=== PATIENT | male | born 1940 | race Caucasian/White ===

== ENCOUNTER → 2017-05-02 | Outpatient (CLI) | payer MEDICARE, BC ==
--- NOTE | 2017-05-02 08:47 | US ---
EXAMINATION TYPE: US duplex aorta DATE OF EXAM: 05/02/2017 COMPARISON: NONE CLINICAL HISTORY: Z13.6 CARDIOVASCULAR DISORDER. Back pain EXAM MEASUREMENTS: Abdominal Aorta: Proximal: 2.6 x 2.2cm Mid: 2.4 x 2.8cm Distal: 4.3 x 4.8cm Bifurcation: 1.8cm 2.7cm Aneurysm seen at dist level infrarenal, extending down through bilateral bifurcation IMPRESSION: Infrarenal abdominal aortic aneurysm
== END | disposition home or self-care (01) ==
LOC: RADUSWWP 07:12
PROVIDERS: ATTEND Family Medicine
DX: Z13.6 Encounter for screening for cardiovascular disorders (principal); I71.4 Abdominal aortic aneurysm, without rupture
CPT/HCPCS: 93979

== ENCOUNTER 2017-05-09 09:59 | Inpatient (IN) | payer MEDICARE, BC ==
[2017-05-09] MEDS ORDERED: SODIUM CHLORIDE 0.9% 1,000 ML IV STA (10:12)
--- NOTE | 2017-05-09 10:13 | ED ---
Chest Pain HPI - General Stated Complaint: Pneumonia Time Seen by Provider: 05/09/17 09:59 Source: patient, family, EMS, RN notes reviewed Mode of arrival: EMS - History of Present Illness Initial Comments: This is a 77-year-old male who presents with complains of a cough for the past 3 days he's had clear phlegm he also has some chest pain it started after coughing it gets worse with cough and movement. He is a decreased oral intake he was noted by paramedics have a blood pressure of 89/59 after 500 mL of IV fluid it went to 101/61. He has some dizziness. He also had a fever. He had no other complaints at this time. MD Complaint: chest pain, other - Related Data Home Medications Medication Instructions Recorded Confirmed Atorvastatin [Lipitor] 20 mg PO HS 05/09/17 05/09/17 Fluticasone/Salmeterol [Advair 1 inhalation PO RT-BID 05/09/17 05/09/17 250-50 Diskus] Isosorbide Mononitrate ER [Imdur] 30 mg PO DAILY 05/09/17 05/09/17 Levothyroxine Sodium [Synthroid] 112 mcg PO DAILY 05/09/17 05/09/17 Prasugrel [Effient] 10 mg PO DAILY 05/09/17 05/09/17 Sertraline [Zoloft] 50 mg PO DAILY 05/09/17 05/09/17 traMADol HCL [Ultram] 50 mg PO TID PRN 05/09/17 05/09/17 Allergies Allergy/AdvReac Type Severity Reaction Status Date / Time iodine Allergy Rash/Hives Verified 05/09/17 10:46 Review of Systems ROS Statement: Those systems with pertinent positive or pertinent negative responses have been documented in the HPI. ROS Other: All systems not noted in ROS Statement are negative. EKG Findings - EKG Results: EKG: interpreted by RAY, sinus rhythm (Sinus rhythm rate of 83. Interval 146 QRS duration 82 QT since QTC of 370/434 nonspecific T-wave configuration.) Course Vital Signs 05/09/17 05/09/17 05/09/17 10:00 11:11 12:11 Temperature 100.7 F H Pulse Rate 87 81 80 Respiratory 20 20 20 Rate Blood Pressure 101/55 102/58 97/54 O2 Sat by Pulse 95 95 95 Oximetry 05/09/17 14:00 Temperature Pulse Rate 80 Respiratory 20 Rate Blood Pressure 97/54 O2 Sat by Pulse 95 Oximetry Chest Pain MDM - MDM I did review the imaging and report is evidence a right lower lobe infiltrate. I did discuss findings with the patient family she'll be admitted for IV antibiotics and inpatient treatment. Lactic acid was negative. Disposition Clinical Impression: Right lower lobe pneumonia, Febrile illness, acute, Bronchospasm, acute Disposition: ADMITTED IP TO THIS HOSP Condition: Stable Referrals: Jess Singleton DO [Primary Care Provider] - 1-2 days Decision Time: 15:00
[2017-05-09 10:23] LABS: Anisocytosis Slight; Basophils % (A) 0 %; CH 28.8; CHCM 33.5; Eosinophils % (A) 0 %; HCT 36.7 % (39.0-53.0); HGB 11.9 gm/dL (13.0-17.5); Luc # (Auto) 0.07; Luc % (Auto) 1; Lymphocytes # (A) 0.5 k/uL (1.0-4.8); Lymphocytes % (A) 6 %; MCHC 32.4 g/dL (31.0-37.0); MCV 86.4 fL (80.0-100.0); Mean Platelet Volume 7.1; Monocytes # (A) 0.3 k/uL (0-1.0); Monocytes % (A) 4 %; Neutrophils # (A) 8.7 k/uL (1.3-7.7); Neutrophils % (A) 90 %; RBC 4.24 m/uL (4.30-5.90); RDW 17.1 % (11.5-15.5); WBC 9.7 k/uL (3.8-10.6); WBC (Perox) 10.17
[2017-05-09 10:40] LABS: ALT 25 U/L (21-72); AST 14 U/L (17-59); Alkaline Phosphatase 166 U/L (38-126); Anion Gap 6 mmol/L; Blood Urea Nitrogen 18 mg/dL (9-20); Calcium 8.4 mg/dL (8.4-10.2); Carbon Dioxide 24 mmol/L (22-30); Chloride 106 mmol/L (98-107); Glucose 99 mg/dL (74-99); Magnesium 1.5 mg/dL (1.6-2.3); Non-African American GFR(MDRD) >60 (>60 ml/min/1.73 sqM); Partial Thromboplastin Time 25.4 sec (22.0-30.0); Potassium 4.5 mmol/L (3.5-5.1); Prothrombin Time 10.4 sec (9.0-12.0); Sodium 136 mmol/L (137-145); Total Bilirubin 0.5 mg/dL (0.2-1.3); Total Protein 5.9 g/dL (6.3-8.2)
--- NOTE | 2017-05-09 10:43 | XR ---
EXAMINATION TYPE: XR chest 2V DATE OF EXAM: 05/09/2017 HISTORY: difficulty breathing. REFERENCE: NONE. FINDINGS: There has been a midline sternotomy. There is an S-shaped scoliosis convex to the right in the thoracic region and to the left in the lumbar region. The lungs are overinflated. There is scarring or atelectasis at both lung bases. There is confluent a irspace disease in the right lower lobe. Heart size is within normal limits. Pleural spaces are clear . IMPRESSION: 1. COPD. 2. RIGHT LOWER LOBE AIRSPACE DISEASE. 3. PROBABLE ATELECTASIS, LEFT LUNG BASE.
[2017-05-09 10:46] LABS: Creatine Kinase 53 U/L (55-170)
[2017-05-09 10:57] LABS: Creatine Kinase MB 0.5 ng/mL (0.0-2.4); Troponin I <0.012 ng/mL (0.000-0.034)
[2017-05-09] MEDS ORDERED: PIPERACILLIN-TAZOBACTAM 3.375 GM in DEXTROSE/WATER 1 50ML.BAG IVPB STA (16:03)
[2017-05-09] MEDS ORDERED: PNEUMONIA PROTOCOL UTILIZED 1 EACH MISC PO PRN (16:38)
[2017-05-09] MEDS ORDERED: LEVOFLOXACIN 750MG-D5W PMX 750 MG in DEXTROSE/WATER 1 150ML.BAG IVPB STA (16:38)
[2017-05-09] MEDS: SODIUM CHLORIDE 0.9% 1,000 ML IV SCH (18:47)
[2017-05-09] MEDS ORDERED: IPRATROPIUM-ALBUTEROL 3 ML NEB INHALATION SCH (20:00)
[2017-05-09] MEDS: SYMBICORT 80-4.5 MCG INHALER INHALATION SCH (20:38)
[2017-05-09] MEDS ORDERED: IPRATROPIUM-ALBUTEROL 3 ML NEB INHALATION PRN (20:46)
[2017-05-09] MEDS: ATORVASTATIN 20 MG TAB PO SCH (20:52)
[2017-05-09] MEDS: traMADol 50 MG TAB PO PRN (20:52)
[2017-05-10] MEDS: PIPERACILLIN-TAZOBACTAM 3.375 GM in DEXTROSE/WATER 1 50ML.BAG IVPB SCH ×2 (00:13→07:55)
[2017-05-10] MEDS: LEVOTHYROXINE 112 MCG TAB PO SCH (06:11)
[2017-05-10] MEDS: IPRATROPIUM-ALBUTEROL 3 ML NEB INHALATION SCH ×4 (07:06→19:17)
[2017-05-10] MEDS: SYMBICORT 80-4.5 MCG INHALER INHALATION SCH ×2 (07:06→19:16)
[2017-05-10] MEDS: PRASUGREL 10 MG TAB PO SCH (07:56)
[2017-05-10] MEDS: SERTRALINE 50 MG TAB PO SCH (07:56)
[2017-05-10] MEDS: ISOSORBIDE MONONITRATE ER 30 MG TAB.ER.24H PO SCH (07:56)
--- NOTE | 2017-05-10 15:02 | P.HPIM ---
History of Present Illness 77-year-old gentleman came in with compensative cough generalized weakness and back pain patient does have chronic back pain which is worse. Patient is found to have fever patient is found to have infiltrate in the right lower lung holguin. Patient was started on antibiotic therapy appropriately for pneumonia but patient was started on levofloxacin and Zosyn treating for healthcare associated pneumonia although patient doesn't qualify for healthcare associated pneumonia. Patient has significant improvement of shortness of breath since yesterday. Patient had pleuritic chest pain which completely resolved at this point of time. Patient was hypotensive blood pressure improved with IV fluid resuscitation patient can use to be in 100 mL of normal saline at this point of time. Patient was switched to ceftriaxone and erythromycin combination. Sputum cultures and blood cultures were ordered. Review of Systems REVIEW OF SYSTEMS: CONSTITUTIONAL: No fever, no malaise, no fatigue. HEENT: No recent visual problems or hearing problems. Denied any sore throat. CARDIOVASCULAR: No chest pain, orthopnea, PND, no palpitations, no syncope. PULMONARY: no hemoptysis. GASTROINTESTINAL: No diarrhea, no nausea, no vomiting, no abdominal pain. Normoactive bowel sounds. NEUROLOGICAL: No headaches, no weakness, no numbness. HEMATOLOGICAL: Denies any bleeding or petechiae. GENITOURINARY: Denies any burning micturition, frequency, or urgency. MUSCULOSKELETAL/RHEUMATOLOGICAL: Denies any joint pain, swelling, or any muscle pain. ENDOCRINE: Denies any polyuria or polydipsia. The rest of the 14-point review of systems is negative. Past Medical History Past Medical History: Coronary Artery Disease (CAD), Cancer, Chest Pain / Angina , COPD, GERD/Reflux, Hyperlipidemia, Myocardial Infarction (IN), Osteoarthritis (OA), Pneumonia, Prostate Disorder, Sleep Apnea/CPAP/BIPAP, Thyroid Disorder Additional Past Medical History / Comment(s): BACK PAIN,herniated disc, pinched nerves,emphysema, hemorrhoids,skin cancer, walt cataracts-had sx, thin skin prone to bruises/skin tears. Last Myocardial Infarction Date:: unk History of Any Multi-Drug Resistant Organisms: None Reported Past Surgical History: Coronary Bypass/CABG Additional Past Surgical History / Comment(s): cataracts, 3 vessel cabg, past peg tube since removed." lizbet in penis", hemorrhoids, ?egd. pmh : lap heller myotomy Past Anesthesia/Blood Transfusion Reactions: No Reported Reaction Smoking Status: Current every day smoker - Past Family History Mother Family Medical History: Cancer Additional Family Medical History / Comment(s): breast cancer Sister(s) Family Medical History: Cancer Additional Family Medical History / Comment(s): colon cancer Father History Unknown: Yes Additional Family Medical History / Comment(s): pt's father when pt was 3 years old. Medications and Allergies Home Medications Medication Instructions Recorded Confirmed Type Atorvastatin [Lipitor] 20 mg PO HS 05/09/17 05/09/17 History Fluticasone/Salmeterol [Advair 1 inhalation PO RT-BID 05/09/17 05/09/17 History 250-50 Diskus] Isosorbide Mononitrate ER [Imdur] 30 mg PO DAILY 05/09/17 05/09/17 History Levothyroxine Sodium [Synthroid] 112 mcg PO DAILY 05/09/17 05/09/17 History Prasugrel [Effient] 10 mg PO DAILY 05/09/17 05/09/17 History Sertraline [Zoloft] 50 mg PO DAILY 05/09/17 05/09/17 History traMADol HCL [Ultram] 50 mg PO TID PRN 05/09/17 05/09/17 History Allergies Allergy/AdvReac Type Severity Reaction Status Date / Time iodine Allergy Rash/Hives Verified 05/09/17 10:46 Physical Exam Vitals: Vital Signs Temp Pulse Pulse Resp BP BP Pulse Ox 05/10/17 11:27 68 05/10/17 11:08 70 05/10/17 07:19 78 05/10/17 07:09 76 14 05/10/17 07:00 96.4 F L 67 16 98/52 96 05/09/17 23:00 99.2 F 74 14 89/52 100 05/09/17 22:42 16 05/09/17 18:34 95.0 F L 83 16 103/62 99 05/09/17 18:07 98.5 F 76 20 97/54 97 05/09/17 16:38 99.1 F 05/09/17 16:00 74 18 94/57 95 05/09/17 15:00 78 18 93/42 95 Intake and Output 05/09/17 05/10/17 05/10/17 22:59 06:59 14:59 Output Total 725 Balance -725 Output: Urine 725 Other: # Voids 1 # Bowel Movements 1 Results CBC & Chem 7: 05/09/17 10:10 05/09/17 10:10 Labs: Microbiology - Last 24 Hours (Table) 05/09/17 10:10 Blood Culture - Preliminary Blood No Growth after 24 hours Thrombosis Risk Factor Assmnt - Choose All That Apply Any of the Below Risk Factors Present?: Yes Each Factor Represents 1 point: Abnormal pulmonary function (COPD), Serious lung disease incl. pneumonia (< 1month), Swollen legs (current) Other Risk Factors: Yes Each Risk Factor Represents 2 Points: Malignancy Each Risk Factor Represents 3 Points: Age 75 years or older Other congenital or acquired thrombophilia - If yes, enter type in comment: No Thrombosis Risk Factor Assessment Total Risk Factor Score: 8 Thrombosis Risk Factor Assessment Level: High Risk Assessment and Plan Plan: 1 sepsis secondary to right lower lobe pneumonia come in today quite most probably pneumococcal pneumonia for which patient is on Rocephin and azithromycin awaiting cultures as mentioned above. #2 COPD: Doesn't have any significant exacerbation. Patient is willing to quit smoking. #3 gastric severely reflux disease #4 hyperlipidemia #5 coronary artery disease #6 sleep apnea uses CPAP machine at home. #7 hypothyroidism Patient will be treated for sepsis with cephalexin and azithromycin with close clinical monitoring awaiting blood cultures and the sputum cultures and for rest of the above-mentioned chronic mental problems patient will continued on home medications.
--- NOTE | 2017-05-10 15:05 | XR ---
EXAMINATION TYPE: XR chest 2V DATE OF EXAM: 05/10/2017 COMPARISON: 05/09/2017 HISTORY: Cough and concern for pneumonia TECHNIQUE: Frontal and lateral views of the chest are obtained. FINDINGS: Improving right lower lobe airspace disease is again appreciated. Left basal atelectasis i s seen. Remainder the lungs are clear. Cardia mediastinal silhouette is within normal limits with pos tsurgical changes and surgical lopez noted at the gastroesophageal junction. Osseous structures quin ear intact. IMPRESSION: Improving right lower lobe pneumonia. Persistent left basilar atelectasis.
[2017-05-10] MEDS ORDERED: LEVOFLOXACIN 750 MG TAB PO SCH (17:00)
[2017-05-10] MEDS: SODIUM CHLORIDE 0.9% 1,000 ML IV SCH (18:13)
[2017-05-10] MEDS: traMADol 50 MG TAB PO PRN (18:15)
[2017-05-10] MEDS: ATORVASTATIN 20 MG TAB PO SCH (20:34)
[2017-05-11] MEDS: LEVOTHYROXINE 112 MCG TAB PO SCH (06:19)
[2017-05-11] MEDS: PRASUGREL 10 MG TAB PO SCH (08:01)
[2017-05-11] MEDS: ISOSORBIDE MONONITRATE ER 30 MG TAB.ER.24H PO SCH (08:01)
[2017-05-11] MEDS: SERTRALINE 50 MG TAB PO SCH (08:01)
[2017-05-11 08:04] VITALS: BP 111/60; TEMP 97.5
[2017-05-11] MEDS: traMADol 50 MG TAB PO PRN (08:04)
[2017-05-11] MEDS: SYMBICORT 80-4.5 MCG INHALER INHALATION SCH (08:15)
[2017-05-11] MEDS: IPRATROPIUM-ALBUTEROL 3 ML NEB INHALATION SCH ×2 (08:15→11:34)
[2017-05-11 08:24] LABS: Anisocytosis Slight; CH 28.4; CHCM 33.6; HCT 32.5 % (39.0-53.0); HDW 2.65; HGB 10.6 gm/dL (13.0-17.5); MCH 27.5 pg (25.0-35.0); MCHC 32.5 g/dL (31.0-37.0); MCV 84.6 fL (80.0-100.0); Mean Platelet Volume 8.1; RBC 3.84 m/uL (4.30-5.90); RDW 16.9 % (11.5-15.5); WBC 5.8 k/uL (3.8-10.6)
[2017-05-11 08:39] LABS: Anion Gap 3 mmol/L; Blood Urea Nitrogen 12 mg/dL (9-20); Calcium 8.4 mg/dL (8.4-10.2); Carbon Dioxide 27 mmol/L (22-30); Chloride 109 mmol/L (98-107); Glucose 92 mg/dL (74-99); Non-African American GFR(MDRD) >60 (>60 ml/min/1.73 sqM); Potassium 4.5 mmol/L (3.5-5.1); Sodium 139 mmol/L (137-145)
[2017-05-11] MEDS ORDERED: AZITHROMYCIN 500 MG TAB PO SCH (09:00)
[2017-05-11 11:36] VITALS: PULSE 74; RESP 14
--- NOTE | 2017-05-11 12:47 | P.DS ---
Providers Date of admission: 05/09/17 16:38 Attending physician: Rosanna Guaman Primary care physician: Jess Singleton Hospital Course: Patient was admitted for sepsis secondary to right lower lobe pneumonia symptoms of which improved and patient will ablate the patient in the hallway and if his vitals are stable and if his saturations are okay patient will be discharged with extensive counseling for his smoking. PHYSICAL EXAMINATION: GENERAL: The patient is alert and oriented x3, not in any acute distress. Well developed, well nourished. HEENT: Pupils are round and equally reacting to light. EOMI. No scleral icterus. No conjunctival pallor. Normocephalic, atraumatic. No pharyngeal erythema. No thyromegaly. CARDIOVASCULAR: S1 and S2 present. No murmurs, rubs, or gallops. PULMONARY: Chest is clear to auscultation, no wheezing or crackles. ABDOMEN: Soft, nontender, nondistended, normoactive bowel sounds. No palpable organomegaly. MUSCULOSKELETAL: No joint swelling or deformity. EXTREMITIES: No cyanosis, clubbing, or pedal edema. NEUROLOGICAL: Gross neurological examination did not reveal any focal deficits. SKIN: No rashes. 1 sepsis secondary to right lower lobe pneumonia come in today quite most probably pneumococcal pneumonia for which patient is on Rocephin and azithromycin awaiting cultures as mentioned above. #2 COPD: Doesn't have any significant exacerbation. Patient is willing to quit smoking. #3 gastric severely reflux disease #4 hyperlipidemia #5 coronary artery disease #6 sleep apnea uses CPAP machine at home. #7 hypothyroidism Patient Condition at Discharge: Stable Plan - Discharge Summary New Discharge Prescriptions: New Azithromycin [Zithromax] 500 mg PO DAILY #5 tab Cefuroxime Axetil [Ceftin] 500 mg PO BID #14 tab Continue traMADol HCL [Ultram] 50 mg PO TID PRN PRN Reason: Pain Prasugrel [Effient] 10 mg PO DAILY Sertraline [Zoloft] 50 mg PO DAILY Levothyroxine Sodium [Synthroid] 112 mcg PO DAILY Isosorbide Mononitrate ER [Imdur] 30 mg PO DAILY Fluticasone/Salmeterol [Advair 250-50 Diskus] 1 inhalation PO RT-BID Atorvastatin [Lipitor] 20 mg PO HS Discharge Medication List Atorvastatin [Lipitor] 20 mg PO HS 05/09/17 [History] Fluticasone/Salmeterol [Advair 250-50 Diskus] 1 inhalation PO RT-BID 05/09/17 [ History] Isosorbide Mononitrate ER [Imdur] 30 mg PO DAILY 05/09/17 [History] Levothyroxine Sodium [Synthroid] 112 mcg PO DAILY 05/09/17 [History] Prasugrel [Effient] 10 mg PO DAILY 05/09/17 [History] Sertraline [Zoloft] 50 mg PO DAILY 05/09/17 [History] traMADol HCL [Ultram] 50 mg PO TID PRN 05/09/17 [History] Azithromycin [Zithromax] 500 mg PO DAILY #5 tab 05/11/17 [Rx] Cefuroxime Axetil [Ceftin] 500 mg PO BID #14 tab 05/11/17 [Rx] Follow up Appointment(s)/Referral(s): Jess Singleton DO [Primary Care Provider] - 05/16/17 10:20 am [facility], [NON-STAFF] - Patient Instructions/Handouts: Pneumonia (DC) Discharge Disposition: HOME SELF-CARE
== END 2017-05-11 15:33 | disposition home health service (06) | DRG 871 ==
LOC: EC 09:59 → 4MS4W 16:38
PROVIDERS: ADMIT Internal Medicine; ATTEND Internal Medicine
DX: A41.9 Sepsis, unspecified organism (principal); J13 Pneumonia due to Streptococcus pneumoniae; J44.0 Chronic obstructive pulmonary disease with (acute) lower respiratory infection; E03.9 Hypothyroidism, unspecified; E78.5 Hyperlipidemia, unspecified; F17.200 Nicotine dependence, unspecified, uncomplicated; G47.30 Sleep apnea, unspecified; G89.29 Other chronic pain; I25.10 Atherosclerotic heart disease of native coronary artery without angina pectoris; K21.9 Gastro-esophageal reflux disease without esophagitis; Y95 Nosocomial condition; Z79.899 Other long term (current) drug therapy; I25.2 Old myocardial infarction; Z80.0 Family history of malignant neoplasm of digestive organs; Z80.3 Family history of malignant neoplasm of breast; Z85.828 Personal history of other malignant neoplasm of skin; Z95.1 Presence of aortocoronary bypass graft
CPT/HCPCS: 36415; 71020; 80048; 80053; 82550; 82553; 83605; 83735; 83880; 84484; 85025; 85027; 85610; 85730; 87040; 87070; 87205; 93005; 94640; 94760; 96360; 96361; 99285

== ENCOUNTER → 2018-03-22 | Outpatient (CLI) | payer SELFPAY ==
[2018-03-22 10:35] LABS: Blood Urea Nitrogen 21 mg/dL (9-20)
--- NOTE | 2018-03-22 13:40 | CT ---
EXAMINATION TYPE: CT angio abdomen pelvis DATE OF EXAM: 03/22/2018 11:21 AM COMPARISON: Ultrasound dated 04/30/2017 HISTORY: Known aneurysm. Follow-up exam. CT DLP: 330.5 mGycm Automated exposure control for dose reduction was used. TECHNIQUE: Performed with IV Contrast, patient injected with 100 mL of Isovue 370. Standard CTA abdomen and pelv is was performed per departmental protocol. 3-D reformats of the vasculature were performed at a [employer] workstation. FINDINGS: LUNGS: Peripheral basilar predominant reticular opacities are seen that may represent early fibrosis or senescent change. VASCULATURE: There is tortuosity of the visualized descending thoracic aorta. Moderate upper abdomina l calcific and noncalcific atheromatous changes are seen with severe lower abdominal and left iliac c alcific and noncalcific atheromatous changes. There is tortuosity of the descending thoracic aorta in addition to a long segment infrarenal aortic aneurysm beginning approximately 4.3 cm distal to the l eft renal artery and extending to the aortoiliac bifurcation over a craniocaudal length of 6.3 cm. Th is measures up to 5.5 x 4.9 cm on series 4 image 36. There is extent into the left common iliac arter y with the left common iliac artery measuring up to 3.7 cm and ectasia of the left external iliac art olga. Aneurysmal dilatation is seen of the entirety of the left common iliac artery. There is greater than 50% luminal stenosis from circumferential atheromatous plaquing within the left common iliac art olga. The celiac, superior mesenteric, and renal arteries are patent. There appears to be occlusion of the inferior mesenteric artery, however inferior mesenteric artery branches appear somewhat opacified lik yonas related to collateral flow. BOWEL: Postsurgical changes are seen at the gastroesophageal junction. No dilated large or small tamiko l is noted. Scattered colonic diverticula are present. Few small bowel air-fluid levels are seen with out dilatation suggesting increased transit time. Appendix is air-filled and within normal limits. LIVER/GALLBLADDER: The liver is grossly unremarkable. No cholelithiasis. SPLEEN: Unremarkable without splenomegaly. ADRENAL GLANDS: No nodularity or thickening. PANCREAS: No ductal dilatation. Moderate pancreatic probable atrophy is seen. KIDNEYS: There is a 3 cm left upper pole cyst, 4 cm left midpole cyst, and a 1.1 cm left lower pole c ysts. Nonobstructing left 4 mm lower pole calculus is seen as well as a small amount of perinephric f luid. On the right there is a small exophytic right lower pole 1.0 cm cyst. REPRODUCTIVE ORGANS: Prostate gland is enlarged measuring 5.3 cm in transverse dimension with numerou s central zone calcifications and penile prosthesis is incidentally noted. LYMPH NODES: No greater than 1 cm short axis lymph node is seen within the abdomen or pelvis. OSSEOUS STRUCTURES: Moderate multilevel degenerative changes of the spine are noted. Geographic lesio n within the left femoral head is seen without subchondral collapse this appears atypical for avascul ar necrosis and could be further evaluated with MR as this could represent a geode or other lesion. IMPRESSION: 1. INCREASING SIZE OF THE INFRARENAL ABDOMINAL AORTIC ANEURYSM CURRENTLY MEASURING UP TO 5.5 X 4.9 CM (PREVIOUSLY MEASURING 4.3 X 4.8 CM ON THE PRIOR ULTRASOUND OF 05/02/2017). THERE IS EXTENT INTO THE L EFT COMMON ILIAC ARTERY MEASURING UP TO 3.7 CM. EXTENSIVE CALCIFIC AND NONCALCIFIC ATHEROMATOUS PLAQU ING IS SEEN OF THE ABDOMINAL AORTA AND ITS BRANCHES CREATING GREATER THAN 50% LUMINAL DIAMETER OF THE ENTIRETY OF THE LEFT COMMON ILIAC ARTERY. 2. 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 3. GEOGRAPHIC LESION WITHIN THE LEFT FEMORAL HEAD WITHOUT FEMORAL HEAD COLLAPSE. THIS IS ATYPICAL FOR AVASCULAR NECROSIS AND COULD REPRESENT A GEODE OR OTHER LESION. FURTHER CHARACTERIZATION WITH MR COU LD BE PERFORMED.
== END | disposition home or self-care (01) ==
LOC: RADCTMAIN 09:52
PROVIDERS: ATTEND Thoracic Surgery (Cardiothoracic Vascular Surgery)
DX: I71.4 Abdominal aortic aneurysm, without rupture (principal); I70.0 Atherosclerosis of aorta; K55.069 Acute infarction of intestine, part and extent unspecified; M89.8X5 Other specified disorders of bone, thigh
CPT/HCPCS: 82565; 84520; 74174; Q9967

== ENCOUNTER → 2018-05-10 | Outpatient (CLI) | payer MEDICARE ==
--- NOTE | 2018-05-11 07:54 | CT ---
EXAMINATION TYPE: CT chest wo con DATE OF EXAM: 05/10/2018 COMPARISON: HISTORY: Cough and shortness of breath. CT DLP: 306.[address] of the chest was performed with lung and mediastinal window settings submitted. The la ck of contrast limits evaluation of the vascular, mediastinal and parenchymal structures including th e upper abdomen. LUNGS: There are scattered subpleural fibrosis compatible with mild etiopathic pulmonary fibrosis. Th ere is mild upper lobe emphysematous change greatest in the right lung apex. No evidence for nodule o r infiltrate. No pleural effusion detected. MEDIASTINUM/BRIANA: Thoracic aorta is of normal caliber with limited evaluation given lack of contrast . The heart is not enlarged. No evidence for mediastinal mass. No lymph nodes greater than 1cm. UPPER ABDOMEN: Renal cystic changes noted. Small sliding-type hiatal hernia. OTHER: No significant other abnormality. IMPRESSION: 1. Mild changes of hepatic pulmonary fibrosis. 2. Upper lobe emphysematous change.
== END | disposition home or self-care (01) ==
LOC: RADCTMAIN 17:48
PROVIDERS: ATTEND Internal Medicine
DX: J84.10 Pulmonary fibrosis, unspecified (principal); J44.9 Chronic obstructive pulmonary disease, unspecified
CPT/HCPCS: 71250

== ENCOUNTER 2019-02-20 13:49 | Emergency (ER) | payer MEDICARE ==
[2019-02-20 13:58] VITALS: TEMP 97.7
[2019-02-20] MEDS ORDERED: SODIUM CHLORIDE 0.9% 1,000 ML IV STA (14:28)
[2019-02-20 14:53] LABS: Basophils % (A) 0 %; Eosinophils # (A) 0.1 k/uL (0-0.7); Eosinophils % (A) 1 %; HCT 41.5 % (39.0-53.0); HGB 13.2 gm/dL (13.0-17.5); Lymphocytes # (A) 2.2 k/uL (1.0-4.8); Lymphocytes % (A) 25 %; MCH 26.9 pg (25.0-35.0); MCHC 31.9 g/dL (31.0-37.0); MCV 84.4 fL (80.0-100.0); Mean Platelet Volume 7.2; Monocytes # (A) 0.5 k/uL (0-1.0); Monocytes % (A) 6 %; Neutrophils # (A) 5.9 k/uL (1.3-7.7); Neutrophils % (A) 67 %; Platelet Count 190 k/uL (150-450); RBC 4.92 m/uL (4.30-5.90); RDW 15.7 % (11.5-15.5); WBC 8.8 k/uL (3.8-10.6)
--- NOTE | 2019-02-20 14:54 | ED ---
General Adult HPI - General Chief complaint: Urogenital Stated complaint: Trouble Urinating Time Seen by Provider: 02/20/19 14:16 Source: patient, RN notes reviewed, old records reviewed Mode of arrival: wheelchair Limitations: no limitations - History of Present Illness Initial comments: 78-year-old male patient with past medical history including COPD, h yperlipidemia, prior SC, coronary artery disease presents ED with chief complaint of approximately 3 months of dysuria, urinary frequency, urgency. Patient reports that after urination he has mild burning in his urethra. Patient also reports that he has to urinate many times today and he is not able to continue the bathroom in time he has a small amount of urinary leakage. Patient states that he does have a history of BPH. Patient reports that he has been seen by his primary care provider for this and has been wearing a condom catheter at home. Patient reports that he condom catheter is inconvenient and he wishes to have a urinary catheter placed. Patient states that he presented to his primary care provider for this complaint and was retracted to the emergency department as he states that they did not place urinary catheters at the office. Patient denies any other complaints at this time. Denies any chest pain shortness breath abdominal pain nausea vomiting diarrhea. Systemic: Pt denies fatigue, fever/chills, rash. Pt denies weakness, night sweats, weight loss. Neuro: Pt denies headache, visual disturbances, syncope or pre-syncope. HEENT: Pt denies ocular discharge or irritation, otalgia, rhinorrhea, pharyngitis or notable lymphadenopathy. Cardiopulmonary: Pt denies chest pain, SOB, heart palpitations, dyspnea on exertion. Abdominal/GI: Pt denies abdominal pain, n/v/d. : Pt denies dysuria, burning w/ urination, frequency/urgency. Denies new onset urinary or bowel incontinence. MSK: Pt denies myalgia, loss of strength or function in extremities. Neuro: Pt denies new onset weakness, paresthesias. - Related Data Home Medications Medication Instructions Recorded Confirmed Atorvastatin [Lipitor] 20 mg PO HS 05/09/17 02/20/19 Isosorbide Mononitrate ER [Imdur] 30 mg PO DAILY 05/09/17 02/20/19 Levothyroxine Sodium [Synthroid] 112 mcg PO DAILY 05/09/17 02/20/19 Prasugrel [Effient] 10 mg PO DAILY 05/09/17 02/20/19 Sertraline [Zoloft] 50 mg PO DAILY 05/09/17 02/20/19 Aspirin 325 mg PO DAILY 02/20/19 02/20/19 Fluticasone/Salmeterol [Advair 1 puff INHALATION RT-BID 02/20/19 02/20/19 500-50 Diskus] Tiotropium [place] [Spiriva] 1 cap INHALATION RT-DAILY 02/20/19 02/20/19 Tolterodine ER [Detrol LA] 2 mg PO DAILY 02/20/19 02/20/19 Previous Rx's Medication Instructions Recorded Cephalexin [Keflex] 500 mg PO Q12HR 10 Days cap 02/20/19 Allergies Allergy/AdvReac Type Severity Reaction Status Date / Time iodine Allergy Rash/Hives Verified 02/20/19 14:30 Review of Systems ROS Statement: Those systems with pertinent positive or pertinent negative responses have been documented in the HPI. ROS Other: All systems not noted in ROS Statement are negative. Past Medical History Past Medical History: Coronary Artery Disease (CAD), Cancer, Chest Pain / Angina, COPD, GERD/Reflux, Hyperlipidemia, Myocardial Infarction ([place]), Osteoarthritis (OA), Pneumonia, Prostate Disorder, Sleep Apnea/CPAP/BIPAP, Thyroid Disorder Additional Past Medical History / Comment(s): BACK PAIN,herniated disc, pinched nerves,emphysema, hemorrhoids,skin cancer, walt cataracts-had sx, thin skin prone to bruises/skin tears. Last Myocardial Infarction Date:: unk History of Any Multi-Drug Resistant Organisms: None Reported Past Surgical History: Coronary Bypass/CABG Additional Past Surgical History / Comment(s): cataracts, 3 vessel cabg, past peg tube since removed." lizbet in penis", hemorrhoids, ?egd. pmh : lap heller myotomy Past Anesthesia/Blood Transfusion Reactions: No Reported Reaction Past Psychological History: No Psychological Hx Reported Smoking Status: Current every day smoker Past Alcohol Use History: Rare Past Drug Use History: None Reported - Past Family History Mother Family Medical History: Cancer Additional Family Medical History / Comment(s): breast cancer Sister(s) Family Medical History: Cancer Additional Family Medical History / Comment(s): colon cancer Father History Unknown: Yes Additional Family Medical History / Comment(s): pt's father when pt was 3 years old. General Exam - General Exam Comments Initial Comments: Constitutional: NAD, AOX3, Pt has pleasant affect. HEENT: NC/AT, trachea midline, neck supple, no lymphadenopathy. Posterior pharynx non erythematous, without exudates. External ears appear normal, without discharge. Mucous membranes moist. Eyes PERRLA, EOM intact. There is no scleral icterus. No pallor noted. Cardiopulmonary: RRR, no murmurs, rubs or gallops, no JVD noted. Lungs CTAB in anterior and posterior holguin. No peripheral edema. Abdominal exam: Abdomen soft and non-distended. Abdomen non-tender to palpation in all 4 quadrants. Bowel sounds active in LLQ. No hepatosplenomegaly. No ecchymosis Neuro: CN II-XII grossly intact. No nuchal rigidity. No raccon eyes, no ordonez sign, no hemotympanum. No cervical spinal tenderness. MSK: No posterior calf tenderness bilaterally, homans sign negative bilaterally. Posterior tibialis and radial pulse +2 bilaterally. Sensation intact in upper and lower extremities. Full active ROM in upper and lower extremities, 5/5 stregnth. Limitations: no limitations Course Vital Signs 02/20/19 02/20/19 02/20/19 13:52 15:30 16:22 Temperature 97.7 F Pulse Rate 99 76 77 Respiratory 18 18 18 Rate Blood Pressure 90/64 100/69 108/76 O2 Sat by Pulse 92 L 98 96 Oximetry 02/20/19 17:02 Temperature Pulse Rate 71 Respiratory 17 Rate Blood Pressure 123/80 O2 Sat by Pulse 94 L Oximetry Medical Decision Making - Medical Decision Making 78-year-old male patient with past medical history including COPD, hyperlipidemia, prior SC, coronary artery disease presents ED with chief complaint of approximately 3 months of dysuria, urinary frequency, urgency. Patient reports that after urination he has mild burning in his urethra. Patient also reports that he has to urinate many times today and he is not able to continue the bathroom in time he has a small amount of urinary leakage. Patient states that he does have a history of BPH. Patient reports that he has been seen by his primary care provider for this and has been wearing a condom catheter at home. Patient reports that he condom catheter is inconvenient and he wishes to have a urinary catheter placed. Patient states that he presented to his primary care provider for this complaint and was retracted to the emergency department as he states that they did not place urinary catheters at the office. Patient denies any other complaints at this time. Denies any chest pain shortness breath abdominal pain nausea vomiting diarrhea. Patient also has dental, afebrile. Physical exam did not display acute pathology. O2 investigations revealed nonspecific CBC, CMP. Lactic acid 1.0. UA displayed mild urinary tract infection. Culture pending. Bladder scan displayed approximately 70 residual post void. Patient will be discharged, will follow up with urology in one to 2 days. Patient discharged on Keflex. Administered 1 g Rocephin here. Patient will return to ER if condition worsens. Case discussed with Dr. Shea. - Lab Data Result diagrams: 02/20/19 14:40 02/20/19 14:40 Lab Results 02/20/19 02/20/19 02/20/19 Range/Units 14:40 14:40 14:40 WBC 8.8 (3.8-10.6) k/uL RBC 4.92 (4.30-5.90) m/uL Hgb 13.2 (13.0-17.5) gm/dL Hct 41.5 (39.0-53.0) % MCV 84.4 (80.0-100.0) fL MCH 26.9 (25.0-35.0) pg MCHC 31.9 (31.0-37.0) g/dL RDW 15.7 H (11.5-15.5) % Plt Count 190 (150-450) k/uL Neutrophils % 67 % Lymphocytes % 25 % Monocytes % 6 % Eosinophils % 1 % Basophils % 0 % Neutrophils # 5.9 (1.3-7.7) k/uL Lymphocytes # 2.2 (1.0-4.8) k/uL Monocytes # 0.5 (0-1.0) k/uL Eosinophils # 0.1 (0-0.7) k/uL Basophils # 0.0 (0-0.2) k/uL Sodium 140 (137-145) mmol/L Potassium 4.6 (3.5-5.1) mmol/L Chloride 108 H (98-107) mmol/L Carbon Dioxide 29 (22-30) mmol/L Anion Gap 3 mmol/L BUN 19 (9-20) mg/dL Creatinine 0.87 (0.66-1.25) mg/dL Est GFR (CKD-EPI)AfAm >90 (>60 ml/min/1.73 sqM) Est GFR (CKD-EPI)NonAf 82 (>60 ml/min/1.73 sqM) Glucose 108 H (74-99) mg/dL Plasma Lactic Acid Kiran 1.0 (0.7-2.0) mmol/L Calcium 9.2 (8.4-10.2) mg/dL Total Bilirubin 0.4 (0.2-1.3) mg/dL AST 14 L (17-59) U/L ALT 10 L (21-72) U/L Alkaline Phosphatase 113 (38-126) U/L Total Protein 6.3 (6.3-8.2) g/dL Albumin 3.5 (3.5-5.0) g/dL Urine Color Urine Appearance (Clear) Urine pH (5.0-8.0) Ur Specific [place] (1.001-1.035) Urine Protein (Negative) Urine Glucose (UA) (Negative) Urine Ketones (Negative) Urine Blood (Negative) Urine Nitrite (Negative) Urine Bilirubin (Negative) Urine Urobilinogen (<2.0) mg/dL Ur Leukocyte Esterase (Negative) Urine RBC (0-5) /hpf Urine WBC (0-5) /hpf Ur Squamous Epith Cells (0-4) /hpf Urine Bacteria (None) /hpf Hyaline Casts (0-2) /lpf Urine Mucus (None) /hpf 02/20/19 Range/Units 15:00 WBC (3.8-10.6) k/uL RBC (4.30-5.90) m/uL Hgb (13.0-17.5) gm/dL Hct (39.0-53.0) % MCV (80.0-100.0) fL MCH (25.0-35.0) pg MCHC (31.0-37.0) g/dL RDW (11.5-15.5) % Plt Count (150-450) k/uL Neutrophils % % Lymphocytes % % Monocytes % % Eosinophils % % Basophils % % Neutrophils # (1.3-7.7) k/uL Lymphocytes # (1.0-4.8) k/uL Monocytes # (0-1.0) k/uL Eosinophils # (0-0.7) k/uL Basophils # (0-0.2) k/uL Sodium (137-145) mmol/L Potassium (3.5-5.1) mmol/L Chloride (98-107) mmol/L Carbon Dioxide (22-30) mmol/L Anion Gap mmol/L BUN (9-20) mg/dL Creatinine (0.66-1.25) mg/dL Est GFR (CKD-EPI)AfAm (>60 ml/min/1.73 sqM) Est GFR (CKD-EPI)NonAf (>60 ml/min/1.73 sqM) Glucose (74-99) mg/dL Plasma Lactic Acid Kiran (0.7-2.0) mmol/L Calcium (8.4-10.2) mg/dL Total Bilirubin (0.2-1.3) mg/dL AST (17-59) U/L ALT (21-72) U/L Alkaline Phosphatase (38-126) U/L Total Protein (6.3-8.2) g/dL Albumin (3.5-5.0) g/dL Urine Color Yellow Urine Appearance Clear (Clear) Urine pH 6.0 (5.0-8.0) Ur Specific [place] 1.021 (1.001-1.035) Urine Protein 1+ H (Negative) Urine Glucose (UA) Negative (Negative) Urine Ketones Negative (Negative) Urine Blood Small H (Negative) Urine Nitrite Negative (Negative) Urine Bilirubin Negative (Negative) Urine Urobilinogen 2.0 (<2.0) mg/dL Ur Leukocyte Esterase Negative (Negative) Urine RBC 17 H (0-5) /hpf Urine WBC 7 H (0-5) /hpf Ur Squamous Epith Cells 1 (0-4) /hpf Urine Bacteria Rare H (None) /hpf Hyaline Casts 4 H (0-2) /lpf Urine Mucus Few H (None) /hpf Disposition Clinical Impression: UTI (urinary tract infection) Disposition: HOME SELF-CARE Condition: Stable Instructions (If sedation given, give patient instructions): Urinary Tract Infection in Men (ED) Additional Instructions: Patient to adhere to previously discussed treatment plan and will take medica tion(s) as directed. Patient to follow up with PCP in 1-2 days. Patient to return to ED if symptoms do not improve. Medications directed. Follow up with primary care provider angiologist 1-2 days. Return to ER if condition worsens in any way. Prescriptions: Cephalexin [Keflex] 500 mg PO Q12HR 10 Days cap Is patient prescribed a controlled substance at d/c from ED?: No Referrals: Jess Singleton DO [Primary Care Provider] - 1-2 days Danilo Villanueva MD [STAFF PHYSICIAN] - 1-2 days
[2019-02-20 15:05] LABS: ALT 10 U/L (21-72); AST 14 U/L (17-59); African American GFR (CKD) >90 (>60 ml/min/1.73 sqM); Albumin 3.5 g/dL (3.5-5.0); Alkaline Phosphatase 113 U/L (38-126); Anion Gap 3 mmol/L; Blood Urea Nitrogen 19 mg/dL (9-20); Calcium 9.2 mg/dL (8.4-10.2); Carbon Dioxide 29 mmol/L (22-30); Chloride 108 mmol/L (98-107); Glucose 108 mg/dL (74-99); Potassium 4.6 mmol/L (3.5-5.1); Sodium 140 mmol/L (137-145); Total Bilirubin 0.4 mg/dL (0.2-1.3); Total Protein 6.3 g/dL (6.3-8.2)
[2019-02-20 15:24] LABS: Appearance,Urine Clear (Clear); Bacteria,Urine Rare /hpf; Bilirubin,Urine Negative (Negative); Blood,Urine Small (Negative); Color,Urine Yellow; Glucose,Urine (UA) Negative (Negative); Hyaline Casts,Urine 4 /lpf (0-2); Ketones,Urine Negative (Negative); Leukocyte Esterase,Urine Negative (Negative); Mucus,Urine Few /hpf; Nitrite,Urine Negative (Negative); Protein,Urine 1+ (Negative); RBC,Urine 17 /hpf (0-5); Specific Gravity,Urine 1.021 (1.001-1.035); Squamous Epithelial Cell,Urine 1 /hpf (0-4); WBC,Urine 7 /hpf (0-5)
[2019-02-20] MEDS ORDERED: cefTRIAXone IN SWFI 1,000 MG/10 ML SYRINGE IVP STA (15:37)
[2019-02-20 17:03] VITALS: BP 123/80; PULSE 71; RESP 17
== END 2019-02-20 17:05 | disposition home or self-care (01) ==
LOC: EC 13:49
DX: N39.0 Urinary tract infection, site not specified (principal); I25.10 Atherosclerotic heart disease of native coronary artery without angina pectoris; J44.9 Chronic obstructive pulmonary disease, unspecified; E78.5 Hyperlipidemia, unspecified; I25.2 Old myocardial infarction; E07.9 Disorder of thyroid, unspecified; F17.200 Nicotine dependence, unspecified, uncomplicated; G47.30 Sleep apnea, unspecified; Z99.89 Dependence on other enabling machines and devices; Z87.438 Personal history of other diseases of male genital organs; Z85.828 Personal history of other malignant neoplasm of skin; Z95.1 Presence of aortocoronary bypass graft; Z79.890 Hormone replacement therapy; Z79.82 Long term (current) use of aspirin; Z79.51 Long term (current) use of inhaled steroids; Z79.899 Other long term (current) drug therapy; Z91.048 Other nonmedicinal substance allergy status
CPT/HCPCS: 99284; 96374; 96361; 36415; 80053; 83605; 85025; 81001; 87086; J0696

== ENCOUNTER 2019-03-29 11:06 | Inpatient (IN) | payer MEDICARE ==
[2019-03-29 11:46] LABS: Basophils # (A) 0.1 k/uL (0-0.2); Basophils % (A) 0 %; Eosinophils # (A) 0.1 k/uL (0-0.7); Eosinophils % (A) 1 %; HCT 36.7 % (39.0-53.0); Lymphocytes # (A) 1.8 k/uL (1.0-4.8); Lymphocytes % (A) 17 %; MCHC 32.8 g/dL (31.0-37.0); MCV 82.3 fL (80.0-100.0); Mean Platelet Volume 7.2; Monocytes # (A) 0.4 k/uL (0-1.0); Monocytes % (A) 4 %; Neutrophils # (A) 8.4 k/uL (1.3-7.7); Neutrophils % (A) 77 %; Platelet Count 155 k/uL (150-450); RBC 4.46 m/uL (4.30-5.90); RDW 15.3 % (11.5-15.5); WBC 10.9 k/uL (3.8-10.6)
--- NOTE | 2019-03-29 11:50 | XR ---
EXAMINATION TYPE: XR chest 2V DATE OF EXAM: 03/29/2019 COMPARISON: May 10, 2017 HISTORY: Shortness of breath TECHNIQUE: Frontal and lateral views of the chest are obtained. FINDINGS: Scattered senescent parenchymal changes noted. Hyperinflation compatible with COPD. No evidence for infiltrate. No evidence for atelectasis. Heart size is stable. Hiatal hernia. Mediastinal structures are stable and grossly unremarkable. No evidence for hilar prominence. Degenerative changes dorsal spine. IMPRESSION: 1. No evidence for acute pulmonary disease.
[2019-03-29] MEDS ORDERED: IPRATROPIUM-ALBUTEROL 3 ML NEB INHALATION STA ×2 (11:56→14:16)
[2019-03-29] MEDS ORDERED: methylPREDNISolone SOD SUCCI 125 MG/2 ML VIAL IV STA (11:56)
[2019-03-29 12:02] LABS: Partial Thromboplastin Time 24.8 sec (22.0-30.0); Prothrombin Time 10.6 sec (9.0-12.0)
[2019-03-29 12:06] LABS: ALT 8 U/L (21-72); AST 13 U/L (17-59); African American GFR (CKD) >90 (>60 ml/min/1.73 sqM); Albumin 3.3 g/dL (3.5-5.0); Alkaline Phosphatase 112 U/L (38-126); Anion Gap 6 mmol/L; Blood Urea Nitrogen 16 mg/dL (9-20); Calcium 8.9 mg/dL (8.4-10.2); Carbon Dioxide 26 mmol/L (22-30); Chloride 108 mmol/L (98-107); Glucose 107 mg/dL (74-99); Magnesium 1.8 mg/dL (1.6-2.3); Potassium 3.8 mmol/L (3.5-5.1); Sodium 140 mmol/L (137-145); Total Bilirubin 0.5 mg/dL (0.2-1.3)
--- NOTE | 2019-03-29 13:53 | ED ---
SOB HPI - General Source: patient, EMS Mode of arrival: EMS Limitations: physical limitation <Yanet Sauceda - Last Filed: 03/29/19 17:35> <William Wayne - Last Filed: 03/29/19 18:38> - General Chief Complaint: Shortness of Breath Stated Complaint: SOB Time Seen by Provider: 03/29/19 11:22 - History of Present Illness Initial Comments: 78-year-old male with history of COPD on oxygen 3 L at home, Previous CABG. Presented for chief complaint of shortness of breath. Patient states he did travel to [place] at the end of January. States that she's been home he's been weaker and more short of breath. He states recently in the past week he ran out of his portable oxygen and has not been using it worsening shortness of breath patient denies any hemoptysis lower lip swelling recent surgeries history of cancer he denies any chest pain or pressure. He has a fever states he has a chronic cough. Patient is currently not every day smoker. Patient states he quit yesterday. Remaining ROS (-) Upon arrival patient appears well, no signs of acute distress. Hypoxic on room air. (Yanet Sauceda) - Related Data Home Medications Medication Instructions Recorded Confirmed Atorvastatin [Lipitor] 20 mg PO HS 05/09/17 02/20/19 Isosorbide Mononitrate ER [Imdur] 30 mg PO DAILY 05/09/17 02/20/19 Levothyroxine Sodium [Synthroid] 112 mcg PO DAILY 05/09/17 02/20/19 Prasugrel [Effient] 10 mg PO DAILY 05/09/17 02/20/19 Sertraline [Zoloft] 50 mg PO DAILY 05/09/17 02/20/19 Aspirin 325 mg PO DAILY 02/20/19 02/20/19 Fluticasone/Salmeterol [Advair 1 puff INHALATION RT-BID 02/20/19 02/20/19 500-50 Diskus] Tiotropium [place] [Spiriva] 1 cap INHALATION RT-DAILY 02/20/19 02/20/19 Tolterodine ER [Detrol LA] 2 mg PO DAILY 02/20/19 02/20/19 Previous Rx's Medication Instructions Recorded Cephalexin [Keflex] 500 mg PO Q12HR 10 Days cap 02/20/19 Allergies Allergy/AdvReac Type Severity Reaction Status Date / Time iodine Allergy Rash/Hives Verified 03/29/19 11:22 Review of Systems ROS Other: All systems not noted in ROS Statement are negative. <Yanet Sauceda - Last Filed: 03/29/19 17:35> ROS Other: All systems not noted in ROS Statement are negative. <William Wayne - Last Filed: 03/29/19 18:38> ROS Statement: Those systems with pertinent positive or pertinent negative responses have been documented in the HPI. Past Medical History Past Medical History: Coronary Artery Disease (CAD), Cancer, Chest Pain / Angina, COPD, GERD/Reflux, Hyperlipidemia, Myocardial Infarction ([place]), Osteoarthritis (OA), Pneumonia, Prostate Disorder, Sleep Apnea/CPAP/BIPAP, Thyroid Disorder Additional Past Medical History / Comment(s): BACK PAIN,herniated disc, pinched nerves,emphysema, hemorrhoids,skin cancer, walt cataracts-had sx, thin skin prone to bruises/skin tears. Last Myocardial Infarction Date:: unk History of Any Multi-Drug Resistant Organisms: None Reported Past Surgical History: Coronary Bypass/CABG Additional Past Surgical History / Comment(s): cataracts, 3 vessel cabg, past peg tube since removed." lizbet in penis", hemorrhoids, ?egd. pmh : lap heller myotomy Past Anesthesia/Blood Transfusion Reactions: No Reported Reaction Past Psychological History: No Psychological Hx Reported Smoking Status: Current every day smoker Past Alcohol Use History: Rare Past Drug Use History: None Reported - Past Family History Mother Family Medical History: Cancer Additional Family Medical History / Comment(s): breast cancer Sister(s) Family Medical History: Cancer Additional Family Medical History / Comment(s): colon cancer Father History Unknown: Yes Additional Family Medical History / Comment(s): pt's father when pt was 3 years old. <Yanet Sauceda - Last Filed: 03/29/19 17:35> General Exam Limitations: physical limitation <Yanet Sauceda - Last Filed: 03/29/19 17:35> - General Exam Comments Initial Comments: General: The patient is awake and alert, in no distress, and does not appear acutely ill. Eye: Pupils are equal, round and reactive to light, extra-ocular movements are intact. No nystagmus. There is normal conjunctiva bilaterally. No signs of icterus. Ears, nose, mouth and throat: There are moist mucous membranes and no oral lesions. Neck: The neck is supple, there is no tenderness or JVD. Cardiovascular: There is a regular rate and rhythm. No murmur, rub or gallop is appreciated. Respiratory: Extremities on examination.Respirations are non-labored, breath sounds are equal. No stridor, rales, or rhonchi. Gastrointestinal: [Soft, non-distended, non-tender abdomen without masses or organomegaly noted. There is no rebound or guarding present. No CVA tenderness. Bowel sounds are unremarkable.] Musculoskeletal: Normal ROM, no tenderness. Strength 5/5. Sensation intact. Pulses equal bilaterally 2+. Neurological: A&O x 3. CN II-XII intact, There are no obvious motor or sensory deficits. Coordination appears grossly intact. Speech is normal. Skin: Skin is warm and dry and no rashes or lesions are noted. No LE edema. Psychiatric: Cooperative, appropriate mood & affect, normal judgment. (Yanet Sauceda) Course <William Wayne - Last Filed: 03/29/19 18:38> Vital Signs 03/29/19 03/29/19 03/29/19 11:17 12:00 12:07 Temperature 98.9 F Pulse Rate 75 75 68 Respiratory 22 24 Rate Blood Pressure 111/64 110/77 O2 Sat by Pulse 96 93 L Oximetry 03/29/19 03/29/19 03/29/19 12:12 13:00 14:00 Temperature Pulse Rate 67 71 75 Respiratory 24 22 Rate Blood Pressure 110/65 131/85 O2 Sat by Pulse 94 L 96 Oximetry 03/29/19 03/29/19 03/29/19 14:33 14:38 15:00 Temperature Pulse Rate 75 76 70 Respiratory 24 Rate Blood Pressure 118/74 O2 Sat by Pulse 99 Oximetry 03/29/19 16:06 Temperature Pulse Rate 97 Respiratory 18 Rate Blood Pressure 127/76 O2 Sat by Pulse 97 Oximetry - Reevaluation(s) Reevaluation #1: 03/29/19 18:36 PA supervision: I proceeded [id number] evaluation the patient and did discuss the findings with him. Patient still demonstrates evidence of difficulty breathing with COPD markedly diminished breath sounds in the right side. He states he is supposed be on home oxygen but does not use it and does not have air conditioning at home right now. The ambient temperature outside at the time of this note and evaluation was about 90 with markedly elevated humidity. After discussion the patient he will be admitted for treatment of COPD exacerbation. I did discuss the case with Dr. Oliveira. 03/29/19 18:37 CT negative for PE. (William Wayne) Medical Decision Making - Lab Data Result diagrams: 03/29/19 11:25 03/29/19 11:25 <Yanet Sauceda - Last Filed: 03/29/19 17:35> - Lab Data Result diagrams: 03/29/19 11:25 03/29/19 11:25 <William Wayne - Last Filed: 03/29/19 18:38> - Medical Decision Making -year-old male presenting today for chief complaint of shortness of breath. Ongoing for a month worsening for the past week since he ran out of his portable oxygen On examination no lower extremity swelling. Patient did return 2 months prior from a long vacation with an extended air plane ride. Patient is on a blood thinner. Patient denies any chest pain. D-dimer elevated CTA negative. Chest x-ray no acute process. BMP within acceptable limits. Troponin negative. EKG no findings consistent with acute coronary syndrome. Given patient not having access to portable oxygen, hypoxia. Advanced age after evaluation by Dr. Wayne he recommended admission. Patient is agreeable admission at this time. Dr. Wayne placed admitting orders and spoke with attending. (Yanet Sauceda) - Lab Data Lab Results 03/29/19 03/29/19 03/29/19 Range/Units 11:25 11:25 11:25 WBC 10.9 H (3.8-10.6) k/uL RBC 4.46 (4.30-5.90) m/uL Hgb 12.0 L (13.0-17.5) gm/dL Hct 36.7 L (39.0-53.0) % MCV 82.3 (80.0-100.0) fL MCH 27.0 (25.0-35.0) pg MCHC 32.8 (31.0-37.0) g/dL RDW 15.3 (11.5-15.5) % Plt Count 155 (150-450) k/uL Neutrophils % 77 % Lymphocytes % 17 % Monocytes % 4 % Eosinophils % 1 % Basophils % 0 % Neutrophils # 8.4 H (1.3-7.7) k/uL Lymphocytes # 1.8 (1.0-4.8) k/uL Monocytes # 0.4 (0-1.0) k/uL Eosinophils # 0.1 (0-0.7) k/uL Basophils # 0.1 (0-0.2) k/uL PT (9.0-12.0) sec INR (<1.2) APTT (22.0-30.0) sec D-Dimer (<0.60) mg/L FEU Sodium 140 (137-145) mmol/L Potassium 3.8 (3.5-5.1) mmol/L Chloride 108 H (98-107) mmol/L Carbon Dioxide 26 (22-30) mmol/L Anion Gap 6 mmol/L BUN 16 (9-20) mg/dL Creatinine 0.86 (0.66-1.25) mg/dL Est GFR (CKD-EPI)AfAm >90 (>60 ml/min/1.73 sqM) Est GFR (CKD-EPI)NonAf 82 (>60 ml/min/1.73 sqM) Glucose 107 H (74-99) mg/dL Calcium 8.9 (8.4-10.2) mg/dL Magnesium 1.8 (1.6-2.3) mg/dL Total Bilirubin 0.5 (0.2-1.3) mg/dL AST 13 L (17-59) U/L ALT 8 L (21-72) U/L Alkaline Phosphatase 112 (38-126) U/L Troponin I (0.000-0.034) ng/mL NT-Pro-B Natriuret Pep 476 pg/mL Total Protein 6.0 L (6.3-8.2) g/dL Albumin 3.3 L (3.5-5.0) g/dL 03/29/19 03/29/19 03/29/19 Range/Units 11:25 11:25 11:25 WBC (3.8-10.6) k/uL RBC (4.30-5.90) m/uL Hgb (13.0-17.5) gm/dL Hct (39.0-53.0) % MCV (80.0-100.0) fL MCH (25.0-35.0) pg MCHC (31.0-37.0) g/dL RDW (11.5-15.5) % Plt Count (150-450) k/uL Neutrophils % % Lymphocytes % % Monocytes % % Eosinophils % % Basophils % % Neutrophils # (1.3-7.7) k/uL Lymphocytes # (1.0-4.8) k/uL Monocytes # (0-1.0) k/uL Eosinophils # (0-0.7) k/uL Basophils # (0-0.2) k/uL PT 10.6 (9.0-12.0) sec INR 1.0 (<1.2) APTT 24.8 (22.0-30.0) sec D-Dimer 8.21 H (<0.60) mg/L FEU Sodium (137-145) mmol/L Potassium (3.5-5.1) mmol/L Chloride (98-107) mmol/L Carbon Dioxide (22-30) mmol/L Anion Gap mmol/L BUN (9-20) mg/dL Creatinine (0.66-1.25) mg/dL Est GFR (CKD-EPI)AfAm (>60 ml/min/1.73 sqM) Est GFR (CKD-EPI)NonAf (>60 ml/min/1.73 sqM) Glucose (74-99) mg/dL Calcium (8.4-10.2) mg/dL Magnesium (1.6-2.3) mg/dL Total Bilirubin (0.2-1.3) mg/dL AST (17-59) U/L ALT (21-72) U/L Alkaline Phosphatase (38-126) U/L Troponin I <0.012 (0.000-0.034) ng/mL NT-Pro-B Natriuret Pep pg/mL Total Protein (6.3-8.2) g/dL Albumin (3.5-5.0) g/dL - EKG Data EKG Comments: Ventricular rate 77 bpm, NJ interval 164 ms, QRS duration 82 ms, QT/QTC 396/448. Rhythm is sinus with a marked sinus arrhythmia. Low voltage QRS noted. History of COPD. T wave abnormality noted V2 through V5 and inversion. No ST elevation or depression. (Yanet Sauceda) Disposition <Yanet Sauceda - Last Filed: 03/29/19 17:35> <William Wayne - Last Filed: 03/29/19 18:38> Clinical Impression: Acute exacerbation of chronic obstructive airways disease, Adult respiratory distress syndrome Disposition: ADMITTED IP TO THIS HOSP Condition: Fair Referrals: Jess Singleton DO [Primary Care Provider] - 1-2 days
[2019-03-29] MEDS ORDERED: diphenhydrAMINE 50 MG/ML 1 ML VIAL IVP STA (15:47)
[2019-03-29] MEDS ORDERED: FAMOTIDINE 20 MG/2 ML VIAL IV STA (15:47)
--- NOTE | 2019-03-29 16:58 | CT ---
EXAMINATION TYPE: CT angio chest DATE OF EXAM: 03/29/2019 4:38 PM COMPARISON: 05/10/2018 HISTORY: elevated d-dimer CT DLP: 483.7 mGycm Automated exposure control for dose reduction was used. CONTRAST: CTA scan of the thorax is performed with IV Contrast, patient injected with 100 mL of Isovue 370, pul monary embolism protocol. . There are 3-D post processed images. FINDINGS: There is pulmonary emphysema. There is coarse interstitial infiltrate and some pleural reticular dens ity in both lungs. There is no pleural effusion. There is minimal pleural thickening at the right pos terior lung base. There is no pericardial effusion. Thoracic aorta is atheromatous. There is mild 4 c m aneurysm ascending aorta. There is no evidence of dissection. There is normal contrast opacification of the pulmonary arteries. I see no filling defects. There is no mediastinal adenopathy. There are no hilar masses. There is spondylotic changes in the thoracic spine. There is no significant loss of height. There is 5% wedging of T4 vertebra. There is also 5% wedging of T8 vertebra. There is a minimal subluxation at T9-T10 of 4 mm. IMPRESSION: NO EVIDENCE OF PULMONARY EMBOLISM. ATHEROSCLEROTIC VASCULAR DISEASE. 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 HEART AND LUNGS APPEAR NOT SIGNIFICANTLY DIFFERENT KEZIA N OLD CT SCAN OF 05/10/2018. STABLE THORACIC SPINE COMPARED TO OLD EXAM.
[2019-03-29] MEDS ORDERED: SODIUM CHLORIDE 0.9% 1,000 ML IV SCH (18:45)
[2019-03-29] MEDS ORDERED: IPRATROPIUM-ALBUTEROL 3 ML NEB INHALATION SCH ×2 (20:00→20:15)
[2019-03-29] MEDS ORDERED: ATORVASTATIN 20 MG TAB PO SCH (21:00)
[2019-03-29] MEDS: SYMBICORT 160-4.5 MCG INHALER INHALATION SCH (21:06)
[2019-03-29] MEDS ORDERED: IPRATROPIUM-ALBUTEROL 3 ML NEB INHALATION PRN (21:28)
[2019-03-29] MEDS: CEPHALEXIN 500 MG CAP PO SCH (21:49)
[2019-03-29] MEDS: methylPREDNISolone SOD SUCCI 125 MG/2 ML VIAL IV SCH (23:33)
[2019-03-30] MEDS: methylPREDNISolone SOD SUCCI 125 MG/2 ML VIAL IV SCH ×2 (05:11→08:23)
[2019-03-30] MEDS ORDERED: LEVOTHYROXINE 112 MCG TAB PO SCH (06:30)
[2019-03-30 06:42] VITALS: BP 114/73
[2019-03-30 07:25] LABS: Glucose,Whole Blood 154 mg/dL (75-99)
[2019-03-30] MEDS: IPRATROPIUM-ALBUTEROL 3 ML NEB INHALATION SCH ×3 (07:46→15:40)
[2019-03-30] MEDS: SYMBICORT 160-4.5 MCG INHALER INHALATION SCH (07:46)
[2019-03-30] MEDS ORDERED: IPRATROPIUM 0.5 MG/2.5 ML NEBU INHALATION SCH (08:00)
[2019-03-30] MEDS: CEPHALEXIN 500 MG CAP PO SCH (08:22)
[2019-03-30] MEDS: INSULIN ASPART (NovoLOG) 100 UNIT/ML VIAL SQ SCH ×2 (08:33→12:25)
[2019-03-30] MEDS ORDERED: SERTRALINE 50 MG TAB PO SCH (09:00)
[2019-03-30] MEDS ORDERED: PRASUGREL 10 MG TAB PO SCH (09:00)
[2019-03-30] MEDS ORDERED: ASPIRIN 325 MG TAB PO SCH (09:00)
[2019-03-30] MEDS ORDERED: OXYBUTYNIN XL 5 MG TAB.ER.24 PO SCH (09:00)
[2019-03-30] MEDS ORDERED: ISOSORBIDE MONONITRATE ER 30 MG TAB.ER.24H PO SCH (09:00)
[2019-03-30 11:55] LABS: Glucose,Whole Blood 223 mg/dL (75-99)
[2019-03-30 14:30] VITALS: RESP 18; TEMP 97.3
--- NOTE | 2019-03-30 15:18 | P.HPIM ---
History of Present Illness H&P Date: 03/30/19 Chief Complaint: Shortness of breath Mr. Pedersen is a 78-year-old gentleman with a past medical history of coronary disease, COPD, hypertension, hyperlipidemia, prostate disorder, thyroid disorder, coming into the hospital with a chief complaint of difficulty in breathing. Patient states that he has been having more difficulty in breathing for the past couple of days. But on the day of admission when he was lighting a cigarette he became more short of breath and decided to come to the hospital. At baseline patient is on 3 L of home oxygen for his end-stage COPD. Patient denies having any chest pain. As the patient had a recent travel to [place] at the end of January, and had elevated d-dimer in the ED he got a CT for PE in the ER that was negative. Patient is currently admitted for COPD exacerbation he has been started on IV Solu-Medrol and breathing treatments along with antibiotic therapy. Today the patient is lying comfortably in the bed he states that he has been feeling good. He is mentions that his back to his baseline. As per the nursing staff report no events reported overnight. On review of systems patient denies having any chest pain, palpitations, orthopnea or PND. No complaints of abdominal pain nausea vomiting or diarrhea. No dysuria or hematuria. No dizziness or loss of consciousness. No weakness of his extremities .No slurring of speech. No neck rigidity. No lower extremity swelling. Review of Systems REVIEW OF SYSTEMS: PSYCH: Normal psychiatric exam NEURO:No c/o weakness of the extremties, No facial droop, No speech abnormalities. VASCULAR: Peripheral nervous system within the normal limits no edema HEMATOLOGIC: No history of easy bleeding and bruising . No recent infections . RESPIRATORY: As per HPI IMMUNE: No infections INTEGUMENT: no rashes OPHTHALMOLOGIC: No blurry vision and no eye discharge : No dysuria or hematuria CARDIAC: No chest pain , shortness of breath , paroxysmal nocturnal dyspnea MUSCULOSKELETAL : No Aches or pains in the joints or muscles. GI: No abdominal pain, Nausea or vomiting. No constipation or diarrhea. Past Medical History Past Medical History: Coronary Artery Disease (CAD), Cancer, Chest Pain / Angina, COPD, GERD/Reflux, Hyperlipidemia, Myocardial Infarction (ND), Osteoarthritis (OA), Pneumonia, Prostate Disorder, Sleep Apnea/CPAP/BIPAP, Thyroid Disorder Additional Past Medical History / Comment(s): BACK PAIN,herniated disc, pinched nerves,emphysema, hemorrhoids,skin cancer, walt cataracts-had sx, thin skin prone to bruises/skin tears. Last Myocardial Infarction Date:: unk History of Any Multi-Drug Resistant Organisms: None Reported Past Surgical History: Coronary Bypass/CABG Additional Past Surgical History / Comment(s): cataracts, 3 vessel cabg, past peg tube since removed." lizbet in penis", hemorrhoids, ?egd. pmh : lap heller myotomy Past Anesthesia/Blood Transfusion Reactions: No Reported Reaction Past Psychological History: No Psychological Hx Reported Additional Psychological History / Comment(s): pt lives with his [address] in apt built onto his sons home. has 3 steps to enter it. pt uses [employer] when up. no outside services. no past TRi[employer] service. retires from the [employer] at [employer]. Smoking Status: Current every day smoker Past Alcohol Use History: Rare Additional Past Alcohol Use History / Comment(s): started smoking at age 12- has quit here and there. stated if busy outside or on project will smoke 1 ppd, if just sitting at home smokes 2 ppd. in past drank heavy-quit 36 years ago. Past Drug Use History: None Reported - Past Family History Mother Family Medical History: Cancer Additional Family Medical History / Comment(s): breast cancer Sister(s) Family Medical History: Cancer Additional Family Medical History / Comment(s): colon cancer Father History Unknown: Yes Additional Family Medical History / Comment(s): pt's father when pt was 3 years old. Medications and Allergies Home Medications Medication Instructions Recorded Confirmed Type Atorvastatin [Lipitor] 20 mg PO HS 05/09/17 03/29/19 History Isosorbide Mononitrate ER [Imdur] 30 mg PO DAILY 05/09/17 03/29/19 History Levothyroxine Sodium [Synthroid] 112 mcg PO DAILY 05/09/17 03/29/19 History Prasugrel [Effient] 10 mg PO DAILY 05/09/17 03/29/19 History Sertraline [Zoloft] 50 mg PO DAILY 05/09/17 03/29/19 History Aspirin 325 mg PO DAILY 02/20/19 03/29/19 History Tolterodine ER [Detrol LA] 2 mg PO DAILY 02/20/19 03/29/19 History Ipratropium-Albuterol Nebulize 3 ml INHALATION RT-TID 03/29/19 03/29/19 History [Duoneb 0.5 mg-3 mg/3 ml Soln] Montelukast [Singulair] 10 mg PO DAILY 03/29/19 03/29/19 History Budesonide-Formot 160-4.5 Mcg 2 puff INHALATION BID 30 Days #1 03/30/19 Rx [Symbicort 160-4.5 Mcg Inhaler] inhaler Allergies Allergy/AdvReac Type Severity Reaction Status Date / Time iodine Allergy Rash/Hives Verified 03/29/19 19:05 Physical Exam Vitals: Vital Signs Temp Pulse Pulse Resp BP BP Pulse Ox 03/30/19 14:29 97.3 F L 76 18 95 03/30/19 11:12 74 03/30/19 11:02 72 03/30/19 05:00 97.9 F 95 20 114/73 100 03/29/19 21:50 97.9 F 82 16 104/74 90 L 03/29/19 20:00 98.4 F 78 24 128/75 96 03/29/19 19:00 77 22 119/77 96 03/29/19 18:00 79 22 117/74 96 03/29/19 17:00 71 24 116/70 95 03/29/19 16:06 97 18 127/76 97 03/29/19 15:00 70 24 118/74 99 03/29/19 14:38 76 Intake and Output 03/29/19 03/30/19 03/30/19 22:59 06:59 14:59 Intake Total 250 Output Total 250 300 Balance -250 -50 Intake: Oral 250 Output: Urine 250 300 Other: Voiding Method Incontinent # Voids 1 GEN. APPEARANCE: alert, in no apparent distress HEAD EXAM: atraumatic, normocephalic, normal inspection EYE EXAM: normal appearance, PERRL, EOMI. Absent: scleral icterus, conjunctival injection, periorbital swelling ENT EXAM: normal exam, mucous membranes moist NECK EXAM: normal inspection. Absent: tenderness, meningismus, full ROM, lymphadenopathy RESPIRATORY EXAM: Decreased bilateral breath sounds. No wheezing or crackles. CARDIOVASCULAR EXAM: S1-S2 heard. GI/ABDOMINAL EXAM: soft, normal bowel sounds. Absent: distended, tenderness, guarding, rebound, rigid EXTREMITIES EXAM: normal inspection, full ROM, normal capillary refill. Absent: tenderness, pedal edema, joint swelling, calf tenderness NEUROLOGICAL EXAM: alert, oriented X3, no focal neurological deficits PSYCHIATRIC EXAM: normal affect, normal mood SKIN EXAM: Skin is very thin and frail Results CBC & Chem 7: 03/29/19 11:25 03/29/19 11:25 Labs: Abnormal Lab Results - Last 24 Hours (Table) 03/29/19 03/30/19 03/30/19 Range/Units 11:25 07:17 11:30 D-Dimer 8.21 H (<0.60) mg/L FEU POC Glucose (mg/dL) 154 H 223 H (75-99) mg/dL Comments: CTA of the chest negative for PE Thrombosis Risk Factor Assmnt - Choose All That Apply Any of the Below Risk Factors Present?: Yes Each Factor Represents 1 point: Abnormal pulmonary function (COPD) Other Risk Factors: Yes Each Risk Factor Represents 2 Points: Age 61-74 years Thrombosis Risk Factor Assessment Total Risk Factor Score: 3 Thrombosis Risk Factor Assessment Level: Moderate Risk Assessment and Plan Assessment: ASSESSMENT Acute hypoxic respiratory failure due to COPD exacerbation Acute COPD exacerbation Coronary artery disease Current smoker GERD Hyperlipidemia History of ND Multiple joint osteoarthritis Obstructive sleep apnea Thyroid disorder History of skin cancer History of skin tears PLAN: Patient has received breathing treatments and few doses of Solu-Medrol. He he states his breathing is back to his baseline. His home medications have been resumed and his doing quite well. He requests that he would want to go home. The patient is being discharged home in a stable condition to have a follow-up with his primary care physician in 2-3 days. Time with Patient: Greater than 30
--- NOTE | 2019-03-30 15:24 | P.DS ---
Providers Date of admission: 03/29/19 18:38 Expected date of discharge: 03/30/19 Attending physician: Annette Oliveira Primary care physician: Jess Singleton [facility] Course: Mr. Pedersen is a 78-year-old gentleman with a past medical history of coronary disease, COPD, hypertension, hyperlipidemia, prostate disorder, thyroid disorder, coming into the hospital with a chief complaint of difficulty in breathing. Patient states that he has been having more difficulty in breathing for the past couple of days. But on the day of admission when he was lighting a cigarette he became more short of breath and decided to come to the hospital. A t baseline patient is on 3 L of home oxygen for his end-stage COPD. Patient denies having any chest pain. As the patient had a recent travel to [place] at the end of January, and had elevated d-dimer in the ED he got a CT for PE in the ER that was negative. Patient is currently admitted for COPD exacerbation he has been started on IV Solu-Medrol and breathing treatments along with antibiotic therapy. Today the patient is lying comfortably in the bed he states that he has been feeling good. He is mentions that his back to his baseline. As per the nursing staff report no events reported overnight. Allergies Allergy/AdvReac Type Severity Reaction Status Date / Time iodine Allergy Rash/Hives Verified 03/29/19 19:05 Physical Exam Vitals: Vital Signs Temp Pulse Pulse Resp BP BP Pulse Ox 03/30/19 14:29 97.3 F L 76 18 95 03/30/19 11:12 74 03/30/19 11:02 72 03/30/19 05:00 97.9 F 95 20 114/73 100 03/29/19 21:50 97.9 F 82 16 104/74 90 L 03/29/19 20:00 98.4 F 78 24 128/75 96 03/29/19 19:00 77 22 119/77 96 03/29/19 18:00 79 22 117/74 96 03/29/19 17:00 71 24 116/70 95 03/29/19 16:06 97 18 127/76 97 03/29/19 15:00 70 24 118/74 99 03/29/19 14:38 76 Intake and Output 03/29/19 03/30/19 03/30/19 22:59 06:59 14:59 Intake Total 250 Output Total 250 300 Balance -250 -50 Intake: Oral 250 Output: Urine 250 300 Other: Voiding Method Incontinent # Voids 1 GEN. APPEARANCE: alert, in no apparent distress HEAD EXAM: atraumatic, normocephalic, normal inspection EYE EXAM: normal appearance, PERRL, EOMI. Absent: scleral icterus, conjunctival injection, periorbital swelling ENT EXAM: normal exam, mucous membranes moist NECK EXAM: normal inspection. Absent: tenderness, meningismus, full ROM, lymphadenopathy RESPIRATORY EXAM: Decreased bilateral breath sounds. No wheezing or crackles. CARDIOVASCULAR EXAM: S1-S2 heard. GI/ABDOMINAL EXAM: soft, normal bowel sounds. Absent: distended, tenderness, guarding, rebound, rigid EXTREMITIES EXAM: normal inspection, full ROM, normal capillary refill. Absent: tenderness, pedal edema, joint swelling, calf tenderness NEUROLOGICAL EXAM: alert, oriented X3, no focal neurological deficits PSYCHIATRIC EXAM: normal affect, normal mood SKIN EXAM: Skin is very thin and frail Results CBC & Chem 7: 03/29/19 11:25 03/29/19 11:25 Labs: Abnormal Lab Results - Last 24 Hours (Table) 03/29/19 03/30/19 03/30/19 Range/Units 11:25 07:17 11:30 D-Dimer 8.21 H (<0.60) mg/L FEU POC Glucose (mg/dL) 154 H 223 H (75-99) mg/dL Comments: CTA of the chest negative for PE Thrombosis Risk Factor Assmnt - Choose All That Apply Any of the Below Risk Factors Present?: Yes Each Factor Represents 1 point: Abnormal pulmonary function (COPD) Other Risk Factors: Yes Each Risk Factor Represents 2 Points: Age 61-74 years Thrombosis Risk Factor Assessment Total Risk Factor Score: 3 Thrombosis Risk Factor Assessment Level: Moderate Risk DISCHARGE DIAGNOSIS Acute hypoxic respiratory failure due to COPD exacerbation Acute COPD exacerbation Coronary artery disease Current smoker GERD Hyperlipidemia History of [place] Multiple joint osteoarthritis Obstructive sleep apnea Thyroid disorder History of skin cancer History of skin tears PLAN: Patient is back to his baseline breathing status. Patient is on albuterol and Singulair but does not take a maintenance inhaler so he has been started on Symbicort which is a new medication. The rest of his medications are the same. He is advised to follow-up with his primary care physician in 3-4 days. Patient Condition at Discharge: Fair Plan - Discharge Summary New Discharge Prescriptions: New Budesonide-Formot 160-4.5 Mcg [Symbicort 160-4.5 Mcg Inhaler] 2 puff INHALATION BID 30 Days #1 inhaler Continue Prasugrel [Effient] 10 mg PO DAILY Sertraline [Zoloft] 50 mg PO DAILY Levothyroxine Sodium [Synthroid] 112 mcg PO DAILY Isosorbide Mononitrate ER [Imdur] 30 mg PO DAILY Atorvastatin [Lipitor] 20 mg PO HS Tolterodine ER [Detrol LA] 2 mg PO DAILY Aspirin 325 mg PO DAILY Montelukast [Singulair] 10 mg PO DAILY Ipratropium-Albuterol Nebulize [Duoneb 0.5 mg-3 mg/3 ml Soln] 3 ml INHALATION RT-TID Discharge Medication List Atorvastatin [Lipitor] 20 mg PO HS 05/09/17 [History] Isosorbide Mononitrate ER [Imdur] 30 mg PO DAILY 05/09/17 [History] Levothyroxine Sodium [Synthroid] 112 mcg PO DAILY 05/09/17 [History] Prasugrel [Effient] 10 mg PO DAILY 05/09/17 [History] Sertraline [Zoloft] 50 mg PO DAILY 05/09/17 [History] Aspirin 325 mg PO DAILY 02/20/19 [History] Tolterodine ER [Detrol LA] 2 mg PO DAILY 02/20/19 [History] Ipratropium-Albuterol Nebulize [Duoneb 0.5 mg-3 mg/3 ml Soln] 3 ml INHALATION RT-TID 03/29/19 [History] Montelukast [Singulair] 10 mg PO DAILY 03/29/19 [History] Budesonide-Formot 160-4.5 Mcg [Symbicort 160-4.5 Mcg Inhaler] 2 puff INHALATION BID 30 Days #1 inhaler 03/30/19 [Rx] Follow up Appointment(s)/Referral(s): Jess Singleton DO [Primary Care Provider] - 1-2 days
[2019-03-30 15:51] VITALS: PULSE 78
[2019-03-30] MEDS ORDERED: BISACODYL 5 MG TABLET.DR PO SCH (21:00)
== END 2019-03-30 19:00 | disposition home or self-care (01) | DRG 190 ==
LOC: EC 11:06 → 4MS4W 18:38
PROVIDERS: ADMIT Internal Medicine; ATTEND Internal Medicine
DX: J43.9 Emphysema, unspecified (principal); J96.01 Acute respiratory failure with hypoxia; E07.9 Disorder of thyroid, unspecified; E78.5 Hyperlipidemia, unspecified; F17.210 Nicotine dependence, cigarettes, uncomplicated; G47.33 Obstructive sleep apnea (adult) (pediatric); I10 Essential (primary) hypertension; I25.10 Atherosclerotic heart disease of native coronary artery without angina pectoris; I25.2 Old myocardial infarction; K21.9 Gastro-esophageal reflux disease without esophagitis; M19.90 Unspecified osteoarthritis, unspecified site; N42.9 Disorder of prostate, unspecified; R32 Unspecified urinary incontinence; Z79.02 Long term (current) use of antithrombotics/antiplatelets; Z79.51 Long term (current) use of inhaled steroids; Z79.82 Long term (current) use of aspirin; Z79.890 Hormone replacement therapy; Z79.899 Other long term (current) drug therapy; Z99.81 Dependence on supplemental oxygen; Z95.1 Presence of aortocoronary bypass graft; Z91.041 Radiographic dye allergy status; Z85.828 Personal history of other malignant neoplasm of skin; Z87.01 Personal history of pneumonia (recurrent); Z98.42 Cataract extraction status, left eye; Z98.41 Cataract extraction status, right eye; Z96.1 Presence of intraocular lens; Z80.0 Family history of malignant neoplasm of digestive organs; Z80.3 Family history of malignant neoplasm of breast
CPT/HCPCS: 36415; 71046; 71275; 80053; 83735; 83880; 84484; 85025; 85379; 85610; 85730; 93005; 94640; 96374; 96375; 99285

== ENCOUNTER 2019-04-08 15:19 | Inpatient (IN) | payer MEDICARE ==
[2019-04-08] MEDS ORDERED: NOREPINEPHRINE 4 MG in SODIUM CHLORIDE 0.9% 250 ML IV ONE (15:30)
--- NOTE | 2019-04-08 15:40 | ED ---
General Adult HPI - General Chief complaint: Recheck/Abnormal Lab/Rx Stated complaint: cardiac Time Seen by Provider: 04/08/19 15:32 Source: patient, EMS Mode of arrival: EMS Limitations: physical limitation - History of Present Illness Initial comments: 78-year-old male presenting from an outpatient surgery center with the chief complaint of hypotension and possible cardiac arrest. Per report the patient was there receiving a cystoscopy for bladder cancer. He was given propofol and became hypotensive. Per the report he was possibly pulseless in the OR. No CPR was done, but 2 rounds of epinephrine were given with improvement of the hypotension and mental status. The patient was then started on a dopamine infusion. On presentation the patient currently only has complaints of mild suprapubic tenderness. Patient has a history of a CABG, hyperthyroidism, hypercholesterolemia, CAD, and COPD. - Related Data Home Medications Medication Instructions Recorded Confirmed Atorvastatin [Lipitor] 20 mg PO HS 05/09/17 04/08/19 Isosorbide Mononitrate ER [Imdur] 30 mg PO DAILY 05/09/17 04/08/19 Levothyroxine Sodium [Synthroid] 112 mcg PO DAILY 05/09/17 04/08/19 Prasugrel [Effient] 10 mg PO DAILY 05/09/17 04/08/19 Sertraline [Zoloft] 50 mg PO DAILY 05/09/17 04/08/19 Aspirin 325 mg PO DAILY 02/20/19 04/08/19 Tolterodine ER [Detrol LA] 2 mg PO DAILY 02/20/19 04/08/19 Ipratropium-Albuterol Nebulize 3 ml INHALATION RT-TID 03/29/19 04/08/19 [Duoneb 0.5 mg-3 mg/3 ml Soln] Montelukast [Singulair] 10 mg PO DAILY 03/29/19 04/08/19 Budesonide-Formot 160-4.5 Mcg 2 puff INHALATION RT-BID 04/08/19 04/08/19 [Symbicort 160-4.5 Mcg Inhaler] Cranberry Fruit Concentrate [Azo 250 mg PO DAILY 04/08/19 04/08/19 Cranberry] Allergies Allergy/AdvReac Type Severity Reaction Status Date / Time iodine Allergy Rash/Hives Verified 04/08/19 17:08 Review of Systems ROS Statement: Those systems with pertinent positive or pertinent negative responses have been documented in the HPI. Review of Systems Constitutional: Denies fever, chills Eyes: Denies change in vision, Denies pain Ears, nose, mouth, throat: Denies headaches, Denies sore throat Cardiovascular: Denies chest pain. Denies palpitations Respiratory: Denies shortness of breath, Denies cough Gastrointestinal: Positive abdominal pain. Denies nausea, vomiting, diarrhea. Genitourinary: Denies hematuria, Denies infections Musculoskeletal: Denies pain, Denies swelling Integumentary: Denies rash Neurological: Denies headache, focal weakness, focal numbness Psychiatric: Denies anxiety, Denies depression Hematologic/Lymphatic: Denies easy bleeding or bruising ROS Other: All systems not noted in ROS Statement are negative. Past Medical History Past Medical History: Coronary Artery Disease (CAD), Cancer, Chest Pain / Angina, COPD, GERD/Reflux, Hyperlipidemia, Myocardial Infarction (LA), Osteoarthritis (OA), Pneumonia, Prostate Disorder, Sleep Apnea/CPAP/BIPAP, Th yroid Disorder Additional Past Medical History / Comment(s): BACK PAIN,herniated disc, pinched nerves,emphysema, hemorrhoids,skin cancer, walt cataracts-had sx, thin skin prone to bruises/skin tears. Last Myocardial Infarction Date:: unk History of Any Multi-Drug Resistant Organisms: None Reported Past Surgical History: Coronary Bypass/CABG Additional Past Surgical History / Comment(s): cataracts, 3 vessel cabg, past peg tube since removed." lizbet in penis", hemorrhoids, ?egd. pmh : lap heller myotomy Past Anesthesia/Blood Transfusion Reactions: No Reported Reaction Past Psychological History: No Psychological Hx Reported Smoking Status: Current every day smoker Past Alcohol Use History: Rare Past Drug Use History: None Reported - Past Family History Mother Family Medical History: Cancer Additional Family Medical History / Comment(s): breast cancer Sister(s) Family Medical History: Cancer Additional Family Medical History / Comment(s): colon cancer Father History Unknown: Yes Additional Family Medical History / Comment(s): pt's father when pt was 3 years old. General Exam - General Exam Comments Initial Comments: General: Awake, alert, No acute Distress HENT: Normocephalic. Atraumatic. Left IJ single-lumen central line Eyes: PERRL. EOMI. No scleral icterus. No injected conjunctiva Neck: Full ROM Chest/Lungs: Clear to auscultation bilaterally. No wheezing, rhonchi, or rales Cardiac: Regular rate, rhythm. No murmurs or rubs Abdomen/GI: Soft, nontender, nondistended. No rebound, guarding, or rigidity. Musculoskeletal: Full ROM Skin: Warm, dry, intact Neurologic: A/Ox3, no weakness, no sensory deficit, no abnormal gait, no coordination deficit Limitations: physical limitation Course Vital Signs 04/08/19 04/08/19 04/08/19 15:20 16:03 16:45 Temperature 97.5 F L Pulse Rate 98 102 H Respiratory 18 18 Rate Blood Pressure 86/42 105/75 104/74 O2 Sat by Pulse 96 99 Oximetry 04/08/19 04/08/19 17:29 18:54 Temperature Pulse Rate 93 98 Respiratory 18 18 Rate Blood Pressure 107/81 107/77 O2 Sat by Pulse 96 93 L Oximetry EKG Findings - EKG Comments: EKG Findings:: EKG shows normal sinus rhythm with a PVC and a rate of [address] segment elevation, depression. No prolonged QT/QTc or TX interval. No dysrythmia noted. Medical Decision Making - Medical Decision Making 78-year-old male presenting with an episode of severe hypotension and outpatient surgery center. Initial presentation to the ER the patient is awake, alert, he's in no acute distress. He is borderline hypotensive on a dopamine infusion at 9 mcg/kg/m. He is not complaining of any chest pain or shortness of breath. On the paperwork from the facility there is noted to be concern for ST segment elevation, however on review of their paperwork it appears that this is a PVC. AG here shows no evidence of a STEMI. The patient has a single lumen central line as well as to large-bore peripheral IVs. We'll hold on replacing the central line for a triple-lumen as the patient is only requiring pressors and IV fluids at this point. Started the patient on Levophed infusion and DC'd the dopamine. He was found to have an elevated troponin and lactic acid, however at this time this is likely seconary to his profound hypotension then it was due to ACS. A CT was done to evaluate the patient's known aortic aneurysm, and showed to change in size. Patient was unable to receive contrast due to allergy. I spoke with Dr. Sandoval who recommended continuing IV fluids regardless of the interstitial prominence seen on CT. Patient is currently on his home O2 and is no respiratory distress. Patient's CT showed new hydronephrosis consistent with obstruction that is new since March 2018. Patient has a joy in that is draining clear urine. - Lab Data Result diagrams: 04/08/19 15:37 04/08/19 15:37 Lab Results 04/08/19 04/08/19 04/08/19 Range/Units 15:37 15:37 15:37 WBC (3.8-10.6) k/uL RBC (4.30-5.90) m/uL Hgb (13.0-17.5) gm/dL Hct (39.0-53.0) % MCV (80.0-100.0) fL MCH (25.0-35.0) pg MCHC (31.0-37.0) g/dL RDW (11.5-15.5) % Plt Count (150-450) k/uL Neutrophils % % Lymphocytes % % Monocytes % % Eosinophils % % Basophils % % Neutrophils # (1.3-7.7) k/uL Lymphocytes # (1.0-4.8) k/uL Monocytes # (0-1.0) k/uL Eosinophils # (0-0.7) k/uL Basophils # (0-0.2) k/uL Anisocytosis VBG pH (7.31-7.41) VBG pCO2 (37-51) mmHg VBG HCO3 (24-28) mmol/L Sodium 139 (137-145) mmol/L Potassium 3.7 (3.5-5.1) mmol/L Chloride 110 H (98-107) mmol/L Carbon Dioxide 23 (22-30) mmol/L Anion Gap 6 mmol/L BUN 15 (9-20) mg/dL Creatinine 0.85 (0.66-1.25) mg/dL Est GFR (CKD-EPI)AfAm >90 (>60 ml/min/1.73 sqM) Est GFR (CKD-EPI)NonAf 82 (>60 ml/min/1.73 sqM) Glucose 117 H (74-99) mg/dL Lactic Ac Sepsis Rflx Plasma Lactic Acid Kiran 2.1 H* (0.7-2.0) mmol/L Calcium 8.5 (8.4-10.2) mg/dL Total Bilirubin 0.8 (0.2-1.3) mg/dL Conjugated Bilirubin 0.0 (0.0-0.3) mg/dL Unconjugated Bilirubin 0.8 (0.0-1.1) mg/dL Delta Bilirubin 0.0 (0.0-0.2) mg/dL AST 17 (17-59) U/L ALT 17 L (21-72) U/L Alkaline Phosphatase 97 (38-126) U/L Troponin I (0.000-0.034) ng/mL NT-Pro-B Natriuret Pep 547 pg/mL Total Protein 5.6 L (6.3-8.2) g/dL Albumin 3.0 L (3.5-5.0) g/dL Lipase 17 L (23-300) U/L TSH 3.960 (0.465-4.680) mIU/L Urine Color Urine Appearance (Clear) Urine pH (5.0-8.0) Ur Specific [place] (1.001-1.035) Urine Protein (Negative) Urine Glucose (UA) (Negative) Urine Ketones (Negative) Urine Blood (Negative) Urine Nitrite (Negative) Urine Bilirubin (Negative) Urine Urobilinogen (<2.0) mg/dL Ur Leukocyte Esterase (Negative) Urine RBC (0-5) /hpf Urine WBC (0-5) /hpf Ur Squamous Epith Cells (0-4) /hpf Hyaline Casts (0-2) /lpf Urine Mucus (None) /hpf Urine Sperm (None) /hpf 04/08/19 04/08/19 04/08/19 Range/Units 15:37 15:37 15:37 WBC 10.9 H (3.8-10.6) k/uL RBC 4.08 L (4.30-5.90) m/uL Hgb 11.2 L (13.0-17.5) gm/dL Hct 34.8 L (39.0-53.0) % MCV 85.3 (80.0-100.0) fL MCH 27.6 (25.0-35.0) pg MCHC 32.3 (31.0-37.0) g/dL RDW 16.1 H (11.5-15.5) % Plt Count 142 L (150-450) k/uL Neutrophils % 85 % Lymphocytes % 9 % Monocytes % 5 % Eosinophils % 1 % Basophils % 0 % Neutrophils # 9.2 H (1.3-7.7) k/uL Lymphocytes # 1.0 (1.0-4.8) k/uL Monocytes # 0.5 (0-1.0) k/uL Eosinophils # 0.1 (0-0.7) k/uL Basophils # 0.0 (0-0.2) k/uL Anisocytosis Slight VBG pH (7.31-7.41) VBG pCO2 (37-51) mmHg VBG HCO3 (24-28) mmol/L Sodium (137-145) mmol/L Potassium (3.5-5.1) mmol/L Chloride (98-107) mmol/L Carbon Dioxide (22-30) mmol/L Anion Gap mmol/L BUN (9-20) mg/dL Creatinine (0.66-1.25) mg/dL Est GFR (CKD-EPI)AfAm (>60 ml/min/1.73 sqM) Est GFR (CKD-EPI)NonAf (>60 ml/min/1.73 sqM) Glucose (74-99) mg/dL Lactic Ac Sepsis Rflx Plasma Lactic Acid Kiran (0.7-2.0) mmol/L Calcium (8.4-10.2) mg/dL Total Bilirubin (0.2-1.3) mg/dL Conjugated Bilirubin (0.0-0.3) mg/dL Unconjugated Bilirubin (0.0-1.1) mg/dL Delta Bilirubin (0.0-0.2) mg/dL AST (17-59) U/L ALT (21-72) U/L Alkaline Phosphatase (38-126) U/L Troponin I 0.389 H* (0.000-0.034) ng/mL NT-Pro-B Natriuret Pep pg/mL Total Protein (6.3-8.2) g/dL Albumin (3.5-5.0) g/dL Lipase (23-300) U/L TSH (0.465-4.680) mIU/L Urine Color Dark Yellow Urine Appearance Clear (Clear) Urine pH 7.0 (5.0-8.0) Ur Specific [place] 1.010 (1.001-1.035) Urine Protein 2+ H (Negative) Urine Glucose (UA) Negative (Negative) Urine Ketones Negative (Negative) Urine Blood Moderate H (Negative) Urine Nitrite Negative (Negative) Urine Bilirubin Negative (Negative) Urine Urobilinogen <2.0 (<2.0) mg/dL Ur Leukocyte Esterase Negative (Negative) Urine RBC >182 H (0-5) /hpf Urine WBC 1 (0-5) /hpf Ur Squamous Epith Cells <1 (0-4) /hpf Hyaline Casts 3 H (0-2) /lpf Urine Mucus Rare H (None) /hpf Urine Sperm Occasional H (None) /hpf 04/08/19 04/08/19 Range/Units 16:05 17:50 WBC (3.8-10.6) k/uL RBC (4.30-5.90) m/uL Hgb (13.0-17.5) gm/dL Hct (39.0-53.0) % MCV (80.0-100.0) fL MCH (25.0-35.0) pg MCHC (31.0-37.0) g/dL RDW (11.5-15.5) % Plt Count (150-450) k/uL Neutrophils % % Lymphocytes % % Monocytes % % Eosinophils % % Basophils % % Neutrophils # (1.3-7.7) k/uL Lymphocytes # (1.0-4.8) k/uL Monocytes # (0-1.0) k/uL Eosinophils # (0-0.7) k/uL Basophils # (0-0.2) k/uL Anisocytosis VBG pH 7.40 (7.31-7.41) VBG pCO2 39 (37-51) mmHg VBG HCO3 23 L (24-28) mmol/L Sodium (137-145) mmol/L Potassium (3.5-5.1) mmol/L Chloride (98-107) mmol/L Carbon Dioxide (22-30) mmol/L Anion Gap mmol/L BUN (9-20) mg/dL Creatinine (0.66-1.25) mg/dL Est GFR (CKD-EPI)AfAm (>60 ml/min/1.73 sqM) Est GFR (CKD-EPI)NonAf (>60 ml/min/1.73 sqM) Glucose (74-99) mg/dL Lactic Ac Sepsis Rflx Y Plasma Lactic Acid Kiran (0.7-2.0) mmol/L Calcium (8.4-10.2) mg/dL Total Bilirubin (0.2-1.3) mg/dL Conjugated Bilirubin (0.0-0.3) mg/dL Unconjugated Bilirubin (0.0-1.1) mg/dL Delta Bilirubin (0.0-0.2) mg/dL AST (17-59) U/L ALT (21-72) U/L Alkaline Phosphatase (38-126) U/L Troponin I (0.000-0.034) ng/mL NT-Pro-B Natriuret Pep pg/mL Total Protein (6.3-8.2) g/dL Albumin (3.5-5.0) g/dL Lipase (23-300) U/L TSH (0.465-4.680) mIU/L Urine Color Urine Appearance (Clear) Urine pH (5.0-8.0) Ur Specific [place] (1.001-1.035) Urine Protein (Negative) Urine Glucose (UA) (Negative) Urine Ketones (Negative) Urine Blood (Negative) Urine Nitrite (Negative) Urine Bilirubin (Negative) Urine Urobilinogen (<2.0) mg/dL Ur Leukocyte Esterase (Negative) Urine RBC (0-5) /hpf Urine WBC (0-5) /hpf Ur Squamous Epith Cells (0-4) /hpf Hyaline Casts (0-2) /lpf Urine Mucus (None) /hpf Urine Sperm (None) /hpf Critical Care Time Critical Care Time: Yes Total Critical Care Time: 33 Critical Care Time: Critical Care Time Critical care time was exclusive of separately billable procedures and treating other patients and teaching time. Critical care was necessary to treat or prevent imminent or life-threatening deterioration. Given the critical condition in which the patient arrived, the patient was immediately assessed by myself and the nurse, and cardiac monitoring initiated due to the potential for rapid decompensation of the patient's clinical condition. During the course of the patients stay, I spent a considerable amount of time at the bedside performing serial re-evaluations of the patient's hemodynamic and clinical status because of the recognized potential threat to life or limb in this condition. I then had a chance to review not only all of the available current laboratory and radiographic studies obtained today, but I also reviewed old records available to me at the time. Additionally, any ancillary information available including drill press tender records were reviewed. Sequential vital signs were obtained. Disposition Clinical Impression: NSTEMI (non-ST elevated myocardial infarction), Lactic acidosis, Hypotension Disposition: ADMITTED IP TO THIS HOSP Is patient prescribed a controlled substance at d/c from ED?: No Referrals: Jess Singleton DO [Primary Care Provider] - 1-2 days Decision to Admit Reason: Admit from EC Decision Date: 04/08/19 Decision Time: 17:58
[2019-04-08 15:56] LABS: ALT 17 U/L (21-72); AST 17 U/L (17-59); African American GFR (CKD) >90 (>60 ml/min/1.73 sqM); Alkaline Phosphatase 97 U/L (38-126); Anion Gap 6 mmol/L; Bilirubin,Unconjugated 0.8 mg/dL (0.0-1.1); Blood Urea Nitrogen 15 mg/dL (9-20); Calcium 8.5 mg/dL (8.4-10.2); Carbon Dioxide 23 mmol/L (22-30); Chloride 110 mmol/L (98-107); Glucose 117 mg/dL (74-99); Potassium 3.7 mmol/L (3.5-5.1); Sodium 139 mmol/L (137-145); Total Bilirubin 0.8 mg/dL (0.2-1.3); Total Protein 5.6 g/dL (6.3-8.2)
[2019-04-08 15:58] LABS: Appearance,Urine Clear (Clear); Bilirubin,Urine Negative (Negative); Blood,Urine Moderate (Negative); Color,Urine Dark Yellow; Glucose,Urine (UA) Negative (Negative); Hyaline Casts,Urine 3 /lpf (0-2); Ketones,Urine Negative (Negative); Leukocyte Esterase,Urine Negative (Negative); Mucus,Urine Rare /hpf; Nitrite,Urine Negative (Negative); Protein,Urine 2+ (Negative); RBC,Urine >182 /hpf (0-5); Sperm,Urine Occasional /hpf; Squamous Epithelial Cell,Urine <1 /hpf (0-4); Urobilinogen,Urine <2.0 mg/dL (<2.0)
--- NOTE | 2019-04-08 16:02 | XR ---
EXAMINATION TYPE: XR chest 1V portable DATE OF EXAM: 04/08/2019 Comparison: 03/29/2019 Clinical History: 78-year-old male Pain Findings: Median sternotomy wires are present with post-CABG clips. Heart normal size. Diffuse interstitial pro minence. Mild hyperinflation. No krissy consolidation or pleural effusion. Left CVC tip at the lower S VC. Impression: Diffuse interstitial changes have increased. Correlate for possible etiologies such as bronchitis, as thma, atypical pneumonias, or interstitial pneumonitis.
[2019-04-08] MEDS ORDERED: SODIUM CHLORIDE 0.9% 1,000 ML IV SCH ×2 (16:45→17:45)
--- NOTE | 2019-04-08 17:24 | CT ---
EXAMINATION TYPE: CT ChestAbdPelvis wo con DATE OF EXAM: 04/08/2019 COMPARISON: CT chest 05/10/2018 HISTORY: Lost pulses during outpatient procedure. CT DLP: 520.6 mGycm. Automated Exposure Control for Dose Reduction was Utilized. TECHNIQUE: CT scan of the thorax, abdomen and pelvis is performed without IV contrast. FINDINGS: There is patchy pulmonary emphysema. There is coarse reticular peripheral pulmonary infiltrates consi stent with advanced pulmonary fibrosis. There is some patchy infiltrate and atelectasis at the employment officer ior lung bases. Liver shows no focal defect. Bile ducts are not dilated. Gallbladder has normal size. Spleen appears normal. There are multiple surgical clips at the gastric fundus. Stomach is not dilated. There is 5.5 cm aneurysm of the lower abdominal aorta. There is no retroperitoneal adenopathy. There are multiple bilateral renal cortical cysts that measure up to 4.2 cm. There is bilateral hydro nephrosis and hydroureter. There are bilateral renal calcifications up to 6 mm in the left kidney. Th ere is Mag[place] catheter in the urinary bladder. There are multiple prostatic calcifications. Urinary bl adder appears to have significant wall thickening. There is perirectal increased density consistent w ith edema. There is small amount of fluid in the paracolic gutters. There are multiple diverticula in the proximal sigmoid colon. I see no sign of diverticulitis. There is no evidence of free air. There is no evidence of bowel obstruction. 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 There is multilevel spondylotic change in the thoracic and lumbar spine. There is mild compression de formities of L4 L3 and T8 vertebra. Appendix appears normal. Multiple mild compression fractures unch anged. IMPRESSION: Extensive pulmonary interstitial fibrosis. Pulmonary emphysema. There is new bilateral basilar pulmon tank infiltrates and pleural fluid and atelectasis compared to 03/29/2019 exam. This could relate to in creasing congestive heart failure compared to 03/29/2019 exam. Atherosclerotic vascular disease. 5.5 cm aneurysm of the abdominal aorta unchanged. Iliac artery aneurysms unchanged. There is new hydronephrosis and hydroureter and urinary bladder wall thickening compared to 03/22/2018 consistent with obstruction. Urinary bladder appearance is more likely inflammatory. Enlarged prosta te. There is new perirectal edema and minimal intraperitoneal fluid compared to old exam. Mild coloni c diverticulosis.
[2019-04-08 17:52] LABS: Anisocytosis Slight; Basophils % (A) 0 %; Eosinophils # (A) 0.1 k/uL (0-0.7); Eosinophils % (A) 1 %; HCT 34.8 % (39.0-53.0); HGB 11.2 gm/dL (13.0-17.5); Lymphocytes % (A) 9 %; MCH 27.6 pg (25.0-35.0); MCHC 32.3 g/dL (31.0-37.0); MCV 85.3 fL (80.0-100.0); Mean Platelet Volume 7.3; Monocytes # (A) 0.5 k/uL (0-1.0); Monocytes % (A) 5 %; Neutrophils # (A) 9.2 k/uL (1.3-7.7); Neutrophils % (A) 85 %; Platelet Count 142 k/uL (150-450); RBC 4.08 m/uL (4.30-5.90); RDW 16.1 % (11.5-15.5); WBC 10.9 k/uL (3.8-10.6)
[2019-04-08] MEDS ORDERED: ACETAMINOPHEN TAB 325 MG TAB PO PRN (17:55)
[2019-04-08] MEDS ORDERED: NALOXONE 0.4 MG/ML 1 ML VIAL IV PRN (17:55)
[2019-04-08] MEDS: SODIUM CHLORIDE 0.9% 1,000 ML IV SCH ×2 (17:55→23:15)
[2019-04-08 17:59] LABS: VBG PH 7.4 (7.31-7.41)
[2019-04-08 20:51] LABS: Glucose,Whole Blood 116 mg/dL (75-99)
[2019-04-08] MEDS: IPRATROPIUM-ALBUTEROL 3 ML NEB INHALATION SCH (21:07)
[2019-04-08] MEDS: SYMBICORT 160-4.5 MCG INHALER INHALATION SCH (21:08)
[2019-04-08] MEDS: ASPIRIN 325 MG TAB PO SCH (23:16)
[2019-04-08] MEDS: ATORVASTATIN 20 MG TAB PO SCH (23:16)
[2019-04-09 05:09] LABS: Basophils # (A) 0.1 k/uL (0-0.2); Basophils % (A) 1 %; Eosinophils # (A) 0.1 k/uL (0-0.7); Eosinophils % (A) 1 %; HCT 33.3 % (39.0-53.0); HGB 10.2 gm/dL (13.0-17.5); Lymphocytes % (A) 19 %; MCH 25.9 pg (25.0-35.0); MCHC 30.8 g/dL (31.0-37.0); Mean Platelet Volume 7.1; Monocytes # (A) 0.7 k/uL (0-1.0); Monocytes % (A) 7 %; Neutrophils # (A) 7.3 k/uL (1.3-7.7); Neutrophils % (A) 71 %; Platelet Count 145 k/uL (150-450); RBC 3.96 m/uL (4.30-5.90); RDW 15.4 % (11.5-15.5); WBC 10.3 k/uL (3.8-10.6)
[2019-04-09 05:18] LABS: African American GFR (CKD) >90 (>60 ml/min/1.73 sqM); Anion Gap 5 mmol/L; Blood Urea Nitrogen 15 mg/dL (9-20); Calcium 7.9 mg/dL (8.4-10.2); Carbon Dioxide 23 mmol/L (22-30); Chloride 110 mmol/L (98-107); Glucose 99 mg/dL (74-99); Sodium 138 mmol/L (137-145)
[2019-04-09] MEDS: LEVOTHYROXINE 112 MCG TAB PO SCH (06:21)
[2019-04-09] MEDS: IPRATROPIUM-ALBUTEROL 3 ML NEB INHALATION SCH ×3 (07:43→21:11)
[2019-04-09] MEDS: SYMBICORT 160-4.5 MCG INHALER INHALATION SCH ×2 (07:43→21:11)
--- NOTE | 2019-04-09 08:07 | XR ---
EXAMINATION TYPE: XR chest 1V DATE OF EXAM: 04/09/2019 COMPARISON: Prior chest x-ray 04/08/2019 HISTORY: Shortness of breath TECHNIQUE: Single frontal view of the chest is obtained. FINDINGS: Left jugular central venous catheter is stable, patient is post median sternotomy. There a re overlying cardiac leads. No evident pneumothorax. Interstitium is increased. Bibasilar increased d ensity is noted. Heart size is stable. IMPRESSION: Correlate for pulmonary venous hypertension and interstitial edema. Follow-up is recomme nded.
[2019-04-09] MEDS: SODIUM CHLORIDE 0.9% 1,000 ML IV SCH (08:40)
[2019-04-09] MEDS: ASPIRIN 325 MG TAB PO SCH (09:52)
[2019-04-09] MEDS: MONTELUKAST 10 MG TAB PO SCH (09:52)
[2019-04-09] MEDS: OXYBUTYNIN XL 5 MG TAB.ER.24 PO SCH (09:52)
[2019-04-09] MEDS: SERTRALINE 50 MG TAB PO SCH (09:53)
[2019-04-09] MEDS: PRASUGREL 10 MG TAB PO SCH (10:21)
[2019-04-09] MEDS: NOREPINEPHRINE 4 MG in SODIUM CHLORIDE 0.9% 250 ML IV SCH (11:08)
--- NOTE | 2019-04-09 11:24 | P.GSCN ---
History of Present Illness Consult date: 04/09/19 History of present illness: 78 male known to me for bladder cancer WAs to have a turbt yesteray but upon anesthetic induction he developed significant hypotension that the case was never done. The patient was initially seen for incontinence and hematuria when the ca of the bladder was identified. the patient vaibhav need a turbt at some time for both therapeutic and prognostic reasons. Past Medical History Past Medical History: Coronary Artery Disease (CAD), Cancer, Chest Pain / Angina, COPD, GERD/Reflux, Hyperlipidemia, Myocardial Infarction ([place]), Osteoarthritis (OA), Pneumonia, Prostate Disorder, Sleep Apnea/CPAP/BIPAP, T hyroid Disorder Additional Past Medical History / Comment(s): BACK PAIN,herniated disc, pinched nerves,emphysema, hemorrhoids,skin cancer, walt cataracts-had sx, thin skin prone to bruises/skin tears. Last Myocardial Infarction Date:: unk History of Any Multi-Drug Resistant Organisms: None Reported Past Surgical History: Coronary Bypass/CABG Additional Past Surgical History / Comment(s): cataracts, 3 vessel cabg, past peg tube since removed." lizbet in penis", hemorrhoids, ?egd. pmh : lap heller myotomy Past Anesthesia/Blood Transfusion Reactions: No Reported Reaction Past Psychological History: No Psychological Hx Reported Additional Psychological History / Comment(s): pt lives with his [address]nd in apt built onto his sons home. has 3 steps to enter it. pt uses acane when up. no outside services. no past MD On-Line service. retires from the [employer] at [employer]. Smoking Status: Current every day smoker Past Alcohol Use History: Rare Additional Past Alcohol Use History / Comment(s): started smoking at age 12- has quit here and there. stated if busy outside or on project will smoke 1 ppd, if just sitting at home smokes 2 ppd. in past drank heavy-quit 36 years ago. Past Drug Use History: None Reported - Past Family History Mother Family Medical History: Cancer Additional Family Medical History / Comment(s): breast cancer Sister(s) Family Medical History: Cancer Additional Family Medical History / Comment(s): colon cancer Father History Unknown: Yes Additional Family Medical History / Comment(s): pt's father when pt was 3 years old. Medications and Allergies Home Medications Medication Instructions Recorded Confirmed Type Atorvastatin [Lipitor] 20 mg PO HS 05/09/17 04/08/19 History Isosorbide Mononitrate ER [Imdur] 30 mg PO DAILY 05/09/17 04/08/19 History Levothyroxine Sodium [Synthroid] 112 mcg PO DAILY 05/09/17 04/08/19 History Prasugrel [Effient] 10 mg PO DAILY 05/09/17 04/08/19 History Sertraline [Zoloft] 50 mg PO DAILY 05/09/17 04/08/19 History Aspirin 325 mg PO DAILY 02/20/19 04/08/19 History Tolterodine ER [Detrol LA] 2 mg PO DAILY 02/20/19 04/08/19 History Ipratropium-Albuterol Nebulize 3 ml INHALATION RT-TID 03/29/19 04/08/19 History [Duoneb 0.5 mg-3 mg/3 ml Soln] Montelukast [Singulair] 10 mg PO DAILY 03/29/19 04/08/19 History Budesonide-Formot 160-4.5 Mcg 2 puff INHALATION RT-BID 04/08/19 04/08/19 History [Symbicort 160-4.5 Mcg Inhaler] Cranberry Fruit Concentrate [Azo 250 mg PO DAILY 04/08/19 04/08/19 History Cranberry] Allergies Allergy/AdvReac Type Severity Reaction Status Date / Time iodine Allergy Rash/Hives Verified 04/08/19 17:08 Surgical - Exam Vital Signs Temp Pulse Resp BP Pulse Ox 97.5 F L 98 18 86/42 96 04/08/19 15:20 04/08/19 15:20 04/08/19 15:20 04/08/19 15:20 04/08/19 15:20 - General well developed - ENT no hearing loss - Neck no masses, trachea midline - Respiratory normal expansion, normal respiratory effort - Abdomen Abdomen: soft, non tender - Genitourinary semirigid penile implant with joy - Neurologic normal coordination, normal sensation - Musculoskeletal normal posture - Psychiatric oriented to time, oriented to person, oriented to place, speech is normal, memory intact Results - Labs 04/09/19 04:55 04/09/19 04:55 Abnormal Lab Results - Last 24 Hours (Table) 04/08/19 04/08/19 04/08/19 Range/Units 15:37 15:37 15:37 WBC (3.8-10.6) k/uL RBC (4.30-5.90) m/uL Hgb (13.0-17.5) gm/dL Hct (39.0-53.0) % MCHC (31.0-37.0) g/dL RDW (11.5-15.5) % Plt Count (150-450) k/uL Neutrophils # (1.3-7.7) k/uL VBG HCO3 (24-28) mmol/L Chloride 110 H (98-107) mmol/L Glucose 117 H (74-99) mg/dL POC Glucose (mg/dL) (75-99) mg/dL Plasma Lactic Acid Kiran 2.1 H* (0.7-2.0) mmol/L Calcium (8.4-10.2) mg/dL ALT 17 L (21-72) U/L Troponin I 0.389 H* (0.000-0.034) ng/mL Total Protein 5.6 L (6.3-8.2) g/dL Albumin 3.0 L (3.5-5.0) g/dL Lipase 17 L (23-300) U/L Urine Protein (Negative) Urine Blood (Negative) Urine RBC (0-5) /hpf Hyaline Casts (0-2) /lpf Urine Mucus (None) /hpf Urine Sperm (None) /hpf 04/08/19 04/08/19 04/08/19 Range/Units 15:37 15:37 17:50 WBC 10.9 H (3.8-10.6) k/uL RBC 4.08 L (4.30-5.90) m/uL Hgb 11.2 L (13.0-17.5) gm/dL Hct 34.8 L (39.0-53.0) % MCHC (31.0-37.0) g/dL RDW 16.1 H (11.5-15.5) % Plt Count 142 L (150-450) k/uL Neutrophils # 9.2 H (1.3-7.7) k/uL VBG HCO3 23 L (24-28) mmol/L Chloride (98-107) mmol/L Glucose (74-99) mg/dL POC Glucose (mg/dL) (75-99) mg/dL Plasma Lactic Acid Kiran (0.7-2.0) mmol/L Calcium (8.4-10.2) mg/dL ALT (21-72) U/L Troponin I (0.000-0.034) ng/mL Total Protein (6.3-8.2) g/dL Albumin (3.5-5.0) g/dL Lipase (23-300) U/L Urine Protein 2+ H (Negative) Urine Blood Moderate H (Negative) Urine RBC >182 H (0-5) /hpf Hyaline Casts 3 H (0-2) /lpf Urine Mucus Rare H (None) /hpf Urine Sperm Occasional H (None) /hpf 04/08/19 04/08/19 04/09/19 Range/Units 20:47 22:03 04:55 WBC (3.8-10.6) k/uL RBC 3.96 L (4.30-5.90) m/uL Hgb 10.2 L (13.0-17.5) gm/dL Hct 33.3 L (39.0-53.0) % MCHC 30.8 L (31.0-37.0) g/dL RDW (11.5-15.5) % Plt Count 145 L (150-450) k/uL Neutrophils # (1.3-7.7) k/uL VBG HCO3 (24-28) mmol/L Chloride (98-107) mmol/L Glucose (74-99) mg/dL POC Glucose (mg/dL) 116 H (75-99) mg/dL Plasma Lactic Acid Kiran (0.7-2.0) mmol/L Calcium (8.4-10.2) mg/dL ALT (21-72) U/L Troponin I 1.820 H* (0.000-0.034) ng/mL Total Protein (6.3-8.2) g/dL Albumin (3.5-5.0) g/dL Lipase (23-300) U/L Urine Protein (Negative) Urine Blood (Negative) Urine RBC (0-5) /hpf Hyaline Casts (0-2) /lpf Urine Mucus (None) /hpf Urine Sperm (None) /hpf 04/09/19 04/09/19 Range/Units 04:55 04:55 WBC (3.8-10.6) k/uL RBC (4.30-5.90) m/uL Hgb (13.0-17.5) gm/dL Hct (39.0-53.0) % MCHC (31.0-37.0) g/dL RDW (11.5-15.5) % Plt Count (150-450) k/uL Neutrophils # (1.3-7.7) k/uL VBG HCO3 (24-28) mmol/L Chloride 110 H (98-107) mmol/L Glucose (74-99) mg/dL POC Glucose (mg/dL) (75-99) mg/dL Plasma Lactic Acid Kiran (0.7-2.0) mmol/L Calcium 7.9 L (8.4-10.2) mg/dL ALT (21-72) U/L Troponin I 1.040 H* (0.000-0.034) ng/mL Total Protein (6.3-8.2) g/dL Albumin (3.5-5.0) g/dL Lipase (23-300) U/L Urine Protein (Negative) Urine Blood (Negative) Urine RBC (0-5) /hpf Hyaline Casts (0-2) /lpf Urine Mucus (None) /hpf Urine Sperm (None) /hpf Diabetes panel 04/08/19 04/09/19 Range/Units 15:37 04:55 Sodium 139 138 (137-145) mmol/L Potassium 3.7 4.0 (3.5-5.1) mmol/L Chloride 110 H 110 H (98-107) mmol/L Carbon Dioxide 23 23 (22-30) mmol/L BUN 15 15 (9-20) mg/dL Creatinine 0.85 0.71 (0.66-1.25) mg/dL Glucose 117 H 99 (74-99) mg/dL Calcium 8.5 7.9 L (8.4-10.2) mg/dL AST 17 (17-59) U/L ALT 17 L (21-72) U/L Alkaline Phosphatase 97 (38-126) U/L Total Protein 5.6 L (6.3-8.2) g/dL Albumin 3.0 L (3.5-5.0) g/dL Thyroid panel 04/08/19 Range/Units 15:37 TSH 3.960 (0.465-4.680) mIU/L Calcium panel 04/08/19 04/09/19 Range/Units 15:37 04:55 Calcium 8.5 7.9 L (8.4-10.2) mg/dL Albumin 3.0 L (3.5-5.0) g/dL Pituitary panel 04/08/19 04/09/19 Range/Units 15:37 04:55 Sodium 139 138 (137-145) mmol/L Potassium 3.7 4.0 (3.5-5.1) mmol/L Chloride 110 H 110 H (98-107) mmol/L Carbon Dioxide 23 23 (22-30) mmol/L BUN 15 15 (9-20) mg/dL Creatinine 0.85 0.71 (0.66-1.25) mg/dL Glucose 117 H 99 (74-99) mg/dL Calcium 8.5 7.9 L (8.4-10.2) mg/dL TSH 3.960 (0.465-4.680) mIU/L Adrenal panel 04/08/19 04/09/19 Range/Units 15:37 04:55 Sodium 139 138 (137-145) mmol/L Potassium 3.7 4.0 (3.5-5.1) mmol/L Chloride 110 H 110 H (98-107) mmol/L Carbon Dioxide 23 23 (22-30) mmol/L BUN 15 15 (9-20) mg/dL Creatinine 0.85 0.71 (0.66-1.25) mg/dL Glucose 117 H 99 (74-99) mg/dL Calcium 8.5 7.9 L (8.4-10.2) mg/dL Total Bilirubin 0.8 (0.2-1.3) mg/dL AST 17 (17-59) U/L ALT 17 L (21-72) U/L Alkaline Phosphatase 97 (38-126) U/L Total Protein 5.6 L (6.3-8.2) g/dL Albumin 3.0 L (3.5-5.0) g/dL Assessment and Plan Assessment: Impression: Bladder ca. Anesthetic induced hypotension, ? cardiac. Plan From a urological standpoint he will need a turbt in the future.This isnt an emergency
--- NOTE | 2019-04-09 13:43 | P.CNPUL ---
History of Present Illness Consult date: 04/09/19 Reason for consult: other (Hypotension) Chief complaint: Incontinence and hematuria History of present illness: This is an 78-year-old white male with history of multiple medical problems including coronary artery disease, previous CABG, bladder cancer, patient was recently complaining of hematuria and incontinence. Patient was scheduled to have TUR BT by Dr. Calvert, however upon anesthetic induction, patient developed profound hypotension, received epinephrine by anesthesia, the surgery was never done, it was canceled, and the patient was transferred to the ER at [facility]. Patient was initially placed on dopamine, however he was switched to a low dose of norepinephrine, transferred to the intensive care unit, received fluids at a chest x-ray showed some mild interstitial edema. Hence fluids were discontinued this morning, and recommended tapering and discontinuing norepinephrine earlier this morning upon my evaluation. During my evaluation, the patient was asymptomatic. He had no chest pain no cough no wheezing no shortness of breath no nausea no vomiting no abdominal pain he does have chronic history of hematuria and incontinence. And that is related to his underlying bladder cancer which was diagnosed by urology. Labs this morning showed relatively normal CBC except for hemoglobin of 10.2. Normal electrolytes, normal renal profile, however his troponin was noted to be elevated at 1.820 on admission and it is 1.040 this morning, hence I recommended cardiac evaluation. Patient normally sees a bolt threader out of [place]. Review of Systems Constitutional: Denies fever, chills denies weight loss. Eyes: Denies change in vision, denies diplopia and blurred vision. Ears, nose, mouth, throat: Denies headaches, Denies sore throat Cardiovascular: Denies chest pain. Denies palpitations Respiratory: Denies shortness of breath, Denies cough Gastrointestinal: Positive abdominal pain. Denies nausea, vomiting, diarrhea. Genitourinary: History of hematuria and incontinence. Refer to HPI. Musculoskeletal: Denies pain, Denies swelling Integumentary: Denies rash Neurological: Denies headache, focal weakness, focal numbness Psychiatric: Denies anxiety, Denies depression Hematologic/Lymphatic: Denies easy bleeding or bruising Past Medical History Past Medical History: Coronary Artery Disease (CAD), Cancer, Chest Pain / Angina, COPD, GERD/Reflux, Hyperlipidemia, Myocardial Infarction ([place]), Osteoarthritis (OA), Pneumonia, Prostate Disorder, Sleep Apnea/CPAP/BIPAP, Thyroid Disorder Additional Past Medical History / Comment(s): BACK PAIN,herniated disc, pinched nerves,emphysema, hemorrhoids,skin cancer, walt cataracts-had sx, thin skin prone to bruises/skin tears. Last Myocardial Infarction Date:: unk History of Any Multi-Drug Resistant Organisms: None Reported Past Surgical History: Coronary Bypass/CABG Additional Past Surgical History / Comment(s): cataracts, 3 vessel cabg, past peg tube since removed." lizbet in penis", hemorrhoids, ?egd. pmh : lap heller myotomy Past Anesthesia/Blood Transfusion Reactions: No Reported Reaction Past Psychological History: No Psychological Hx Reported Additional Psychological History / Comment(s): pt lives with his [address]nd in apt built onto his sons home. has 3 [address] to enter it. pt uses [employer] when up. no outside services. no past [employer] service. retires from the [employer] at [employer]. Smoking Status: Current every day smoker Past Alcohol Use History: Rare Additional Past Alcohol Use History / Comment(s): started smoking at age 12- has quit here and there. stated if busy outside or on project will smoke 1 ppd, if just sitting at home smokes 2 ppd. in past drank heavy-quit 36 years ago. Past Drug Use History: None Reported - Past Family History Mother Family Medical History: Cancer Additional Family Medical History / Comment(s): breast cancer Sister(s) Family Medical History: Cancer Additional Family Medical History / Comment(s): colon cancer Father History Unknown: Yes Additional Family Medical History / Comment(s): pt's father when pt was 3 years old. Medications and Allergies Home Medications Medication Instructions Recorded Confirmed Type Atorvastatin [Lipitor] 20 mg PO HS 05/09/17 04/08/19 History Isosorbide Mononitrate ER [Imdur] 30 mg PO DAILY 05/09/17 04/08/19 History Levothyroxine Sodium [Synthroid] 112 mcg PO DAILY 05/09/17 04/08/19 History Prasugrel [Effient] 10 mg PO DAILY 05/09/17 04/08/19 History Sertraline [Zoloft] 50 mg PO DAILY 05/09/17 04/08/19 History Aspirin 325 mg PO DAILY 02/20/19 04/08/19 History Tolterodine ER [Detrol LA] 2 mg PO DAILY 02/20/19 04/08/19 History Ipratropium-Albuterol Nebulize 3 ml INHALATION RT-TID 03/29/19 04/08/19 History [Duoneb 0.5 mg-3 mg/3 ml Soln] Montelukast [Singulair] 10 mg PO DAILY 03/29/19 04/08/19 History Budesonide-Formot 160-4.5 Mcg 2 puff INHALATION RT-BID 04/08/19 04/08/19 History [Symbicort 160-4.5 Mcg Inhaler] Cranberry Fruit Concentrate [Azo 250 mg PO DAILY 04/08/19 04/08/19 History Cranberry] Allergies Allergy/AdvReac Type Severity Reaction Status Date / Time iodine Allergy Rash/Hives Verified 04/08/19 17:08 Physical Exam Vitals: Vital Signs Temp Pulse Resp BP Pulse Ox 04/09/19 13:25 82 04/09/19 13:16 84 04/09/19 13:00 84 8 L 95/62 91 L 04/09/19 12:45 20 90/63 95 04/09/19 12:30 80 21 97/64 91 L 04/09/19 12:15 79 23 98/61 91 L 04/09/19 12:00 85 30 H 102/71 91 L 04/09/19 11:45 80 21 106/67 90 L 04/09/19 11:30 80 21 100/66 91 L 04/09/19 11:15 80 19 93/61 94 L 04/09/19 11:00 88 16 98/73 92 L 04/09/19 10:45 77 19 103/65 92 L 04/09/19 10:30 87 21 93/63 93 L 04/09/19 10:15 81 20 90 L 04/09/19 10:00 79 18 97/64 90 L 04/09/19 09:45 84 18 95/63 92 L 04/09/19 09:30 87 17 91/62 90 L 04/09/19 09:15 83 30 H 98/63 91 L 04/09/19 09:00 90 16 99/64 90 L 04/09/19 08:45 107 H 21 72/49 94 L 04/09/19 08:30 87 28 H 88/60 90 L 04/09/19 08:15 86 15 112/72 90 L 04/09/19 08:00 90 14 87/61 91 L 04/09/19 07:58 90 04/09/19 07:45 93 19 91/62 91 L 04/09/19 07:43 84 96 04/09/19 07:30 83 13 96/67 90 L 04/09/19 07:15 91 24 94/65 90 L 04/09/19 07:00 82 18 94/65 94 L 04/09/19 06:30 82 24 103/53 92 L 04/09/19 06:00 91 20 94/60 95 04/09/19 05:30 82 20 94/65 95 04/09/19 05:00 86 18 93/65 94 L 04/09/19 04:30 86 16 91/63 95 04/09/19 04:00 97.9 F 88 25 H 93/66 95 04/09/19 03:30 97 12 93/65 94 L 04/09/19 03:00 82 14 94/61 94 L 04/09/19 02:30 76 12 95/66 95 04/09/19 02:00 90 12 97/66 92 L 04/09/19 01:45 87 12 95/67 94 L 04/09/19 01:30 90 19 99/63 93 L 04/09/19 01:15 86 14 95/65 93 L 04/09/19 01:00 87 15 96/66 92 L 04/09/19 00:45 87 18 96/63 92 L 04/09/19 00:30 89 18 92/64 92 L 04/09/19 00:15 90 18 92/62 95 04/09/19 00:00 97.7 F 88 14 96/65 94 L 04/08/19 23:45 88 14 97/65 93 L 04/08/19 23:38 83 16 97/60 93 L 04/08/19 23:30 87 14 93/65 93 L 04/08/19 23:15 89 18 95/68 94 L 04/08/19 23:00 89 18 95/64 94 L 04/08/19 22:45 90 12 94/63 94 L 04/08/19 22:30 90 12 93/64 93 L 04/08/19 22:15 88 18 88/64 92 L 04/08/19 22:00 86 14 92/67 93 L 04/08/19 21:45 88 23 91/60 96 04/08/19 21:37 18 04/08/19 21:30 84 12 102/76 94 L 04/08/19 21:15 116 H 22 103/73 96 04/08/19 21:14 112 H 04/08/19 21:09 111 H 04/08/19 21:00 97.6 F 102 H 12 103/77 94 L 04/08/19 20:46 92 30 H 93 L 04/08/19 20:20 91 21 93/69 95 04/08/19 20:10 98 35 H 99/71 95 04/08/19 20:00 92 24 104/74 94 L 04/08/19 19:50 91 13 104/74 95 04/08/19 19:40 29 H 103/76 96 04/08/19 19:30 90 22 109/71 95 04/08/19 19:20 95 26 H 109/71 96 04/08/19 19:10 28 H 104/70 95 04/08/19 19:00 93 28 H 107/77 95 04/08/19 18:54 98 18 107/77 93 L 04/08/19 18:50 104 H 15 107/77 96 04/08/19 18:40 22 99/74 96 04/08/19 18:30 92 19 104/73 94 L 04/08/19 18:20 95 21 104/73 94 L 04/08/19 18:10 122 H 6 L 110/78 94 L 04/08/19 18:00 114 H 3 L 106/77 96 04/08/19 17:50 102 H 13 96/70 80 L 04/08/19 17:40 101 H 22 103/74 96 04/08/19 17:30 96 28 H 107/81 95 04/08/19 17:29 93 18 107/81 96 04/08/19 17:20 105 H 5 L 107/81 97 04/08/19 17:10 99 14 95 04/08/19 17:00 104/74 04/08/19 16:50 100 28 H 104/74 93 L 04/08/19 16:45 104/74 04/08/19 16:40 26 H 105/65 94 L 04/08/19 16:30 22 98/64 94 L 04/08/19 16:20 95 21 98/64 92 L 04/08/19 16:10 97 21 105/75 95 04/08/19 16:03 102 H 18 105/75 99 04/08/19 16:00 93 18 94/68 99 04/08/19 15:50 95 14 75/57 97 04/08/19 15:40 94 26 H 85/62 97 04/08/19 15:30 99 24 86/62 95 04/08/19 15:24 98 16 04/08/19 15:20 97.5 F L 98 18 86/42 96 Intake and Output 04/08/19 04/09/19 04/09/19 22:59 06:59 14:59 Intake Total 200 800 562.688 Output Total 745 505 475 Balance -545 295 87.688 Intake: IV 200 800 340 Sodium Chloride 0.9% 1, 200 800 340 000 ml @ 20 mls/hr IV . Q24H [facility] Rx#:[id number] Intake, IV Titration 222.688 Amount Norepinephrine 4 mg In 6.772 Sodium Chloride 0.9% 250 ml @ 0.02 MCG/KG/MIN 5. 723 mls/hr IV .Q24H [facility] Rx#:[id number] Norepinephrine 4 mg In 215.916 Sodium Chloride 0.9% 250 ml @ 0.05 MCG/KG/MIN 13. 826 mls/hr IV .[id number] [facility] Rx#:[id number] Output: Urine 745 505 475 Other: Voiding Method Indwelling Catheter Indwelling Catheter Indwelling Catheter Weight 72.575 kg 75.1 kg General: Revealed 78-year-old white male, extremely pleasant, in no distress. HENT: Normocephalic. Atraumatic. Left IJ single-lumen central line Eyes: PERRL. EOMI. No scleral icterus. No injected conjunctiva Neck: Full ROM Chest/Lungs: Clear to auscultation bilaterally. No wheezing, rhonchi, or rales Cardiac: Regular rate, rhythm. No murmurs or rubs Abdomen/GI: Soft, nontender, nondistended. No rebound, guarding, or rigidity. Musculoskeletal: Full ROM Skin: Warm, dry, intact Neurologic: A/Ox3, no weakness, no sensory deficit, no abnormal gait, no coordination deficit Results - Laboratory Findings CBC and BMP: 04/09/19 04:55 04/09/19 04:55 Abnormal lab findings: Abnormal Labs 04/08/19 04/08/19 04/08/19 15:37 15:37 15:37 WBC RBC Hgb Hct MCHC RDW Plt Count Neutrophils # VBG HCO3 Chloride 110 H Glucose 117 H POC Glucose (mg/dL) Plasma Lactic Acid Kiran 2.1 H* Calcium ALT 17 L Troponin I 0.389 H* Total Protein 5.6 L Albumin 3.0 L Lipase 17 L Urine Protein Urine Blood Urine RBC Hyaline Casts Urine Mucus Urine Sperm 04/08/19 04/08/19 04/08/19 15:37 15:37 17:50 WBC 10.9 H RBC 4.08 L Hgb 11.2 L Hct 34.8 L MCHC RDW 16.1 H Plt Count 142 L Neutrophils # 9.2 H VBG HCO3 23 L Chloride Glucose POC Glucose (mg/dL) Plasma Lactic Acid Kiran Calcium ALT Troponin I Total Protein Albumin Lipase Urine Protein 2+ H Urine Blood Moderate H Urine RBC >182 H Hyaline Casts 3 H Urine Mucus Rare H Urine Sperm Occasional H 04/08/19 04/08/19 04/09/19 20:47 22:03 04:55 WBC RBC 3.96 L Hgb 10.2 L Hct 33.3 L MCHC 30.8 L RDW Plt Count 145 L Neutrophils # VBG HCO3 Chloride Glucose POC Glucose (mg/dL) 116 H Plasma Lactic Acid Kiran Calcium ALT Troponin I 1.820 H* Total Protein Albumin Lipase Urine Protein Urine Blood Urine RBC Hyaline Casts Urine Mucus Urine Sperm 04/09/19 04/09/19 04:55 04:55 WBC RBC Hgb Hct MCHC RDW Plt Count Neutrophils # VBG HCO3 Chloride 110 H Glucose POC Glucose (mg/dL) Plasma Lactic Acid Kiran Calcium 7.9 L ALT Troponin I 1.040 H* Total Protein Albumin Lipase Urine Protein Urine Blood Urine RBC Hyaline Casts Urine Mucus Urine Sperm - Diagnostic Findings Chest x-ray: image reviewed (Mild interstitial edema is suspected.) Additional studies: CT of the chest abdomen and pelvis showed interstitial fibrosis, pulmonary emphysema, small pleural effusions, atelectasis, and 5.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 Assessment and Plan Assessment: Impression: 1 anesthetic induced hypotension, doubt non-ST elevation myocardial infarction, however cardiac consultation was initiated. 2 bladder cancer with hematuria and incontinence. Patient will eventually require TURBT in the future. 3 history of multiple comorbidities including coronary artery disease, previous CABG, obstructive sleep apnea syndrome, chronic obstructive pulmonary disease, GERD without esophagitis, hyperlipidemia, Recommendation: Taper and discontinue norepinephrine, it will be titrated to a mean arterial pressure of 65, resume cardiac diet, cardiology to see on consultation, if the patient tolerates being off norepinephrine for the next 24 hours, then consider discharging the patient home. We'll continue to follow Time with Patient: Greater than 30
--- NOTE | 2019-04-09 14:22 | P.CRDCN ---
History of Present Illness Consult date: 04/09/19 History of present illness: This is a 78-year-old gentleman with history of coronary artery disease with previous bypass surgery who was going to have TURP by Dr. Villanueva yesterday. During induction of anesthesia, patient became hypotensive. He needed a epinephrine infusion and subsequently was sent to emergency room. In the emergency room, initially patient was started on dopamine and subsequently changed to Levophed. He was also given IV fluids. However, patient developed a evidence of pulmonary congestion and the fluids were cut back. Patient denied any chest pains. He does complain of mild shortness of breath. His urine output is reasonable. His EKGs did not reveal any acute changes. However, his troponin values showed findings consistent with type II non-STEMI. Patient was very active physically until about a year ago. Over the last one year. Patient has been having difficulty breathing and fatigue with mild exertional activities. Patient has been restricting his activities. He claims he might have had a stress test about a year ago by his own brusher. We'll don't have the details at this time. At the time of my examination patient is not in any acute distress. He is Levophed and his blood pressures in the range of 90- 95 systolic. His maintaining sinus rhythm. Patient is could have an echocardiogram and BNP levels. Further recommendations depend upon the critical course and findings on the about tests. Review of Systems As per the chart Past Medical History Past Medical History: Coronary Artery Disease (CAD), Cancer, Chest Pain / Angina, COPD, GERD/Reflux, Hyperlipidemia, Myocardial Infarction (OK), Osteoarthritis (OA), Pneumonia, Prostate Disorder, Sleep Apnea/CPAP/BIPAP, Thyroid Disorder Additional Past Medical History / Comment(s): BACK PAIN,herniated disc, pinched nerves,emphysema, hemorrhoids,skin cancer, walt cataracts-had sx, thin skin prone to bruises/skin tears. Last Myocardial Infarction Date:: unk History of Any Multi-Drug Resistant Organisms: None Reported Past Surgical History: Coronary Bypass/CABG Additional Past Surgical History / Comment(s): cataracts, 3 vessel cabg, past peg tube since removed." lizbet in penis", hemorrhoids, ?egd. pmh : lap heller myotomy Past Anesthesia/Blood Transfusion Reactions: No Reported Reaction Past Psychological History: No Psychological Hx Reported Additional Psychological History / Comment(s): pt lives with his [address]nd in apt built onto his sons home. has 3 steps to enter it. pt uses [employer] when up. no outside services. no past [employer] (T/A) service. retires from the [employer] at [employer]. Smoking Status: Current every day smoker Past Alcohol Use History: Rare Additional Past Alcohol Use History / Comment(s): started smoking at age 12- has quit here and there. stated if busy outside or on project will smoke 1 ppd, if just sitting at home smokes 2 ppd. in past drank heavy-quit 36 years ago. Past Drug Use History: None Reported - Past Family History Mother Family Medical History: Cancer Additional Family Medical History / Comment(s): breast cancer Sister(s) Family Medical History: Cancer Additional Family Medical History / Comment(s): colon cancer Father History Unknown: Yes Additional Family Medical History / Comment(s): pt's father when pt was 3 years old. Medications and Allergies Home Medications Medication Instructions Recorded Confirmed Type Atorvastatin [Lipitor] 20 mg PO HS 05/09/17 04/08/19 History Isosorbide Mononitrate ER [Imdur] 30 mg PO DAILY 05/09/17 04/08/19 History Levothyroxine Sodium [Synthroid] 112 mcg PO DAILY 05/09/17 04/08/19 History Prasugrel [Effient] 10 mg PO DAILY 05/09/17 04/08/19 History Sertraline [Zoloft] 50 mg PO DAILY 05/09/17 04/08/19 History Aspirin 325 mg PO DAILY 02/20/19 04/08/19 History Tolterodine ER [Detrol LA] 2 mg PO DAILY 02/20/19 04/08/19 History Ipratropium-Albuterol Nebulize 3 ml INHALATION RT-TID 03/29/19 04/08/19 History [Duoneb 0.5 mg-3 mg/3 ml Soln] Montelukast [Singulair] 10 mg PO DAILY 03/29/19 04/08/19 History Budesonide-Formot 160-4.5 Mcg 2 puff INHALATION RT-BID 04/08/19 04/08/19 History [Symbicort 160-4.5 Mcg Inhaler] Cranberry Fruit Concentrate [Azo 250 mg PO DAILY 04/08/19 04/08/19 History Cranberry] Allergies Allergy/AdvReac Type Severity Reaction Status Date / Time iodine Allergy Rash/Hives Verified 04/08/19 17:08 Physical Exam Vitals: Vital Signs Temp Pulse Resp BP Pulse Ox 04/09/19 13:25 82 04/09/19 13:16 84 04/09/19 13:00 84 8 L 95/62 91 L 04/09/19 12:45 20 90/63 95 04/09/19 12:30 80 21 97/64 91 L 04/09/19 12:15 79 23 98/61 91 L 04/09/19 12:00 85 30 H 102/71 91 L 04/09/19 11:45 80 21 106/67 90 L 04/09/19 11:30 80 21 100/66 91 L 04/09/19 11:15 80 19 93/61 94 L 04/09/19 11:00 88 16 98/73 92 L 04/09/19 10:45 77 19 103/65 92 L 04/09/19 10:30 87 21 93/63 93 L 04/09/19 10:15 81 20 90 L 04/09/19 10:00 79 18 97/64 90 L 04/09/19 09:45 84 18 95/63 92 L 04/09/19 09:30 87 17 91/62 90 L 04/09/19 09:15 83 30 H 98/63 91 L 04/09/19 09:00 90 16 99/64 90 L 04/09/19 08:45 107 H 21 72/49 94 L 04/09/19 08:30 87 28 H 88/60 90 L 04/09/19 08:15 86 15 112/72 90 L 04/09/19 08:00 90 14 87/61 91 L 04/09/19 07:58 90 04/09/19 07:45 93 19 91/62 91 L 04/09/19 07:43 84 96 04/09/19 07:30 83 13 96/67 90 L 04/09/19 07:15 91 24 94/65 90 L 04/09/19 07:00 82 18 94/65 94 L 04/09/19 06:30 82 24 103/53 92 L 04/09/19 06:00 91 20 94/60 95 04/09/19 05:30 82 20 94/65 95 04/09/19 05:00 86 18 93/65 94 L 04/09/19 04:30 86 16 91/63 95 04/09/19 04:00 97.9 F 88 25 H 93/66 95 04/09/19 03:30 97 12 93/65 94 L 04/09/19 03:00 82 14 94/61 94 L 04/09/19 02:30 76 12 95/66 95 04/09/19 02:00 90 12 97/66 92 L 04/09/19 01:45 87 12 95/67 94 L 04/09/19 01:30 90 19 99/63 93 L 04/09/19 01:15 86 14 95/65 93 L 04/09/19 01:00 87 15 96/66 92 L 04/09/19 00:45 87 18 96/63 92 L 04/09/19 00:30 89 18 92/64 92 L 04/09/19 00:15 90 18 92/62 95 04/09/19 00:00 97.7 F 88 14 96/65 94 L 04/08/19 23:45 88 14 97/65 93 L 04/08/19 23:38 83 16 97/60 93 L 04/08/19 23:30 87 14 93/65 93 L 04/08/19 23:15 89 18 95/68 94 L 04/08/19 23:00 89 18 95/64 94 L 04/08/19 22:45 90 12 94/63 94 L 04/08/19 22:30 90 12 93/64 93 L 04/08/19 22:15 88 18 88/64 92 L 04/08/19 22:00 86 14 92/67 93 L 04/08/19 21:45 88 23 91/60 96 04/08/19 21:37 18 04/08/19 21:30 84 12 102/76 94 L 04/08/19 21:15 116 H 22 103/73 96 04/08/19 21:14 112 H 04/08/19 21:09 111 H 04/08/19 21:00 97.6 F 102 H 12 103/77 94 L 04/08/19 20:46 92 30 H 93 L 04/08/19 20:20 91 21 93/69 95 04/08/19 20:10 98 35 H 99/71 95 04/08/19 20:00 92 24 104/74 94 L 04/08/19 19:50 91 13 104/74 95 04/08/19 19:40 29 H 103/76 96 04/08/19 19:30 90 22 109/71 95 04/08/19 19:20 95 26 H 109/71 96 04/08/19 19:10 28 H 104/70 95 04/08/19 19:00 93 28 H 107/77 95 04/08/19 18:54 98 18 107/77 93 L 04/08/19 18:50 104 H 15 107/77 96 04/08/19 18:40 22 99/74 96 04/08/19 18:30 92 19 104/73 94 L 04/08/19 18:20 95 21 104/73 94 L 04/08/19 18:10 122 H 6 L 110/78 94 L 04/08/19 18:00 114 H 3 L 106/77 96 04/08/19 17:50 102 H 13 96/70 80 L 04/08/19 17:40 101 H 22 103/74 96 04/08/19 17:30 96 28 H 107/81 95 04/08/19 17:29 93 18 107/81 96 04/08/19 17:20 105 H 5 L 107/81 97 04/08/19 17:10 99 14 95 04/08/19 17:00 104/74 04/08/19 16:50 100 28 H 104/74 93 L 04/08/19 16:45 104/74 04/08/19 16:40 26 H 105/65 94 L 04/08/19 16:30 22 98/64 94 L 04/08/19 16:20 95 21 98/64 92 L 04/08/19 16:10 97 21 105/75 95 04/08/19 16:03 102 H 18 105/75 99 04/08/19 16:00 93 18 94/68 99 04/08/19 15:50 95 14 75/57 97 04/08/19 15:40 94 26 H 85/62 97 04/08/19 15:30 99 24 86/62 95 04/08/19 15:24 98 16 04/08/19 15:20 97.5 F L 98 18 86/42 96 Intake and Output 04/08/19 04/09/19 04/09/19 22:59 06:59 14:59 Intake Total 200 800 562.688 Output Total 745 505 475 Balance -545 295 87.688 Intake: IV 200 800 340 Sodium Chloride 0.9% 1, 200 800 340 000 ml @ 20 mls/hr IV . Q24H LOUIE Rx#:[id number] Intake, IV Titration 222.688 Amount Norepinephrine 4 mg In 6.772 Sodium Chloride 0.9% 250 ml @ 0.02 MCG/KG/MIN 5. 723 mls/hr IV .Q24H LOUIE Rx#:[id number] Norepinephrine 4 mg In 215.916 Sodium Chloride 0.9% 250 ml @ 0.05 MCG/KG/MIN 13. 826 mls/hr IV .[id number] ONE Rx#:[id number] Output: Urine 745 505 475 Other: Voiding Method Indwelling Catheter Indwelling Catheter Indwelling Catheter Weight 72.575 kg 75.1 kg GENERAL EXAM: Patient is alert and oriented and doesn't appear to be in any acute distress HEENT: Normocephalic. Normal reaction of pupils, equal size, normal range of extraocular motion. No erythema or exudates in the throat. NECK: No masses, no nuchal rigidity. CHEST: No chest wall deformity. LUNGS: Equal air entry with no crackles or wheeze. HEART: S1 and S2 normal. Distant heart sounds ABDOMEN: No hepatosplenomegaly, normal bowel sounds, no guarding or rigidity. SKIN: No rashes CENTRAL NERVOUS SYSTEM: No focal deficits. EXTREMITIES: No cyanosis, clubbing or edema. Results 04/09/19 04:55 04/09/19 04:55 Cardiac Enzymes 04/08/19 04/08/19 04/08/19 Range/Units 15:37 15:37 22:03 AST 17 (17-59) U/L Troponin I 0.389 H* 1.820 H* (0.000-0.034) ng/mL 04/09/19 Range/Units 04:55 AST (17-59) U/L Troponin I 1.040 H* (0.000-0.034) ng/mL CBC 04/08/19 04/09/19 Range/Units 15:37 04:55 WBC 10.9 H 10.3 (3.8-10.6) k/uL RBC 4.08 L 3.96 L (4.30-5.90) m/uL Hgb 11.2 L 10.2 L (13.0-17.5) gm/dL Hct 34.8 L 33.3 L (39.0-53.0) % Plt Count 142 L 145 L (150-450) k/uL Comprehensive Metabolic Panel 04/08/19 04/09/19 Range/Units 15:37 04:55 Sodium 139 138 (137-145) mmol/L Potassium 3.7 4.0 (3.5-5.1) mmol/L Chloride 110 H 110 H (98-107) mmol/L Carbon Dioxide 23 23 (22-30) mmol/L BUN 15 15 (9-20) mg/dL Creatinine 0.85 0.71 (0.66-1.25) mg/dL Glucose 117 H 99 (74-99) mg/dL Calcium 8.5 7.9 L (8.4-10.2) mg/dL Unconjugated Bilirubin 0.8 (0.0-1.1) mg/dL AST 17 (17-59) U/L ALT 17 L (21-72) U/L Alkaline Phosphatase 97 (38-126) U/L Total Protein 5.6 L (6.3-8.2) g/dL Albumin 3.0 L (3.5-5.0) g/dL Current Medications Generic Name Dose Route Start Last Admin Trade Name Freq PRN Reason Stop Dose Admin Acetaminophen 650 mg 04/08/19 17:55 Tylenol Tab PO Q4HR PRN Fever and/or Mild Pain Albuterol/Ipratropium 3 ml 04/08/19 20:00 04/09/19 13:16 Duoneb 0.5 Mg-3 Mg/3 Ml Soln INHALATION 3 ml RT-TID LOUIE Administration Aspirin 325 mg 04/08/19 18:00 04/09/19 09:52 Aspirin PO 325 mg DAILY LOUIE Administration Atorvastatin Calcium 20 mg 04/08/19 21:00 04/08/19 23:16 Lipitor PO 20 mg HS LOUIE Administration Budesonide/Formoterol Fumarate 2 puff 04/08/19 20:00 04/09/19 07:43 Symbicort 160-4.5 Mcg Inhaler INHALATION 2 puff RT-BID LOUIE Administration Sodium Chloride 1,000 mls @ 20 mls/hr 04/08/19 18:00 04/09/19 08:40 Saline 0.9% IV 100 mls/hr .Q24H LOUIE Administration Norepinephrine Bitartrate 4 mg 254 mls @ 5.723 mls/hr 04/09/19 11:15 04/09/19 12:48 / Sodium Chloride IV 0 mcg/kg/min .Q24H LOUIE 0 mls/hr Titration Protocol 0.02 MCG/KG/MIN Levothyroxine Sodium 112 mcg 04/09/19 06:30 04/09/19 06:21 Synthroid PO 112 mcg DAILY@0630 LOUIE Administration Montelukast Sodium 10 mg 04/09/19 09:00 04/09/19 09:52 Singulair PO 10 mg DAILY LOUIE Administration Naloxone HCl 0.2 mg 04/08/19 17:55 Narcan IV Q2M PRN Opioid Reversal Oxybutynin Chloride 5 mg 04/09/19 09:00 04/09/19 09:52 Ditropan Xl PO 5 mg DAILY LOUIE Administration Prasugrel 10 mg 04/09/19 09:00 04/09/19 10:21 Effient PO 10 mg DAILY LOUIE Administration Sertraline HCl 50 mg 04/09/19 09:00 04/09/19 09:53 Zoloft PO 50 mg DAILY LOUIE Administration Intake and Output 04/08/19 04/09/19 04/09/19 22:59 06:59 14:59 Intake Total 200 800 562.688 Output Total 745 505 475 Balance -545 295 87.688 Intake: IV 200 800 340 Sodium Chloride 0.9% 1, 200 800 340 000 ml @ 20 mls/hr IV . Q24H LOUIE Rx#:[id number] Intake, IV Titration 222.688 Amount Norepinephrine 4 mg In 6.772 Sodium Chloride 0.9% 250 ml @ 0.02 MCG/KG/MIN 5. 723 mls/hr IV .Q24H LOUIE Rx#:[id number] Norepinephrine 4 mg In 215.916 Sodium Chloride 0.9% 250 ml @ 0.05 MCG/KG/MIN 13. 826 mls/hr IV .[id number] ONE Rx#:[id number] Output: Urine 745 505 475 Other: Voiding Method Indwelling Catheter Indwelling Catheter Indwelling Catheter Weight 72.575 kg 75.1 kg 04/09/19 04:55 04/09/19 04:55 EKG Interpretations (text) Sinus rhythm Assessment and Plan (1) History of coronary artery bypass graft Current Visit: Yes Status: Acute Code(s): Z95.1 - PRESENCE OF AORTOCORONARY BYPASS GRAFT SNOMED Code(s): 647964214 (2) Hypotension Current Visit: Yes Status: Acute Code(s): I95.9 - HYPOTENSION, UNSPECIFIED SNOMED Code(s): 52943825 (3) NSTEMI (non-ST elevated myocardial infarction) Current Visit: Yes Status: Acute Code(s): I21.4 - NON-ST ELEVATION (NSTEMI) MYOCARDIAL INFARCTION SNOMED Code(s): 23593893 (4) COPD (chronic obstructive pulmonary disease) Current Visit: Yes Status: Acute Code(s): J44.9 - CHRONIC OBSTRUCTIVE PULMONARY DISEASE, UNSPECIFIED SNOMED Code(s): 24521102 Plan: I'll continue current medical therapy as long as patient is maintaining adequate blood pressure. I will hold any diuretics at this time. We'll get an echocardiogram and BNP levels. Further comminution depend upon the clinical course. We'll resume his medications, once blood pressure is more stable
--- NOTE | 2019-04-09 14:40 | P.HPIM ---
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 Patient had a troponin elevation without any significant chest pain, echocardiogram is being often patient does have elevated troponin up to 1. patient is fever chills no nausea no vomiting. Review of Systems REVIEW OF SYSTEMS: CONSTITUTIONAL: No fever, no malaise, no fatigue. HEENT: No recent visual problems or hearing problems. Denied any sore throat. CARDIOVASCULAR: No chest pain, orthopnea, PND, no palpitations, no syncope. PULMONARY: No shortness of breath, no cough, no hemoptysis. GASTROINTESTINAL: No diarrhea, no nausea, no vomiting, no abdominal pain. NEUROLOGICAL: No headaches, no weakness, no numbness. HEMATOLOGICAL: Denies any bleeding or petechiae. GENITOURINARY: Denies any burning micturition, frequency, or urgency. MUSCULOSKELETAL/RHEUMATOLOGICAL: Denies any joint pain, swelling, or any muscle pain. ENDOCRINE: Denies any polyuria or polydipsia. The rest of the 14-point review of systems is negative. Past Medical History Past Medical History: Coronary Artery Disease (CAD), Cancer, Chest Pain / Angina, COPD, GERD/Reflux, Hyperlipidemia, Myocardial Infarction ([place]), Osteoarthritis (OA), Pneumonia, Prostate Disorder, Sleep Apnea/CPAP/BIPAP, Thyroid Disorder Additional Past Medical History / Comment(s): BACK PAIN,herniated disc, pinched nerves,emphysema, hemorrhoids,skin cancer, walt cataracts-had sx, thin skin prone to bruises/skin tears. Last Myocardial Infarction Date:: unk History of Any Multi-Drug Resistant Organisms: None Reported Past Surgical History: Coronary Bypass/CABG Additional Past Surgical History / Comment(s): cataracts, 3 vessel cabg, past peg tube since removed." lizbet in penis", hemorrhoids, ?egd. pmh : lap heller myotomy Past Anesthesia/Blood Transfusion Reactions: No Reported Reaction Past Psychological History: No Psychological Hx Reported Additional Psychological History / Comment(s): pt lives with his [address]nd in apt built onto his sons home. has 3 steps to enter it. pt uses acane when up. no o utside services. no past [employer] service. retires from the [employer] at [employer]. Smoking Status: Current every day smoker Past Alcohol Use History: Rare Additional Past Alcohol Use History / Comment(s): started smoking at age 12- has quit here and there. stated if busy outside or on project will smoke 1 ppd, if just sitting at home smokes 2 ppd. in past drank heavy-quit 36 years ago. Past Drug Use History: None Reported - Past Family History Mother Family Medical History: Cancer Additional Family Medical History / Comment(s): breast cancer Sister(s) Family Medical History: Cancer Additional Family Medical History / Comment(s): colon cancer Father History Unknown: Yes Additional Family Medical History / Comment(s): pt's father when pt was 3 years old. Medications and Allergies Home Medications Medication Instructions Recorded Confirmed Type Atorvastatin [Lipitor] 20 mg PO HS 05/09/17 04/08/19 History Isosorbide Mononitrate ER [Imdur] 30 mg PO DAILY 05/09/17 04/08/19 History Levothyroxine Sodium [Synthroid] 112 mcg PO DAILY 05/09/17 04/08/19 History Prasugrel [Effient] 10 mg PO DAILY 05/09/17 04/08/19 History Sertraline [Zoloft] 50 mg PO DAILY 05/09/17 04/08/19 History Aspirin 325 mg PO DAILY 02/20/19 04/08/19 History Tolterodine ER [Detrol LA] 2 mg PO DAILY 02/20/19 04/08/19 History Ipratropium-Albuterol Nebulize 3 ml INHALATION RT-TID 03/29/19 04/08/19 History [Duoneb 0.5 mg-3 mg/3 ml Soln] Montelukast [Singulair] 10 mg PO DAILY 03/29/19 04/08/19 History Budesonide-Formot 160-4.5 Mcg 2 puff INHALATION RT-BID 04/08/19 04/08/19 History [Symbicort 160-4.5 Mcg Inhaler] Cranberry Fruit Concentrate [Azo 250 mg PO DAILY 04/08/19 04/08/19 History Cranberry] Allergies Allergy/AdvReac Type Severity Reaction Status Date / Time iodine Allergy Rash/Hives Verified 04/08/19 17:08 Physical Exam Vitals: Vital Signs Temp Pulse Resp BP Pulse Ox 04/09/19 13:25 82 04/09/19 13:16 84 04/09/19 13:00 84 8 L 95/62 91 L 04/09/19 12:45 20 90/63 95 04/09/19 12:30 80 21 97/64 91 L 04/09/19 12:15 79 23 98/61 91 L 04/09/19 12:00 85 30 H 102/71 91 L 04/09/19 11:45 80 21 106/67 90 L 04/09/19 11:30 80 21 100/66 91 L 04/09/19 11:15 80 19 93/61 94 L 04/09/19 11:00 88 16 98/73 92 L 04/09/19 10:45 77 19 103/65 92 L 04/09/19 10:30 87 21 93/63 93 L 04/09/19 10:15 81 20 90 L 04/09/19 10:00 79 18 97/64 90 L 04/09/19 09:45 84 18 95/63 92 L 04/09/19 09:30 87 17 91/62 90 L 04/09/19 09:15 83 30 H 98/63 91 L 04/09/19 09:00 90 16 99/64 90 L 04/09/19 08:45 107 H 21 72/49 94 L 04/09/19 08:30 87 28 H 88/60 90 L 04/09/19 08:15 86 15 112/72 90 L 04/09/19 08:00 90 14 87/61 91 L 04/09/19 07:58 90 04/09/19 07:45 93 19 91/62 91 L 04/09/19 07:43 84 96 04/09/19 07:30 83 13 96/67 90 L 04/09/19 07:15 91 24 94/65 90 L 04/09/19 07:00 82 18 94/65 94 L 04/09/19 06:30 82 24 103/53 92 L 04/09/19 06:00 91 20 94/60 95 04/09/19 05:30 82 20 94/65 95 04/09/19 05:00 86 18 93/65 94 L 04/09/19 04:30 86 16 91/63 95 04/09/19 04:00 97.9 F 88 25 H 93/66 95 04/09/19 03:30 97 12 93/65 94 L 04/09/19 03:00 82 14 94/61 94 L 04/09/19 02:30 76 12 95/66 95 04/09/19 02:00 90 12 97/66 92 L 04/09/19 01:45 87 12 95/67 94 L 04/09/19 01:30 90 19 99/63 93 L 04/09/19 01:15 86 14 95/65 93 L 04/09/19 01:00 87 15 96/66 92 L 04/09/19 00:45 87 18 96/63 92 L 04/09/19 00:30 89 18 92/64 92 L 04/09/19 00:15 90 18 92/62 95 04/09/19 00:00 97.7 F 88 14 96/65 94 L 04/08/19 23:45 88 14 97/65 93 L 04/08/19 23:38 83 16 97/60 93 L 04/08/19 23:30 87 14 93/65 93 L 04/08/19 23:15 89 18 95/68 94 L 04/08/19 23:00 89 18 95/64 94 L 04/08/19 22:45 90 12 94/63 94 L 04/08/19 22:30 90 12 93/64 93 L 04/08/19 22:15 88 18 88/64 92 L 04/08/19 22:00 86 14 92/67 93 L 04/08/19 21:45 88 23 91/60 96 04/08/19 21:37 18 04/08/19 21:30 84 12 102/76 94 L 04/08/19 21:15 116 H 22 103/73 96 04/08/19 21:14 112 H 04/08/19 21:09 111 H 04/08/19 21:00 97.6 F 102 H 12 103/77 94 L 04/08/19 20:46 92 30 H 93 L 04/08/19 20:20 91 21 93/69 95 04/08/19 20:10 98 35 H 99/71 95 04/08/19 20:00 92 24 104/74 94 L 04/08/19 19:50 91 13 104/74 95 04/08/19 19:40 29 H 103/76 96 04/08/19 19:30 90 22 109/71 95 04/08/19 19:20 95 26 H 109/71 96 04/08/19 19:10 28 H 104/70 95 04/08/19 19:00 93 28 H 107/77 95 04/08/19 18:54 98 18 107/77 93 L 04/08/19 18:50 104 H 15 107/77 96 04/08/19 18:40 22 99/74 96 04/08/19 18:30 92 19 104/73 94 L 04/08/19 18:20 95 21 104/73 94 L 04/08/19 18:10 122 H 6 L 110/78 94 L 04/08/19 18:00 114 H 3 L 106/77 96 04/08/19 17:50 102 H 13 96/70 80 L 04/08/19 17:40 101 H 22 103/74 96 04/08/19 17:30 96 28 H 107/81 95 04/08/19 17:29 93 18 107/81 96 04/08/19 17:20 105 H 5 L 107/81 97 04/08/19 17:10 99 14 95 04/08/19 17:00 104/74 04/08/19 16:50 100 28 H 104/74 93 L 04/08/19 16:45 104/74 04/08/19 16:40 26 H 105/65 94 L 04/08/19 16:30 22 98/64 94 L 04/08/19 16:20 95 21 98/64 92 L 04/08/19 16:10 97 21 105/75 95 04/08/19 16:03 102 H 18 105/75 99 04/08/19 16:00 93 18 94/68 99 04/08/19 15:50 95 14 75/57 97 04/08/19 15:40 94 26 H 85/62 97 04/08/19 15:30 99 24 86/62 95 04/08/19 15:24 98 16 04/08/19 15:20 97.5 F L 98 18 86/42 96 Intake and Output 04/08/19 04/09/19 04/09/19 22:59 06:59 14:59 Intake Total 200 800 562.688 Output Total 745 505 475 Balance -545 295 87.688 Intake: IV 200 800 340 Sodium Chloride 0.9% 1, 200 800 340 000 ml @ 20 mls/hr IV . Q24H [facility] Rx#:[id number] Intake, IV Titration 222.688 Amount Norepinephrine 4 mg In 6.772 Sodium Chloride 0.9% 250 ml @ 0.02 MCG/KG/MIN 5. 723 mls/hr IV .Q24H [facility] Rx#:[id number] Norepinephrine 4 mg In 215.916 Sodium Chloride 0.9% 250 ml @ 0.05 MCG/KG/MIN 13. 826 mls/hr IV .[id number] [facility] Rx#:[id number] Output: Urine 745 505 475 Other: Voiding Method Indwelling Catheter Indwelling Catheter Indwelling Catheter Weight 72.575 kg 75.1 kg PHYSICAL EXAMINATION: GENERAL: The patient is alert and oriented x3, not in any acute distress. Well developed, well nourished. HEENT: Pupils are round and equally reacting to light. EOMI. No scleral icterus. No conjunctival pallor. Normocephalic, atraumatic. No pharyngeal erythema. No thyromegaly. CARDIOVASCULAR: S1 and S2 present. No murmurs, rubs, or gallops. PULMONARY: Chest is clear to auscultation, no wheezing or crackles. ABDOMEN: Soft, nontender, nondistended, normoactive bowel sounds. No palpable organomegaly. MUSCULOSKELETAL: No joint swelling or deformity. EXTREMITIES: No cyanosis, clubbing, or pedal edema. NEUROLOGICAL: Gross neurological examination did not reveal any focal deficits. SKIN: No rashes. Results CBC & Chem 7: 04/09/19 04:55 04/09/19 04:55 Labs: Abnormal Lab Results - Last 24 Hours (Table) 04/08/19 04/08/19 04/08/19 Range/Units 15:37 15:37 15:37 WBC (3.8-10.6) k/uL RBC (4.30-5.90) m/uL Hgb (13.0-17.5) gm/dL Hct (39.0-53.0) % MCHC (31.0-37.0) g/dL RDW (11.5-15.5) % Plt Count (150-450) k/uL Neutrophils # (1.3-7.7) k/uL VBG HCO3 (24-28) mmol/L Chloride 110 H (98-107) mmol/L Glucose 117 H (74-99) mg/dL POC Glucose (mg/dL) (75-99) mg/dL Plasma Lactic Acid Kiran 2.1 H* (0.7-2.0) mmol/L Calcium (8.4-10.2) mg/dL ALT 17 L (21-72) U/L Troponin I 0.389 H* (0.000-0.034) ng/mL Total Protein 5.6 L (6.3-8.2) g/dL Albumin 3.0 L (3.5-5.0) g/dL Lipase 17 L (23-300) U/L Urine Protein (Negative) Urine Blood (Negative) Urine RBC (0-5) /hpf Hyaline Casts (0-2) /lpf Urine Mucus (None) /hpf Urine Sperm (None) /hpf 04/08/19 04/08/19 04/08/19 Range/Units 15:37 15:37 17:50 WBC 10.9 H (3.8-10.6) k/uL RBC 4.08 L (4.30-5.90) m/uL Hgb 11.2 L (13.0-17.5) gm/dL Hct 34.8 L (39.0-53.0) % MCHC (31.0-37.0) g/dL RDW 16.1 H (11.5-15.5) % Plt Count 142 L (150-450) k/uL Neutrophils # 9.2 H (1.3-7.7) k/uL VBG HCO3 23 L (24-28) mmol/L Chloride (98-107) mmol/L Glucose (74-99) mg/dL POC Glucose (mg/dL) (75-99) mg/dL Plasma Lactic Acid Kiran (0.7-2.0) mmol/L Calcium (8.4-10.2) mg/dL ALT (21-72) U/L Troponin I (0.000-0.034) ng/mL Total Protein (6.3-8.2) g/dL Albumin (3.5-5.0) g/dL Lipase (23-300) U/L Urine Protein 2+ H (Negative) Urine Blood Moderate H (Negative) Urine RBC >182 H (0-5) /hpf Hyaline Casts 3 H (0-2) /lpf Urine Mucus Rare H (None) /hpf Urine Sperm Occasional H (None) /hpf 04/08/19 04/08/19 04/09/19 Range/Units 20:47 22:03 04:55 WBC (3.8-10.6) k/uL RBC 3.96 L (4.30-5.90) m/uL Hgb 10.2 L (13.0-17.5) gm/dL Hct 33.3 L (39.0-53.0) % MCHC 30.8 L (31.0-37.0) g/dL RDW (11.5-15.5) % Plt Count 145 L (150-450) k/uL Neutrophils # (1.3-7.7) k/uL VBG HCO3 (24-28) mmol/L Chloride (98-107) mmol/L Glucose (74-99) mg/dL POC Glucose (mg/dL) 116 H (75-99) mg/dL Plasma Lactic Acid Kiran (0.7-2.0) mmol/L Calcium (8.4-10.2) mg/dL ALT (21-72) U/L Troponin I 1.820 H* (0.000-0.034) ng/mL Total Protein (6.3-8.2) g/dL Albumin (3.5-5.0) g/dL Lipase (23-300) U/L Urine Protein (Negative) Urine Blood (Negative) Urine RBC (0-5) /hpf Hyaline Casts (0-2) /lpf Urine Mucus (None) /hpf Urine Sperm (None) /hpf 04/09/19 04/09/19 Range/Units 04:55 04:55 WBC (3.8-10.6) k/uL RBC (4.30-5.90) m/uL Hgb (13.0-17.5) gm/dL Hct (39.0-53.0) % MCHC (31.0-37.0) g/dL RDW (11.5-15.5) % Plt Count (150-450) k/uL Neutrophils # (1.3-7.7) k/uL VBG HCO3 (24-28) mmol/L Chloride 110 H (98-107) mmol/L Glucose (74-99) mg/dL POC Glucose (mg/dL) (75-99) mg/dL Plasma Lactic Acid Kiran (0.7-2.0) mmol/L Calcium 7.9 L (8.4-10.2) mg/dL ALT (21-72) U/L Troponin I 1.040 H* (0.000-0.034) ng/mL Total Protein (6.3-8.2) g/dL Albumin (3.5-5.0) g/dL Lipase (23-300) U/L Urine Protein (Negative) Urine Blood (Negative) Urine RBC (0-5) /hpf Hyaline Casts (0-2) /lpf Urine Mucus (None) /hpf Urine Sperm (None) /hpf Thrombosis Risk Factor Assmnt - Choose All That Apply Any of the Below Risk Factors Present?: Yes Each Factor Represents 1 point: Abnormal pulmonary function (COPD), Medical pt on bed rest Other Risk Factors: Yes Each Risk Factor Represents 2 Points: Central venous access, Patient confined to bed Each Risk Factor Represents 3 Points: Age 75 years or older Other congenital or acquired thrombophilia - If yes, enter type in comment: No Thrombosis Risk Factor Assessment Total Risk Factor Score: 9 Thrombosis Risk Factor Assessment Level: High Risk Assessment and Plan Plan: -Hypertension secondary to anesthetic agent, patient will be continued on Levophed will be enough as tolerated -Elevated troponin and possibility of non-ST elevation microinfarction echocardiogram will be obtained, because of hematuria patient is not on any IV heparin at this time. Cardiology was consulted -Bladder cancer will require cystoscopy eventually -Coronary artery disease -Sleep apnea -Hyperlipidemia -Gastroesophageal reflux disease -Benign prostatic atrophy -Hypothyroidism for above-mentioned chronic medical problems patient will be resumed and c ontinued on appropriate home medications
--- NOTE | 2019-04-09 18:24 | ECHOF ---
Referral Reason:elevated trop MEASUREMENTS -------- HEIGHT: 170.2 cm WEIGHT: 74.8 kg BP: 120/60 RVIDd: 2.8 cm (< 3.3) IVSd: 1.0 cm (0.6 - 1.1) LVIDd: 5.6 cm (3.9 - 5.3) LVPWd: 1.1 cm (0.6 - 1.1) IVSs: 1.2 cm LVIDs: 4.2 cm LVPWs: 1.8 cm LA Diam: 3.9 cm (2.7 - 3.8) LAESV Index (A-L): 33.30 ml/m Ao Diam: 3.4 cm (2.0 - 3.7) AV Cusp: 2.2 cm (1.5 - 2.6) MV EXCURSION: 8.330 mm (> 18.000) MV EF SLOPE: 27 mm/s (70 - 150) EPSS: 1.2 cm MV E Alfred: 1.05 m/s MV DecT: 217 ms MV A Alfred: 1.05 m/s MV E/A Ratio: 1.01 AR PHT: 699 ms RAP: 5.00 mmHg RVSP: 32.37 mmHg FINDINGS -------- Sinus rhythm. This was a technically adequate study. The left ventricular size is normal. There is borderline concentric left ventricular hypertrophy. Overall left ventricular systolic function is moderate-severely impaired with, an EF between 30 - 35 %. Apical anterior LV wall motion is hypokinetic. Apical lateral LV wall motion is hypokinetic. Apical inferior LV wall motion is hypokinetic. Apical septum LV wall motion is hypokinetic. Anterseptal Hypokinesis The right ventricle is normal in size. LA is midly dilated 29-33ml/m2. The right atrium is normal in size. Interatrial and interventricular septum intact. There is mild aortic valve sclerosis. Trace to mild aortic regurgitation. The mitral valve leaflets are mildly thickened. Mild mitral regurgitation is present. Mild tricuspid regurgitation present. Right ventricular systolic pressure is normal at < 35 mmHg. The pulmonic valve was not well visualized. The aortic root size is normal. Normal inferior vena cava with normal inspiratory collapse consistent with estimated right atrial pre ssure of 5 mmHg. There is no pericardial effusion. CONCLUSIONS -------- 1. Sinus rhythm. 2. This was a technically adequate study. 3. The left ventricular size is normal. 4. There is borderline concentric left ventricular hypertrophy. 5. Overall left ventricular systolic function is moderate-severely impaired with, an EF between 30 - 35 %. 6. Apical anterior LV wall motion is hypokinetic. 7. Apical lateral LV wall motion is hypokinetic. 8. Apical inferior LV wall motion is hypokinetic. 9. Apical septum LV wall motion is hypokinetic. 10. Anterseptal Hypokinesis 11. The right ventricle is normal in size. 12. LA is midly dilated 29-33ml/m2. 13. The right atrium is normal in size. 14. Interatrial and interventricular septum intact. 15. There is mild aortic valve sclerosis. 16. Trace to mild aortic regurgitation. 17. The mitral valve leaflets are mildly thickened. 18. Mild mitral regurgitation is present. 19. Mild tricuspid regurgitation present. 20. Right ventricular systolic pressure is normal at < 35 mmHg. 21. The pulmonic valve was not well visualized. 22. The aortic root size is normal. 23. Normal inferior vena cava with normal inspiratory collapse consistent with estimated right atrial pressure of 5 mmHg. 24. There is no pericardial effusion. CAMP RECREATION SPECIALIST: Gale Strickland RDCS
[2019-04-09] MEDS: ATORVASTATIN 20 MG TAB PO SCH (19:54)
[2019-04-09] MEDS: DOCUSATE 100 MG CAP PO PRN (19:54)
[2019-04-09] MEDS: PHENAZOPYRIDINE 200 MG TAB PO SCH (19:54)
[2019-04-10] MEDS: PHENAZOPYRIDINE 200 MG TAB PO SCH ×4 (02:17→22:02)
[2019-04-10] MEDS: SODIUM CHLORIDE 0.9% 1,000 ML IV SCH (02:18)
[2019-04-10] MEDS: DOCUSATE 100 MG CAP PO PRN (07:50)
[2019-04-10] MEDS: LEVOTHYROXINE 112 MCG TAB PO SCH (07:50)
[2019-04-10] MEDS: SYMBICORT 160-4.5 MCG INHALER INHALATION SCH ×2 (07:59→19:31)
[2019-04-10] MEDS: IPRATROPIUM-ALBUTEROL 3 ML NEB INHALATION SCH ×3 (07:59→19:31)
--- NOTE | 2019-04-10 09:30 | P.PN ---
Subjective Progress Note Date: 04/10/19 The patient is still in the ICU after his hypotension from his anesthesia recently. This was discussed with the patient. He understands that he still has to have his bladder tumor resected. He has a indwelling catheter and it is uncomfortable. The nursing staff is requested that it be removed. I have no reason for it to stay in. The exact cause of the hypotension is not clear yet. Objective - Vital Signs Vital signs: Vital Signs Temp 98.3 F 04/10/19 04:00 Pulse 87 04/10/19 07:30 Resp 20 04/10/19 07:30 BP 116/68 04/10/19 07:30 Pulse Ox 90 L 04/10/19 07:30 Intake & Output 04/09/19 04/10/19 04/10/19 18:59 06:59 18:59 Intake Total 982.688 240 390.161 Output Total 880 1285 290 Balance 102.688 -1045 100.161 Weight 74.3 kg Intake: IV 460 240 40 Sodium Chloride 0.9% 1, 460 240 40 000 ml @ 20 mls/hr IV . Q24H [facility] Rx#:[id number] Intake, IV Titration 222.688 0 110.161 Amount Norepinephrine 4 mg In 6.772 0 110.161 Sodium Chloride 0.9% 250 ml @ 0.02 MCG/KG/MIN 5. 723 mls/hr IV .Q24H [facility] Rx#:[id number] Norepinephrine 4 mg In 215.916 Sodium Chloride 0.9% 250 ml @ 0.05 MCG/KG/MIN 13. 826 mls/hr IV .[id number] [facility] Rx#:[id number] Oral 300 240 Output: Urine 880 1285 290 Other: Voiding Method Indwelling Catheter Indwelling Catheter - Labs CBC & Chem 7: 04/09/19 04:55 04/09/19 04:55 Labs: Microbiology - Last 24 Hours (Table) 04/08/19 17:50 Blood Culture - Preliminary Blood No Growth after 24 hours
--- NOTE | 2019-04-10 09:33 | PN ---
PROGRESS NOTE Carolee is an 78-year-old gentleman with history of coronary artery disease, status post CABG who was admitted to the intensive care unit following an episode of hypotension after he received propofol for a cystoscopy. He remains on Levophed at this time and still has episodes of hypotension. He is otherwise free of symptoms. He denies chest pain, difficulty in breathing, palpitations. He is currently on aspirin, Lipitor, and Effient. His history is somewhat unclear whether he had an angioplasty within the recent past or not. He does not see a quality assurance lab technician locally. PHYSICAL EXAMINATION: On exam, he appears comfortable at rest. Heart rate is 87 beats per minute. Blood pressure is 102/74, respiratory rate is 18. Chest exam reveals diminished air entry at the bases. Heart exam reveals first and second heart sounds. Has an ejection systolic murmur in the aortic area. Abdomen is soft. Examination of extremities did not reveal any edema. LABS: Labs show a hemoglobin of 10.2, potassium is 4. Creatinine is 0.7. Troponin is elevated at 1.8 and 1. BNP is 6590. ASSESSMENT: 1. Non ST-segment elevation myocardial infarction secondary to supply demand mismatch associated with hypotension. 2. Coronary artery disease, status post CABG. 3. Ischemic cardiomyopathy with fluid overload. 4. Hypotension. PLAN: I will continue the patient on Levophed. Once the blood pressure improves, we will resume his medications. Patient does not seem to be in overt heart failure. Clinically he is doing well, does not really have any symptoms. MMODL / IJN: [id number] /
[2019-04-10] MEDS: ASPIRIN 325 MG TAB PO SCH (10:47)
[2019-04-10] MEDS: MONTELUKAST 10 MG TAB PO SCH (10:47)
[2019-04-10] MEDS: SERTRALINE 50 MG TAB PO SCH (10:47)
[2019-04-10] MEDS: OXYBUTYNIN XL 5 MG TAB.ER.24 PO SCH (10:48)
[2019-04-10] MEDS: PRASUGREL 10 MG TAB PO SCH (10:48)
--- NOTE | 2019-04-10 13:06 | P.PN ---
Subjective Progress Note Date: 04/10/19 Principal diagnosis: Anesthesia induced hypotension This is an 78-year-old white male with history of multiple medical problems including coronary artery disease, previous CABG, bladder cancer, patient was recently complaining of hematuria and incontinence. Patient was scheduled to have TUR BT by Dr. Calvert, however upon anesthetic induction, patient developed profound hypotension, received epinephrine by anesthesia, the surgery was never done, it was canceled, and the patient was transferred to the ER at [facility]. Patient was initially placed on dopamine, however he was switched to a low dose of norepinephrine, transferred to the intensive care unit, received fluids at a chest x-ray showed some mild interstitial edema. Hence fluids were discontinued this morning, and recommended tapering and discontinuing norepinephrine earlier this morning upon my evaluation. During my evaluation, the patient was asymptomatic. He had no chest pain no cough no wheezing no shortness of breath no nausea no vomiting no abdominal pain he does have chronic history of hematuria and incontinence. And that is related to his underlying bladder cancer which was diagnosed by urology. Labs this morning showed relatively normal CBC except for hemoglobin of 10.2. Normal electrolytes, normal renal profile, however his troponin was noted to be elevated at 1.820 on admission and it is 1.040 this morning, hence I recommended cardiac evaluation. 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 Reevaluated today on 04/10/2019, patient remains in the ICU, remains on norepinephrine small dose at 0.03 units per kilo per minutes. His mean arterial pressure is in the high 60s and low 70s, hence I have a strong feeling that we can taper down the norepinephrine, and possibly stop it by the end of the day. Patient is off diuretics, he is known to have history of severe LV dysfunction. And ischemic cardiomyopathy. Denies any shortness of breath, no cough, no wheezing, denies any fever or chills or hemoptysis. CBC is relatively normal electrolytes are normal renal profile is normal. His BNP level was elevated on admission, however I'm reluctant to give the patient diuretics because of his marginal blood pressure. Objective - Vital Signs Vital signs: Vital Signs Temp 98.5 F 04/10/19 08:00 Pulse 85 04/10/19 12:55 Resp 22 04/10/19 12:30 BP 89/68 04/10/19 12:30 Pulse Ox 90 L 04/10/19 12:30 Intake & Output 04/09/19 04/10/19 04/10/19 18:59 06:59 18:59 Intake Total 982.688 240 505.069 Output Total 880 1285 890 Balance 102.688 -1045 -384.931 Weight 74.3 kg Intake: IV 460 240 120 Sodium Chloride 0.9% 1, 460 240 120 000 ml @ 20 mls/hr IV . Q24H [facility] Rx#:[id number] Intake, IV Titration 222.688 0 145.069 Amount Norepinephrine 4 mg In 6.772 0 145.069 Sodium Chloride 0.9% 250 ml @ 0.02 MCG/KG/MIN 5. 723 mls/hr IV .Q24H [facility] Rx#:[id number] Norepinephrine 4 mg In 215.916 Sodium Chloride 0.9% 250 ml @ 0.05 MCG/KG/MIN 13. 826 mls/hr IV .[id number] [facility] Rx#:[id number] Oral 300 240 Output: Urine 880 1285 890 Other: Voiding Method Indwelling Catheter Indwelling Catheter # Bowel Movements 1 - Exam General: Revealed 78-year-old white male, extremely pleasant, in no distress. HENT: Normocephalic. Atraumatic. Left IJ single-lumen central line Eyes: PERRL. EOMI. No scleral icterus. No injected conjunctiva Neck: Full ROM Chest/Lungs: Clear to auscultation bilaterally. No wheezing, rhonchi, or rales Cardiac: Regular rate, rhythm. No murmurs or rubs Abdomen/GI: Soft, nontender, nondistended. No rebound, guarding, or rigidity. Musculoskeletal: Full ROM Skin: Warm, dry, intact Neurologic: A/Ox3, no weakness, no sensory deficit, no abnormal gait, no coordination deficit - Labs CBC & Chem 7: 04/09/19 04:55 04/09/19 04:55 Labs: Microbiology - Last 24 Hours (Table) 04/08/19 17:50 Blood Culture - Preliminary Blood No Growth after 24 hours Assessment and Plan Assessment: Impression: 1 anesthetic induced hypotension, doubt non-ST elevation myocardial infarction, being addressed by cardiology. 2 bladder cancer with hematuria and incontinence. Patient will eventually require TURBT in the future. 3 history of multiple comorbidities including coronary artery disease, previous CABG, obstructive sleep apnea syndrome, chronic obstructive pulmonary disease, GERD without esophagitis, hyperlipidemia, severe ischemic cardiomyopathy and LV dysfunction. Recommendation: Taper and discontinue norepinephrine, maintain a mean arterial pressure in the low 60s, continue to hold on diuretics for now, however the patient develops any worsening shortness of breath, may have to be given a dose of Lasix. Continue to monitor in the ICU, not quite ready for any discharge planning. Time with Patient: Less than 30
--- NOTE | 2019-04-10 13:31 | P.PN ---
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 Patient had a troponin elevation without any significant chest p ain, echocardiogram is being often patient does have elevated troponin up to 1. patient is fever chills no nausea no vomiting. 04/10/2019 Patient is on very minimal dose of norepinephrine although we are not able to get rid of. Patient will be given a dose of midodrine and probably get rid of for norepinephrine. Once his blood pressure stabilizes patient will require Lasix. Once his respiratory status improves patient may require cardiac catheterization patient had an echo cardiac exam which showed decreased ejection fraction which is new with the EF of 30-35% along with significant wall motion abnormalities. Patient may have stress-induced of cardio myopathy as well or supply demand mismatch. We'll discuss with cardiology nurse practitioner regarding this. Patient may need cystoscopy down the line was these issues are addressed. Constitutional: Denied any fatigue denied any fever. Cardio vascular: denied any chest pain, palpitations Gastrointestinal denied any nausea vomiting Pulmonary: Denied any shortness of breath cough Neurologic denied any new focal deficits All inpatient medications were reviewed and appropriate changes in these medications as dictated in the interval history and assessment and plan. Objective - Vital Signs Vital signs: Vital Signs Temp 98.5 F 04/10/19 08:00 Pulse 86 04/10/19 13:03 Resp 22 04/10/19 12:30 BP 89/68 04/10/19 12:30 Pulse Ox 90 L 04/10/19 12:30 Intake & Output 04/09/19 04/10/19 04/10/19 18:59 06:59 18:59 Intake Total 982.688 240 505.069 Output Total 880 1285 890 Balance 102.688 -1045 -384.931 Weight 74.3 kg Intake: IV 460 240 120 Sodium Chloride 0.9% 1, 460 240 120 000 ml @ 20 mls/hr IV . Q24H [facility] Rx#:[id number] Intake, IV Titration 222.688 0 145.069 Amount Norepinephrine 4 mg In 6.772 0 145.069 Sodium Chloride 0.9% 250 ml @ 0.02 MCG/KG/MIN 5. 723 mls/hr IV .Q24H [facility] Rx#:[id number] Norepinephrine 4 mg In 215.916 Sodium Chloride 0.9% 250 ml @ 0.05 MCG/KG/MIN 13. 826 mls/hr IV .[id number] ONE Rx#:[id number] Oral 300 240 Output: Urine 880 1285 890 Other: Voiding Method Indwelling Catheter Indwelling Catheter # Bowel Movements 1 - Exam PHYSICAL EXAMINATION: GENERAL: The patient is alert and oriented x3, not in any acute distress. Well developed, well nourished. HEENT: Pupils are round and equally reacting to light. EOMI. No scleral icterus. No conjunctival pallor. Normocephalic, atraumatic. No pharyngeal erythema. No thyromegaly. CARDIOVASCULAR: S1 and S2 present. No murmurs, rubs, or gallops. PULMONARY: Chest is clear to auscultation, no wheezing or crackles. ABDOMEN: Soft, nontender, nondistended, normoactive bowel sounds. No palpable organomegaly. MUSCULOSKELETAL: No joint swelling or deformity. EXTREMITIES: No cyanosis, clubbing, or pedal edema. NEUROLOGICAL: Gross neurological examination did not reveal any focal deficits. SKIN: No rashes. - Labs CBC & Chem 7: 04/09/19 04:55 04/09/19 04:55 Labs: Microbiology - Last 24 Hours (Table) 04/08/19 17:50 Blood Culture - Preliminary Blood No Growth after 24 hours Assessment and Plan Plan: -Hypotension secondary to anesthetic agent, patient will be continued on Levophed, wean off as tolerated as mentioned above. -Elevated troponin and possibility of non-ST elevation myocardial echocardiogram cardiac exam results as mentioned above, patient may have stress-induced cardio myopathy -Congestive heart failure chronic systolic dysfunction or acute systolic dysfunction with acute exacerbation. Because of low blood pressure patient is not being started on Lasix once his blood pressure stabilizes patient will require Lasix -Bladder cancer will require cystoscopy eventually -Coronary artery disease -Sleep apnea -Hyperlipidemia -Gastroesophageal reflux disease -Benign prostatic atrophy -Hypothyroidism for above-mentioned chronic medical problems patient will be resumed and continued on appropriate home medications
[2019-04-10] MEDS: MIDODRINE 5 MG TAB PO SCH (17:22)
[2019-04-10] MEDS: ATORVASTATIN 20 MG TAB PO SCH (22:02)
[2019-04-11] MEDS: NOREPINEPHRINE 4 MG in SODIUM CHLORIDE 0.9% 250 ML IV SCH (01:27)
[2019-04-11] MEDS: SODIUM CHLORIDE 0.9% 1,000 ML IV SCH (01:38)
[2019-04-11 05:36] LABS: Basophils % (A) 0 %; Eosinophils # (A) 0.1 k/uL (0-0.7); Eosinophils % (A) 1 %; HCT 32.1 % (39.0-53.0); HGB 10.2 gm/dL (13.0-17.5); Lymphocytes # (A) 1.3 k/uL (1.0-4.8); Lymphocytes % (A) 11 %; MCH 26.5 pg (25.0-35.0); MCHC 31.8 g/dL (31.0-37.0); MCV 83.3 fL (80.0-100.0); Mean Platelet Volume 7.2; Monocytes # (A) 0.8 k/uL (0-1.0); Monocytes % (A) 6 %; Neutrophils # (A) 9.6 k/uL (1.3-7.7); Neutrophils % (A) 81 %; Platelet Count 150 k/uL (150-450); RBC 3.85 m/uL (4.30-5.90); RDW 15.7 % (11.5-15.5); WBC 11.9 k/uL (3.8-10.6)
[2019-04-11 05:41] LABS: ALT 18 U/L (21-72); AST 14 U/L (17-59); African American GFR (CKD) >90 (>60 ml/min/1.73 sqM); Albumin 2.5 g/dL (3.5-5.0); Alkaline Phosphatase 84 U/L (38-126); Anion Gap 6 mmol/L; Blood Urea Nitrogen 11 mg/dL (9-20); Carbon Dioxide 23 mmol/L (22-30); Chloride 106 mmol/L (98-107); Glucose 92 mg/dL (74-99); Potassium 3.6 mmol/L (3.5-5.1); Sodium 135 mmol/L (137-145); Total Bilirubin 1.3 mg/dL (0.2-1.3)
[2019-04-11] MEDS: MIDODRINE 5 MG TAB PO SCH ×3 (06:57→17:15)
[2019-04-11] MEDS: LEVOTHYROXINE 112 MCG TAB PO SCH (06:57)
[2019-04-11] MEDS: SYMBICORT 160-4.5 MCG INHALER INHALATION SCH ×2 (08:34→19:41)
[2019-04-11] MEDS: IPRATROPIUM-ALBUTEROL 3 ML NEB INHALATION SCH ×3 (08:34→19:41)
[2019-04-11] MEDS: MONTELUKAST 10 MG TAB PO SCH (10:10)
[2019-04-11] MEDS: ASPIRIN 325 MG TAB PO SCH (10:10)
[2019-04-11] MEDS: SERTRALINE 50 MG TAB PO SCH (10:16)
[2019-04-11] MEDS: OXYBUTYNIN XL 5 MG TAB.ER.24 PO SCH (10:16)
[2019-04-11] MEDS: PHENAZOPYRIDINE 200 MG TAB PO SCH ×3 (10:17→20:49)
[2019-04-11] MEDS: PRASUGREL 10 MG TAB PO SCH (10:26)
--- NOTE | 2019-04-11 12:56 | PN ---
PROGRESS NOTE An 78-year-old gentleman who was admitted to hospital with hypotension following cystoscopy. His blood pressures are better controlled now. He is on aspirin, Lipitor, and Effient. PHYSICAL EXAMINATION: On exam, heart rate is 80 beats per minute, blood pressure is 107/64, respiratory rate is 18. Chest exam reveals good air entry bilaterally. Heart exam reveals first and second heart sounds. No gallop. Examination of extremities did not reveal any edema. LABS: Labs show a hemoglobin of 10.2, potassium is 3.6. ASSESSMENT: 1. Hypotension in the perioperative setting. 2. Ylu-GT-tdcbeav elevation myocardial infarction secondary to supply demand mismatch. 3. Coronary artery disease, status post coronary artery bypass grafting. 4. Ischemic cardiomyopathy. PLAN: I do not have any old records on him. I will obtain them and see if his LV dysfunction is new or old. On discharge, he will follow up with Dr. Kilpatrick and we may consider either a stress test or a cardiac cath. Currently continue the supportive care. MMODL / IJN: [id number] /
--- NOTE | 2019-04-11 13:00 | P.PN ---
Subjective Progress Note Date: 04/11/19 Principal diagnosis: Anesthesia induced hypotension This is an 78-year-old white male with history of multiple medical problems including coronary artery disease, previous CABG, bladder cancer, patient was recently complaining of hematuria and incontinence. Patient was scheduled to have TUR BT by Dr. Calvert, however upon anesthetic induction, patient developed profound hypotension, received epinephrine by anesthesia, the surgery was never done, it was canceled, and the patient was transferred to the ER at [facility]. Patient was initially placed on dopamine, however he was switched to a low dose of norepinephrine, transferred to the intensive care unit, received fluids at a chest x-ray showed some mild interstitial edema. Hence fluids were discontinued this morning, and recommended tapering and discontinuing norepinephrine earlier this morning upon my evaluation. During my evaluation, the patient was asymptomatic. He had no chest pain no cough no wheezing no shortness of breath no nausea no vomiting no abdominal pain he does have chronic history of hematuria and incontinence. And that is related to his underlying bladder cancer which was diagnosed by urology. Labs this morning showed relatively normal CBC except for hemoglobin of 10.2. Normal electrolytes, normal renal profile, however his troponin was noted to be elevated at 1.820 on admission and it is 1.040 this morning, hence I recommended cardiac evaluation. Patient normally sees a physician practice manager out of [place]. Reevaluated today on 04/10/2019, patient remains in the ICU, remains on norepinephrine small dose at 0.03 units per kilo per minutes. His mean arterial pressure is in the high 60s and low 70s, hence I have a strong feeling that we can taper down the norepinephrine, and possibly stop it by the end of the day. Patient is off diuretics, he is known to have history of severe LV dysfunction. And ischemic cardiomyopathy. Denies any shortness of breath, no cough, no wheezing, denies any fever or chills or hemoptysis. CBC is relatively normal electrolytes are normal renal profile is normal. His BNP level was elevated on admission, however I'm reluctant to give the patient diuretics because of his marginal blood pressure. Reevaluated today on 04/11/2019, patient remains in the ICU, he is off norepinephrine since 4:30 PM yesterday. A doing well, relatively asymptomatic, maintained on 2 L nasal cannula, O2 saturation is in the 93% range, patient is on home O2 at home. Patient is doing great, asymptomatic, no cough no wheezing no shortness of breath, and his blood pressure seems to be under control. Patient is basically ready to be discharged home, and he will need a close follow-up with urology. Objective - Vital Signs Vital signs: Vital Signs Temp 97.5 F L 04/11/19 08:00 Pulse 81 04/11/19 10:00 Resp 19 04/11/19 10:00 BP 107/64 04/11/19 10:00 Pulse Ox 87 L 04/11/19 10:00 Intake & Output 04/10/19 04/11/19 04/11/19 18:59 06:59 18:59 Intake Total 649.392 240 380 Output Total 1415 1015 275 Balance -765.608 -775 105 Weight 74.3 kg 71.5 kg Intake: IV 240 240 80 Sodium Chloride 0.9% 1, 240 240 80 000 ml @ 20 mls/hr IV . Q24H [facility] Rx#:[id number] Intake, IV Titration 169.392 Amount Norepinephrine 4 mg In 169.392 Sodium Chloride 0.9% 250 ml @ 0.02 MCG/KG/MIN 5. 723 mls/hr IV .Q24H [facility] Rx#:[id number] Oral 240 300 Output: Urine 1415 1015 275 Other: Voiding Method Indwelling Catheter Indwelling Catheter Indwelling Catheter # Bowel Movements 1 1 - Exam General: Revealed 78-year-old white male, asymptomatic, in no distress. HENT: Normocephalic. Atraumatic. Left IJ single-lumen central line Eyes: PERRL. EOMI. No scleral icterus. No injected conjunctiva Neck: Full ROM Chest/Lungs: Clear to auscultation bilaterally. No wheezing, rhonchi, or rales Cardiac: Regular rate, rhythm. No murmurs or rubs Abdomen/GI: Soft, nontender, nondistended. No rebound, guarding, or rigidity. Musculoskeletal: Full ROM Skin: Warm, dry, intact Neurologic: A/Ox3, no weakness, no sensory deficit, no abnormal gait, no coordination deficit - Labs CBC & Chem 7: 04/11/19 05:00 04/11/19 05:00 Labs: Abnormal Lab Results - Last 24 Hours (Table) 04/11/19 04/11/19 Range/Units 05:00 05:00 WBC 11.9 H (3.8-10.6) k/uL RBC 3.85 L (4.30-5.90) m/uL Hgb 10.2 L (13.0-17.5) gm/dL Hct 32.1 L (39.0-53.0) % RDW 15.7 H (11.5-15.5) % Neutrophils # 9.6 H (1.3-7.7) k/uL Sodium 135 L (137-145) mmol/L Calcium 8.0 L (8.4-10.2) mg/dL AST 14 L (17-59) U/L ALT 18 L (21-72) U/L Total Protein 5.0 L (6.3-8.2) g/dL Albumin 2.5 L (3.5-5.0) g/dL Microbiology - Last 24 Hours (Table) 04/08/19 17:50 Blood Culture - Preliminary Blood No Growth after 48 hours Assessment and Plan Assessment: Impression: 1 anesthetic induced hypotension, doubt non-ST elevation myocardial infarction, being addressed by cardiology. 2 bladder cancer with hematuria and incontinence. Patient will eventually require TURBT in the future. 3 history of multiple comorbidities including coronary artery disease, previous CABG, obstructive sleep apnea syndrome, chronic obstructive pulmonary disease, GERD without esophagitis, hyperlipidemia, severe ischemic cardiomyopathy and LV dysfunction. Recommendation: Patient is now off norepinephrine, maintained on option at 2 L, but he is usually on oxygen at home. I believe the patient could be considered for discharge home, needs to BE cleared by cardiology, and should have follow-up on outpatient basis with urology. Time with Patient: Less than 30
--- NOTE | 2019-04-11 13:08 | P.PN ---
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 Patient had a troponin elevation without any significant chest p ain, echocardiogram is being often patient does have elevated troponin up to 1. patient is fever chills no nausea no vomiting. 04/10/2019 Patient is on very minimal dose of norepinephrine although we are not able to get rid of. Patient will be given a dose of midodrine and probably get rid of for norepinephrine. Once his blood pressure stabilizes patient will require Lasix. Once his respiratory status improves patient may require cardiac catheterization patient had an echo cardiac exam which showed decreased ejection fraction which is new with the EF of 30-35% along with significant wall motion abnormalities. Patient may have stress-induced of cardio myopathy as well or supply demand mismatch. We'll discuss with cardiology nurse practitioner regarding this. Patient may need cystoscopy down the line was these issues are addressed. 04/11/2019 Patient is not requiring any pressor support although his blood pressure still in 90 systolic. I'm hoping his blood pressure get better tomorrow patient will be started on low-dose of Lasix and his blood pressure is bit better than 90 systolic. Patient will eventually need inpatient or outpatient cardiac catheterization same thing was discussed with cardiology. Patient will need cardiac catheterization before he can go for cystoscopy again same thing was discussed the patient will discuss with neurology as well. Constitutional: Denied any fatigue denied any fever. Cardio vascular: denied any chest pain, palpitations Gastrointestinal denied any nausea vomiting Pulmonary: Denied any shortness of breath cough Neurologic denied any new focal deficits All inpatient medications were reviewed and appropriate changes in these medications as dictated in the interval history and assessment and plan. Objective - Vital Signs Vital signs: Vital Signs Temp 97.5 F L 04/11/19 08:00 Pulse 81 04/11/19 10:00 Resp 19 04/11/19 10:00 BP 107/64 04/11/19 10:00 Pulse Ox 87 L 04/11/19 10:00 Intake & Output 04/10/19 04/11/19 04/11/19 18:59 06:59 18:59 Intake Total 649.392 240 380 Output Total 1415 1015 275 Balance -765.608 -775 105 Weight 74.3 kg 71.5 kg Intake: IV 240 240 80 Sodium Chloride 0.9% 1, 240 240 80 000 ml @ 20 mls/hr IV . Q24H [facility] Rx#:[id number] Intake, IV Titration 169.392 Amount Norepinephrine 4 mg In 169.392 Sodium Chloride 0.9% 250 ml @ 0.02 MCG/KG/MIN 5. 723 mls/hr IV .Q24H [facility] Rx#:[id number] Oral 240 300 Output: Urine 1415 1015 275 Other: Voiding Method Indwelling Catheter Indwelling Catheter Indwelling Catheter # Bowel Movements 1 1 - Exam PHYSICAL EXAMINATION: GENERAL: The patient is alert and oriented x3, not in any acute distress. Well developed, well nourished. HEENT: Pupils are round and equally reacting to light. EOMI. No scleral icterus. No conjunctival pallor. Normocephalic, atraumatic. No pharyngeal erythema. No thyromegaly. CARDIOVASCULAR: S1 and S2 present. No murmurs, rubs, or gallops. PULMONARY: Chest is clear to auscultation, no wheezing or crackles. ABDOMEN: Soft, nontender, nondistended, normoactive bowel sounds. No palpable organomegaly. MUSCULOSKELETAL: No joint swelling or deformity. EXTREMITIES: No cyanosis, clubbing, or pedal edema. NEUROLOGICAL: Gross neurological examination did not reveal any focal deficits. SKIN: No rashes. - Labs CBC & Chem 7: 04/11/19 05:00 04/11/19 05:00 Labs: Abnormal Lab Results - Last 24 Hours (Table) 04/11/19 04/11/19 Range/Units 05:00 05:00 WBC 11.9 H (3.8-10.6) k/uL RBC 3.85 L (4.30-5.90) m/uL Hgb 10.2 L (13.0-17.5) gm/dL Hct 32.1 L (39.0-53.0) % RDW 15.7 H (11.5-15.5) % Neutrophils # 9.6 H (1.3-7.7) k/uL Sodium 135 L (137-145) mmol/L Calcium 8.0 L (8.4-10.2) mg/dL AST 14 L (17-59) U/L ALT 18 L (21-72) U/L Total Protein 5.0 L (6.3-8.2) g/dL Albumin 2.5 L (3.5-5.0) g/dL Microbiology - Last 24 Hours (Table) 04/08/19 17:50 Blood Culture - Preliminary Blood No Growth after 48 hours Assessment and Plan Plan: -Hypotension secondary to anesthetic agent, patient is off Levophed blood pressures fairly stable to transfer out of ICU -Elevated troponin and possibility of non-ST elevation myocardial echocardiogram cardiac exam results as mentioned above, patient may have stress-induced cardio myopathy -Congestive heart failure chronic systolic dysfunction or acute systolic dysfunction with acute exacerbation. Because of low blood pressure patient is not being started on Lasix once his blood pressure stabilizes patient will require Lasix -Bladder cancer will require cystoscopy eventually -Coronary artery disease -Sleep apnea -Hyperlipidemia -Gastroesophageal reflux disease -Benign prostatic atrophy -Hypothyroidism for above-mentioned chronic medical problems patient will be resumed and continued on appropriate home medications
--- NOTE | 2019-04-11 13:48 | CDI ---
Documentation Clarification Form Date: 04/11/2019 1:37:36 PM From: Brook FerrerJEANINE, CCDS Admit Date: 04/08/2019 5:55:00 PM Patient Name: Carolee Pedersen Visit Number: [id number] Discharge Date: ATTENTION: The Clinical Documentation Specialists (CDI) and [employer] Coding Staff appreciate your assistance in clarifying documentation. Please respond to the clarification below the line at the bottom and electronically sign. The CDI & [employer] Coding staff will review the response and follow-up if needed. Please note: Queries are made part of the Legal Health Record. If you have any questions, please contact the author of this message via ITS. Dr. Rosanna Guaman or Dr. John Gill: Per the History & Physical: "78-year-old was recently diagnosed with bladder cancer after hematuria patient was undergoing cystoscopy (outpatient surgery center) received the propofol for sedation became hypotensive was transferred to the hospital was admitted to ICU patient was on Dobutamine drip presently on Levothroid drip patient is also receiving IV fluids because of some questionable pulmonary edema." Per the ED note: "...hypotension and possible cardiac arrest. ... Per the report he was possibly pulseless in the OR. No CPR was done, but 2 rounds of epinephrine were given with improvement of the hypotension and mental status. The patient was then started on a dopamine infusion." Patient history/risk factors: CAD & previous CABG, Bladder CA, COPD, GERD, Hyperlipidemia, CA, OA, Pneumonia, Sleep apnea, Smoker. Clinical Indicators: Presentation as above. Vitals: T 97.5*, P 98, R 18 - 26^, BP 86/42*, PO 96 RA Treatment: Initial tx as above. IV Norepinephrine Bitartrate, IV fluid 75, IV fl 20, INH Albuterol, admit to ICU. In your professional opinion, can you please specify the type of shock if known? Shock due to anesthesia Cardiogenic Shock o Cause Hypovolemic Shock o Cause Other, please specify Unable to determine (Last Revision: June 2017) Cardiogenic Shock o Cause arrhythmia, ischemic? MTDD
[2019-04-11] MEDS: PANTOPRAZOLE 40 MG TABLET PO SCH (17:16)
[2019-04-11] MEDS: ATORVASTATIN 20 MG TAB PO SCH (20:49)
[2019-04-12] MEDS: LEVOTHYROXINE 112 MCG TAB PO SCH (06:24)
--- NOTE | 2019-04-12 07:15 | P.PN ---
Subjective Progress Note Date: 04/12/19 The patient is in the hospital with marked hypotension after an anesthetic agent. He will require cardiac cath before I can do his bladder tumor resection. He is otherwise stable. Objective - Vital Signs Vital signs: Vital Signs Temp 98.3 F 04/12/19 01:05 Pulse 80 04/12/19 01:05 Resp 17 04/12/19 01:05 BP 84/50 04/12/19 01:30 Pulse Ox 93 L 04/12/19 01:05 Intake & Output 04/11/19 04/12/19 04/12/19 18:59 06:59 18:59 Intake Total 380 200 Output Total 275 650 Balance 105 -450 Weight 71.5 kg Intake: IV 80 Sodium Chloride 0.9% 1, 80 000 ml @ 20 mls/hr IV . Q24H [facility] Rx#:[id number] Oral 300 200 Output: Urine 275 650 Other: Voiding Method Indwelling Catheter # Bowel Movements 1 - Labs CBC & Chem 7: 04/11/19 05:00 04/11/19 05:00 Labs: Microbiology - Last 24 Hours (Table) 04/08/19 17:50 Blood Culture - Preliminary Blood No Growth after 72 hours
[2019-04-12] MEDS: IPRATROPIUM-ALBUTEROL 3 ML NEB INHALATION SCH ×3 (08:06→20:53)
[2019-04-12] MEDS: SYMBICORT 160-4.5 MCG INHALER INHALATION SCH ×2 (08:06→20:53)
[2019-04-12] MEDS: OXYBUTYNIN XL 5 MG TAB.ER.24 PO SCH (08:42)
[2019-04-12] MEDS: PRASUGREL 10 MG TAB PO SCH (08:42)
[2019-04-12] MEDS: ASPIRIN 325 MG TAB PO SCH ×2 (08:42→08:43)
[2019-04-12] MEDS: MIDODRINE 5 MG TAB PO SCH ×3 (08:42→17:59)
[2019-04-12] MEDS: SERTRALINE 50 MG TAB PO SCH (08:43)
[2019-04-12] MEDS: MONTELUKAST 10 MG TAB PO SCH (08:43)
[2019-04-12] MEDS: PANTOPRAZOLE 40 MG TABLET PO SCH ×2 (08:43→17:59)
[2019-04-12] MEDS: PHENAZOPYRIDINE 200 MG TAB PO SCH ×3 (08:48→21:07)
[2019-04-12] MEDS: FUROSEMIDE 10 MG/ML 2 ML VIAL IV ONE ×2 (12:15→12:35)
--- NOTE | 2019-04-12 15:04 | P.PN ---
Subjective This is a pleasant 78-year-old male past medical history significant for coronary artery disease s/p bypass grafting and subsequent stent placements to SVG with bare metal stent 2014 and prior to that in 2011 SAEED to SVG. He also has history of abdominal aortic aneurysm, dyslipidemia, COPD, hypothryoidism and chronic nicotine dependence. He is being seen today in follow-up on the medical/surgical unit. He was initially in the ICU after going unresponsive during TURP procedure with profound hypotension requiring levophed. There was al so noted to troponin elevation in the absence of anginal symptoms however echocardiogram obtained revealed impaired LV systolic function. There is some question from Dr. Guaman and Dr. Villanueva regarding cardiac catheterization. The patient is currently seen sitting up in the chair. He denies active chest pain. He also currently is denying any shortness of breath at rest, however he states if he gets up to walk to the bathroom he becomes short of breath. There are no complaints of palpitations or dizziness. Catheterization reports received from Dr. Kumar in 2014 revealed left main with a 50-60% distal stenosis, LAD with a 50-60% mid stenosis, 30% proximal stenosis, SVG to anterolateral branch with an 80-90% mid stenosis, circumflex with a total proximal occlusion, SVG to OM 20-30% proximal stenosis, patency at the site of the prior stent placement in the distal segment, RCA is totally occluded proximally, SVG to RCA proximal occlusion thought to be chronic, RODRIGUEZ to the LAD with no significant occlusion, ejection fraction at that time was 55%. At that time he underwent successful stent placement of the SVG to the anterior lateral distribution with a bare metal stent was noted to be margination of the contrast at the distal segment of the stent which did clear with ELI-3 flow to the anterolateral branch. Laboratory data from yesterday reviewed. GENERAL: Well-appearing, well-nourished and in no acute distress. NECK: Supple without JVD or thyromegaly. LUNGS: Breath sounds clear to auscultation bilaterally. Respiration equal and unlabored. Diminished bilaterally. HEART: Regular rate and rhythm without murmurs, rubs or gallops. S1 and S2 heard. EXTREMITIES: Normal range of motion, no edema. No clubbing or cyanosis. Peripheral pulses intact. ASSESSMENT [id number] myocardial infarction Ischemic cardiomyopathy, EF 30-35% History of coronary artery bypass grafting and subsequent stent placement to [facility] x2 2011 and 2014 with bare metal stent Hypotension, ongoing despite midodrine COPD Dyslipidemia Chronic nicotine dependence PLAN Overall clinically he is euvolemic with no fluid overload appreciated. Transfer to [facility] unit for closer cardiac monitoring. Blood pressures in the 70's systolic. Decrease aspirin to 81 mg daily and discontinue effient. Initiate on small dose of lopressor 12.5 mg BID with parameters to hold for SBP less then 95 or heart rate less then 55. Continue midodrine. Repeat chest xray in the morning. Continue to optimize medical treatment. Further discussion regarding catheterization will take place when he is medically stable. If he improves he would like to have this done by his primary stock house worker Dr. Kumar. As long as he is stable this is a reasonable plan. However if there is a change we will consider doing the catheterization here. Nurse Practitioner note has been reviewed, I agree with a documented findings and plan of care. Patient was seen and examined. Objective - Vital Signs Vital signs: Vital Signs Temp 98.7 F 04/12/19 07:51 Pulse 88 04/12/19 08:20 Resp 18 04/12/19 07:51 BP 91/55 04/12/19 07:51 Pulse Ox 90 L 04/12/19 07:51 Intake & Output 04/11/19 04/12/19 04/12/19 18:59 06:59 18:59 Intake Total 380 200 Output Total 275 650 Balance 105 -450 Weight 71.5 kg Intake: IV 80 Sodium Chloride 0.9% 1, 80 000 ml @ 20 mls/hr IV . Q24H [facility] Rx#:[id number] Oral 300 200 Output: Urine 275 650 Other: Voiding Method Indwelling Catheter # Bowel Movements 1 - Labs CBC & Chem 7: 04/11/19 05:00 04/11/19 05:00 Labs: Microbiology - Last 24 Hours (Table) 04/08/19 17:50 Blood Culture - Preliminary Blood No Growth after 72 hours
--- NOTE | 2019-04-12 16:58 | P.PN ---
Subjective Progress Note Date: 04/12/19 Principal diagnosis: This is an 78-year-old male who was admitted for hypotension and is being closely monitored. Patient still remains on 2-3 L of oxygen via nasal cannula with shortness of breath. Patient denies any chest pains or palpitations at this time. Patient is being followed by cardiology and urology as well. Patient was recently diagnosed with bladder cancer and was to undergo a cystoscopy and became hypotensive. Patient had a brief stay in the ICU and was on pressors for the hypotension. Patient is currently not on any drips at this time. Patient is drinking and eating normally with no issues. Patient's blood pressure remains in the low 90s systolic. Patient is asymptomatic at this time. Patient is sitting comfortably in the recliner at the bedside with his legs elevated watching TV. Per nursing staff the patient is being moved to the selective cardiac unit for closer monitoring. Will continue to monitor closely. Repeat chest x-ray is ordered for the a.m. Objective - Vital Signs Vital signs: Vital Signs Temp 98.7 F 04/12/19 13:53 Pulse 78 04/12/19 13:53 Resp 18 04/12/19 13:53 BP 91/52 04/12/19 13:53 Pulse Ox 93 L 04/12/19 13:53 Intake & Output 04/11/19 04/12/19 04/12/19 18:59 06:59 18:59 Intake Total 380 200 900 Output Total 275 650 300 Balance 105 -450 600 Weight 71.5 kg Intake: IV 80 Sodium Chloride 0.9% 1, 80 000 ml @ 20 mls/hr IV . Q24H [facility] Rx#:[id number] Oral 300 200 900 Output: Urine 275 650 300 Other: Voiding Method Indwelling Catheter Urinal # Voids 1 # Bowel Movements 1 1 - Exam Gen: This is a 78-year-old male sitting up in recliner with legs elevated in no acute distress. Patient is currently on 3 L of oxygen via nasal cannula. Blood pressure 77/49, pulse is 79, respirations are 18, temp is 98.7F, oxygen saturation is 90% on 3 L via nasal cannula HEENT: Head is atraumatic, normocephalic. Pupils equal, round. Sclerae is anicteric. NECK: Supple. No JVD. No lymphadenopathy. No thyromegaly. LUNGS: Clear to auscultation. No wheezes or rhonchi. No intercostal retractions. HEART: Regular rate and rhythm. No murmur. ABDOMEN: Soft. Bowel sounds are present. No masses. No tenderness. EXTREMITIES: No pedal edema. No calf tenderness. NEUROLOGICAL: Patient is awake, alert and oriented x3. Cranial nerves 2 through 12 are grossly intact. - Labs CBC & Chem 7: 04/11/19 05:00 04/11/19 05:00 Labs: Microbiology - Last 24 Hours (Table) 04/08/19 17:50 Blood Culture - Preliminary Blood No Growth after 72 hours Assessment and Plan Assessment: Hypotension secondary to anesthetic agent, patient is off pressors. We will continue to monitor vital signs closely. Elevated troponin possibility of non-ST elevation myocardial infarction. Cardiology is following closely, patient may have stress-induced cardiomyopathy Congestive heart failure with chronic systolic dysfunction or acute systolic dysfunction with acute exacerbation. Patient did receive a low-dose of IV Lasix. Blood pressure remains in the low 90s systolic. Bladder cancer will require cystoscopy eventually once cleared by cardiology and stable Coronary artery disease Sleep apnea Hyperlipidemia Gastroesophageal reflux disease Benign prostatic hypertrophy Hypothyroidism GI prophylaxis: Protonix Recommendations and discussion Recommend continue current medications and symptomatic treatment. Will continue to monitor closely of labs and vital signs. Patient is being moved to the selected unit for close monitoring. Guarded prognosis. Cardiology is following closely. Further recommendations to follow.
[2019-04-12] MEDS ORDERED: SODIUM CHLORIDE 0.9% 500 ML 250 ML IV ONE (20:25)
[2019-04-12] MEDS: METOPROLOL TARTRATE 12.5 MG TAB PO SCH (21:05)
[2019-04-12] MEDS: ATORVASTATIN 20 MG TAB PO SCH (21:07)
[2019-04-13] MEDS: LEVOTHYROXINE 112 MCG TAB PO SCH (06:28)
[2019-04-13] MEDS: PANTOPRAZOLE 40 MG TABLET PO SCH ×2 (06:28→15:56)
[2019-04-13] MEDS: MIDODRINE 5 MG TAB PO SCH ×3 (06:28→15:56)
[2019-04-13 06:30] LABS: HCT 29.1 % (39.0-53.0); HGB 9.3 gm/dL (13.0-17.5); MCH 26.9 pg (25.0-35.0); MCHC 32.2 g/dL (31.0-37.0); MCV 83.5 fL (80.0-100.0); Mean Platelet Volume 6.8; Platelet Count 186 k/uL (150-450); RBC 3.48 m/uL (4.30-5.90); RDW 15.5 % (11.5-15.5); WBC 7.4 k/uL (3.8-10.6)
[2019-04-13 06:56] LABS: Calcium 8.3 mg/dL (8.4-10.2); Potassium 3.7 mmol/L (3.5-5.1)
[2019-04-13] MEDS: IPRATROPIUM-ALBUTEROL 3 ML NEB INHALATION SCH ×3 (07:31→19:26)
[2019-04-13] MEDS: SYMBICORT 160-4.5 MCG INHALER INHALATION SCH ×2 (07:31→19:26)
--- NOTE | 2019-04-13 07:40 | XR ---
EXAMINATION TYPE: XR chest 1V portable DATE OF EXAM: 04/13/2019 HISTORY: sob, follow-up. REFERENCE: Previous study dated 04/09/2019. FINDINGS: There has been a midline sternotomy. A left internal jugular catheter is in place. Its tip is in the superior vena cava. There is mild vascular congestion. There is subtle interstitial change. The heart is not enlarged. Th ere are no significant pleural effusions. IMPRESSION: CONTINUING CHANGES OF MILD HEART FAILURE.
[2019-04-13] MEDS: METOPROLOL TARTRATE 12.5 MG TAB PO SCH ×2 (08:47→20:01)
[2019-04-13] MEDS: PHENAZOPYRIDINE 200 MG TAB PO SCH ×3 (08:54→20:34)
[2019-04-13] MEDS: OXYBUTYNIN XL 5 MG TAB.ER.24 PO SCH (08:54)
[2019-04-13] MEDS: MONTELUKAST 10 MG TAB PO SCH (08:54)
[2019-04-13] MEDS: ASPIRIN 81 MG PO SCH (08:54)
[2019-04-13] MEDS: SERTRALINE 50 MG TAB PO SCH (08:54)
[2019-04-13] MEDS ORDERED: FUROSEMIDE 10 MG/ML 2 ML VIAL IV STA (11:07)
--- NOTE | 2019-04-13 13:16 | P.PN ---
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 Patient had a troponin elevation without any significant chest pain, echocardiogram is being often patient does have elevated troponin up to 1. patient is fever chills no nausea no vomiting. 04/10/2019 Patient is on very minimal dose of norepinephrine although we are not able to get rid of. Patient will be given a dose of midodrine and probably get rid of for norepinephrine. Once his blood pressure stabilizes patient will require Lasix. Once his respiratory status improves patient may require cardiac cath eterization patient had an echo cardiac exam which showed decreased ejection fraction which is new with the EF of 30-35% along with significant wall motion abnormalities. Patient may have stress-induced of cardio myopathy as well or supply demand mismatch. We'll discuss with cardiology nurse practitioner regarding this. Patient may need cystoscopy down the line was these issues are addressed. 04/11/2019 Patient is not requiring any pressor support although his blood pressure still in 90 systolic. I'm hoping his blood pressure get better tomorrow patient will be started on low-dose of Lasix and his blood pressure is bit better than 90 systolic. Patient will eventually need inpatient or outpatient cardiac catheterization same thing was discussed with cardiology. Patient will need cardiac catheterization before he can go for cystoscopy again same thing was discussed the patient will discuss with neurology as well. 04/13/2019 Patient chest x-ray still showing pulmonary edema patient is according to response in here. Saturating at 91% patient care patient is an 80 systolic. It improves to 90 patient will be given 20 mg of IV Lasix. Constitutional: Denied any fatigue denied any fever. Cardio vascular: denied any chest pain, palpitations Gastrointestinal denied any nausea vomiting Pulmonary: Denied any shortness of breath cough Neurologic denied any new focal deficits All inpatient medications were reviewed and appropriate changes in these medications as dictated in the interval history and assessment and plan. Objective - Vital Signs Vital signs: Vital Signs Temp 97.3 F L 04/13/19 12:00 Pulse 75 08/03/19 12:03 Resp 18 04/13/19 12:00 BP 84/59 04/13/19 12:00 Pulse Ox 93 L 04/13/19 12:00 Intake & Output 04/12/19 04/13/19 04/13/19 18:59 06:59 18:59 Intake Total 1020 260 118 Output Total 300 100 100 Balance 720 160 18 Weight 68.2 kg Intake: IV 260 Sodium Chloride 0.9% 1, 260 000 ml @ 20 mls/hr IV . Q24H [facility] Rx#:[id number] Oral 1020 118 Output: Urine 300 100 100 Other: Voiding Method Urinal Urinal Urinal # Voids 1 1 1 # Bowel Movements 1 1 - Exam PHYSICAL EXAMINATION: GENERAL: The patient is alert and oriented x3, not in any acute distress. Well developed, well nourished. HEENT: Pupils are round and equally reacting to light. EOMI. No scleral icterus. No conjunctival pallor. Normocephalic, atraumatic. No pharyngeal erythema. No thyromegaly. CARDIOVASCULAR: S1 and S2 present. No murmurs, rubs, or gallops. Does have JVD PULMONARY: Chest is clear to auscultation, no wheezing or crackles. ABDOMEN: Soft, nontender, nondistended, normoactive bowel sounds. No palpable organomegaly. MUSCULOSKELETAL: No joint swelling or deformity. EXTREMITIES: No cyanosis, clubbing, or minimal 1+ pitting pedal edema NEUROLOGICAL: Gross neurological examination did not reveal any focal deficits. SKIN: No rashes. - Labs CBC & Chem 7: 04/13/19 06:01 04/13/19 06:01 Labs: Abnormal Lab Results - Last 24 Hours (Table) 04/13/19 04/13/19 Range/Units 06:01 06:01 RBC 3.48 L (4.30-5.90) m/uL Hgb 9.3 L (13.0-17.5) gm/dL Hct 29.1 L (39.0-53.0) % Calcium 8.3 L (8.4-10.2) mg/dL Microbiology - Last 24 Hours (Table) 04/08/19 17:50 Blood Culture - Preliminary Blood No Growth after 96 hours Assessment and Plan Plan: -Hypotension secondary to anesthetic agent, patient is off Levophed blood pressures fairly stable but still low patient heart failure holding of Lasix because of his hypotension -Elevated troponin and possibility of non-ST elevation myocardial echocardiogram cardiac exam results as mentioned above, other differential illness stress- induced cardio myopathy -Congestive heart failure chronic systolic dysfunction or acute systolic dysfunction with acute exacerbation. She will be given a small dose of Lasix. His blood pressure can tolerate -Acute hypoxic respiratory failure secondary to congestive heart failure, pulmonary edema -Bladder cancer will require cystoscopy eventually -Coronary artery disease -Sleep apnea -Hyperlipidemia -Gastroesophageal reflux disease -Benign prostatic atrophy -Hypothyroidism
--- NOTE | 2019-04-13 14:19 | P.PN ---
Subjective Progress Note Date: 04/13/19 This is a pleasant 78-year-old male past medical history significant for coronary artery disease s/p bypass grafting and subsequent stent placements to SVG with bare metal stent 2014 and prior to that in 2011 SAEED to SVG. He also has history of abdominal aortic aneurysm, dyslipidemia, COPD, hypothryoidism and chronic nicotine dependence. He is being seen today in follow-up on the medical/surgical unit. He was initially in the ICU after going unresponsive during TURP procedure with profound hypotension requiring levophed. There was also noted to troponin elevation in the absence of anginal symptoms however echocardiogram obtained revealed impaired LV systolic function. There is some question from Dr. Guaman and Dr. Villanueva regarding cardiac catheterization. The patient is currently seen sitting up in the chair. He denies active chest pain. He also currently is denying any shortness of breath at rest, however he states if he gets up to walk to the bathroom he becomes short of breath. There are no complaints of palpitations or dizziness. Catheterization reports received from Dr. Kumar in 2014 revealed left main with a 50-60% distal stenosis, LAD with a 50-60% mid stenosis, 30% proximal stenosis, SVG to anterolateral branch with an 80-90% mid stenosis, circumflex with a total proximal occlusion, SVG to OM 20-30% proximal stenosis, patency at the site of the prior stent placement in the distal segment, RCA is totally occluded proximally, SVG to RCA proximal occlusion thought to be chronic, RODRIGUEZ to the LAD with no significant occlusion, ejection fraction at that time was 55%. At that time he underwent successful stent placement of the SVG to the anterior lateral distribution with a bare metal stent was noted to be margination of the contrast at the distal segment of the stent which did clear with ELI-3 flow to the anterolateral branch. Laboratory data from yesterday reviewed. 04/13: The patient denies having any chest pain or shortness of breath. He is able to lie flat in bed without shortness of breath. He denies any dizziness. He states he did not sleep well last night and is sleepy today. Blood pressure 8459, heart rate 75, afebrile, pulse ox 93% on 2 L nasal cannula. Patient is on Lopressor 12.5 mg twice daily but this has been held by nursing due to parameters. Hemoglobin is 9.3, creatinine 0.94, electrolytes within normal limits. Repeat chest x-ray reveals continued changes of mild heart failure. GENERAL: Well-appearing, well-nourished and in no acute distress. NECK: Supple without JVD or thyromegaly. LUNGS: Breath sounds clear to auscultation bilaterally. Respiration equal and unlabored. Diminished bilaterally. HEART: Regular rate and rhythm without murmurs, rubs or gallops. S1 and S2 heard. EXTREMITIES: Normal range of motion, no edema. No clubbing or cyanosis. Peripheral pulses intact. ASSESSMENT Fox-[place]-wlagvtct myocardial infarction Ischemic cardiomyopathy, EF 30-35% History of coronary artery bypass grafting and subsequent stent placement [place] [facility] [place] 2014 with bare metal stent Hypotension, ongoing despite midodrine COPD Dyslipidemia Chronic nicotine dependence PLAN Overall clinically he is euvolemic with no fluid overload appreciated. Continue close cardiac monitoring on cardiac stepdown unit. Blood pressures is stable but on the low side with systolic in the 80s. Decrease aspirin to 81 mg daily and discontinue effient. Initiate on small dose of lopressor 12.5 mg BID with parameters to hold for SBP less then 95 or heart rate less then 55. Continue midodrine. Continue to optimize medical treatment. Further discussion regarding catheterization will take place when he is medically stable. 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 As long as he is stable this is a reasonable plan. However if there is a change we will consider doing the catheterization here. Further recommendations to follow based upon clinical course. Nurse Practitioner note has been reviewed, I agree with a documented findings and plan of care. Patient was seen and examined. Objective - Vital Signs Vital signs: Vital Signs Temp 97.3 F L 04/13/19 12:00 Pulse 75 04/13/19 12:03 Resp 18 04/13/19 12:00 BP 84/59 04/13/19 12:00 Pulse Ox 93 L 04/13/19 12:00 Intake & Output 04/12/19 04/13/19 04/13/19 18:59 06:59 18:59 Intake Total 1020 260 118 Output Total 300 100 100 Balance 720 160 18 Weight 68.2 kg 68.2 kg Intake: IV 260 Sodium Chloride 0.9% 1, 260 000 ml @ 20 mls/hr IV . Q24H [facility] Rx#:[id number] Oral 1020 118 Output: Urine 300 100 100 Other: Voiding Method Urinal Urinal Urinal # Voids 1 1 1 # Bowel Movements 1 1 - Labs CBC & Chem 7: 04/13/19 06:01 04/13/19 06:01 Labs: Abnormal Lab Results - Last 24 Hours (Table) 04/13/19 04/13/19 Range/Units 06:01 06:01 RBC 3.48 L (4.30-5.90) m/uL Hgb 9.3 L (13.0-17.5) gm/dL Hct 29.1 L (39.0-53.0) % Calcium 8.3 L (8.4-10.2) mg/dL Microbiology - Last 24 Hours (Table) 04/08/19 17:50 Blood Culture - Preliminary Blood No Growth after 96 hours
[2019-04-13 20:22] LABS: Glucose,Whole Blood 172 mg/dL (75-99)
[2019-04-13] MEDS: ATORVASTATIN 20 MG TAB PO SCH (20:34)
[2019-04-14 06:10] LABS: Glucose,Whole Blood 109 mg/dL (75-99)
[2019-04-14] MEDS: MIDODRINE 5 MG TAB PO SCH ×3 (06:31→17:39)
[2019-04-14] MEDS: LEVOTHYROXINE 112 MCG TAB PO SCH (06:31)
[2019-04-14] MEDS: PANTOPRAZOLE 40 MG TABLET PO SCH ×2 (06:31→17:39)
[2019-04-14 06:55] LABS: Calcium 8.6 mg/dL (8.4-10.2); Potassium 4.6 mmol/L (3.5-5.1)
[2019-04-14] MEDS: IPRATROPIUM-ALBUTEROL 3 ML NEB INHALATION SCH ×3 (07:40→20:47)
[2019-04-14] MEDS: SYMBICORT 160-4.5 MCG INHALER INHALATION SCH ×2 (07:40→20:47)
[2019-04-14] MEDS: PHENAZOPYRIDINE 200 MG TAB PO SCH ×3 (09:02→21:25)
[2019-04-14] MEDS: OXYBUTYNIN XL 5 MG TAB.ER.24 PO SCH (09:03)
[2019-04-14] MEDS: ASPIRIN 81 MG PO SCH (09:03)
[2019-04-14] MEDS: SERTRALINE 50 MG TAB PO SCH (09:03)
[2019-04-14] MEDS: MONTELUKAST 10 MG TAB PO SCH (09:05)
[2019-04-14] MEDS: METOPROLOL TARTRATE 12.5 MG TAB PO SCH ×2 (09:06→20:25)
[2019-04-14 11:51] LABS: Glucose,Whole Blood 133 mg/dL (75-99)
[2019-04-14] MEDS: FLUDROCORTISONE 0.1 MG TAB PO SCH (12:36)
--- NOTE | 2019-04-14 13:22 | P.PN ---
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 Patient had a troponin elevation without any significant chest p ain, echocardiogram is being often patient does have elevated troponin up to 1. patient is fever chills no nausea no vomiting. 04/10/2019 Patient is on very minimal dose of norepinephrine although we are not able to get rid of. Patient will be given a dose of midodrine and probably get rid of for norepinephrine. Once his blood pressure stabilizes patient will require Lasix. Once his respiratory status improves patient may require cardiac catheterization patient had an echo cardiac exam which showed decreased ejection fraction which is new with the EF of 30-35% along with significant wall motion abnormalities. Patient may have stress-induced of cardio myopathy as well or supply demand mismatch. We'll discuss with cardiology nurse practitioner regarding this. Patient may need cystoscopy down the line was these issues are addressed. 04/11/2019 Patient is not requiring any pressor support although his blood pressure still in 90 systolic. I'm hoping his blood pressure get better tomorrow patient will be started on low-dose of Lasix and his blood pressure is bit better than 90 systolic. Patient will eventually need inpatient or outpatient cardiac catheterization same thing was discussed with cardiology. Patient will need cardiac catheterization before he can go for cystoscopy again same thing was discussed the patient will discuss with neurology as well. 04/13/2019 Patient chest x-ray still showing pulmonary edema patient is according to response in here. Saturating at 91% patient care patient is an 80 systolic. It improves to 90 patient will be given 20 mg of IV Lasix. 04/14/2019 Patient blood pressure remains low, cardiology is not requiring any more Lasix. Patient is still on to Suboxone. Constitutional: Denied any fatigue denied any fever. Cardio vascular: denied any chest pain, palpitations Gastrointestinal denied any nausea vomiting Pulmonary: Denied any shortness of breath cough Neurologic denied any new focal deficits All inpatient medications were reviewed and appropriate changes in these medications as dictated in the interval history and assessment and plan. Objective - Vital Signs Vital signs: Vital Signs Temp 98.0 F 04/14/19 08:00 Pulse 79 04/14/19 13:12 Resp 20 04/14/19 08:00 BP 77/48 04/14/19 08:00 Pulse Ox 90 L 04/14/19 08:00 Intake & Output 04/13/19 04/14/19 04/14/19 18:59 06:59 18:59 Intake Total 358 240 358 Output Total 600 600 Balance -242 240 -242 Weight 68.2 kg 68.3 kg Intake: Oral 358 240 358 Output: Urine 600 600 Other: Voiding Method Urinal Urinal Urinal # Voids 1 2 # Bowel Movements 1 - Exam PHYSICAL EXAMINATION: GENERAL: The patient is alert and oriented x3, not in any acute distress. Well developed, well nourished. HEENT: Pupils are round and equally reacting to light. EOMI. No scleral icterus. No conjunctival pallor. Normocephalic, atraumatic. No pharyngeal erythema. No thyromegaly. CARDIOVASCULAR: S1 and S2 present. No murmurs, rubs, or gallops. PULMONARY: Chest is clear to auscultation, no wheezing or crackles. ABDOMEN: Soft, nontender, nondistended, normoactive bowel sounds. No palpable organomegaly. MUSCULOSKELETAL: No joint swelling or deformity. EXTREMITIES: No cyanosis, clubbing, or minimal 1+ pitting pedal edema NEUROLOGICAL: Gross neurological examination did not reveal any focal deficits. SKIN: No rashes. - Labs CBC & Chem 7: 04/13/19 06:01 04/14/19 06:05 Labs: Abnormal Lab Results - Last 24 Hours (Table) 04/13/19 04/14/19 04/14/19 Range/Units 20:21 06:05 06:08 Chloride 108 H (98-107) mmol/L POC Glucose (mg/dL) 172 H 109 H (75-99) mg/dL 04/14/19 Range/Units 11:49 Chloride (98-107) mmol/L POC Glucose (mg/dL) 133 H (75-99) mg/dL Microbiology - Last 24 Hours (Table) 04/08/19 17:50 Blood Culture - Preliminary Blood No Growth after 120 hours Assessment and Plan Plan: -Hypotension secondary to anesthetic agent, patient is off Levophed blood pressures fairly stable -Elevated troponin and possibility of non-ST elevation myocardial echocardiogram cardiac exam results as mentioned above, other differential illness stress- induced cardio myopathy -Congestive heart failure chronic systolic dysfunction or acute systolic dysfunction with acute exacerbation. She appears to be fairly [place] at this time can you to hold off on Lasix blood pressure is extremely low -Acute hypoxic respiratory failure secondary to congestive heart failure, pulmonary edema, improved but still on 2 L of oxygen -Bladder cancer will require cystoscopy eventually -Coronary artery disease -Sleep apnea -Hyperlipidemia -Gastroesophageal reflux disease -Benign prostatic atrophy -Hypothyroidism
--- NOTE | 2019-04-14 14:20 | P.PN ---
Subjective Progress Note Date: 04/14/19 This is a pleasant 78-year-old male past medical history significant for coronary artery disease s/p bypass grafting and subsequent stent placements to SVG with bare metal stent 2014 and prior to that in 2011 SAEED to SVG. He also has history of abdominal aortic aneurysm, dyslipidemia, COPD, hypothryoidism and chronic nicotine dependence. He is being seen today in follow-up on the medical/surgical unit. He was initially in the ICU after going unresponsive during TURP procedure with profound hypotension requiring levophed. There was also noted to troponin elevation in the absence of anginal symptoms however echocardiogram obtained revealed impaired LV systolic function. There is some question from Dr. Guaman and Dr. Villanueva regarding cardiac catheterization. The patient is currently seen sitting up in the chair. He denies active chest pain. He also currently is denying any shortness of breath at rest, however he states if he gets up to walk to the bathroom he becomes short of breath. There are no complaints of palpitations or dizziness. Catheterization reports received from Dr. Kumar in 2014 revealed left main with a 50-60% distal stenosis, LAD with a 50-60% mid stenosis, 30% proximal stenosis, SVG to anterolateral branch with an 80-90% mid stenosis, circumflex with a total proximal occlusion, SVG to OM 20-30% proximal stenosis, patency at the site of the prior stent placement in the distal segment, RCA is totally occluded proximally, SVG to RCA proximal occlusion thought to be chronic, RODRIGUEZ to the LAD with no significant occlusion, ejection fraction at that time was 55%. At that time he underwent successful stent placement of the SVG to the anterior lateral distribution with a bare metal stent was noted to be margination of the contrast at the distal segment of the stent which did clear with ELI-3 flow to the anterolateral branch. Laboratory data from yesterday reviewed. 04/13: The patient denies having any chest pain or shortness of breath. He is able to lie flat in bed without shortness of breath. He denies any dizziness. He states he did not sleep well last night and is sleepy today. Blood pressure 8459, heart rate 75, afebrile, pulse ox 93% on 2 L nasal cannula. Patient is on Lopressor 12.5 mg twice daily but this has been held by nursing due to parameters. Hemoglobin is 9.3, creatinine 0.94, electrolytes within normal limits. Repeat chest x-ray reveals continued changes of mild heart failure. 04/14: Patient's blood pressure remains low with systolic in the 70s and 80s. Patient has not received any doses of the metoprolol which was started on April 12. This will be discontinued. Heart rate is in the 70s and 80s. He has been afebrile, pulse ox 92% on 3 L nasal cannula. Repeat base metabolic essentially normal. GENERAL: The patient is sitting up in recliner appears to be in no acute distress. He is eating lunch and no respiratory distress is noted. NECK: Supple without JVD or thyromegaly. LUNGS: Breath sounds clear to auscultation bilaterally. Respiration equal and unlabored. Diminished bilaterally. HEART: Regular rate and rhythm without murmurs, rubs or gallops. S1 and S2 heard. ABDOMEN: Soft, bowel sounds present, no tenderness. Mag[place] catheter draining orange urine. EXTREMITIES: Normal range of motion, no edema. No clubbing or cyanosis. Peripheral pulses intact. ASSESSMENT [id number] myocardial infarction Ischemic cardiomyopathy, EF 30-35% History of coronary artery bypass grafting and subsequent stent placement to [facility] x2 2011 and 2014 with bare metal stent Hypotension, ongoing despite midodrine COPD Dyslipidemia Chronic nicotine dependence History of bladder cancer PLAN continue aspirin to 81 mg daily and discontinue effient. Discontinue Lopressor as patient has been unable to tolerate due to hypotension and has not received any doses. Lasix discontinued yesterday. Continue midodrine 10 mg 3 times daily. Add Florinef 0.1 mg daily. Continue to optimize medical treatment. Further discussion regarding catheterization will take place when he is medically stable. If he improves he would like to have this done by his primary armature rewinder Dr. Kumar. As long as he is stable this is a reasonable plan. However if there is a change we will consider doing the catheterization here. Further recommendations to follow based upon clinical course. Nurse Practitioner note has been reviewed, I agree with a documented findings and plan of care. Patient was seen and examined. Objective - Vital Signs Vital signs: Vital Signs Temp 97.9 F 04/14/19 12:00 Pulse 81 04/14/19 13:22 Resp 20 04/14/19 12:00 BP 86/50 04/14/19 12:00 Pulse Ox 92 L 04/14/19 12:00 Intake & Output 04/13/19 04/14/19 04/14/19 18:59 06:59 18:59 Intake Total 358 240 358 Output Total 600 600 Balance -242 240 -242 Weight 68.2 kg 68.3 kg Intake: Oral 358 240 358 Output: Urine 600 600 Other: Voiding Method Urinal Urinal Urinal Incontinent # Voids 1 2 # Bowel Movements 1 - Labs CBC & Chem 7: 04/13/19 06:01 04/14/19 06:05 Labs: Abnormal Lab Results - Last 24 Hours (Table) 04/13/19 04/14/19 04/14/19 Range/Units 20:21 06:05 06:08 Chloride 108 H (98-107) mmol/L POC Glucose (mg/dL) 172 H 109 H (75-99) mg/dL 04/14/19 Range/Units 11:49 Chloride (98-107) mmol/L POC Glucose (mg/dL) 133 H (75-99) mg/dL Microbiology - Last 24 Hours (Table) 04/08/19 17:50 Blood Culture - Preliminary Blood No Growth after 120 hours
[2019-04-14 16:41] LABS: Glucose,Whole Blood 112 mg/dL (75-99)
[2019-04-14] MEDS: ATORVASTATIN 20 MG TAB PO SCH (21:25)
[2019-04-15] MEDS: LEVOTHYROXINE 112 MCG TAB PO SCH (06:37)
[2019-04-15] MEDS: MIDODRINE 5 MG TAB PO SCH ×3 (06:37→17:23)
[2019-04-15] MEDS: PANTOPRAZOLE 40 MG TABLET PO SCH ×2 (06:37→17:23)
[2019-04-15] MEDS: OXYBUTYNIN XL 5 MG TAB.ER.24 PO SCH (08:55)
[2019-04-15] MEDS: METOPROLOL TARTRATE 12.5 MG TAB PO SCH ×2 (08:55→20:53)
[2019-04-15] MEDS: SERTRALINE 50 MG TAB PO SCH (08:55)
[2019-04-15] MEDS: ASPIRIN 81 MG PO SCH (08:55)
[2019-04-15] MEDS: MONTELUKAST 10 MG TAB PO SCH (08:55)
[2019-04-15] MEDS: PHENAZOPYRIDINE 200 MG TAB PO SCH ×3 (08:55→20:53)
[2019-04-15] MEDS: FLUDROCORTISONE 0.1 MG TAB PO SCH (08:55)
[2019-04-15] MEDS: SYMBICORT 160-4.5 MCG INHALER INHALATION SCH ×2 (09:04→20:21)
[2019-04-15] MEDS: IPRATROPIUM-ALBUTEROL 3 ML NEB INHALATION SCH ×3 (09:04→20:21)
[2019-04-15] MEDS ORDERED: FUROSEMIDE 10 MG/ML 2 ML VIAL IV ONE (10:29)
--- NOTE | 2019-04-15 11:52 | P.PN ---
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 Patient had a troponin elevation without any significant chest p ain, echocardiogram is being often patient does have elevated troponin up to 1. patient is fever chills no nausea no vomiting. 04/10/2019 Patient is on very minimal dose of norepinephrine although we are not able to get rid of. Patient will be given a dose of midodrine and probably get rid of for norepinephrine. Once his blood pressure stabilizes patient will require Lasix. Once his respiratory status improves patient may require cardiac catheterization patient had an echo cardiac exam which showed decreased ejection fraction which is new with the EF of 30-35% along with significant wall motion abnormalities. Patient may have stress-induced of cardio myopathy as well or supply demand mismatch. We'll discuss with cardiology nurse practitioner regarding this. Patient may need cystoscopy down the line was these issues are addressed. 04/11/2019 Patient is not requiring any pressor support although his blood pressure still in 90 systolic. I'm hoping his blood pressure get better tomorrow patient will be started on low-dose of Lasix and his blood pressure is bit better than 90 systolic. Patient will eventually need inpatient or outpatient cardiac catheterization same thing was discussed with cardiology. Patient will need cardiac catheterization before he can go for cystoscopy again same thing was discussed the patient will discuss with neurology as well. 04/13/2019 Patient chest x-ray still showing pulmonary edema patient is according to response in here. Saturating at 91% patient care patient is an 80 systolic. It improves to 90 patient will be given 20 mg of IV Lasix. 04/14/2019 Patient blood pressure remains low, cardiology is not requiring any more Lasix. 04/15/2019 Patient will be started on IV Lasix 20 mg patient blood pressure is doing better today. Patient is still on 3 L of oxygen Constitutional: Denied any fatigue denied any fever. Cardio vascular: denied any chest pain, palpitations Gastrointestinal denied any nausea vomiting Pulmonary: Denied any shortness of breath cough Neurologic denied any new focal deficits All inpatient medications were reviewed and appropriate changes in these medications as dictated in the interval history and assessment and plan. Objective - Vital Signs Vital signs: Vital Signs Temp 97.8 F 04/15/19 08:00 Pulse 76 04/15/19 09:19 Resp 18 04/15/19 08:00 BP 98/57 04/15/19 08:00 Pulse Ox 91 L 04/15/19 08:30 Intake & Output 04/14/19 04/15/19 04/15/19 18:59 06:59 18:59 Intake Total 476 120 Output Total 950 350 Balance -474 -350 120 Weight 69.6 kg Intake: Oral 476 120 Output: Urine 950 350 Other: Voiding Method Urinal Urinal Urinal Incontinent Incontinent Incontinent # Voids 1 - Exam PHYSICAL EXAMINATION: GENERAL: The patient is alert and oriented x3, not in any acute distress. Well developed, well nourished. HEENT: Pupils are round and equally reacting to light. EOMI. No scleral icterus. No conjunctival pallor. Normocephalic, atraumatic. No pharyngeal erythema. No thyromegaly. CARDIOVASCULAR: S1 and S2 present. No murmurs, rubs, or gallops. PULMONARY: Does have bibasilar crackles ABDOMEN: Soft, nontender, nondistended, normoactive bowel sounds. No palpable organomegaly. MUSCULOSKELETAL: No joint swelling or deformity. EXTREMITIES: No cyanosis, clubbing, or minimal 1+ pitting pedal edema NEUROLOGICAL: Gross neurological examination did not reveal any focal deficits. SKIN: No rashes. - Labs CBC & Chem 7: 04/13/19 06:01 04/14/19 06:05 Labs: Abnormal Lab Results - Last 24 Hours (Table) 04/14/19 04/14/19 Range/Units 11:49 16:39 POC Glucose (mg/dL) 133 H 112 H (75-99) mg/dL Microbiology - Last 24 Hours (Table) 04/08/19 17:50 Blood Culture - Final Blood No Growth after 144 hours Assessment and Plan Plan: -Hypotension secondary to anesthetic agent, patient is off Levophed blood pressures fairly stable -Elevated troponin and possibility of non-ST elevation myocardial echocardiogram cardiac exam results as mentioned above, other differential illness stress- induced cardio myopathy -Congestive heart failure chronic systolic dysfunction or acute systolic dysfunction with acute exacerbation. Patient will be given Lasix today patient is still on 2 L of oxygen secondary to pulmonary edema -Acute hypoxic respiratory failure secondary to congestive heart failure, pulmonary edema, improved but still on 3 L of oxygen -Bladder cancer will require cystoscopy eventually -Coronary artery disease -Sleep apnea -Hyperlipidemia -Gastroesophageal reflux disease -Benign prostatic atrophy -Hypothyroidism
--- NOTE | 2019-04-15 13:06 | P.PN ---
Subjective Progress Note Date: 04/15/19 This is a pleasant 78-year-old male past medical history significant for coronary artery disease s/p bypass grafting and subsequent stent placements to SVG with bare metal stent 2014 and prior to that in 2011 SAEED to SVG. He also has history of abdominal aortic aneurysm, dyslipidemia, COPD, hypothryoidism and chronic nicotine dependence. He is being seen today in follow-up on the medical/surgical unit. He was initially in the ICU after going unresponsive during TURP procedure with profound hypotension requiring levophed. There was also noted to troponin elevation in the absence of anginal symptoms however echocardiogram obtained revealed impaired LV systolic function. Catheterization reports received from Dr. Kumar in 2014 revealed left main with a 50-60% distal stenosis, LAD with a 50-60% mid stenosis, 30% proximal stenosis, SVG to anterolateral branch with an 80-90% mid stenosis, circumflex with a total proximal occlusion, SVG to OM 20-30% proximal stenosis, patency at the site of the prior stent placement in the distal segment, RCA is totally occluded proximally, SVG to RCA proximal occlusion thought to be chronic, RODRIGUEZ to the LAD with no significant occlusion, ejection fraction at that time was 55%. At that time he underwent successful stent placement of the SVG to the anterior lateral distribution with a bare metal stent was noted to be margination of the contrast at the distal segment of the stent which did clear with ELI-3 flow to the anterolateral branch. Patient was seen and examined today, sitting up in the chair, denies any chest pain, no shortness of breath. Dr. Cuadra did have a conversation with the patient regarding the need for cardiac catheterization, giving him the option of having it done here. Patient does wish to undergo cardiac catheterization here, he does understand the risks and the benefits. Objective - Vital Signs Vital signs: Vital Signs Temp 97.8 F 04/15/19 08:00 Pulse 76 04/15/19 09:19 Resp 18 04/15/19 08:00 BP 98/57 04/15/19 08:00 Pulse Ox 91 L 04/15/19 08:30 Intake & Output 04/14/19 04/15/19 04/15/19 18:59 06:59 18:59 Intake Total 476 120 Output Total 950 350 200 Balance -474 -350 -80 Weight 69.6 kg Intake: Oral 476 120 Output: Urine 950 350 200 Other: Voiding Method Urinal Urinal Urinal Incontinent Incontinent Incontinent # Voids 1 # Bowel Movements 0 - Exam GENERAL: The patient is sitting up in recliner appears to be in no acute distress. He is eating lunch and no respiratory distress is noted. NECK: Supple without JVD or thyromegaly. LUNGS: Breath sounds clear to auscultation bilaterally. Respiration equal and unlabored. Diminished bilaterally. HEART: Regular rate and rhythm without murmurs, rubs or gallops. S1 and S2 heard. ABDOMEN: Soft, bowel sounds present, no tenderness. Magaña catheter draining orange urine. EXTREMITIES: Normal range of motion, no edema. No clubbing or cyanosis. Peripheral pulses intact. - Labs CBC & Chem 7: 04/13/19 06:01 04/14/19 06:05 Labs: Abnormal Lab Results - Last 24 Hours (Table) 04/14/19 Range/Units 16:39 POC Glucose (mg/dL) 112 H (75-99) mg/dL Microbiology - Last 24 Hours (Table) 04/08/19 17:50 Blood Culture - Final Blood No Growth after 144 hours Assessment and Plan Plan: Assessment and plan #1 [id number] myocardial infarction #2 Ischemic cardiomyopathy, EF 30-35% #3 History of coronary artery bypass grafting and subsequent stent placement to [facility] x2 2011 and 2014 with bare metal stent #4 Hypotension, ongoing despite midodrine #5 COPD #6 Dyslipidemia #7Chronic nicotine dependence #8 History of bladder cancer Plan Patient will be scheduled to undergo cardiac catheterization tomorrow, the risks and benefits were explained to him in detail and he is willing to proceed. Further recommendations to follow. DNP note has been reviewed, I agree with a documented findings and plan of care. Patient was seen and examined.
[2019-04-15] MEDS ORDERED: ATORVASTATIN 80 MG TAB PO STA (15:24)
[2019-04-15] MEDS ORDERED: SODIUM CHLORIDE 0.9% 1,000 ML in EMPTY BAG 1 BAG IV ONE (15:24)
[2019-04-15] MEDS ORDERED: ALPRAZolam 0.5 MG TAB PO PRN (15:24)
[2019-04-15] MEDS ORDERED: ALPRAZolam 0.25 MG TAB PO PRN (15:24)
[2019-04-15] MEDS ORDERED: ASPIRIN 325 MG TAB PO STA (15:24)
[2019-04-15] MEDS ORDERED: NITROGLYCERIN SL TABS 0.4 MG TAB SUBLINGUAL PRN (15:24)
[2019-04-15 16:39] LABS: African American GFR (CKD) >90 (>60 ml/min/1.73 sqM); Anion Gap 6 mmol/L; Blood Urea Nitrogen 18 mg/dL (9-20); Calcium 8.8 mg/dL (8.4-10.2); Carbon Dioxide 27 mmol/L (22-30); Chloride 105 mmol/L (98-107); Glucose 127 mg/dL (74-99); Potassium 4.1 mmol/L (3.5-5.1); Sodium 138 mmol/L (137-145)
[2019-04-15] MEDS: ATORVASTATIN 20 MG TAB PO SCH (20:53)
[2019-04-16] MEDS: MIDODRINE 5 MG TAB PO SCH ×3 (06:08→16:47)
[2019-04-16] MEDS: LEVOTHYROXINE 112 MCG TAB PO SCH (06:08)
[2019-04-16] MEDS: FLUDROCORTISONE 0.1 MG TAB PO SCH (06:09)
[2019-04-16] MEDS: PANTOPRAZOLE 40 MG TABLET PO SCH ×2 (06:09→16:47)
[2019-04-16] MEDS: METOPROLOL TARTRATE 12.5 MG TAB PO SCH ×2 (06:09→20:53)
[2019-04-16] MEDS: MONTELUKAST 10 MG TAB PO SCH (06:09)
[2019-04-16] MEDS: ASPIRIN 81 MG PO SCH (06:09)
[2019-04-16] MEDS: OXYBUTYNIN XL 5 MG TAB.ER.24 PO SCH (06:10)
[2019-04-16] MEDS: PHENAZOPYRIDINE 200 MG TAB PO SCH ×3 (06:10→20:54)
[2019-04-16] MEDS: SERTRALINE 50 MG TAB PO SCH (06:10)
[2019-04-16 06:28] LABS: African American GFR (CKD) >90 (>60 ml/min/1.73 sqM); Anion Gap 5 mmol/L; Blood Urea Nitrogen 18 mg/dL (9-20); Calcium 8.4 mg/dL (8.4-10.2); Carbon Dioxide 27 mmol/L (22-30); Chloride 108 mmol/L (98-107); Glucose 100 mg/dL (74-99); Potassium 3.7 mmol/L (3.5-5.1); Sodium 140 mmol/L (137-145)
--- NOTE | 2019-04-16 08:32 | CDI ---
Documentation Clarification Form Date: 04/16/2019 8:12:46 AM From: Brook Ferrer CCS, CCDS Admit Date: 04/08/2019 5:55:00 PM Patient Name: Carolee Pedersen Visit Number: [id number] Discharge Date: ATTENTION: The Clinical Documentation Specialists (CDI) and [facility] Coding Staff appreciate your assistance in clarifying documentation. Please respond to the clarification below the line at the bottom and electronically sign. The CDI & [facility] Coding staff will review the response and follow-up if needed. Please note: Queries are made part of the Legal Health Record. If you have any questions, please contact the author of this message via ITS. Dr. Rosanna Guaman or Dr. John Gill: Per the 04/09 Cardiology Consult: "His EKGs did not reveal any acute changes. However, his troponin values showed findings consistent with type II non-STEMI." Per the subsequent cardiology and attending progress notes: "Trk-KE-xijhzozi myocardial infarction." and "Elevated troponin and possibility of non-ST elevation myocardial echocardiogram cardiac exam results as mentioned above, other differential illness stress-induced cardiomyopathy." Per subsequent documentation status post heart cath: acute non ST segment elevation myocardial infarction. Patient History/Risk Factors: Bladder cancer, CAD w/angina, COPD, GERD, Hyperlipidemia, [place], Pneumonia, BPH, Sleep Apnea, previous CABG & current smoker. Clinical Indicators: "78-year-old the mail was recently diagnosed with bladder cancer after hematuria patient was undergoing cystoscopy received the propofol for sedation became hypotensive was transferred to the hospital was admitted to ICU..." Troponin: 0.389^^, 1.820^^, 1.040^^ EKG Results: R 98 sinus rhythm with fusion complexes, Nonspecfic ST & t wave abnormality, abnormal EKG. Treatment: IV Norepinephrine, IV fluid rate 20, INH, IV Lasix, INH Albuterol Consult: Pulmonary, Cardiology, Urology In order to capture the severity of condition and necessary documentation specificity, please clarify: Type of Infarction: NSTEMI or evolved to NSTEMI Type II Myocardial Infarction o Due to: Heart Failure Shock Other Unable to determine Unable to determine Other Condition, please specify (Last Revision: June 2017) NSTEMI MTDD
[2019-04-16] MEDS ORDERED: LIDOCAINE 1% INJ 10MG/ML (20 ML MDV) ONE (08:33)
[2019-04-16] MEDS: IPRATROPIUM-ALBUTEROL 3 ML NEB INHALATION SCH ×3 (08:36→20:13)
[2019-04-16] MEDS: SYMBICORT 160-4.5 MCG INHALER INHALATION SCH ×2 (08:36→20:13)
[2019-04-16] MEDS ORDERED: diphenhydrAMINE 50 MG/ML 1 ML VIAL ONE (09:01)
[2019-04-16] MEDS ORDERED: methylPREDNISolone SOD SUCCI 125 MG/2 ML VIAL ONE (09:01)
[2019-04-16] MEDS ORDERED: diphenhydrAMINE 50 MG/ML 1 ML VIAL IVP ONE (09:02)
[2019-04-16] MEDS ORDERED: IV FLUID CONTINUATION 900 ML IV ONE (09:05)
[2019-04-16] MEDS ORDERED: methylPREDNISolone SOD SUCCI 125 MG/2 ML VIAL IV ONE (09:05)
[2019-04-16] MEDS ORDERED: IOPAMIDOL-370 50ML BTL INJ ONE (09:39)
[2019-04-16] MEDS ORDERED: IOPAMIDOL-370 125ML BTL INJ ONE (09:40)
[2019-04-16] MEDS ORDERED: RX INFO: IV CONTRAST WAS GIVEN 1 EACH MISC MISCELLANE PRN (09:53)
--- NOTE | 2019-04-16 10:03 | P.CARDCATH ---
Date of Procedure: 04/16/19 Preoperative Diagnosis: Hypertension. Non-STEMI and cardiomyopathy requiring preop clearance Postoperative Diagnosis: Multivessel coronary artery disease, not requiring any intervention Description of Procedure: HISTORY: This is a 79-year-old gentleman with history of ischemic heart disease with previous bypass surgery who was recently brought to the hospital for prostate surgery. During induction, patient became extremely hypotensive and the procedure was canceled. Subsequent cardiac enzyme studies showed elevation of the troponin, consistent with possible non-STEMI or apical ballooning syndrome. Patient is advised to have a cardiac catheterization for definitive diagnosis. CONSENT:I have discussed the risks, benefits and alternative therapies for the above-mentioned procedure and for both sedation/analgesia as well as necessary blood product administration, if indicated, as they pertain to this patient. The patient has indicated understanding and acceptance of the risks and procedures discussed. PROCEDURE: Patient was brought to the lab in a fasting state. Patient was given some IV Benadryl and Solu-Medrol because of history of hives with the dye in the past.. The right groin is infiltrated with lidocaine and right femoral artery was entered using Seldinger technique. A 6-[place] catheter was left in place and selective coronary arteriography and left ventriculography was performed. Patient tolerated the procedure well. Femoral angiogram was performed and manual compression was applied for hemostasis. No immediate complications were noted and patient was transferred to [facility] in a stable condition Conscious Sedation: Versed 0mg Fentanyl 0 g Duration 37minutes HEMODYNAMICS: The aortic pressure is about 90/60. Left ankle end-diastolic pressure is about 6-10. There is no gradient across the aortic valve SELECTIVE CORONARY ARTERIOGRAPHY: LEFT MAIN: Relatively short and free of significant disease THE LEFT ANTERIOR DESCENDING CORONARY ARTERY:. This is a good caliber vessel giving rise good-sized septal branch. The LAD has mild disease proximally and in midportion without any critical lesion. There appears to be total occlusion of the RODRIGUEZ graft to the LAD THE LEFT CIRCUMFLEX AND IS CORONARY ARTERY: This is totally occluded proximally THE RIGHT CORONARY ARTERY:. This is totally occluded proximally. The RODRIGUEZ GRAFT TO THE LAD: Totally occluded in the midportion. THE VEIN GRAFT TO THE RCA: Totally occluded proximally. The vein graft to the diagonal/OM: Patent at the proximal and distal anastomosis and throughout its length. There appears to be patent stents in the body of the vein graft. THE VEIN GRAFT TO THE CIRCUMFLEX: This is patent at the proximal and distal anastomosis without any critical lesions in the body. Distally the circumflex appears to be small in caliber but free of any occlusive disease. LEFT VENTRICULOGRAPHY: This is performed in 30 right anterior oblique projection. This revealed normal-sized cardiac silhouette with hypokinesis of the posterior basal segment with an ejection fraction of about 50% FINAL IMPRESSION:. Multivesse coronary artery disease with a total occlusion of the proximal circumflex and also proximal right coronary artery. The LAD seems to be free of any significant occlusive disease. The RODRIGUEZ graft to the LAD is totally occluded and vein graft to the right coronary artery is totally occluded. The vein graft to the diagonal/OM and to the circumflex are patent. LV function is mildly impaired PLAN: Maximum medical therapy and risk factor modification PROGNOSIS:. Fair
--- NOTE | 2019-04-16 15:39 | P.PN ---
Subjective Progress Note Date: 04/16/19 Principal diagnosis: This is an 78-year-old male who was admitted for hypotension and is being closely monitored. Patient still remains on 2-3 L of oxygen via nasal cannula with shortness of breath. Patient denies any chest pains or palpitations at this time. Patient is being followed by cardiology and urology as well. Patient was recently diagnosed with bladder cancer and was to undergo a cystoscopy and became hypotensive. Patient had a brief stay in the ICU and was on pressors for the hypotension. Patient is currently not on any drips at this time. Patient is drinking and eating normally with no issues. Patient's blood pressure remains in the low 90s systolic. Patient is asymptomatic at this time. Patient is sitting comfortably in the recliner at the bedside with his legs elevated watching TV. Per nursing staff the patient is being moved to the selective cardiac unit for closer monitoring. Will continue to monitor closely. Repeat chest x-ray is ordered for the a.m. 04/16/2019 Patient was taken downstairs for cardiac catheterization this morning and was recently brought back to the unit. Patient is still on 3 L of oxygen via nasal cannula. We will continue to monitor. His blood pressure is stabilized patient may continue on IV Lasix 20 mg this evening. Would like to switch to oral Lasix tomorrow and to continue weaning off oxygen as he doesn't normally require oxygen at home. Patient denies any chest pain, or palpitations at this time. Patient denies being short of breath but is currently still on oxygen via nasal cannula. Patient denies any nausea or vomiting and is awaiting to eat as he just returned from cardiac cath. Patient is afebrile. Cardiology is following closely. Guarded prognosis. Objective - Vital Signs Vital signs: Vital Signs Temp 98.1 F 04/16/19 08:00 Pulse 65 04/16/19 08:00 Resp 18 04/16/19 12:00 BP 88/49 04/16/19 08:00 Pulse Ox 92 L 04/16/19 08:00 Intake & Output 04/15/19 04/16/19 04/16/19 18:59 06:59 18:59 Intake Total 480 560 630 Output Total 600 525 100 Balance -120 35 530 Weight 68.6 kg Intake: IV 560 150 Sodium Chloride 0.9% 1, 560 000 ml @ 20 mls/hr IV . Q24H LOUIE Rx#:[id number] Oral 480 480 Output: Urine 600 525 100 Other: Voiding Method Urinal Urinal Urinal Incontinent Incontinent Incontinent # Voids 0 1 # Bowel Movements 0 - Exam Gen: This is a 78-year-old male lying in bed in no acute distress. Patient is currently on 3 L of oxygen via nasal cannula and 92% HEENT: Head is atraumatic, normocephalic. Pupils equal, round. Sclerae is anicteric. NECK: Supple. No JVD. No lymphadenopathy. No thyromegaly. LUNGS: Bibasilar crackles noted. No wheezes or rhonchi. No intercostal retractions. HEART: Regular rate and rhythm. No murmur. ABDOMEN: Soft. Bowel sounds are present. No masses. No tenderness. EXTREMITIES: 1+ pedal edema. No calf tenderness. NEUROLOGICAL: Patient is awake, alert and oriented x3. Cranial nerves 2 through 12 are grossly intact. - Labs CBC & Chem 7: 04/13/19 06:01 04/16/19 05:58 Labs: Abnormal Lab Results - Last 24 Hours (Table) 04/15/19 04/16/19 Range/Units 15:22 05:58 Chloride 108 H (98-107) mmol/L Glucose 127 H 100 H (74-99) mg/dL Assessment and Plan Assessment: Hypotension secondary to anesthetic agent, patient is off pressors. We will continue to monitor vital signs closely. Elevated troponin possibility of non-ST elevation myocardial infarction. Cardiology is following closely, patient may have stress-induced cardiomyopathy Congestive heart failure with chronic systolic dysfunction or acute systolic dysfunction with acute exacerbation. Patient did receive a low-dose of IV Lasix. Blood pressure remains in the low 90s systolic. Will consider oral Lasix in the morning Bladder cancer will require cystoscopy eventually once cleared by cardiology and stable Coronary artery disease: Patient underwent cardiac catheterization this morning, will await report from cardiology Sleep apnea Hyperlipidemia Gastroesophageal reflux disease Benign prostatic hypertrophy Hypothyroidism GI prophylaxis: Protonix Recommendations and discussion Recommend continue current medications and symptomatic treatment. Will continue to monitor closely of labs and vital signs. Guarded prognosis. Cardiology is following closely. Further recommendations to follow.
[2019-04-16] MEDS: SODIUM CHLORIDE 0.9% 1,000 ML IV SCH ×2 (16:47→23:57)
[2019-04-16] MEDS: ATORVASTATIN 20 MG TAB PO SCH (20:54)
[2019-04-17] MEDS: MIDODRINE 5 MG TAB PO SCH ×3 (06:25→17:29)
[2019-04-17] MEDS: LEVOTHYROXINE 112 MCG TAB PO SCH (06:25)
[2019-04-17] MEDS: PANTOPRAZOLE 40 MG TABLET PO SCH ×2 (06:25→17:29)
[2019-04-17] MEDS: SYMBICORT 160-4.5 MCG INHALER INHALATION SCH ×2 (08:18→19:49)
[2019-04-17] MEDS: IPRATROPIUM-ALBUTEROL 3 ML NEB INHALATION SCH ×3 (08:18→19:49)
[2019-04-17] MEDS: METOPROLOL TARTRATE 12.5 MG TAB PO SCH (09:29)
[2019-04-17] MEDS: MONTELUKAST 10 MG TAB PO SCH (09:29)
[2019-04-17] MEDS: OXYBUTYNIN XL 5 MG TAB.ER.24 PO SCH (09:29)
[2019-04-17] MEDS: FLUDROCORTISONE 0.1 MG TAB PO SCH (09:29)
[2019-04-17] MEDS: SERTRALINE 50 MG TAB PO SCH (09:29)
[2019-04-17] MEDS: ASPIRIN 81 MG PO SCH (09:29)
[2019-04-17] MEDS: PHENAZOPYRIDINE 200 MG TAB PO SCH ×3 (09:30→21:53)
[2019-04-17 14:04] VITALS: BMI 24.3
--- NOTE | 2019-04-17 15:00 | P.PN ---
Subjective Progress Note Date: 04/17/19 This is a pleasant 78-year-old male past medical history significant for coronary artery disease s/p bypass grafting and subsequent stent placements to SVG with bare metal stent 2014 and prior to that in 2011 SAEED to SVG. He also has history of abdominal aortic aneurysm, dyslipidemia, COPD, hypothryoidism and chronic nicotine dependence. He is being seen today in follow-up on the medical/surgical unit. He was initially in the ICU after going unresponsive during TURP procedure with profound hypotension requiring levophed. There was also noted to troponin elevation in the absence of anginal symptoms however echocardiogram obtained revealed impaired LV systolic function. Catheterization reports received from Dr. Kumar in 2014 revealed left main with a 50-60% distal stenosis, LAD with a 50-60% mid stenosis, 30% proximal stenosis, SVG to anterolateral branch with an 80-90% mid stenosis, circumflex with a total proximal occlusion, SVG to OM 20-30% proximal stenosis, patency at the site of the prior stent placement in the distal segment, RCA is totally occluded proximally, SVG to RCA proximal occlusion thought to be chronic, RODRIGUEZ to the LAD with no significant occlusion, ejection fraction at that time was 55%. At that time he underwent successful stent placement of the SVG to the anterior lateral distribution with a bare metal stent was noted to be margination of the contrast at the distal segment of the stent which did clear with ELI-3 flow to the anterolateral branch. Patient was seen and examined today, sitting up in the chair, denies any chest pain, no shortness of breath. Dr. Cuadra did have a conversation with the patient regarding the need for cardiac catheterization, giving him the option of having it done here. Patient does wish to undergo cardiac catheterization here, he does understand the risks and the benefits. 04/17 2019 patient underwent a cardiac catheterization yesterday which revealed multivessel coronary artery disease with a total occlusion of the proximal circumflex and also proximal right coronary artery. The LAD seemed to be free of any significant occlusive disease. The RODRIGUEZ graft to the LAD was totally occluded in the vein graft to the right coronary artery is totally occluded. The vein graft to the diagonal and circumflex are patent in the LV function was mildly impaired, the decision was to treat the patient with medical therapy. Blood pressure this morning was running on the low side 84/50 with a heart rate in the 80s, 91% on 4 L of oxygen.patient is on metoprolol 12-1/2 mg one tablet by mouth twice a day which we will continue. He is also been initiated on Florinef. Objective - Vital Signs Vital signs: Vital Signs Temp 97.4 F L 04/17/19 08:00 Pulse 84 04/17/19 13:05 Resp 16 04/17/19 12:00 BP 83/53 04/17/19 12:00 Pulse Ox 91 L 04/17/19 12:00 Intake & Output 04/16/19 04/17/19 04/17/19 18:59 06:59 18:59 Intake Total 870 598 Output Total 350 475 Balance 520 -475 598 Weight 70.4 kg 70.4 kg Intake: IV 150 Oral 720 598 Output: Urine 350 475 Other: Voiding Method Urinal Urinal Urinal Incontinent Incontinent Incontinent # Voids 1 1 # Bowel Movements 1 1 - Exam GENERAL: The patient is sitting up in recliner appears to be in no acute distress. He is eating lunch and no respiratory distress is noted. NECK: Supple without JVD or thyromegaly. LUNGS: Breath sounds clear to auscultation bilaterally. Respiration equal and unlabored. Diminished bilaterally. HEART: Regular rate and rhythm without murmurs, rubs or gallops. S1 and S2 heard. ABDOMEN: Soft, bowel sounds present, no tenderness. [place] catheter draining ora nge urine. EXTREMITIES: Normal range of motion, no edema. No clubbing or cyanosis. Peripheral pulses intact.right groin is soft, no evidence of any hematoma. - Labs CBC & Chem 7: 04/13/19 06:01 04/16/19 05:58 Assessment and Plan Plan: Assessment and plan #1 [id number] myocardial infarction #2 Ischemic cardiomyopathy, EF 30-35% #3 History of coronary artery bypass grafting and subsequent stent placement to [facility] x2 2011 and 2014 with bare metal stent #4 Hypotension, ongoing despite midodrine #5 COPD #6 Dyslipidemia #7Chronic nicotine dependence #8 History of bladder cancer Plan Patient underwent a cardiac catheterization yesterday, medical therapy advised. From our perspective he should be able to be discharged home today. We will make him a follow-up appointment to see Dr. Kilpatrick in the office post discharge. DNP note has been reviewed, I agree with a documented findings and plan of care. Patient was seen and examined.
--- NOTE | 2019-04-17 18:23 | PN ---
PROGRESS NOTE DATE OF SERVICE: 04/17/2019 This 79-year-old gentleman admitted with hypertension, also had elevated troponin indicative of acute non ST segment elevation myocardial infarction, possibility of stress-induced cardiomyopathy was also noted. Cardiac catheterization done by Cardiology showed multivessel coronary artery disease with total occlusion of the proximal circumflex and proximal RCA. RODRIGUEZ to LAD was totally occluded and vein graft to RCA was totally occluded also. Vein graft to the diagonal and circumflex pattern LV function is mildly impaired. Maximum medical treatment was suggested by Cardiology. PAST MEDICAL HISTORY: Reviewed. REVIEW OF SYSTEMS: Cardiovascular system: As mentioned earlier. Respirations: As mentioned earlier. GI no nausea or vomiting. : As mentioned earlier. CURRENT MEDICATIONS: Reviewed and include: 1. Tylenol 650 q.4 p.r.n. 2. DuoNeb q.i.d. and p.r.n. 3. Xanax 0.5 q.h.s. 4. Aspirin 81 mg. 5. Lipitor 20 mg q.h.s. 6. Symbicort 160/4.5 two puffs b.i.d. 7. Colace 100 mg p.o. daily. 8. Florinef 0.1 daily. 9. Heparin 5000 subcu b.i.d. 10.Synthroid 112 mcg p.o. daily. 11.Lopressor 12.5 mg p.o. b.i.d. 12.ProAmatine 10 mg a.c. t.i.d. that is midodrine. 13.Singulair 10 mg p.o. daily. 14.Nitrostat. 15.Ditropan XL. 16.Protonix. 17. . 18.Zoloft. PHYSICAL EXAMINATION: Patient is alert, oriented x3. The pulse is 82, blood pressure is 83/52, respiration 16, temperature is normal. Pulse ox 91 percent on 4 L. HEENT: Conjunctivae normal. NECK: No JVD. CARDIOVASCULAR: S1, S2 muffled. RESPIRATORY: Breath sounds diminished in the bases. A few scattered rhonchi and crackles. ABDOMEN: Soft, nontender. LEGS: No edema. No swelling. [employer]: No focal deficits. LABS: Sodium 140, potassium 3.7. ASSESSMENT: 1. Elevated troponin, possibly acute non ST segment elevation myocardial infarction status post cardiac catheterization and multivessel disease. 2. Hypotension, multifactorial. 3. Congestive heart failure with chronic systolic dysfunction with acute exacerbation. 4. History of bladder cancer. 5. History of sleep apnea. 6. Hyperlipidemia. 7. History of gastroesophageal reflux disease. 8. Benign prostatic hypertrophy. 9. Hypothyroidism. 10.Anemia. RECOMMENDATIONS AND DISCUSSION: This 79-year-old gentleman who presented with multiple complex medical issues, we will monitor the patient closely continue the current management and symptomatic treatment. Patient continues to be hypotensive, I recommend metoprolol once daily and continue to monitor. Otherwise, continue with the rest of the medications. The prognosis extremely guarded because of multiple medical issues as described above. Continue with Florinef and midodrine. Further recommendations to follow. See orders for details. Closely follow with Cardiology. PETER / KALYN: [id number] /
[2019-04-17] MEDS: HEPARIN SODIUM,PORCINE 5,000 UNIT/ML 1 ML VIAL SQ SCH (19:51)
[2019-04-17] MEDS: ATORVASTATIN 20 MG TAB PO SCH (19:51)
[2019-04-18] MEDS: PANTOPRAZOLE 40 MG TABLET PO SCH ×2 (06:36→18:11)
[2019-04-18] MEDS: LEVOTHYROXINE 112 MCG TAB PO SCH (06:36)
[2019-04-18] MEDS: MIDODRINE 5 MG TAB PO SCH ×3 (06:36→18:08)
[2019-04-18] MEDS: SYMBICORT 160-4.5 MCG INHALER INHALATION SCH (07:39)
[2019-04-18] MEDS: IPRATROPIUM-ALBUTEROL 3 ML NEB INHALATION SCH ×2 (07:39→13:09)
[2019-04-18] MEDS: ASPIRIN 81 MG PO SCH (08:36)
[2019-04-18] MEDS: SERTRALINE 50 MG TAB PO SCH (08:36)
[2019-04-18] MEDS: OXYBUTYNIN XL 5 MG TAB.ER.24 PO SCH (08:37)
[2019-04-18] MEDS: HEPARIN SODIUM,PORCINE 5,000 UNIT/ML 1 ML VIAL SQ SCH (08:37)
[2019-04-18] MEDS: PHENAZOPYRIDINE 200 MG TAB PO SCH ×2 (08:38→18:08)
[2019-04-18] MEDS: MONTELUKAST 10 MG TAB PO SCH (08:43)
[2019-04-18 08:50] VITALS: RESP 16; TEMP 97.3
[2019-04-18] MEDS ORDERED: METOPROLOL TARTRATE 12.5 MG TAB PO SCH (09:00)
[2019-04-18] MEDS ORDERED: FLUDROCORTISONE 0.1 MG TAB PO SCH (09:00)
[2019-04-18] MEDS ORDERED: SODIUM CHLORIDE 0.9% 500 ML 500 ML IV ONE (12:16)
--- NOTE | 2019-04-18 12:42 | CDI ---
Documentation Clarification Form Date: 04/18/2019 12:27:36 PM From: Brook Ferrer CCS, CCDS Admit Date: 04/13/2019 3:06:00 PM Patient Name: Qian Pathak Visit Number: [id number] Discharge Date: ATTENTION: The Clinical Documentation Specialists (CDI) and [facility] Coding Staff appreciate your assistance in clarifying documentation. Please respond to the clarification below the line at the bottom and electronically sign. The CDI & [facility] Coding staff will review the response and follow-up if needed. Please note: Queries are made part of the Legal Health Record. If you have any questions, please contact the author of this message via ITS. Dr. Kalpesh Fernandez: Per the History & Physical, the patient was on Protonix but drug was discontinued due to chronic kidney disease. Per the vascular surgeon's progress notes: Acute on chronic kidney disease. History/Risk Factors: Atrial Fibrillation, CAD status post CABG & coronary stents, Angina, DVT, GERD, Hypertension, Stroke with left eye disturbance. Clinical Indicators: Patient was admitted with burning epigastric chest pain, diagnosed with possible CAD status previous CABG and C with SAEED stent this admission. Also has aortic dissection, possible contrast nephropathy, possible drug induced hepatitis, severe mitral regurgitation and GERD. Per the nephrology notes: AMANDA secondary to ATN secondary to hypotension. BUN: 29 - 35 - 46 - 49 - 41 - 25 - 19 - (17) Creatinine: 1.50^ - 1.36^ - 2.68^ - 2.61^ - 1.96^ - 1.22^ - (0.98) - (0.95) GFR: 33 - 16 - 42 - 55 - 57 Patients Baseline BUN/CR/GFR: Unknown or not documented. Treatment: IV Lasix, IV fluid bolus, IV Pepcid, Coumadin started 04/14, IV Apresoline In order to capture the severity of condition, please clarify if the condition signifies: CKD Stage 1 (GFR > 90) CKD Stage 2 (GFR 60-89) CKD Stage 3 (GFR 30-59) CKD Stage 4 (GFR 15-29) CKD Stage 5 (GFR <15) CKD ruled out Other, please specify Unable to determine (Last Revision: December 2017) MTDD
--- NOTE | 2019-04-18 14:39 | P.PN ---
Subjective Progress Note Date: 04/18/19 This is a pleasant 78-year-old male past medical history significant for coronary artery disease s/p bypass grafting and subsequent stent placements to SVG with bare metal stent 2014 and prior to that in 2011 SAEED to SVG. He also has history of abdominal aortic aneurysm, dyslipidemia, COPD, hypothryoidism and chronic nicotine dependence. He is being seen today in follow-up on the medical/surgical unit. He was initially in the ICU after going unresponsive during TURP procedure with profound hypotension requiring levophed. There was also noted to troponin elevation in the absence of anginal symptoms however echocardiogram obtained revealed impaired LV systolic function. Catheterization reports received from Dr. Kumar in 2014 revealed left main with a 50-60% distal stenosis, LAD with a 50-60% mid stenosis, 30% proximal stenosis, SVG to anterolateral branch with an 80-90% mid stenosis, circumflex with a total proximal occlusion, SVG to OM 20-30% proximal stenosis, patency at the site of the prior stent placement in the distal segment, RCA is totally occluded proximally, SVG to RCA proximal occlusion thought to be chronic, RODRIGUEZ to the LAD with no significant occlusion, ejection fraction at that time was 55%. At that time he underwent successful stent placement of the SVG to the anterior lateral distribution with a bare metal stent was noted to be margination of the contrast at the distal segment of the stent which did clear with ELI-3 flow to the anterolateral branch. Patient was seen and examined today, sitting up in the chair, denies any chest pain, no shortness of breath. Dr. Cuadra did have a conversation with the patient regarding the need for cardiac catheterization, giving him the option of having it done here. Patient does wish to undergo cardiac catheterization here, he does understand the risks and the benefits. 04/17 2019 patient underwent a cardiac catheterization yesterday which revealed multivessel coronary artery disease with a total occlusion of the proximal circumflex and also proximal right coronary artery. The LAD seemed to be free of any significant occlusive disease. The RODRIGUEZ graft to the LAD was totally occluded in the vein graft to the right coronary artery is totally occluded. The vein graft to the diagonal and circumflex are patent in the LV function was mildly impaired, the decision was to treat the patient with medical therapy. Blood pressure this morning was running on the low side 84/50 with a heart rate in the 80s, 91% on 4 L of oxygen.patient is on metoprolol 12-1/2 mg one tablet by mouth twice a day which we will continue. He is also been initiated on Florinef. 04/18/2019 Patient was seen and examined this morning, feels well, blood pressure running 88/40, heart rate in the 70s, 90% on 3 L. He denies any dizziness or lightheadedness, overall states he's feeling quite well. Will continue with the Florinef and the midodrine, discontinue the beta yue, the patient a fluid bolus today. If stable later this afternoon he may be able to be discharged home from our perspective. Objective - Vital Signs Vital signs: Vital Signs Temp 97.3 F L 04/18/19 08:00 Pulse 79 04/18/19 14:34 Resp 16 04/18/19 14:34 BP 88/48 04/18/19 14:34 Pulse Ox 90 L 04/18/19 12:00 Intake & Output 04/17/19 04/18/19 04/18/19 18:59 06:59 18:59 Intake Total 1678 598 Output Total 700 1025 Balance 1678 -700 -427 Weight 70.4 kg 71.1 kg Intake: Oral 1678 598 Output: Urine 700 1025 Other: Voiding Method Urinal Urinal Urinal Incontinent Incontinent Incontinent # Voids 1 1 # Bowel Movements 1 - Exam GENERAL: The patient is sitting up in recliner appears to be in no acute distress. He is eating lunch and no respiratory distress is noted. NECK: Supple without JVD or thyromegaly. LUNGS: Breath sounds clear to auscultation bilaterally. Respiration equal and unlabored. Diminished bilaterally. HEART: Regular rate and rhythm without murmurs, rubs or gallops. S1 and S2 heard. ABDOMEN: Soft, bowel sounds present, no tenderness. [place] catheter draining orange urine. EXTREMITIES: Normal range of motion, no edema. No clubbing or cyanosis. Peripheral pulses intact.right groin is soft, no evidence of any hematoma. - Labs CBC & Chem 7: 04/13/19 06:01 04/16/19 05:58 Assessment and Plan Plan: Assessment and plan #1 [id number] myocardial infarction #2 Ischemic cardiomyopathy, EF 30-35% #3 History of coronary artery bypass grafting and subsequent stent placement to SVG x2 2011 and 2015 with bare metal stent #4 Hypotension, ongoing despite midodrine #5 COPD #6 Dyslipidemia #7Chronic nicotine dependence #8 History of bladder cancer Plan We will discontinue the beta yue because of hypotension and continue with the Florinef and midodrine. Give the patient a fluid bolus and plan for possible discharge home later today if stable. DNP note has been reviewed, I agree with a documented findings and plan of care. Patient was seen and examined.
[2019-04-18 17:54] VITALS: BP 96/61; PULSE 72
--- NOTE | 2019-04-19 08:39 | P.DS ---
Providers Date of admission: 04/08/19 17:55 Expected date of discharge: 04/18/19 Attending physician: Cristobal Navarro MD Consults: 04/08/19 17:54 Consult Physician Routine Consulting Provider: Deven Sandoval Consult Reason/Comments: Hypotension Do you want consulting provider notified?: Already Contacted 04/09/19 10:51 Consult Physician Routine Consulting Provider: Hany Kilpatrick Consult Reason/Comments: hypotension pos troponin Do you want consulting provider notified?: Yes 04/09/19 10:59 Consult Physician Routine Consulting Provider: Satya Swan Consult Reason/Comments: bladder ca familiar to your group/hydronephrosis Do you want consulting provider notified?: Yes Primary care physician: Jess Singleton Hospital Course: Final diagnosis Elevated troponin, possibly acute non-ST segment elevation myocardial infarction status post cardiac catheterization and multivessel disease Hypotension, multifactorial Congestive heart failure with chronic systolic dysfunction with acute exacerbation History of bladder cancer History of sleep apnea Hyperlipidemia History of gastroesophageal reflux disease benign prostatic hypertrophy Hypothyroidism Anemia Discharge disposition Patient is being discharged in a stable condition with guarded diagnosis to home with home care services. Patient remains slightly hypotensive in the high 80s systolic but is asymptomatic. Cardiology is aware and patient is to continue on Midodrine as well as Florinef upon discharge. Patient's beta yue will be discontinued. History of present illness This is an 79-year-old male who was admitted with hypotension and also had elevated troponin levels. During the hospital course once the respiratory system was stabilized patient underwent cardiac catheterization showing multive ssel coronary artery disease with total occlusion of the proximal circumflex and proximal RCA. RODRIGUEZ to LAD was totally occluded and vein graft RCA was totally occluded as well. Vein graft to the diagonal and circumflex pattern LV function is mildly impaired. Per cardiology recommendations maximum medical treatment was suggested. Patient will follow-up with urology for cystoscopy. Patient denies any shortness of breath, chest pain, or palpitations. Patient is normally on 2-3 L of oxygen at home and has maintained that during the hospital stay. Patient states that he becomes slightly short of breath with exertion but has not had any episodes of this today. Patient remains hypotensive but is asymptomatic. Per cardiology patient was given a 500 mL bolus and was reevaluated prior to discharge and remained asymptomatic. Patient will continue with Midodrine and Florinef and will discontinue metoprolol. Patient will follow-up with cardiology this week. Patient is eager and wanting to go home. Patient denies any dizziness, lightheadedness, or headaches at this time. Patient denies any nausea or vomiting and is tolerating diet. Patient has been afebrile. On exam vital signs are stable. Blood pressure is 88/48, pulse is 79, respirations are 16, oxygen saturation is 90-91% on 3 L nasal cannula, temp is 97.3F. Cardio S1 and S2 are muffled. Respiratory system shows diminished breath sounds at the lung bases with a few scattered rhonchi and crackles. Abdomen is soft and nontender. Nervous system shows no focal deficits. Please refer to medication reconciliation sheet for a list of medications. Patient Condition at Discharge: Stable Plan - Discharge Summary Discharge Rx Participant: No New Discharge Prescriptions: New Aspirin 81 mg PO DAILY #30 chew Fludrocortisone [Florinef] 0.2 mg PO DAILY #30 tab Midodrine [ProAmatine] 10 mg PO AC-TID #90 tab Pantoprazole [Protonix] 40 mg PO DAILY #30 tablet. Phenazopyridine [Pyridium] 200 mg PO TID #9 tab Acetaminophen Tab [Tylenol] 650 mg PO Q4HR PRN tab PRN Reason: Fever And/Or Mild Pain Continue Prasugrel [Effient] 10 mg PO DAILY Sertraline [Zoloft] 50 mg PO DAILY Levothyroxine Sodium [Synthroid] 112 mcg PO DAILY Isosorbide Mononitrate ER [Imdur] 30 mg PO DAILY Atorvastatin [Lipitor] 20 mg PO HS Tolterodine ER [Detrol LA] 2 mg PO DAILY Montelukast [Singulair] 10 mg PO DAILY Ipratropium-Albuterol Nebulize [Duoneb 0.5 mg-3 mg/3 ml Soln] 3 ml INHALATION RT-TID Budesonide-Formot 160-4.5 Mcg [Symbicort 160-4.5 Mcg Inhaler] 2 puff INHALATION RT-BID Cranberry Fruit Concentrate [Azo Cranberry] 250 mg PO DAILY Discontinued Aspirin 325 mg PO DAILY Discharge Medication List Atorvastatin [Lipitor] 20 mg PO HS 05/09/17 [History] Isosorbide Mononitrate ER [Imdur] 30 mg PO DAILY 05/09/17 [History] Levothyroxine Sodium [Synthroid] 112 mcg PO DAILY 05/09/17 [History] Prasugrel [Effient] 10 mg PO DAILY 05/09/17 [History] Sertraline [Zoloft] 50 mg PO DAILY 05/09/17 [History] Tolterodine ER [Detrol LA] 2 mg PO DAILY 02/20/19 [History] Ipratropium-Albuterol Nebulize [Duoneb 0.5 mg-3 mg/3 ml Soln] 3 ml INHALATION RT-TID 03/29/19 [History] Montelukast [Singulair] 10 mg PO DAILY 03/29/19 [History] Budesonide-Formot 160-4.5 Mcg [Symbicort 160-4.5 Mcg Inhaler] 2 puff INHALATION RT-BID 04/08/19 [History] Cranberry Fruit Concentrate [Azo Cranberry] 250 mg PO DAILY 04/08/19 [History] Acetaminophen Tab [Tylenol] 650 mg PO Q4HR PRN tab 04/17/19 [Rx] Aspirin 81 mg PO DAILY #30 chew 04/17/19 [Rx] Fludrocortisone [Florinef] 0.2 mg PO DAILY #30 tab 04/17/19 [Rx] Midodrine [ProAmatine] 10 mg PO AC-TID #90 tab 04/17/19 [Rx] Pantoprazole [Protonix] 40 mg PO DAILY #30 tablet. 04/17/19 [Rx] Phenazopyridine [Pyridium] 200 mg PO TID #9 tab 04/17/19 [Rx] Follow up Appointment(s)/Referral(s): Jess Singleton DO [Primary Care Provider] - 04/22/19 11:20 am (Monday) [facility], [NON-STAFF] - As Needed Hany Kilpatrick MD [STAFF PHYSICIAN] - 04/26/19 3:30 pm (Monday -please arrive 15 mins early with ID and medication list) Ambulatory/Diagnostic Orders: Complete Blood Count w/diff [LAB.AMB] Location: None Selected Patient Instructions/Handouts: *Surgery [facility] - After Heart Catheterization - [facility] [employer] Hand Instructions, Left Heart Catheterization (DC), Hypotension (DC) Activity/Diet/Wound Care/Special Instructions: pt needs to see Dr Singleton jordin, Dr Singleton will not sign for home care until pt is seen diet cardiac act limited till f/u home O2 Discharge Disposition: HOME WITH HOME HEALTH SERVICES
== END 2019-04-18 18:38 | disposition home health service (06) | DRG 280 ==
LOC: EC 15:19 → 2SICU 17:55 → 4SSUR 04-11 16:34 → 3SCARD 04-12 15:56
PROVIDERS: ADMIT Internal Medicine; ATTEND Internal Medicine
DX: I21.4 Non-ST elevation (NSTEMI) myocardial infarction (principal); R57.0 Cardiogenic shock; I50.23 Acute on chronic systolic (congestive) heart failure; J96.01 Acute respiratory failure with hypoxia; I25.810 Atherosclerosis of coronary artery bypass graft(s) without angina pectoris; N13.30 Unspecified hydronephrosis; E87.2 Acidosis; C67.9 Malignant neoplasm of bladder, unspecified; D64.9 Anemia, unspecified; I25.5 Ischemic cardiomyopathy; I11.0 Hypertensive heart disease with heart failure; I25.82 Chronic total occlusion of coronary artery; I95.2 Hypotension due to drugs; J43.9 Emphysema, unspecified; E78.00 Pure hypercholesterolemia, unspecified; T41.45XA Adverse effect of unspecified anesthetic, initial encounter; I25.10 Atherosclerotic heart disease of native coronary artery without angina pectoris; N40.0 Benign prostatic hyperplasia without lower urinary tract symptoms; M54.9 Dorsalgia, unspecified; R32 Unspecified urinary incontinence; R31.9 Hematuria, unspecified; E03.9 Hypothyroidism, unspecified; G47.33 Obstructive sleep apnea (adult) (pediatric); K21.9 Gastro-esophageal reflux disease without esophagitis; K64.9 Unspecified hemorrhoids; E78.5 Hyperlipidemia, unspecified; M19.90 Unspecified osteoarthritis, unspecified site; I71.9 Aortic aneurysm of unspecified site, without rupture; I25.2 Old myocardial infarction; F17.210 Nicotine dependence, cigarettes, uncomplicated; Z71.6 Tobacco abuse counseling; Z99.81 Dependence on supplemental oxygen; Z79.82 Long term (current) use of aspirin; Z79.890 Hormone replacement therapy; Z79.02 Long term (current) use of antithrombotics/antiplatelets; Z79.51 Long term (current) use of inhaled steroids; Z79.899 Other long term (current) drug therapy; Z87.01 Personal history of pneumonia (recurrent); Z95.1 Presence of aortocoronary bypass graft; Z99.89 Dependence on other enabling machines and devices; Z85.828 Personal history of other malignant neoplasm of skin; Z98.890 Other specified postprocedural states; Z98.42 Cataract extraction status, left eye; Z98.41 Cataract extraction status, right eye; Z80.3 Family history of malignant neoplasm of breast; Z80.0 Family history of malignant neoplasm of digestive organs; Z91.041 Radiographic dye allergy status
CPT/HCPCS: 36415; 71045; 71250; 74176; 80048; 80053; 80076; 81001; 82533; 82803; 83605; 83690; 83880; 84443; 84484; 85025; 85027; 87040; 93005; 93306; 93459; 94640; 94760; 96365; 96366; 99291

== ENCOUNTER 2019-04-26 01:05 | Inpatient (IN) | payer MEDICARE ==
[2019-04-26] MEDS ORDERED: NALOXONE 0.4 MG/ML 1 ML VIAL IV PRN (01:48)
[2019-04-26] MEDS ORDERED: IBUPROFEN 400 MG TAB PO PRN (01:54)
[2019-04-26] MEDS ORDERED: ACETAMINOPHEN TAB 325 MG TAB PO PRN (01:54)
[2019-04-26 02:01] LABS: ALT 21 U/L (21-72); AST 14 U/L (17-59); African American GFR (CKD) >90 (>60 ml/min/1.73 sqM); Albumin 2.8 g/dL (3.5-5.0); Alkaline Phosphatase 115 U/L (38-126); Anion Gap 4 mmol/L; Blood Urea Nitrogen 15 mg/dL (9-20); Calcium 8.4 mg/dL (8.4-10.2); Carbon Dioxide 29 mmol/L (22-30); Chloride 107 mmol/L (98-107); Glucose 98 mg/dL (74-99); Potassium 3.5 mmol/L (3.5-5.1); Sodium 140 mmol/L (137-145); Total Bilirubin 1.3 mg/dL (0.2-1.3); Total Protein 5.5 g/dL (6.3-8.2)
[2019-04-26 02:07] LABS: Prothrombin Time 10.5 sec (9.0-12.0)
[2019-04-26 02:08] LABS: Partial Thromboplastin Time 25.1 sec (22.0-30.0)
[2019-04-26 02:11] LABS: Anisocytosis Moderate; Basophils % (A) 1 %; Eosinophils # (A) 0.2 k/uL (0-0.7); Eosinophils % (A) 2 %; Hypochromasia Moderate; Lymphocytes % (A) 23 %; MCH 26.7 pg (25.0-35.0); MCHC 30.2 g/dL (31.0-37.0); MCV 88.6 fL (80.0-100.0); Mean Platelet Volume 7.4; Monocytes # (A) 0.4 k/uL (0-1.0); Monocytes % (A) 5 %; Neutrophils # (A) 5.8 k/uL (1.3-7.7); Neutrophils % (A) 68 %; Platelet Count 259 k/uL (150-450); Poikilocytosis Slight; RBC 2.59 m/uL (4.30-5.90); RDW 20.1 % (11.5-15.5); WBC 8.4 k/uL (3.8-10.6)
[2019-04-26 02:24] LABS: HGB 6.9 gm/dL (13.0-17.5)
--- NOTE | 2019-04-26 02:29 | ED ---
Recheck HPI - General Chief Complaint: Recheck/Abnormal Lab/Rx Stated Complaint: abn labs Time Seen by Provider: 04/26/19 01:31 Source: patient Mode of arrival: ambulatory Limitations: no limitations - History of Present Illness Initial Comments: Carolee is a pleasant 79-year-old gentleman recently diagnosed with bladder cancer who was sent to the emergency department today after outpatient labs revealed an acute anemia. Patient reports he's been feeling very fatigued, he reports he can only walk about 10 feet before he becomes winded ports this is happened to him in the past requiring blood transfusion approximately 2-3 years ago. Patient reports he [facility] due to blood was obtained, he was called back by his physician advised that his hemoglobin was very low and he needs to come to the ER for evaluation. Patient denies any chest pain though he does report palpitations generalized weakness, lightheadedness dyspnea which progressively worsen over 2 weeks. Patient reports he's been constipated and has firm brown stools, no melena, no hematochezia. Patient states that due to chronic dysuria he is on Azo so his urine is always discolored yellow. Not noticed any gross blood or blood clots in his urine. Patient does not believe he is currently undergoing any type of therapy for the bladder cancer though the patient is a very poor historian. Patient actually believes he has a mass in his gallbladder and that he is taking in very pills due to chronic constipation. Patient's and son cannot provide any meaningful further medical history. - Related Data Home Medications Medication Instructions Recorded Confirmed Atorvastatin [Lipitor] 20 mg PO HS 05/09/17 04/08/19 Isosorbide Mononitrate ER [Imdur] 30 mg PO DAILY 05/09/17 04/08/19 Levothyroxine Sodium [Synthroid] 112 mcg PO DAILY 05/09/17 04/08/19 Prasugrel [Effient] 10 mg PO DAILY 05/09/17 04/08/19 Sertraline [Zoloft] 50 mg PO DAILY 05/09/17 04/08/19 Tolterodine ER [Detrol LA] 2 mg PO DAILY 02/20/19 04/08/19 Ipratropium-Albuterol Nebulize 3 ml INHALATION RT-TID 03/29/19 04/08/19 [Duoneb 0.5 mg-3 mg/3 ml Soln] Montelukast [Singulair] 10 mg PO DAILY 03/29/19 04/08/19 Budesonide-Formot 160-4.5 Mcg 2 puff INHALATION RT-BID 04/08/19 04/08/19 [Symbicort 160-4.5 Mcg Inhaler] Cranberry Fruit Concentrate [Azo 250 mg PO DAILY 04/08/19 04/08/19 Cranberry] Previous Rx's Medication Instructions Recorded Acetaminophen Tab [Tylenol] 650 mg PO Q4HR PRN tab 04/17/19 Aspirin 81 mg PO DAILY #30 chew 04/17/19 Fludrocortisone [Florinef] 0.2 mg PO DAILY #30 tab 04/17/19 Midodrine [ProAmatine] 10 mg PO AC-TID #90 tab 04/17/19 Pantoprazole [Protonix] 40 mg PO DAILY #30 tablet. 04/17/19 Phenazopyridine [Pyridium] 200 mg PO TID #9 tab 04/17/19 Allergies Allergy/AdvReac Type Severity Reaction Status Date / Time iodine Allergy Rash/Hives Verified 04/26/19 01:14 Review of Systems ROS Statement: Those systems with pertinent positive or pertinent negative responses have been documented in the HPI. ROS Other: All systems not noted in ROS Statement are negative. Past Medical History Past Medical History: Coronary Artery Disease (CAD), Cancer, Chest Pain / Angina, COPD, GERD/Reflux, Hyperlipidemia, Myocardial Infarction ([place]), Osteoarthritis (OA), Pneumonia, Prostate Disorder, Sleep Apnea/CPAP/BIPAP, Thyroid Disorder Additional Past Medical History / Comment(s): BACK PAIN,herniated disc, pinched nerves,emphysema, hemorrhoids,skin cancer, walt cataracts-had sx, thin skin prone to bruises/skin tears. Last Myocardial Infarction Date:: unk History of Any Multi-Drug Resistant Organisms: None Reported Past Surgical History: Coronary Bypass/CABG Additional Past Surgical History / Comment(s): cataracts, 3 vessel cabg, past peg tube since removed." lizbet in penis", hemorrhoids, ?egd. pmh : lap heller myotomy Past Anesthesia/Blood Transfusion Reactions: No Reported Reaction Past Psychological History: No Psychological Hx Reported Smoking Status: Former smoker Past Alcohol Use History: Rare Past Drug Use History: None Reported - Past Family History Mother Family Medical History: Cancer Additional Family Medical History / Comment(s): breast cancer Sister(s) Family Medical History: Cancer Additional Family Medical History / Comment(s): colon cancer Father History Unknown: Yes Additional Family Medical History / Comment(s): pt's father when pt was 3 years old. General Exam - General Exam Comments Initial Comments: Physical Exam GENERAL: Chronically ill-appearing, pale HENT: Normocephalic, Atraumatic. EYES: PERRL, EOMI Conjunctiva pallor PULMONARY: Unlabored respirations. No audible rales rhonchi or wheezing was noted. CARDIOVASCULAR: There is a regular rate and rhythm without any murmurs gallops or rubs. Systolic murmur Well-healed midline sternal scar ABDOMEN: Soft and nontender with normal bowel sounds. SKIN: Pale : Deferred NEUROLOGIC: Patient is alert and oriented x3. Moving all extremities spontaneously MUSCULOSKELETAL: Normal extremities with adequate strength and full range of motion. No lower extremity swelling or edema. No calf tenderness. PSYCHIATRIC: Normal psychiatric evaluation Limitations: no limitations Course Vital Signs 04/26/19 01:08 Temperature 97.5 F L Pulse Rate 76 Respiratory 22 Rate Blood Pressure 103/62 O2 Sat by Pulse 94 L Oximetry Medical Decision Making - Medical Decision Making The patient was seen and evaluated history is obtained from patient and review of medical record Labs from earlier in the day were reviewed and it did reveal the patient a hemoglobin of 6.8, repeat labs and blood transfusion were ordered Patient will consent to blood transfusion he has had blood transfusion in the past Given the patient's advanced age significant anemia and multiple medical ila rbidities I do feel he would benefit from admission to the hospital for further evaluation. Patient is agreeable. Family at bedside was updated. - Lab Data Result diagrams: 04/26/19 01:32 Lab Results 04/26/19 04/26/19 04/26/19 Range/Units 01:32 01:32 01:32 PT 10.5 (9.0-12.0) sec INR 1.0 (<1.2) APTT 25.1 (22.0-30.0) sec Sodium 140 (137-145) mmol/L Potassium 3.5 (3.5-5.1) mmol/L Chloride 107 (98-107) mmol/L Carbon Dioxide 29 (22-30) mmol/L Anion Gap 4 mmol/L BUN 15 (9-20) mg/dL Creatinine 0.75 (0.66-1.25) mg/dL Est GFR (CKD-EPI)AfAm >90 (>60 ml/min/1.73 sqM) Est GFR (CKD-EPI)NonAf 86 (>60 ml/min/1.73 sqM) Glucose 98 (74-99) mg/dL Calcium 8.4 (8.4-10.2) mg/dL Total Bilirubin 1.3 (0.2-1.3) mg/dL AST 14 L (17-59) U/L ALT 21 (21-72) U/L Alkaline Phosphatase 115 (38-126) U/L Total Protein 5.5 L (6.3-8.2) g/dL Albumin 2.8 L (3.5-5.0) g/dL Blood Type Recheck CABO Indicated Spec Expiration Date 04/29/2019 - 2332 Disposition Clinical Impression: Anemia Disposition: ADMITTED IP TO THIS [facility] Condition: Serious Is patient prescribed a controlled substance at d/c from ED?: No Referrals: Jess Singleton DO [Primary Care Provider] - 1-2 days
[2019-04-26 03:32] VITALS: BMI 23.6
[2019-04-26 08:13] VITALS: RESP 16
[2019-04-26] MEDS ORDERED: ISOSORBIDE MONONITRATE ER 30 MG TAB.ER.24H PO SCH (09:00)
[2019-04-26] MEDS ORDERED: PRASUGREL 10 MG TAB PO SCH (09:00)
[2019-04-26] MEDS ORDERED: FLUDROCORTISONE 0.1 MG TAB PO SCH (09:00)
[2019-04-26] MEDS ORDERED: NON-FORMULARY DRUG (Cranberry Fruit Concentrate [Azo Cranberry] 250 MG) PO SCH (09:00)
[2019-04-26] MEDS ORDERED: SERTRALINE 50 MG TAB PO SCH (09:00)
[2019-04-26] MEDS ORDERED: LEVOTHYROXINE 112 MCG TAB PO SCH (09:00)
[2019-04-26] MEDS ORDERED: MONTELUKAST 10 MG TAB PO SCH (09:00)
[2019-04-26] MEDS ORDERED: PANTOPRAZOLE 40 MG TABLET PO SCH (09:00)
[2019-04-26] MEDS ORDERED: ASPIRIN 81 MG PO SCH (09:00)
[2019-04-26] MEDS ORDERED: OXYBUTYNIN XL 5 MG TAB.ER.24 PO SCH (09:00)
[2019-04-26 09:38] VITALS: TEMP 97.2
[2019-04-26] MEDS: PHENAZOPYRIDINE 200 MG TAB PO SCH ×2 (11:00→15:35)
[2019-04-26 11:51] VITALS: BP 107/62; PULSE 69
[2019-04-26] MEDS ORDERED: MIDODRINE 5 MG TAB PO SCH (12:30)
--- NOTE | 2019-04-26 12:38 | XR ---
EXAMINATION TYPE: XR chest 1V portable DATE OF EXAM: 04/26/2019 COMPARISON: Prior chest 04/13/2019 HISTORY: Abnormal chest x-ray, post transfusion TECHNIQUE: Single frontal view of the chest is obtained. FINDINGS: Interstitium is increased and may have progressed in the interval. Heart size is stable. P atient is post median sternotomy. Central venous catheter has been removed. No pneumothorax. Blunting of the costophrenic angle on the right is noted. Perihilar vascular indistinctness is noted. IMPRESSION: Progression of congestive heart failure and pulmonary edema. Right pleural effusion.
--- NOTE | 2019-04-26 13:08 | P.CRDCN ---
History of Present Illness Consult date: 04/26/19 Chief complaint: Shortness of breath History of present illness: This is a pleasant 79-year-old gentleman with a past medical history significant for coronary artery disease and prior coronary artery bypass grafting, hypertension, dyslipidemia, and recent diagnosis of bladder cancer, was transferred from [facility] to [facility] for further evaluation of severe anemia. For the last few days, the patient has not been feeding well. He has been more short of breath. He has been more tired and fatigued. No symptoms of chest pain or chest discomfort. Because of the shortness of breath has gotten worse lately, the patient presented to the emergency room at [facility]. A blood work was performed and revealed severe anemia and the patient was transferred to [facility]. His hemoglobin was around 6. He r eceived 2 units of packed RBC. The repeated hemoglobin is not back yet. The patient overall is feeling better. Earlier this year, he was diagnosed with acute non-ST patient myocardial infarction and he underwent a heart catheterization by Dr. Kilpatrick and that revealed severe occluded right co ronary artery and left circumflex with normal LAD. The RODRIGUEZ to LAD was occluded. The graft to the circumflex was open. He was treated medically for non-STEMI. For some reason he is on dual antiplatelet therapy with aspirin as well as Effient. Currently he denies any symptoms of chest pain or chest discomfort. I am going to DC the Effient, continue the aspirin. From the cardiac vascular standpoint of view, the patient possibly can be discharged home. Past Medical History Past Medical History: Coronary Artery Disease (CAD), Cancer, Chest Pain / Kathleen na, COPD, GERD/Reflux, Hyperlipidemia, Myocardial Infarction ([place]), Osteoarthritis (OA), Pneumonia, Prostate Disorder, Sleep Apnea/CPAP/BIPAP, Thyroid Disorder Additional Past Medical History / Comment(s): BACK PAIN,herniated disc, pinched nerves,emphysema, hemorrhoids,skin cancer, walt cataracts-had sx, thin skin prone to bruises/skin tears. Last Myocardial Infarction Date:: unk History of Any Multi-Drug Resistant Organisms: None Reported Past Surgical History: Coronary Bypass/CABG Additional Past Surgical History / Comment(s): cataracts, 3 vessel cabg, past peg tube since removed." lizbet in penis", hemorrhoids, ?egd. pmh : lap heller myotomy Past Anesthesia/Blood Transfusion Reactions: No Reported Reaction Past Psychological History: No Psychological Hx Reported Additional Psychological History / Comment(s): pt lives with his [address]nd in apt built onto his sons home. has 3 steps to enter it. pt uses [employer] when up. no outside services. no past [employer] service. retires from the [email or web address] at [employer]. Smoking Status: Current every day smoker Past Alcohol Use History: Rare Additional Past Alcohol Use History / Comment(s): started smoking at age 12- has quit here and there. stated if busy outside or on project will smoke 1 ppd, if just sitting at home smokes 2 ppd. in past drank heavy-quit 36 years ago. Past Drug Use History: None Reported - Past Family History Mother Family Medical History: Cancer Additional Family Medical History / Comment(s): breast cancer Sister(s) Family Medical History: Cancer Additional Family Medical History / Comment(s): colon cancer Father History Unknown: Yes Additional Family Medical History / Comment(s): pt's father when pt was 3 years old. Medications and Allergies Home Medications Medication Instructions Recorded Confirmed Type Atorvastatin [Lipitor] 20 mg PO HS 05/09/17 04/26/19 History Isosorbide Mononitrate ER [Imdur] 30 mg PO DAILY 05/09/17 04/26/19 History Levothyroxine Sodium [Synthroid] 112 mcg PO DAILY 05/09/17 04/26/19 History Prasugrel [Effient] 10 mg PO DAILY 05/09/17 04/26/19 History Sertraline [Zoloft] 50 mg PO DAILY 05/09/17 04/26/19 History Tolterodine ER [Detrol LA] 2 mg PO DAILY 02/20/19 04/26/19 History Ipratropium-Albuterol Nebulize 3 ml INHALATION RT-TID 03/29/19 04/26/19 History [Duoneb 0.5 mg-3 mg/3 ml Soln] Montelukast [Singulair] 10 mg PO DAILY 03/29/19 04/26/19 History Budesonide-Formot 160-4.5 Mcg 2 puff INHALATION RT-BID 04/08/19 04/26/19 History [Symbicort 160-4.5 Mcg Inhaler] Cranberry Fruit Concentrate [Azo 250 mg PO DAILY 04/08/19 04/26/19 History Cranberry] Acetaminophen Tab [Tylenol] 650 mg PO Q4HR PRN tab 04/17/19 04/26/19 Rx Aspirin 81 mg PO DAILY #30 chew 04/17/19 04/26/19 Rx Fludrocortisone [Florinef] 0.2 mg PO DAILY #30 tab 04/17/19 04/26/19 Rx Midodrine [ProAmatine] 10 mg PO AC-TID #90 tab 04/17/19 04/26/19 Rx Pantoprazole [Protonix] 40 mg PO DAILY #30 tablet.dr 04/17/19 04/26/19 Rx Phenazopyridine [Pyridium] 200 mg PO TID #9 tab 04/17/19 04/26/19 Rx Allergies Allergy/AdvReac Type Severity Reaction Status Date / Time iodine Allergy Rash/Hives Verified 04/26/19 08:13 Physical Exam Vitals: Vital Signs Temp Pulse Pulse Resp BP BP Pulse Ox 04/26/19 11:50 97.2 F L 69 16 107/62 04/26/19 11:15 97.2 F L 72 16 99/60 94 L 04/26/19 10:08 71 16 94/57 93 L 04/26/19 09:38 97.2 F L 70 16 91/58 94 L 04/26/19 09:28 97.0 F L 79 16 94/56 93 L 04/26/19 08:00 97.7 F 75 16 105/60 94 L 04/26/19 06:53 98 F 75 18 112/62 96 04/26/19 03:57 98 F 70 18 100/57 95 04/26/19 03:34 98.2 F 75 18 111/63 95 04/26/19 03:27 98.2 F 67 18 102/58 97 04/26/19 03:17 98.2 F 71 18 111/63 95 04/26/19 02:55 80 20 97/65 93 L 04/26/19 02:34 98.2 F 85 20 93/52 94 L 04/26/19 01:08 97.5 F L 76 22 103/62 94 L Intake and Output 04/25/19 04/26/19 04/26/19 22:59 06:59 14:59 Intake Total 330 550 Balance 330 550 Intake: Amount of Fluid Infused ( 20 ml) Oral 240 Blood Product 310 310 Rc As-1 Unit 310 [id number] Rc Pheresis 2 As3 Unit 310 [id number] Other: # Voids 1 Weight 78 kg - Constitutional General appearance: no acute distress - Respiratory Respiratory: bilateral: CTA - Cardiovascular Rhythm: regular Heart sounds: normal: S1, S2 Results 04/26/19 01:32 04/26/19 01:32 Cardiac Enzymes 04/26/19 Range/Units 01:32 AST 14 L (17-59) U/L Coagulation 04/26/19 Range/Units 01:32 PT 10.5 (9.0-12.0) sec APTT 25.1 (22.0-30.0) sec CBC 04/26/19 Range/Units 01:32 WBC 8.4 (3.8-10.6) k/uL RBC 2.59 L (4.30-5.90) m/uL Hgb 6.9 L* (13.0-17.5) gm/dL Hct 23.0 L (39.0-53.0) % Plt Count 259 (150-450) k/uL Comprehensive Metabolic Panel 04/26/19 Range/Units 01:32 Sodium 140 (137-145) mmol/L Potassium 3.5 (3.5-5.1) mmol/L Chloride 107 (98-107) mmol/L Carbon Dioxide 29 (22-30) mmol/L BUN 15 (9-20) mg/dL Creatinine 0.75 (0.66-1.25) mg/dL Glucose 98 (74-99) mg/dL Calcium 8.4 (8.4-10.2) mg/dL AST 14 L (17-59) U/L ALT 21 (21-72) U/L Alkaline Phosphatase 115 (38-126) U/L Total Protein 5.5 L (6.3-8.2) g/dL Albumin 2.8 L (3.5-5.0) g/dL Current Medications Generic Name Dose Route Start Last Admin Trade Name Freq PRN Reason Stop Dose Admin Acetaminophen 650 mg 04/26/19 01:54 Tylenol Tab PO Q6HR PRN Mild Pain or Fever > 100.5 Aspirin 81 mg 04/26/19 09:00 04/26/19 11:01 Aspirin PO 81 mg DAILY [facility] Administration Atorvastatin Calcium 20 mg 04/26/19 21:00 Lipitor PO HS [facility] Budesonide/Formoterol Fumarate 2 puff 04/26/19 20:00 Symbicort 160-4.5 Mcg Inhaler INHALATION RT-BID LOUIE Fludrocortisone Acetate 0.2 mg 04/26/19 09:00 04/26/19 11:00 Florinef PO 0.2 mg DAILY LOUIE Administration Isosorbide Mononitrate 30 mg 04/26/19 09:00 04/26/19 09:39 Imdur PO Not Given DAILY [facility] Levothyroxine Sodium 112 mcg 04/26/19 09:00 04/26/19 11:01 Synthroid PO 112 mcg DAILY@0630 LOUIE Administration Midodrine 10 mg 04/26/19 12:30 04/26/19 11:56 Proamatine PO 10 mg AC-TID LOUIE Administration Montelukast Sodium 10 mg 04/26/19 09:00 04/26/19 11:01 Singulair PO 10 mg DAILY [facility] Administration Naloxone HCl 0.2 mg 04/26/19 01:48 Narcan IV Q2M PRN Opioid Reversal Oxybutynin Chloride 5 mg 04/26/19 09:00 04/26/19 11:00 Ditropan Xl PO 5 mg DAILY [facility] Administration Pantoprazole Sodium 40 mg 04/26/19 09:00 04/26/19 11:01 Protonix PO 40 mg DAILY@0730 LOUIE Administration Phenazopyridine HCl 200 mg 04/26/19 09:00 04/26/19 11:00 Pyridium PO 200 mg TID LOU[facility] Administration Sertraline HCl 50 mg 04/26/19 09:00 04/26/19 11:01 Zoloft PO 50 mg DAILY [facility] Administration Intake and Output 04/25/19 04/26/19 04/26/19 22:59 06:59 14:59 Intake Total 330 550 Balance 330 550 Intake: Amount of Fluid Infused ( 20 ml) Oral 240 Blood Product 310 310 Rc As-1 Unit 310 [id number] Rc Pheresis 2 As3 Unit 310 [id number] Other: # Voids 1 Weight 78 kg 04/26/19 01:32 04/26/19 01:32 Assessment and Plan Assessment: Assessment #1 anemia, etiology unknown #2 status post blood transfusion #3 shortness of breath secondary to anemia #4 severe CAD #5 multiple comorbid conditions Plan #1 DC the Effient #2 continue the aspirin #3 the patient can be discharged home Thank you for allowing us participate in his care
[2019-04-26] MEDS ORDERED: FUROSEMIDE 10 MG/ML 4 ML VIAL IV STA (13:43)
[2019-04-26 14:01] LABS: Anisocytosis Slight; HCT 29.5 % (39.0-53.0); Hypochromasia Marked; MCH 28.7 pg (25.0-35.0); MCHC 31.2 g/dL (31.0-37.0); Mean Platelet Volume 7.3; Platelet Count 233 k/uL (150-450); Poikilocytosis Moderate; RDW 18.7 % (11.5-15.5); WBC 10.7 k/uL (3.8-10.6)
[2019-04-26 14:08] LABS: HGB 9.2 gm/dL (13.0-17.5)
--- NOTE | 2019-04-26 14:41 | P.DS ---
Providers Date of admission: 04/26/19 02:11 Attending physician: Derrick Luis MD Consults: 04/26/19 10:08 Consult Physician Routine Consulting Provider: Jared Parada Consult Reason/Comments: Rec rgarding antiplatlet Do you want consulting provider notified?: Yes Primary care physician: Jess Hawkinsarlo [facility] Course: As mentioned in HPI Patient Condition at Discharge: Serious Plan - Discharge Summary New Discharge Prescriptions: New Furosemide [Lasix] 40 mg PO DAILY #1 tablet Continue Sertraline [Zoloft] 50 mg PO DAILY Levothyroxine Sodium [Synthroid] 112 mcg PO DAILY Isosorbide Mononitrate ER [Imdur] 30 mg PO DAILY Atorvastatin [Lipitor] 20 mg PO HS Tolterodine ER [Detrol LA] 2 mg PO DAILY Montelukast [Singulair] 10 mg PO DAILY Ipratropium-Albuterol Nebulize [Duoneb 0.5 mg-3 mg/3 ml Soln] 3 ml INHALATION RT-TID Budesonide-Formot 160-4.5 Mcg [Symbicort 160-4.5 Mcg Inhaler] 2 puff INHALATION RT-BID Cranberry Fruit Concentrate [Azo Cranberry] 250 mg PO DAILY Aspirin 81 mg PO DAILY #30 chew Fludrocortisone [Florinef] 0.2 mg PO DAILY #30 tab Midodrine [ProAmatine] 10 mg PO AC-TID #90 tab Pantoprazole [Protonix] 40 mg PO DAILY #30 tablet. Phenazopyridine [Pyridium] 200 mg PO TID #9 tab Acetaminophen Tab [Tylenol] 650 mg PO Q4HR PRN tab PRN Reason: Fever And/Or Mild Pain Discontinued Prasugrel [Effient] 10 mg PO DAILY Discharge Medication List Atorvastatin [Lipitor] 20 mg PO HS 05/09/17 [History] Isosorbide Mononitrate ER [Imdur] 30 mg PO DAILY 05/09/17 [History] Levothyroxine Sodium [Synthroid] 112 mcg PO DAILY 05/09/17 [History] Sertraline [Zoloft] 50 mg PO DAILY 05/09/17 [History] Tolterodine ER [Detrol LA] 2 mg PO DAILY 02/20/19 [History] Ipratropium-Albuterol Nebulize [Duoneb 0.5 mg-3 mg/3 ml Soln] 3 ml INHALATION RT-TID 03/29/19 [History] Montelukast [Singulair] 10 mg PO DAILY 03/29/19 [History] Budesonide-Formot 160-4.5 Mcg [Symbicort 160-4.5 Mcg Inhaler] 2 puff INHALATION RT-BID 04/08/19 [History] Cranberry Fruit Concentrate [Azo Cranberry] 250 mg PO DAILY 04/08/19 [History] Acetaminophen Tab [Tylenol] 650 mg PO Q4HR PRN tab 04/17/19 [Rx] Aspirin 81 mg PO DAILY #30 chew 04/17/19 [Rx] Fludrocortisone [Florinef] 0.2 mg PO DAILY #30 tab 04/17/19 [Rx] Midodrine [ProAmatine] 10 mg PO AC-TID #90 tab 04/17/19 [Rx] Pantoprazole [Protonix] 40 mg PO DAILY #30 tablet. 04/17/19 [Rx] Phenazopyridine [Pyridium] 200 mg PO TID #9 tab 04/17/19 [Rx] Furosemide [Lasix] 40 mg PO DAILY #1 tablet 04/26/19 [Rx] Follow up Appointment(s)/Referral(s): Jess Singleton DO [Primary Care Provider] - 04/30/19 3:00 pm (APPOINTMENT ON 05/06 CANCELLED AND MOVED TO 04/30) Ambulatory/Diagnostic Orders: Complete Blood Count w/diff [LAB.AMB] Time Frame: 1 Week, Location: None Selected Patient Instructions/Handouts: Anemia (DC) Discharge Disposition: HOME WITH HOME HEALTH SERVICES
--- NOTE | 2019-04-26 14:41 | P.HPIM ---
History of Present Illness 79-year-old pleasant gentleman was admitted secondary to anemia leading to fatigue. Patient had a regular lab tests done by the home care and patient is found to be anemic. Patient is a 2 units of blood transfusion patient the had a chest x-ray today after the blood transfusion which showed pulmonary edema U dose of Lasix because his blood pressure is low patient will be given on the dose of Lasix tomorrow at home and patient will be discharged today. Patient doesn't have any evidence of GI bleed. Patient denied any hematemesis with a cheesy up. Patient is feeling much better now family the patient before discharge patient uses 3-4 L of onset at home and patient is presently on that oxygen. Patient had a recent cardiac catheterization which did not show any significant occlusive disease that needed stenting and patient is on both aspirin and Effient A patient will be discontinued and I discussed with cardiology cardiology evaluate the patient and they recommended to discontinue Effient. Patient is also on meloxicam which will be discontinued and patient can use Tylenol and on as-needed basis and patient will be discharged home with home care today. Review of Systems REVIEW OF SYSTEMS: CONSTITUTIONAL: No fever, HEENT: No recent visual problems or hearing problems. Denied any sore throat. CARDIOVASCULAR: No chest pain, orthopnea, PND, no palpitations, no syncope. PULMONARY: No shortness of breath, no cough, no hemoptysis. GASTROINTESTINAL: No diarrhea, no nausea, no vomiting, no abdominal pain. NEUROLOGICAL: No headaches, no weakness, no numbness. HEMATOLOGICAL: Denies any bleeding or petechiae. GENITOURINARY: Denies any burning micturition, frequency, or urgency. MUSCULOSKELETAL/RHEUMATOLOGICAL: Denies any joint pain, swelling, or any muscle pain. ENDOCRINE: Denies any polyuria or polydipsia. The rest of the 14-point review of systems is negative. Past Medical History Past Medical History: Coronary Artery Disease (CAD), Cancer, Chest Pain / Angina, COPD, GERD/Reflux, Hyperlipidemia, Myocardial Infarction (MD), Osteoarthritis (OA), Pneumonia, Prostate Disorder, Sleep Apnea/CPAP/BIPAP, Thyroid Disorder Additional Past Medical History / Comment(s): BACK PAIN,herniated disc, pinched nerves,emphysema, hemorrhoids,skin cancer, walt cataracts-had sx, thin skin prone to bruises/skin tears. Last Myocardial Infarction Date:: unk History of Any Multi-Drug Resistant Organisms: None Reported Past Surgical History: Coronary Bypass/CABG Additional Past Surgical History / Comment(s): cataracts, 3 vessel cabg, past peg tube since removed." lizbet in penis", hemorrhoids, ?egd. pmh : lap heller myotomy Past Anesthesia/Blood Transfusion Reactions: No Reported Reaction Past Psychological History: No Psychological Hx Reported Additional Psychological History / Comment(s): pt lives with his 2nd in apt built onto his sons home. has 3 steps to enter it. pt uses [employer] when up. no outside services. no past [employer] service. retires from the [employer] at [employer]. Smoking Status: Current every day smoker Past Alcohol Use History: Rare Additional Past Alcohol Use History / Comment(s): started smoking at age 12- has quit here and there. stated if busy outside or on project will smoke 1 ppd, if just sitting at home smokes 2 ppd. in past drank heavy-quit 36 years ago. Past Drug Use History: None Reported - Past Family History Mother Family Medical History: Cancer Additional Family Medical History / Comment(s): breast cancer Sister(s) Family Medical History: Cancer Additional Family Medical History / Comment(s): colon cancer Father History Unknown: Yes Additional Family Medical History / Comment(s): pt's father when pt was 3 years old. Medications and Allergies Home Medications Medication Instructions Recorded Confirmed Type Atorvastatin [Lipitor] 20 mg PO HS 05/09/17 04/26/19 History Isosorbide Mononitrate ER [Imdur] 30 mg PO DAILY 05/09/17 04/26/19 History Levothyroxine Sodium [Synthroid] 112 mcg PO DAILY 05/09/17 04/26/19 History Sertraline [Zoloft] 50 mg PO DAILY 05/09/17 04/26/19 History Tolterodine ER [Detrol LA] 2 mg PO DAILY 02/20/19 04/26/19 History Ipratropium-Albuterol Nebulize 3 ml INHALATION RT-TID 03/29/19 04/26/19 History [Duoneb 0.5 mg-3 mg/3 ml Soln] Montelukast [Singulair] 10 mg PO DAILY 03/29/19 04/26/19 History Budesonide-Formot 160-4.5 Mcg 2 puff INHALATION RT-BID 04/08/19 04/26/19 History [Symbicort 160-4.5 Mcg Inhaler] Cranberry Fruit Concentrate [Azo 250 mg PO DAILY 04/08/19 04/26/19 History Cranberry] Acetaminophen Tab [Tylenol] 650 mg PO Q4HR PRN tab 04/17/19 04/26/19 Rx Aspirin 81 mg PO DAILY #30 chew 04/17/19 04/26/19 Rx Fludrocortisone [Florinef] 0.2 mg PO DAILY #30 tab 04/17/19 04/26/19 Rx Midodrine [ProAmatine] 10 mg PO AC-TID #90 tab 04/17/19 04/26/19 Rx Pantoprazole [Protonix] 40 mg PO DAILY #30 tablet. 04/17/19 04/26/19 Rx Phenazopyridine [Pyridium] 200 mg PO TID #9 tab 04/17/19 04/26/19 Rx Furosemide [Lasix] 40 mg PO DAILY #1 tablet 04/26/19 Rx Allergies Allergy/AdvReac Type Severity Reaction Status Date / Time iodine Allergy Rash/Hives Verified 04/26/19 08:13 Physical Exam Vitals: Vital Signs Temp Pulse Pulse Resp BP BP Pulse Ox 04/26/19 11:50 97.2 F L 69 16 107/62 04/26/19 11:15 97.2 F L 72 16 99/60 94 L 04/26/19 10:08 71 16 94/57 93 L 04/26/19 09:38 97.2 F L 70 16 91/58 94 L 04/26/19 09:28 97.0 F L 79 16 94/56 93 L 04/26/19 08:00 97.7 F 75 16 105/60 94 L 04/26/19 06:53 98 F 75 18 112/62 96 04/26/19 03:57 98 F 70 18 100/57 95 04/26/19 03:34 98.2 F 75 18 111/63 95 04/26/19 03:27 98.2 F 67 18 102/58 97 04/26/19 03:17 98.2 F 71 18 111/63 95 04/26/19 02:55 80 20 97/65 93 L 04/26/19 02:34 98.2 F 85 20 93/52 94 L 04/26/19 01:08 97.5 F L 76 22 103/62 94 L Intake and Output 04/25/19 04/26/19 04/26/19 22:59 06:59 14:59 Intake Total 330 790 Balance 330 790 Intake: Amount of Fluid Infused ( 20 ml) Oral 480 Blood Product 310 310 Rc As-1 Unit 310 [id number] Rc Pheresis 2 As3 Unit 310 [id number] Other: # Voids 1 1 # Bowel Movements 1 Weight 78 kg PHYSICAL EXAMINATION: GENERAL: The patient is alert and oriented x3, not in any acute distress. Well developed, well nourished. HEENT: Pupils are round and equally reacting to light. EOMI. No scleral icterus. Does have conjunctival pallor. Normocephalic, atraumatic. No pharyngeal erythema. No thyromegaly. CARDIOVASCULAR: S1 and S2 present. No murmurs, rubs, or gallops. PULMONARY: Chest is clear to auscultation, no wheezing or crackles. ABDOMEN: Soft, nontender, nondistended, normoactive bowel sounds. No palpable organomegaly. MUSCULOSKELETAL: No joint swelling or deformity. EXTREMITIES: No cyanosis, clubbing, or pedal edema. NEUROLOGICAL: Gross neurological examination did not reveal any focal deficits. SKIN: No rashes. Results CBC & Chem 7: 04/26/19 13:35 04/26/19 01:32 Labs: Abnormal Lab Results - Last 24 Hours (Table) 04/26/19 04/26/19 04/26/19 Range/Units 01:32 01:32 01:32 WBC (3.8-10.6) k/uL RBC 2.59 L (4.30-5.90) m/uL Hgb 6.9 L* (13.0-17.5) gm/dL Hct 23.0 L (39.0-53.0) % MCHC 30.2 L (31.0-37.0) g/dL RDW 20.1 H (11.5-15.5) % AST 14 L (17-59) U/L Total Protein 5.5 L (6.3-8.2) g/dL Albumin 2.8 L (3.5-5.0) g/dL Crossmatch See Detail 04/26/19 Range/Units 13:35 WBC 10.7 H (3.8-10.6) k/uL RBC 3.20 L (4.30-5.90) m/uL Hgb 9.2 L D (13.0-17.5) gm/dL Hct 29.5 L (39.0-53.0) % MCHC (31.0-37.0) g/dL RDW 18.7 H (11.5-15.5) % AST (17-59) U/L Total Protein (6.3-8.2) g/dL Albumin (3.5-5.0) g/dL Crossmatch Thrombosis Risk Factor Assmnt - Choose All That Apply Any of the Below Risk Factors Present?: Yes Each Factor Represents 1 point: Abnormal pulmonary function (COPD), Acute MD, Medical pt on bed rest Other Risk Factors: Yes Each Risk Factor Represents 3 Points: Age 75 years or older Thrombosis Risk Factor Assessment Total Risk Factor Score: 6 Thrombosis Risk Factor Assessment Level: High Risk Assessment and Plan Plan: -Anemia: There is no evidence of acute blood loss at least acute over blood loss patient received 2 units of blood transfusion. I obtain serum iron level I do not have levels available at this time decided to be followed as an outpatient [place] may need IV iron on oral and sedimentation depending on the levels of 5 serum ferritin. There is no evidence of GI bleed aren't retroperitoneal hematoma. No hematuria. No hematemesis. Patient received PRBC transfusion with which his hemoglobin went up to 9.2. -Congestive heart failure chronic diastolic dysfunction patient had an exacerbation of this heart failure secondary to blood transfusion patient will be given Lasix as mentioned in the HPI itself. History of bladder cancer unsure whether patient had cystoscopy yet. -Sleep apnea -Hyperlipidemia -Gastroesophageal Reflux disease -hypothyroidism
[2019-04-26] MEDS ORDERED: SYMBICORT 160-4.5 MCG INHALER INHALATION SCH (20:00)
[2019-04-26] MEDS ORDERED: ATORVASTATIN 20 MG TAB PO SCH (21:00)
== END 2019-04-26 16:29 | disposition home health service (06) | DRG 811 ==
LOC: EC 01:05 → 3SCARD 02:11
PROVIDERS: ADMIT Internal Medicine; ATTEND Internal Medicine
PROC: 30233N1 Transfusion of Nonautologous Red Blood Cells into Peripheral Vein, Percutaneous Approach (ICD-10-PCS; principal; 2019-04-26)
DX: D64.9 Anemia, unspecified (principal); I50.33 Acute on chronic diastolic (congestive) heart failure; E03.9 Hypothyroidism, unspecified; E78.5 Hyperlipidemia, unspecified; F17.210 Nicotine dependence, cigarettes, uncomplicated; G47.30 Sleep apnea, unspecified; Z99.89 Dependence on other enabling machines and devices; I11.0 Hypertensive heart disease with heart failure; I25.2 Old myocardial infarction; I25.10 Atherosclerotic heart disease of native coronary artery without angina pectoris; T80.89XA Other complications following infusion, transfusion and therapeutic injection, initial encounter; J43.9 Emphysema, unspecified; K21.9 Gastro-esophageal reflux disease without esophagitis; K59.09 Other constipation; Z79.02 Long term (current) use of antithrombotics/antiplatelets; Z79.51 Long term (current) use of inhaled steroids; Z79.82 Long term (current) use of aspirin; Z79.890 Hormone replacement therapy; Z79.899 Other long term (current) drug therapy; Z80.0 Family history of malignant neoplasm of digestive organs; Z80.3 Family history of malignant neoplasm of breast; Z85.51 Personal history of malignant neoplasm of bladder; Z85.828 Personal history of other malignant neoplasm of skin; Z95.1 Presence of aortocoronary bypass graft; Z98.42 Cataract extraction status, left eye; Z98.41 Cataract extraction status, right eye; Z87.01 Personal history of pneumonia (recurrent); Z88.8 Allergy status to other drugs, medicaments and biological substances
CPT/HCPCS: 36415; 71045; 80053; 82728; 85025; 85027; 85610; 85730; 86850; 86900; 86901; 86920; 93005; 99285

== ENCOUNTER 2019-05-12 11:20 | Inpatient (IN) | payer MEDICARE ==
[2019-05-12] MEDS ORDERED: methylPREDNISolone SOD SUCCI 125 MG/2 ML VIAL IV STA (11:37)
[2019-05-12] MEDS ORDERED: IPRATROPIUM-ALBUTEROL 3 ML NEB INHALATION STA (11:37)
[2019-05-12] MEDS ORDERED: ASPIRIN 81 MG PO STA (11:38)
--- NOTE | 2019-05-12 11:41 | ED ---
General Adult HPI - General Stated complaint: SOB Time Seen by Provider: 05/12/19 11:23 Source: patient, family, EMS, RN notes reviewed Mode of arrival: EMS Limitations: no limitations - History of Present Illness Initial comments: Patient is a pleasant 79-year-old male presenting to the emergency Department with complaints of difficulty in breathing. Onset of symptoms was yesterday. Symptoms were somewhat worse today. Prior to arrival patient did develop some pressure in the left chest. Discomfort was somewhat severe however is now near resolved. Dyspnea remains. Patient does have mild cough with occasional white sputum. No fevers. No nausea or diaphoresis. Patient does have previous similar dyspnea associated with COPD. Patient does not normally get chest di scomfort. - Related Data Home Medications Medication Instructions Recorded Confirmed Atorvastatin [Lipitor] 20 mg PO HS 05/09/17 05/12/19 Isosorbide Mononitrate ER [Imdur] 30 mg PO DAILY 05/09/17 05/12/19 Levothyroxine Sodium [Synthroid] 112 mcg PO DAILY 05/09/17 05/12/19 Sertraline [Zoloft] 50 mg PO DAILY 05/09/17 05/12/19 Tolterodine ER [Detrol LA] 2 mg PO DAILY 02/20/19 05/12/19 Ipratropium-Albuterol Nebulize 3 ml INHALATION RT-TID 03/29/19 05/12/19 [Duoneb 0.5 mg-3 mg/3 ml Soln] Montelukast [Singulair] 10 mg PO DAILY 03/29/19 05/12/19 Budesonide-Formot 160-4.5 Mcg 2 puff INHALATION RT-BID 04/08/19 05/12/19 [Symbicort 160-4.5 Mcg Inhaler] Cranberry Fruit Concentrate [Azo 250 mg PO DAILY 04/08/19 05/12/19 Cranberry] Previous Rx's Medication Instructions Recorded Acetaminophen Tab [Tylenol] 650 mg PO Q4HR PRN tab 04/17/19 Aspirin 81 mg PO DAILY #30 chew 04/17/19 Fludrocortisone [Florinef] 0.2 mg PO DAILY #30 tab 04/17/19 Midodrine [ProAmatine] 10 mg PO AC-TID #90 tab 04/17/19 Pantoprazole [Protonix] 40 mg PO DAILY #30 tablet. 04/17/19 Phenazopyridine [Pyridium] 200 mg PO TID #9 tab 04/17/19 Furosemide [Lasix] 20 mg PO DAILY #30 tab 04/26/19 Allergies Allergy/AdvReac Type Severity Reaction Status Date / Time iodine Allergy Rash/Hives Verified 05/12/19 11:34 Review of Systems ROS Statement: Those systems with pertinent positive or pertinent negative responses have been documented in the HPI. ROS Other: All systems not noted in ROS Statement are negative. Constitutional: Denies: fever Eyes: Denies: eye pain ENT: Denies: ear pain Respiratory: Reports: cough, dyspnea Cardiovascular: Reports: as per HPI, chest pain Endocrine: Denies: fatigue Gastrointestinal: Denies: abdominal pain Genitourinary: Denies: dysuria Musculoskeletal: Denies: back pain Skin: Denies: rash Neurological: Denies: weakness Past Medical History Past Medical History: Coronary Artery Disease (CAD), Cancer, Chest Pain / Angina, COPD, GERD/Reflux, Hyperlipidemia, Myocardial Infarction (CO), Osteoarthritis (OA), Pneumonia, Prostate Disorder, Sleep Apnea/CPAP/BIPAP, Th yroid Disorder Additional Past Medical History / Comment(s): BACK PAIN,herniated disc, pinched nerves,emphysema, hemorrhoids,skin cancer, walt cataracts-had sx, thin skin prone to bruises/skin tears. Last Myocardial Infarction Date:: unk History of Any Multi-Drug Resistant Organisms: None Reported Past Surgical History: Coronary Bypass/CABG Additional Past Surgical History / Comment(s): cataracts, 3 vessel cabg, past peg tube since removed." lizbet in penis", hemorrhoids, ?egd. pmh : lap heller myotomy Past Anesthesia/Blood Transfusion Reactions: No Reported Reaction Past Psychological History: No Psychological Hx Reported Additional Psychological History / Comment(s): pt lives with his 2nd in [facility] built onto his sons home. has 3 steps to enter it. pt uses [employer] when up. no outside services. no past [employer] service. retires from the [employer] at [employer]. Smoking Status: Current every day smoker Past Alcohol Use History: Rare Additional Past Alcohol Use History / Comment(s): started smoking at age 12- has quit here and there. stated if busy outside or on project will smoke 1 ppd, if just sitting at home smokes 2 ppd. in past drank heavy-quit 36 years ago. Past Drug Use History: None Reported - Past Family History Mother Family Medical History: Cancer Additional Family Medical History / Comment(s): breast cancer Sister(s) Family Medical History: Cancer Additional Family Medical History / Comment(s): colon cancer Father History Unknown: Yes Additional Family Medical History / Comment(s): pt's father when pt was 3 years old. General Exam Limitations: no limitations General appearance: alert, in no apparent distress Head exam: Present: atraumatic Eye exam: Present: normal appearance, PERRL ENT exam: Present: normal oropharynx Neck exam: Present: normal inspection Respiratory exam: Present: decreased breath sounds. Absent: chest wall tenderness Cardiovascular Exam: Present: regular rate, normal rhythm Expanded Peripheral pulses: 2+: Radial (R), Radial (L), Dorsalis Pedis (R), Dorsalis Pedis (L) GI/Abdominal exam: Present: soft. Absent: distended, tenderness Extremities exam: Present: normal inspection. Absent: pedal edema, calf tenderness Neurological exam: Present: alert Psychiatric exam: Present: normal affect, normal mood Skin exam: Present: normal color Course Vital Signs 05/12/19 05/12/19 05/12/19 11:34 11:43 11:45 Temperature 98.1 F Pulse Rate 91 82 Pulse Rate [ 84 Donor Services Manager ] Respiratory 24 Rate Blood Pressure 128/69 O2 Sat by Pulse 74 L 87 L Oximetry 05/12/19 05/12/19 05/12/19 11:55 12:04 12:43 Temperature Pulse Rate 85 89 90 Pulse Rate [ Donor Services Manager ] Respiratory 24 Rate Blood Pressure 139/78 O2 Sat by Pulse 83 L Oximetry EKG Findings - EKG Comments: EKG Findings:: Sinus rhythm at 88. Premature age will complexes. MO 146. QRS 78. QT 418. QTC 505. Normal axis. Low QRS voltage. T-wave inversion leads V2 and V3. Other nonspecific T waves. Medical Decision Making - Medical Decision Making Patient reevaluated and resting comfortably in bed. Patient and family updated on results and plan. Case discussed in detail with Dr. Onofre, who will admit covering for Dr. Wallace. - Lab Data Result diagrams: 05/12/19 11:45 05/12/19 11:45 Lab Results 05/12/19 05/12/19 05/12/19 Range/Units 11:45 11:45 11:45 WBC 6.8 (3.8-10.6) k/uL RBC 2.85 L (4.30-5.90) m/uL Hgb 8.3 L (13.0-17.5) gm/dL Hct 26.3 L (39.0-53.0) % MCV 92.2 (80.0-100.0) fL MCH 29.2 (25.0-35.0) pg MCHC 31.7 (31.0-37.0) g/dL RDW 16.8 H (11.5-15.5) % Plt Count 146 L (150-450) k/uL Neutrophils % 74 % Lymphocytes % 18 % Monocytes % 4 % Eosinophils % 2 % Basophils % 1 % Neutrophils # 5.0 (1.3-7.7) k/uL Lymphocytes # 1.2 (1.0-4.8) k/uL Monocytes # 0.3 (0-1.0) k/uL Eosinophils # 0.2 (0-0.7) k/uL Basophils # 0.1 (0-0.2) k/uL Hypochromasia Slight Anisocytosis Slight PT (9.0-12.0) sec INR (<1.2) APTT (22.0-30.0) sec Sodium 142 (137-145) mmol/L Potassium 3.3 L (3.5-5.1) mmol/L Chloride 107 (98-107) mmol/L Carbon Dioxide 28 (22-30) mmol/L Anion Gap 7 mmol/L BUN 19 (9-20) mg/dL Creatinine 1.89 H (0.66-1.25) mg/dL Est GFR (CKD-EPI)AfAm 38 (>60 ml/min/1.73 sqM) Est GFR (CKD-EPI)NonAf 33 (>60 ml/min/1.73 sqM) Glucose 151 H (74-99) mg/dL Calcium 8.4 (8.4-10.2) mg/dL Total Bilirubin 0.7 (0.2-1.3) mg/dL AST 22 (17-59) U/L ALT 15 L (21-72) U/L Alkaline Phosphatase 102 (38-126) U/L Troponin I (0.000-0.034) ng/mL NT-Pro-B Natriuret Pep 03197 pg/mL Total Protein 5.8 L (6.3-8.2) g/dL Albumin 2.9 L (3.5-5.0) g/dL 05/12/19 05/12/19 Range/Units 11:45 11:45 WBC (3.8-10.6) k/uL RBC (4.30-5.90) m/uL Hgb (13.0-17.5) gm/dL Hct (39.0-53.0) % MCV (80.0-100.0) fL MCH (25.0-35.0) pg MCHC (31.0-37.0) g/dL RDW (11.5-15.5) % Plt Count (150-450) k/uL Neutrophils % % Lymphocytes % % Monocytes % % Eosinophils % % Basophils % % Neutrophils # (1.3-7.7) k/uL Lymphocytes # (1.0-4.8) k/uL Monocytes # (0-1.0) k/uL Eosinophils # (0-0.7) k/uL Basophils # (0-0.2) k/uL Hypochromasia Anisocytosis PT 10.8 (9.0-12.0) sec INR 1.0 (<1.2) APTT 24.8 (22.0-30.0) sec Sodium (137-145) mmol/L Potassium (3.5-5.1) mmol/L Chloride (98-107) mmol/L Carbon Dioxide (22-30) mmol/L Anion Gap mmol/L BUN (9-20) mg/dL Creatinine (0.66-1.25) mg/dL Est GFR (CKD-EPI)AfAm (>60 ml/min/1.73 sqM) Est GFR (CKD-EPI)NonAf (>60 ml/min/1.73 sqM) Glucose (74-99) mg/dL Calcium (8.4-10.2) mg/dL Total Bilirubin (0.2-1.3) mg/dL AST (17-59) U/L ALT (21-72) U/L Alkaline Phosphatase (38-126) U/L Troponin I 0.036 H* (0.000-0.034) ng/mL NT-Pro-B Natriuret Pep pg/mL Total Protein (6.3-8.2) g/dL Albumin (3.5-5.0) g/dL - Radiology Data Radiology results: image reviewed (Chest x-ray showed increases with fluid overload) Disposition Clinical Impression: Congestive heart failure Disposition: ADMITTED IP TO THIS HOSP Is patient prescribed a controlled substance at d/c from ED?: No Referrals: Jess Wallace DO [Primary Care Provider] - 1-2 days Decision Time: 13:27
[2019-05-12 12:19] LABS: Anisocytosis Slight; Basophils # (A) 0.1 k/uL (0-0.2); Basophils % (A) 1 %; Eosinophils # (A) 0.2 k/uL (0-0.7); Eosinophils % (A) 2 %; HCT 26.3 % (39.0-53.0); HGB 8.3 gm/dL (13.0-17.5); Hypochromasia Slight; Lymphocytes # (A) 1.2 k/uL (1.0-4.8); Lymphocytes % (A) 18 %; MCH 29.2 pg (25.0-35.0); MCHC 31.7 g/dL (31.0-37.0); MCV 92.2 fL (80.0-100.0); Mean Platelet Volume 7.6; Monocytes # (A) 0.3 k/uL (0-1.0); Monocytes % (A) 4 %; Neutrophils % (A) 74 %; Platelet Count 146 k/uL (150-450); RBC 2.85 m/uL (4.30-5.90); RDW 16.8 % (11.5-15.5); WBC 6.8 k/uL (3.8-10.6)
[2019-05-12 12:22] LABS: Partial Thromboplastin Time 24.8 sec (22.0-30.0); Prothrombin Time 10.8 sec (9.0-12.0)
[2019-05-12 12:24] LABS: Albumin 2.9 g/dL (3.5-5.0); Calcium 8.4 mg/dL (8.4-10.2); Potassium 3.3 mmol/L (3.5-5.1); Total Bilirubin 0.7 mg/dL (0.2-1.3); Total Protein 5.8 g/dL (6.3-8.2)
--- NOTE | 2019-05-12 13:18 | XR ---
EXAMINATION TYPE: XR chest 2V DATE OF EXAM: 05/12/2019 COMPARISON: Chest radiograph 04/26/2019 HISTORY: Difficulty in breathing TECHNIQUE: Frontal and lateral views of the chest are obtained. FINDINGS: Stable size of cardiac silhouette, mildly enlarged. Pulmonary vascular congestion with stable promine nce of the interstitium. Patchy right basilar opacity has increased in the interim. Small bilateral p leural effusions. Sternotomy wires redemonstrated. IMPRESSION: Findings consistent with fluid overload, worsened from the comparison study performed 04/26/2019.
[2019-05-12] MEDS ORDERED: ASPIRIN 325 MG TAB PO STA (13:28)
[2019-05-12] MEDS: FUROSEMIDE 10 MG/ML 4 ML VIAL IV SCH ×2 (14:01→22:26)
[2019-05-12] MEDS: NITROGLYCERIN OINT 1 INCH/GM PACKET TOPICAL SCH ×3 (14:03→22:27)
[2019-05-12] MEDS ORDERED: ACETAMINOPHEN TAB 325 MG TAB PO PRN (16:14)
[2019-05-12] MEDS ORDERED: Potassium Replacement Protocol 1 EACH MISC MISCELLANE PRN (16:14)
[2019-05-12 17:02] LABS: Appearance,Urine Clear (Clear); Bilirubin,Urine Negative (Negative); Blood,Urine Negative (Negative); Color,Urine Yellow; Glucose,Urine (UA) Negative (Negative); Ketones,Urine Negative (Negative); Leukocyte Esterase,Urine Negative (Negative); Nitrite,Urine Negative (Negative); PH, Urine 6.5 (5.0-8.0); Protein,Urine Negative (Negative); Specific Gravity,Urine 1.005 (1.001-1.035); Urobilinogen,Urine <2.0 mg/dL (<2.0)
[2019-05-12 17:04] LABS: Glucose,Whole Blood 197 mg/dL (75-99)
[2019-05-12] MEDS: methylPREDNISolone SOD SUCCI 125 MG/2 ML VIAL IV SCH ×2 (17:27→22:26)
[2019-05-12] MEDS: INSULIN ASPART (NovoLOG) 100 UNIT/ML VIAL SQ SCH ×2 (17:27→20:48)
[2019-05-12] MEDS: MIDODRINE 5 MG TAB PO SCH (17:27)
[2019-05-12] MEDS: IPRATROPIUM-ALBUTEROL 3 ML NEB INHALATION SCH (19:15)
[2019-05-12] MEDS: SYMBICORT 160-4.5 MCG INHALER INHALATION SCH (19:15)
[2019-05-12 20:36] LABS: Glucose,Whole Blood 229 mg/dL (75-99)
[2019-05-12] MEDS: ATORVASTATIN 20 MG TAB PO SCH (20:49)
[2019-05-12] MEDS: PHENAZOPYRIDINE 200 MG TAB PO SCH (22:27)
--- NOTE | 2019-05-12 23:59 | HP ---
HISTORY AND PHYSICAL CHIEF COMPLAINT: Shortness of breath. HISTORY OF PRESENT ILLNESS: This 79-year-old gentleman with a past history of CAD, CHF, COPD, GERD, hypertension, hyperlipidemia, history of myocardial infarction, history of pneumonia, history of CAD, CABG being followed by Dr. Singleton in the outpatient is complaining of shortness of breath. The patient came to [facility] and was found to have CHF acute exacerbation with significant pleural effusion on the right side and the patient admitted for evaluation and treatment. The most recent 2D echocardiogram done in March showed ejection fraction 30-35% and global hypokinesia. There is no history of fever or rigors. No headache, loss of consciousness or seizures. The patient also had a recent admission for anemia also. PAST MEDICAL HISTORY: History of CAD, CHF, COPD, GERD, hypertension, hyperlipidemia, history of pneumonia, history of sleep apnea. HOME MEDICATIONS: 1. Aspirin 81 mg p.o. 2. Tylenol 650 q.4 p.r.n. 3. Detrol LA 2 mg p.o. daily. 4. Zoloft 50 mg p.o. 5. Pyridium 200 mg p.o. t.i.d. 6. Protonix 40 mg p.o. daily. 7. Singulair 10 mg p.o. daily. 8. ProAmatine 10 mg p.o. a.c. t.i.d. 9. Synthroid 112 mcg p.o. daily. 10.Imdur 30 mg p.o. 11.DuoNeb q.i.d. and p.r.n. 12.Lasix 20 mg p.o. daily. 13.Florinef 0.2 daily. 14.Azo cranberry 250 mg p.o. daily. 15.Symbicort 1/4.5 two puffs b.i.d. 16.Lipitor 20 mg q.h.s. ALLERGIES: IODINE. FAMILY HISTORY: History of breast cancer in the family. SOCIAL HISTORY: Continues smoking. No alcohol intake. REVIEW OF SYSTEMS: ENT: Diminished vision, diminished hearing. CARDIOVASCULAR: As mentioned earlier. GI: No nausea. : No dysuria. NERVOUS SYSTEM: No numbness or weakness. ALLERGY: No allergies. MUSCULOSKELETAL: As mentioned earlier. HEMATOLOGY/ONCOLOGY: No history of anemia. ENDOCRINE: Hypothyroidism. CONSTITUTIONAL: As mentioned earlier. DERMATOLOGY: Negative. RHEUMATOLOGY: Negative. PSYCHIATRY: As mentioned earlier. PHYSICAL EXAMINATION: Alert oriented x2. Pulse 90, blood pressure 146/98, respiration 24, temperature 98.9, pulse ox 88 percent on 4 L. HEENT: Conjunctivae normal. Oral mucosa moist. NECK: No jugular venous distention. No lymph node enlargement. CARDIOVASCULAR: S1, S2. RESPIRATORY: Diminished breath sounds at the bases. Bilateral scattered rhonchi and crackles. Expiratory wheezing also present. ABDOMEN: Soft, obese, nontender. LEGS: No swelling. NERVOUS SYSTEM: Higher functions as mentioned. Moves all four limbs. No focal deficits. JOINTS: No active deforming arthropathy. LABS: At this time show WBC 6.8, hemoglobin is 8.3, sodium 140, potassium 3.8 creatinine is 1.89. Troponin noted. ASSESSMENT: 1. Congestive heart failure acute exacerbation with acute on chronic systolic dysfunction, ejection fraction 30-35% with acute hypoxic respiratory failure. 2. Increased creatinine with acute tubular necrosis with prerenal renal failure. 3. Troponin 0.036, indeterminate. 4. Hypokalemia. 5. Anemia, normocytic anemia of chronic disease. 6. Thrombocytopenia. 7. History of coronary artery disease, coronary artery bypass grafting. 8. History of chronic obstructive pulmonary disease. 9. History of congestive heart failure. 10.Gastroesophageal reflux disease. 11.Hyperlipidemia. 12.History of myocardial infarction. 13.History of degenerative joint disease. 14.History pneumonia. 15.History of prostate disorder. 16.Sleep apnea. 17.History of back pain, degenerative joint disease. 18.History of cataracts. 19.History of nicotine dependence. RECOMMENDATIONS AND DISCUSSION: This 79-year-old gentleman who presented with multiple medical issues, at this time I recommend to continue the current management, optimize diuretic therapy. We will obtain cardiology and pulmonology consultation. We will recommend bronchodilators also. Otherwise, I would also recommend some IV steroids also for the COPD which might be contributing to the exacerbation as well. Otherwise, monitor blood sugars closely. Prognosis guarded. Cardiology and pulmonology will be consulted. See orders for details. Further recommendations to follow. MMODL / IJN: [id number] /
[2019-05-13] MEDS: FUROSEMIDE 10 MG/ML 4 ML VIAL IV SCH ×3 (06:07→20:24)
[2019-05-13] MEDS: MIDODRINE 5 MG TAB PO SCH ×3 (06:07→18:11)
[2019-05-13] MEDS: PANTOPRAZOLE 40 MG TABLET PO SCH (06:07)
[2019-05-13] MEDS: methylPREDNISolone SOD SUCCI 125 MG/2 ML VIAL IV SCH ×3 (06:07→18:11)
[2019-05-13] MEDS: LEVOTHYROXINE 112 MCG TAB PO SCH (06:08)
[2019-05-13 06:14] LABS: Glucose,Whole Blood 169 mg/dL (75-99)
[2019-05-13] MEDS: INSULIN ASPART (NovoLOG) 100 UNIT/ML VIAL SQ SCH ×4 (06:16→20:24)
[2019-05-13 06:47] LABS: Anisocytosis Slight; Basophils % (A) 0 %; Eosinophils % (A) 1 %; HCT 27.7 % (39.0-53.0); HGB 8.8 gm/dL (13.0-17.5); Hypochromasia Slight; Lymphocytes # (A) 0.9 k/uL (1.0-4.8); Lymphocytes % (A) 13 %; MCH 29.4 pg (25.0-35.0); MCHC 31.7 g/dL (31.0-37.0); MCV 92.6 fL (80.0-100.0); Mean Platelet Volume 7.8; Monocytes # (A) 0.1 k/uL (0-1.0); Monocytes % (A) 2 %; Neutrophils # (A) 5.4 k/uL (1.3-7.7); Neutrophils % (A) 84 %; Platelet Count 175 k/uL (150-450); RBC 2.99 m/uL (4.30-5.90); RDW 16.7 % (11.5-15.5); WBC 6.5 k/uL (3.8-10.6)
[2019-05-13 06:55] LABS: Calcium 8.8 mg/dL (8.4-10.2); Potassium 4.2 mmol/L (3.5-5.1)
[2019-05-13] MEDS: IPRATROPIUM-ALBUTEROL 3 ML NEB INHALATION SCH ×3 (08:28→20:29)
[2019-05-13] MEDS: SERTRALINE 50 MG TAB PO SCH (08:28)
[2019-05-13] MEDS: OXYBUTYNIN XL 5 MG TAB.ER.24 PO SCH (08:28)
[2019-05-13] MEDS: SYMBICORT 160-4.5 MCG INHALER INHALATION SCH (08:28)
[2019-05-13] MEDS: NITROGLYCERIN OINT 1 INCH/GM PACKET TOPICAL SCH ×4 (08:28→22:55)
[2019-05-13] MEDS: FLUDROCORTISONE 0.1 MG TAB PO SCH (08:28)
[2019-05-13] MEDS: MONTELUKAST 10 MG TAB PO SCH (08:28)
[2019-05-13] MEDS: PHENAZOPYRIDINE 200 MG TAB PO SCH ×3 (08:28→22:55)
[2019-05-13] MEDS ORDERED: NON-FORMULARY DRUG (Cranberry Fruit Concentrate [Azo Cranberry] 250 MG) PO SCH (09:00)
[2019-05-13 11:10] VITALS: BMI 24.9
--- NOTE | 2019-05-13 11:38 | XR ---
EXAMINATION TYPE: XR chest 1V portable DATE OF EXAM: 05/13/2019 COMPARISON: 05/12/2019 HISTORY: Congestive heart failure and shortness of breath TECHNIQUE: Single frontal view of the chest is obtained. FINDINGS: There is an enlarged cardiac mediastinal silhouette and increasing confluence of the bibas ilar opacities with mild pulmonary vascular congestion and interstitial edema throughout. Post CABG c hanges of the chest. Diffuse osseous demineralization. IMPRESSION: Increasing confluence of the bibasilar opacities suspicious for pneumonia superimposed u stacie decompensated congestive heart failure with stable mild interstitial pulmonary edema.
[2019-05-13 12:13] LABS: Glucose,Whole Blood 160 mg/dL (75-99)
[2019-05-13] MEDS: ASPIRIN 325 MG TAB PO SCH (12:32)
[2019-05-13 18:02] LABS: Glucose,Whole Blood 202 mg/dL (75-99)
--- NOTE | 2019-05-13 19:31 | CONS ---
CONSULTATION CHIEF COMPLAINT: Shortness of breath. Ector is an 79-year-old gentleman with history of coronary artery disease, chronic systolic heart failure, COPD, GERD, hypertension, dyslipidemia, and prior bypass surgery, who presented to the hospital complaining of shortness of breath. His shortness of breath is mild to moderate intensity, has been getting progressively worse. He was found to be in congestive heart failure with right-sided pleural effusion and is admitted to hospital for the same. He has known cardiomyopathy with moderate to severe LV dysfunction with an ejection fraction of 35%. His clinical presentation is consistent with a diagnosis of acute exacerbation of chronic systolic heart failure. PAST MEDICAL HISTORY: Significant for CAD, status post CABG, congestive heart failure, COPD, GERD, hypertension, dyslipidemia, pneumonia, sleep apnea. MEDICATIONS: Include Lipitor, Symbicort, Florinef, Lasix, DuoNeb, Imdur, Synthroid, Singulair, Protonix, Zoloft, Detrol, Tylenol, and aspirin. FAMILY HISTORY: Significant for breast cancer. ALLERGIC: IODINE. SOCIAL HISTORY: Significant for smoking. There is no history of EtOH abuse or drug abuse. REVIEW OF SYSTEMS: HEENT: Significant for diminished hearing and vision. CARDIOVASCULAR: As described above. GENITOURINARY: Negative. ALLERGY/IMMUNOLOGY: Negative. BLOWER MECHANIC: Negative. MUSCULOSKELETAL: Significant for arthritis. PSYCHOSOCIAL: Negative. HEMATOLOGICAL: Negative. ENDOCRINE: Negative. CONSTITUTIONAL: As described above. DERMATOLOGICAL: Negative. HEMATOLOGICAL: Negative. PSYCH: Negative. EXAM: Patient is comfortable at rest, afebrile, vital signs are stable. O2 saturation is 92% on 4 L. There is no jugular venous distention. Chest exam reveals occasional rhonchi bilaterally. Heart exam reveals first and second heart sounds. Systolic murmur at the left lower sternal border. Abdomen is soft. Exam of extremities reveals bilateral pitting edema. Foot pulses are palpable. Tropes are at 0.03, 0.03 and 0.02. Hemoglobin is 8.8, BUN is 29, creatinine is 2.4. ASSESSMENT: 1. Acute exacerbation of chronic systolic heart failure. 2. Coronary artery disease, status post coronary artery bypass grafting. 3. History of hypotension. 4. Insulin-requiring diabetes. 5. Chronic obstructive pulmonary disease. PLAN: Will treat the patient with IV Lasix. The patient is not on beta blockers or SUKHJINDER inhibitors given the history of hypertension and the fact that the patient is on midodrine. MMODL / IJN: [id number] /
[2019-05-13 20:18] LABS: Glucose,Whole Blood 244 mg/dL (75-99)
[2019-05-13] MEDS: ATORVASTATIN 20 MG TAB PO SCH (20:24)
[2019-05-13] MEDS: HEPARIN SODIUM,PORCINE 5,000 UNIT/ML 1 ML VIAL SQ SCH (20:24)
[2019-05-13] MEDS: BUDESONIDE 0.5 MG/2 ML NEBU INHALATION SCH (20:31)
--- NOTE | 2019-05-13 22:38 | CONS ---
CONSULTATION Carolee Pedersen is an 79-year-old male who presented to the ED at [facility] with increasing shortness of breath. He had no fever or chills. Had an occasional cough. He also had some chest discomfort and he had no fever or chills. He has a known history of congestive cardiomyopathy with an ejection fraction of between 30 and 35%. Possible history of COPD for which he is on inhalers and home oxygen. He continues to smoke even with his oxygen on. PAST MEDICAL HISTORY: Positive for congestive heart failure, COPD, gastroesophageal reflux disease, hypertension, hyperlipidemia, sleep apnea, coronary artery disease. SOCIAL HISTORY: The patient smokes about 1-2 packs of cigarettes per day. 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 He does not drink alcohol excessively. FAMILY HISTORY: Positive for breast cancer in his family, COPD in his sister. ALLERGIES: The patient is allergic to IODINE. MEDICATIONS: Prior to admission were aspirin, Tylenol, Detrol LA, Zoloft, Spiriva, Protonix, Singulair, ProAmatine, Synthroid, Imdur, DuoNeb, Lasix, Florinef, Azo cranberry, Symbicort, and Lipitor. REVIEW OF SYSTEMS: Noncontributory other than for what is described in history of present illness and past medical history. PHYSICAL EXAMINATION: The patient is 5 feet 9 inches, weighs 76.5 kg. His respiratory rate is 17, pulse rate of 91, temperature 97.5, blood pressure 125/65, O2 saturation on 4 L by nasal cannula is 92%. HEENT reveals pupils that are equal, mild prominence of the jugular veins. Chest reveals decreased breath sounds at bases with dullness to percussion, more on the right than the left. Cardiovascular system with an S1, S2. Systolic murmur is heard. Abdomen is soft. There is trace pedal edema of the left lower extremity. LABS: White count of 6.5, hemoglobin of 8.8. Sodium 142, potassium 4.2, chloride 105, bicarb 28, BUN 29, creatinine of 2.4. Chest x-ray shows evidence of a right-sided pleural effusion with cardiomegaly and some changes consistent with congestive heart failure. IMPRESSION: 1. Congestive heart failure with acute exacerbation. 2. Acute respiratory failure. 3. Chronic obstructive pulmonary disease versus asthma with exacerbation. 4. Anemia that is multifactorial. 5. Nicotine dependence. At this point in time, would keep him on GI and DVT prophylaxis. Optimize his fluid status. Keep him in negative fluid balance. Keep him on IV and aerosolized steroids, leukotriene receptor antagonists. He may need further workup for his anemia and depending on how he does we should make further changes to his care. He was counseled regarding his condition. MMODL / IJN: [id number] /
[2019-05-13] MEDS: methylPREDNISolone SOD SUCCI 40 MG/ML 1 ML VIAL IV SCH (23:01)
--- NOTE | 2019-05-14 02:44 | CONS ---
CONSULTATION REASON FOR CONSULT: Renal failure. HISTORY OF PRESENT ILLNESS: The patient is an 79-year-old male who has a history of coronary artery disease, COPD, CHF, GERD, hypertension, and coronary artery disease, who was admitted to the hospital with a complaint of shortness of breath. The patient was found to be in CHF and is currently being diuresed. He has cardiomyopathy with ejection fraction of 30-35 percent. The patient denied any cough, fever, chills, nausea, vomiting. He did have some decreased oral intake. Patient did admit to difficulty in urination. PAST MEDICAL HISTORY: Coronary artery disease, CHF, COPD, GERD, hypertension, hyperlipidemia, pneumonia, history of obstructive sleep apnea. MEDICATIONS: Medications at home prior to admission include aspirin, Tylenol, Detrol, Zoloft, Pyridium, Protonix, Singulair, midodrine, Synthroid, Imdur, DuoNeb, Lasix, Florinef, Symbicort, Lipitor. ALLERGIES: Include IODINE. SOCIAL HISTORY: Patient continues to smoke. No history of other drug abuse or alcohol abuse. FAMILY HISTORY: Noncontributory. REVIEW OF SYSTEMS: As per HPI. Other systems negative. EXAMINATION: Patient is currently comfortable, awake, alert, oriented x3, not in any acute distress. Blood pressure is 130/88, heart rate 98 per minute. He is afebrile. Examination of the heart S1, S2. Examination of the lungs, bilateral breath sounds are heard. Abdomen is soft, nontender. Examination lower extremities shows no significant edema. MEDICAL REPRESENTATIVE exam grossly intact. LAB: Shows sodium of 142, potassium 4.2, BUN 29, serum creatinine 2.4 mg/dL, hemoglobin 8.8 g/dL. ASSESSMENT: 1. Acute kidney injury with serum creatinine at 2.4 from 1.89 yesterday. Patient currently has a condom catheter. However, he does have symptoms suggestive of obstructive uropathy. I will check a bladder scan and will place a [place] catheter if he is retaining. Currently no nephrotoxic medications are on board. The patient's blood pressure is not significantly low. I will continue with the current dose of diuretics. There may definitely be a component of cardiorenal acute kidney injury if there is no obstructive uropathy. Urinalysis is completely benign. Patient was not on any nephrotoxic medications prior to admission. 2. Ischemic cardiomyopathy, ejection fraction 30-35 percent. 3. Congestive heart failure, acute on top of chronic, mainly systolic. 4. Anemia, rule out iron deficiency. 5. Chronic obstructive pulmonary disease, currently stable. 6. History of benign prostatic hypertrophy. 7. History of coronary artery disease status post coronary artery bypass graft. PLAN: Check a bladder scan. Rule out urine retention. Continue with Lasix but decrease dose to 40 mg q.12 hours. Check ultrasound of the kidneys. Avoid any other nephrotoxic medications. Thank you for this consultation. We will continue to follow the patient with you during his hospitalization. MMODL / IJN: [id number] /
--- NOTE | 2019-05-14 05:14 | PN ---
PROGRESS NOTE DATE OF SERVICE: 05/13/2019 This 79-year-old gentleman admitted with acute on chronic systolic dysfunction is being closely monitored with Cardiology. Patient is on diuretics. Creatinine has worsened today. The patient is still complaining of shortness of breath and multiple other symptoms also. The patient is being closely monitored. Patient also had a pleural effusion also. Evaluation by Pulmonary is also in progress at this time. There is no history of any fever, rigors or chills this at this time. PAST MEDICAL HISTORY: Reviewed. REVIEW OF SYSTEMS: CARDIOVASCULAR SYSTEM: As mentioned earlier. RESPIRATORY SYSTEM: As mentioned earlier. GI: No nausea. : No dysuria. NERVOUS SYSTEM: No numbness or weakness. MEDICATIONS: Current medications are reviewed and include: 1. Tylenol 650 q.4 p.r.n. 2. DuoNeb q.i.d. and p.r.n. 3. Aspirin 325 mg daily. 4. Lipitor 20 mg q.h.s. 5. Pulmicort 0.5 b.i.d. 6. Lasix 40 mg IV b.i.d. 7. Heparin 5000 subcu b.i.d. 8. Synthroid. 9. Solu-Medrol 60 IV q.6. 10.Singular. 11.Nitro-Bid. 12.Ditropan. 13.Pyridium. 14.Zoloft. 15.Saline flush. PHYSICAL EXAMINATION: The patient is alert, oriented x3. Pulse is 93, blood pressure is 111/57, respiration 18, temperature 98.2, pulse ox 89% on 4 L. HEENT: Conjunctivae normal. Oral mucosa NECK: Jugular venous distention CARDIOVASCULAR: S1, S2 muffled. Ejection systolic murmur. No S3, no S4. RESPIRATORY: Breath sounds diminished at the bases. Bilateral scattered rhonchi and crackles. ABDOMEN: Soft, nontender. LEGS: No edema. NERVOUS SYSTEM: Diffusely weak. LABS: Labs are WBC 6.5, hemoglobin is 8.8, creatinine is 2.40. ASSESSMENT: 1. Congestive heart failure acute exacerbation with acute on chronic systolic dysfunction, ejection fraction 30% to 35% with acute hypoxic respiratory failure. 2. Increased creatinine with acute tubular necrosis with prerenal acute renal failure. 3. Possible chronic kidney disease stage 3 baseline. 4. Troponin 0.036 indeterminate. 5. Hypokalemia. 6. Anemia, normocytic anemia of chronic disease. 7. Thrombocytopenia. 8. History of coronary artery disease, coronary artery bypass grafting. 9. History of chronic obstructive pulmonary disease. 10.History of congestive heart failure. 11.Gastroesophageal reflux disease. 12.Hyperlipidemia. 13.History of myocardial infarction. 14.History of degenerative joint disease. 15.History of pneumonia. 16.History of prostate disorder. 17.History of sleep apnea. 18.History of back pain, degenerative joint disease. 19.History of cataracts. 20.History of nicotine dependence. RECOMMENDATIONS AND DISCUSSION: Recommend to continue current medications. Continue with monitoring and symptomatic treatment. At this time I would recommend continue with current medication, taper the steroids. I would also recommend nephrology evaluation and continue the rest of medications. Pulmonary consultation. Guarded prognosis because of multiple complex medical issues. Further recommendations to follow. See orders for further details. MMODL / IJN: [id number] / MTDD
[2019-05-14 06:10] LABS: Glucose,Whole Blood 162 mg/dL (75-99)
[2019-05-14 06:14] LABS: Anisocytosis Slight; Basophils % (A) 0 %; Eosinophils % (A) 0 %; HGB 7.9 gm/dL (13.0-17.5); Hypochromasia Slight; Lymphocytes # (A) 0.7 k/uL (1.0-4.8); Lymphocytes % (A) 7 %; MCH 29.1 pg (25.0-35.0); MCHC 31.7 g/dL (31.0-37.0); MCV 92.1 fL (80.0-100.0); Mean Platelet Volume 7.8; Monocytes # (A) 0.2 k/uL (0-1.0); Monocytes % (A) 2 %; Neutrophils # (A) 10.4 k/uL (1.3-7.7); Neutrophils % (A) 91 %; Platelet Count 166 k/uL (150-450); RBC 2.72 m/uL (4.30-5.90); RDW 17.3 % (11.5-15.5); WBC 11.4 k/uL (3.8-10.6)
[2019-05-14] MEDS: PANTOPRAZOLE 40 MG TABLET PO SCH (06:23)
[2019-05-14] MEDS: LEVOTHYROXINE 112 MCG TAB PO SCH (06:23)
[2019-05-14] MEDS: MIDODRINE 5 MG TAB PO SCH ×3 (06:24→17:15)
[2019-05-14 06:25] LABS: Calcium 8.6 mg/dL (8.4-10.2); Potassium 3.3 mmol/L (3.5-5.1)
[2019-05-14] MEDS: INSULIN ASPART (NovoLOG) 100 UNIT/ML VIAL SQ SCH ×4 (06:27→22:31)
[2019-05-14] MEDS: POTASSIUM CHLORIDE ER 20 MEQ TAB.ER PO SCH ×2 (06:45→10:29)
[2019-05-14] MEDS: IPRATROPIUM-ALBUTEROL 3 ML NEB INHALATION SCH ×3 (07:17→19:27)
[2019-05-14] MEDS: BUDESONIDE 0.5 MG/2 ML NEBU INHALATION SCH ×2 (07:17→19:27)
--- NOTE | 2019-05-14 10:23 | P.PN ---
Subjective Patient is seen in follow-up for acute kidney injury. Creatinine peaked at 2.4 this admission and is down to 1.83 today. Currently maintained on Lasix 40 mg IV twice daily. Urine output is good. No vomiting or diarrhea. Denies chest pain. Dyspnea improved. Vital signs are stable. General: The patient appeared well nourished and normally developed. HEENT: Head exam is unremarkable. Neck is without jugular venous distension. LUNGS: Breath sounds decreased. HEART: Rate and Rhythm are regular. First and second heart sounds normal. No murmurs, rubs or gallops. ABDOMEN: Abdominal exam reveals normal bowel sounds. Non-tender and non-diste nded. No evidence of peritonitis. EXTREMITITES: No clubbing, cyanosis, or edema. Objective - Vital Signs Vital signs: Vital Signs Temp 97.4 F L 05/14/19 07:45 Pulse 93 05/14/19 08:00 Resp 26 H 05/14/19 08:00 BP 122/58 05/14/19 07:45 Pulse Ox 89 L 05/14/19 07:45 Intake & Output 05/13/19 05/14/19 05/14/19 18:59 06:59 18:59 Intake Total 720 240 360 Output Total 2000 1200 300 Balance -1280 -960 60 Weight 76.5 kg 58.5 kg Intake: Oral 720 240 360 Output: Urine 2000 1200 300 Other: Voiding Method Urinal Diaper Incontinent # Voids 1 - Labs CBC & Chem 7: 05/14/19 06:01 05/14/19 06:01 Labs: Abnormal Lab Results - Last 24 Hours (Table) 05/13/19 05/13/19 05/13/19 Range/Units 12:08 17:41 20:15 WBC (3.8-10.6) k/uL RBC (4.30-5.90) m/uL Hgb (13.0-17.5) gm/dL Hct (39.0-53.0) % RDW (11.5-15.5) % Neutrophils # (1.3-7.7) k/uL Lymphocytes # (1.0-4.8) k/uL Potassium (3.5-5.1) mmol/L BUN (9-20) mg/dL Creatinine (0.66-1.25) mg/dL Glucose (74-99) mg/dL POC Glucose (mg/dL) 160 H 202 H 244 H (75-99) mg/dL 05/14/19 05/14/19 05/14/19 Range/Units 06:01 06:01 06:08 WBC 11.4 H (3.8-10.6) k/uL RBC 2.72 L (4.30-5.90) m/uL Hgb 7.9 L (13.0-17.5) gm/dL Hct 25.0 L (39.0-53.0) % RDW 17.3 H (11.5-15.5) % Neutrophils # 10.4 H (1.3-7.7) k/uL Lymphocytes # 0.7 L (1.0-4.8) k/uL Potassium 3.3 L (3.5-5.1) mmol/L BUN 35 H (9-20) mg/dL Creatinine 1.83 H (0.66-1.25) mg/dL Glucose 137 H (74-99) mg/dL POC Glucose (mg/dL) 162 H (75-99) mg/dL Assessment and Plan Plan: Assessment: 1. Acute kidney injury mostly prerenal secondary to cardiorenal syndrome. Creatinine peaked at 2.4 this admission and is 1.83 today. UA is benign. No evidence of urinary retention. 2. Dyspnea secondary to volume overload. 3. Acute on chronic systolic CHF with ejection fraction of 30-35%. 4. Hypokalemia secondary to diuresis. Rule out magnesium deficiency. 5. History of coronary artery disease status post CABG. Plan: Maintain Lasix 40 mg IV twice daily. Replace potassium. 40 mEq today. Check iron studies. Avoid nephrotoxins. Repeat electrolytes, including magnesium level. in the morning.
[2019-05-14] MEDS: OXYBUTYNIN XL 5 MG TAB.ER.24 PO SCH (10:24)
[2019-05-14] MEDS: ASPIRIN 325 MG TAB PO SCH (10:25)
[2019-05-14] MEDS: PHENAZOPYRIDINE 200 MG TAB PO SCH ×3 (10:29→22:31)
[2019-05-14] MEDS: FUROSEMIDE 10 MG/ML 4 ML VIAL IV SCH ×2 (10:30→20:29)
[2019-05-14] MEDS: MONTELUKAST 10 MG TAB PO SCH (10:30)
[2019-05-14] MEDS: methylPREDNISolone SOD SUCCI 40 MG/ML 1 ML VIAL IV SCH ×3 (10:30→23:34)
[2019-05-14] MEDS: FLUDROCORTISONE 0.1 MG TAB PO SCH (10:30)
[2019-05-14] MEDS: NITROGLYCERIN OINT 1 INCH/GM PACKET TOPICAL SCH ×4 (10:31→23:34)
[2019-05-14] MEDS: HEPARIN SODIUM,PORCINE 5,000 UNIT/ML 1 ML VIAL SQ SCH ×2 (10:31→20:29)
[2019-05-14] MEDS: SERTRALINE 50 MG TAB PO SCH (10:33)
[2019-05-14 11:04] LABS: Iron Saturation 17.9 (15.00-50.00)
[2019-05-14 11:50] LABS: Glucose,Whole Blood 176 mg/dL (75-99)
--- NOTE | 2019-05-14 15:39 | PN ---
PROGRESS NOTE DATE OF SERVICE: 05/14/2019 He has been hemodynamically stable. He is less short of breath and is sitting in bed. His creatinine has started to improve. PHYSICAL EXAMINATION: Blood pressure is 120/65, respiratory rate of 15, pulse rate 97, temperature 97.5, O2 saturation on 5 L by nasal cannula is 92%. HEENT: Reveals pupils equal. CHEST: Reveals decreased breath sounds in the right base. CARDIOVASCULAR SYSTEM: Reveals an S1, S2. ABDOMEN: Soft. There is trace pedal edema. I's and O's have been negative, approximately t3 and half the study approximately 4 L since. ADMISSION LABS: Revealed a white count 11.4, hemoglobin of 7.9, sodium 141, potassium 3.3, chloride 102, bicarb 30, BUN 38, creatinine 1.83. IMPRESSION: 1. Shortness of breath that is multifactorial in part due to congestive heart failure. 2. Possible chronic obstructive pulmonary disease given his history of smoking. At this point in time. continue to keep a negative fluid balance. Continue IV steroids, aerosolized steroids and bronchodilators. His prognosis at this time is fair. He was counseled regarding his condition. MMODL / IJN: [id number] /
--- NOTE | 2019-05-14 16:05 | P.PN ---
Subjective Progress Note Date: 05/14/19 This is an 79-year-old gentleman with known history of coronary artery disease, chronic systolic congestive heart failure, COPD, GERD, hypertension, prior bypass surgery, who presented to the hospital with symptoms of difficulty in breathing. He has been diuresing well on IV Lasix. White blood cell count today 11.4, hemoglobin 7.9, platelet count 166. Sodium 141, potassium 3.3, BUN 35 and creatinine 1.8. Objective - Vital Signs Vital signs: Vital Signs Temp 97.5 F L 05/14/19 12:30 Pulse 93 05/14/19 15:59 Resp 15 05/14/19 15:59 BP 122/65 05/14/19 12:30 Pulse Ox 92 L 05/14/19 12:30 Intake & Output 05/13/19 05/14/19 05/14/19 18:59 06:59 18:59 Intake Total 720 240 840 Output Total 2000 1200 1100 Balance -1280 -960 -260 Weight 76.5 kg 58.5 kg Intake: Oral 720 240 840 Output: Urine 1999 1200 1100 Other: Voiding Method Urinal Diaper Incontinent # Voids 1 - Exam GENERAL: The patient is sitting up in recliner appears to be in no acute distress. He is eating lunch and no respiratory distress is noted. NECK: Supple without JVD or thyromegaly. LUNGS: Breath sounds clear to auscultation bilaterally. Respiration equal and unlabored. Diminished bilaterally. HEART: Regular rate and rhythm without murmurs, rubs or gallops. S1 and S2 heard. ABDOMEN: Soft, bowel sounds present, no tenderness. [place] catheter draining orange urine. EXTREMITIES: Normal range of motion, no edema. No clubbing or cyanosis. Peripheral pulses intact.right groin is soft, no evidence of any hematoma. - Labs CBC & Chem 7: 05/14/19 06:01 05/14/19 06:01 Labs: Abnormal Lab Results - Last 24 Hours (Table) 05/12/19 05/13/19 05/13/19 Range/Units 11:46 17:41 20:15 WBC (3.8-10.6) k/uL RBC (4.30-5.90) m/uL Hgb (13.0-17.5) gm/dL Hct (39.0-53.0) % RDW (11.5-15.5) % Neutrophils # (1.3-7.7) k/uL Lymphocytes # (1.0-4.8) k/uL Potassium (3.5-5.1) mmol/L BUN (9-20) mg/dL Creatinine (0.66-1.25) mg/dL Glucose (74-99) mg/dL POC Glucose (mg/dL) 202 H 244 H (75-99) mg/dL Iron 41 L (65-175) ug/dL 05/14/19 05/14/19 05/14/19 Range/Units 06:01 06:01 06:08 WBC 11.4 H (3.8-10.6) k/uL RBC 2.72 L (4.30-5.90) m/uL Hgb 7.9 L (13.0-17.5) gm/dL Hct 25.0 L (39.0-53.0) % RDW 17.3 H (11.5-15.5) % Neutrophils # 10.4 H (1.3-7.7) k/uL Lymphocytes # 0.7 L (1.0-4.8) k/uL Potassium 3.3 L (3.5-5.1) mmol/L BUN 35 H (9-20) mg/dL Creatinine 1.83 H (0.66-1.25) mg/dL Glucose 137 H (74-99) mg/dL POC Glucose (mg/dL) 162 H (75-99) mg/dL Iron (65-175) ug/dL 05/14/19 Range/Units 11:48 WBC (3.8-10.6) k/uL RBC (4.30-5.90) m/uL Hgb (13.0-17.5) gm/dL Hct (39.0-53.0) % RDW (11.5-15.5) % Neutrophils # (1.3-7.7) k/uL Lymphocytes # (1.0-4.8) k/uL Potassium (3.5-5.1) mmol/L BUN (9-20) mg/dL Creatinine (0.66-1.25) mg/dL Glucose (74-99) mg/dL POC Glucose (mg/dL) 176 H (75-99) mg/dL Iron (65-175) ug/dL Assessment and Plan Plan: Assessment and plan #1 systolic congestive heart failure acute on chronic #2 ischemic cardiomyopathy #3 coronary artery disease with prior bypass surgery and stent placements #4 hypertension #5 COPD #6 hyperlipidemia Dependence #8 anemia Plan We will continue current dose of IV Lasix. We also recommend a workup for the patient's anemia. DNP note has been reviewed, I agree with a documented findings and plan of care. Patient was seen and examined.
--- NOTE | 2019-05-14 16:08 | P.PN ---
Subjective Progress Note Date: 05/14/19 Principal diagnosis: This is a 79-year-old male was recently admitted with CHF acute on chronic systolic dysfunction and is being closely monitored with cardiology. Nephrology has been consulted as well due to worsening creatinine. Current creatinine is 1.83 down from 2.40. Patient is normally oxygen dependent at home and is still having some shortness of breath and currently on 5 L of oxygen via nasal cannula. Patient is currently on IV diuretics as well. Will continue to monitor. Patient denies any chest pain or palpitations at this time. Patient has been afebrile. Patient denies any nausea or vomiting and is tolerating diet. Patient was up and took a shower today. Guarded prognosis. Objective - Vital Signs Vital signs: Vital Signs Temp 97.5 F L 05/14/19 12:30 Pulse 82 05/14/19 13:28 Resp 15 05/14/19 12:30 BP 122/65 05/14/19 12:30 Pulse Ox 92 L 05/14/19 12:30 Intake & Output 05/13/19 05/14/19 05/14/19 18:59 06:59 18:59 Intake Total 720 240 840 Output Total 2000 1200 1100 Balance -1280 -960 -260 Weight 76.5 kg 58.5 kg Intake: Oral 720 240 840 Output: Urine 1999 1200 1100 Other: Voiding Method Urinal Diaper Incontinent # Voids 1 - Exam Gen: This is a 79-year-old male sitting up in the chair in no acute distress. Blood pressure is 122/65, temp is 97.5F, pulse is 97, respirations 15, oxygen saturation is 92% on 5 L nasal cannula. HEENT: Head is atraumatic, normocephalic. Pupils equal, round. Sclerae is anicteric. NECK: Supple. JVD noted on exam. No lymphadenopathy. No thyromegaly. LUNGS: Breath sounds diminished at the bases with scattered rhonchi and crackles noted. No wheezing noted on exam. No intercostal retractions. HEART: S1 and S2 are muffled ABDOMEN: Soft. Bowel sounds are present. No masses. No tenderness. EXTREMITIES: No pedal edema. No calf tenderness. NEUROLOGICAL: Patient is awake, alert and oriented x3. Cranial nerves 2 through 12 are grossly intact. Mild diffuse weakness. Steady gait with a walker. - Labs CBC & Chem 7: 09/03/19 06:01 05/14/19 06:01 Labs: Abnormal Lab Results - Last 24 Hours (Table) 05/12/19 05/13/19 05/13/19 Range/Units 11:46 17:41 20:15 WBC (3.8-10.6) k/uL RBC (4.30-5.90) m/uL Hgb (13.0-17.5) gm/dL Hct (39.0-53.0) % RDW (11.5-15.5) % Neutrophils # (1.3-7.7) k/uL Lymphocytes # (1.0-4.8) k/uL Potassium (3.5-5.1) mmol/L BUN (9-20) mg/dL Creatinine (0.66-1.25) mg/dL Glucose (74-99) mg/dL POC Glucose (mg/dL) 202 H 244 H (75-99) mg/dL Iron 41 L (65-175) ug/dL 05/14/19 05/14/19 05/14/19 Range/Units 06:01 06:01 06:08 WBC 11.4 H (3.8-10.6) k/uL RBC 2.72 L (4.30-5.90) m/uL Hgb 7.9 L (13.0-17.5) gm/dL Hct 25.0 L (39.0-53.0) % RDW 17.3 H (11.5-15.5) % Neutrophils # 10.4 H (1.3-7.7) k/uL Lymphocytes # 0.7 L (1.0-4.8) k/uL Potassium 3.3 L (3.5-5.1) mmol/L BUN 35 H (9-20) mg/dL Creatinine 1.83 H (0.66-1.25) mg/dL Glucose 137 H (74-99) mg/dL POC Glucose (mg/dL) 162 H (75-99) mg/dL Iron (65-175) ug/dL 05/14/19 Range/Units 11:48 WBC (3.8-10.6) k/uL RBC (4.30-5.90) m/uL Hgb (13.0-17.5) gm/dL Hct (39.0-53.0) % RDW (11.5-15.5) % Neutrophils # (1.3-7.7) k/uL Lymphocytes # (1.0-4.8) k/uL Potassium (3.5-5.1) mmol/L BUN (9-20) mg/dL Creatinine (0.66-1.25) mg/dL Glucose (74-99) mg/dL POC Glucose (mg/dL) 176 H (75-99) mg/dL Iron (65-175) ug/dL Assessment and Plan Assessment: Congestive heart failure acute exacerbation with acute on chronic systolic dysfunction, ejection fraction 30-35% with acute hypoxic respiratory failure Increased creatinine with acute tubular necrosis with prerenal acute renal failure Possible chronic kidney disease stage III baseline Troponin 0.036, indeterminate Hypokalemia Anemia, normocytic anemia of chronic disease Thrombocytopenia History of coronary artery disease, coronary artery bypass grafting History of chronic obstructive pulmonary disease History of congestive heart failure Gastroesophageal reflux disease Hyperlipidemia History of myocardial infarction History of degenerative joint disease History of pneumonia History of prostate disorder History of sleep apnea History of back pain, degenerative joint disease History of cataracts History of nicotine dependence Recommendations and discussion: Recommend continue current medications, management, and symptomatically treatment. Patient will continue on steroids and taper accordingly. Continue IV diuretics at this time. Will continue to monitor vital signs and labs closely. Guarded prognosis due to multiple complex medical issues. Further recommendations to follow.
[2019-05-14 16:51] LABS: Glucose,Whole Blood 191 mg/dL (75-99)
[2019-05-14] MEDS: ATORVASTATIN 20 MG TAB PO SCH (20:29)
[2019-05-14 21:12] LABS: Glucose,Whole Blood 155 mg/dL (75-99)
[2019-05-14] MEDS ORDERED: Potassium Replacement Protocol 1 EACH MISC MISCELLANE PRN (23:59)
[2019-05-15] MEDS: POTASSIUM CHLORIDE ER 20 MEQ TAB.ER PO SCH ×3 (00:09→02:06)
[2019-05-15 06:12] LABS: Glucose,Whole Blood 153 mg/dL (75-99)
[2019-05-15] MEDS: INSULIN ASPART (NovoLOG) 100 UNIT/ML VIAL SQ SCH ×4 (06:36→21:44)
[2019-05-15] MEDS: PANTOPRAZOLE 40 MG TABLET PO SCH (06:36)
[2019-05-15] MEDS: LEVOTHYROXINE 112 MCG TAB PO SCH (06:36)
[2019-05-15] MEDS: MIDODRINE 5 MG TAB PO SCH ×3 (06:36→15:33)
[2019-05-15] MEDS: IPRATROPIUM-ALBUTEROL 3 ML NEB INHALATION SCH ×3 (07:10→20:56)
[2019-05-15] MEDS: BUDESONIDE 0.5 MG/2 ML NEBU INHALATION SCH ×2 (07:10→20:56)
[2019-05-15 07:28] LABS: Calcium 8.6 mg/dL (8.4-10.2); Magnesium 1.6 mg/dL (1.6-2.3)
[2019-05-15 07:46] LABS: Anisocytosis Slight; Basophils % (A) 0 %; Eosinophils # (A) 0.1 k/uL (0-0.7); Eosinophils % (A) 1 %; HCT 25.4 % (39.0-53.0); HGB 7.9 gm/dL (13.0-17.5); Hypochromasia Slight; Lymphocytes # (A) 0.6 k/uL (1.0-4.8); Lymphocytes % (A) 7 %; MCH 28.7 pg (25.0-35.0); MCHC 31.2 g/dL (31.0-37.0); MCV 91.8 fL (80.0-100.0); Mean Platelet Volume 8.1; Monocytes # (A) 0.2 k/uL (0-1.0); Monocytes % (A) 2 %; Neutrophils # (A) 7.9 k/uL (1.3-7.7); Neutrophils % (A) 90 %; Platelet Count 188 k/uL (150-450); RBC 2.77 m/uL (4.30-5.90); WBC 8.7 k/uL (3.8-10.6)
[2019-05-15] MEDS: HEPARIN SODIUM,PORCINE 5,000 UNIT/ML 1 ML VIAL SQ SCH ×2 (08:55→21:45)
[2019-05-15] MEDS: FLUDROCORTISONE 0.1 MG TAB PO SCH (08:55)
[2019-05-15] MEDS: methylPREDNISolone SOD SUCCI 40 MG/ML 1 ML VIAL IV SCH ×2 (08:55→15:33)
[2019-05-15] MEDS: NITROGLYCERIN OINT 1 INCH/GM PACKET TOPICAL SCH (09:04)
[2019-05-15] MEDS: MONTELUKAST 10 MG TAB PO SCH (09:04)
[2019-05-15] MEDS: PHENAZOPYRIDINE 200 MG TAB PO SCH ×3 (09:04→21:47)
[2019-05-15] MEDS: SERTRALINE 50 MG TAB PO SCH (09:04)
[2019-05-15] MEDS: OXYBUTYNIN XL 5 MG TAB.ER.24 PO SCH (09:05)
[2019-05-15] MEDS: ASPIRIN 81 MG PO SCH (09:05)
[2019-05-15] MEDS: FUROSEMIDE 10 MG/ML 4 ML VIAL IV SCH (09:11)
--- NOTE | 2019-05-15 11:06 | P.PN ---
Subjective Patient is seen in follow-up for acute kidney injury. Creatinine peaked at 2.4 this admission and is down to 1.36 today. Currently maintained on Lasix 40 mg IV twice daily. Urine output is good. No vomiting or diarrhea. Denies chest pain. Dyspnea improved since admission. Blood pressure controlled. Vital signs are stable. General: The patient appeared well nourished and normally developed. HEENT: Head exam is unremarkable. Neck is without jugular venous distension. LUNGS: Breath sounds decreased. HEART: Rate and Rhythm are regular. First and second heart sounds normal. No murmurs, rubs or gallops. ABDOMEN: Abdominal exam reveals normal bowel sounds. Non-tender and non- distended. No evidence of peritonitis. EXTREMITITES: No clubbing, cyanosis, or edema. Objective - Vital Signs Vital signs: Vital Signs Temp 97.6 F 05/15/19 08:00 Pulse 76 05/15/19 09:19 Resp 21 05/15/19 09:19 BP 136/63 05/15/19 08:00 Pulse Ox 91 L 05/15/19 08:00 Intake & Output 05/14/19 05/15/19 05/15/19 18:59 06:59 18:59 Intake Total 1560 600 200 Output Total 1100 1400 650 Balance 460 -800 -450 Weight 74.8 kg Intake: Oral 1560 600 200 Output: Urine 1100 1400 650 Other: Voiding Method Bedside Commode Urinal Urinal # Voids 1 - Labs CBC & Chem 7: 05/15/19 06:20 05/15/19 06:20 Labs: Abnormal Lab Results - Last 24 Hours (Table) 05/12/19 05/14/19 05/14/19 Range/Units 11:46 06:01 11:48 RBC (4.30-5.90) m/uL Hgb (13.0-17.5) gm/dL Hct (39.0-53.0) % RDW (11.5-15.5) % Neutrophils # (1.3-7.7) k/uL Lymphocytes # (1.0-4.8) k/uL Potassium (3.5-5.1) mmol/L Carbon Dioxide (22-30) mmol/L BUN (9-20) mg/dL Creatinine (0.66-1.25) mg/dL Glucose (74-99) mg/dL POC Glucose (mg/dL) 176 H (75-99) mg/dL Iron 41 L (65-175) ug/dL Ferritin 516.5 H (22.0-322.0) ng/mL 05/14/19 05/14/19 05/14/19 Range/Units 16:49 21:11 23:25 RBC (4.30-5.90) m/uL Hgb (13.0-17.5) gm/dL Hct (39.0-53.0) % RDW (11.5-15.5) % Neutrophils # (1.3-7.7) k/uL Lymphocytes # (1.0-4.8) k/uL Potassium 2.9 L (3.5-5.1) mmol/L Carbon Dioxide (22-30) mmol/L BUN (9-20) mg/dL Creatinine (0.66-1.25) mg/dL Glucose (74-99) mg/dL POC Glucose (mg/dL) 191 H 155 H (75-99) mg/dL Iron (65-175) ug/dL Ferritin (22.0-322.0) ng/mL 05/15/19 05/15/19 05/15/19 Range/Units 06:11 06:20 06:20 RBC 2.77 L (4.30-5.90) m/uL Hgb 7.9 L (13.0-17.5) gm/dL Hct 25.4 L (39.0-53.0) % RDW 17.0 H (11.5-15.5) % Neutrophils # 7.9 H (1.3-7.7) k/uL Lymphocytes # 0.6 L (1.0-4.8) k/uL Potassium (3.5-5.1) mmol/L Carbon Dioxide 33 H (22-30) mmol/L BUN 35 H (9-20) mg/dL Creatinine 1.36 H (0.66-1.25) mg/dL Glucose 130 H (74-99) mg/dL POC Glucose (mg/dL) 153 H (75-99) mg/dL Iron (65-175) ug/dL Ferritin (22.0-322.0) ng/mL Assessment and Plan Plan: Assessment: 1. Acute kidney injury mostly prerenal secondary to cardiorenal syndrome. Creatinine peaked at 2.4 this admission and is 1.36 today. UA is benign. No evidence of urinary retention. 2. Dyspnea secondary to volume overload. Improved since admission. 3. Acute on chronic systolic CHF with ejection fraction of 30-35%. 4. Hypokalemia secondary to diuresis. Improved. Patient is also on Florinef which will lead to renal potassium wasting. 5. History of coronary artery disease status post CABG. 6. Hypomagnesemia secondary to diuresis. Plan: Change Lasix to 40 mg orally twice daily. Replace magnesium. 2 g IV today. Avoid nephrotoxins.
[2019-05-15 12:04] LABS: Glucose,Whole Blood 208 mg/dL (75-99)
[2019-05-15] MEDS: MAGNESIUM SULFATE-D5W PMX 1 GM in DEXTROSE/WATER 1 100ML.BAG IVPB SCH ×2 (12:13→13:10)
[2019-05-15] MEDS: FUROSEMIDE 40 MG TAB PO SCH (15:33)
--- NOTE | 2019-05-15 15:59 | P.PN ---
Subjective Progress Note Date: 05/15/19 Principal diagnosis: This is a 79-year-old male was recently admitted with CHF acute on chronic systolic dysfunction and is being closely monitored with cardiology. Nephrology has been consulted as well due to worsening creatinine. Current creatinine is 1.83 down from 2.40. Patient is normally oxygen dependent at home and is still having some shortness of breath and currently on 5 L of oxygen via nasal cannula. Patient is currently on IV diuretics as well. Will continue to monitor. Patient denies any chest pain or palpitations at this time. Patient has been afebrile. Patient denies any nausea or vomiting and is tolerating diet. Patient was up and took a shower today. Guarded prognosis. 05/15/2019 Patient is lying in bed resting but easily arousable and appears to be in no acute distress. Patient is currently still on IV diuretics and diuresing well. Patient is still having some shortness of breath but has improved since admission. Patient becomes slightly winded when talking in length or when walking. Patient is currently on 5 L of oxygen via nasal cannula and is being closely monitored. Patient normally requires 2-3 L of oxygen while at home. Ne phrology and cardiology are following closely. Per nephrology recommendations patient will be transitioned to oral Lasix and will continue to monitor. Patient would like to go home. Patient states that he will be receiving home care when he is discharged. She denies any chest pain or palpitations at this time. Patient denies any nausea or vomiting and is been tolerating diet. Patient is afebrile at this time. Will attempt to wean some of his oxygen requirements. Guarded prognosis. Objective - Vital Signs Vital signs: Vital Signs Temp 98.0 F 05/15/19 15:30 Pulse 85 05/15/19 15:30 Resp 20 05/15/19 15:30 BP 114/76 05/15/19 15:30 Pulse Ox 90 L 05/15/19 15:30 Intake & Output 05/14/19 05/15/19 05/15/19 18:59 06:59 18:59 Intake Total 1560 600 558 Output Total 1100 1400 2350 Balance 900 -596 -1558 Weight 74.8 kg Intake: IV 40 Invasive Line 2 40 Oral 1560 600 518 Output: Urine 1100 1400 2350 Other: Voiding Method Bedside Commode Urinal Urinal # Voids 1 - Exam Gen: This is a 79-year-old male sitting up in the chair in no acute distress. Blood pressure is 127/60, temp is 98.2 F, pulse is 76, respirations 21, oxygen saturation is 92% on 5 L nasal cannula. HEENT: Head is atraumatic, normocephalic. Pupils equal, round. Sclerae is anicteric. NECK: Supple. JVD noted on exam. No lymphadenopathy. No thyromegaly. LUNGS: Breath sounds diminished at the bases with mild scattered rhonchi and crackles noted. No wheezing noted on exam. No intercostal retractions. HEART: S1 and S2 are muffled ABDOMEN: Soft. Bowel sounds are present. No masses. No tenderness. EXTREMITIES: No pedal edema. No calf tenderness. NEUROLOGICAL: Patient is awake, alert and oriented x3. Cranial nerves 2 through 12 are grossly intact. Mild diffuse weakness. Steady gait with a walker. - Labs CBC & Chem 7: 05/15/19 06:20 05/15/19 06:20 Labs: Abnormal Lab Results - Last 24 Hours (Table) 05/14/19 05/14/19 05/14/19 Range/Units 06:01 16:49 21:11 RBC (4.30-5.90) m/uL Hgb (13.0-17.5) gm/dL Hct (39.0-53.0) % RDW (11.5-15.5) % Neutrophils # (1.3-7.7) k/uL Lymphocytes # (1.0-4.8) k/uL Potassium (3.5-5.1) mmol/L Carbon Dioxide (22-30) mmol/L BUN (9-20) mg/dL Creatinine (0.66-1.25) mg/dL Glucose (74-99) mg/dL POC Glucose (mg/dL) 191 H 155 H (75-99) mg/dL Ferritin 516.5 H (22.0-322.0) ng/mL 05/14/19 05/15/19 05/15/19 Range/Units 23:25 06:11 06:20 RBC 2.77 L (4.30-5.90) m/uL Hgb 7.9 L (13.0-17.5) gm/dL Hct 25.4 L (39.0-53.0) % RDW 17.0 H (11.5-15.5) % Neutrophils # 7.9 H (1.3-7.7) k/uL Lymphocytes # 0.6 L (1.0-4.8) k/uL Potassium 2.9 L (3.5-5.1) mmol/L Carbon Dioxide (22-30) mmol/L BUN (9-20) mg/dL Creatinine (0.66-1.25) mg/dL Glucose (74-99) mg/dL POC Glucose (mg/dL) 153 H (75-99) mg/dL Ferritin (22.0-322.0) ng/mL 05/15/19 05/15/19 Range/Units 06:20 11:46 RBC (4.30-5.90) m/uL Hgb (13.0-17.5) gm/dL Hct (39.0-53.0) % RDW (11.5-15.5) % Neutrophils # (1.3-7.7) k/uL Lymphocytes # (1.0-4.8) k/uL Potassium (3.5-5.1) mmol/L Carbon Dioxide 33 H (22-30) mmol/L BUN 35 H (9-20) mg/dL Creatinine 1.36 H (0.66-1.25) mg/dL Glucose 130 H (74-99) mg/dL POC Glucose (mg/dL) 208 H (75-99) mg/dL Ferritin (22.0-322.0) ng/mL Assessment and Plan Assessment: Congestive heart failure acute exacerbation with acute on chronic systolic dysfunction, ejection fraction 30-35% with acute hypoxic respiratory failure Increased creatinine with acute tubular necrosis with prerenal acute renal fail ure; improved current creatinine 1.36 Possible chronic kidney disease stage III baseline Troponin 0.036, indeterminate Hypokalemia; replaced current potassium 4.0 Anemia, normocytic anemia of chronic disease Thrombocytopenia History of coronary artery disease, coronary artery bypass grafting History of chronic obstructive pulmonary disease History of congestive heart failure Gastroesophageal reflux disease Hyperlipidemia History of myocardial infarction History of degenerative joint disease History of pneumonia History of prostate disorder History of sleep apnea History of back pain, degenerative joint disease History of cataracts History of nicotine dependence Recommendations and discussion: Recommend continue current medications, management, and symptomatically treatment. Patient will continue on steroids and taper accordingly. IV Lasix being transitioned to oral Lasix. Will continue to monitor vital signs and labs closely. Guarded prognosis due to multiple complex medical issues. Further recommendations to follow. Possible discharge in 24-48 hours.
[2019-05-15 17:04] LABS: Glucose,Whole Blood 154 mg/dL (75-99)
--- NOTE | 2019-05-15 18:10 | PN ---
PROGRESS NOTE This patient was admitted with congestive cardiac failure. Patient is feeling better. Denies any orthopnea or PND. He is lying comfortably in the bed without any problem. The patient is afebrile. Blood pressure is 127/62 mmHg. Respirations are not labored. Oxygen saturation is 92%. First and second heart sounds are heard. No rales are noted. The patient's hemoglobin remains 7.9. Creatinine is 1.36. The patient's medications are reviewed. We will recheck the chest x-ray. We will try the patient on a small dose of Cozaar 12.5 mg daily. Patient's blood pressure has remained stable. We will also decrease the dose of Florinef to 0.1 mg daily. MMODL / IJN: [id number] /
[2019-05-15 21:10] LABS: Glucose,Whole Blood 164 mg/dL (75-99)
[2019-05-15] MEDS: ATORVASTATIN 20 MG TAB PO SCH (21:44)
--- NOTE | 2019-05-15 23:37 | PN ---
PROGRESS NOTE DATE OF SERVICE: 05/15/2019 This patient has been hemodynamically stable. He is less short of breath and doing better overall. On physical examination, his blood pressure is 114/61, respiratory rate of 18, pulse rate of 79, temperature 97.6. Oxygen saturation on 5 L by nasal cannula is 93%. HEENT reveals pupils that are equal. Chest reveals decreased breath sounds at the bases. Cardiovascular system with an S1, S2. No S3, no S4. No murmurs. Abdomen is soft. There is trace pedal edema. Sodium is 141, potassium 4, chloride 99, bicarb 23, BUN 35, creatinine 1.36. White count of 8.7, hemoglobin of 7.9. IMPRESSION AT THIS TIME: 1. Congestive heart failure with pleural effusion, with which he is doing better overall. 2. Acute renal failure, for which he is improving, and creatinine is also improving. 3. Anemia, etiology of which is unclear, for which he would require further workup, and we will defer to the primary team to further evaluate the anemia. 4. Chronic obstructive pulmonary disease with exacerbation. Switch him to oral steroids. Increase his activity level. Continue bronchodilators. Depending on how he does, we shall make further changes to his care. He was counseled regarding his condition and this approach. MMODL / IJN: [id number] /
[2019-05-16 01:20] VITALS: RESP 20
[2019-05-16 06:50] VITALS: BP 105/60; TEMP 97.8
[2019-05-16 07:07] LABS: Glucose,Whole Blood 149 mg/dL (75-99)
[2019-05-16] MEDS: MONTELUKAST 10 MG TAB PO SCH (08:00)
[2019-05-16] MEDS: LEVOTHYROXINE 112 MCG TAB PO SCH (08:00)
[2019-05-16] MEDS: HEPARIN SODIUM,PORCINE 5,000 UNIT/ML 1 ML VIAL SQ SCH (08:00)
[2019-05-16] MEDS: ASPIRIN 81 MG PO SCH (08:00)
[2019-05-16] MEDS: INSULIN ASPART (NovoLOG) 100 UNIT/ML VIAL SQ SCH ×2 (08:00→12:57)
[2019-05-16] MEDS: FUROSEMIDE 40 MG TAB PO SCH (08:00)
[2019-05-16] MEDS: PANTOPRAZOLE 40 MG TABLET PO SCH (08:00)
[2019-05-16] MEDS: BUDESONIDE 0.5 MG/2 ML NEBU INHALATION SCH (08:25)
[2019-05-16] MEDS: IPRATROPIUM-ALBUTEROL 3 ML NEB INHALATION SCH ×2 (08:25→15:20)
[2019-05-16 08:34] LABS: Calcium 8.2 mg/dL (8.4-10.2); Potassium 3.3 mmol/L (3.5-5.1)
[2019-05-16] MEDS ORDERED: LOSARTAN 25 MG TAB PO SCH (09:00)
[2019-05-16] MEDS ORDERED: predniSONE 20 MG TAB PO SCH (09:00)
[2019-05-16] MEDS ORDERED: FLUDROCORTISONE 0.1 MG TAB PO SCH (09:00)
[2019-05-16] MEDS: OXYBUTYNIN XL 5 MG TAB.ER.24 PO SCH (10:33)
[2019-05-16] MEDS: MIDODRINE 5 MG TAB PO SCH ×2 (10:33→14:00)
[2019-05-16] MEDS: PHENAZOPYRIDINE 200 MG TAB PO SCH (10:33)
--- NOTE | 2019-05-16 10:50 | XR ---
EXAMINATION TYPE: XR chest 1V portable DATE OF EXAM: 05/16/2019 COMPARISON: May 13, 2019 HISTORY: Shortness of breath FINDINGS: Noted is pulmonary venous congestion with scattered infiltrates. There is also cardiomegaly and small effusions. IMPRESSION: Findings compatible with minimally improved congestive failure. Infiltrates of other etiology are no t excluded. Clinical correlation and progress studies are recommended.
[2019-05-16 11:26] LABS: Glucose,Whole Blood 215 mg/dL (75-99)
[2019-05-16] MEDS ORDERED: POTASSIUM CHLORIDE ER 20 MEQ TAB.ER PO STA ×2 (12:04→12:08)
--- NOTE | 2019-05-16 12:04 | P.PN ---
Subjective Patient is seen in follow-up for acute kidney injury. Creatinine peaked at 2.4 this admission and is down to 1.09 today. Currently maintained on Lasix 40 mg orally twice daily. Urine output is good. No vomiting or diarrhea. Denies chest pain. Dyspnea improved since admission. Blood pressure controlled. No active complaints at this time. Vital signs are stable. General: The patient appeared well nourished and normally developed. HEENT: Head exam is unremarkable. Neck is without jugular venous distension. LUNGS: Breath sounds decreased. HEART: Rate and Rhythm are regular. First and second heart sounds normal. No murmurs, rubs or gallops. ABDOMEN: Abdominal exam reveals normal bowel sounds. Non-tender and non- distended. No evidence of peritonitis. EXTREMITITES: No clubbing, cyanosis, or edema. Objective - Vital Signs Vital signs: Vital Signs Temp 97.8 F 05/16/19 05:00 Pulse 84 05/16/19 08:44 Resp 20 05/16/19 05:00 BP 105/60 05/16/19 05:00 Pulse Ox 92 L 05/16/19 08:25 Intake & Output 05/15/19 05/16/19 05/16/19 18:59 06:59 18:59 Intake Total 906 440 Output Total 2350 2000 400 Balance -1444 -1560 -400 Intake: IV 40 20 Invasive Line 2 40 20 Oral 866 420 Output: Urine 2350 2000 400 Other: Voiding Method Toilet Toilet Urinal Urinal - Labs CBC & Chem 7: 05/15/19 06:20 05/16/19 07:30 Labs: Abnormal Lab Results - Last 24 Hours (Table) 05/15/19 05/15/19 05/15/19 Range/Units 11:46 16:48 21:08 Potassium (3.5-5.1) mmol/L Carbon Dioxide (22-30) mmol/L BUN (9-20) mg/dL Glucose (74-99) mg/dL POC Glucose (mg/dL) 208 H 154 H 164 H (75-99) mg/dL Calcium (8.4-10.2) mg/dL 05/16/19 05/16/19 05/16/19 Range/Units 07:05 07:30 11:24 Potassium 3.3 L (3.5-5.1) mmol/L Carbon Dioxide 37 H (22-30) mmol/L BUN 35 H (9-20) mg/dL Glucose 127 H (74-99) mg/dL POC Glucose (mg/dL) 149 H 215 H (75-99) mg/dL Calcium 8.2 L (8.4-10.2) mg/dL Assessment and Plan Plan: Assessment: 1. Acute kidney injury mostly prerenal secondary to cardiorenal syndrome. Creatinine peaked at 2.4 this admission and is 1.09 today. UA is benign. No evidence of urinary retention. 2. Dyspnea secondary to volume overload. Improved since admission. 3. Acute on chronic systolic CHF with ejection fraction of 30-35%. 4. Hypokalemia secondary to diuresis. Patient is also on Florinef which will lead to renal potassium wasting. 5. History of coronary artery disease status post CABG. 6. Hypomagnesemia secondary to diuresis. Status post replacement. Improved. Plan: Maintain Lasix 40 mg orally twice daily. Avoid nephrotoxins. Replace potassium. 40 mEq today. Add maintenance potassium supplementation.
--- NOTE | 2019-05-16 13:13 | P.DS ---
Providers Date of admission: 05/12/19 13:28 Expected date of discharge: 05/16/19 Attending physician: Derrick Luis MD Consults: 05/12/19 13:28 Consult Physician Routine Consulting Provider: Alex Parr Consult Reason/Comments: dyspnea Do you want consulting provider notified?: Yes Consult Physician Routine Consulting Provider: Lázaro Gayle Consult Reason/Comments: chf Do you want consulting provider notified?: Yes 05/13/19 11:16 Consult Physician Routine Consulting Provider: Leyla Mtz Consult Reason/Comments: arf Do you want consulting provider notified?: Yes Primary care physician: Jess Hawkinsarlo [facility] Course: Final diagnosis Congestive heart failure acute exacerbation with acute on chronic systolic dysfunction, ejection fraction 30-35% with acute hypoxic respiratory failure Increased creatinine with acute tubular necrosis with prerenal acute renal failure Possible chronic kidney disease stage III is baseline Elevated troponin 0.036, indeterminate Hypokalemia Anemia, normocytic anemia of chronic disease Thrombocytopenia History of coronary artery disease, coronary artery bypass grafting History of chronic obstructive pulmonary disease History of congestive heart failure Gastroesophageal reflux disease Hyperlipidemia History of myocardial infarction History of degenerative joint disease History of pneumonia History of prostate disorder History of sleep apnea History of back pain History of cataracts History of nicotine dependence Discharge disposition Patient is being discharged in a stable condition with guarded prognosis to home and Homecare will be following. Patient is to follow-up with pulmonary and cardiology as well as nephrology within the next 1-2 weeks. This is an 79-year-old male who is a patient of Dr. Wallace's and will follow-up with him this week. History of present illness This is an 79-year-old male who was recently admitted for CHF exacerbation with acute on chronic systolic dysfunction and was being closely monitored. Patient continued to have shortness of breath during hospitalization requiring 5 L of oxygen via nasal cannula. Patient normally uses 3 L of oxygen at home. During hospitalization patient was on IV Lasix and has been transitioned to oral Lasix and will continue in the outpatient setting. Patient has been tolerating well. Patient will also be following up with urology in the outpatient setting as discussed before. Patient denies any chest pain, shortness of breath, or palpitations at this time. Patient states that his breathing is much better and would like to go home today. Patient denies any nausea or vomiting and is been tolerating diet. Patient has remained afebrile. Patient gait is steady with a walker and has a walker at home as well. Patient lives at home with his . Currently patient's condition is stable with much improvement and will be discharged today with a guarded prognosis. On exam vital signs are stable. Temperature is 97.8F, pulse is 81, respirations are 20, blood pressure is 105/60, oxygen saturation is 92% on 5 L. Cardio S1 and S2 are muffled. Respiratory system shows diminished breath sounds at the bases with mild expiratory wheezing noted in a few scattered crackles noted at the bases. Abdomen is soft, thin, and nontender. Nervous system shows no focal deficits with a steady gait. Please refer to medication reconciliation sheet for a list of medications. Patient Condition at Discharge: Fair Plan - Discharge Summary Discharge Rx Participant: No New Discharge Prescriptions: New Losartan [Cozaar] 12.5 mg PO DAILY #30 tab Fluticasone Nasal Gurley [Flonase Nasal Gurley] 1 spray EA NOSTRIL DAILY 30 Days #1 bottle Fludrocortisone [Florinef] 0.1 mg PO DAILY #30 tab Potassium Chloride ER [K-Dur 20] 20 meq PO DAILY 30 Days #30 tab Furosemide [Lasix] 40 mg PO BID@0900,1600 30 Days #60 tab predniSONE 10 mg PO DIRECTED #30 tab Continue Sertraline [Zoloft] 50 mg PO DAILY Levothyroxine Sodium [Synthroid] 112 mcg PO DAILY Isosorbide Mononitrate ER [Imdur] 30 mg PO DAILY Atorvastatin [Lipitor] 20 mg PO HS Tolterodine ER [Detrol LA] 2 mg PO DAILY Montelukast [Singulair] 10 mg PO DAILY Ipratropium-Albuterol Nebulize [Duoneb 0.5 mg-3 mg/3 ml Soln] 3 ml INHALATION RT-TID Budesonide-Formot 160-4.5 Mcg [Symbicort 160-4.5 Mcg Inhaler] 2 puff INHALATION RT-BID Cranberry Fruit Concentrate [Azo Cranberry] 250 mg PO DAILY Aspirin 81 mg PO DAILY #30 chew Midodrine [ProAmatine] 10 mg PO AC-TID #90 tab Pantoprazole [Protonix] 40 mg PO DAILY #30 tablet. Phenazopyridine [Pyridium] 200 mg PO TID #9 tab Acetaminophen Tab [Tylenol] 650 mg PO Q4HR PRN tab PRN Reason: Fever And/Or Mild Pain Discontinued Fludrocortisone [Florinef] 0.2 mg PO DAILY #30 tab Furosemide [Lasix] 20 mg PO DAILY #30 tab Discharge Medication List Atorvastatin [Lipitor] 20 mg PO HS 05/09/17 [History] Isosorbide Mononitrate ER [Imdur] 30 mg PO DAILY 05/09/17 [History] Levothyroxine Sodium [Synthroid] 112 mcg PO DAILY 05/09/17 [History] Sertraline [Zoloft] 50 mg PO DAILY 05/09/17 [History] Tolterodine ER [Detrol LA] 2 mg PO DAILY 02/20/19 [History] Ipratropium-Albuterol Nebulize [Duoneb 0.5 mg-3 mg/3 ml Soln] 3 ml INHALATION RT-TID 03/29/19 [History] Montelukast [Singulair] 10 mg PO DAILY 03/29/19 [History] Budesonide-Formot 160-4.5 Mcg [Symbicort 160-4.5 Mcg Inhaler] 2 puff INHALATION RT-BID 04/08/19 [History] Cranberry Fruit Concentrate [Azo Cranberry] 250 mg PO DAILY 04/08/19 [History] Acetaminophen Tab [Tylenol] 650 mg PO Q4HR PRN tab 04/17/19 [Rx] Aspirin 81 mg PO DAILY #30 chew 04/17/19 [Rx] Midodrine [ProAmatine] 10 mg PO AC-TID #90 tab 04/17/19 [Rx] Pantoprazole [Protonix] 40 mg PO DAILY #30 tablet.dr 04/17/19 [Rx] Phenazopyridine [Pyridium] 200 mg PO TID #9 tab 04/17/19 [Rx] Fludrocortisone [Florinef] 0.1 mg PO DAILY #30 tab 05/16/19 [Rx] Fluticasone Nasal Gurley [Flonase Nasal Gurley] 1 spray EA NOSTRIL DAILY 30 Days #1 bottle 05/16/19 [Rx] Furosemide [Lasix] 40 mg PO BID@0900,1600 30 Days #60 tab 05/16/19 [Rx] Losartan [Cozaar] 12.5 mg PO DAILY #30 tab 05/16/19 [Rx] Potassium Chloride ER [K-Dur 20] 20 meq PO DAILY 30 Days #30 tab 05/16/19 [Rx] predniSONE 10 mg PO DIRECTED #30 tab 05/16/19 [Rx] Follow up Appointment(s)/Referral(s): Leyla Mtz MD [STAFF PHYSICIAN] - 07/04/19 9:40 am (Kidney specialist.) Jess Wallace DO [Primary Care Provider] - 1-2 days Jamison Carvalho MD [STAFF PHYSICIAN] - 1 Week (Office closed on Wednesdays, please call and schedule follow up appointment within one week of being discharged. ) Hany Kilpatrick MD [STAFF PHYSICIAN] - 05/31/19 3:00 pm () Ambulatory/Diagnostic Orders: Basic Metabolic Panel [LAB.AMB] Time Frame: 2 Days, Location: None Selected Complete Blood Count w/diff [LAB.AMB] Time Frame: 2 Days, Location: None Selected Patient Instructions/Handouts: Heart Failure (DC), Heart Healthy Diet (DC), Anemia (DC) Activity/Diet/Wound Care/Special Instructions: Activity Limited until follow-up Follow-up with primary care provider this week Follow-up with specialists as scheduled Continue current diet Homecare will be following Discharge Disposition: HOME WITH HOME HEALTH SERVICES
--- NOTE | 2019-05-16 13:15 | P.PN ---
Subjective This is a pleasant 79-year-old male past medical history significant for coronary artery disease s/p bypass grafting, chronic systolic heart failure, ischemic cardiomyopathy, COPD, hypertension, dyslipidemia and chronic nicotine dependence. We are following him secondary to congestive heart failure and hypotension. He is currently maintained on losartan 12.5 mg daily, aspirin 81 mg daily, atorvastatin 20 mg daily, florinef 0.1 mg daily, lasix 40 mg BID and midodrine 10 mg TID. Laboratory data reviewed, sodium 140, potassium 3.3, cre atinine 1.09 and magnesium 2.0. He is seen and examined sitting up in bed in no acute distress. He continues to feel short of breath. He states since eating lunch he started feeling short of breath again. He denies chest pain, dizziness or palpitations. Repeat chest xray today shows minimal improvement in CHF, infiltrates of other etiology not excluded. GENERAL: Well-appearing, well-nourished and in no acute distress. NECK: Supple without JVD or thyromegaly. LUNGS: Respiration equal and unlabored. Diminished bilaterally. Trace rhonchi on the left. No wheezes or rales. HEART: Regular rate and rhythm with no murmurs, rubs or gallops. S1 and S2 heard. EXTREMITIES: Normal range of motion, no edema. No clubbing or cyanosis. Peripheral pulses intact. ASSESSMENT Acute on chronic systolic heart failure Ischemic cardiomyopathy Acute exacerbation of COPD Hypokalemia Anemia, normocytic normochromic History of coronary artery disease s/p bypass grafting PLAN Clinically he is euvolemic. Tolerating losartan added yesterday. Currently not on beta blockers due to hypotension. Hypotension likely related to anemia. Baseline hgb in February of this year was 13, now is 7.9. Ongoing evaluation per primary care team. Follow up appointment has been made in the office. We will follow as needed. Please feel free to call with further questions or concerns. Nurse Practitioner note has been reviewed, I agree with a documented findings and plan of care. Patient was seen and examined. Objective - Vital Signs Vital signs: Vital Signs Temp 97.8 F 05/16/19 05:00 Pulse 84 05/16/19 08:44 Resp 20 05/16/19 05:00 BP 105/60 05/16/19 05:00 Pulse Ox 92 L 05/16/19 08:25 Intake & Output 05/15/19 05/16/19 05/16/19 18:59 06:59 18:59 Intake Total 906 440 Output Total 2349 1999 400 Balance -1444 -1560 -400 Intake: IV 40 20 Invasive Line 2 40 20 Oral 866 420 Output: Urine 2349 1999 400 Other: Voiding Method Toilet Toilet Urinal Urinal - Labs CBC & Chem 7: 05/15/19 06:20 05/16/19 07:30 Labs: Abnormal Lab Results - Last 24 Hours (Table) 05/15/19 05/15/19 05/16/19 Range/Units 16:48 21:08 07:05 Potassium (3.5-5.1) mmol/L Carbon Dioxide (22-30) mmol/L BUN (9-20) mg/dL Glucose (74-99) mg/dL POC Glucose (mg/dL) 154 H 164 H 149 H (75-99) mg/dL Calcium (8.4-10.2) mg/dL 05/16/19 05/16/19 Range/Units 07:30 11:24 Potassium 3.3 L (3.5-5.1) mmol/L Carbon Dioxide 37 H (22-30) mmol/L BUN 35 H (9-20) mg/dL Glucose 127 H (74-99) mg/dL POC Glucose (mg/dL) 215 H (75-99) mg/dL Calcium 8.2 L (8.4-10.2) mg/dL
[2019-05-16] MEDS: SERTRALINE 50 MG TAB PO SCH (14:00)
[2019-05-16 15:21] VITALS: PULSE 80
--- NOTE | 2019-05-16 16:00 | PN ---
PROGRESS NOTE DATE OF SERVICE: 05/16/2019 The patient is an 79-year-old male who is seen sitting up in a chair. He is awake, alert. He denies worsening shortness of breath. Denies any pain. He is hemodynamically stable, afebrile, in no acute distress. PHYSICAL EXAMINATION: VITAL SIGNS: Temperature is 97.8, heart rate 81, respiratory rate 20. Blood pressure is 105/60 with an oxygen saturation of 92% on oxygen at 5 L via nasal cannula. HEENT: Head is normocephalic, atraumatic. NECK: Supple. Trachea is midline. LUNGS: Decreased breath sounds. HEART: S1, S2 are heard. Irregular. Not tachycardic. Abdomen is soft. Bowel sounds are heard. Extremities with no edema. NEUROLOGIC: Patient is awake and alert. IMAGING: Chest x-ray done today shows findings compatible with minimally improved congestive heart failure. Infiltrates of other etiology are not excluded. Clinical correlation and progress studies are recommended. LABS: Sodium is 140, potassium 3.3, chloride 98. CO2 is 37. Anion gap is 5. BUN is 35, creatinine 1.09. Glucose is 127. Calcium is 8.2. Magnesium is 2.0. IMPRESSION: 1. Congestive heart failure with pleural effusion. 2. Acute renal failure. 3. Anemia. 4. Chronic obstructive pulmonary disease with acute exacerbation. PLAN: Continue current medications, which have been reviewed. Continue bronchodilators and aerosol steroids. Continue p.o. prednisone with slow tapering. Continue GI and DVT prophylaxis. Potassium is being replaced. Should patient be discharged home, he is to follow up in the office with Dr. Parr early next week. MMODL / IJN: [id number] /
[2019-05-17] MEDS ORDERED: POTASSIUM CHLORIDE ER 20 MEQ TAB.ER PO SCH (09:00)
== END 2019-05-16 16:05 | DRG 291 ==
LOC: EC 11:20 → 3SCARD 13:28 → 3NMEDONC 05-16 00:16
PROVIDERS: ADMIT Internal Medicine; ATTEND Internal Medicine
DX: I13.0 Hypertensive heart and chronic kidney disease with heart failure and stage 1 through stage 4 chronic kidney disease, or unspecified chronic kidney disease (principal); I50.23 Acute on chronic systolic (congestive) heart failure; J96.01 Acute respiratory failure with hypoxia; N17.0 Acute kidney failure with tubular necrosis; J44.1 Chronic obstructive pulmonary disease with (acute) exacerbation; I25.5 Ischemic cardiomyopathy; I25.2 Old myocardial infarction; N18.3 Chronic kidney disease, stage 3 (moderate); F17.210 Nicotine dependence, cigarettes, uncomplicated; D63.8 Anemia in other chronic diseases classified elsewhere; D69.6 Thrombocytopenia, unspecified; E11.22 Type 2 diabetes mellitus with diabetic chronic kidney disease; E78.5 Hyperlipidemia, unspecified; E83.42 Hypomagnesemia; E87.6 Hypokalemia; G47.33 Obstructive sleep apnea (adult) (pediatric); I25.10 Atherosclerotic heart disease of native coronary artery without angina pectoris; I42.0 Dilated cardiomyopathy; K21.9 Gastro-esophageal reflux disease without esophagitis; N40.0 Benign prostatic hyperplasia without lower urinary tract symptoms; T50.2X5A Adverse effect of carbonic-anhydrase inhibitors, benzothiadiazides and other diuretics, initial encounter; Z79.4 Long term (current) use of insulin; Z79.51 Long term (current) use of inhaled steroids; Z79.82 Long term (current) use of aspirin; Z79.890 Hormone replacement therapy; Z79.899 Other long term (current) drug therapy; Z80.0 Family history of malignant neoplasm of digestive organs; Z80.3 Family history of malignant neoplasm of breast; Z82.5 Family history of asthma and other chronic lower respiratory diseases; Z85.828 Personal history of other malignant neoplasm of skin; Z87.01 Personal history of pneumonia (recurrent); Z95.1 Presence of aortocoronary bypass graft; Z99.81 Dependence on supplemental oxygen; Z98.42 Cataract extraction status, left eye; Z98.41 Cataract extraction status, right eye; R74.8 Abnormal levels of other serum enzymes; M54.9 Dorsalgia, unspecified
CPT/HCPCS: 36415; 71045; 71046; 80048; 80053; 81003; 82728; 83540; 83550; 83735; 83880; 84132; 84484; 85025; 85610; 85730; 93005; 94640; 94760; 96374; 96375; 99285

== ENCOUNTER 2019-05-20 21:17 | Inpatient (IN) | payer MEDICARE ==
[2019-05-20] MEDS ORDERED: SODIUM CHLORIDE 0.9% 1,000 ML IV STA (22:16)
[2019-05-20 22:56] LABS: Albumin 2.4 g/dL (3.5-5.0); Calcium 7.6 mg/dL (8.4-10.2); Potassium 3.4 mmol/L (3.5-5.1); Total Bilirubin 1.4 mg/dL (0.2-1.3); Total Protein 4.8 g/dL (6.3-8.2)
--- NOTE | 2019-05-20 23:14 | XR ---
EXAM: XR Chest, 2 Views CLINICAL HISTORY: ITS.REASON XR Reason: difficulty breathing TECHNIQUE: Frontal and lateral views of the chest. COMPARISON: Chest radiograph on 05/16/2019 FINDINGS: Hardware: None. Lungs/pleura: Similar small bilateral pleural effusions. Bibasilar atelectasis versus pneumonia. Diffuse interstitial and hazy opacities. Heart/mediastinum: Stable cardiomediastinal silhouette. Atherosclerotic calcifications in the aorta. Median sternotomy and CABG changes. Soft tissues: Unremarkable. Bones: Age indeterminate but likely chronic mild anterior wedging of lower thoracic vertebral bodies. Degenerative changes of the visualized left acromioclavicular joint. Degenerative changes of the spine. Elevation of the humeral heads is suggestive of chronic rotator cuff tears. Upper abdomen: Normal. IMPRESSION: Similar small bilateral pleural effusions. Bibasilar atelectasis versus pneumonia. Diffuse interstitial and hazy opacities which may represent pulmonary edema and pulmonary vasculature congestion. Component of infectious/inflammatory process is not excluded.
[2019-05-20] MEDS ORDERED: SODIUM CHLORIDE 0.9% 1,000 ML IV ONE (23:41)
--- NOTE | 2019-05-20 23:54 | ED ---
General Adult HPI - General Source: EMS, old records reviewed Mode of arrival: ambulatory Limitations: physical limitation <Quincy Navarro - Last Filed: 05/21/19 04:35> <Yamile Wise - Last Filed: 05/24/19 06:02> - General Chief complaint: Shortness of Breath Stated complaint: Pneumonia Time Seen by Provider: 05/20/19 21:57 - History of Present Illness Initial comments: She has an 79-year-old male with multiple comorbidities presenting to emergency Department with chief complaint shortness of breath. Patient was brought to the emergency department via EMS from [facility] [place]. Patient was given albuterol treatment and ambulatory. Patient is currently undergoing treatment for pneumonia. is also present in the room as a historian. reports patient developed exacerbation of his breathing symptoms with increased sputum production. also reports the patient developed chills. With denies any nausea or vomiting. Patient also reports penile pain. 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 Patient reports dysuria. Patient denies chest pain, headaches or abdominal pain.patient does have a history of COPD and is on 4 L of oxygen at home. (Quincy Navarro) - Related Data Home Medications Medication Instructions Recorded Confirmed Atorvastatin [Lipitor] 20 mg PO HS@199905/09/17 05/20/19 Isosorbide Mononitrate ER [Imdur] 30 mg PO DAILY 05/09/17 05/20/19 Levothyroxine Sodium [Synthroid] 112 mcg PO DAILY 05/09/17 05/20/19 Sertraline [Zoloft] 50 mg PO HS 05/09/17 05/20/19 Tolterodine ER [Detrol LA] 2 mg PO DAILY 02/20/19 05/20/19 Ipratropium-Albuterol Nebulize 3 ml INHALATION RT-TID 03/29/19 05/20/19 [Duoneb 0.5 mg-3 mg/3 ml Soln] Montelukast [Singulair] 10 mg PO HS 03/29/19 05/20/19 Budesonide-Formot 160-4.5 Mcg 2 puff INHALATION RT-BID 04/08/19 05/20/19 [Symbicort 160-4.5 Mcg Inhaler] Cranberry Fruit Concentrate [Azo 250 mg PO DAILY 04/08/19 05/20/19 Cranberry] Amoxic-Pot Clav 875-125Mg 1 tab PO BID@0700,1900 05/20/19 05/20/19 [Augmentin 875-125] Ensure 1 can PO DAILY 05/20/19 05/20/19 Fluconazole [Diflucan] 150 mg PO ONCE 05/20/19 05/20/19 Furosemide [Lasix] 40 mg PO BID 05/20/19 05/20/19 Midodrine HCl [ProAmatine] 10 mg PO TID@0700,1100,1600 05/20/19 05/20/19 Nystatin 100,000 Unit/ml Susp 500,000 unit PO QID 05/20/19 05/20/19 [Mycostatin Oral Susp] Phenazopyridine [Pyridium] 200 mg PO ONCE 05/20/19 05/20/19 Potassium Chloride ER [K-Dur 20] 40 meq PO DAILY 05/20/19 05/20/19 cefTRIAXone [Rocephin] 1 gm IVPB ONCE 05/20/19 05/20/19 predniSONE See Taper PO DIRECTED 05/20/19 05/20/19 Previous Rx's Medication Instructions Recorded Acetaminophen Tab [Tylenol] 650 mg PO Q4HR PRN tab 04/17/19 Aspirin 81 mg PO DAILY #30 chew 04/17/19 Pantoprazole [Protonix] 40 mg PO DAILY #30 tablet. 04/17/19 Fludrocortisone [Florinef] 0.1 mg PO DAILY #30 tab 05/16/19 Fluticasone Nasal [place] [Flonase 1 spray EA NOSTRIL DAILY 30 Days 05/16/19 Nasal [place]] #1 bottle Losartan [Cozaar] 12.5 mg PO DAILY #30 tab 05/16/19 Potassium Chloride ER [K-Dur 20] 20 meq PO DAILY 30 Days #30 tab 05/16/19 Allergies Allergy/AdvReac Type Severity Reaction Status Date / Time iodine Allergy Rash/Hives Verified 05/20/19 21:39 Review of Systems ROS Other: All systems not noted in ROS Statement are negative. <Quincy Navarro - Last Filed: 05/21/19 04:35> ROS Other: All systems not noted in ROS Statement are negative. <Yamile Wise - Last Filed: 05/24/19 06:02> ROS Statement: Those systems with pertinent positive or pertinent negative responses have been documented in the HPI. Past Medical History Past Medical History: Coronary Artery Disease (CAD), Cancer, Chest Pain / Angina, Heart Failure, COPD, GERD/Reflux, Hyperlipidemia, Myocardial Infarction ([place]), Osteoarthritis (OA), Pneumonia, Prostate Disorder, Sleep Apnea/CPAP/BIPAP, Thyroid Disorder Additional Past Medical History / Comment(s): BACK PAIN,herniated disc, pinched nerves,emphysema, hemorrhoids,skin cancer, walt cataracts-had sx, thin skin prone to bruises/skin tears. Last Myocardial Infarction Date:: unk History of Any Multi-Drug Resistant Organisms: None Reported Past Surgical History: Coronary Bypass/CABG Additional Past Surgical History / Comment(s): cataracts, 3 vessel cabg, past peg tube since removed." lizbet in penis", hemorrhoids, ?egd. pmh : lap heller myotomy Past Anesthesia/Blood Transfusion Reactions: No Reported Reaction Past Psychological History: No Psychological Hx Reported Smoking Status: Current every day smoker - Past Family History Mother Family Medical History: Cancer Additional Family Medical History / Comment(s): breast cancer Sister(s) Family Medical History: Cancer Additional Family Medical History / Comment(s): colon cancer Father History Unknown: Yes Additional Family Medical History / Comment(s): pt's father when pt was 3 years old. <Quincy Navarro - Last Filed: 05/21/19 04:35> General Exam Limitations: physical limitation General appearance: alert, in no apparent distress Head exam: Present: atraumatic, normocephalic, normal inspection Eye exam: Present: normal appearance, PERRL, EOMI, other (Conjunctival pallor.) Pupils: Present: normal accommodation ENT exam: Present: normal exam, normal oropharynx, mucous membranes moist, TM's normal bilaterally, normal external ear exam Neck exam: Present: normal inspection, full ROM Respiratory exam: Present: rales (Bilateral lung base) Cardiovascular Exam: Present: regular rate, normal rhythm, normal heart sounds GI/Abdominal exam: Present: soft, normal bowel sounds exam: Absent: normal inspection (Lesion on the glans penis.), scrotal swelling Back exam: Present: normal inspection, full ROM Neurological exam: Present: alert, oriented X3 Psychiatric exam: Present: normal affect, normal mood Skin exam: Present: warm, intact, normal color <Quincy Navarro - Last Filed: 05/21/19 04:35> Course Vital Signs 05/20/19 05/20/19 05/20/19 21:19 21:30 21:33 Temperature 100.3 F H Pulse Rate 115 H 114 H Respiratory 36 H 26 H 28 H Rate Blood Pressure 82/49 O2 Sat by Pulse 93 L 92 L Oximetry 05/20/19 05/20/19 05/20/19 21:45 22:30 22:45 Temperature 99.1 F Pulse Rate 120 H 103 H 112 H Respiratory 26 H 22 24 Rate Blood Pressure 81/43 115/65 135/118 O2 Sat by Pulse 91 L 95 97 Oximetry 05/20/19 05/21/19 05/21/19 23:30 00:00 00:31 Temperature Pulse Rate 109 H 110 H 112 H Respiratory 28 H 28 H 28 H Rate Blood Pressure 83/60 95/50 95/47 O2 Sat by Pulse 97 91 L 89 L Oximetry 05/21/19 05/21/19 05/21/19 00:45 00:56 01:22 Temperature 98.3 F 98.3 F Pulse Rate 102 H 109 H Respiratory 24 26 H Rate Blood Pressure 95/59 75/43 O2 Sat by Pulse 91 L 91 L Oximetry 05/21/19 05/21/19 05/21/19 01:32 02:02 02:46 Temperature 97.9 F 98 F Pulse Rate 105 H 105 H 98 Respiratory 22 22 20 Rate Blood Pressure 81/56 96/62 90/45 O2 Sat by Pulse 93 L 95 94 L Oximetry 05/21/19 05/21/19 05/21/19 03:06 03:07 03:33 Temperature 98.7 F 98.7 F Pulse Rate 97 93 93 Respiratory 20 22 20 Rate Blood Pressure 103/37 85/44 85/44 O2 Sat by Pulse 93 L 91 L 91 L Oximetry 05/21/19 05/21/19 05/21/19 03:43 03:58 04:13 Temperature 98.3 F 98.2 F Pulse Rate 100 92 97 Respiratory 24 22 22 Rate Blood Pressure 81/43 90/45 87/51 O2 Sat by Pulse 93 L 92 L 93 L Oximetry 09/06/2905/21/19 05/21/19 04:51 05:05 05:46 Temperature Pulse Rate 92 94 98 Respiratory 20 20 18 Rate Blood Pressure 101/80 113/50 116/62 O2 Sat by Pulse 94 L 95 94 L Oximetry 05/21/19 05/21/19 05/21/19 06:01 06:08 06:18 Temperature 98.4 F 98.4 F 98.1 F Pulse Rate 98 98 98 Respiratory 20 20 20 Rate Blood Pressure 122/79 122/79 125/71 O2 Sat by Pulse 93 L 93 L 93 L Oximetry EKG Findings - EKG Comments: EKG Findings:: Sinus tach with occasional PVC. Ventricular rate 117, HI in terval 1:30, QRS duration 84, QT/QTc 402/560, p-r-t axes 17 9 92 <Quincy Navarro - Last Filed: 05/21/19 04:35> Medical Decision Making - Lab Data Result diagrams: 05/20/19 23:37 05/20/19 21:50 <Quincy Navarro - Last Filed: 05/21/19 04:35> - Lab Data Result diagrams: 05/24/19 04:55 05/24/19 04:55 <Yamile Wise - Last Filed: 05/24/19 06:02> - Medical Decision Making Patient is a 79-year-old male with multiple comorbidities is presenting to emergency Department with chief complaint is of breath. Patient lives at [facility] emergency room and was brought to the ED via EMS and was given albuterol nebulizer treatment in the ambulance. On initial evaluation patient was hypotensive, febrile and had an oxygen saturation of 93. Patient was given fluids. CBC, CMP, UA, blood cultures and lactate were obtained. Patient is a lactate of over 4. Patient has a hemoglobin of 7.6 and is decreased since his last draw. Type and screen obtained. Patient given 2 units of blood. Patient also has a penile ulcer and Urojet was used to alleviate some of his symptoms. Patient will be admitted for further medical management. Dr. Wise also examined the patient and is in agreement with the treatment plan. (Quincy Navarro) I personally saw and evaluated the patient, patient is noted to be hypotensive with elevated lactic acid, and evaluation the patient was quite pale in appearance. Due to homolysis his labs and not resulted however he does have a history of anemia. Distal labs were obtained, transfusion was ordered, patient was moved closer to the resuscitation bay for close monitoring. Patient was kept in the Trendelenburg position. Aggressive fluids were discontinued. After resulted in multiple significant abnormalities including profound leukocytosis with white count of 30, hemoglobin is strep downtrending to 7.4, troponin is elevated likely secondary to the anemia, kidney disease is worsening. Based on his multiple significant abnormalities the patient will be admitted. Patient received 2 units of packed red blood cells in the emergency department with improvement in his vital signs. Lactic acid is downtrending. Mental status is improving. Patient hemodynamically stable for admission to the telemetry floor at this time. (Yamile Wise) - Lab Data Lab Results 05/20/19 05/20/19 05/20/19 Range/Units 21:50 21:50 21:50 Sodium 133 L (137-145) mmol/L Potassium 3.4 L (3.5-5.1) mmol/L Chloride 92 L (98-107) mmol/L Carbon Dioxide 31 H (22-30) mmol/L Anion Gap 10 mmol/L BUN 61 H (9-20) mg/dL Creatinine 2.42 H (0.66-1.25) mg/dL Est GFR (CKD-EPI)AfAm 28 (>60 ml/min/1.73 sqM) Est GFR (CKD-EPI)NonAf 24 (>60 ml/min/1.73 sqM) Glucose 184 H (74-99) mg/dL Lactic Ac Sepsis Rflx Plasma Lactic Acid Kiran 4.8 H* (0.7-2.0) mmol/L Calcium 7.6 L (8.4-10.2) mg/dL Total Bilirubin 1.4 H (0.2-1.3) mg/dL AST 32 (17-59) U/L ALT 20 L (21-72) U/L Alkaline Phosphatase 106 (38-126) U/L Troponin I 0.173 H* (0.000-0.034) ng/mL Total Protein 4.8 L (6.3-8.2) g/dL Albumin 2.4 L (3.5-5.0) g/dL 05/20/19 Range/Units 23:05 Sodium (137-145) mmol/L Potassium (3.5-5.1) mmol/L Chloride (98-107) mmol/L Carbon Dioxide (22-30) mmol/L Anion Gap mmol/L BUN (9-20) mg/dL Creatinine (0.66-1.25) mg/dL Est GFR (CKD-EPI)AfAm (>60 ml/min/1.73 sqM) Est GFR (CKD-EPI)NonAf (>60 ml/min/1.73 sqM) Glucose (74-99) mg/dL Lactic Ac Sepsis Rflx Y Plasma Lactic Acid Kiran (0.7-2.0) mmol/L Calcium (8.4-10.2) mg/dL Total Bilirubin (0.2-1.3) mg/dL AST (17-59) U/L ALT (21-72) U/L Alkaline Phosphatase (38-126) U/L Troponin I (0.000-0.034) ng/mL Total Protein (6.3-8.2) g/dL Albumin (3.5-5.0) g/dL Critical Care Time Critical Care Time: Yes Total Critical Care Time: 45 <Yamile Wise - Last Filed: 05/24/19 06:02> Critical Care Time: Critical Care Time Critical care time was exclusive of separately billable procedures and treating other patients and teaching time. Critical care was necessary to treat or prevent imminent or life-threatening deterioration. Given the critical condition in which the patient arrived, the patient was immediately assessed by myself and the nurse, and cardiac monitoring initiated due to the potential for rapid decompensation of the patient's clinical condition. During the course of the patients stay, I spent a considerable amount of time at the bedside performing serial re-evaluations of the patient's hemodynamic and clinical status because of the recognized potential threat to life or limb in this condition. I then had a chance to review not only all of the available current laboratory and radiographic studies obtained today, but I also reviewed old records available to me at the time. Additionally, any ancillary information available including professor of [employer] records were reviewed. Sequential vital signs were obtained. (Yamile Wise) Disposition Is patient prescribed a controlled substance at d/c from ED?: No Time of Disposition: 04:58 <Quincy Navarro - Last Filed: 05/21/19 04:35> <Yamile Wise P - Last Filed: 05/24/19 06:02> Clinical Impression: Shortness of breath, Anemia, AMANDA (acute kidney injury), NSTEMI (non-ST elevated myocardial infarction), Ulcer of penis, Symptomatic anemia, Pleural effusion, Congestive heart failure, Lactic acidosis, Hypotension, Leukocytosis Disposition: ADMITTED IP TO THIS HOSP Condition: Serious
[2019-05-20 23:55] LABS: Anisocytosis Slight; HCT 23.7 % (39.0-53.0); HGB 7.4 gm/dL (13.0-17.5); MCH 27.7 pg (25.0-35.0); MCHC 31.3 g/dL (31.0-37.0); MCV 88.4 fL (80.0-100.0); Mean Platelet Volume 9.5; RBC 2.68 m/uL (4.30-5.90); RDW 16.9 % (11.5-15.5); WBC 31.3 k/uL (3.8-10.6)
[2019-05-21] MEDS: SODIUM CHLORIDE 0.9% 1,000 ML IV SCH ×3 (00:05→14:11)
[2019-05-21 01:05] LABS: Band Neutrophils % 23 %; Lymphocytes # (M) 1.25 k/uL (1.0-4.8); Monocytes # (M) 0.31 k/uL (0-1.0); Neutrophils % (M) 73 %; Nucleated Red Blood Cells 0 /100 WBC (0-0); Total Cells Counted 200
[2019-05-21 01:08] LABS: Poikilocytosis (M) Present
[2019-05-21 01:13] LABS: Dohle Bodies Present
[2019-05-21 01:14] LABS: Polychromasia Present
[2019-05-21 01:15] LABS: Platelet Count 63 k/uL (150-450); Toxic Vacuolation Present
[2019-05-21] MEDS ORDERED: LIDOCAINE URO-JET JELLY 2% 5 ML KIT URETHRAL ONE (01:25)
[2019-05-21] MEDS ORDERED: ACETAMINOPHEN TAB 325 MG TAB PO PRN (09:39)
[2019-05-21] MEDS ORDERED: FUROSEMIDE 10 MG/ML 4 ML VIAL IV STA (09:40)
[2019-05-21] MEDS ORDERED: HEPARIN SODIUM,PORCINE 5,000 UNIT/ML 1 ML VIAL SQ SCH (10:00)
[2019-05-21] MEDS ORDERED: LEVOFLOXACIN 500MG-D5W PMX 500 MG in DEXTROSE/WATER 1 100ML.BAG IVPB ONE (10:00)
[2019-05-21] MEDS ORDERED: SODIUM CHLORIDE 0.9% 1,000 ML IV ONE (10:23)
--- NOTE | 2019-05-21 10:24 | XR ---
EXAMINATION TYPE: XR chest 1V portable DATE OF EXAM: 05/21/2019 CLINICAL HISTORY: Sepsis, possible pneumonia. TECHNIQUE: Single AP portable upright view of the chest is obtained. COMPARISON: Chest x-ray from one day earlier and older studies. FINDINGS: Osseous structures are demineralized. Overlying sternal wires and mediastinal clips are re demonstrated. Mild cardiomegaly again seen. Chronic parenchymal changes with bibasilar opacities rede monstrated. Upper lungs are clear without pneumothorax. IMPRESSION: Overall stable findings, cardiomegaly and chronic parenchymal changes with mild central vascular congestion and patchy bibasilar acute infiltrate and/or atelectasis and small bilateral ple ural effusions all are thought still present.
[2019-05-21 10:33] LABS: Glucose,Whole Blood 155 mg/dL (75-99)
[2019-05-21] MEDS: PIPERACILLIN-TAZOBACTAM 3.375 GM in SODIUM CHLORIDE 0.9% 100 ML IVPB SCH ×2 (10:34→19:54)
[2019-05-21] MEDS ORDERED: POTASSIUM CHLORIDE ER 20 MEQ TAB.ER PO STA (11:03)
[2019-05-21] MEDS: MIDODRINE 5 MG TAB PO SCH ×2 (11:11→16:35)
[2019-05-21] MEDS: PANTOPRAZOLE 40 MG/10 ML VIAL IV SCH (11:11)
[2019-05-21 11:12] LABS: Anisocytosis Slight; Basophils # (A) 0.3 k/uL (0-0.2); Basophils % (A) 1 %; Eosinophils % (A) 0 %; HCT 27.1 % (39.0-53.0); HGB 8.6 gm/dL (13.0-17.5); Lymphocytes # (A) 0.2 k/uL (1.0-4.8); Lymphocytes % (A) 1 %; MCH 28.4 pg (25.0-35.0); MCHC 31.9 g/dL (31.0-37.0); Mean Platelet Volume 9.9; Monocytes # (A) 0.4 k/uL (0-1.0); Monocytes % (A) 2 %; Neutrophils # (A) 26.1 k/uL (1.3-7.7); Neutrophils % (A) 96 %; RBC 3.04 m/uL (4.30-5.90); RDW 16.3 % (11.5-15.5); WBC 27.1 k/uL (3.8-10.6)
[2019-05-21 11:20] LABS: Albumin 2.3 g/dL (3.5-5.0); Calcium 7.2 mg/dL (8.4-10.2); Potassium 3.2 mmol/L (3.5-5.1); Total Bilirubin 1.5 mg/dL (0.2-1.3); Total Protein 4.8 g/dL (6.3-8.2)
[2019-05-21] MEDS: IPRATROPIUM-ALBUTEROL 3 ML NEB INHALATION SCH ×2 (11:20→19:16)
[2019-05-21 11:23] LABS: Appearance,Urine Cloudy (Clear); Bacteria,Urine Rare /hpf; Bilirubin,Urine Negative (Negative); Blood,Urine Large (Negative); Color,Urine Brown; Glucose,Urine (UA) Negative (Negative); Hyaline Casts,Urine 11 /lpf (0-2); Ketones,Urine Negative (Negative); Leukocyte Esterase,Urine Large (Negative); Mucus,Urine Rare /hpf; Nitrite,Urine Negative (Negative); PH, Urine 5.5 (5.0-8.0); Protein,Urine 1+ (Negative); RBC,Urine 51 /hpf (0-5); Specific Gravity,Urine 1.011 (1.001-1.035); Urobilinogen,Urine <2.0 mg/dL (<2.0); WBC,Urine >182 /hpf (0-5)
[2019-05-21 11:35] LABS: INR 0.9 (<1.2); Partial Thromboplastin Time 28.3 sec (22.0-30.0); Prothrombin Time 10.1 sec (9.0-12.0)
[2019-05-21 11:48] LABS: Platelet Count 42 k/uL (150-450)
[2019-05-21 12:03] LABS: Glucose,Whole Blood 157 mg/dL (75-99)
--- NOTE | 2019-05-21 12:16 | P.CNPUL ---
History of Present Illness Consult date: 05/21/19 Requesting physician: Rosanna Guaman Reason for consult: dyspnea, pneumonia Chief complaint: Sepsis, possible pneumonia and CHF History of present illness: This is a 79-year-old white male patient of Dr. Wallace, with extensive medical history, was recently hospitalized for acute exacerbation of systolic congestive heart failure with an EF of 30-35%, acute hypoxic failure related to CHF, acute on chronic renal failure. Following his discharge on 05/16/2019 patient went to [facility] for rehab. On 05/20/2019 patient was brought into the hospital for evaluation of worsening shortness of breath, fever chills, increased sputum production. Denied any nausea or vomiting, patient also complained of penile pain, and dysuria. Patient does have a history of COPD on home oxygen at 4 L. Other medical history includes CAD with history of bypass grafting, bladder cancer, patient follows with Dr. Calvert from urology, hyperlipidemia, previous myocardial infarction, osteoarthritis, sleep apnea on CPAP therapy, prostate disorder, hypothyroidism, chronic back pain, and previous history of smoking. Chest x-ray was completed showing small bilateral pleural effusions, bibasilar atelectasis and diffuse interstitial and hazy opacities with the possibility of interstitial pneumonia, and fluid overload. Lab work was positive for leukocytosis, white blood cell count is 31.3, hemoglobin is 7.4, patient had 23% bandemia, correlation profile was within normal limits, serum sodium was 133, potassium 3.4, chloride was 92, CO2 is 31, BUN was 61, creatinine is 2.42. Lactic acid was 4.8 patient was given 2 L of IV fluids, this morning his lactic acid is 2.8, troponins were positive at 0.173, and 0.121[place] [address], urinalysis showed large amount of blood, 1+ protein, large amount of leuk trase, rare white blood cell and rare bacteria, doubt underlying urinary tract infection. Influenza screen was negative. Patient was initially admitted to stepdown floor, this morning his febrile, with a temp of 102.2, patient is tachycardic the heart rate up to 120 BPM, blood pressures are marginal, 99/71, and subsequent one was systolic in the 80s. Patient was given additional liter bolus, broad-spectrum antibiotics were started in the form of Zosyn. Blood cultures were sent on admission, we will obtain additional set of blood cultures, urinalysis, sputum culture. Patient is being transferred to the intensive care unit. Review of Systems All systems: negative Constitutional: Reports chills, Reports fever Eyes: denies blurred vision, denies pain Ears, nose, mouth and throat: Denies headache, Denies sore throat Cardiovascular: Denies chest pain, Denies shortness of breath Respiratory: Reports dyspnea, Denies cough Gastrointestinal: Denies abdominal pain, Denies diarrhea, Denies nausea, Denies vomiting Musculoskeletal: Denies myalgias Integumentary: Denies pruritus, Denies rash Neurological: Denies numbness, Denies weakness Psychiatric: Denies anxiety, Denies depression Endocrine: Denies fatigue, Denies weight change Past Medical History Past Medical History: Coronary Artery Disease (CAD), Cancer, Chest Pain / Angina, Heart Failure, COPD, GERD/Reflux, Hyperlipidemia, Myocardial Infarction (RI), Osteoarthritis (OA), Pneumonia, Prostate Disorder, Sleep Apnea/CPAP/BIPAP, Thyroid Disorder Additional Past Medical History / Comment(s): BACK PAIN,herniated disc, pinched nerves,emphysema, hemorrhoids,skin cancer, walt cataracts-had sx, thin skin prone to bruises/skin tears. Last Myocardial Infarction Date:: unk History of Any Multi-Drug Resistant Organisms: None Reported Past Surgical History: Coronary Bypass/CABG Additional Past Surgical History / Comment(s): cataracts, 3 vessel cabg, past peg tube since removed." lizbet in penis", hemorrhoids, ?egd. pmh : lap heller myotomy Past Anesthesia/Blood Transfusion Reactions: No Reported Reaction Smoking Status: Former smoker - Past Family History Mother Family Medical History: Cancer Additional Family Medical History / Comment(s): breast cancer Sister(s) Family Medical History: Cancer Additional Family Medical History / Comment(s): colon cancer Father History Unknown: Yes Additional Family Medical History / Comment(s): pt's father when pt was 3 years old. Medications and Allergies Home Medications Medication Instructions Recorded Confirmed Type Atorvastatin [Lipitor] 20 mg PO HS@199905/09/17 05/20/19 History Isosorbide Mononitrate ER [Imdur] 30 mg PO DAILY 05/09/17 05/20/19 History Levothyroxine Sodium [Synthroid] 112 mcg PO DAILY 05/09/17 05/20/19 History Sertraline [Zoloft] 50 mg PO HS 05/09/17 05/20/19 History Tolterodine ER [Detrol LA] 2 mg PO DAILY 02/20/19 05/20/19 History Ipratropium-Albuterol Nebulize 3 ml INHALATION RT-TID 03/29/19 05/20/19 History [Duoneb 0.5 mg-3 mg/3 ml Soln] Montelukast [Singulair] 10 mg PO HS 03/29/19 05/20/19 History Budesonide-Formot 160-4.5 Mcg 2 puff INHALATION RT-BID 04/08/19 05/20/19 History [Symbicort 160-4.5 Mcg Inhaler] Cranberry Fruit Concentrate [Azo 250 mg PO DAILY 04/08/19 05/20/19 History Cranberry] Acetaminophen Tab [Tylenol] 650 mg PO Q4HR PRN tab 04/17/19 05/20/19 Rx Aspirin 81 mg PO DAILY #30 chew 04/17/19 05/20/19 Rx Pantoprazole [Protonix] 40 mg PO DAILY #30 tablet. 04/17/19 05/20/19 Rx Fludrocortisone [Florinef] 0.1 mg PO DAILY #30 tab 05/16/19 05/20/19 Rx Fluticasone Nasal [place] [Flonase 1 spray EA NOSTRIL DAILY 30 Days 05/16/19 05/20/19 Rx Nasal [place]] #1 bottle Losartan [Cozaar] 12.5 mg PO DAILY #30 tab 05/16/19 05/20/19 Rx Potassium Chloride ER [K-Dur 20] 20 meq PO DAILY 30 Days #30 tab 05/16/19 05/20/19 Rx Amoxic-Pot Clav 875-125Mg 1 tab PO BID@0700,1900 05/20/19 05/20/19 History [Augmentin 875-125] Ensure 1 can PO DAILY 05/20/19 05/20/19 History Fluconazole [Diflucan] 150 mg PO ONCE 05/20/19 05/20/19 History Furosemide [Lasix] 40 mg PO BID 05/20/19 05/20/19 History Midodrine HCl [ProAmatine] 10 mg PO TID@0700,1100,1600 05/20/19 05/20/19 History Nystatin 100,000 Unit/ml Susp 500,000 unit PO QID 05/20/19 05/20/19 History [Mycostatin Oral Susp] Phenazopyridine [Pyridium] 200 mg PO ONCE 05/20/19 05/20/19 History Potassium Chloride ER [K-Dur 20] 40 meq PO DAILY 05/20/19 05/20/19 History cefTRIAXone [Rocephin] 1 gm IVPB ONCE 05/20/19 05/20/19 History predniSONE See Taper PO DIRECTED 05/20/19 05/20/19 History Allergies Allergy/AdvReac Type Severity Reaction Status Date / Time iodine Allergy Rash/Hives Verified 05/20/19 21:39 Physical Exam Vitals: Vital Signs Temp Pulse Pulse Resp BP BP Pulse Ox 05/21/19 11:33 117 H 05/21/19 11:21 112 H 05/21/19 11:00 120 H 23 99/71 91 L 05/21/19 10:30 100 F H 90 30 H 112/73 90 L 05/21/19 09:30 100.9 F H 116 H 20 97/51 91 L 05/21/19 08:15 102.2 F H 125 H 20 103/59 88 L 05/21/19 07:01 99.2 F 05/21/19 06:55 101.3 F H 113 H 18 124/63 91 L 05/21/19 06:48 101.3 F H 113 H 20 124/63 91 L 05/21/19 06:47 20 05/21/19 06:18 98.1 F 98 20 125/71 93 L 05/21/19 06:08 98.4 F 98 20 122/79 93 L 05/21/19 06:01 98.4 F 98 20 122/79 93 L 05/21/19 05:46 98 18 116/62 94 L 05/21/19 05:05 94 20 113/50 95 05/21/19 04:51 92 20 101/80 94 L 05/21/19 04:13 98.2 F 97 22 87/51 93 L 05/21/19 03:58 92 22 90/45 92 L 05/21/19 03:43 98.3 F 100 24 81/43 93 L 05/21/19 03:33 98.7 F 93 20 85/44 91 L 05/21/19 03:07 98.7 F 93 22 85/44 91 L 05/21/19 03:06 97 20 103/37 93 L 05/21/19 02:46 98 20 90/45 94 L 05/21/19 02:02 98 F 105 H 22 96/62 95 05/21/19 01:32 97.9 F 105 H 22 81/56 93 L 05/21/19 01:22 98.3 F 109 H 26 H 75/43 91 L 05/21/19 00:56 98.3 F 05/21/19 00:45 102 H 24 95/59 91 L 05/21/19 00:31 112 H 28 H 95/47 89 L 05/21/19 00:00 110 H 28 H 95/50 91 L 05/20/19 23:30 109 H 28 H 83/60 97 05/20/19 22:45 99.1 F 112 H 24 135/118 97 05/20/19 22:30 103 H 22 115/65 95 05/20/19 21:45 120 H 26 H 81/43 91 L 05/20/19 21:33 28 H 05/20/19 21:30 114 H 26 H 82/49 92 L 05/20/19 21:19 100.3 F H 115 H 36 H 93 L Intake and Output 05/20/19 05/21/19 05/21/19 22:59 06:59 14:59 Intake Total 620 1575 Output Total 400 Balance 620 1175 Intake: Intake, IV Titration 1275 Amount Levofloxacin 500Mg-D5w 100 Pmx 500 mg In Dextrose/ Water 1 100ml.bag @ 100 mls/hr IVPB ONCE ONE Rx#: [id number] Piperacillin-Tazobactam 3 100 .375 gm In Sodium Chloride 0.9% 100 ml @ 25 mls/hr IVPB Q8H [facility] Rx#: [id number] Sodium Chloride 0.9% 1, 75 000 ml @ 75 mls/hr IV . [id number] [facility] Rx#:[id number] Sodium Chloride 0.9% 1, 1000 000 ml @ 999 mls/hr IV . Q1H1M ONE Rx#:[id number] Oral 300 Blood Product 620 Ffp 24 Cpd Unit 0 [id number] Rc As-1 Unit 310 [id number] As-1 Unit 310 [id number] Output: Urine 400 Other: Voiding Method Incontinent Incontinent # Voids 1 Weight 72.575 kg GENERAL EXAM: Somnolent, but easily arousable, 79-year-old white male, currently on 5 L of oxygen with a pulse ox of 90-91%, slightly tachypneic, febr ile and tachycardic and complaining of being mildly short of breath HEAD: Normocephalic/atraumatic. EYES: Normal reaction of pupils, equal size. Conjunctiva pink, sclera white. NOSE: Clear with pink turbinates. THROAT: No erythema or exudates. NECK: No masses, no JVD, no thyroid enlargement, no adenopathy. CHEST: No chest wall deformity. Symmetrical expansion. LUNGS: Equal air entry with diffuse crackles at bilateral lower lobes, no significant rhonchi or wheezing CVS: Regular rate and rhythm, normal S1 and S2, no gallops, no murmurs, no rubs ABDOMEN: Soft, nontender. No hepatosplenomegaly, normal bowel sounds, no guarding or rigidity. EXTREMITIES: No clubbing, no edema, no cyanosis, 2+ pulses and upper and lower extremities. MUSCULOSKELETAL: Muscle strength and tone normal. SPINE: No scoliosis or deformity SKIN: No rashes CENTRAL NERVOUS SYSTEM: Alert and oriented -3. No focal deficits, tone is normal in all 4 extremities. PSYCHIATRIC: Alert and oriented -3. Appropriate affect. Intact judgment and insight. Results - Laboratory Findings CBC and BMP: 05/21/19 10:36 05/21/19 10:36 PT/INR, D-dimer PT 10.1 sec (9.0-12.0) 05/21/19 10:36 INR 0.9 (<1.2) 05/21/19 10:36 Abnormal lab findings: Abnormal Labs 05/20/19 05/20/19 05/20/19 21:50 21:50 21:50 WBC RBC Hgb Hct RDW Plt Count Neutrophils # Neutrophils # (Manual) Lymphocytes # Basophils # Sodium 133 L Potassium 3.4 L Chloride 92 L Carbon Dioxide 31 H BUN 61 H Creatinine 2.42 H Glucose 184 H POC Glucose (mg/dL) Plasma Lactic Acid Kiran 4.8 H* Calcium 7.6 L Total Bilirubin 1.4 H ALT 20 L Alkaline Phosphatase Troponin I 0.173 H* Total Protein 4.8 L Albumin 2.4 L Urine Protein Urine Blood Ur Leukocyte Esterase Urine RBC Urine WBC Clumps Urine Bacteria Hyaline Casts Urine Mucus Crossmatch 05/20/19 05/20/19 05/21/19 23:37 23:59 01:20 WBC 31.3 H RBC 2.68 L Hgb 7.4 L Hct 23.7 L RDW 16.9 H Plt Count 63 L D Neutrophils # Neutrophils # (Manual) 30.00 H Lymphocytes # Basophils # Sodium Potassium Chloride Carbon Dioxide BUN Creatinine Glucose POC Glucose (mg/dL) Plasma Lactic Acid Kiran 4.4 H* Calcium Total Bilirubin ALT Alkaline Phosphatase Troponin I Total Protein Albumin Urine Protein Urine Blood Ur Leukocyte Esterase Urine RBC Urine WBC Clumps Urine Bacteria Hyaline Casts Urine Mucus Crossmatch See Detail 05/21/19 05/21/19 05/21/19 05:32 09:50 10:30 WBC RBC Hgb Hct RDW Plt Count Neutrophils # Neutrophils # (Manual) Lymphocytes # Basophils # Sodium Potassium Chloride Carbon Dioxide BUN Creatinine Glucose POC Glucose (mg/dL) 155 H Plasma Lactic Acid Kiran 2.9 H* 2.8 H* Calcium Total Bilirubin ALT Alkaline Phosphatase Troponin I Total Protein Albumin Urine Protein Urine Blood Ur Leukocyte Esterase Urine RBC Urine WBC Clumps Urine Bacteria Hyaline Casts Urine Mucus Crossmatch 05/21/19 05/21/19 05/21/19 10:34 10:36 10:36 WBC 27.1 H RBC 3.04 L Hgb 8.6 L Hct 27.1 L RDW 16.3 H Plt Count 42 L Neutrophils # 26.1 H Neutrophils # (Manual) Lymphocytes # 0.2 L Basophils # 0.3 H Sodium 134 L Potassium 3.2 L Chloride Carbon Dioxide BUN 62 H Creatinine 1.96 H Glucose 137 H POC Glucose (mg/dL) Plasma Lactic Acid Kiran Calcium 7.2 L Total Bilirubin 1.5 H ALT Alkaline Phosphatase 139 H Troponin I Total Protein 4.8 L Albumin 2.3 L Urine Protein 1+ H Urine Blood Large H Ur Leukocyte Esterase Large H Urine RBC 51 H Urine WBC Clumps Rare H Urine Bacteria Rare H Hyaline Casts 11 H Urine Mucus Rare H Crossmatch 05/21/19 10:36 WBC RBC Hgb Hct RDW Plt Count Neutrophils # Neutrophils # (Manual) Lymphocytes # Basophils # Sodium Potassium Chloride Carbon Dioxide BUN Creatinine Glucose POC Glucose (mg/dL) Plasma Lactic Acid Kiran Calcium Total Bilirubin ALT Alkaline Phosphatase Troponin I 0.121 H* Total Protein Albumin Urine Protein Urine Blood Ur Leukocyte Esterase Urine RBC Urine WBC Clumps Urine Bacteria Hyaline Casts Urine Mucus Crossmatch - Diagnostic Findings Chest x-ray: report reviewed, image reviewed Additional studies: EKG reviewed Assessment and Plan Plan: Assessment: #1. Acute sepsis and the source is under investigation, possibly related to pneumonia #2. Acute on chronic hypoxemic respiratory failure related to the above #3. Lactic acidosis improving with IV hydration #4. Acute kidney injury likely related to ATN #5. Acute exacerbation of chronic congestive heart failure with systolic d ysfunction #6. Elevated troponins rule out non-ST elevated myocardial infarction #7. Recent admission for acute exacerbation of systolic CHF, acute kidney injury #8. History of COPD on chronic oxygen #9. Former smoker #10. History of bladder cancer, patient's TURBT in March 2019 had to be aborted related to hypotension. Follows with Dr. Calvert #11. History of coronary artery disease with previous bypass grafting #12. Hypertension #13. Previous myocardial infarction #14. Ischemic cardiomyopathy with the EF of 30-35% #15. Chronic anemia #16. History of benign prostatic hypertrophy Plan: We'll transfer the patient to the intensive care unit, we'll give additional fluid bolus of 1 L, maintenance IV fluids at a rate of 75 ML per hour. Lactic acid is trending down, patient is still febrile, tachycardic, and marginally hypotensive, we'll start broad-spectrum antibiotics in the form of Zosyn, new set of blood cultures urinalysis has been sent and are pending at this time, nephrology has been consulted. Ultrasound the kidneys is pending. We'll continue patient's maintenance inhaler, Symbicort, Singulair, breathing treatments. Cardiology evaluation is pending, no complaints of chest pain. We'll initiate the sepsis protocol, GI and DVT prophylaxis. We'll trend lactic acidosis, febrile pattern, infectious disease has been consulted. We spoke to the patient about CODE STATUS, and patient wants to be a full code at this time, and is not opposed to life support if need be. I performed a history & physical examination of the patient and discussed their management with my nurse practitioner, Taisha Saldaña. I reviewed the nurse practitioner's note and agree with the documented findings and plan of care. Lung sounds are positive for diminished with rales. The findings and the impression was discussed with the patient. I attest to the documentation by the nurse practitioner. Time with Patient: Greater than 30
--- NOTE | 2019-05-21 12:54 | P.HPIM ---
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 Patient's serum creatinine baseline is around 0.9 went up to 2.42. Seru m sodium is low at 133 secondary to hypovolemic hyponatremia chest x-ray showing bilateral pleural effusions as well with diffuse interstitial infiltrate congestive heart failure as well as pneumonic infiltrate in the left upper posterior lobes. Patient denied dysuria nausea vomiting. Patient was started on Zosyn and Levaquin was added by wireless retail manager. Patient was subsequently transferred to intensive care unit. Patient is barely pro-able to provide any history because of his tight and short of breath was does have orthopnea and denied any significant paroxysmal nocturnal dyspnea. Review of Systems REVIEW OF SYSTEMS: CONSTITUTIONAL: No fever, no malaise, no fatigue. HEENT: No recent visual problems or hearing problems. Denied any sore throat. CARDIOVASCULAR: No orthopnea, PND, no palpitations, no syncope. PULMONARY: no hemoptysis. GASTROINTESTINAL: No diarrhea, no nausea, no vomiting, no abdominal pain. NEUROLOGICAL: No headaches, no weakness, no numbness. HEMATOLOGICAL: Denies any bleeding or petechiae. GENITOURINARY: Denies any burning micturition, frequency, or urgency. MUSCULOSKELETAL/RHEUMATOLOGICAL: Denies any joint pain, swelling, or any muscle pain. ENDOCRINE: Denies any polyuria or polydipsia. The rest of the 14-point review of systems is negative. Past Medical History Past Medical History: Coronary Artery Disease (CAD), Cancer, Chest Pain / Angina, Heart Failure, COPD, GERD/Reflux, Hyperlipidemia, Myocardial Infarction ([place]), Osteoarthritis (OA), Pneumonia, Prostate Disorder, Sleep Apnea/CPAP/BIPAP, Thyroid Disorder Additional Past Medical History / Comment(s): BACK PAIN,herniated disc, pinched nerves,emphysema, hemorrhoids,skin cancer, walt cataracts-had sx, thin skin prone to bruises/skin tears. Last Myocardial Infarction Date:: unk History of Any Multi-Drug Resistant Organisms: None Reported Past Surgical History: Coronary Bypass/CABG Additional Past Surgical History / Comment(s): cataracts, 3 vessel cabg, past peg tube since removed." lizbet in penis", hemorrhoids, ?egd. pmh : lap heller myotomy Past Anesthesia/Blood Transfusion Reactions: No Reported Reaction Smoking Status: Former smoker - Past Family History Mother Family Medical History: Cancer Additional Family Medical History / Comment(s): breast cancer Sister(s) Family Medical History: Cancer Additional Family Medical History / Comment(s): colon cancer Father History Unknown: Yes Additional Family Medical History / Comment(s): pt's father when pt was 3 years old. Medications and Allergies Home Medications Medication Instructions Recorded Confirmed Type Atorvastatin [Lipitor] 20 mg PO HS@199905/09/17 05/20/19 History Isosorbide Mononitrate ER [Imdur] 30 mg PO DAILY 05/09/17 05/20/19 History Levothyroxine Sodium [Synthroid] 112 mcg PO DAILY 05/09/17 05/20/19 History Sertraline [Zoloft] 50 mg PO HS 05/09/17 05/20/19 History Tolterodine ER [Detrol LA] 2 mg PO DAILY 02/20/19 05/20/19 History Ipratropium-Albuterol Nebulize 3 ml INHALATION RT-TID 03/29/19 05/20/19 History [Duoneb 0.5 mg-3 mg/3 ml Soln] Montelukast [Singulair] 10 mg PO HS 03/29/19 05/20/19 History Budesonide-Formot 160-4.5 Mcg 2 puff INHALATION RT-BID 04/08/19 05/20/19 History [Symbicort 160-4.5 Mcg Inhaler] Cranberry Fruit Concentrate [Azo 250 mg PO DAILY 04/08/19 05/20/19 History Cranberry] Acetaminophen Tab [Tylenol] 650 mg PO Q4HR PRN tab 04/17/19 05/20/19 Rx Aspirin 81 mg PO DAILY #30 chew 04/17/19 05/20/19 Rx Pantoprazole [Protonix] 40 mg PO DAILY #30 tablet. 04/17/19 05/20/19 Rx Fludrocortisone [Florinef] 0.1 mg PO DAILY #30 tab 05/16/19 05/20/19 Rx Fluticasone Nasal [place] [Flonase 1 spray EA NOSTRIL DAILY 30 Days 05/16/19 05/20/19 Rx Nasal [place]] #1 bottle Losartan [Cozaar] 12.5 mg PO DAILY #30 tab 05/16/19 05/20/19 Rx Potassium Chloride ER [K-Dur 20] 20 meq PO DAILY 30 Days #30 tab 05/16/19 05/20/19 Rx Amoxic-Pot Clav 875-125Mg 1 tab PO BID@0700,1900 05/20/19 05/20/19 History [Augmentin 875-125] Ensure 1 can PO DAILY 05/20/19 05/20/19 History Fluconazole [Diflucan] 150 mg PO ONCE 05/20/19 05/20/19 History Furosemide [Lasix] 40 mg PO BID 05/20/19 05/20/19 History Midodrine HCl [ProAmatine] 10 mg PO TID@0700,1100,1600 05/20/19 05/20/19 History Nystatin 100,000 Unit/ml Susp 500,000 unit PO QID 05/20/19 05/20/19 History [Mycostatin Oral Susp] Phenazopyridine [Pyridium] 200 mg PO ONCE 05/20/19 05/20/19 History Potassium Chloride ER [K-Dur 20] 40 meq PO DAILY 05/20/19 05/20/19 History cefTRIAXone [Rocephin] 1 gm IVPB ONCE 05/20/19 05/20/19 History predniSONE See Taper PO DIRECTED 05/20/19 05/20/19 History Allergies Allergy/AdvReac Type Severity Reaction Status Date / Time iodine Allergy Rash/Hives Verified 05/20/19 21:39 Physical Exam Vitals: Vital Signs Temp Pulse Pulse Resp BP BP Pulse Ox 05/21/19 12:15 110 H 29 H 97/69 90 L 05/21/19 12:00 101.1 F H 108 H 26 H 106/82 92 L 05/21/19 11:45 116 H 24 103/64 93 L 05/21/19 11:33 117 H 05/21/19 11:30 128 H 23 111/93 96 05/21/19 11:21 112 H 05/21/19 11:15 118 H 26 H 99/83 92 L 05/21/19 11:00 120 H 23 99/71 91 L 05/21/19 10:30 100 F H 90 30 H 112/73 90 L 05/21/19 09:30 100.9 F H 116 H 20 97/51 91 L 05/21/19 08:15 102.2 F H 125 H 20 103/59 88 L 05/21/19 07:01 99.2 F 05/21/19 06:55 101.3 F H 113 H 18 124/63 91 L 05/21/19 06:48 101.3 F H 113 H 20 124/63 91 L 05/21/19 06:47 20 05/21/19 06:18 98.1 F 98 20 125/71 93 L 05/21/19 06:08 98.4 F 98 20 122/79 93 L 05/21/19 06:01 98.4 F 98 20 122/79 93 L 05/21/19 05:46 98 18 116/62 94 L 05/21/19 05:05 94 20 113/50 95 05/21/19 04:51 92 20 101/80 94 L 05/21/19 04:13 98.2 F 97 22 87/51 93 L 05/21/19 03:58 92 22 90/45 92 L 05/21/19 03:43 98.3 F 100 24 81/43 93 L 05/21/19 03:33 98.7 F 93 20 85/44 91 L 05/21/19 03:07 98.7 F 93 22 85/44 91 L 05/21/19 03:06 97 20 103/37 93 L 05/21/19 02:46 98 20 90/45 94 L 05/21/19 02:02 98 F 105 H 22 96/62 95 05/21/19 01:32 97.9 F 105 H 22 81/56 93 L 05/21/19 01:22 98.3 F 109 H 26 H 75/43 91 L 05/21/19 00:56 98.3 F 05/21/19 00:45 102 H 24 95/59 91 L 05/21/19 00:31 112 H 28 H 95/47 89 L 05/21/19 00:00 110 H 28 H 95/50 91 L 05/20/19 23:30 109 H 28 H 83/60 97 05/20/19 22:45 99.1 F 112 H 24 135/118 97 05/20/19 22:30 103 H 22 115/65 95 05/20/19 21:45 120 H 26 H 81/43 91 L 05/20/19 21:33 28 H 05/20/19 21:30 114 H 26 H 82/49 92 L 05/20/19 21:19 100.3 F H 115 H 36 H 93 L Intake and Output 05/20/19 05/21/19 05/21/19 22:59 06:59 14:59 Intake Total 620 1770 Output Total 925 Balance 620 845 Intake: Intake, IV Titration 1350 Amount Levofloxacin 500Mg-D5w 100 Pmx 500 mg In Dextrose/ Water 1 100ml.bag @ 100 mls/hr IVPB ONCE ONE Rx#: [id number] Piperacillin-Tazobactam 3 100 .375 gm In Sodium Chloride 0.9% 100 ml @ 25 mls/hr IVPB Q8H [facility] Rx#: [id number] Sodium Chloride 0.9% 1, 150 000 ml @ 75 mls/hr IV . [id number] [facility] Rx#:[id number] Sodium Chloride 0.9% 1, 1000 000 ml @ 999 mls/hr IV . Q1H1M ONE Rx#:[id number] Oral 420 Blood Product 620 Ffp 24 Cpd Unit 0 [id number] Rc As-1 Unit 310 [id number] Rc As-1 Unit 310 [id number] Output: Urine 925 Other: Voiding Method Incontinent Incontinent # Voids 1 Weight 72.575 kg PHYSICAL EXAMINATION: GENERAL: The patient is alert and oriented x3, quite lethargic. Well developed, well nourished. HEENT: Pupils are round and equally reacting to light. EOMI. No scleral icterus. No conjunctival pallor. Normocephalic, atraumatic. No pharyngeal erythema. No thyromegaly. CARDIOVASCULAR: S1 and S2 present. No murmurs, rubs, or gallops. Does have elevated JVD PULMONARY: Bibasilar crackles are appreciated no wheezing was appreciated. ABDOMEN: Soft, nontender, nondistended, normoactive bowel sounds. No palpable organomegaly. MUSCULOSKELETAL: No joint swelling or deformity. EXTREMITIES: No cyanosis, clubbing, or pedal edema. NEUROLOGICAL: Gross neurological examination did not reveal any focal deficits. SKIN: No rashes. Results CBC & Chem 7: 05/21/19 10:36 05/21/19 10:36 Labs: Abnormal Lab Results - Last 24 Hours (Table) 05/20/19 05/20/19 05/20/19 Range/Units 21:50 21:50 21:50 WBC (3.8-10.6) k/uL RBC (4.30-5.90) m/uL Hgb (13.0-17.5) gm/dL Hct (39.0-53.0) % RDW (11.5-15.5) % Plt Count (150-450) k/uL Neutrophils # (1.3-7.7) k/uL Neutrophils # (Manual) (1.3-7.7) k/uL Lymphocytes # (1.0-4.8) k/uL Basophils # (0-0.2) k/uL Sodium 133 L (137-145) mmol/L Potassium 3.4 L (3.5-5.1) mmol/L Chloride 92 L (98-107) mmol/L Carbon Dioxide 31 H (22-30) mmol/L BUN 61 H (9-20) mg/dL Creatinine 2.42 H (0.66-1.25) mg/dL Glucose 184 H (74-99) mg/dL POC Glucose (mg/dL) (75-99) mg/dL Plasma Lactic Acid Kiran 4.8 H* (0.7-2.0) mmol/L Calcium 7.6 L (8.4-10.2) mg/dL Total Bilirubin 1.4 H (0.2-1.3) mg/dL ALT 20 L (21-72) U/L Alkaline Phosphatase (38-126) U/L Troponin I 0.173 H* (0.000-0.034) ng/mL Total Protein 4.8 L (6.3-8.2) g/dL Albumin 2.4 L (3.5-5.0) g/dL Urine Protein (Negative) Urine Blood (Negative) Ur Leukocyte Esterase (Negative) Urine RBC (0-5) /hpf Urine WBC (0-5) /hpf Urine WBC Clumps (None) /hpf Urine Bacteria (None) /hpf Hyaline Casts (0-2) /lpf Urine Mucus (None) /hpf Crossmatch 05/20/19 05/20/19 05/21/19 Range/Units 23:37 23:59 01:20 WBC 31.3 H (3.8-10.6) k/uL RBC 2.68 L (4.30-5.90) m/uL Hgb 7.4 L (13.0-17.5) gm/dL Hct 23.7 L (39.0-53.0) % RDW 16.9 H (11.5-15.5) % Plt Count 63 L D (150-450) k/uL Neutrophils # (1.3-7.7) k/uL Neutrophils # (Manual) 30.00 H (1.3-7.7) k/uL Lymphocytes # (1.0-4.8) k/uL Basophils # (0-0.2) k/uL Sodium (137-145) mmol/L Potassium (3.5-5.1) mmol/L Chloride (98-107) mmol/L Carbon Dioxide (22-30) mmol/L BUN (9-20) mg/dL Creatinine (0.66-1.25) mg/dL Glucose (74-99) mg/dL POC Glucose (mg/dL) (75-99) mg/dL Plasma Lactic Acid Kiran 4.4 H* (0.7-2.0) mmol/L Calcium (8.4-10.2) mg/dL Total Bilirubin (0.2-1.3) mg/dL ALT (21-72) U/L Alkaline Phosphatase (38-126) U/L Troponin I (0.000-0.034) ng/mL Total Protein (6.3-8.2) g/dL Albumin (3.5-5.0) g/dL Urine Protein (Negative) Urine Blood (Negative) Ur Leukocyte Esterase (Negative) Urine RBC (0-5) /hpf Urine WBC (0-5) /hpf Urine WBC Clumps (None) /hpf Urine Bacteria (None) /hpf Hyaline Casts (0-2) /lpf Urine Mucus (None) /hpf Crossmatch See Detail 05/21/19 05/21/19 05/21/19 Range/Units 05:32 09:50 10:30 WBC (3.8-10.6) k/uL RBC (4.30-5.90) m/uL Hgb (13.0-17.5) gm/dL Hct (39.0-53.0) % RDW (11.5-15.5) % Plt Count (150-450) k/uL Neutrophils # (1.3-7.7) k/uL Neutrophils # (Manual) (1.3-7.7) k/uL Lymphocytes # (1.0-4.8) k/uL Basophils # (0-0.2) k/uL Sodium (137-145) mmol/L Potassium (3.5-5.1) mmol/L Chloride (98-107) mmol/L Carbon Dioxide (22-30) mmol/L BUN (9-20) mg/dL Creatinine (0.66-1.25) mg/dL Glucose (74-99) mg/dL POC Glucose (mg/dL) 155 H (75-99) mg/dL Plasma Lactic Acid Kiran 2.9 H* 2.8 H* (0.7-2.0) mmol/L Calcium (8.4-10.2) mg/dL Total Bilirubin (0.2-1.3) mg/dL ALT (21-72) U/L Alkaline Phosphatase (38-126) U/L Troponin I (0.000-0.034) ng/mL Total Protein (6.3-8.2) g/dL Albumin (3.5-5.0) g/dL Urine Protein (Negative) Urine Blood (Negative) Ur Leukocyte Esterase (Negative) Urine RBC (0-5) /hpf Urine WBC (0-5) /hpf Urine WBC Clumps (None) /hpf Urine Bacteria (None) /hpf Hyaline Casts (0-2) /lpf Urine Mucus (None) /hpf Crossmatch 05/21/19 05/21/19 05/21/19 Range/Units 10:34 10:36 10:36 WBC 27.1 H (3.8-10.6) k/uL RBC 3.04 L (4.30-5.90) m/uL Hgb 8.6 L (13.0-17.5) gm/dL Hct 27.1 L (39.0-53.0) % RDW 16.3 H (11.5-15.5) % Plt Count 42 L (150-450) k/uL Neutrophils # 26.1 H (1.3-7.7) k/uL Neutrophils # (Manual) (1.3-7.7) k/uL Lymphocytes # 0.2 L (1.0-4.8) k/uL Basophils # 0.3 H (0-0.2) k/uL Sodium 134 L (137-145) mmol/L Potassium 3.2 L (3.5-5.1) mmol/L Chloride (98-107) mmol/L Carbon Dioxide (22-30) mmol/L BUN 62 H (9-20) mg/dL Creatinine 1.96 H (0.66-1.25) mg/dL Glucose 137 H (74-99) mg/dL POC Glucose (mg/dL) (75-99) mg/dL Plasma Lactic Acid Kiran (0.7-2.0) mmol/L Calcium 7.2 L (8.4-10.2) mg/dL Total Bilirubin 1.5 H (0.2-1.3) mg/dL ALT (21-72) U/L Alkaline Phosphatase 139 H (38-126) U/L Troponin I (0.000-0.034) ng/mL Total Protein 4.8 L (6.3-8.2) g/dL Albumin 2.3 L (3.5-5.0) g/dL Urine Protein 1+ H (Negative) Urine Blood Large H (Negative) Ur Leukocyte Esterase Large H (Negative) Urine RBC 51 H (0-5) /hpf Urine WBC >182 H (0-5) /hpf Urine WBC Clumps Rare H (None) /hpf Urine Bacteria Rare H (None) /hpf Hyaline Casts 11 H (0-2) /lpf Urine Mucus Rare H (None) /hpf Crossmatch 05/21/19 05/21/19 Range/Units 10:36 12:00 WBC (3.8-10.6) k/uL RBC (4.30-5.90) m/uL Hgb (13.0-17.5) gm/dL Hct (39.0-53.0) % RDW (11.5-15.5) % Plt Count (150-450) k/uL Neutrophils # (1.3-7.7) k/uL Neutrophils # (Manual) (1.3-7.7) k/uL Lymphocytes # (1.0-4.8) k/uL Basophils # (0-0.2) k/uL Sodium (137-145) mmol/L Potassium (3.5-5.1) mmol/L Chloride (98-107) mmol/L Carbon Dioxide (22-30) mmol/L BUN (9-20) mg/dL Creatinine (0.66-1.25) mg/dL Glucose (74-99) mg/dL POC Glucose (mg/dL) 157 H (75-99) mg/dL Plasma Lactic Acid Kiran (0.7-2.0) mmol/L Calcium (8.4-10.2) mg/dL Total Bilirubin (0.2-1.3) mg/dL ALT (21-72) U/L Alkaline Phosphatase (38-126) U/L Troponin I 0.121 H* (0.000-0.034) ng/mL Total Protein (6.3-8.2) g/dL Albumin (3.5-5.0) g/dL Urine Protein (Negative) Urine Blood (Negative) Ur Leukocyte Esterase (Negative) Urine RBC (0-5) /hpf Urine WBC (0-5) /hpf Urine WBC Clumps (None) /hpf Urine Bacteria (None) /hpf Hyaline Casts (0-2) /lpf Urine Mucus (None) /hpf Crossmatch Thrombosis Risk Factor Assmnt - Choose All That Apply Any of the Below Risk Factors Present?: No Other Risk Factors: Yes Each Risk Factor Represents 3 Points: Age 75 years or older Other congenital or acquired thrombophilia - If yes, enter type in comment: No Thrombosis Risk Factor Assessment Total Risk Factor Score: 3 Thrombosis Risk Factor Assessment Level: Moderate Risk Assessment and Plan Plan: Sepsis, septic shock: Possibility of pneumonia as mentioned 1 left lower lobe. Patient will be on broad-spectrum antibiotics as mentioned above levofloxacin and Zosyn. Blood cultures were obtained. -Acute hypoxic respiratory failure secondary to congestive heart failure exacerbation but unfortunately patient is hypotensive and required fluids. Once his sepsis improves patient will may need diuretic therapy at that time will closely monitored in ICU. -Lactic acidosis secondary to sepsis IV fluids as mentioned above -Acute renal failure secondary to prerenal azotemia as well as acute tubular necrosis -Hypovolemic hyponatremia expected to improve with IV fluids -Continue start failure chronic systolic dysfunction ejection fraction of 30-35% with acute exacerbation, patient has ischemic cardiomyopathy -COPD chronic hypercapnic respiratory failure on oxygen at home. -Possibility of bladder cancer bladder cancer, following follows up with urology and a recent TURP which was incomplete and aborted secondary to hypotension -Coronary artery disease with previous CABG patient has recent cardiac catheterization which did not show any atherosclerotic occlusive disease that need intervention. -Hypertension -Hypothyroidism: Continue with levothyroxine -Benign prostatic hypertrophiy. -DVT prophylaxis with subcutaneous heparin twice a day
[2019-05-21] MEDS: ACETAMINOPHEN TAB 325 MG TAB PO PRN ×2 (14:12→23:19)
[2019-05-21] MEDS: NYSTATIN 100,000 UNIT/ML SUSP 500,000 UNIT/5 ML CUP PO SCH ×3 (14:12→21:06)
[2019-05-21 17:08] LABS: Glucose,Whole Blood 151 mg/dL (75-99)
[2019-05-21 17:08] LABS: Glucose,Whole Blood 302 mg/dL (75-99)
[2019-05-21] MEDS ORDERED: HYDROCORTISONE SUCCINATE 100 MG/2 ML VIAL IV STA (17:27)
[2019-05-21] MEDS: NOREPINEPHRINE 4 MG in SODIUM CHLORIDE 0.9% 250 ML IV SCH (17:35)
[2019-05-21] MEDS ORDERED: SALINE NASAL GEL 14.1 GM TUBE TOPICAL PRN (18:36)
[2019-05-21] MEDS: POTASSIUM CHLORIDE ER 20 MEQ TAB.ER PO SCH ×3 (18:52→21:06)
[2019-05-21] MEDS: SYMBICORT 160-4.5 MCG INHALER INHALATION SCH (19:19)
[2019-05-21] MEDS: ATORVASTATIN 20 MG TAB PO SCH (19:54)
[2019-05-21] MEDS: HEPARIN SODIUM,PORCINE 5,000 UNIT/ML 1 ML VIAL SQ SCH (20:01)
[2019-05-21] MEDS: SERTRALINE 50 MG TAB PO SCH (20:01)
[2019-05-21] MEDS: MONTELUKAST 10 MG TAB PO SCH (20:01)
--- NOTE | 2019-05-21 20:16 | CONS ---
CONSULTATION REASON FOR CONSULT: Renal failure. HISTORY OF PRESENT ILLNESS: Patient is an 79-year-old male who was admitted to the hospital with complaints of weakness, shortness of breath. Patient has a history of CHF, cardiomyopathy, EF 30% to 35%. He has been complaining of pain on his penis and has a penile ulcer from a previous condom cath. While patient was on the floor, he became hypotensive and hypoxic and was therefore transferred to the ICU. Lactic acid was elevated at 4.8. Serum creatinine was 2.42 on admission yesterday. Creatinine is now down to 1.96. Patient is receiving fluid bolus. He has received about 3 L. lactic acid is coming down. It is down to 2.8. The patient's blood pressure has been low, as mentioned earlier, with systolic in the 80s. He also has a temperature of 101 degrees Fahrenheit. PAST MEDICAL HISTORY: 1. CHF. 2. Cardiomyopathy. 3. Coronary artery disease. 4. Hyperlipidemia. 5. History of NC. 6. History of pneumonia. 7. Hemorrhoids. 8. Skin cancer. 9. Cataract. 10.Neuropathy. 11.Hypothyroidism. 12.Obstructive sleep apnea. PAST SURGICAL HISTORY: 1. Coronary artery bypass surgery. 2. Penile implant. 3. PEG tube placement and removal. SOCIAL HISTORY: Patient is a former smoker. No history of drug abuse or alcohol abuse. MEDICATIONS: Medications at home prior to admission included: 1. Lipitor. 2. Imdur. 3. Synthroid. 4. Zoloft. 5. Detrol LA. 6. Singulair. 7. Tylenol. 8. Protonix. 9. Florinef. 10.Cozaar. 11.Potassium. 12.Lasix. 13.Diflucan. 14.Midodrine. 15.Prednisone. 16.Pyridium. ALLERGIES: ALLERGIES include IODINE. PHYSICAL EXAMINATION: Patient is currently awake. He is comfortable, not in any acute distress. He is lethargic. Blood pressure this morning when patient was seen was 99/71, heart rate about 100 per minute. He is febrile with temperature of 101 degrees Fahrenheit. EXAMINATION OF THE HEART: S1 and S2. EXAMINATION OF LUNGS: Decreased breath sounds in the bases. ABDOMEN: Soft, non-tender. Examination of lower extremities shows no significant edema. [place] MATE exam shows patient is moving all 4 extremities. It is grossly intact. LABS: Hemoglobin 8.6, sodium 134, potassium 3.2, chloride 98, BUN 62, serum creatinine 1.96, albumin 2.3. UA shows more than 182 WBCs, 1+ protein, large blood. ASSESSMENT: 1. Acute kidney injury secondary to sepsis, hypotension, hypoperfusion, acute tubular necrosis, currently nonoliguric. No nephrotoxic agents on board. Continue with IV fluids. 2. Sepsis from urinary tract infection. 3. Lactic acidosis secondary to sepsis, hypotension, hypoperfusion. 4. Hypokalemia secondary to diuretics. We will replace. 5. Anemia. No active bleeding noted. Status post packed RBCs transfusion. Check stool for occult blood and check iron studies. 6. Hypotension secondary to sepsis. 7. Penile ulcer from previous condom cath. PLAN: Continue IV fluids. Replace potassium. Maintain patient on empiric antibiotics. Check iron studies. Check stool for occult blood. Repeat labs in a.m. Avoid any nephrotoxic agents. Continue to hold off on Cozaar. MMODL / IJN: [id number] /
[2019-05-21 20:48] LABS: Glucose,Whole Blood 190 mg/dL (75-99)
--- NOTE | 2019-05-21 23:31 | P.CONS ---
History of Present Illness - Reason for Consult Consult date: 05/21/19 sepsis Requesting physician: Rosanna Guaman - Chief Complaint shortness of breath and fever 1 day - History of Present Illness patient is 79 year old male who was recently discharged from this facility after bein treated for congestive heart failure and was transferred to medical [facility] for rehabilitation patient has been brought back to the ER yesterday with chief complaints of increasing shortness of breath the patient breathing has been getting worse for about a day or 2, patient also has some cough but not bringing up some significant sputum denies any chest pain, no nausea no vomiting no diarrhea no choking on the food the patient has been complaining of some penile discomfort and some dysuria but no hematuria with the symptoms the patient has been evaluated by the physician on arrival to the area the patient has been hypotensive with a systolic of 82 the patient also ve a fever of F he was tachycardic with a white count of 30,000 patient did have a positive UA and cheaviness suspicion for possible bibasilar atelectasis versus pneumonia he should receive multiple id boluses subsequently has been ated to ICU he was started on zosyn and infectious disease was consulted for further recommendation regarding antibiotic therapy Review of Systems Positive points has been mentioned in HPI rest of the systems are negative Past Medical History Past Medical History: Coronary Artery Disease (CAD), Cancer, Chest Pain / Angina, Heart Failure, COPD, GERD/Reflux, Hyperlipidemia, Myocardial Infarction (PA), Osteoarthritis (OA), Pneumonia, Prostate Disorder, Sleep Apnea/CPAP/BIPAP, Thyroid Disorder Additional Past Medical History / Comment(s): BACK PAIN,herniated disc, pinched nerves,emphysema, hemorrhoids,skin cancer, walt cataracts-had sx, thin skin prone to bruises/skin tears. Last Myocardial Infarction Date:: unk History of Any Multi-Drug Resistant Organisms: None Reported Past Surgical History: Coronary Bypass/CABG Additional Past Surgical History / Comment(s): cataracts, 3 vessel cabg, past peg tube since removed." lizbet in penis", hemorrhoids, ?egd. pmh : lap heller myotomy Past Anesthesia/Blood Transfusion Reactions: No Reported Reaction Smoking Status: Former smoker - Past Family History Mother Family Medical History: Cancer Additional Family Medical History / Comment(s): breast cancer Sister(s) Family Medical History: Cancer Additional Family Medical History / Comment(s): colon cancer Father History Unknown: Yes Additional Family Medical History / Comment(s): pt's father when pt was 3 years old. Medications and Allergies Home Medications Medication Instructions Recorded Confirmed Type Atorvastatin [Lipitor] 20 mg PO HS@199905/09/17 05/20/19 History Isosorbide Mononitrate ER [Imdur] 30 mg PO DAILY 05/09/17 05/20/19 History Levothyroxine Sodium [Synthroid] 112 mcg PO DAILY 05/09/17 05/20/19 History Sertraline [Zoloft] 50 mg PO HS 05/09/17 05/20/19 History Tolterodine ER [Detrol LA] 2 mg PO DAILY 02/20/19 05/20/19 History Ipratropium-Albuterol Nebulize 3 ml INHALATION RT-TID 03/29/19 05/20/19 History [Duoneb 0.5 mg-3 mg/3 ml Soln] Montelukast [Singulair] 10 mg PO HS 03/29/19 05/20/19 History Budesonide-Formot 160-4.5 Mcg 2 puff INHALATION RT-BID 04/08/19 05/20/19 History [Symbicort 160-4.5 Mcg Inhaler] Cranberry Fruit Concentrate [Azo 250 mg PO DAILY 04/08/19 05/20/19 History Cranberry] Acetaminophen Tab [Tylenol] 650 mg PO Q4HR PRN tab 04/17/19 05/20/19 Rx Aspirin 81 mg PO DAILY #30 chew 04/17/19 05/20/19 Rx Pantoprazole [Protonix] 40 mg PO DAILY #30 tablet.dr 04/17/19 05/20/19 Rx Fludrocortisone [Florinef] 0.1 mg PO DAILY #30 tab 05/16/19 05/20/19 Rx Fluticasone Nasal [place] [Flonase 1 spray EA NOSTRIL DAILY 30 Days 05/16/19 05/20/19 Rx Nasal [place]] #1 bottle Losartan [Cozaar] 12.5 mg PO DAILY #30 tab 05/16/19 05/20/19 Rx Potassium Chloride ER [K-Dur 20] 20 meq PO DAILY 30 Days #30 tab 05/16/19 05/20/19 Rx Amoxic-Pot Clav 875-125Mg 1 tab PO BID@0700,1900 05/20/19 05/20/19 History [Augmentin 875-125] Ensure 1 can PO DAILY 05/20/19 05/20/19 History Fluconazole [Diflucan] 150 mg PO ONCE 05/20/19 05/20/19 History Furosemide [Lasix] 40 mg PO BID 05/20/19 05/20/19 History Midodrine HCl [ProAmatine] 10 mg PO TID@0700,1100,1600 05/20/19 05/20/19 History Nystatin 100,000 Unit/ml Susp 500,000 unit PO QID 05/20/19 05/20/19 History [Mycostatin Oral Susp] Phenazopyridine [Pyridium] 200 mg PO ONCE 05/20/19 05/20/19 History Potassium Chloride ER [K-Dur 20] 40 meq PO DAILY 05/20/19 05/20/19 History cefTRIAXone [Rocephin] 1 gm IVPB ONCE 05/20/19 05/20/19 History predniSONE See Taper PO DIRECTED 05/20/19 05/20/19 History Allergies Allergy/AdvReac Type Severity Reaction Status Date / Time iodine Allergy Rash/Hives Verified 05/20/19 21:39 Physical Exam Vitals: Vital Signs Temp Pulse Pulse Resp BP BP Pulse Ox 05/21/19 14:00 101.3 F H 115 H 17 93/43 91 L 05/21/19 13:30 111 H 18 81/54 90 L 05/21/19 13:00 116 H 22 92/49 92 L 05/21/19 12:30 108 H 25 H 97/69 91 L 05/21/19 12:15 110 H 29 H 97/69 90 L 05/21/19 12:00 101.1 F H 108 H 26 H 106/82 92 L 05/21/19 11:45 116 H 24 103/64 93 L 05/21/19 11:33 117 H 05/21/19 11:30 128 H 23 111/93 96 05/21/19 11:21 112 H 05/21/19 11:15 118 H 26 H 99/83 92 L 05/21/19 11:00 120 H 23 99/71 91 L 05/21/19 10:30 100 F H 90 30 H 112/73 90 L 05/21/19 09:30 100.9 F H 116 H 20 97/51 91 L 05/21/19 08:15 102.2 F H 125 H 20 103/59 88 L 05/21/19 07:01 99.2 F 05/21/19 06:55 101.3 F H 113 H 18 124/63 91 L 05/21/19 06:48 101.3 F H 113 H 20 124/63 91 L 05/21/19 06:47 20 05/21/19 06:18 98.1 F 98 20 125/71 93 L 05/21/19 06:08 98.4 F 98 20 122/79 93 L 05/21/19 06:01 98.4 F 98 20 122/79 93 L 05/21/19 05:46 98 18 116/62 94 L 05/21/19 05:05 94 20 113/50 95 05/21/19 04:51 92 20 101/80 94 L 05/21/19 04:13 98.2 F 97 22 87/51 93 L 05/21/19 03:58 92 22 90/45 92 L 05/21/19 03:43 98.3 F 100 24 81/43 93 L 05/21/19 03:33 98.7 F 93 20 85/44 91 L 05/21/19 03:07 98.7 F 93 22 85/44 91 L 05/21/19 03:06 97 20 103/37 93 L 05/21/19 02:46 98 20 90/45 94 L 05/21/19 02:02 98 F 105 H 22 96/62 95 05/21/19 01:32 97.9 F 105 H 22 81/56 93 L 05/21/19 01:22 98.3 F 109 H 26 H 75/43 91 L 05/21/19 00:56 98.3 F 05/21/19 00:45 102 H 24 95/59 91 L 05/21/19 00:31 112 H 28 H 95/47 89 L 05/21/19 00:00 110 H 28 H 95/50 91 L 05/20/19 23:30 109 H 28 H 83/60 97 05/20/19 22:45 99.1 F 112 H 24 135/118 97 05/20/19 22:30 103 H 22 115/65 95 05/20/19 21:45 120 H 26 H 81/43 91 L 05/20/19 21:33 28 H 05/20/19 21:30 114 H 26 H 82/49 92 L 05/20/19 21:19 100.3 F H 115 H 36 H 93 L Intake and Output 05/21/19 05/21/19 05/21/19 06:59 14:59 22:59 Intake Total 620 2020 Output Total 1375 Balance 620 645 Intake: Intake, IV Titration 1500 Amount Levofloxacin 500Mg-D5w 100 Pmx 500 mg In Dextrose/ Water 1 100ml.bag @ 100 mls/hr IVPB ONCE ONE Rx#: [id number] Piperacillin-Tazobactam 3 100 .375 gm In Sodium Chloride 0.9% 100 ml @ 25 mls/hr IVPB Q8H [facility] Rx#: [id number] Sodium Chloride 0.9% 1, 300 000 ml @ 75 mls/hr IV . [id number] [facility] Rx#:[id number] Sodium Chloride 0.9% 1, 1000 000 ml @ 999 mls/hr IV . Q1H1M ONE Rx#:[id number] Oral 520 Blood Product 620 Ffp 24 Cpd Unit 0 [id number] Rc As-1 Unit 310 [id number] Rc As-1 Unit 310 [id number] Output: Urine 1375 Other: Voiding Method Incontinent Indwelling Catheter # Voids 1 GENERAL DESCRIPTION: anteriorly male lying in bed, no distress. No tachypnea or accessory muscle of respiration use. HEENT: Shows Pallor , no scleral icterus. Oral mucous membrane is dry. No pharyngeal erythema or thrush NECK: Trachea central, no thyromegaly. LUNGS: Unlabored breathing. decreased breath sound the bases. No wheeze or crackle. HEART: S1, S2, regular rate and rhythm. No loud murmur ABDOMEN: Soft, no tenderness , guarding or rigidity, no organomegaly EXTREMITIES: No edema of feet. SKIN: No rash, no masses palpable. NEUROLOGICAL: The patient is awake, alert, oriented x3, mood and affect normal. Results CBC & Chem 7: 05/21/19 10:36 05/21/19 22:27 Labs: Abnormal Lab Results - Last 24 Hours (Table) 05/20/19 05/20/19 05/20/19 Range/Units 21:50 21:50 21:50 WBC (3.8-10.6) k/uL RBC (4.30-5.90) m/uL Hgb (13.0-17.5) gm/dL Hct (39.0-53.0) % RDW (11.5-15.5) % Plt Count (150-450) k/uL Neutrophils # (1.3-7.7) k/uL Neutrophils # (Manual) (1.3-7.7) k/uL Lymphocytes # (1.0-4.8) k/uL Basophils # (0-0.2) k/uL Sodium 133 L (137-145) mmol/L Potassium 3.4 L (3.5-5.1) mmol/L Chloride 92 L (98-107) mmol/L Carbon Dioxide 31 H (22-30) mmol/L BUN 61 H (9-20) mg/dL Creatinine 2.42 H (0.66-1.25) mg/dL Glucose 184 H (74-99) mg/dL POC Glucose (mg/dL) (75-99) mg/dL Plasma Lactic Acid Kiran 4.8 H* (0.7-2.0) mmol/L Calcium 7.6 L (8.4-10.2) mg/dL Total Bilirubin 1.4 H (0.2-1.3) mg/dL ALT 20 L (21-72) U/L Alkaline Phosphatase (38-126) U/L Troponin I 0.173 H* (0.000-0.034) ng/mL Total Protein 4.8 L (6.3-8.2) g/dL Albumin 2.4 L (3.5-5.0) g/dL Urine Protein (Negative) Urine Blood (Negative) Ur Leukocyte Esterase (Negative) Urine RBC (0-5) /hpf Urine WBC (0-5) /hpf Urine WBC Clumps (None) /hpf Urine Bacteria (None) /hpf Hyaline Casts (0-2) /lpf Urine Mucus (None) /hpf Crossmatch 05/20/19 05/20/19 05/21/19 Range/Units 23:37 23:59 01:20 WBC 31.3 H (3.8-10.6) k/uL RBC 2.68 L (4.30-5.90) m/uL Hgb 7.4 L (13.0-17.5) gm/dL Hct 23.7 L (39.0-53.0) % RDW 16.9 H (11.5-15.5) % Plt Count 63 L D (150-450) k/uL Neutrophils # (1.3-7.7) k/uL Neutrophils # (Manual) 30.00 H (1.3-7.7) k/uL Lymphocytes # (1.0-4.8) k/uL Basophils # (0-0.2) k/uL Sodium (137-145) mmol/L Potassium (3.5-5.1) mmol/L Chloride (98-107) mmol/L Carbon Dioxide (22-30) mmol/L BUN (9-20) mg/dL Creatinine (0.66-1.25) mg/dL Glucose (74-99) mg/dL POC Glucose (mg/dL) (75-99) mg/dL Plasma Lactic Acid Kiran 4.4 H* (0.7-2.0) mmol/L Calcium (8.4-10.2) mg/dL Total Bilirubin (0.2-1.3) mg/dL ALT (21-72) U/L Alkaline Phosphatase (38-126) U/L Troponin I (0.000-0.034) ng/mL Total Protein (6.3-8.2) g/dL Albumin (3.5-5.0) g/dL Urine Protein (Negative) Urine Blood (Negative) Ur Leukocyte Esterase (Negative) Urine RBC (0-5) /hpf Urine WBC (0-5) /hpf Urine WBC Clumps (None) /hpf Urine Bacteria (None) /hpf Hyaline Casts (0-2) /lpf Urine Mucus (None) /hpf Crossmatch See Detail 05/21/19 05/21/19 05/21/19 Range/Units 05:32 09:50 10:30 WBC (3.8-10.6) k/uL RBC (4.30-5.90) m/uL Hgb (13.0-17.5) gm/dL Hct (39.0-53.0) % RDW (11.5-15.5) % Plt Count (150-450) k/uL Neutrophils # (1.3-7.7) k/uL Neutrophils # (Manual) (1.3-7.7) k/uL Lymphocytes # (1.0-4.8) k/uL Basophils # (0-0.2) k/uL Sodium (137-145) mmol/L Potassium (3.5-5.1) mmol/L Chloride (98-107) mmol/L Carbon Dioxide (22-30) mmol/L BUN (9-20) mg/dL Creatinine (0.66-1.25) mg/dL Glucose (74-99) mg/dL POC Glucose (mg/dL) 155 H (75-99) mg/dL Plasma Lactic Acid Kiran 2.9 H* 2.8 H* (0.7-2.0) mmol/L Calcium (8.4-10.2) mg/dL Total Bilirubin (0.2-1.3) mg/dL ALT (21-72) U/L Alkaline Phosphatase (38-126) U/L Troponin I (0.000-0.034) ng/mL Total Protein (6.3-8.2) g/dL Albumin (3.5-5.0) g/dL Urine Protein (Negative) Urine Blood (Negative) Ur Leukocyte Esterase (Negative) Urine RBC (0-5) /hpf Urine WBC (0-5) /hpf Urine WBC Clumps (None) /hpf Urine Bacteria (None) /hpf Hyaline Casts (0-2) /lpf Urine Mucus (None) /hpf Crossmatch 05/21/19 05/21/19 05/21/19 Range/Units 10:34 10:36 10:36 WBC 27.1 H (3.8-10.6) k/uL RBC 3.04 L (4.30-5.90) m/uL Hgb 8.6 L (13.0-17.5) gm/dL Hct 27.1 L (39.0-53.0) % RDW 16.3 H (11.5-15.5) % Plt Count 42 L (150-450) k/uL Neutrophils # 26.1 H (1.3-7.7) k/uL Neutrophils # (Manual) (1.3-7.7) k/uL Lymphocytes # 0.2 L (1.0-4.8) k/uL Basophils # 0.3 H (0-0.2) k/uL Sodium 134 L (137-145) mmol/L Potassium 3.2 L (3.5-5.1) mmol/L Chloride (98-107) mmol/L Carbon Dioxide (22-30) mmol/L BUN 62 H (9-20) mg/dL Creatinine 1.96 H (0.66-1.25) mg/dL Glucose 137 H (74-99) mg/dL POC Glucose (mg/dL) (75-99) mg/dL Plasma Lactic Acid Kiran (0.7-2.0) mmol/L Calcium 7.2 L (8.4-10.2) mg/dL Total Bilirubin 1.5 H (0.2-1.3) mg/dL ALT (21-72) U/L Alkaline Phosphatase 139 H (38-126) U/L Troponin I (0.000-0.034) ng/mL Total Protein 4.8 L (6.3-8.2) g/dL Albumin 2.3 L (3.5-5.0) g/dL Urine Protein 1+ H (Negative) Urine Blood Large H (Negative) Ur Leukocyte Esterase Large H (Negative) Urine RBC 51 H (0-5) /hpf Urine WBC >182 H (0-5) /hpf Urine WBC Clumps Rare H (None) /hpf Urine Bacteria Rare H (None) /hpf Hyaline Casts 11 H (0-2) /lpf Urine Mucus Rare H (None) /hpf Crossmatch 05/21/19 05/21/19 05/21/19 Range/Units 10:36 12:00 15:28 WBC (3.8-10.6) k/uL RBC (4.30-5.90) m/uL Hgb (13.0-17.5) gm/dL Hct (39.0-53.0) % RDW (11.5-15.5) % Plt Count (150-450) k/uL Neutrophils # (1.3-7.7) k/uL Neutrophils # (Manual) (1.3-7.7) k/uL Lymphocytes # (1.0-4.8) k/uL Basophils # (0-0.2) k/uL Sodium (137-145) mmol/L Potassium (3.5-5.1) mmol/L Chloride (98-107) mmol/L Carbon Dioxide (22-30) mmol/L BUN (9-20) mg/dL Creatinine (0.66-1.25) mg/dL Glucose (74-99) mg/dL POC Glucose (mg/dL) 157 H (75-99) mg/dL Plasma Lactic Acid Kiran (0.7-2.0) mmol/L Calcium (8.4-10.2) mg/dL Total Bilirubin (0.2-1.3) mg/dL ALT (21-72) U/L Alkaline Phosphatase (38-126) U/L Troponin I 0.121 H* 0.095 H* (0.000-0.034) ng/mL Total Protein (6.3-8.2) g/dL Albumin (3.5-5.0) g/dL Urine Protein (Negative) Urine Blood (Negative) Ur Leukocyte Esterase (Negative) Urine RBC (0-5) /hpf Urine WBC (0-5) /hpf Urine WBC Clumps (None) /hpf Urine Bacteria (None) /hpf Hyaline Casts (0-2) /lpf Urine Mucus (None) /hpf Crossmatch Microbiology - Last 24 Hours (Table) 05/21/19 10:34 Urine Culture - Preliminary Urine,Clean Catch Assessment and Plan Assessment: 1-patient is being admitted to the hospital th sepsis in this patient who did have a fever hypotension tachycardia and elevated white count source is likely a combination of pneumonia as well as a urinary tract infection in this patient who was recently admitted to the hospital and will need to cover for resistant gram-negative surges Pseudomonas to be the likely pathogen 2-cranial insufficiency and risk of nephrotoxicity (1) Sepsis Current Visit: Yes Status: Acute Code(s): A41.9 - SEPSIS, UNSPECIFIED ORGANISM SNOMED Code(s): 46029240 (2) Urinary tract infection Current Visit: Yes Status: Acute Code(s): N39.0 - URINARY TRACT INFECTION, SITE NOT SPECIFIED SNOMED Code(s): 98846295 (3) Pneumonia Current Visit: Yes Status: Acute Code(s): J18.9 - PNEUMONIA, UNSPECIFIED ORGANISM SNOMED Code(s): 434103351 Plan: 1-we will try to obtain sputum for Gram stain and culture 2-Zosyn 3.375 g every 8 hours 3-gentle IV fluid we will follow on clinical condition and culture to further adjust medication if needed Thank you for this consultation will follow this patient along with you Time with Patient: Greater than 30
[2019-05-22] MEDS ORDERED: Potassium Replacement Protocol 1 EACH MISC MISCELLANE PRN (00:36)
[2019-05-22] MEDS: POTASSIUM CHLORIDE ER 20 MEQ TAB.ER PO SCH ×4 (00:44→07:16)
[2019-05-22] MEDS: SODIUM CHLORIDE 0.9% 1,000 ML IV SCH (00:45)
[2019-05-22 01:28] LABS: Iron Saturation 0.52 (15.00-50.00); Iron(FE) <2 ug/dL (65-175); Total Iron Binding Capacity 193 ug/dL (228-460)
[2019-05-22] MEDS: traMADol 50 MG TAB PO PRN ×4 (02:14→23:53)
[2019-05-22] MEDS: PIPERACILLIN-TAZOBACTAM 3.375 GM in SODIUM CHLORIDE 0.9% 100 ML IVPB SCH (03:55)
[2019-05-22] MEDS: ACETAMINOPHEN TAB 325 MG TAB PO PRN ×3 (04:45→21:33)
[2019-05-22 05:07] LABS: Anisocytosis Slight; Basophils # (A) 0.3 k/uL (0-0.2); Basophils % (A) 1 %; Eosinophils % (A) 0 %; HCT 28.1 % (39.0-53.0); HGB 8.6 gm/dL (13.0-17.5); Lymphocytes # (A) 0.3 k/uL (1.0-4.8); Lymphocytes % (A) 1 %; MCH 27.7 pg (25.0-35.0); MCHC 30.6 g/dL (31.0-37.0); MCV 90.4 fL (80.0-100.0); Mean Platelet Volume 10.1; Monocytes # (A) 0.4 k/uL (0-1.0); Monocytes % (A) 2 %; Neutrophils # (A) 22.6 k/uL (1.3-7.7); Neutrophils % (A) 95 %; RBC 3.11 m/uL (4.30-5.90); RDW 16.2 % (11.5-15.5); WBC 23.8 k/uL (3.8-10.6)
[2019-05-22 05:08] LABS: Platelet Count 33 k/uL (150-450)
[2019-05-22 05:27] LABS: Calcium 7.6 mg/dL (8.4-10.2); Potassium 3.5 mmol/L (3.5-5.1)
[2019-05-22] MEDS: LEVOTHYROXINE 112 MCG TAB PO SCH (05:39)
[2019-05-22] MEDS: MIDODRINE 5 MG TAB PO SCH ×3 (07:16→16:15)
[2019-05-22] MEDS: IPRATROPIUM-ALBUTEROL 3 ML NEB INHALATION SCH ×3 (08:12→19:25)
[2019-05-22] MEDS: SYMBICORT 160-4.5 MCG INHALER INHALATION SCH ×2 (08:12→19:25)
--- NOTE | 2019-05-22 08:26 | XR ---
EXAMINATION TYPE: XR chest 1V portable DATE OF EXAM: 05/22/2019 Comparison: 05/21/2019 Clinical History: 79-year-old male follow-up, ICU management Findings: Median sternotomy wires and post-CABG clips. Heart mildly enlarged. Diffuse interstitial densities pe rsist. Persistent right basilar and retrocardiac densities, increasing on the right. Impression: Correlate for CHF with interstitial pulmonary edema. Slight worsening from prior exam. Small effusion s with adjacent atelectasis and/or consolidation, increasing right greater than left.
[2019-05-22] MEDS: ASPIRIN 81 MG PO SCH (08:57)
[2019-05-22] MEDS: HEPARIN SODIUM,PORCINE 5,000 UNIT/ML 1 ML VIAL SQ SCH ×2 (08:57→20:00)
[2019-05-22] MEDS: PANTOPRAZOLE 40 MG/10 ML VIAL IV SCH (08:57)
[2019-05-22] MEDS: OXYBUTYNIN XL 5 MG TAB.ER.24 PO SCH (08:58)
[2019-05-22] MEDS: NYSTATIN 100,000 UNIT/ML SUSP 500,000 UNIT/5 ML CUP PO SCH ×4 (08:58→21:29)
[2019-05-22] MEDS: FLUDROCORTISONE 0.1 MG TAB PO SCH (08:58)
[2019-05-22] MEDS ORDERED: PANTOPRAZOLE 40 MG TABLET PO SCH (09:00)
[2019-05-22] MEDS ORDERED: NON FORMULARY DRUG (Ensure 1 CAN) PO SCH (09:00)
[2019-05-22] MEDS ORDERED: VANCOMYCIN IV PER PHARMACY 1 EACH MISC MISCELLANE PRN (09:52)
[2019-05-22] MEDS ORDERED: FUROSEMIDE 10 MG/ML 4 ML VIAL IV STA (09:53)
[2019-05-22] MEDS ORDERED: CEFEPIME 2 GM in SODIUM CHLORIDE 0.9% 100 ML IVPB SCH (10:15)
[2019-05-22] MEDS: VANCOMYCIN 1,500 MG in SODIUM CHLORIDE 0.9% 250 ML IVPB SCH (10:25)
[2019-05-22] MEDS ORDERED: LEVOFLOXACIN 250MG-D5W PMX 250 MG in DEXTROSE/WATER 1 50ML.BAG IVPB SCH (11:00)
--- NOTE | 2019-05-22 12:05 | P.PN ---
Subjective Progress Note Date: 05/22/19 Principal diagnosis: Sepsis, right lower lobe pneumonia, septic shock. This is a 79-year-old white male patient of Dr. Wallace, with extensive medical history, was recently hospitalized for acute exacerbation of systolic congestive heart failure with an EF of 30-35%, acute hypoxic failure related to CHF, acute on chronic renal failure. Following his discharge on 05/16/2019 patient went to [facility] for rehab. On 05/20/2019 patient was brought into the hospital for evaluation of worsening shortness of breath, fever chills, increased sputum production. Denied any nausea or vomiting, patient also complained of penile pain, and dysuria. Patient does have a history of COPD on home oxygen at 4 L. Other medical history includes CAD with history of bypass grafting, bladder cancer, patient follows with Dr. Calvert from urology, hyperlipidemia, previous myocardial infarction, osteoarthritis, sleep apnea on CPAP therapy, prostate disorder, hypothyroidism, chronic back pain, and previous history of smoking. Chest x-ray was completed showing small bilateral pleural effusions, bibasilar atelectasis and diffuse interstitial and hazy opacities with the possibility of interstitial pneumonia, and fluid overload. Lab work was positive for leukocytosis, white blood cell count is 31.3, hemoglobin is 7.4, patient had 23% bandemia, correlation profile was within normal limits, serum sodium was 133, potassium 3.4, chloride was 92, CO2 is 31, BUN was 61, creatinine is 2.42. Lactic acid was 4.8 patient was given 2 L of IV fluids, this morning his lactic acid is 2.8, troponins were positive at 0.173, [place] 0[place] [address], urinalysis showed large amount of blood, 1+ protein, large amount of leuk trase, rare white blood cell and rare bacteria, doubt underlying urinary tract infection. Influenza screen was negative. Patient was initially admitted to stepdown floor, this morning his febrile, with a temp of 102.2, patient is tachycardic the heart rate up to 120 BPM, blood pressures are marginal, 99/71, and subsequent one was systolic in the 80s. Patient was given additional liter bolus, broad-spectrum antibiotics were started in the form of Zosyn. Blood cultures were sent on admission, we will obtain additional set of blood cultures, urinalysis, sputum culture. Patient is being transferred to the intensive care unit. Reevaluated today on 05/22/2019, patient remains in the ICU, I saw him yesterday, and arrange for the transferred to the ICU. During my evaluation, the patient was noted to be septic, he was transferred to the ICU and received a total of 3 L of fluids, and he was placed on a short. This time on norepinephrine for low blood pressure. Patient was on norepinephrine for few hours, today he is hemodynamically stable, feeling a bit better, chest x-ray clearly shows evidence of right lower lobe pneumonia and interstitial edema bilaterally. Hence the patient will be given a dose of Lasix, and his IV fluids will be cut down to 50 mL per hour. Blood cultures are positive for gram-positive cocci, hence vancomycin was added. In the meantime we will continue Zosyn until the final identification and sensitivity noted from the blood cultures. WBC count today is down to 23.8 hemoglobin is 8.6 electrolytes are normal BUN is 53 creatinine is 1.48, improving compared to 2.42 on admission. Troponin was noted to be 0.069. Potassium is 3.5 be corrected as per protocol. Objective - Vital Signs Vital signs: Vital Signs Temp 97.3 F L 05/22/19 08:00 Pulse 74 05/22/19 11:00 Resp 24 05/22/19 11:00 BP 106/63 05/22/19 11:00 Pulse Ox 91 L 05/22/19 11:00 Intake & Output 05/21/19 05/22/19 05/22/19 18:59 06:59 18:59 Intake Total 2642.6 1318.229 795 Output Total 2225 1620 745 Balance 417.6 -301.771 50 Weight 76.7 kg Intake: IV 1025 325 Piperacillin-Tazobactam 3 200 .375 gm In Sodium Chloride 0.9% 100 ml @ 25 mls/hr IVPB Q8H [facility] Rx#: [id number] Sodium Chloride 0.9% 1, 825 325 000 ml @ 50 mls/hr IV . Q20H [facility] Rx#:[id number] Intake, IV Titration 1902.6 43.229 350 Amount Cefepime 2 gm In Sodium 100 Chloride 0.9% 100 ml @ 200 mls/hr IVPB Q12HR [facility] Rx#:[id number] Levofloxacin 500Mg-D5w 100 Pmx 500 mg In Dextrose/ Water 1 100ml.bag @ 100 mls/hr IVPB ONCE ONE Rx#: [id number] Norepinephrine 4 mg In 27.6 43.229 Sodium Chloride 0.9% 250 ml @ 0.05 MCG/KG/MIN 13. 826 mls/hr IV [id number] [facility] Rx#:[id number] Piperacillin-Tazobactam 3 100 .375 gm In Sodium Chloride 0.9% 100 ml @ 25 mls/hr IVPB Q8H [facility] Rx#: [id number] Sodium Chloride 0.9% 1, 675 000 ml @ 50 mls/hr IV . Q20H [facility] Rx#:[id number] Sodium Chloride 0.9% 1, 1000 000 ml @ 999 mls/hr IV . Q1H1M ONE Rx#:[id number] Vancomycin 1,500 mg In 250 Sodium Chloride 0.9% 250 ml @ 125 mls/hr IVPB Q18H [facility] Rx#:[id number] Oral 740 250 120 Output: Urine 2225 1620 745 Other: Voiding Method Indwelling Catheter Indwelling Catheter # Voids 1 - Exam Physical Exam: Revealed 79-year-old white male in no distress, on few liters nasal cannula. Head: Atraumatic, normocephalic. HEENT:[Neck is supple.] [No neck masses.] [No thyromegaly.] [No JVD.] PERRLA, EOMI, dry mucous membranes, no thrush. Chest: [Symmetrical chest expansion, crackles at the bases, some rhonchi no wheezes.] Cardiac Exam: [Normal S1 and S2, no S3 gallop, 2/6 systolic murmur thought the precordium. Abdomen: [Soft, nontender, no megaly, no rebound, no guarding, normal bowel sounds.] Extremities: [No clubbing, 1+ bipedal edema, no cyanosis.] Neurological Exam: [No focal neurologic deficit.] Alert and oriented 3. Psychiatric: Normal mood, affect and normal mental status examination. Skin: No rashes. Musculoskeletal: Muscle strength and tone are normal. Lymphatics: No lymphadenopathy. - Labs CBC & Chem 7: 05/22/19 04:47 05/22/19 04:47 Labs: Abnormal Lab Results - Last 24 Hours (Table) 05/21/19 05/21/19 05/21/19 Range/Units 10:34 12:00 15:28 WBC (3.8-10.6) k/uL RBC (4.30-5.90) m/uL Hgb (13.0-17.5) gm/dL Hct (39.0-53.0) % MCHC (31.0-37.0) g/dL RDW (11.5-15.5) % Plt Count (150-450) k/uL Neutrophils # (1.3-7.7) k/uL Lymphocytes # (1.0-4.8) k/uL Basophils # (0-0.2) k/uL Sodium (137-145) mmol/L Potassium (3.5-5.1) mmol/L BUN (9-20) mg/dL Creatinine (0.66-1.25) mg/dL Glucose (74-99) mg/dL POC Glucose (mg/dL) 157 H (75-99) mg/dL Calcium (8.4-10.2) mg/dL Iron (65-175) ug/dL TIBC (228-460) ug/dL Iron Saturation (15.00-50.00) Troponin I 0.095 H* (0.000-0.034) ng/mL Urine WBC >182 H (0-5) /hpf 05/21/19 05/21/19 05/21/19 Range/Units 15:28 16:51 16:53 WBC (3.8-10.6) k/uL RBC (4.30-5.90) m/uL Hgb (13.0-17.5) gm/dL Hct (39.0-53.0) % MCHC (31.0-37.0) g/dL RDW (11.5-15.5) % Plt Count (150-450) k/uL Neutrophils # (1.3-7.7) k/uL Lymphocytes # (1.0-4.8) k/uL Basophils # (0-0.2) k/uL Sodium (137-145) mmol/L Potassium (3.5-5.1) mmol/L BUN (9-20) mg/dL Creatinine (0.66-1.25) mg/dL Glucose (74-99) mg/dL POC Glucose (mg/dL) 302 H 151 H (75-99) mg/dL Calcium (8.4-10.2) mg/dL Iron <2 L (65-175) ug/dL TIBC 193 L (228-460) ug/dL Iron Saturation 0.52 L (15.00-50.00) Troponin I (0.000-0.034) ng/mL Urine WBC (0-5) /hpf 05/21/19 05/21/19 05/21/19 Range/Units 17:29 20:44 22:27 WBC (3.8-10.6) k/uL RBC (4.30-5.90) m/uL Hgb (13.0-17.5) gm/dL Hct (39.0-53.0) % MCHC (31.0-37.0) g/dL RDW (11.5-15.5) % Plt Count (150-450) k/uL Neutrophils # (1.3-7.7) k/uL Lymphocytes # (1.0-4.8) k/uL Basophils # (0-0.2) k/uL Sodium (137-145) mmol/L Potassium 2.8 L (3.5-5.1) mmol/L BUN (9-20) mg/dL Creatinine (0.66-1.25) mg/dL Glucose (74-99) mg/dL POC Glucose (mg/dL) 190 H (75-99) mg/dL Calcium (8.4-10.2) mg/dL Iron (65-175) ug/dL TIBC (228-460) ug/dL Iron Saturation (15.00-50.00) Troponin I 0.069 H* (0.000-0.034) ng/mL Urine WBC (0-5) /hpf 05/21/19 05/22/19 05/22/19 Range/Units 22:27 04:47 04:47 WBC 23.8 H (3.8-10.6) k/uL RBC 3.11 L (4.30-5.90) m/uL Hgb 8.6 L (13.0-17.5) gm/dL Hct 28.1 L (39.0-53.0) % MCHC 30.6 L (31.0-37.0) g/dL RDW 16.2 H (11.5-15.5) % Plt Count 33 L (150-450) k/uL Neutrophils # 22.6 H (1.3-7.7) k/uL Lymphocytes # 0.3 L (1.0-4.8) k/uL Basophils # 0.3 H (0-0.2) k/uL Sodium 136 L (137-145) mmol/L Potassium 3.0 L (3.5-5.1) mmol/L BUN 53 H (9-20) mg/dL Creatinine 1.48 H (0.66-1.25) mg/dL Glucose 163 H (74-99) mg/dL POC Glucose (mg/dL) (75-99) mg/dL Calcium 7.6 L (8.4-10.2) mg/dL Iron (65-175) ug/dL TIBC (228-460) ug/dL Iron Saturation (15.00-50.00) Troponin I (0.000-0.034) ng/mL Urine WBC (0-5) /hpf Microbiology - Last 24 Hours (Table) 05/21/19 10:36 Blood Culture Gram Stain - Preliminary Blood Blood Culture - Preliminary Presumptive Staph aureus 05/20/19 23:37 Blood Culture - Preliminary Blood No Growth after 24 hours 05/21/19 10:36 Blood Culture - Final Blood 05/21/19 10:34 Urine Culture - Preliminary Urine,Clean Catch Assessment and Plan Assessment: #1. Acute septic shock secondary to right lower lobe pneumonia, this is likely healthcare acquired pneumonia and gram-positive bacteremia. #2. Acute on chronic hypoxemic respiratory failure related to the above #3. Lactic acidosis improving with IV hydration #4. Acute kidney injury likely related to ATN, improving with hydration and with improvement of blood pressure. #5. Acute exacerbation of chronic congestive heart failure with systolic dysfunction, known to have very poor ejection fraction. 30-35% #6. Elevated troponins rule out non-ST elevated myocardial infarction #7. Recent admission for acute exacerbation of systolic CHF, acute kidney injury #8. History of COPD on chronic oxygen #9. Former smoker #10. History of bladder cancer, patient's TURBT in March 2019 had to be aborted related to hypotension. Follows with Dr. Calvert #11. History of coronary artery disease with previous bypass grafting #12. Hypertension #13. Previous myocardial infarction #14. Ischemic cardiomyopathy with the EF of 30-35% #15. Chronic anemia #16. History of benign prostatic hypertrophy Recommendation: Continue to monitor the patient in the ICU, patient will be given a dose of Lasix today, I will cut down the IV fluid to 50 mL per hour, we continue antibiotics including Zosyn and vancomycin, pharmacy to dose vancomycin. Continue GI and DVT prophylaxis, continue bronchodilators, continue to monitor electrolytes and renal profile on a daily basis. Prognosis remains guarded, we'll continue to follow closely. Time with Patient: Less than 30
--- NOTE | 2019-05-22 13:16 | P.PN ---
Subjective 79-year-old pleasant gentleman came in with the shortness of breath and is being treated for sepsis possible source being pneumonia. Patient to sepsis improved significantly patient is off Levophed patient does have significant pulmonary edema from IV fluids and patient does have congestive heart failure ejection fraction at that to 35% received IV Lasix and this can you IV fluids will closely monitor his blood pressure patient normally has low blood pressure presently on Zosyn at this time. Being followed by multiple consultants including infectious disease supervisor assembling. Constitutional: Remains fatigued Cardio vascular: denied any chest pain, palpitations Gastrointestinal denied any nausea vomiting Pulmonary: Does have shortness of breath Neurologic denied any new focal deficits All inpatient medications were reviewed and appropriate changes in these medications as dictated in the interval history and assessment and plan. Objective - Vital Signs Vital signs: Vital Signs Temp 97.3 F L 05/22/19 12:00 Pulse 74 05/22/19 12:00 Resp 27 H 05/22/19 12:00 BP 99/62 05/22/19 12:00 Pulse Ox 94 L 05/22/19 12:00 Intake & Output 05/21/19 05/22/19 05/22/19 18:59 06:59 18:59 Intake Total 2642.6 2768.022 5333 Output Total 2225 1620 1220 Balance 417.6 -301.771 -125 Weight 76.7 kg Intake: IV 1025 385 Piperacillin-Tazobactam 3 200 .375 gm In Sodium Chloride 0.9% 100 ml @ 25 mls/hr IVPB Q8H [facility] Rx#: [id number] Sodium Chloride 0.9% 1, 825 385 000 ml @ 50 mls/hr IV . Q20H [facility] Rx#:[id number] Intake, IV Titration 1902.6 43.229 350 Amount Cefepime 2 gm In Sodium 100 Chloride 0.9% 100 ml @ 200 mls/hr IVPB Q12HR [facility] Rx#:[id number] Levofloxacin 500Mg-D5w 100 Pmx 500 mg In Dextrose/ Water 1 100ml.bag @ 100 mls/hr IVPB ONCE ONE Rx#: [id number] Norepinephrine 4 mg In 27.6 43.229 Sodium Chloride 0.9% 250 ml @ 0.05 MCG/KG/MIN 13. 826 mls/hr IV .[id number] [facility] Rx#:[id number] Piperacillin-Tazobactam 3 100 .375 gm In Sodium Chloride 0.9% 100 ml @ 25 mls/hr IVPB Q8H [facility] Rx#: [id number] Sodium Chloride 0.9% 1, 675 000 ml @ 50 mls/hr IV . Q20H [facility] Rx#:[id number] Sodium Chloride 0.9% 1, 1000 000 ml @ 999 mls/hr IV . Q1H1M [facility] Rx#:[id number] Vancomycin 1,500 mg In 250 Sodium Chloride 0.9% 250 ml @ 125 mls/hr IVPB Q18H [facility] Rx#:[id number] Oral 740 250 360 Output: Urine 2225 1620 1220 Other: Voiding Method Indwelling Catheter Indwelling Catheter # Voids 1 - Exam PHYSICAL EXAMINATION: GENERAL: The patient is alert and oriented x3, still appears fatigued but significantly improved compared to yesterday. Well developed, well nourished. HEENT: Pupils are round and equally reacting to light. EOMI. No scleral icterus. No conjunctival pallor. Normocephalic, atraumatic. No pharyngeal erythema. No thyromegaly. CARDIOVASCULAR: S1 and S2 present. No murmurs, rubs, or gallops. Does have elevated JVD PULMONARY: Bibasilar crackles are appreciated no wheezing was appreciated. ABDOMEN: Soft, nontender, nondistended, normoactive bowel sounds. No palpable organomegaly. MUSCULOSKELETAL: No joint swelling or deformity. EXTREMITIES: No cyanosis, clubbing, or pedal edema. NEUROLOGICAL: Gross neurological examination did not reveal any focal deficits. SKIN: No rashes. - Labs CBC & Chem 7: 05/22/19 04:47 05/22/19 04:47 Labs: Abnormal Lab Results - Last 24 Hours (Table) 05/21/19 05/21/19 05/21/19 Range/Units 15:28 15:28 16:51 WBC (3.8-10.6) k/uL RBC (4.30-5.90) m/uL Hgb (13.0-17.5) gm/dL Hct (39.0-53.0) % MCHC (31.0-37.0) g/dL RDW (11.5-15.5) % Plt Count (150-450) k/uL Neutrophils # (1.3-7.7) k/uL Lymphocytes # (1.0-4.8) k/uL Basophils # (0-0.2) k/uL Sodium (137-145) mmol/L Potassium (3.5-5.1) mmol/L BUN (9-20) mg/dL Creatinine (0.66-1.25) mg/dL Glucose (74-99) mg/dL POC Glucose (mg/dL) 302 H (75-99) mg/dL Calcium (8.4-10.2) mg/dL Iron <2 L (65-175) ug/dL TIBC 193 L (228-460) ug/dL Iron Saturation 0.52 L (15.00-50.00) Troponin I 0.095 H* (0.000-0.034) ng/mL 05/21/19 05/21/19 05/21/19 Range/Units 16:53 17:29 20:44 WBC (3.8-10.6) k/uL RBC (4.30-5.90) m/uL Hgb (13.0-17.5) gm/dL Hct (39.0-53.0) % MCHC (31.0-37.0) g/dL RDW (11.5-15.5) % Plt Count (150-450) k/uL Neutrophils # (1.3-7.7) k/uL Lymphocytes # (1.0-4.8) k/uL Basophils # (0-0.2) k/uL Sodium (137-145) mmol/L Potassium 2.8 L (3.5-5.1) mmol/L BUN (9-20) mg/dL Creatinine (0.66-1.25) mg/dL Glucose (74-99) mg/dL POC Glucose (mg/dL) 151 H 190 H (75-99) mg/dL Calcium (8.4-10.2) mg/dL Iron (65-175) ug/dL TIBC (228-460) ug/dL Iron Saturation (15.00-50.00) Troponin I (0.000-0.034) ng/mL 05/21/19 05/21/19 05/22/19 Range/Units 22:27 22:27 04:47 WBC 23.8 H (3.8-10.6) k/uL RBC 3.11 L (4.30-5.90) m/uL Hgb 8.6 L (13.0-17.5) gm/dL Hct 28.1 L (39.0-53.0) % MCHC 30.6 L (31.0-37.0) g/dL RDW 16.2 H (11.5-15.5) % Plt Count 33 L (150-450) k/uL Neutrophils # 22.6 H (1.3-7.7) k/uL Lymphocytes # 0.3 L (1.0-4.8) k/uL Basophils # 0.3 H (0-0.2) k/uL Sodium (137-145) mmol/L Potassium 3.0 L (3.5-5.1) mmol/L BUN (9-20) mg/dL Creatinine (0.66-1.25) mg/dL Glucose (74-99) mg/dL POC Glucose (mg/dL) (75-99) mg/dL Calcium (8.4-10.2) mg/dL Iron (65-175) ug/dL TIBC (228-460) ug/dL Iron Saturation (15.00-50.00) Troponin I 0.069 H* (0.000-0.034) ng/mL 05/22/19 Range/Units 04:47 WBC (3.8-10.6) k/uL RBC (4.30-5.90) m/uL Hgb (13.0-17.5) gm/dL Hct (39.0-53.0) % MCHC (31.0-37.0) g/dL RDW (11.5-15.5) % Plt Count (150-450) k/uL Neutrophils # (1.3-7.7) k/uL Lymphocytes # (1.0-4.8) k/uL Basophils # (0-0.2) k/uL Sodium 136 L (137-145) mmol/L Potassium (3.5-5.1) mmol/L BUN 53 H (9-20) mg/dL Creatinine 1.48 H (0.66-1.25) mg/dL Glucose 163 H (74-99) mg/dL POC Glucose (mg/dL) (75-99) mg/dL Calcium 7.6 L (8.4-10.2) mg/dL Iron (65-175) ug/dL TIBC (228-460) ug/dL Iron Saturation (15.00-50.00) Troponin I (0.000-0.034) ng/mL Microbiology - Last 24 Hours (Table) 05/21/19 10:36 Blood Culture Gram Stain - Preliminary Blood Blood Culture - Preliminary Presumptive Staph aureus 05/20/19 23:37 Blood Culture - Preliminary Blood No Growth after 24 hours 05/21/19 10:36 Blood Culture - Final Blood 05/21/19 10:34 Urine Culture - Preliminary Urine,Clean Catch Assessment and Plan Plan: Sepsis, septic shock: Possibility of pneumonia as mentioned 1 left lower lobe. Patient will be on broad-spectrum antibiotics as Zosyn. Blood cultures were obtained. So far all the cultures are negative. Patient is off Levophed IV fluids will be discontinued secondary to heart failure exacerbation -Acute hypoxic respiratory failure secondary to congestive heart failure exacerbation but unfortunately patient is hypotensive and required fluids. Patient blood pressures fairly stable at this time off the Lopid because of which IV fluids and discontinued -Lactic acidosis secondary to sepsis IV fluids as mentioned above, improved lactic acidosis -Acute renal failure secondary to prerenal azotemia as well as acute tubular necrosis -Hypovolemic hyponatremia expected to improve with IV fluids -Congestive heart failure chronic systolic dysfunction ejection fraction of 30- 35% with acute exacerbation, patient has ischemic cardiomyopathy -COPD chronic hypercapnic respiratory failure on oxygen at home. -Possibility of bladder cancer bladder cancer, following follows up with urology and a recent TURP which was incomplete and aborted secondary to hypotension -Coronary artery disease with previous CABG patient has recent cardiac catheterization which did not show any atherosclerotic occlusive disease that need intervention. -Hypertension -Hypothyroidism: Continue with levothyroxine -Benign prostatic hypertrophiy. -DVT prophylaxis with subcutaneous heparin twice a day
[2019-05-22] MEDS: NOREPINEPHRINE 4 MG in SODIUM CHLORIDE 0.9% 250 ML IV SCH (14:16)
--- NOTE | 2019-05-22 15:36 | PN ---
PROGRESS NOTE Patient is seen for followup for acute kidney injury. Patient is currently off Levophed. He is slightly better than yesterday. He has had fair amount of urine output. Renal function has improved. Serum creatinine is down to 1.4 from 1.9 yesterday. Patient is awake. PHYSICAL EXAMINATION: This morning blood pressure was 100/40, heart rate 74 per minute. He is afebrile. Examination of the heart S1, S2. Examination of the lungs, bilateral breath sounds are heard. Decreased breath sounds at the bases. Abdomen is soft, nontender. Examination lower extremities shows no significant edema. [employer] exam is grossly intact. LABS: Show sodium 136, potassium 3.5, BUN 53, serum creatinine 1.48. Troponin 0.069, hemoglobin 8.6 g/dL. ASSESSMENT: 1. Acute kidney injury secondary to sepsis, hypotension, hypoperfusion, currently improved. 2. Gram-positive bacteremia, presumptive Staph, maintained on Zosyn, vancomycin has been added, which is okay for now as renal function is improving. 3. Hypokalemia, status post replacement, currently improved. 4. Anemia, status post packed RBCs transfusion. 5. Penile ulcer, currently stable. 6. Lactic acidosis, now improving. PLAN: Continue with antibiotics. Okay to continue with vancomycin for now. Repeat labs in a.m. and continue to replace potassium. Avoid any other nephrotoxic medications. MMODL / IJN: [id number] /
[2019-05-22 17:01] LABS: Glucose,Whole Blood 126 mg/dL (75-99)
--- NOTE | 2019-05-22 17:04 | PN ---
PROGRESS NOTE DATE OF SERVICE: 05/22/2019 REASON FOR FOLLOWUP: Sepsis, source likely pneumonia, possible UTI. INTERVAL HISTORY: The patient is currently afebrile. The patient is off pressor support as of last evening. The patient denies having any chest pain. He has been complaining of shortness of breath. He did have some cough but was not bringing up any sputum. No nausea, no vomiting, no abdominal pain and no diarrhea. PHYSICAL EXAMINATION: Blood pressure 109/71 with a pulse of 71, temperature of 98. He is 95% on 5 L nasal cannula. General description is an elderly male lying in bed in no distress. HEENT examination shows slight pallor. No scleral icterus. Oral mucosa membrane is dry. LUNGS: Unlabored breathing with decreased breath sounds at the base. No wheeze. HEART: S1, S2. Regular rate and rhythm. ABDOMEN: Soft. No tenderness. EXTREMITIES: Some trace edema of the feet. LABS: Hemoglobin 8.6, white count 23.8, BUN of 53, creatinine 1.48. Blood culture with presumptive Staph aureus. Urine has gram-negative bacilli. DIAGNOSTIC IMPRESSION AND PLAN: 1. Patient admitted to hospital with sepsis. Source is likely pneumonia, with blood culture currently showing Staphylococcus aureus with concern for possible methicillin-resistant Staphylococcus ; as the patient has been recently in hospital. Vancomycin has been added. Will monitor his kidney function and vancomycin trough closely. 2. Gram-negative urinary tract infection. Zosyn to be discontinued. Add cefepime to cover for it to decrease risk of nephrotoxicity. Monitor his clinical course closely. MMODL / IJN: [id number] / IRENE
[2019-05-22] MEDS: ATORVASTATIN 20 MG TAB PO SCH (20:00)
[2019-05-22] MEDS: SERTRALINE 50 MG TAB PO SCH (20:00)
[2019-05-22] MEDS: MONTELUKAST 10 MG TAB PO SCH (20:00)
[2019-05-23] MEDS: VANCOMYCIN 1,500 MG in SODIUM CHLORIDE 0.9% 250 ML IVPB SCH (05:30)
[2019-05-23] MEDS: traMADol 50 MG TAB PO PRN (05:48)
[2019-05-23 05:57] LABS: Calcium 7.9 mg/dL (8.4-10.2); Potassium 3.9 mmol/L (3.5-5.1)
[2019-05-23 06:02] LABS: Anisocytosis Slight; Basophils # (A) 0.4 k/uL (0-0.2); Basophils % (A) 1 %; Eosinophils % (A) 0 %; HCT 32.8 % (39.0-53.0); HGB 10.3 gm/dL (13.0-17.5); Hypochromasia Slight; Lymphocytes # (A) 0.5 k/uL (1.0-4.8); Lymphocytes % (A) 2 %; MCH 28.4 pg (25.0-35.0); MCHC 31.5 g/dL (31.0-37.0); MCV 90.2 fL (80.0-100.0); Monocytes # (A) 0.3 k/uL (0-1.0); Monocytes % (A) 1 %; Neutrophils # (A) 23.5 k/uL (1.3-7.7); Neutrophils % (A) 93 %; RBC 3.63 m/uL (4.30-5.90); WBC 25.2 k/uL (3.8-10.6)
[2019-05-23 06:04] LABS: Platelet Count 45 k/uL (150-450)
[2019-05-23] MEDS: MIDODRINE 5 MG TAB PO SCH ×3 (06:07→15:44)
[2019-05-23] MEDS: POTASSIUM CHLORIDE 10 MEQ in WATER FOR INJECTION 1 100ML.BAG IVPB SCH ×4 (06:07→23:45)
[2019-05-23] MEDS: LEVOTHYROXINE 112 MCG TAB PO SCH (06:07)
[2019-05-23] MEDS: NOREPINEPHRINE 4 MG in SODIUM CHLORIDE 0.9% 250 ML IV SCH (06:17)
[2019-05-23 06:24] LABS: Large Platelets Present; Poikilocytosis (M) Present; Target Cells Present
[2019-05-23] MEDS: HEPARIN SODIUM,PORCINE 5,000 UNIT/ML 1 ML VIAL SQ SCH ×2 (08:10→20:57)
[2019-05-23] MEDS: ACETAMINOPHEN TAB 325 MG TAB PO PRN ×2 (08:18→22:26)
[2019-05-23] MEDS: ASPIRIN 81 MG PO SCH (08:18)
[2019-05-23] MEDS: OXYBUTYNIN XL 5 MG TAB.ER.24 PO SCH (08:19)
[2019-05-23] MEDS: NYSTATIN 100,000 UNIT/ML SUSP 500,000 UNIT/5 ML CUP PO SCH ×4 (08:19→20:52)
[2019-05-23] MEDS: FLUDROCORTISONE 0.1 MG TAB PO SCH (08:19)
[2019-05-23] MEDS: PANTOPRAZOLE 40 MG/10 ML VIAL IV SCH (08:20)
[2019-05-23] MEDS ORDERED: FUROSEMIDE 10 MG/ML 4 ML VIAL IV STA (08:32)
--- NOTE | 2019-05-23 08:35 | XR ---
EXAMINATION TYPE: XR chest 1V portable DATE OF EXAM: 05/23/2019 HISTORY: Shortness of breath. COMPARISON: 05/22/2019 TECHNIQUE: Single view of the chest is submitted. FINDINGS: Findings felt to reflect improving congestive failure. Persistent patchy infiltrate right lower lobe. Persistent small pleural effusions right greater than left. The heart is stable. Hilar and mediastinal structures are within normal limits. Degenerative changes are seen of the dorsal spine. IMPRESSION: 1. Findings felt to reflect improving congestive failure. Persistent patchy infiltrate right lower l obe. Persistent small pleural effusions right greater than left.
[2019-05-23] MEDS: IPRATROPIUM-ALBUTEROL 3 ML NEB INHALATION SCH ×3 (08:56→19:48)
[2019-05-23] MEDS: SYMBICORT 160-4.5 MCG INHALER INHALATION SCH ×2 (08:56→19:48)
[2019-05-23] MEDS ORDERED: CEFEPIME 2 GM in SODIUM CHLORIDE 0.9% 100 ML IVPB SCH (09:00)
--- NOTE | 2019-05-23 11:53 | P.PN ---
Subjective Progress Note Date: 05/23/19 Principal diagnosis: Sepsis, right lower lobe pneumonia, septic shock. This is a 79-year-old white male patient of Dr. Wallace, with extensive medical history, was recently hospitalized for acute exacerbation of systolic congestive heart failure with an EF of 30-35%, acute hypoxic failure related to CHF, acute on chronic renal failure. Following his discharge on 05/16/2019 patient went to [facility] for rehab. On 05/20/2019 patient was brought into the hospital for evaluation of worsening shortness of breath, fever chills, increased sputum production. Denied any nausea or vomiting, patient also complained of penile pain, and dysuria. Patient does have a history of COPD on home oxygen at 4 L. Other medical history includes CAD with history of bypass grafting, bladder cancer, patient follows with Dr. Calvert from urology, hyperlipidemia, previous myocardial infarction, osteoarthritis, sleep apnea on CPAP therapy, prostate disorder, hypothyroidism, chronic back pain, and previous history of smoking. Chest x-ray was completed showing small bilateral pleural effusions, bibasilar atelectasis and diffuse interstitial and hazy opacities with the possibility of interstitial pneumonia, and fluid overload. Lab work was positive for leukocytosis, white blood cell count is 31.3, hemoglobin is 7.4, patient had 23% bandemia, correlation profile was within normal limits, serum sodium was 133, potassium 3.4, chloride was 92, CO2 is 31, BUN was 61, creatinine is 2.42. Lactic acid was 4.8 patient was given 2 L of IV fluids, this morning his lactic acid is 2.8, troponins were positive at 0.173, and 0.121. [place] [address], urinalysis showed large amount of blood, 1+ protein, large amount of leuk trase, rare white blood cell and rare bacteria, doubt underlying urinary tract infection. Influenza screen was negative. Patient was initially admitted to stepdown floor, this morning his febrile, with a temp of 102.2, patient is tachycardic the heart rate up to 120 BPM, blood pressures are marginal, 99/71, and subsequent one was systolic in the 80s. Patient was given additional liter bolus, broad-spectrum antibiotics were started in the form of Zosyn. Blood cultures were sent on admission, we will obtain additional set of blood cultures, urinalysis, sputum culture. Patient is being transferred to the intensive care unit. Reevaluated today on 05/22/2019, patient remains in the ICU, I saw him yesterday, and arrange for the transferred to the ICU. During my evaluation, the patient was noted to be septic, he was transferred to the ICU and received a total of 3 L of fluids, and he was placed on a short. This time on norepinephrine for low blood pressure. Patient was on norepinephrine for few hours, today he is hemodynamically stable, feeling a bit better, chest x-ray clearly shows evidence of right lower lobe pneumonia and interstitial edema bilaterally. Hence the patient will be given a dose of Lasix, and his IV fluids will be cut down to 50 mL per hour. Blood cultures are positive for gram-positive cocci, hence vancomycin was added. In the meantime we will continue Zosyn until the final identification and sensitivity noted from the blood cultures. WBC count today is down to 23.8 hemoglobin is 8.6 electrolytes are normal BUN is 53 creatinine is 1.48, improving compared to 2.42 on admission. Troponin was noted to be 0.069. Potassium is 3.5 be corrected as per protocol. Reevaluated today on 05/23/2019, patient remains in the ICU, off norepinephrine, hemodynamically stable, urine output is marginal but improving with diuretics, and he was given a dose of Lasix earlier today. Overall the patient is slightly better compared to his presentation. Chest x-ray continues to showsome component of congestive heart failure, and some component of patchy infiltrates in the right lower lobe. Small pleural effusion is noted right greater than left.WBC count remains elevated at 25.2 hemoglobin is 10.3. Electrodes are normal BUN is improving creatinine is also improving down to 1.16.patient is off norepinephrine today. Troponin level is slightly elevated at 0.069, Objective - Vital Signs Vital signs: Vital Signs Temp 100.5 F H 05/23/19 08:00 Pulse 93 05/23/19 11:00 Resp 17 05/23/19 11:00 BP 77/49 05/23/19 11:00 Pulse Ox 91 L 05/23/19 11:00 Intake & Output 05/22/19 05/23/19 05/23/19 18:59 06:59 18:59 Intake Total 1195 464.570 300 Output Total 2245 930 615 Balance -1050 -465.430 -315 Weight 75.9 kg Intake: IV 485 240 300 0.9 60 240 100 Cefepime 2 gm In Sodium 100 Chloride 0.9% 100 ml @ 200 mls/hr IVPB DAILY [facility] Rx#:[id number] Potassium Chloride 10 meq 100 In Water For Injection 1 100ml.bag @ 100 mls/hr IVPB Q1H [facility] Rx#: [id number] Sodium Chloride 0.9% 1, 425 000 ml @ 50 mls/hr IV . Q20H [facility] Rx#:[id number] Intake, IV Titration 350 124.570 Amount Cefepime 2 gm In Sodium 100 Chloride 0.9% 100 ml @ 200 mls/hr IVPB Q12HR [facility] Rx#:[id number] Norepinephrine 4 mg In 124.570 Sodium Chloride 0.9% 250 ml @ 0.05 MCG/KG/MIN 13. 826 mls/hr IV .[id number] [facility] Rx#:[id number] Vancomycin 1,500 mg In 250 Sodium Chloride 0.9% 250 ml @ 125 mls/hr IVPB Q18H [facility] Rx#:[id number] Oral 360 100 Output: Urine 2245 930 615 Other: Voiding Method Indwelling Catheter Indwelling Catheter Indwelling Catheter # Bowel Movements 1 - Exam Physical Exam: Revealed 79-year-old white male in no distress, on few liters nasal cannula. Head: Atraumatic, normocephalic. HEENT:[Neck is supple.] [No neck masses.] [No thyromegaly.] [No JVD.] PERRLA, EOMI, dry mucous membranes, no thrush. Chest: [Symmetrical chest expansion, crackles at the bases, some rhonchi no wheezes.] Cardiac Exam: [Normal S1 and S2, no S3 gallop, 2/6 systolic murmur thought the precordium. Abdomen: [Soft, nontender, no megaly, no rebound, no guarding, normal bowel sounds.] Extremities: [No clubbing, 1+ bipedal edema, no cyanosis.] Neurological Exam: [No focal neurologic deficit.] Alert and oriented 3. Psychiatric: Normal mood, affect and normal mental status examination. Skin: No rashes. Musculoskeletal: Muscle strength and tone are normal. Lymphatics: No lymphadenopathy. - Labs CBC & Chem 7: 05/23/19 05:27 05/23/19 05:27 Labs: Abnormal Lab Results - Last 24 Hours (Table) 05/22/19 05/23/19 05/23/19 Range/Units 16:59 05:27 05:27 WBC 25.2 H (3.8-10.6) k/uL RBC 3.63 L (4.30-5.90) m/uL Hgb 10.3 L (13.0-17.5) gm/dL Hct 32.8 L (39.0-53.0) % RDW 16.0 H (11.5-15.5) % Plt Count 45 L (150-450) k/uL Neutrophils # 23.5 H (1.3-7.7) k/uL Lymphocytes # 0.5 L (1.0-4.8) k/uL Basophils # 0.4 H (0-0.2) k/uL Sodium 136 L (137-145) mmol/L BUN 51 H (9-20) mg/dL Glucose 122 H (74-99) mg/dL POC Glucose (mg/dL) 126 H (75-99) mg/dL Calcium 7.9 L (8.4-10.2) mg/dL Microbiology - Last 24 Hours (Table) 05/22/19 10:14 Blood Culture Gram Stain - Preliminary Blood 05/21/19 10:34 Urine Culture - Final Urine,Clean Catch Klebsiella pneumoniae 05/20/19 23:30 Blood Culture Gram Stain - Final Blood Blood Culture - Final Staphylococcus aureus 05/21/19 10:36 Blood Culture Gram Stain - Final Blood Blood Culture - Final Staphylococcus aureus 05/22/19 10:14 Blood Culture - Final Blood 05/20/19 23:37 Blood Culture - Final Blood Assessment and Plan Assessment: #1. Acute septic shock secondary to right lower lobe pneumonia, this is likely healthcare acquired pneumonia and gram-positive bacteremia. #2. Acute on chronic hypoxemic respiratory failure related to the above #3. Lactic acidosis improving with IV hydration #4. Acute kidney injury likely related to ATN, improving with hydration and with improvement of blood pressure. #5. Acute exacerbation of chronic congestive heart failure with systolic dysfunction, known to have very poor ejection fraction. 30-35% #6. Elevated troponins rule out non-ST elevated myocardial infarction #7. Recent admission for acute exacerbation of systolic CHF, acute kidney injury #8. History of COPD on chronic oxygen #9. Former smoker #10. History of bladder cancer, patient's TURBT in March 2019 had to be aborted related to hypotension. Follows with Dr. Calvert #11. History of coronary artery disease with previous bypass grafting #12. Hypertension #13. Previous myocardial infarction #14. Ischemic cardiomyopathy with the EF of 30-35% #15. Chronic anemia #16. History of benign prostatic hypertrophy Recommendation: Continue to monitor the patient in the ICU,continue to diurese today. keep IV fluid at KVO we continue antibiotics including Zosyn and vancomycin, pharmacy to dose vancomycin. Continue GI and DVT prophylaxis, continue bronchodilators, continue to monitor electrolytes and renal profile on a daily basis. Prognosis remains guarded, we'll continue to follow closely. Time with Patient: Less than 30
--- NOTE | 2019-05-23 12:36 | P.PN ---
Subjective 79-year-old pleasant gentleman came in with the shortness of breath and is being treated for sepsis possible source being pneumonia. Patient to sepsis improved significantly patient is off Levophed patient does have significant pulmonary edema from IV fluids and patient does have congestive heart failure ejection fraction at that to 35% received IV Lasix and this can you IV fluids will closely monitor his blood pressure patient normally has low blood pressure presently on Zosyn at this time. Being followed by multiple consultants including infectious disease adult literacy teacher. 05/23/2019 Patient wishes daily stable patient is receiving IV Lasix because of his pulmonary edema. Patient does have bacteremia with the staph aureus probably the source of infection rather pneumonia or urinary tract infection patient will be switched to nafcillin discussed with infectious disease. Patient the has blood cultures that are positive second set of blood cultures are positive because of which echocardiogram will be obtained to rule out any endocarditis. Patient had low-grade fever yesterday we'll repeat blood cultures again today. Creatinine improved from 1.48 1.16. Constitutional: Remains fatigued Cardio vascular: denied any chest pain, palpitations Gastrointestinal denied any nausea vomiting Pulmonary: Does have shortness of breath Neurologic denied any new focal deficits All inpatient medications were reviewed and appropriate changes in these medications as dictated in the interval history and assessment and plan. Objective - Vital Signs Vital signs: Vital Signs Temp 100.5 F H 05/23/19 08:00 Pulse 93 05/23/19 11:00 Resp 17 05/23/19 11:00 BP 77/49 05/23/19 11:00 Pulse Ox 91 L 05/23/19 11:00 Intake & Output 05/22/19 05/23/19 05/23/19 18:59 06:59 18:59 Intake Total 1195 464.570 300 Output Total 2245 930 615 Balance -1050 -465.430 -315 Weight 75.9 kg Intake: IV 485 240 300 0.9 60 240 100 Cefepime 2 gm In Sodium 100 Chloride 0.9% 100 ml @ 200 mls/hr IVPB DAILY [facility] Rx#:[id number] Potassium Chloride 10 meq 100 In Water For Injection 1 100ml.bag @ 100 mls/hr IVPB Q1H [facility] Rx#: [id number] Sodium Chloride 0.9% 1, 425 000 ml @ 50 mls/hr IV . Q20H [facility] Rx#:[id number] Intake, IV Titration 350 124.570 Amount Cefepime 2 gm In Sodium 100 Chloride 0.9% 100 ml @ 200 mls/hr IVPB Q12HR [facility] Rx#:[id number] Norepinephrine 4 mg In 124.570 Sodium Chloride 0.9% 250 ml @ 0.05 MCG/KG/MIN 13. 826 mls/hr IV .[id number] [facility] Rx#:[id number] Vancomycin 1,500 mg In 250 Sodium Chloride 0.9% 250 ml @ 125 mls/hr IVPB Q18H [facility] Rx#:[id number] Oral 360 100 Output: Urine 2245 930 615 Other: Voiding Method Indwelling Catheter Indwelling Catheter Indwelling Catheter # Bowel Movements 1 - Exam PHYSICAL EXAMINATION: GENERAL: The patient is alert and oriented x3, still appears fatigued but significantly improved compared to yesterday. Well developed, well nourished. HEENT: Pupils are round and equally reacting to light. EOMI. No scleral icterus. No conjunctival pallor. Normocephalic, atraumatic. No pharyngeal erythema. No thyromegaly. CARDIOVASCULAR: S1 and S2 present. No murmurs, rubs, or gallops. Does have elevated JVD PULMONARY: Bibasilar crackles are appreciated no wheezing was appreciated. ABDOMEN: Soft, nontender, nondistended, normoactive bowel sounds. No palpable organomegaly. MUSCULOSKELETAL: No joint swelling or deformity. EXTREMITIES: No cyanosis, clubbing, or pedal edema. NEUROLOGICAL: Gross neurological examination did not reveal any focal deficits. SKIN: No rashes. - Labs CBC & Chem 7: 05/23/19 05:27 05/23/19 05:27 Labs: Abnormal Lab Results - Last 24 Hours (Table) 05/22/19 05/23/19 05/23/19 Range/Units 16:59 05:27 05:27 WBC 25.2 H (3.8-10.6) k/uL RBC 3.63 L (4.30-5.90) m/uL Hgb 10.3 L (13.0-17.5) gm/dL Hct 32.8 L (39.0-53.0) % RDW 16.0 H (11.5-15.5) % Plt Count 45 L (150-450) k/uL Neutrophils # 23.5 H (1.3-7.7) k/uL Lymphocytes # 0.5 L (1.0-4.8) k/uL Basophils # 0.4 H (0-0.2) k/uL Sodium 136 L (137-145) mmol/L BUN 51 H (9-20) mg/dL Glucose 122 H (74-99) mg/dL POC Glucose (mg/dL) 126 H (75-99) mg/dL Calcium 7.9 L (8.4-10.2) mg/dL Microbiology - Last 24 Hours (Table) 05/22/19 10:14 Blood Culture Gram Stain - Preliminary Blood 05/21/19 10:34 Urine Culture - Final Urine,Clean Catch Klebsiella pneumoniae 05/20/19 23:30 Blood Culture Gram Stain - Final Blood Blood Culture - Final Staphylococcus aureus 05/21/19 10:36 Blood Culture Gram Stain - Final Blood Blood Culture - Final Staphylococcus aureus 05/22/19 10:14 Blood Culture - Final Blood 05/20/19 23:37 Blood Culture - Final Blood Assessment and Plan Plan: Sepsis, septic shock: Osteophyte shock improved patient is still septic and bacteremic with staph aureus possible source being endocarditis which cannot be ruled out echocardiac gram will be obtained, UTI or pneumonia doesn't appear to be source of infection. Patient will be started on nafcillin patient has MSSA actively anemia which is persistent bacteremia. Because of his recurrent recent intercurrent hospitalizations patient may have had bacteremia from IV lines. -Acute hypoxic respiratory failure secondary to congestive heart failure exacerbation, patient is improving with IV Lasix which will be continued -Lactic acidosis secondary to sepsis resolved now patient is presently receiving Lasix -Acute renal failure secondary to prerenal azotemia as well as acute tubular necrosis and a serum creatinine is 1.16 -Hypervolemic hyponatremia secondary to congestive heart failure improving with Lasix. -Congestive heart failure chronic systolic dysfunction ejection fraction of 30- 35% with acute exacerbation, patient has ischemic cardiomyopathy -COPD chronic hypercapnic respiratory failure on oxygen at home. -Possibility of bladder cancer bladder cancer, following follows up with urology and a recent TURP which was incomplete and aborted secondary to hypotension -Coronary artery disease with previous CABG patient has recent cardiac catheterization which did not show any atherosclerotic occlusive disease that need intervention. -Hypertension -Hypothyroidism: Continue with levothyroxine -Benign prostatic hypertrophiy. -DVT prophylaxis with subcutaneous heparin twice a day
[2019-05-23 14:07] LABS: Appearance,Urine Turbid (Clear); Bilirubin,Urine Negative (Negative); Blood,Urine Moderate (Negative); Color,Urine Yellow; Glucose,Urine (UA) Negative (Negative); Ketones,Urine Negative (Negative); Leukocyte Esterase,Urine Large (Negative); Mucus,Urine Rare /hpf; Nitrite,Urine Negative (Negative); Protein,Urine 1+ (Negative); RBC,Urine 87 /hpf (0-5); Specific Gravity,Urine 1.011 (1.001-1.035); Urobilinogen,Urine <2.0 mg/dL (<2.0); WBC,Urine >182 /hpf (0-5)
[2019-05-23] MEDS: NAFCILLIN 2 GM in DEXTROSE 5% IN WATER 100 ML IVPB SCH ×4 (15:45→20:51)
--- NOTE | 2019-05-23 19:38 | PN ---
PROGRESS NOTE DATE OF SERVICE: 05/23/2019 REASON FOR FOLLOWUP: MSSA bacteremia. INTERVAL HISTORY: The patient is currently afebrile. The patient has been breathing comfortably. The patient denies having any chest pain. Still complaining of some shortness of breath. Occasional cough. No nausea, no vomiting, no abdominal pain and no diarrhea. PHYSICAL EXAMINATION: Blood pressure is 97/58 with a pulse of 86, temperature 99.6. He is 93% on 5 L nasal cannula. General description is an elderly male lying in bed in no distress. RESPIRATORY SYSTEM: Unlabored breathing with decreased breath sounds at the base. No wheeze. HEART: S1, S2. Regular rate and rhythm. ABDOMEN: Soft. No tenderness. EXTREMITIES: Some trace edema of the feet. LABS: Hemoglobin is 10.3, white count 25.2 with a BUN of 51, creatinine is 1.16. Blood culture has been finalized with MSSA. DIAGNOSTIC IMPRESSION AND PLAN: Patient with methicillin-susceptible Staphylococcus aeruginosa bacteremia. Did have evidence of persistent bacteremia with concern for possible endovascular source. Antibiotic will be switched to nafcillin 2 grams q.4 hours. Blood cultures repeated today as well as tomorrow. Will get an echocardiogram to make sure no evidence of any vegetation. Plan of care discussed with admitting physician. Continue with supportive care. MMODL / IJN: [id number] / IRENE
[2019-05-23 19:57] LABS: Magnesium 1.9 mg/dL (1.6-2.3); Potassium 3.5 mmol/L (3.5-5.1)
[2019-05-23] MEDS ORDERED: Magnesium Replacement Protocol 1 EACH MISC MISCELLANE PRN (20:42)
[2019-05-23] MEDS: SODIUM CHLORIDE 0.9% 1,000 ML IV SCH (20:50)
[2019-05-23] MEDS: ATORVASTATIN 20 MG TAB PO SCH (20:51)
[2019-05-23] MEDS: MONTELUKAST 10 MG TAB PO SCH (20:52)
[2019-05-23] MEDS: SERTRALINE 50 MG TAB PO SCH (20:52)
--- NOTE | 2019-05-23 20:59 | PN ---
PROGRESS NOTE Patient is a followup for acute kidney injury. He was transferred to the ICU secondary to hypotension and lactic acidosis. He has Klebsiella pneumoniae urinary tract infection and Staphylococcus aureus bacteremia which is MSSA. The patient is maintained on antibiotics. He is hemodynamically stable. He was off the Levophed yesterday. However, last night he had to go back on the Levophed. He did receive a dose of IV Lasix this morning. Urine output is adequate. On examination this afternoon, blood pressure was 94/58, heart rate of 81 per minute. Patient is afebrile. EXAMINATION OF THE HEART: S1 and S2. EXAMINATION OF LUNGS: Bilateral breath sounds are heard. Decreased breath sounds at bases. ABDOMEN: Soft, non-tender. Examination of lower extremities shows no evidence of edema. REGISTERED PHYSICAL THERAPIST exam shows patient is moving all 4 extremities. Labs show hemoglobin 10.3, white cell count up to 25.2. Sodium 136, potassium 3.9, BUN 51, serum creatinine 1.16. ASSESSMENT: 1. Acute kidney injury, acute tubular necrosis secondary to hypotension and hypoperfusion, currently improved. 2. Hypokalemia, status post replacement. 3. Urinary tract infection with Klebsiella pneumoniae. 4. Staphylococcus aureus bacteremia, possibly related to the penile ulcer. 5. Hypotension secondary to sepsis. Patient was on midodrine at home as well. He was on Levophed last night, which is now discontinued. PLAN: Diurese patient cautiously. Chest x-ray from today is suggestive of CHF. However, patient is clinically able to lie flat with no significant shortness of breath. He will need to be monitored closely for volume status. MMODL / IJN: [id number] /
[2019-05-23] MEDS ORDERED: TERBUTALINE 1 MG/ML VIAL SQ ONE (21:08)
[2019-05-24] MEDS: NAFCILLIN 2 GM in DEXTROSE 5% IN WATER 100 ML IVPB SCH ×14 (00:32→23:37)
[2019-05-24] MEDS: MAGNESIUM SULFATE-D5W PMX 1 GM in DEXTROSE/WATER 1 100ML.BAG IVPB SCH ×2 (00:59→02:02)
[2019-05-24] MEDS: NOREPINEPHRINE 4 MG in SODIUM CHLORIDE 0.9% 250 ML IV SCH ×2 (01:00→19:07)
[2019-05-24 05:32] LABS: Anisocytosis Slight; HCT 31.2 % (39.0-53.0); HGB 9.9 gm/dL (13.0-17.5); Hypochromasia Slight; MCH 29.1 pg (25.0-35.0); MCHC 31.8 g/dL (31.0-37.0); MCV 91.4 fL (80.0-100.0); Mean Platelet Volume 9.9; RBC 3.41 m/uL (4.30-5.90); RDW 16.6 % (11.5-15.5); WBC 20.9 k/uL (3.8-10.6)
[2019-05-24 05:38] LABS: Platelet Count 53 k/uL (150-450)
[2019-05-24 05:48] LABS: Calcium 7.7 mg/dL (8.4-10.2); Magnesium 2.5 mg/dL (1.6-2.3); Potassium 3.2 mmol/L (3.5-5.1)
[2019-05-24 06:05] LABS: Lymphocytes # (M) 1.67 k/uL (1.0-4.8); Monocytes # (M) 0.63 k/uL (0-1.0); Neutrophils % (M) 89 %; Nucleated Red Blood Cells 0 /100 WBC (0-0); Total Cells Counted 100
[2019-05-24] MEDS: LEVOTHYROXINE 112 MCG TAB PO SCH (06:25)
[2019-05-24] MEDS: MIDODRINE 5 MG TAB PO SCH ×3 (06:25→15:09)
[2019-05-24] MEDS: POTASSIUM CHLORIDE 10 MEQ in WATER FOR INJECTION 1 100ML.BAG IVPB SCH ×4 (06:48→11:36)
--- NOTE | 2019-05-24 07:57 | XR ---
EXAMINATION TYPE: XR chest 1V portable DATE OF EXAM: 05/24/2019 CLINICAL HISTORY: Difficulty breathing progress study. TECHNIQUE: Single AP portable upright view of the chest is obtained. COMPARISON: Chest x-ray from one day earlier and older studies. FINDINGS: Overlying sternal wires and mediastinal clips are redemonstrated. There is persistent card iomegaly. There is persistent bibasilar opacities. Reticular interstitial prominence is redemonstrate d bilaterally. Osseous structures are demineralized. IMPRESSION: Overall stable findings from one day earlier cardiomegaly and chronic parenchymal change s with bibasilar acute infiltrate and/or atelectasis and possible tiny bilateral pleural effusions.
[2019-05-24] MEDS: IPRATROPIUM-ALBUTEROL 3 ML NEB INHALATION SCH ×3 (08:21→19:06)
[2019-05-24] MEDS: SYMBICORT 160-4.5 MCG INHALER INHALATION SCH ×2 (08:21→19:06)
[2019-05-24] MEDS: ASPIRIN 81 MG PO SCH (08:34)
[2019-05-24] MEDS: PANTOPRAZOLE 40 MG TABLET PO SCH (08:35)
[2019-05-24] MEDS: OXYBUTYNIN XL 5 MG TAB.ER.24 PO SCH (08:36)
[2019-05-24] MEDS: NYSTATIN 100,000 UNIT/ML SUSP 500,000 UNIT/5 ML CUP PO SCH ×4 (08:36→21:15)
[2019-05-24] MEDS: FLUDROCORTISONE 0.1 MG TAB PO SCH (08:36)
[2019-05-24] MEDS: SODIUM CHLORIDE 0.9% 1,000 ML IV SCH ×2 (08:36→22:16)
[2019-05-24] MEDS ORDERED: FUROSEMIDE 10 MG/ML 4 ML VIAL IV STA (08:44)
[2019-05-24] MEDS: HEPARIN SODIUM,PORCINE 5,000 UNIT/ML 1 ML VIAL SQ SCH ×2 (10:28→21:15)
--- NOTE | 2019-05-24 11:33 | ECHOF ---
Referral Reason:MSSA bacteremia ?endocarditis MEASUREMENTS -------- HEIGHT: 170.2 cm WEIGHT: 75.7 kg BP: 89/52 RVIDd: 3.7 cm (< 3.3) IVSd: 1.3 cm (0.6 - 1.1) LVIDd: 5.2 cm (3.9 - 5.3) LVPWd: 1.2 cm (0.6 - 1.1) IVSs: 1.6 cm LVIDs: 4.1 cm LVPWs: 1.6 cm LA Diam: 4.2 cm (2.7 - 3.8) LAESV Index (A-L): 34.19 ml/m Ao Diam: 3.5 cm (2.0 - 3.7) AV Cusp: 2.2 cm (1.5 - 2.6) MV EXCURSION: 14.577 mm (> 18.000) MV EF SLOPE: 51 mm/s (70 - 150) EPSS: 1.4 cm MV E Alfred: 1.02 m/s MV DecT: 299 ms MV A Alfred: 1.25 m/s MV E/A Ratio: 0.82 AV maxP.24 mmHg AV meanP.72 mmHg AR PHT: 555 ms RAP: 5.00 mmHg RVSP: 41.49 mmHg FINDINGS -------- Undetermined rhythm. This was a technically adequate study. The left ventricular size is normal. There is mild concentric left ventricular hypertrophy. Overa ll left ventricular systolic function is moderate-severely impaired with, an EF between 30 - 35 %. The right ventricle is mildly enlarged. LA is moderately dilated 34-39 ml/m2 The right atrium is normal in size. Interatrial and interventricular septum intact. There is mild aortic valve sclerosis. There is mild aortic regurgitation. The mitral valve leaflets are mildly thickened. Mild mitral annular calcification present. There is trace to mild mitral regurgitation. Mild tricuspid regurgitation present. There is mild pulmonary hypertension. The right ventricular systolic pressure, as measured by Doppler, is 41.49mmHg. The pulmonic valve was not well visualized. The aortic root size is normal. Normal inferior vena cava with normal inspiratory collapse consistent with estimated right atrial pre ssure of 5 mmHg. The pericardium is normal. Pleural Effusion with Fibrin. CONCLUSIONS -------- 1. Undetermined rhythm. 2. This was a technically adequate study. 3. The left ventricular size is normal. 4. There is mild concentric left ventricular hypertrophy. 5. Overall left ventricular systolic function is moderate-severely impaired with, an EF between 30 - 35 %. 6. The right ventricle is mildly enlarged. 7. LA is moderately dilated 34-39 ml/m2 8. The right atrium is normal in size. 9. Interatrial and interventricular septum intact. 10. There is mild aortic valve sclerosis. 11. There is mild aortic regurgitation. 12. The mitral valve leaflets are mildly thickened. 13. Mild mitral annular calcification present. 14. There is trace to mild mitral regurgitation. 15. Mild tricuspid regurgitation present. 16. There is mild pulmonary hypertension. 17. The right ventricular systolic pressure, as measured by Doppler, is 41.49mmHg. 18. The pulmonic valve was not well visualized. 19. The aortic root size is normal. 20. Normal inferior vena cava with normal inspiratory collapse consistent with estimated right atrial pressure of 5 mmHg. 21. The pericardium is normal. 22. Pleural Effusion with Fibrin. S[employer]IOR [employer] PAR[employer]UTIST: Gale Strickland RDCS
--- NOTE | 2019-05-24 12:09 | P.PN ---
Subjective Progress Note Date: 05/24/19 Principal diagnosis: Sepsis, right lower lobe pneumonia, septic shock. This is a 79-year-old white male patient of Dr. Wallace, with extensive medical history, was recently hospitalized for acute exacerbation of systolic congestive heart failure with an EF of 30-35%, acute hypoxic failure related to CHF, acute on chronic renal failure. Following his discharge on 05/16/2019 patient went to [facility] for rehab. On 05/20/2019 patient was brought into the hospital for evaluation of worsening shortness of breath, fever chills, increased sputum production. Denied any nausea or vomiting, patient also complained of penile pain, and dysuria. Patient does have a history of COPD on home oxygen at 4 L. Other medical history includes CAD with history of bypass grafting, bladder cancer, patient follows with Dr. Calvert from urology, hyperlipidemia, previous myocardial infarction, osteoarthritis, sleep apnea on CPAP therapy, prostate disorder, hypothyroidism, chronic back pain, and previous history of smoking. Chest x-ray was completed showing small bilateral pleural effusions, bibasilar atelectasis and diffuse interstitial and hazy opacities with the possibility of interstitial pneumonia, and fluid overload. Lab work was positive for leukocytosis, white blood cell count is 31.3, hemoglobin is 7.4, patient had 23% bandemia, correlation profile was within normal limits, serum sodium was 133, potassium 3.4, chloride was 92, CO2 is 31, BUN was 61, creatinine is 2.42. Lactic acid was 4.8 patient was given 2 L of IV fluids, this morning his lactic acid is 2.8, troponins were positive at 0.173, and 0.121. ProBNP [place] [address], urinalysis showed large amount of blood, 1+ protein, large amount of leuk trase, rare white blood cell and rare bacteria, doubt underlying urinary tract infection. Influenza screen was negative. Patient was initially admitted to stepdown floor, this morning his febrile, with a temp of 102.2, patient is tachycardic the heart rate up to 120 BPM, blood pressures are marginal, 99/71, and subsequent one was systolic in the 80s. Patient was given additional liter bolus, broad-spectrum antibiotics were started in the form of Zosyn. Blood cultures were sent on admission, we will obtain additional set of blood cultures, urinalysis, sputum culture. Patient is being transferred to the intensive care unit. Reevaluated today on 05/22/2019, patient remains in the ICU, I saw him yesterday, and arrange for the transferred to the ICU. During my evaluation, the patient was noted to be septic, he was transferred to the ICU and received a total of 3 L of fluids, and he was placed on a short. This time on norepinephrine for low blood pressure. Patient was on norepinephrine for few hours, today he is hemodynamically stable, feeling a bit better, chest x-ray clearly shows evidence of right lower lobe pneumonia and interstitial edema bilaterally. Hence the patient will be given a dose of Lasix, and his IV fluids will be cut down to 50 mL per hour. Blood cultures are positive for gram-positive cocci, hence vancomycin was added. In the meantime we will continue Zosyn until the final identification and sensitivity noted from the blood cultures. WBC count today is down to 23.8 hemoglobin is 8.6 electrolytes are normal BUN is 53 creatinine is 1.48, improving compared to 2.42 on admission. Troponin was noted to be 0.069. Potassium is 3.5 be corrected as per protocol. Reevaluated today on 05/23/2019, patient remains in the ICU, off norepinephrine, hemodynamically stable, urine output is marginal but improving with diuretics, and he was given a dose of Lasix earlier today. Overall the patient is slightly better compared to his presentation. Chest x-ray continues to showsome component of congestive heart failure, and some component of patchy infiltrates in the right lower lobe. Small pleural effusion is noted right greater than left.WBC count remains elevated at 25.2 hemoglobin is 10.3. Electrodes are normal BUN is improving creatinine is also improving down to 1.16.patient is off norepinephrine today. Troponin level is slightly elevated at 0.069, Patient was reevaluated today on 05/24/2019, remains in the ICU, off norepinephrine, feeling better, breathing easier, however his chest x-ray continues to show some interstitial edema Lasix was given 40 mg IV push times one. Cut down his fluid down to 50 mL per hour. Clinically the patient is feeling better, breathing a lot easier, chest x-ray is still concerning, and his blood pressure remains marginal but he normally runs a low blood pressure. WBC down to 20.9 his electrolytes are normal except for low potassium being corrected. BUN is 48 creatinine 1.18. His blood cultures came back positive for MSSA. Patient is now on nafcillin as per infectious disease on the case. Other antibiotics have been discontinued. Objective - Vital Signs Vital signs: Vital Signs Temp 99.6 F 05/24/19 08:00 Pulse 90 05/24/19 10:00 Resp 20 05/24/19 10:00 BP 91/57 05/24/19 10:00 Pulse Ox 95 05/24/19 10:00 Intake & Output 05/23/19 05/24/19 05/24/19 18:59 06:59 18:59 Intake Total 460 2366.201 574.433 Output Total 1315 810 325 Balance -855 1556.201 249.433 Weight 76 kg Intake: IV 460 1100 450 0.9 260 900 150 Cefepime 2 gm In Sodium 100 Chloride 0.9% 100 ml @ 200 mls/hr IVPB DAILY LOUIE Rx#:[id number] Nafcillin 2 gm In 100 Dextrose 5% in Water 100 ml @ 50 mls/hr IVPB Q4HR LOUIE Rx#:[id number] Potassium Chloride 10 meq 100 200 In Water For Injection 1 100ml.bag @ 100 mls/hr IVPB Q1H LOUIE Rx#: [id number] Potassium Chloride 10 meq 200 In Water For Injection 1 100ml.bag @ 100 mls/hr IVPB Q1H LOUIE Rx#: [id number] Intake, IV Titration 0 786.201 124.433 Amount Magnesium Sulfate-D5w Pmx 200 1 gm In Dextrose/Water 1 100ml.bag @ 100 mls/hr IVPB Q1H LOUIE Rx#: [id number] Nafcillin 2 gm In 300 Dextrose 5% in Water 100 ml @ 50 mls/hr IVPB Q4HR LOUIE Rx#:[id number] Norepinephrine 4 mg In 0 86.201 124.433 Sodium Chloride 0.9% 250 ml @ 0.05 MCG/KG/MIN 13. 826 mls/hr IV .[id number] LOUIE Rx#:[id number] Potassium Chloride 10 meq 200 In Water For Injection 1 100ml.bag @ 100 mls/hr IVPB Q1H LOUIE Rx#: [id number] Oral 480 Output: Urine 1315 810 325 Other: Voiding Method Indwelling Catheter Indwelling Catheter Indwelling Catheter - Exam Physical Exam: Revealed 79-year-old white male in no distress, on 2 L nasal cannula. Head: Atraumatic, normocephalic. HEENT:[Neck is supple.] [No neck masses.] [No thyromegaly.] [No JVD.] PERRLA, EOMI, dry mucous membranes, no thrush. Chest: [Symmetrical chest expansion, fine crackles bilaterally no rhonchi and no wheezes. Cardiac Exam: [Normal S1 and S2, no S3 gallop, 2/6 systolic murmur thought the precordium. Abdomen: [Soft, nontender, no megaly, no rebound, no guarding, normal bowel sounds.] Extremities: [No clubbing, 1+ bipedal edema, no cyanosis.] Neurological Exam: [No focal neurologic deficit.] Alert and oriented 3. Psychiatric: Normal mood, affect and normal mental status examination. Skin: No rashes. Musculoskeletal: Muscle strength and tone are normal. Lymphatics: No lymphadenopathy. - Labs CBC & Chem 7: 05/24/19 04:55 05/24/19 04:55 Labs: Abnormal Lab Results - Last 24 Hours (Table) 05/23/19 05/24/19 05/24/19 Range/Units 13:45 04:55 04:55 WBC 20.9 H (3.8-10.6) k/uL RBC 3.41 L (4.30-5.90) m/uL Hgb 9.9 L (13.0-17.5) gm/dL Hct 31.2 L (39.0-53.0) % RDW 16.6 H (11.5-15.5) % Plt Count 53 L (150-450) k/uL Neutrophils # (Manual) 18.60 H (1.3-7.7) k/uL Potassium 3.2 L (3.5-5.1) mmol/L Carbon Dioxide 32 H (22-30) mmol/L BUN 48 H (9-20) mg/dL Glucose 119 H (74-99) mg/dL Calcium 7.7 L (8.4-10.2) mg/dL Magnesium 2.5 H (1.6-2.3) mg/dL Urine Protein 1+ H (Negative) Urine Blood Moderate H (Negative) Ur Leukocyte Esterase Large H (Negative) Urine RBC 87 H (0-5) /hpf Urine WBC >182 H (0-5) /hpf Urine WBC Clumps Many H (None) /hpf Urine Mucus Rare H (None) /hpf Microbiology - Last 24 Hours (Table) 05/22/19 10:14 Blood Culture Gram Stain - Preliminary Blood Blood Culture - Preliminary Presumptive Staph aureus 05/23/19 13:45 Urine Culture - Preliminary Urine,Voided 05/21/19 10:34 Urine Culture - Final Urine,Clean Catch Klebsiella pneumoniae Assessment and Plan Assessment: #1. Acute septic shock secondary to right lower lobe pneumonia, this is likely healthcare acquired pneumonia and gram-positive bacteremia. MSSA. #2. Acute on chronic hypoxemic respiratory failure related to the above #3. Lactic acidosis improving with IV hydration #4. Acute kidney injury likely related to ATN, improving with improvement of low blood pressure #5. Acute exacerbation of chronic congestive heart failure with systolic dysfunction, known to have very poor ejection fraction. 30-35% #6. Elevated troponins rule out non-ST elevated myocardial infarction #7. Recent admission for acute exacerbation of systolic CHF, acute kidney injury #8. History of COPD on chronic oxygen #9. Former smoker #10. History of bladder cancer, patient's TURBT in March 2019 had to be aborted related to hypotension. Follows with Dr. Calvert #11. History of coronary artery disease with previous bypass grafting #12. Hypertension #13. Previous myocardial infarction #14. Ischemic cardiomyopathy with the EF of 30-35% #15. Chronic anemia #16. History of benign prostatic hypertrophy Recommendation: Discussed the patient's condition with the theater education teacher, will continue diuretics, cut down her IV fluid to 50 mL per hour, given 1 dose of Lasix earlier today 40 mg IV push, discontinued Zosyn and vancomycin and will keep him on nafcillin as per infectious disease, continue to monitor the patient in the ICU, and if he remains off norepinephrine for the next 24 hours, then we could potentially transfer the patient to a monitor bed on the cardiac floor. In the meantime continue GI and DVT prophylaxis continue bronchodilators, and continue to monitor electrolytes and renal profile on a daily basis. Continue to monitor CBC his white cell count seems to be improving. Prognosis remains guarded. C Time with Patient: Less than 30
--- NOTE | 2019-05-24 14:05 | P.PN ---
Subjective 79-year-old pleasant gentleman came in with the shortness of breath and is being treated for sepsis possible source being pneumonia. Patient to sepsis improved significantly patient is off Levophed patient does have significant pulmonary edema from IV fluids and patient does have congestive heart failure ejection fraction at that to 35% received IV Lasix and this can you IV fluids will closely monitor his blood pressure patient normally has low blood pressure presently on Zosyn at this time. Being followed by multiple consultants including infectious disease rn clinical documentation specialist. 05/23/2019 Patient wishes daily stable patient is receiving IV Lasix because of his pulmonary edema. Patient does have bacteremia with the staph aureus probably the source of infection rather pneumonia or urinary tract infection patient will be switched to nafcillin discussed with infectious disease. Patient the has blood cultures that are positive second set of blood cultures are positive because of which echocardiogram will be obtained to rule out any endocarditis. Patient had low-grade fever yesterday we'll repeat blood cultures again today. Creatinine improved from 1.48 to 1.16. 05/24/2019 Patient's fevers resolved but blood cell count is improving. But patient remains bacteremic. Echocardiogram did not show any valvular lesions 9 DT astemizole which was replaced I had a lengthy discussion with the patient regarding her overall goals of care patient is agreeable for DO NOT RESUSCITATE but unsure whether he can make his own duration I'll discuss with the family regarding this. Patient prognosis is extremely poor because of possible endocarditis, bladder cancer, systolic heart failure patient is more appropriate for hospice and comfort care same thing was discussed the patient will also discuss with the family. Patient is quite a bit fatigued and he believes he is not in a 10 out of the hospital. Constitutional: Remains fatigued Cardio vascular: denied any chest pain, palpitations Gastrointestinal denied any nausea vomiting Pulmonary: Does have shortness of breath Neurologic denied any new focal deficits All inpatient medications were reviewed and appropriate changes in these medications as dictated in the interval history and assessment and plan. Objective - Vital Signs Vital signs: Vital Signs Temp 100.2 F H 05/24/19 12:01 Pulse 88 05/24/19 13:30 Resp 15 05/24/19 13:30 BP 90/53 05/24/19 13:30 Pulse Ox 97 05/24/19 13:30 Intake & Output 05/23/19 05/24/19 05/24/19 18:59 06:59 18:59 Intake Total 460 2366.201 774.433 Output Total 1315 810 650 Balance -855 1556.201 124.433 Weight 76 kg 76 kg Intake: IV 460 1100 650 0.9 260 900 250 Cefepime 2 gm In Sodium 100 Chloride 0.9% 100 ml @ 200 mls/hr IVPB DAILY LOUIE Rx#:[id number] Nafcillin 2 gm In 200 Dextrose 5% in Water 100 ml @ 50 mls/hr IVPB Q4HR LOUIE Rx#:[id number] Potassium Chloride 10 meq 100 200 In Water For Injection 1 100ml.bag @ 100 mls/hr IVPB Q1H LOUIE Rx#: [id number] Potassium Chloride 10 meq 200 In Water For Injection 1 100ml.bag @ 100 mls/hr IVPB Q1H LOUIE Rx#: [id number] Intake, IV Titration 0 786.201 124.433 Amount Magnesium Sulfate-D5w Pmx 200 1 gm In Dextrose/Water 1 100ml.bag @ 100 mls/hr IVPB Q1H LOUIE Rx#: [id number] Nafcillin 2 gm In 300 Dextrose 5% in Water 100 ml @ 50 mls/hr IVPB Q4HR LOUIE Rx#:[id number] Norepinephrine 4 mg In 0 86.201 124.433 Sodium Chloride 0.9% 250 ml @ 0.05 MCG/KG/MIN 13. 826 mls/hr IV .[id number] LOUIE Rx#:[id number] Potassium Chloride 10 meq 200 In Water For Injection 1 100ml.bag @ 100 mls/hr IVPB Q1H LOUIE Rx#: [id number] Oral 480 Output: Urine 1315 810 650 Other: Voiding Method Indwelling Catheter Indwelling Catheter Indwelling Catheter - Exam PHYSICAL EXAMINATION: GENERAL: The patient is alert and oriented x3, still appears fatigued but significantly improved compared to yesterday. Well developed, well nourished. HEENT: Pupils are round and equally reacting to light. EOMI. No scleral icterus. No conjunctival pallor. Normocephalic, atraumatic. No pharyngeal erythema. No thyromegaly. CARDIOVASCULAR: S1 and S2 present. No murmurs, rubs, or gallops. Does have elevated JVD PULMONARY: Bibasilar crackles are appreciated no wheezing was appreciated. ABDOMEN: Soft, nontender, nondistended, normoactive bowel sounds. No palpable organomegaly. MUSCULOSKELETAL: No joint swelling or deformity. EXTREMITIES: No cyanosis, clubbing, or pedal edema. NEUROLOGICAL: Gross neurological examination did not reveal any focal deficits. SKIN: No rashes. - Labs CBC & Chem 7: 05/24/19 04:55 05/24/19 04:55 Labs: Abnormal Lab Results - Last 24 Hours (Table) 05/23/19 05/24/19 05/24/19 Range/Units 13:45 04:55 04:55 WBC 20.9 H (3.8-10.6) k/uL RBC 3.41 L (4.30-5.90) m/uL Hgb 9.9 L (13.0-17.5) gm/dL Hct 31.2 L (39.0-53.0) % RDW 16.6 H (11.5-15.5) % Plt Count 53 L (150-450) k/uL Neutrophils # (Manual) 18.60 H (1.3-7.7) k/uL Potassium 3.2 L (3.5-5.1) mmol/L Carbon Dioxide 32 H (22-30) mmol/L BUN 48 H (9-20) mg/dL Glucose 119 H (74-99) mg/dL Calcium 7.7 L (8.4-10.2) mg/dL Magnesium 2.5 H (1.6-2.3) mg/dL Urine Protein 1+ H (Negative) Urine Blood Moderate H (Negative) Ur Leukocyte Esterase Large H (Negative) Urine RBC 87 H (0-5) /hpf Urine WBC >182 H (0-5) /hpf Urine WBC Clumps Many H (None) /hpf Urine Mucus Rare H (None) /hpf Microbiology - Last 24 Hours (Table) 05/23/19 10:46 Blood Culture - Preliminary Blood No Growth after 24 hours 05/22/19 10:14 Blood Culture Gram Stain - Preliminary Blood Blood Culture - Preliminary Presumptive Staph aureus 05/23/19 13:45 Urine Culture - Preliminary Urine,Voided 05/21/19 10:34 Urine Culture - Final Urine,Clean Catch Klebsiella pneumoniae Assessment and Plan Plan: Sepsis, septic shock: Osteophyte shock improved patient is still septic and bacteremic with staph aureus possible source being endocarditis which cannot be ruled out echocardiac gram will be obtained, UTI or pneumonia doesn't appear to be source of infection. Patient will be started on nafcillin patient has MSSA actively anemia which is persistent bacteremia. Because of his recurrent recent intercurrent hospitalizations patient may have had bacteremia from IV lines. Patient is presently on nafcillin remains to have persistent bacteremia -Acute hypoxic respiratory failure secondary to congestive heart failure exacerbation, patient blood pressure is low because of which patient received IV fluids patient does have significant crackles on exam receiving Lasix on as- needed basis whenever he can tolerate. -Lactic acidosis secondary to sepsis resolved now patient is presently receiving Lasix -Acute renal failure secondary to prerenal azotemia as well as acute tubular necrosis and a serum creatinine is 1.16 -Hypervolemic hyponatremia secondary to congestive heart failure improving with Lasix. -Congestive heart failure chronic systolic dysfunction ejection fraction of 30- 35% with acute exacerbation, patient has ischemic cardiomyopathy -COPD chronic hypercapnic respiratory failure on oxygen at home. -Possibility of bladder cancer bladder cancer, following follows up with urology and a recent TURP which was incomplete and aborted secondary to hypotension -Coronary artery disease with previous CABG patient has recent cardiac catheterization which did not show any atherosclerotic occlusive disease that need intervention. -Hypertension -Hypothyroidism: Continue with levothyroxine -Benign prostatic hypertrophiy. -DVT prophylaxis with subcutaneous heparin twice a day
--- NOTE | 2019-05-24 15:17 | PN ---
PROGRESS NOTE DATE OF SERVICE: 05/24/2019 REASON FOR FOLLOWUP: MSSA bacteremia. INTERVAL HISTORY: The patient is currently afebrile. Patient's blood pressure is slightly borderline. Denies having any chest pain. Has some shortness of breath. Very minimal cough. No nausea, no vomiting. No abdominal pain, no diarrhea. PHYSICAL EXAMINATION: Blood pressure 90/53 with a pulse of 80, temperature of 99, he is 97% on 4 L nasal cannula. General description is an elderly male, lying in bed in no distress. RESPIRATORY SYSTEM: Unlabored breathing with decreased breath sounds in the base, no wheeze. HEART: S1, S2. Regular rate and rhythm. ABDOMEN: Soft, no tenderness. LABS: Hemoglobin is 9.8, white count of 20.9 with a BUN of 48, creatinine 1.18. Blood cultures yesterday morning are positive as well. DIAGNOSTIC IMPRESSION AND PLAN: Patient with MSSA bacteremia. Concern is possible for any vascular source in view of the persistently positive blood culture. Echocardiogram did not show any abnormality. Will obtain a JOSE for now. Continue with naficillin. Repeat blood culture in the morning. Monitor clinical course closely. MMODL / IJN: [id number] / IRENE
[2019-05-24] MEDS ORDERED: VANCOMYCIN TROUGH DUE 1 EACH MISC MISCELLANE ONE (15:30)
[2019-05-24] MEDS: traMADol 50 MG TAB PO PRN (15:45)
--- NOTE | 2019-05-24 17:11 | PN ---
PROGRESS NOTE Patient is seen for followup for acute kidney injury. He was admitted to the hospital with respiratory distress, hypotension, severe anemia. Patient has received packed RBCs transfusion. He has underlying sepsis with urinary tract infection and Staphylococcus aureus bacteremia. Overall general condition is improved. Patient was on Levophed. Currently he is off of Levophed. It looks like his blood pressure runs low at home and he was maintained on midodrine prior to admission as well. On examination this morning, blood pressure was 89/53, heart rate of 92 per minute. Patient is afebrile. EXAMINATION OF THE HEART: S1 and S2. EXAMINATION OF LUNGS: Bilateral breath sounds are heard. Decreased breath sounds at bases. ABDOMEN: Soft, non-tender. Examination of lower extremities shows no significant edema. PICTURE BOOKER exam is grossly intact. Labs show sodium 137, potassium 3.2, BUN 48, serum creatinine 1.18, hemoglobin 9.9 g/dL. ASSESSMENT: 1. Acute kidney injury secondary to hypotension, hypoperfusion and sepsis, currently significantly improved. 2. Hypokalemia secondary to diuretics, status post replacement. 3. Sepsis from urinary tract infection and Staphylococcus aureus bacteremia, source of which is likely the penile ulcer. 4. Volume overload, status post IV Lasix today. PLAN: Decrease IV fluids. Repeat labs in a.m. and replace electrolytes. MMODL / IJN: [id number] /
[2019-05-24] MEDS: ACETAMINOPHEN TAB 325 MG TAB PO PRN (19:50)
[2019-05-24] MEDS: MONTELUKAST 10 MG TAB PO SCH (21:14)
[2019-05-24] MEDS: ATORVASTATIN 20 MG TAB PO SCH (21:14)
[2019-05-24] MEDS: SERTRALINE 50 MG TAB PO SCH (21:15)
[2019-05-25] MEDS: NAFCILLIN 2 GM in DEXTROSE 5% IN WATER 100 ML IVPB SCH ×12 (04:35→23:38)
[2019-05-25 06:04] LABS: Anisocytosis Slight; HCT 32.4 % (39.0-53.0); HGB 10.5 gm/dL (13.0-17.5); MCH 29.2 pg (25.0-35.0); MCHC 32.4 g/dL (31.0-37.0); MCV 90.1 fL (80.0-100.0); Mean Platelet Volume 10.9; RDW 16.5 % (11.5-15.5); WBC 15.9 k/uL (3.8-10.6)
[2019-05-25 06:18] LABS: Platelet Count 59 k/uL (150-450)
[2019-05-25] MEDS: LEVOTHYROXINE 112 MCG TAB PO SCH (06:21)
[2019-05-25] MEDS: MIDODRINE 5 MG TAB PO SCH ×3 (06:21→16:36)
[2019-05-25 06:40] LABS: Calcium 7.6 mg/dL (8.4-10.2); Potassium 3.6 mmol/L (3.5-5.1)
[2019-05-25 06:41] LABS: Lymphocytes # (M) 1.43 k/uL (1.0-4.8); Monocytes # (M) 0.32 k/uL (0-1.0); Neutrophils # (M) 14.15 k/uL (1.3-7.7); Neutrophils % (M) 89 %; Nucleated Red Blood Cells 0 /100 WBC (0-0); Total Cells Counted 100
[2019-05-25] MEDS: PANTOPRAZOLE 40 MG TABLET PO SCH (06:45)
[2019-05-25] MEDS: POTASSIUM CHLORIDE 10 MEQ in WATER FOR INJECTION 1 100ML.BAG IVPB SCH ×2 (07:06→08:36)
--- NOTE | 2019-05-25 07:37 | XR ---
EXAMINATION TYPE: XR chest 1V portable DATE OF EXAM: 05/25/2019 HISTORY: chf/pneumonia. REFERENCE: Previous study dated 05/24/2019. FINDINGS: There has been a midline sternotomy. The heart is enlarged. There is bibasilar airspace disease. This has worsened on the right. There are small, bilateral effusions. IMPRESSION: WORSENING RIGHT BASILAR AIRSPACE DISEASE
[2019-05-25] MEDS: IPRATROPIUM-ALBUTEROL 3 ML NEB INHALATION SCH ×3 (07:53→19:52)
[2019-05-25] MEDS: SYMBICORT 160-4.5 MCG INHALER INHALATION SCH ×2 (07:54→19:52)
[2019-05-25] MEDS: SODIUM CHLORIDE 0.9% 1,000 ML IV SCH (08:35)
[2019-05-25] MEDS: ASPIRIN 81 MG PO SCH (08:37)
[2019-05-25] MEDS: NYSTATIN 100,000 UNIT/ML SUSP 500,000 UNIT/5 ML CUP PO SCH ×4 (08:38→22:17)
[2019-05-25] MEDS: FLUDROCORTISONE 0.1 MG TAB PO SCH (08:38)
[2019-05-25] MEDS: HEPARIN SODIUM,PORCINE 5,000 UNIT/ML 1 ML VIAL SQ SCH (08:38)
[2019-05-25] MEDS: OXYBUTYNIN XL 5 MG TAB.ER.24 PO SCH (08:39)
[2019-05-25] MEDS ORDERED: FUROSEMIDE 10 MG/ML 4 ML VIAL IV STA (09:42)
--- NOTE | 2019-05-25 09:55 | P.PN ---
Subjective Progress Note Date: 05/25/19 Principal diagnosis: This is a 79-year-old male followed off because of acute kidney injury secondary to sepsis and persistent staph bacteremia with blood cultures being positive m ultiple times and the last one is also reportedly positive as of from yesterday. An echocardiogram ejection fraction of 30-35%, no vegetation was noted. A JOSE has not been performed Currently he is feeling unwell. He is off of levo fed but his blood pressures is in the 80s to 90s when the levo fed is turned off. His chest x-ray showing some worsening in the right base. His fever has been normal over the last 24 hours. Objective - Vital Signs Vital signs: Vital Signs Temp 98.1 F 05/25/19 08:00 Pulse 83 05/25/19 09:00 Resp 21 05/25/19 09:00 BP 101/65 05/25/19 09:00 Pulse Ox 94 L 05/25/19 09:00 Intake & Output 05/24/19 05/25/19 05/25/19 18:59 06:59 18:59 Intake Total 3492.193 6905.590 400 Output Total 1040 490 110 Balance 34.433 999.590 290 Weight 76 kg 78.3 kg Intake: IV 950 800 300 0.9 550 600 150 Nafcillin 2 gm In 200 200 50 Dextrose 5% in Water 100 ml @ 50 mls/hr IVPB Q4HR [facility] Rx#:[id number] Potassium Chloride 10 meq 200 In Water For Injection 1 100ml.bag @ 100 mls/hr IVPB Q1H [facility] Rx#: [id number] Potassium Chloride 10 meq 100 In Water For Injection 1 100ml.bag @ 100 mls/hr IVPB Q1H [facility] Rx#: [id number] Intake, IV Titration 124.433 209.590 100 Amount Nafcillin 2 gm In 100 Dextrose 5% in Water 100 ml @ 50 mls/hr IVPB Q4HR [facility] Rx#:[id number] Norepinephrine 4 mg In 124.433 109.590 Sodium Chloride 0.9% 250 ml @ 0.05 MCG/KG/MIN 13. 826 mls/hr IV .[id number] [facility] Rx#:[id number] Potassium Chloride 10 meq 100 In Water For Injection 1 100ml.bag @ 100 mls/hr IVPB Q1H [facility] Rx#: [id number] Oral 480 Output: Urine 1040 490 110 Other: Voiding Method Indwelling Catheter Indwelling Catheter Exam he is awake alert oriented HEENT exam no JVP neck is supple no facial asymmetry Lungs are clear to auscultate in spite of the chest x-ray showing changes. Heart sounds are unremarkable for any murmur rub gallop Abdomen soft nontender no organomegaly status masses Extremity exam was mild edema Neurologically awake alert oriented Extremities are warm to touch - Labs CBC & Chem 7: 05/25/19 05:56 05/25/19 05:56 Labs: Abnormal Lab Results - Last 24 Hours (Table) 05/25/19 05/25/19 Range/Units 05:56 05:56 WBC 15.9 H (3.8-10.6) k/uL RBC 3.60 L (4.30-5.90) m/uL Hgb 10.5 L (13.0-17.5) gm/dL Hct 32.4 L (39.0-53.0) % RDW 16.5 H (11.5-15.5) % Plt Count 59 L (150-450) k/uL Neutrophils # (Manual) 14.15 H (1.3-7.7) k/uL Sodium 133 L (137-145) mmol/L BUN 59 H (9-20) mg/dL Creatinine 1.35 H (0.66-1.25) mg/dL Glucose 123 H (74-99) mg/dL Calcium 7.6 L (8.4-10.2) mg/dL Microbiology - Last 24 Hours (Table) 05/24/19 04:55 Blood Culture Gram Stain - Preliminary Blood 05/24/19 04:55 Blood Culture - Final Blood 05/22/19 10:14 Blood Culture Gram Stain - Final Blood Blood Culture - Final Staphylococcus aureus 05/23/19 10:46 Blood Culture Gram Stain - Preliminary Blood Blood Culture - Preliminary Presumptive Staph aureus 05/23/19 13:45 Urine Culture - Final Urine,Voided 05/23/19 10:46 Blood Culture - Final Blood Assessment and Plan Assessment: Impression 1. Acute kidney injury secondary to sepsis. Creatinine was 1.18 yesterday is up slightly to 1.35. 2. Mild hyponatremia with sodium 133 down from 137. Etiology is acute kidney injury. 3. Persistent bacteremia with staph source unclear echocardiogram shows poor ejection fraction at 35% but no agitation 4. Chest x-ray is suggestive of CHF, with worsening right basal disease 5. Suspicion for CVA bladder 6. Significant thrombocytopenia with platelet count the 50,000 range Recommendation. 1. Maintain blood pressure with low-fat if necessary with a mean arterial pressure goal of 65 2. Maintain diuretic regimen. 3. Use Venofer as necessary 4. Watch sodium. 5. Considering severe thrombocytic cytopenia would suggest a medication reassessment including the heparin
--- NOTE | 2019-05-25 13:32 | P.PN ---
Subjective Progress Note Date: 05/25/19 Principal diagnosis: Sepsis, right lower lobe pneumonia, septic shock. This is a 79-year-old white male patient of Dr. Wallace, with extensive medical history, was recently hospitalized for acute exacerbation of systolic congestive heart failure with an EF of 30-35%, acute hypoxic failure related to CHF, acute on chronic renal failure. Following his discharge on 05/16/2019 patient went to [facility] for rehab. On 05/20/2019 patient was brought into the hospital for evaluation of worsening shortness of breath, fever chills, increased sputum production. Denied any nausea or vomiting, patient also complained of penile pain, and dysuria. Patient does have a history of COPD on home oxygen at 4 L. Other medical history includes CAD with history of bypass grafting, bladder cancer, patient follows with Dr. Calvert from urology, hyperlipidemia, previous myocardial infarction, osteoarthritis, sleep apnea on CPAP therapy, prostate disorder, hypothyroidism, chronic back pain, and previous history of smoking. Chest x-ray was completed showing small bilateral pleural effusions, bibasilar atelectasis and diffuse interstitial and hazy opacities with the possibility of interstitial pneumonia, and fluid overload. Lab work was positive for leukocytosis, white blood cell count is 31.3, hemoglobin is 7.4, patient had 23% bandemia, correlation profile was within normal limits, serum sodium was 133, potassium 3.4, chloride was 92, CO2 is 31, BUN was 61, creatinine is 2.42. Lactic acid was 4.8 patient was given 2 L of IV fluids, this morning his lactic acid is 2.8, troponins were positive at 0.173, and 0.121. ProB[place] [address], urinalysis showed large amount of blood, 1+ protein, large amount of leuk trase, rare white blood cell and rare bacteria, doubt underlying urinary tract infection. Influenza screen was negative. Patient was initially admitted to stepdown floor, this morning his febrile, with a temp of 102.2, patient is tachycardic the heart rate up to 120 BPM, blood pressures are marginal, 99/71, and subsequent one was systolic in the 80s. Patient was given additional liter bolus, broad-spectrum antibiotics were started in the form of Zosyn. Blood cultures were sent on admission, we will obtain additional set of blood cultures, urinalysis, sputum culture. Patient is being transferred to the intensive care unit. Reevaluated today on 05/22/2019, patient remains in the ICU, I saw him yesterday, and arrange for the transferred to the ICU. During my evaluation, the patient was noted to be septic, he was transferred to the ICU and received a total of 3 L of fluids, and he was placed on a short. This time on norepinephrine for low blood pressure. Patient was on norepinephrine for few hours, today he is hemodynamically stable, feeling a bit better, chest x-ray clearly shows evidence of right lower lobe pneumonia and interstitial edema bilaterally. Hence the patient will be given a dose of Lasix, and his IV fluids will be cut down to 50 mL per hour. Blood cultures are positive for gram-positive cocci, hence vancomycin was added. In the meantime we will continue Zosyn until the final identification and sensitivity noted from the blood cultures. WBC count today is down to 23.8 hemoglobin is 8.6 electrolytes are normal BUN is 53 creatinine is 1.48, improving compared to 2.42 on admission. Troponin was noted to be 0.069. Potassium is 3.5 be corrected as per protocol. Reevaluated today on 05/23/2019, patient remains in the ICU, off norepinephrine, hemodynamically stable, urine output is marginal but improving with diuretics, and he was given a dose of Lasix earlier today. Overall the patient is slightly better compared to his presentation. Chest x-ray continues to showsome component of congestive heart failure, and some component of patchy infiltrates in the right lower lobe. Small pleural effusion is noted right greater than left.WBC count remains elevated at 25.2 hemoglobin is 10.3. Electrodes are normal BUN is improving creatinine is also improving down to 1.16.patient is off norepinephrine today. Troponin level is slightly elevated at 0.069, Patient was reevaluated today on 05/24/2019, remains in the ICU, off norepinephrine, feeling better, breathing easier, however his chest x-ray continues to show some interstitial edema Lasix was given 40 mg IV push times one. Cut down his fluid down to 50 mL per hour. Clinically the patient is feeling better, breathing a lot easier, chest x-ray is still concerning, and his blood pressure remains marginal but he normally runs a low blood pressure. WBC down to 20.9 his electrolytes are normal except for low potassium being corrected. BUN is 48 creatinine 1.18. His blood cultures came back positive for MSSA. Patient is now on nafcillin as per infectious disease on the case. Other antibiotics have been discontinued. Reevaluated today on 05/25/2019, patient remains off norepinephrine, blood pressure remains low marginal. Responds well to IV Lasix given on a daily basis as needed. IV fluids remains at 50 mL per hour. Continues to have positive blood cultures, and a transesophageal echocardiogram should be done by cardiology. His blood cultures remain positive since admission. Patient remains on antibiotics as per infectious disease on the case. Chest x-ray showed right lower lobe consolidation, and possibly a small right-sided pleural effusion. Minimal effusion noted on the left. WBC count is coming down to 15.9 it was quite elevated on admission. It was 20.9 yesterday and a 25.22 days ago. His electrolytes are normal BUN however is up to 59, and creatinine is up to 1.35, we'll continue cautious hydration and hold on diuretics. Patient does have poor LV function and the findings on his renal status could be related to d iuretics as well as cardiorenal in nature. Objective - Vital Signs Vital signs: Vital Signs Temp 98.3 F 05/25/19 12:00 Pulse 90 05/25/19 12:30 Resp 23 05/25/19 12:30 BP 70/53 05/25/19 12:30 Pulse Ox 96 05/25/19 12:30 Intake & Output 05/24/19 05/25/19 05/25/19 18:59 06:59 18:59 Intake Total 7235.200 9425.590 650 Output Total 1040 490 175 Balance 34.433 999.590 475 Weight 76 kg 78.3 kg Intake: IV 950 800 550 0.9 550 600 250 Nafcillin 2 gm In 200 200 200 Dextrose 5% in Water 100 ml @ 50 mls/hr IVPB Q4HR [facility] Rx#:[id number] Potassium Chloride 10 meq 200 In Water For Injection 1 100ml.bag @ 100 mls/hr IVPB Q1H [facility] Rx#: [id number] Potassium Chloride 10 meq 100 In Water For Injection 1 100ml.bag @ 100 mls/hr IVPB Q1H [facility] Rx#: [id number] Intake, IV Titration 124.433 209.590 100 Amount Nafcillin 2 gm In 100 Dextrose 5% in Water 100 ml @ 50 mls/hr IVPB Q4HR L[facility] Rx#:[id number] Norepinephrine 4 mg In 124.433 109.590 0 Sodium Chloride 0.9% 250 ml @ 0.05 MCG/KG/MIN 13. 826 mls/hr IV .[id number] [facility] Rx#:[id number] Potassium Chloride 10 meq 100 In Water For Injection 1 100ml.bag @ 100 mls/hr IVPB Q1H L[facility] Rx#: [id number] Oral 480 Output: Urine 1040 490 175 Other: Voiding Method Indwelling Catheter Indwelling Catheter Indwelling Catheter - Exam Physical Exam: Revealed 79-year-old white male in no distress, on 2 L nasal cannula. Head: Atraumatic, normocephalic. HEENT:[Neck is supple.] [No neck masses.] [No thyromegaly.] [No JVD.] PERRLA, EOMI, dry mucous membranes, no thrush. Chest: [Symmetrical chest expansion, fine crackles bilaterally no rhonchi and no wheezes. Cardiac Exam: [Normal S1 and S2, no S3 gallop, 2/6 systolic murmur thought the precordium. Abdomen: [Soft, nontender, no megaly, no rebound, no guarding, normal bowel sounds.] Extremities: [No clubbing, 1+ bipedal edema, no cyanosis.] Neurological Exam: [No focal neurologic deficit.] Alert and oriented 3. Psychiatric: Normal mood, affect and normal mental status examination. Skin: No rashes. Musculoskeletal: Muscle strength and tone are normal. Lymphatics: No lymphadenopathy. - Labs CBC & Chem 7: 05/25/19 05:56 05/25/19 05:56 Labs: Abnormal Lab Results - Last 24 Hours (Table) 05/25/19 05/25/19 Range/Units 05:56 05:56 WBC 15.9 H (3.8-10.6) k/uL RBC 3.60 L (4.30-5.90) m/uL Hgb 10.5 L (13.0-17.5) gm/dL Hct 32.4 L (39.0-53.0) % RDW 16.5 H (11.5-15.5) % Plt Count 59 L (150-450) k/uL Neutrophils # (Manual) 14.15 H (1.3-7.7) k/uL Sodium 133 L (137-145) mmol/L BUN 59 H (9-20) mg/dL Creatinine 1.35 H (0.66-1.25) mg/dL Glucose 123 H (74-99) mg/dL Calcium 7.6 L (8.4-10.2) mg/dL Microbiology - Last 24 Hours (Table) 05/24/19 04:55 Blood Culture Gram Stain - Preliminary Blood 05/24/19 04:55 Blood Culture - Final Blood 05/22/19 10:14 Blood Culture Gram Stain - Final Blood Blood Culture - Final Staphylococcus aureus 05/23/19 10:46 Blood Culture Gram Stain - Preliminary Blood Blood Culture - Preliminary Presumptive Staph aureus 05/23/19 13:45 Urine Culture - Final Urine,Voided 05/23/19 10:46 Blood Culture - Final Blood Assessment and Plan Assessment: #1. Acute septic shock secondary to right lower lobe pneumonia, this is likely healthcare acquired pneumonia and gram-positive bacteremia. MSSA. #2. Acute on chronic hypoxemic respiratory failure related to the above #3. Lactic acidosis improving with IV hydration #4. Acute kidney injury likely related to ATN, improving with improvement of low blood pressure #5. Acute exacerbation of chronic congestive heart failure with systolic dysfunction, known to have very poor ejection fraction. 30-35% #6. Elevated troponins rule out non-ST elevated myocardial infarction #7. Recent admission for acute exacerbation of systolic CHF, acute kidney injury #8. History of COPD on chronic oxygen #9. Former smoker #10. History of bladder cancer, patient's TURBT in March 2019 had to be aborted related to hypotension. Follows with Dr. Calvert #11. History of coronary artery disease with previous bypass grafting #12. Hypertension #13. Previous myocardial infarction #14. Ischemic cardiomyopathy with the EF of 30-35% #15. Chronic anemia #16. History of benign prostatic hypertrophy #17 persistent positive blood cultures, rule out endocarditis, transesophageal echo is recommended, his transthoracic echo showed no evidence of vegetations. We'll consult cardiology for JOSE. Recommendation: Continue present supportive care measures, continue antibiotics, cut down on diuretics, continue to monitor in the ICU, cardiology consultation was requested for JOSE. Prognosis is extremely poor and guarded. May even consider ultrasound of the chest and possibly a right-sided thoracentesis on this patient if the fluid on the right side is large enough to be drained. C Time with Patient: Less than 30
--- NOTE | 2019-05-25 13:56 | P.PN ---
Subjective 79-year-old pleasant gentleman came in with the shortness of breath and is being treated for sepsis possible source being pneumonia. Patient to sepsis improved significantly patient is off Levophed patient does have significant pulmonary edema from IV fluids and patient does have congestive heart failure ejection fraction at that to 35% received IV Lasix and this can you IV fluids will closely monitor his blood pressure patient normally has low blood pressure presently on Zosyn at this time. Being followed by multiple consultants including infectious disease tool crib lead. 05/23/2019 Patient wishes daily stable patient is receiving IV Lasix because of his pulmonary edema. Patient does have bacteremia with the staph aureus probably the source of infection rather pneumonia or urinary tract infection patient will be switched to nafcillin discussed with infectious disease. Patient the has blood cultures that are positive second set of blood cultures are positive because of which echocardiogram will be obtained to rule out any endocarditis. Patient had low-grade fever yesterday we'll repeat blood cultures again today. Creatinine improved from 1.48 to 1.16. 05/24/2019 Patient's fevers resolved but blood cell count is improving. But patient remains bacteremic. Echocardiogram did not show any valvular lesions 9 DT astemizole which was replaced I had a lengthy discussion with the patient regarding her overall goals of care patient is agreeable for DO NOT RESUSCITATE but unsure whether he can make his own duration I'll discuss with the family regarding this. Patient prognosis is extremely poor because of possible endocarditis, bladder cancer, systolic heart failure patient is more appropriate for hospice and comfort care same thing was discussed the patient will also discuss with the family. Patient is quite a bit fatigued and he believes he is not in a 10 out of the hospital. 04/24/2019 patient is not doing well patient the blood cultures were positive from will repeat blood cultures tomorrow creatinine started going up patient blood pressure is still unstable patient is back on Levophed is still getting IV fluids patient does have pulmonary edema prognosis is extremely poor, will discuss with the family regarding hospice. Was unable to reach family yesterday Constitutional: Remains fatigued Cardio vascular: denied any chest pain, palpitations Gastrointestinal denied any nausea vomiting Pulmonary: Does have shortness of breath Neurologic denied any new focal deficits All inpatient medications were reviewed and appropriate changes in these medications as dictated in the interval history and assessment and plan. Objective - Vital Signs Vital signs: Vital Signs Temp 98.3 F 05/25/19 12:00 Pulse 90 05/25/19 12:30 Resp 23 05/25/19 12:30 BP 70/53 05/25/19 12:30 Pulse Ox 96 05/25/19 12:30 Intake & Output 05/24/19 05/25/19 05/25/19 18:59 06:59 18:59 Intake Total 8474.294 2384.590 650 Output Total 1040 490 175 Balance 34.433 999.590 475 Weight 76 kg 78.3 kg Intake: IV 950 800 550 0.9 550 600 250 Nafcillin 2 gm In 200 200 200 Dextrose 5% in Water 100 ml @ 50 mls/hr IVPB Q4HR [facility] Rx#:[id number] Potassium Chloride 10 meq 200 In Water For Injection 1 100ml.bag @ 100 mls/hr IVPB Q1H [facility] Rx#: [id number] Potassium Chloride 10 meq 100 In Water For Injection 1 100ml.bag @ 100 mls/hr IVPB Q1H [facility] Rx#: [id number] Intake, IV Titration 124.433 209.590 100 Amount Nafcillin 2 gm In 100 Dextrose 5% in Water 100 ml @ 50 mls/hr IVPB Q4HR LOU[facility] Rx#:[id number] Norepinephrine 4 mg In 124.433 109.590 0 Sodium Chloride 0.9% 250 ml @ 0.05 MCG/KG/MIN 13. 826 mls/hr IV .[id number] LOUIE Rx#:[id number] Potassium Chloride 10 meq 100 In Water For Injection 1 100ml.bag @ 100 mls/hr IVPB Q1H [facility] Rx#: [id number] Oral 480 Output: Urine 1040 490 175 Other: Voiding Method Indwelling Catheter Indwelling Catheter Indwelling Catheter - Exam PHYSICAL EXAMINATION: GENERAL: The patient is alert and oriented x3, still appears fatigued but significantly improved compared to yesterday. Well developed, well nourished. HEENT: Pupils are round and equally reacting to light. EOMI. No scleral icterus. No conjunctival pallor. Normocephalic, atraumatic. No pharyngeal erythema. No thyromegaly. CARDIOVASCULAR: S1 and S2 present. No murmurs, rubs, or gallops. Does have elevated JVD PULMONARY: Bibasilar crackles are appreciated no wheezing was appreciated. ABDOMEN: Soft, nontender, nondistended, normoactive bowel sounds. No palpable organomegaly. MUSCULOSKELETAL: No joint swelling or deformity. EXTREMITIES: No cyanosis, clubbing, or pedal edema. NEUROLOGICAL: Gross neurological examination did not reveal any focal deficits. SKIN: No rashes. - Labs CBC & Chem 7: 05/25/19 05:56 05/25/19 05:56 Labs: Abnormal Lab Results - Last 24 Hours (Table) 05/25/19 05/25/19 Range/Units 05:56 05:56 WBC 15.9 H (3.8-10.6) k/uL RBC 3.60 L (4.30-5.90) m/uL Hgb 10.5 L (13.0-17.5) gm/dL Hct 32.4 L (39.0-53.0) % RDW 16.5 H (11.5-15.5) % Plt Count 59 L (150-450) k/uL Neutrophils # (Manual) 14.15 H (1.3-7.7) k/uL Sodium 133 L (137-145) mmol/L BUN 59 H (9-20) mg/dL Creatinine 1.35 H (0.66-1.25) mg/dL Glucose 123 H (74-99) mg/dL Calcium 7.6 L (8.4-10.2) mg/dL Microbiology - Last 24 Hours (Table) 05/24/19 04:55 Blood Culture Gram Stain - Preliminary Blood 05/24/19 04:55 Blood Culture - Final Blood 05/22/19 10:14 Blood Culture Gram Stain - Final Blood Blood Culture - Final Staphylococcus aureus 05/23/19 10:46 Blood Culture Gram Stain - Preliminary Blood Blood Culture - Preliminary Presumptive Staph aureus 05/23/19 13:45 Urine Culture - Final Urine,Voided 05/23/19 10:46 Blood Culture - Final Blood Assessment and Plan Plan: Sepsis, septic shock: shock improved patient is still septic and bacteremic with staph aureus possible source being endocarditis which cannot be ruled out echocardiac gram did not show any endocarditis but will require JOSE for that, UTI or pneumonia doesn't appear to be source of infection. Patient will be started on nafcillin patient has MSSA actively anemia which is persistent bacteremia. Because of his recurrent recent intercurrent hospitalizations patient may have had bacteremia from IV lines. Patient is presently on nafcillin remains to have persistent bacteremia. Patient is back on norepinephrine and receiving IV fluids per does have pulmonary edema -Acute hypoxic respiratory failure secondary to congestive heart failure exacerbation, patient blood pressure is low because of which patient received IV fluids patient does have significant crackles on exam receiving Lasix on as- needed basis whenever he can tolerate. -Lactic acidosis secondary to sepsis resolved now patient is presently receiving Lasix -Acute renal failure secondary to prerenal azotemia as well as acute tubular necrosis creatinine improved started going up again because of hypotension, sepsis and congestive heart failure -Hypervolemic hyponatremia secondary to congestive heart failure improving with Lasix. -Congestive heart failure chronic systolic dysfunction ejection fraction of 30- 35% with acute exacerbation, patient has ischemic cardiomyopathy -COPD chronic hypercapnic respiratory failure on oxygen at home. -Possibility of bladder cancer bladder cancer, following follows up with urology and a recent TURP which was incomplete and aborted secondary to hypotension -Coronary artery disease with previous CABG patient has recent cardiac catheterization which did not show any atherosclerotic occlusive disease that need intervention. -Hypertension -Hypothyroidism: Continue with levothyroxine -Benign prostatic hypertrophiy. -DVT prophylaxis with subcutaneous heparin twice a day
[2019-05-25] MEDS: NOREPINEPHRINE 4 MG in SODIUM CHLORIDE 0.9% 250 ML IV SCH (18:18)
[2019-05-25] MEDS: ATORVASTATIN 20 MG TAB PO SCH (20:00)
[2019-05-25] MEDS: MONTELUKAST 10 MG TAB PO SCH (20:00)
[2019-05-25] MEDS: SERTRALINE 50 MG TAB PO SCH (20:01)
--- NOTE | 2019-05-25 21:40 | US ---
EXAMINATION TYPE: US chest DATE OF EXAM: 05/25/2019 COMPARISON: Radiograph same day CLINICAL HISTORY: 79-year-old male Markings for thoracentesis by pulmonary staff. Pleural effusion. TECHNIQUE: Targeted ultrasound of the posterior lower bilateral hemithoraces FINDINGS: EXAM MEASUREMENTS: Right Pleural Effusion pocket size: 8.1 cm Right skin surface to fluid distance: 3.1 cm Left Pleural Effusion pocket size: 3.3 cm Left skin surface to fluid distance: 2.6 cm Right side marked for possible thoracentesis outside the dept. Pulmonologists are able to review the images in the patient?s EMR. Hospice/Home Health Aide notes: Right side marked for possible thoracentesis lung tissue visualized 2.8 cm deep w ithin the pocket of fluid. IMPRESSIONS: Small to moderate-sized right pleural effusion. Trace to small left pleural effusion.
--- NOTE | 2019-05-25 23:21 | PN ---
PROGRESS NOTE DATE OF SERVICE: 05/25/2019. REASON FOR FOLLOW UP: MSSA bacteremia with question of possible endocarditis. INTERVAL HISTORY: The patient is currently afebrile. Patient hemodynamically slightly better, complaining of some shortness of breath. No chest pain. Occasional cough. No abdominal pain. No diarrhea. PHYSICAL EXAMINATION: Blood pressure 97/77 with a pulse of 84, temperature 98. He is 96% on 4 L nasal cannula. General description is an elderly male lying in bed in no distress. Respiratory system: Unlabored breathing with decreased breath sounds in the bases. No wheeze. Heart S1, S2. Regular rate and rhythm. Abdomen soft. No tenderness. EXTREMITIES: Some trace edema of the feet. LABS: Hemoglobin is 10.5, white count 15.9, BUN of 15, creatinine 1.35. DIAGNOSTIC IMPRESSION AND PLAN: Patient with persistent MSSA bacteremia with concern for possible endocarditis. Cardiology has been consulted for JOSE. The patient is on Nafcillin 2 g q.4 hours to continue. Blood cultures repeated for tomorrow to document clearance of his bacteremia and continue with supportive care. MMODL / IJN: [id number] /
[2019-05-26] MEDS: NOREPINEPHRINE 4 MG in SODIUM CHLORIDE 0.9% 250 ML IV SCH ×3 (02:13→21:43)
[2019-05-26] MEDS: NAFCILLIN 2 GM in DEXTROSE 5% IN WATER 100 ML IVPB SCH ×12 (04:03→23:44)
[2019-05-26 06:06] LABS: Anisocytosis Slight; Basophils # (A) 0.1 k/uL (0-0.2); Basophils % (A) 1 %; Eosinophils # (A) 0.1 k/uL (0-0.7); Eosinophils % (A) 1 %; HCT 32.7 % (39.0-53.0); HGB 10.4 gm/dL (13.0-17.5); Lymphocytes # (A) 1.3 k/uL (1.0-4.8); Lymphocytes % (A) 10 %; MCHC 31.7 g/dL (31.0-37.0); MCV 91.5 fL (80.0-100.0); Mean Platelet Volume 9.4; Monocytes # (A) 0.3 k/uL (0-1.0); Monocytes % (A) 2 %; Neutrophils # (A) 10.8 k/uL (1.3-7.7); Neutrophils % (A) 85 %; RBC 3.57 m/uL (4.30-5.90); RDW 16.3 % (11.5-15.5); WBC 12.7 k/uL (3.8-10.6)
[2019-05-26 06:08] LABS: Platelet Count 90 k/uL (150-450)
[2019-05-26 06:17] LABS: Calcium 7.5 mg/dL (8.4-10.2); Potassium 4.1 mmol/L (3.5-5.1)
[2019-05-26] MEDS: MIDODRINE 5 MG TAB PO SCH ×3 (06:18→15:23)
[2019-05-26] MEDS: PANTOPRAZOLE 40 MG TABLET PO SCH (06:33)
[2019-05-26] MEDS: LEVOTHYROXINE 112 MCG TAB PO SCH (06:33)
--- NOTE | 2019-05-26 07:01 | XR ---
EXAMINATION TYPE: XR chest 1V portable DATE OF EXAM: 05/26/2019 HISTORY: chf/pneumonia. REFERENCE: Previous study dated 05/25/2019. FINDINGS: There has been a midline sternotomy. The heart is enlarged. There is bibasilar airspace dis ease. This has worsened on the right. There are small, bilateral effusions. IMPRESSION: 1. MILD CARDIOMEGALY. 2. BILATERAL AIRSPACE DISEASE WORSENED ON THE RIGHT. 3. SMALL, BILATERAL EFFUSIONS.
[2019-05-26] MEDS: SYMBICORT 160-4.5 MCG INHALER INHALATION SCH ×3 (07:56→19:41)
[2019-05-26] MEDS: IPRATROPIUM-ALBUTEROL 3 ML NEB INHALATION SCH ×3 (07:56→19:30)
[2019-05-26] MEDS: SODIUM CHLORIDE 0.9% 1,000 ML IV SCH ×2 (08:33→12:46)
[2019-05-26] MEDS: NYSTATIN 100,000 UNIT/ML SUSP 500,000 UNIT/5 ML CUP PO SCH ×4 (08:34→21:40)
[2019-05-26] MEDS: ASPIRIN 81 MG PO SCH (08:34)
[2019-05-26] MEDS: FLUDROCORTISONE 0.1 MG TAB PO SCH (08:34)
[2019-05-26] MEDS: OXYBUTYNIN XL 5 MG TAB.ER.24 PO SCH (08:34)
--- NOTE | 2019-05-26 10:53 | P.PN ---
Subjective Progress Note Date: 05/26/19 Principal diagnosis: This is a 79-year-old male followed off because of acute kidney injury secondary to sepsis and persistent staph bacteremia with blood cultures being positive m ultiple times and the last one is also reportedly positive as of from yesterday. An echocardiogram ejection fraction of 30-35%, no vegetation was noted. A JOSE has not been performed Currently he is confused and feeling unwell. He is back on the levo fed. He is on nasal cannula oxygen. His chest x-ray showing some worsening in the right base. His fever has been normal over the last 24 hours. He is known with coronary artery disease, congestive heart failure, sleep apnea and COPD. Objective - Vital Signs Vital signs: Vital Signs Temp 99.0 F 05/26/19 08:00 Pulse 81 05/26/19 08:45 Resp 29 H 05/26/19 08:45 BP 118/54 05/26/19 08:45 Pulse Ox 93 L 05/26/19 08:45 Intake & Output 05/25/19 05/26/19 05/26/19 18:59 06:59 18:59 Intake Total 612.296 0997.807 300 Output Total 370 295 32 Balance 599.977 913.807 268 Weight 79.3 kg Intake: IV 850 800 50 0.9 550 600 50 Nafcillin 2 gm In 200 200 Dextrose 5% in Water 100 ml @ 50 mls/hr IVPB Q4HR [facility] Rx#:[id number] Potassium Chloride 10 meq 100 In Water For Injection 1 100ml.bag @ 100 mls/hr IVPB Q1H L[facility]IE Rx#: [id number] Intake, IV Titration 119.977 208.807 Amount Nafcillin 2 gm In 70 Dextrose 5% in Water 100 ml @ 50 mls/hr IVPB Q4HR L[facility]IE Rx#:[id number] Norepinephrine 4 mg In 19.977 138.807 Sodium Chloride 0.9% 250 ml @ 0.05 MCG/KG/MIN 13. 826 mls/hr IV .[id number] L[facility]IE Rx#:[id number] Potassium Chloride 10 meq 100 In Water For Injection 1 100ml.bag @ 100 mls/hr IVPB Q1H L[facility] Rx#: [id number] Oral 200 250 Output: Urine 370 295 32 Other: Voiding Method Indwelling Catheter Indwelling Catheter On examination he is somewhat confused. HEENT exam no JVP neck is supple no facial asymmetry Lungs are clear to auscultation fair air entry bilaterally Heart sounds are unremarkable. No murmur or gallop click. on the monitor is showing multiple PACs Abdomen soft nontender no masses felt Extremity exam was mild edema Neurologically confused but able to move all limbs and has generalized weakness - Labs CBC & Chem 7: 05/26/19 05:53 05/26/19 05:53 Labs: Abnormal Lab Results - Last 24 Hours (Table) 05/26/19 05/26/19 Range/Units 05:53 05:53 WBC 12.7 H (3.8-10.6) k/uL RBC 3.57 L (4.30-5.90) m/uL Hgb 10.4 L (13.0-17.5) gm/dL Hct 32.7 L (39.0-53.0) % RDW 16.3 H (11.5-15.5) % Plt Count 90 L D (150-450) k/uL Neutrophils # 10.8 H (1.3-7.7) k/uL Sodium 132 L (137-145) mmol/L Chloride 95 L (98-107) mmol/L BUN 70 H (9-20) mg/dL Creatinine 2.33 H (0.66-1.25) mg/dL Glucose 117 H (74-99) mg/dL Calcium 7.5 L (8.4-10.2) mg/dL Microbiology - Last 24 Hours (Table) 05/25/19 05:56 Blood Culture - Preliminary Blood No Growth after 24 hours 05/23/19 10:46 Blood Culture Gram Stain - Final Blood Blood Culture - Final Staphylococcus aureus 05/24/19 04:55 Blood Culture Gram Stain - Preliminary Blood Blood Culture - Preliminary Presumptive Staph aureus 05/24/19 04:55 Blood Culture - Final Blood Assessment and Plan Assessment: Impression 1. Acute kidney injury secondary to sepsis. Creatinine was 1.18 and has gone up to 2.3, urine output is down to 6 65 mL 2. Mild hyponatremia with sodium 132 down from 137. Etiology is acute kidney injury. 3. Persistent bacteremia with staph source unclear echocardiogram shows poor ejection fraction at 35% but no vegetation 4. Suspicion for CV bladder 6. Significant thrombocytopenia with platelet count the 50,000 range, improved to 90,000. Etiology unclear was on heparin Recommendation. 1. Agree with discontinuing the diuretics. 2. Would gently hydrate and see. Start IV normal saline at 50 an hour 3. Tums cytopenia associated HUS is unlikely. 4. Will monitor urine output and labs
--- NOTE | 2019-05-26 11:22 | P.PN ---
Subjective Progress Note Date: 05/26/19 Principal diagnosis: Sepsis, gram-positive bacteremia right lower lobe pneumonia, septic shock. Possible endocarditis This is a 79-year-old white male patient of Dr. Wallace, with extensive medical history, was recently hospitalized for acute exacerbation of systolic congestive heart failure with an EF of 30-35%, acute hypoxic failure related to CHF, acute on chronic renal failure. Following his discharge on 05/16/2019 patient went to [facility] for rehab. On 05/20/2019 patient was brought into the hospital for evaluation of worsening shortness of breath, fever chills, increased sputum production. Denied any nausea or vomiting, patient also complained of penile pa in, and dysuria. Patient does have a history of COPD on home oxygen at 4 L. Other medical history includes CAD with history of bypass grafting, bladder cancer, patient follows with Dr. Calvert from urology, hyperlipidemia, previous myocardial infarction, osteoarthritis, sleep apnea on CPAP therapy, prostate disorder, hypothyroidism, chronic back pain, and previous history of smoking. Chest x-ray was completed showing small bilateral pleural effusions, bibasilar atelectasis and diffuse interstitial and hazy opacities with the possibility of interstitial pneumonia, and fluid overload. Lab work was positive for leukocytosis, white blood cell count is 31.3, hemoglobin is 7.4, patient had 23% bandemia, correlation profile was within normal limits, serum sodium was 133, potassium 3.4, chloride was 92, CO2 is 31, BUN was 61, creatinine is 2.42. Lactic acid was 4.8 patient was given 2 L of IV fluids, this morning his lactic acid is 2.8, troponins were positive at 0.173, and 0.121. [place] [address], urinalysis showed large amount of blood, 1+ protein, large amount of leuk trase, rare white blood cell and rare bacteria, doubt underlying urinary tract infection. Influenza screen was negative. Patient was initially admitted to stepdown floor, this morning his febrile, with a temp of 102.2, patient is tachycardic the heart rate up to 120 BPM, blood pressures are marginal, 99/71, and subsequent one was systolic in the 80s. Patient was given additional liter bolus, broad-spectrum antibiotics were started in the form of Zosyn. Blood cultures were sent on admission, we will obtain additional set of blood cultures, urinalysis, sputum culture. Patient is being transferred to the ntensive care unit. Reevaluated today on 05/22/2019, patient remains in the ICU, I saw him yesterday, and arrange for the transferred to the ICU. During my evaluation, the patient was noted to be septic, he was transferred to the ICU and received a total of 3 L of fluids, and he was placed on a short. This time on norepinephrine for low blood pressure. Patient was on norepinephrine for few hours, today he is hemodynamically stable, feeling a bit better, chest x-ray clearly shows evidence of right lower lobe pneumonia and interstitial edema bilaterally. Hence the patient will be given a dose of Lasix, and his IV fluids will be cut down to 50 mL per hour. Blood cultures are positive for gram-positive cocci, hence vancomycin was added. In the meantime we will continue Zosyn until the final identification and sensitivity noted from the blood cultures. WBC count today is down to 23.8 hemoglobin is 8.6 electrolytes are normal BUN is 53 creatinine is 1.48, improving compared to 2.42 on admission. Troponin was noted to be 0.069. Potassium is 3.5 be corrected as per protocol. Reevaluated today on 05/23/2019, patient remains in the ICU, off norepinephrine, hemodynamically stable, urine output is marginal but improving with diuretics, and he was given a dose of Lasix earlier today. Overall the patient is slightly better compared to his presentation. Chest x-ray continues to showsome component of congestive heart failure, and some component of patchy infiltrates in the right lower lobe. Small pleural effusion is noted right greater than left.WBC count remains elevated at 25.2 hemoglobin is 10.3. Electrodes are normal BUN is improving creatinine is also improving down to 1.16.patient is off norepinephrine today. Troponin level is slightly elevated at 0.069, Patient was reevaluated today on 05/24/2019, remains in the ICU, off norepinephrine, feeling better, breathing easier, however his chest x-ray continues to show some interstitial edema Lasix was given 40 mg IV push times one. Cut down his fluid down to 50 mL per hour. Clinically the patient is feeling better, breathing a lot easier, chest x-ray is still concerning, and his blood pressure remains marginal but he normally runs a low blood pressure. WBC down to 20.9 his electrolytes are normal except for low potassium being corrected. BUN is 48 creatinine 1.18. His blood cultures came back positive for MSSA. Patient is now on nafcillin as per infectious disease on the case. Other antibiotics have been discontinued. Reevaluated today on 05/25/2019, patient remains off norepinephrine, blood pressure remains low marginal. Responds well to IV Lasix given on a daily basis as needed. IV fluids remains at 50 mL per hour. Continues to have positive blood cultures, and a transesophageal echocardiogram should be done by cardiology. His blood cultures remain positive since admission. Patient dinh ins on antibiotics as per infectious disease on the case. Chest x-ray showed right lower lobe consolidation, and possibly a small right-sided pleural effusion. Minimal effusion noted on the left. WBC count is coming down to 15.9 it was quite elevated on admission. It was 20.9 yesterday and a 25.22 days ago. His electrolytes are normal BUN however is up to 59, and creatinine is up to 1.35, we'll continue cautious hydration and hold on diuretics. Patient does have poor LV function and the findings on his renal status could be related to diuretics as well as cardiorenal in nature. Reevaluated today on 05/26/2019, patient is back on norepinephrine today at 0.06 mcg/kg/m. Patient had low blood pressure last night, low urine output, hence he is now back on norepinephrine, and he is receiving IV fluid at 70 mL per hour. Will hold on any diuretics today. Patient continues to have positive blood cultures, initiated a cardiology consultation yesterday, not seen yet by cardiology, patient will definitely require transesophageal echocardiogram to document endocarditis and to explain his persistent positive blood cultures. Ultrasound of the chest did not show enough pleural effusion on the right side to consider safe thoracentesis. Hence no thoracentesis will be done. His transthoracic echocardiogram did show evidence of poor LV function with ejection fraction of 30-35 percent. And hopefully a transesophageal echo could be done tomorrow. Clinically the patient is slightly confused, he is not in any form of respiratory distress. Chest x-ray continues to show air space disease in the right lower lobe and small tiny right-sided pleural effusion. Also there is evidence of mild pulmonary edema. Objective - Vital Signs Vital signs: Vital Signs Temp 99.0 F 05/26/19 08:00 Pulse 87 05/26/19 11:00 Resp 16 05/26/19 11:00 BP 104/45 05/26/19 11:00 Pulse Ox 97 05/26/19 11:00 Intake & Output 05/25/19 05/26/19 05/26/19 18:59 06:59 18:59 Intake Total 641.598 5784.807 731.065 Output Total 370 295 117 Balance 599.977 913.807 614.065 Weight 79.3 kg Intake: IV 850 800 390 0.9 550 600 200 Nafcillin 2 gm In 200 200 190 Dextrose 5% in Water 100 ml @ 50 mls/hr IVPB Q4HR LOUIE Rx#:[id number] Potassium Chloride 10 meq 100 In Water For Injection 1 100ml.bag @ 100 mls/hr IVPB Q1H LOUIE Rx#: [id number] Intake, IV Titration 119.977 208.807 91.065 Amount Nafcillin 2 gm In 70 Dextrose 5% in Water 100 ml @ 50 mls/hr IVPB Q4HR LOUIE Rx#:[id number] Norepinephrine 4 mg In 19.977 138.807 91.065 Sodium Chloride 0.9% 250 ml @ 0.05 MCG/KG/MIN 13. 826 mls/hr IV .[id number] LOUIE Rx#:[id number] Potassium Chloride 10 meq 100 In Water For Injection 1 100ml.bag @ 100 mls/hr IVPB Q1H LOUIE Rx#: [id number] Oral 200 250 Output: Urine 370 295 117 Other: Voiding Method Indwelling Catheter Indwelling Catheter - Exam Physical Exam: Revealed 79-year-old white male confused, on 2 L nasal cannula. In no distress. Head: Atraumatic, normocephalic. HEENT:[Neck is supple.] [No neck masses.] [No thyromegaly.] [No JVD.] PERRLA, EOMI, dry mucous membranes, no thrush. Chest: [Symmetrical chest expansion, fine crackles bilaterally no rhonchi and no wheezes. Cardiac Exam: [Normal S1 and S2, no S3 gallop, 2/6 systolic murmur thought the precordium. Abdomen: [Soft, nontender, no megaly, no rebound, no guarding, normal bowel sounds.] Extremities: [No clubbing, 1+ bipedal edema, no cyanosis.] Neurological Exam: [No focal neurologic deficit.] Alert and oriented 3. Psychiatric: Normal mood, affect and normal mental status examination. Skin: No rashes. Musculoskeletal: Muscle strength and tone are normal. Lymphatics: No lymphadenopathy. - Labs CBC & Chem 7: 05/26/19 05:53 05/26/19 05:53 Labs: Abnormal Lab Results - Last 24 Hours (Table) 05/26/19 05/26/19 Range/Units 05:53 05:53 WBC 12.7 H (3.8-10.6) k/uL RBC 3.57 L (4.30-5.90) m/uL Hgb 10.4 L (13.0-17.5) gm/dL Hct 32.7 L (39.0-53.0) % RDW 16.3 H (11.5-15.5) % Plt Count 90 L D (150-450) k/uL Neutrophils # 10.8 H (1.3-7.7) k/uL Sodium 132 L (137-145) mmol/L Chloride 95 L (98-107) mmol/L BUN 70 H (9-20) mg/dL Creatinine 2.33 H (0.66-1.25) mg/dL Glucose 117 H (74-99) mg/dL Calcium 7.5 L (8.4-10.2) mg/dL Microbiology - Last 24 Hours (Table) 05/25/19 05:56 Blood Culture - Preliminary Blood No Growth after 24 hours 05/23/19 10:46 Blood Culture Gram Stain - Final Blood Blood Culture - Final Staphylococcus aureus 05/24/19 04:55 Blood Culture Gram Stain - Preliminary Blood Blood Culture - Preliminary Presumptive Staph aureus 05/24/19 04:55 Blood Culture - Final Blood Assessment and Plan Assessment: #1. Acute septic shock secondary to right lower lobe pneumonia, this is likely healthcare acquired pneumonia and gram-positive bacteremia. MSSA. #2. Acute on chronic hypoxemic respiratory failure related to the above #3. Lactic acidosis improving with IV hydration #4. Acute kidney injury likely related to ATN, improving with improvement of low blood pressure #5. Acute exacerbation of chronic congestive heart failure with systolic dysfunction, known to have very poor ejection fraction. 30-35% #6. Elevated troponins rule out non-ST elevated myocardial infarction #7. Recent admission for acute exacerbation of systolic CHF, acute kidney injury #8. History of COPD on chronic oxygen #9. Former smoker #10. History of bladder cancer, patient's TURBT in March 2019 had to be aborted related to hypotension. Follows with Dr. Calvert #11. History of coronary artery disease with previous bypass grafting #12. Hypotension requiring vasopressors/norepinephrine intermittently. #13. Previous myocardial infarction #14. Ischemic cardiomyopathy with the EF of 30-35% #15. Chronic anemia #16. History of benign prostatic hypertrophy #17 persistent positive blood cultures, rule out endocarditis, transesophageal echo is recommended, his transthoracic echo showed no evidence of vegetations. Cardiology was consulted yesterday, yet to be seen for possible JOSE. Recommendation: Continue antibiotics, patient is presently on nafcillin as per infectious disease. Hold diuretics today. Continue norepinephrine for adequate blood pressure hopefully better renal perfusion. Transesophageal echocardiogram tomorrow to document or rule out endocarditis. Reviewed ultrasound of the chest, no evidence of significant amount of fluid to consider safe thoracentesis. Continue to monitor renal profile closely I believe the patient has a combination of acute lung injury and possibly cardiorenal syndrome. Again he has very poor LV function. Continue oxygen and titrate to SaO2 above 90%. Overall prognosis is extremely poor and guarded, we'll continue to follow, and we will keep the patient in the ICU. Time with Patient: Less than 30
--- NOTE | 2019-05-26 12:06 | P.PN ---
Subjective 79-year-old pleasant gentleman came in with the shortness of breath and is being treated for sepsis possible source being pneumonia. Patient to sepsis improved significantly patient is off Levophed patient does have significant pulmonary edema from IV fluids and patient does have congestive heart failure ejection fraction at that to 35% received IV Lasix and this can you IV fluids will closely monitor his blood pressure patient normally has low blood pressure presently on Zosyn at this time. Being followed by multiple consultants including infectious disease animal care service worker. 05/23/2019 Patient wishes daily stable patient is receiving IV Lasix because of his pulmonary edema. Patient does have bacteremia with the staph aureus probably the source of infection rather pneumonia or urinary tract infection patient will be switched to nafcillin discussed with infectious disease. Patient the has blood cultures that are positive second set of blood cultures are positive because of which echocardiogram will be obtained to rule out any endocarditis. Patient had low-grade fever yesterday we'll repeat blood cultures again today. Creatinine improved from 1.48 to 1.16. 05/24/2019 Patient's fevers resolved but blood cell count is improving. But patient remains bacteremic. Echocardiogram did not show any valvular lesions 9 DT astemizole which was replaced I had a lengthy discussion with the patient regarding her overall goals of care patient is agreeable for DO NOT RESUSCITATE but unsure whether he can make his own duration I'll discuss with the family regarding this. Patient prognosis is extremely poor because of possible endocarditis, bladder cancer, systolic heart failure patient is more appropriate for hospice and comfort care same thing was discussed the patient will also discuss with the family. Patient is quite a bit fatigued and he believes he is not in a 10 out of the hospital. 05/25/2019 patient is not doing well patient the blood cultures were positive from will repeat blood cultures tomorrow creatinine started going up patient blood pressure is still unstable patient is back on Levophed is still getting IV fluids patient does have pulmonary edema prognosis is extremely poor, will discuss with the family regarding hospice. Was unable to reach family yesterday 05/26/2019 Patient looks bit better today off levothyroid, patient today appears to able to my dictation because of which I had lengthy discussion with him regarding DO NOT RESUSCITATE patient wants to be full code because of which I do not believe it's reasonable to discuss regarding comfort care and hospice at this time. Although I did discuss with his regarding comfort care and hospice yesterday and patient's wanted to talk to me today in person as patient now wants everything to be done at believe that discussion is inappropriate and the patient will be continued on present treatment. Pulmonology believes patient may have an empyema. Patient most probably has an otitis and will need a JOSE cardiology was consulted for that. Repeat blood cultures will be obtained for today and tomorrow patient can use to have persistent bacteremia his prognosis although remains extremely poor Constitutional: Looks less fatigued and looks bit better Cardio vascular: denied any chest pain, palpitations Gastrointestinal denied any nausea vomiting Pulmonary: Does have shortness of breath Neurologic denied any new focal deficits All inpatient medications were reviewed and appropriate changes in these medications as dictated in the interval history and assessment and plan. Objective - Vital Signs Vital signs: Vital Signs Temp 99.0 F 05/26/19 08:00 Pulse 87 05/26/19 11:00 Resp 16 05/26/19 11:00 BP 104/45 05/26/19 11:00 Pulse Ox 97 05/26/19 11:00 Intake & Output 05/25/19 05/26/19 05/26/19 18:59 06:59 18:59 Intake Total 289.439 1603.807 731.065 Output Total 370 295 117 Balance 599.977 913.807 614.065 Weight 79.3 kg Intake: IV 850 800 390 0.9 550 600 200 Nafcillin 2 gm In 200 200 190 Dextrose 5% in Water 100 ml @ 50 mls/hr IVPB Q4HR [facility] Rx#:[id number] Potassium Chloride 10 meq 100 In Water For Injection 1 100ml.bag @ 100 mls/hr IVPB Q1H [facility] Rx#: [id number] Intake, IV Titration 119.977 208.807 91.065 Amount Nafcillin 2 gm In 70 Dextrose 5% in Water 100 ml @ 50 mls/hr IVPB Q4HR [facility] Rx#:[id number] Norepinephrine 4 mg In 19.977 138.807 91.065 Sodium Chloride 0.9% 250 ml @ 0.05 MCG/KG/MIN 13. 826 mls/hr IV .[id number] [facility] Rx#:[id number] Potassium Chloride 10 meq 100 In Water For Injection 1 100ml.bag @ 100 mls/hr IVPB Q1H [facility] Rx#: [id number] Oral 200 250 Output: Urine 370 295 117 Other: Voiding Method Indwelling Catheter Indwelling Catheter - Exam PHYSICAL EXAMINATION: GENERAL: The patient is alert and oriented x3, much less fatigued today looks bit better. Well developed, well nourished. HEENT: Pupils are round and equally reacting to light. EOMI. No scleral icterus. No conjunctival pallor. Normocephalic, atraumatic. No pharyngeal erythema. No thyromegaly. CARDIOVASCULAR: S1 and S2 present. No murmurs, rubs, or gallops. Does have elevated JVD PULMONARY: Clear to auscultation today no wheezing ABDOMEN: Soft, nontender, nondistended, normoactive bowel sounds. No palpable organomegaly. MUSCULOSKELETAL: No joint swelling or deformity. EXTREMITIES: No cyanosis, clubbing, or pedal edema. NEUROLOGICAL: Gross neurological examination did not reveal any focal deficits. SKIN: No rashes. - Labs CBC & Chem 7: 05/26/19 05:53 05/26/19 05:53 Labs: Abnormal Lab Results - Last 24 Hours (Table) 05/26/19 05/26/19 Range/Units 05:53 05:53 WBC 12.7 H (3.8-10.6) k/uL RBC 3.57 L (4.30-5.90) m/uL Hgb 10.4 L (13.0-17.5) gm/dL Hct 32.7 L (39.0-53.0) % RDW 16.3 H (11.5-15.5) % Plt Count 90 L D (150-450) k/uL Neutrophils # 10.8 H (1.3-7.7) k/uL Sodium 132 L (137-145) mmol/L Chloride 95 L (98-107) mmol/L BUN 70 H (9-20) mg/dL Creatinine 2.33 H (0.66-1.25) mg/dL Glucose 117 H (74-99) mg/dL Calcium 7.5 L (8.4-10.2) mg/dL Microbiology - Last 24 Hours (Table) 05/25/19 05:56 Blood Culture - Preliminary Blood No Growth after 24 hours 05/23/19 10:46 Blood Culture Gram Stain - Final Blood Blood Culture - Final Staphylococcus aureus 05/24/19 04:55 Blood Culture Gram Stain - Preliminary Blood Blood Culture - Preliminary Presumptive Staph aureus Assessment and Plan Plan: Sepsis, septic shock: shock improved patient is still septic and bacteremic with staph aureus possible source being endocarditis which cannot be ruled out echocardiac gram did not show any endocarditis but will require JOSE for that, UTI or pneumonia doesn't appear to be source of infection. Patient will be started on nafcillin patient has MSSA actively anemia which is persistent bacteremia. Because of his recurrent recent intercurrent hospitalizations patient may have had bacteremia from IV lines. Patient is presently on nafcillin remains to have persistent bacteremia. Patient is back on norepineph rine and receiving IV fluids per does have pulmonary edema. Pulmonary believes patient may have right-sided empyema. -Acute hypoxic respiratory failure secondary to congestive heart failure exacerbation, patient blood pressure is low because of which patient received IV fluids patient does have significant crackles on exam receiving Lasix on as- needed basis whenever he can tolerate. -Lactic acidosis secondary to sepsis resolved now patient is presently receiving Lasix -Acute renal failure secondary to prerenal azotemia as well as acute tubular necrosis creatinine improved started going up again because of hypotension, sepsis and congestive heart failure -Hypervolemic hyponatremia secondary to congestive heart failure improving with Lasix. -Congestive heart failure chronic systolic dysfunction ejection fraction of 30- 35% with acute exacerbation, patient has ischemic cardiomyopathy -COPD chronic hypercapnic respiratory failure on oxygen at home. -Possibility of bladder cancer bladder cancer, following follows up with urology and a recent TURP which was incomplete and aborted secondary to hypotension -Coronary artery disease with previous CABG patient has recent cardiac catheterization which did not show any atherosclerotic occlusive disease that need intervention. -Hypertension -Hypothyroidism: Continue with levothyroxine -Benign prostatic hypertrophiy. -DVT prophylaxis with subcutaneous heparin twice a day
--- NOTE | 2019-05-26 19:43 | CONS ---
CONSULTATION CHIEF COMPLAINT: Sepsis, rule out endocarditis. This is an 79-year-old gentleman that has been in the hospital since 05/21/2019. He has multiple medical problems including cardiomyopathy, dyslipidemia, hypothyroidism, coronary artery disease, osteoarthritis; who is admitted to the hospital primarily with fever, chills and sputum. He had a chest x-ray that showed infiltrate. Patient had elevated lactic acid and was hypotensive and was admitted to hospital with the same. He also had renal insufficiency and had mild congestive heart failure also. I have been consulted because the Infectious Disease doctor wanted him to have a JOSE to rule out endocarditis as his blood cultures have been positive for Staph aureus. His blood culture was positive from the initial blood samples, but subsequent blood culture on May 25 was negative. The patient at the time of my evaluation appears a little confused and has a sitter at bedside. He is not able to give any meaningful information to me. I reviewed his chart and I reviewed prior consultations. CURRENT MEDICATIONS: Include Rocephin, Zoloft, K-Dur, Protonix, Synthroid, Imdur, Lasix, Florinef, aspirin. ALLERGIES: To IV DYE. Family history, social history and review of systems I am unable to obtain from the patient who is confused. PAST MEDICAL HISTORY: Significant for coronary artery disease, osteoarthritis, bypass surgery. EXAM: Heart rate is 87 beats per minute, blood pressure is 104/45, respiratory rate is 18. Chest exam reveals good air entry. I do not hear any crackles or rhonchi. Heart exam reveals first and second heart sounds. Systolic murmur at the apex. Abdomen is soft. Exam of extremities reveals 1+ edema. Peripheral pulses are felt. The patient had a cardiac catheterization in April and was advised medical therapy and an echocardiogram on this admission that revealed moderate to severe LV dysfunction with mild aortic regurgitation. There was no vegetation noted. ASSESSMENT: 1. Staphylococcus aureus septicemia. 2. Ischemic cardiomyopathy. 3. Coronary artery disease, status post coronary artery bypass graft. PLAN: Patient is currently somewhat confused. Whenever he is more alert and more stable medically we can definitely perform a transesophageal echo on him. We will follow him and decide on the timing. MMODL / IJN: [id number] /
[2019-05-26] MEDS: SERTRALINE 50 MG TAB PO SCH (21:40)
[2019-05-26] MEDS: ATORVASTATIN 20 MG TAB PO SCH (21:40)
[2019-05-26] MEDS: MONTELUKAST 10 MG TAB PO SCH (21:40)
--- NOTE | 2019-05-26 23:10 | PN ---
PROGRESS NOTE DATE OF SERVICE: 05/26/2019. REASON FOR FOLLOWUP: MSSA bacteremia with concern of possible endovascular source. INTERVAL HISTORY: The patient is currently afebrile. The patient overall pressor requirement has decreased. The patient breathing slightly comfortable. Very minimal cough. No nausea, no vomiting. No abdominal pain. No diarrhea. PHYSICAL EXAMINATION: Blood pressure 111/80 with a pulse of 90, temperature is 96.4. He is 96% on 2 L nasal cannula. General description is an elderly male lying in bed in no distress. Respiratory system: Unlabored breathing with decreased breath sounds in the bases. No wheeze. Heart S1, S2. Regular rate and rhythm. ABDOMEN: Soft, no tenderness. LABS: Hemoglobin is 10.4, white count 12.7, and creatinine of 2.33. Blood culture repeat has been negative so far done on May 25. DIAGNOSTIC IMPRESSION AND PLAN: Patient with MSSA bacteremia in view of the persistent bacteria with concern for possible endovascular source for which the Cardiology has been consulted. Keep the patient on Nafcillin. The patient did have slight jump in his creatinine and is being monitored closely by Nephrology. Continue supportive care. MMODL / IJN: [id number] /
[2019-05-27] MEDS: NAFCILLIN 2 GM in DEXTROSE 5% IN WATER 100 ML IVPB SCH ×10 (04:36→20:45)
[2019-05-27] MEDS: SODIUM CHLORIDE 0.9% 1,000 ML IV SCH ×2 (04:37→17:08)
[2019-05-27 05:09] LABS: Calcium 7.2 mg/dL (8.4-10.2)
[2019-05-27 05:13] LABS: Anisocytosis Slight; Basophils % (A) 1 %; Eosinophils # (A) 0.1 k/uL (0-0.7); Eosinophils % (A) 1 %; HCT 28.4 % (39.0-53.0); HGB 9.1 gm/dL (13.0-17.5); Hypochromasia Slight; Lymphocytes # (A) 0.8 k/uL (1.0-4.8); Lymphocytes % (A) 9 %; MCH 29.3 pg (25.0-35.0); MCHC 31.9 g/dL (31.0-37.0); MCV 91.7 fL (80.0-100.0); Mean Platelet Volume 9.2; Monocytes # (A) 0.3 k/uL (0-1.0); Monocytes % (A) 3 %; Neutrophils % (A) 85 %; Platelet Count 88 k/uL (150-450); RDW 16.4 % (11.5-15.5); WBC 9.4 k/uL (3.8-10.6)
[2019-05-27] MEDS: LEVOTHYROXINE 112 MCG TAB PO SCH (06:20)
[2019-05-27] MEDS: PANTOPRAZOLE 40 MG TABLET PO SCH (06:20)
[2019-05-27] MEDS: MIDODRINE 5 MG TAB PO SCH ×3 (06:20→17:07)
--- NOTE | 2019-05-27 07:54 | XR ---
EXAMINATION TYPE: XR chest 1V portable DATE OF EXAM: 05/27/2019 CLINICAL HISTORY: Difficulty breathing progress study. CHF and pneumonia. TECHNIQUE: Single AP portable semiupright view of the chest is obtained. COMPARISON: Chest x-ray from one day earlier and older studies. FINDINGS: Overlying sternal wires are redemonstrated. Cardiac silhouette size is stable and upper li mits of normal. Bibasilar opacities remain present. Upper lungs are clear without pneumothorax. Homer us structures are intact. IMPRESSION: Overall stable findings, persistent right greater than left bibasilar acute infiltrate and/or atelectasis and right greater than left small bilateral pleural effusions.
[2019-05-27] MEDS: SYMBICORT 160-4.5 MCG INHALER INHALATION SCH ×2 (08:47→19:12)
[2019-05-27] MEDS: IPRATROPIUM-ALBUTEROL 3 ML NEB INHALATION SCH ×3 (08:47→19:11)
[2019-05-27] MEDS: OXYBUTYNIN XL 5 MG TAB.ER.24 PO SCH (09:05)
[2019-05-27] MEDS: ASPIRIN 81 MG PO SCH (09:05)
[2019-05-27] MEDS: NYSTATIN 100,000 UNIT/ML SUSP 500,000 UNIT/5 ML CUP PO SCH ×4 (09:05→20:53)
[2019-05-27] MEDS: FLUDROCORTISONE 0.1 MG TAB PO SCH (09:05)
--- NOTE | 2019-05-27 09:19 | P.PN ---
Subjective Progress Note Date: 05/27/19 This is a 79-year-old gentleman who has been in this hospital since 05/21/2019. Patient is admitted with the diagnosis of cardiac myopathy, dyslipidemia, hypothyroidism, coronary artery disease and also with complaints of fever or chills. His blood cultures are positive for staph aureus. A JOSE examination is requested because of bacteremia. Patient was seen by Dr. Gayle and felt that patient was confused yesterday. He would consider and patient is more stable. Patient is alert and doesn't appear to be in acute distress at this time. Still seemed to be somewhat confused. His last blood culture apparently was negative. I will discuss with Dr. Gayle about timing of the JOSE. Meanwhile continue with antibiotic therapy Objective - Vital Signs Vital signs: Vital Signs Temp 97.3 F L 05/27/19 04:00 Pulse 86 05/27/19 07:00 Resp 20 05/27/19 07:00 BP 116/66 05/27/19 07:00 Pulse Ox 100 05/27/19 07:00 Intake & Output 05/26/19 05/27/19 05/27/19 18:59 06:59 18:59 Intake Total 1410.818 0678.305 73.134 Output Total 387 407 35 Balance 0386.877 2262.305 38.134 Weight 79.8 kg Intake: IV 1120 950 70 0.9 870 700 70 Nafcillin 2 gm In 250 250 Dextrose 5% in Water 100 ml @ 50 mls/hr IVPB Q4HR [facility] Rx#:[id number] Intake, IV Titration 191.507 211.305 3.134 Amount Norepinephrine 4 mg In 191.507 211.305 3.134 Sodium Chloride 0.9% 250 ml @ 0.05 MCG/KG/MIN 13. 826 mls/hr IV .[id number] [facility] Rx#:[id number] Oral 250 270 Output: Urine 387 405 35 Stool 2 Other: Voiding Method Indwelling Catheter Indwelling Catheter # Bowel Movements 2 - Exam GENERAL EXAM: Patient is alert and somewhat confused HEENT: Normocephalic. Normal reaction of pupils, equal size, normal range of extraocular motion. No erythema or exudates in the throat. NECK: No masses, no nuchal rigidity. CHEST: No chest wall deformity. LUNGS: Decreased air entry HEART: S1 and S2 normal with no audible mumurs or gallops. Regular rhythm, femorals equal on both sides.. ABDOMEN: No hepatosplenomegaly, normal bowel sounds, no guarding or rigidity. SKIN: No rashes CENTRAL NERVOUS SYSTEM: No gross deficits EXTREMITIES: No cyanosis, clubbing or edema. - Labs CBC & Chem 7: 05/27/19 04:37 05/27/19 04:46 Labs: Abnormal Lab Results - Last 24 Hours (Table) 05/26/19 05/27/19 05/27/19 Range/Units 18:45 04:37 04:46 RBC 3.10 L (4.30-5.90) m/uL Hgb 9.1 L (13.0-17.5) gm/dL Hct 28.4 L (39.0-53.0) % RDW 16.4 H (11.5-15.5) % Plt Count 88 L (150-450) k/uL Neutrophils # 8.0 H (1.3-7.7) k/uL Lymphocytes # 0.8 L (1.0-4.8) k/uL Sodium 131 L (137-145) mmol/L Chloride 97 L (98-107) mmol/L Carbon Dioxide 20 L (22-30) mmol/L BUN 75 H (9-20) mg/dL Creatinine 2.65 H (0.66-1.25) mg/dL Glucose 132 H (74-99) mg/dL Calcium 7.2 L (8.4-10.2) mg/dL U Random Total Protein 99 H (<12) mg/dL Microbiology - Last 24 Hours (Table) 05/25/19 05:56 Blood Culture - Preliminary Blood No Growth after 48 hours 05/26/19 05:53 Blood Culture Gram Stain - Preliminary Blood 05/26/19 05:53 Blood Culture - Final Blood 05/24/19 04:55 Blood Culture Gram Stain - Final Blood Blood Culture - Final Staphylococcus aureus Assessment and Plan (1) Staphylococcus aureus bacteremia Current Visit: Yes Status: Acute Code(s): R78.81 - BACTEREMIA SNOMED Code(s): 787837248 (2) Cardiomyopathy Current Visit: Yes Status: Acute Code(s): I42.9 - CARDIOMYOPATHY, UNSPECIFIED SNOMED Code(s): 21258407 (3) Congestive heart failure Current Visit: Yes Status: Acute Code(s): I50.9 - HEART FAILURE, UNSPECIFIED SNOMED Code(s): 22346776 (4) Pleural effusion Current Visit: Yes Status: Acute Code(s): J90 - PLEURAL EFFUSION, NOT ELSEWHERE CLASSIFIED SNOMED Code(s): 24140072 (5) Pneumonia Current Visit: Yes Status: Acute Code(s): J18.9 - PNEUMONIA, UNSPECIFIED ORGANISM SNOMED Code(s): 290458207 (6) Sepsis Narrative/Plan: Continue the antibiotic therapy as outlined by infectious disease specialist. A JOSE examination will be done by Dr. Gayle Current Visit: Yes Status: Acute Code(s): A41.9 - SEPSIS, UNSPECIFIED ORGANISM SNOMED Code(s): 70589006
--- NOTE | 2019-05-27 10:24 | P.PN ---
Subjective Progress Note Date: 05/27/19 Principal diagnosis: Acute septic shock secondary to right lower lobe pneumonia, this is likely healthcare acquired pneumonia and gram-positive bacteremia. MSSA. This is a 79-year-old white male patient of Dr. Wallace, with extensive medical history, was recently hospitalized for acute exacerbation of systolic congestive heart failure with an EF of 30-35%, acute hypoxic failure related to CHF, acute on chronic renal failure. Following his discharge on 05/16/2019 patient went to [facility] for rehab. On 05/20/2019 patient was brought into the hospital for evaluation of worsening shortness of breath, fever chills, increased sputum production. Denied any nausea or vomiting, patient also complained of penile pain, and dysuria. Patient does have a history of COPD on home oxygen at 4 L. Other medical history includes CAD with history of bypass grafting, bladder c ancer, patient follows with Dr. Calvert from urology, hyperlipidemia, previous myocardial infarction, osteoarthritis, sleep apnea on CPAP therapy, prostate disorder, hypothyroidism, chronic back pain, and previous history of smoking. Chest x-ray was completed showing small bilateral pleural effusions, bibasilar atelectasis and diffuse interstitial and hazy opacities with the possibility of interstitial pneumonia, and fluid overload. Lab work was positive for leukocytosis, white blood cell count is 31.3, hemoglobin is 7.4, patient had 23% bandemia, correlation profile was within normal limits, serum sodium was 133, potassium 3.4, chloride was 92, CO2 is 31, BUN was 61, creatinine is 2.42. La ctic acid was 4.8 patient was given 2 L of IV fluids, this morning his lactic acid is 2.8, troponins were positive at 0.173, and 0.121. [place] [address], urinalysis showed large amount of blood, 1+ protein, large amount of leuk trase, rare white blood cell and rare bacteria, doubt underlying urinary tract infection. Influenza screen was negative. Patient was initially admitted to stepdown floor, this morning his febrile, with a temp of 102.2, patient is tachycardic the heart rate up to 120 BPM, blood pressures are marginal, 99/71, and subsequent one was systolic in the 80s. Patient was given additional liter bolus, broad-spectrum antibiotics were started in the form of Zosyn. Blood cul tures were sent on admission, we will obtain additional set of blood cultures, urinalysis, sputum culture. Patient is being transferred to the intensive care unit. Reevaluated today on 05/22/2019, patient remains in the ICU, I saw him yesterday, and arrange for the transferred to the ICU. During my evaluation, the patient was noted to be septic, he was transferred to the ICU and received a total of 3 L of fluids, and he was placed on a short. This time on norepinephrine for low blood pressure. Patient was on norepinephrine for few hours, today he is hemodynamically stable, feeling a bit better, chest x-ray clearly shows evidence of right lower lobe pneumonia and interstitial edema bilaterally. Hence the patient will be given a dose of Lasix, and his IV fluids will be cut down to 50 mL per hour. Blood cultures are positive for gram-positive cocci, hence vancomycin was added. In the meantime we will continue Zosyn until the final identification and sensitivity noted from the blood cultures. WBC count today is down to 23.8 hemoglobin is 8.6 electrolytes are normal BUN is 53 creatinine is 1.48, improving compared to 2.42 on admission. Troponin was noted to be 0.069. Potassium is 3.5 be corrected as per protocol. Reevaluated today on 05/23/2019, patient remains in the ICU, off norepinephrine, hemodynamically stable, urine output is marginal but improving with diuretics, and he was given a dose of Lasix earlier today. Overall the patient is slightly better compared to his presentation. Chest x-ray continues to showsome component of congestive heart failure, and some component of patchy infiltrates in the right lower lobe. Small pleural effusion is noted right greater than left.WBC count remains elevated at 25.2 hemoglobin is 10.3. Electrodes are normal BUN is improving creatinine is also improving down to 1.16.patient is off norepinephrine today. Troponin level is slightly elevated at 0.069, Patient was reevaluated today on 05/24/2019, remains in the ICU, off norepinephrine, feeling better, breathing easier, however his chest x-ray continues to show some interstitial edema Lasix was given 40 mg IV push times one. Cut down his fluid down to 50 mL per hour. Clinically the patient is feeling better, breathing a lot easier, chest x-ray is still concerning, and his blood pressure remains marginal but he normally runs a low blood pressure. WBC down to 20.9 his electrolytes are normal except for low potassium being corrected. BUN is 48 creatinine 1.18. His blood cultures came back positive for MSSA. Patient is now on nafcillin as per infectious disease on the case. Other antibiotics have been discontinued. Reevaluated today on 05/25/2019, patient remains off norepinephrine, blood pressure remains low marginal. Responds well to IV Lasix given on a daily basis as needed. IV fluids remains at 50 mL per hour. Continues to have positive blood cultures, and a transesophageal echocardiogram should be done by cardiology. His blood cultures remain positive since admission. Patient remains on antibiotics as per infectious disease on the case. Chest x-ray showed right lower lobe consolidation, and possibly a small right-sided pleural effusion. Minimal effusion noted on the left. WBC count is coming down to 15.9 it was quite elevated on admission. It was 20.9 yesterday and a 25.22 days ago. His electrolytes are normal BUN however is up to 59, and creatinine is up to 1.35, we'll continue cautious hydration and hold on diuretics. Patient does have poor LV function and the findings on his renal status could be related to diuretics as well as cardiorenal in nature. Reevaluated today on 05/26/2019, patient is back on norepinephrine today at 0.06 mcg/kg/m. Patient had low blood pressure last night, low urine output, hence he is now back on norepinephrine, and he is receiving IV fluid at 70 mL per hour. Will hold on any diuretics today. Patient continues to have positive blood cultures, initiated a cardiology consultation yesterday, not seen yet by cardiology, patient will definitely require transesophageal echocardiogram to document endocarditis and to explain his persistent positive blood cultures. Ultrasound of the chest did not show enough pleural effusion on the right side to consider safe thoracentesis. Hence no thoracentesis will be done. His transthoracic echocardiogram did show evidence of poor LV function with ejection fraction of 30-35 percent. And hopefully a transesophageal echo could be done tomorrow. Clinically the patient is slightly confused, he is not in any form of respiratory distress. Chest x-ray continues to show air space disease in the right lower lobe and small tiny right-sided pleural effusion. Also there is evidence of mild pulmonary edema. On 05/27/2019 patient seen in follow-up in the intensive care unit. He is lethargic, but easily arousable, denies any acute distress, currently on 4 L of oxygen per nasal cannula, pulse ox of 98%, afebrile, he remains on small dose of levothyroid at 2 mics per minute, and maintenance IV fluids 0.9 normal saline at a rate of 75 ML per hour, Currently on nafcillin for MSSA bacteremia, was also treated with a combination of Zosyn, Levaquin and later with cefepime which have all been discontinued now for evidence of Klebsiella pneumonia in the urine culture. No fever or chills, no signs of respiratory distress, follow-up blood cultures starting on 05/25, 05/26 have been negative. Cardiology is following and will decide on the timing of the JOSE. His chest x-ray has been reviewed showing persistent right greater than left bibasilar infiltrates and/or atelectasis and bilateral pleural effusions right greater than left. Patient is maintaining stable oxygenation, he normally wears 3 L of oxygen at home, he is currently on 4 which can actually be titrated down, today's labs have been reviewed, showing white blood cell count is trending, down to 9.4 on today's labs from 12.7, hemoglobin is 9.1, serum sodium is 131, potassium is 4.0, chloride is 97, CO2 is 20, BUN is 75, creatinine is 2.65. Magaña catheter is in, draining clear urine, ranging 35-50 ML per hour. Patient has a fecal management system as in with liquid output and C. diff was negative. Objective - Vital Signs Vital signs: Vital Signs Temp 98.2 F 05/27/19 08:00 Pulse 93 05/27/19 09:00 Resp 12 05/27/19 09:15 BP 122/50 05/27/19 09:15 Pulse Ox 98 05/27/19 09:15 Intake & Output 05/26/19 05/27/19 05/27/19 18:59 06:59 18:59 Intake Total 9828.557 6333.305 313.134 Output Total 387 407 125 Balance 0338.142 5198.305 188.134 Weight 79.8 kg Intake: IV 1120 950 310 0.9 870 700 210 Nafcillin 2 gm In 250 250 100 Dextrose 5% in Water 100 ml @ 50 mls/hr IVPB Q4HR [facility] Rx#:[id number] Intake, IV Titration 191.507 211.305 3.134 Amount Norepinephrine 4 mg In 191.507 211.305 3.134 Sodium Chloride 0.9% 250 ml @ 0.05 MCG/KG/MIN 13. 826 mls/hr IV .[id number] [facility] Rx#:[id number] Oral 250 270 Output: Urine 387 405 125 Stool 2 Other: Voiding Method Indwelling Catheter Indwelling Catheter # Bowel Movements 2 - Exam GENERAL EXAM: Somnolent, but easily arousable, 79-year-old white male, currently on 4L of oxygen with a pulse ox of 99%, no signs of distress HEAD: Normocephalic/atraumatic. EYES: Normal reaction of pupils, equal size. Conjunctiva pink, sclera white. NOSE: Clear with pink turbinates. THROAT: No erythema or exudates. NECK: No masses, no JVD, no thyroid enlargement, no adenopathy. CHEST: No chest wall deformity. Symmetrical expansion. LUNGS: Diminished air entry at the bases with diffuse crackles at bilateral lower lobes, no significant rhonchi or wheezing CVS: Regular rate and rhythm, normal S1 and S2, no gallops, no murmurs, no rubs ABDOMEN: Soft, nontender. No hepatosplenomegaly, normal bowel sounds, no guarding or rigidity. EXTREMITIES: No clubbing, no edema, no cyanosis, 2+ pulses and upper and lower extremities. MUSCULOSKELETAL: Muscle strength and tone normal. SPINE: No scoliosis or deformity SKIN: No rashes CENTRAL NERVOUS SYSTEM: Alert and oriented -2. No focal deficits, tone is normal in all 4 extremities. PSYCHIATRIC: Alert and oriented -2. Appropriate affect. Intact judgment and insight. - Labs CBC & Chem 7: 05/27/19 04:37 05/27/19 04:46 Labs: Abnormal Lab Results - Last 24 Hours (Table) 05/26/19 05/27/19 05/27/19 Range/Units 18:45 04:37 04:46 RBC 3.10 L (4.30-5.90) m/uL Hgb 9.1 L (13.0-17.5) gm/dL Hct 28.4 L (39.0-53.0) % RDW 16.4 H (11.5-15.5) % Plt Count 88 L (150-450) k/uL Neutrophils # 8.0 H (1.3-7.7) k/uL Lymphocytes # 0.8 L (1.0-4.8) k/uL Sodium 131 L (137-145) mmol/L Chloride 97 L (98-107) mmol/L Carbon Dioxide 20 L (22-30) mmol/L BUN 75 H (9-20) mg/dL Creatinine 2.65 H (0.66-1.25) mg/dL Glucose 132 H (74-99) mg/dL Calcium 7.2 L (8.4-10.2) mg/dL U Random Total Protein 99 H (<12) mg/dL Microbiology - Last 24 Hours (Table) 05/25/19 05:56 Blood Culture - Preliminary Blood No Growth after 48 hours 05/26/19 05:53 Blood Culture Gram Stain - Preliminary Blood 05/26/19 05:53 Blood Culture - Final Blood 05/24/19 04:55 Blood Culture Gram Stain - Final Blood Blood Culture - Final Staphylococcus aureus Assessment and Plan Plan: Assessment: #1. Acute septic shock secondary to right lower lobe pneumonia, likely healthcare acquired pneumonia and gram-positive bacteremia secondary to MSSA. There is also evidence of urinary tract infection with urine cultures positive for Klebsiella pneumonia #2. Acute on chronic hypoxemic respiratory failure related to the above #3. Lactic acidosis improving with IV hydration #4. Acute kidney injury likely related to ATN #5. Acute exacerbation of chronic congestive heart failure with systolic dysfunction with a known impaired left ventricular systolic function with an EF of 30-35% #6. Elevated troponins rule out non-ST elevated myocardial infarction #7. Recent admission for acute exacerbation of systolic CHF, acute kidney injury #8. History of COPD on chronic oxygen #9. Former smoker #10. History of bladder cancer, patient's TURBT in March 2019 had to be aborted related to hypotension. Follows with Dr. Calvert #11. History of coronary artery disease with previous bypass grafting #12. Hypertension #13. Previous myocardial infarction #14. Ischemic cardiomyopathy with the EF of 30-35% #15. Chronic anemia #16. History of benign prostatic hypertrophy #17. Persistent positive blood cultures with concern for endocarditis, JOSE is recommended, his transthoracic echo showed no evidence of vegetation, cardiology is following Plan: We will decrease the IV fluids down to KVO, we'll add oral hydrocortisone 20 mg in the morning, and 10 mg at night, continue midodrine, stop fludrocortisone, wean Levophed. Today's chest x-ray has been reviewed still showing significant airspace disease bilaterally, with evidence of bilateral pleural effusions, right greater than left, ultrasound from on 05/25/2019 showed 8.1 cm pocket on the right and a 3.3 cm pocket on the left, will consider IV diuretics likely tomorrow, today breathing and oxygenation are stable. Continue with antibiotics per ID service recommendation. Close hemodynamic monitoring, will prognosis is guarded in view of multiple comorbidities, will await further recommendations from cardiology in terms of the timing of the JOSE. We'll continue to follow. I performed a history & physical examination of the patient and discussed their management with my nurse practitioner, Taisha Saldaña. I reviewed the nurse practitioner's note and agree with the documented findings and plan of care. Lung sounds are positive for diminished with rales. The findings and the impression was discussed with the patient. I attest to the documentation by the nurse practitioner. Time with Patient: Less than 30
[2019-05-27] MEDS ORDERED: FUROSEMIDE 10 MG/ML 4 ML VIAL IV STA (10:52)
--- NOTE | 2019-05-27 11:21 | P.PN ---
Subjective Patient is seen in follow-up for acute kidney injury. Renal function continues to worsen. Creatinine 2.65 today. He is nonoliguric. Currently maintained on normal saline at 70 mL an hour. Patient has systolic CHF with ejection fraction of 30-35%. Does have edema in the lower extremities. No vomiting or diarrhea. Vital signs are stable. General: The patient appeared well nourished and normally developed. HEENT: Head exam is unremarkable. Neck is without jugular venous distension. LUNGS: Breath sounds decreased. HEART: Rate and Rhythm are regular. First and second heart sounds normal. No murmurs, rubs or gallops. ABDOMEN: Abdominal exam reveals normal bowel sounds. Non-tender and non- distended. No evidence of peritonitis. EXTREMITITES: 1+ edema. Objective - Vital Signs Vital signs: Vital Signs Temp 98.2 F 05/27/19 08:00 Pulse 89 05/27/19 11:00 Resp 17 05/27/19 11:00 BP 92/69 05/27/19 11:00 Pulse Ox 97 05/27/19 11:00 Intake & Output 05/26/19 05/27/19 05/27/19 18:59 06:59 18:59 Intake Total 5655.758 1163.305 402.120 Output Total 387 407 155 Balance 1014.138 8812.305 247.120 Weight 79.8 kg Intake: IV 1120 950 380 0.9 870 700 280 Nafcillin 2 gm In 250 250 100 Dextrose 5% in Water 100 ml @ 50 mls/hr IVPB Q4HR [facility] Rx#:[id number] Intake, IV Titration 191.507 211.305 22.120 Amount Norepinephrine 4 mg In 191.507 211.305 22.120 Sodium Chloride 0.9% 250 ml @ 0.05 MCG/KG/MIN 13. 826 mls/hr IV .[id number] [facility] Rx#:[id number] Oral 250 270 Output: Urine 387 405 155 Stool 2 Other: Voiding Method Indwelling Catheter Indwelling Catheter # Bowel Movements 2 - Labs CBC & Chem 7: 05/27/19 04:37 05/27/19 04:46 Labs: Abnormal Lab Results - Last 24 Hours (Table) 05/26/19 05/27/19 05/27/19 Range/Units 18:45 04:37 04:46 RBC 3.10 L (4.30-5.90) m/uL Hgb 9.1 L (13.0-17.5) gm/dL Hct 28.4 L (39.0-53.0) % RDW 16.4 H (11.5-15.5) % Plt Count 88 L (150-450) k/uL Neutrophils # 8.0 H (1.3-7.7) k/uL Lymphocytes # 0.8 L (1.0-4.8) k/uL Sodium 131 L (137-145) mmol/L Chloride 97 L (98-107) mmol/L Carbon Dioxide 20 L (22-30) mmol/L BUN 75 H (9-20) mg/dL Creatinine 2.65 H (0.66-1.25) mg/dL Glucose 132 H (74-99) mg/dL Calcium 7.2 L (8.4-10.2) mg/dL U Random Total Protein 99 H (<12) mg/dL Microbiology - Last 24 Hours (Table) 05/25/19 05:56 Blood Culture - Preliminary Blood No Growth after 48 hours 05/26/19 05:53 Blood Culture Gram Stain - Preliminary Blood 05/26/19 05:53 Blood Culture - Final Blood 05/24/19 04:55 Blood Culture Gram Stain - Final Blood Blood Culture - Final Staphylococcus aureus Assessment and Plan Plan: Assessment: 1. Acute kidney injury secondary to ATN secondary to sepsis. Creatinine 2.65 today. Baseline creatinine is near 1. Rule out GN. UPC 2.47 g. 2. Hyponatremia secondary to acute kidney injury. Patient is hypervolemic. 3. Lower extremity edema. 4. Staph aureus bacteremia maintained on IV antibiotics. Endocarditis being rule out. JOSE pending. 5. Metabolic acidosis secondary to acute kidney injury. 6. Systolic CHF with ejection fraction of 30-35%. Plan: I will decrease rate of normal saline to 40 mL an hour. Lasix 40 mg IV once today. Check serologies. Add oral sodium bicarbonate. Avoid nephrotoxins. Continue to monitor renal function and urine output. Follow-up JOSE.
[2019-05-27] MEDS: SODIUM BICARBONATE TAB 650 MG TAB PO SCH ×2 (11:28→20:53)
[2019-05-27] MEDS: HYDROCORTISONE 20 MG TAB PO SCH (11:28)
[2019-05-27 16:54] LABS: Anti-DNA, DS unit <1.0 IU/mL; DNA Double-Stranded NEGATIVE (NEGATIVE)
[2019-05-27 17:29] LABS: Hepatitis A Antibody IgM Non-Reactive (Non-Reactive); Hepatitis B Core IgM Non-Reactive (Non-Reactive); Hepatitis B Surface Antigen Non-Reactive (Non-Reactive); Hepatitis C IgG Antibody Non-Reactive (Non-Reactive)
--- NOTE | 2019-05-27 17:53 | PN ---
PROGRESS NOTE DATE OF SERVICE: 05/27/2019 REASON FOR FOLLOWUP: MSSA bacteremia with a question of endovascular source. INTERVAL HISTORY: The patient is currently afebrile, has been breathing comfortably. Still requiring very low-dose pressor support, as his blood pressure is very sensitive to pressor support. Denies having any chest pain. No nausea or vomiting. No abdominal pain. He did have some diarrhea, for which a fecal management system has been applied. Stool for C difficile was checked which came back negative. PHYSICAL EXAMINATION: Blood pressure 91/60 with a pulse of 85, temperature 97.5. He is 100% on 4 L nasal cannula. General description is an elderly male lying in bed in no distress. RESPIRATORY SYSTEM: Unlabored breathing. Clear to auscultation anteriorly. HEART: S1, S2. Regular rate and rhythm. ABDOMEN: Soft. No tenderness. GENITOURINARY: The patient did have an ulcer on his glans penis, but no cellulitis. LABS: Hemoglobin 9.1, white count 9.4 with a BUN of 75, creatinine 2.65. Blood culture from 05/26 shows coagulase-negative staph. DIAGNOSTIC IMPRESSION AND PLAN: 1. Patient with methicillin-susceptible Staphylococcus aeruginosa bacteremia, more likely endovascular source. Awaiting a JOSE. To continue with nafcillin. 2. Positive blood culture for coagulase-negative staph; likely contaminant. No need for therapy for the same. 3. Wound on his glans penis. No cellulitis. Local would care with Triad cream to keep it protected. Continue with supportive care. MMODL / IJN: [id number] /
[2019-05-27] MEDS: HYDROPHILIC CREAM 180 GM TUBE TOPICAL SCH (20:45)
[2019-05-27] MEDS: MONTELUKAST 10 MG TAB PO SCH (20:53)
[2019-05-27] MEDS: SERTRALINE 50 MG TAB PO SCH (20:53)
[2019-05-27] MEDS: ATORVASTATIN 20 MG TAB PO SCH (20:53)
[2019-05-27] MEDS: HYDROCORTISONE 10 MG TAB PO SCH (20:53)
[2019-05-28] MEDS: NAFCILLIN 2 GM in DEXTROSE 5% IN WATER 100 ML IVPB SCH ×14 (00:39→23:59)
[2019-05-28 04:41] LABS: Anisocytosis Slight; Basophils % (A) 0 %; Eosinophils % (A) 1 %; HGB 8.6 gm/dL (13.0-17.5); Lymphocytes # (A) 0.9 k/uL (1.0-4.8); Lymphocytes % (A) 13 %; MCH 29.3 pg (25.0-35.0); MCV 88.7 fL (80.0-100.0); Mean Platelet Volume 9.2; Monocytes # (A) 0.2 k/uL (0-1.0); Monocytes % (A) 3 %; Neutrophils # (A) 5.5 k/uL (1.3-7.7); Neutrophils % (A) 80 %; RBC 2.92 m/uL (4.30-5.90); RDW 16.4 % (11.5-15.5); WBC 6.9 k/uL (3.8-10.6)
[2019-05-28 04:44] LABS: Platelet Count 75 k/uL (150-450)
[2019-05-28 04:55] LABS: Calcium 6.7 mg/dL (8.4-10.2); Potassium 3.5 mmol/L (3.5-5.1)
[2019-05-28] MEDS: SODIUM CHLORIDE 0.9% 1,000 ML IV SCH (05:00)
[2019-05-28] MEDS: MIDODRINE 5 MG TAB PO SCH ×3 (07:04→15:56)
[2019-05-28] MEDS: LEVOTHYROXINE 112 MCG TAB PO SCH (07:04)
[2019-05-28] MEDS: PANTOPRAZOLE 40 MG TABLET PO SCH (07:04)
--- NOTE | 2019-05-28 08:17 | XR ---
EXAMINATION TYPE: XR chest 1V portable DATE OF EXAM: 05/28/2019 Comparison: 05/27/2019 Clinical History: 79-year-old male Shortness of breath Findings: Median sternotomy wires are present with post-CABG clips. Heart remains upper limits of normal in siz e. Continued small to moderate right effusion with right mid and lower lung density. Patchy retrocard iac opacity also persists. Impression: Stable [id number] right effusion with adjacent atelectasis and/or consolidation extending up t o the midlung level. Retrocardiac atelectasis/infiltrate is also stable.
[2019-05-28] MEDS: IPRATROPIUM-ALBUTEROL 3 ML NEB INHALATION SCH ×3 (08:57→19:34)
[2019-05-28] MEDS: SYMBICORT 160-4.5 MCG INHALER INHALATION SCH ×2 (08:57→19:34)
--- NOTE | 2019-05-28 09:29 | P.PN ---
Subjective Progress Note Date: 05/28/19 This is a 79-year-old gentleman who has been in this hospital since 05/21/2019. Patient is admitted with the diagnosis of cardiac myopathy, dyslipidemia, hypothyroidism, coronary artery disease and also with complaints of fever or chills. His blood cultures are positive for staph aureus. A JOSE examination is requested because of bacteremia. Patient was seen by Dr. Gayle and felt that patient was confused yesterday. He would consider and patient is more stable. Patient is alert and doesn't appear to be in acute distress at this time. Still seemed to be somewhat confused. His last blood culture apparently was negative. I will discuss with Dr. Gayle about timing of the JOSE. Meanwhile continue with antibiotic therapy. 06/27/2019: This 79-year-old gentleman is being treated for sepsis, renal failure, cardiomyopathy and probably some element of congestive heart failure. Patient is not feeling well. He complaints of back pain. His also complains of shortness of breath. He is oliguric. His chest x-ray shows a right-sided infiltrates and effusion. Patient's IV fluids were cut back and was given IV Lasix by nephrology, yesterday. ID specialist once JOSE. Discussed with patient and also his and we plan to the JOSE around 11:00. Meanwhile continue with antibiotic therapy. Prognosis is guarded. His creatinine has gone up, and prior patient may need dialysis if the renal function doesn't improve. Prognosis is poor Objective - Vital Signs Vital signs: Vital Signs Temp 97.8 F 05/28/19 04:00 Pulse 79 05/28/19 09:09 Resp 20 05/28/19 07:00 BP 89/62 05/28/19 07:00 Pulse Ox 100 05/28/19 07:00 Intake & Output 05/27/19 05/28/19 05/28/19 18:59 06:59 18:59 Intake Total 921.660 780 Output Total 930 500 Balance -8.340 280 Weight 79.8 kg 81.4 kg Intake: IV 890 780 0.9 640 480 Nafcillin 2 gm In 250 300 Dextrose 5% in Water 100 ml @ 50 mls/hr IVPB Q4HR [facility] Rx#:[id number] Intake, IV Titration 31.660 Amount Norepinephrine 4 mg In 31.660 Sodium Chloride 0.9% 250 ml @ 0.05 MCG/KG/MIN 13. 826 mls/hr IV .[id number] [facility] Rx#:[id number] Output: Urine 730 500 Stool 200 Other: Voiding Method Indwelling Catheter Indwelling Catheter - Exam GENERAL EXAM: Patient is alert and somewhat confused HEENT: Normocephalic. Normal reaction of pupils, equal size, normal range of extraocular motion. No erythema or exudates in the throat. NECK: No masses, no nuchal rigidity. CHEST: No chest wall deformity. LUNGS: Decreased air entry, especially on the left side HEART: S1 and S2 normal with no audible mumurs or gallops. Regular rhythm, femorals equal on both sides.. ABDOMEN: No hepatosplenomegaly, normal bowel sounds, no guarding or rigidity. SKIN: No rashes CENTRAL NERVOUS SYSTEM: No gross deficits EXTREMITIES: No cyanosis, clubbing or edema. - Labs CBC & Chem 7: 05/28/19 04:14 05/28/19 04:14 Labs: Abnormal Lab Results - Last 24 Hours (Table) 05/28/19 05/28/19 Range/Units 04:14 04:14 RBC 2.92 L (4.30-5.90) m/uL Hgb 8.6 L (13.0-17.5) gm/dL Hct 26.0 L (39.0-53.0) % RDW 16.4 H (11.5-15.5) % Plt Count 75 L (150-450) k/uL Lymphocytes # 0.9 L (1.0-4.8) k/uL Sodium 131 L (137-145) mmol/L Chloride 97 L (98-107) mmol/L Carbon Dioxide 21 L (22-30) mmol/L BUN 77 H (9-20) mg/dL Creatinine 2.88 H (0.66-1.25) mg/dL Glucose 109 H (74-99) mg/dL Calcium 6.7 L (8.4-10.2) mg/dL Microbiology - Last 24 Hours (Table) 05/25/19 05:56 Blood Culture - Preliminary Blood No Growth after 72 hours 05/27/19 04:46 Blood Culture - Preliminary Blood No Growth after 24 hours 05/26/19 05:53 Blood Culture Gram Stain - Preliminary Blood Blood Culture - Preliminary Coagulase Negative Staph Coagulase Negative Staph#2 Assessment and Plan (1) Staphylococcus aureus bacteremia Current Visit: Yes Status: Acute Code(s): R78.81 - BACTEREMIA SNOMED Code(s): 760774760 (2) Cardiomyopathy Current Visit: Yes Status: Acute Code(s): I42.9 - CARDIOMYOPATHY, UNSPECIFIED SNOMED Code(s): 56547237 (3) Congestive heart failure Current Visit: Yes Status: Acute Code(s): I50.9 - HEART FAILURE, UNSPECIFIED SNOMED Code(s): 04478656 (4) Pleural effusion Current Visit: Yes Status: Acute Code(s): J90 - PLEURAL EFFUSION, NOT ELSEWHERE CLASSIFIED SNOMED Code(s): 20620397 (5) Pneumonia Current Visit: Yes Status: Acute Code(s): J18.9 - PNEUMONIA, UNSPECIFIED ORGANISM SNOMED Code(s): 472879629 (6) Sepsis Current Visit: Yes Status: Acute Code(s): A41.9 - SEPSIS, UNSPECIFIED ORGANISM SNOMED Code(s): 95258679 Plan: We will proceed with a JOSE examination. Consent was obtained from patient's . Meanwhile, continue current medical therapy
[2019-05-28] MEDS: traMADol 50 MG TAB PO PRN (09:31)
[2019-05-28] MEDS: SODIUM BICARBONATE TAB 650 MG TAB PO SCH ×2 (09:32→20:42)
[2019-05-28] MEDS: HYDROPHILIC CREAM 180 GM TUBE TOPICAL SCH ×2 (09:32→23:59)
[2019-05-28] MEDS: NYSTATIN 100,000 UNIT/ML SUSP 500,000 UNIT/5 ML CUP PO SCH ×4 (09:32→20:42)
[2019-05-28] MEDS: HYDROCORTISONE 20 MG TAB PO SCH (09:32)
--- NOTE | 2019-05-28 09:54 | P.PN ---
Subjective Progress Note Date: 05/28/19 Principal diagnosis: Acute septic shock secondary to right lower lobe pneumonia, this is likely healthcare acquired pneumonia and gram-positive bacteremia. MSSA. This is a 79-year-old white male patient of Dr. Wallace, with extensive medical history, was recently hospitalized for acute exacerbation of systolic congestive heart failure with an EF of 30-35%, acute hypoxic failure related to CHF, acute on chronic renal failure. Following his discharge on 05/16/2019 patient went to [facility] for rehab. On 05/20/2019 patient was brought into the hospital for evaluation of worsening shortness of breath, fever chills, increased sputum production. Denied any nausea or vomiting, patient also complained of penile pain, and dysuria. Patient does have a history of COPD on home oxygen at 4 L. Other medical history includes CAD with history of bypass grafting, bladder c ancer, patient follows with Dr. Calvert from urology, hyperlipidemia, previous myocardial infarction, osteoarthritis, sleep apnea on CPAP therapy, prostate disorder, hypothyroidism, chronic back pain, and previous history of smoking. Chest x-ray was completed showing small bilateral pleural effusions, bibasilar atelectasis and diffuse interstitial and hazy opacities with the possibility of interstitial pneumonia, and fluid overload. Lab work was positive for leukocytosis, white blood cell count is 31.3, hemoglobin is 7.4, patient had 23% bandemia, correlation profile was within normal limits, serum sodium was 133, potassium 3.4, chloride was 92, CO2 is 31, BUN was 61, creatinine is 2.42. La ctic acid was 4.8 patient was given 2 L of IV fluids, this morning his lactic acid is 2.8, troponins were positive at 0.173, and 0.121. [place] [address], urinalysis showed large amount of blood, 1+ protein, large amount of leuk trase, rare white blood cell and rare bacteria, doubt underlying urinary tract infection. Influenza screen was negative. Patient was initially admitted to stepdown floor, this morning his febrile, with a temp of 102.2, patient is tachycardic the heart rate up to 120 BPM, blood pressures are marginal, 99/71, and subsequent one was systolic in the 80s. Patient was given additional liter bolus, broad-spectrum antibiotics were started in the form of Zosyn. Blood cul tures were sent on admission, we will obtain additional set of blood cultures, urinalysis, sputum culture. Patient is being transferred to the intensive care unit. Reevaluated today on 05/22/2019, patient remains in the ICU, I saw him yesterday, and arrange for the transferred to the ICU. During my evaluation, the patient was noted to be septic, he was transferred to the ICU and received a total of 3 L of fluids, and he was placed on a short. This time on norepinephrine for low blood pressure. Patient was on norepinephrine for few hours, today he is hemodynamically stable, feeling a bit better, chest x-ray clearly shows evidence of right lower lobe pneumonia and interstitial edema bilaterally. Hence the patient will be given a dose of Lasix, and his IV fluids will be cut down to 50 mL per hour. Blood cultures are positive for gram-positive cocci, hence vancomycin was added. In the meantime we will continue Zosyn until the final identification and sensitivity noted from the blood cultures. WBC count today is down to 23.8 hemoglobin is 8.6 electrolytes are normal BUN is 53 creatinine is 1.48, improving compared to 2.42 on admission. Troponin was noted to be 0.069. Potassium is 3.5 be corrected as per protocol. Reevaluated today on 05/23/2019, patient remains in the ICU, off norepinephrine, hemodynamically stable, urine output is marginal but improving with diuretics, and he was given a dose of Lasix earlier today. Overall the patient is slightly better compared to his presentation. Chest x-ray continues to showsome component of congestive heart failure, and some component of patchy infiltrates in the right lower lobe. Small pleural effusion is noted right greater than left.WBC count remains elevated at 25.2 hemoglobin is 10.3. Electrodes are normal BUN is improving creatinine is also improving down to 1.16.patient is off norepinephrine today. Troponin level is slightly elevated at 0.069, Patient was reevaluated today on 05/24/2019, remains in the ICU, off norepinephrine, feeling better, breathing easier, however his chest x-ray continues to show some interstitial edema Lasix was given 40 mg IV push times one. Cut down his fluid down to 50 mL per hour. Clinically the patient is feeling better, breathing a lot easier, chest x-ray is still concerning, and his blood pressure remains marginal but he normally runs a low blood pressure. WBC down to 20.9 his electrolytes are normal except for low potassium being corrected. BUN is 48 creatinine 1.18. His blood cultures came back positive for MSSA. Patient is now on nafcillin as per infectious disease on the case. Other antibiotics have been discontinued. Reevaluated today on 05/25/2019, patient remains off norepinephrine, blood pressure remains low marginal. Responds well to IV Lasix given on a daily basis as needed. IV fluids remains at 50 mL per hour. Continues to have positive blood cultures, and a transesophageal echocardiogram should be done by cardiology. His blood cultures remain positive since admission. Patient remains on antibiotics as per infectious disease on the case. Chest x-ray showed right lower lobe consolidation, and possibly a small right-sided pleural effusion. Minimal effusion noted on the left. WBC count is coming down to 15.9 it was quite elevated on admission. It was 20.9 yesterday and a 25.22 days ago. His electrolytes are normal BUN however is up to 59, and creatinine is up to 1.35, we'll continue cautious hydration and hold on diuretics. Patient does have poor LV function and the findings on his renal status could be related to diuretics as well as cardiorenal in nature. Reevaluated today on 05/26/2019, patient is back on norepinephrine today at 0.06 mcg/kg/m. Patient had low blood pressure last night, low urine output, hence he is now back on norepinephrine, and he is receiving IV fluid at 70 mL per hour. Will hold on any diuretics today. Patient continues to have positive blood cultures, initiated a cardiology consultation yesterday, not seen yet by cardiology, patient will definitely require transesophageal echocardiogram to document endocarditis and to explain his persistent positive blood cultures. Ultrasound of the chest did not show enough pleural effusion on the right side to consider safe thoracentesis. Hence no thoracentesis will be done. His transthoracic echocardiogram did show evidence of poor LV function with ejection fraction of 30-35 percent. And hopefully a transesophageal echo could be done tomorrow. Clinically the patient is slightly confused, he is not in any form of respiratory distress. Chest x-ray continues to show air space disease in the right lower lobe and small tiny right-sided pleural effusion. Also there is evidence of mild pulmonary edema. On 05/27/2019 patient seen in follow-up in the intensive care unit. He is lethargic, but easily arousable, denies any acute distress, currently on 4 L of oxygen per nasal cannula, pulse ox of 98%, afebrile, he remains on small dose of levothyroid at 2 mics per minute, and maintenance IV fluids 0.9 normal saline at a rate of 75 ML per hour, Currently on nafcillin for MSSA bacteremia, was also treated with a combination of Zosyn, Levaquin and later with cefepime which have all been discontinued now for evidence of Klebsiella pneumonia in the urine culture. No fever or chills, no signs of respiratory distress, follow-up blood cultures starting on 05/25, 05/26 have been negative. Cardiology is following and will decide on the timing of the JOSE. His chest x-ray has been reviewed showing persistent right greater than left bibasilar infiltrates and/or atelectasis and bilateral pleural effusions right greater than left. Patient is maintaining stable oxygenation, he normally wears 3 L of oxygen at home, he is currently on 4 which can actually be titrated down, today's labs have been reviewed, showing white blood cell count is trending, down to 9.4 on today's labs from 12.7, hemoglobin is 9.1, serum sodium is 131, potassium is 4.0, chloride is 97, CO2 is 20, BUN is 75, creatinine is 2.65. Magaña catheter is in, draining clear urine, ranging 35-50 ML per hour. Patient has a fecal management system as in with liquid output and C. diff was negative. On 05/28/2018 patient seen in follow-up in the intensive care unit, she is resting in bed, appears fatigued, but no acute distress, is on 4 L of oxygen, his pulse ox is 98-100%. Denies any specific complaints, no shortness of breath, no component of chest pain, levo fed has been on hold since 12:00 yesterday on 05/27/2019. Today's labs have been reviewed, showing a white blood cell count is 6.9, hemoglobin of 8.6, sodium of 131, potassium is 3.5, chloride is 97, CO2 is 21, BUN 77, and creatinine is 2.8. Ration is on nafcillin for evidence of Staphylococcus aureus, susceptible to oxacillin. Urine culture on the was positive for Klebsiella pneumonia patient has been treated with Zosyn, Levaquin and later cefepime. No fever or chills, sinus rhythm on the monitor, follow-up cultures are pending, patient has been having daily repeat blood cultures, JOSE is pending sometime today. Objective - Vital Signs Vital signs: Vital Signs Temp 97.8 F 05/28/19 04:00 Pulse 79 05/28/19 09:09 Resp 20 05/28/19 07:00 BP 89/62 05/28/19 07:00 Pulse Ox 100 05/28/19 07:00 Intake & Output 05/27/19 05/28/19 05/28/19 18:59 06:59 18:59 Intake Total 921.660 780 Output Total 930 500 Balance -8.340 280 Weight 79.8 kg 81.4 kg Intake: IV 890 780 0.9 640 480 Nafcillin 2 gm In 250 300 Dextrose 5% in Water 100 ml @ 50 mls/hr IVPB Q4HR [facility] Rx#:[id number] Intake, IV Titration 31.660 Amount Norepinephrine 4 mg In 31.660 Sodium Chloride 0.9% 250 ml @ 0.05 MCG/KG/MIN 13. 826 mls/hr IV .[id number] [facility] Rx#:[id number] Output: Urine 730 500 Stool 200 Other: Voiding Method Indwelling Catheter Indwelling Catheter - Exam GENERAL EXAM: Somnolent, but easily arousable, 79-year-old white male, currently on 4L of oxygen with a pulse ox of 99%, no signs of distress HEAD: Normocephalic/atraumatic. EYES: Normal reaction of pupils, equal size. Conjunctiva pink, sclera white. NOSE: Clear with pink turbinates. THROAT: No erythema or exudates. NECK: No masses, no JVD, no thyroid enlargement, no adenopathy. CHEST: No chest wall deformity. Symmetrical expansion. LUNGS: Diminished air entry at the bases with diffuse crackles at bilateral lower lobes, no significant rhonchi or wheezing CVS: Regular rate and rhythm, normal S1 and S2, no gallops, no murmurs, no rubs ABDOMEN: Soft, nontender. No hepatosplenomegaly, normal bowel sounds, no guarding or rigidity. EXTREMITIES: No clubbing, no edema, no cyanosis, 2+ pulses and upper and lower extremities. MUSCULOSKELETAL: Muscle strength and tone normal. SPINE: No scoliosis or deformity SKIN: No rashes CENTRAL NERVOUS SYSTEM: Alert and oriented -2. No focal deficits, tone is normal in all 4 extremities. PSYCHIATRIC: Alert and oriented -2. Appropriate affect. Intact judgment and insight. - Labs CBC & Chem 7: 05/28/19 04:14 05/28/19 04:14 Labs: Abnormal Lab Results - Last 24 Hours (Table) 05/28/19 05/28/19 Range/Units 04:14 04:14 RBC 2.92 L (4.30-5.90) m/uL Hgb 8.6 L (13.0-17.5) gm/dL Hct 26.0 L (39.0-53.0) % RDW 16.4 H (11.5-15.5) % Plt Count 75 L (150-450) k/uL Lymphocytes # 0.9 L (1.0-4.8) k/uL Sodium 131 L (137-145) mmol/L Chloride 97 L (98-107) mmol/L Carbon Dioxide 21 L (22-30) mmol/L BUN 77 H (9-20) mg/dL Creatinine 2.88 H (0.66-1.25) mg/dL Glucose 109 H (74-99) mg/dL Calcium 6.7 L (8.4-10.2) mg/dL Microbiology - Last 24 Hours (Table) 05/25/19 05:56 Blood Culture - Preliminary Blood No Growth after 72 hours 05/27/19 04:46 Blood Culture - Preliminary Blood No Growth after 24 hours 05/26/19 05:53 Blood Culture Gram Stain - Preliminary Blood Blood Culture - Preliminary Coagulase Negative Staph Coagulase Negative Staph#2 Assessment and Plan Plan: Assessment: #1. Acute septic shock secondary to right lower lobe pneumonia, likely healthcare acquired pneumonia and gram-positive bacteremia secondary to MSSA. There is also evidence of urinary tract infection with urine cultures positive for Klebsiella pneumonia #2. Acute on chronic hypoxemic respiratory failure related to the above #3. Lactic acidosis improving with IV hydration #4. Acute kidney injury likely related to ATN #5. Acute exacerbation of chronic congestive heart failure with systolic dysfunction with a known impaired left ventricular systolic function with an EF of 30-35% #6. Elevated troponins rule out non-ST elevated myocardial infarction #7. Recent admission for acute exacerbation of systolic CHF, acute kidney injury #8. History of COPD on chronic oxygen #9. Former smoker #10. History of bladder cancer, patient's TURBT in March 2019 had to be aborted related to hypotension. Follows with Dr. Calvert #11. History of coronary artery disease with previous bypass grafting #12. Hypertension #13. Previous myocardial infarction #14. Ischemic cardiomyopathy with the EF of 30-35% #15. Chronic anemia #16. History of benign prostatic hypertrophy #17. Persistent positive blood cultures with concern for endocarditis, JOSE is recommended, his transthoracic echo showed no evidence of vegetation, cardiology is following Plan: Continue current medical treatment, continue same antibiotics, ID service is following, current antibiotic coverage is with nafcillin, continue with daily blood cultures, JOSE is pending today, hemodynamic patient is stable, has been weaned off the levofed. I performed a history & physical examination of the patient and discussed their management with my nurse practitioner, Taisha Saldaña. I reviewed the nurse practitioner's note and agree with the documented findings and plan of care. Lung sounds are positive for diminished with rales. The findings and the impression was discussed with the patient. I attest to the documentation by the nurse practitioner. Time with Patient: Less than 30
[2019-05-28] MEDS ORDERED: MIDAZOLAM PF (FBP) 2 MG/2 ML VIAL IV ONE ×2 (10:41→11:55)
[2019-05-28] MEDS ORDERED: fentaNYL (PF) 50 MCG/ML 2 ML AMP IVP ONE (10:41)
--- NOTE | 2019-05-28 11:36 | P.PN ---
Subjective Progress Note Date: 05/27/19 Principal diagnosis: Septic shock 79-year-old pleasant gentleman came in with the shortness of breath and is being treated for sepsis possible source being pneumonia. Patient to sepsis improved significantly patient is off Levophed patient does have significant pulmonary edema from IV fluids and patient does have congestive heart failure ejection fraction at that to 35% received IV Lasix and this can you IV fluids will closely monitor his blood pressure patient normally has low blood pressure presently on Zosyn at this time. Being followed by multiple consultants andrew gal[facility] infectious disease [place]. 05/23/2019 Patient wishes daily stable patient is receiving IV Lasix because of his pulmonary edema. Patient does have bacteremia with the staph aureus probably th e source of infection rather pneumonia or urinary tract infection patient will be switched to nafcillin discussed with infectious disease. Patient the has blood cultures that are positive second set of blood cultures are positive because of which echocardiogram will be obtained to rule out any endocarditis. Patient had low-grade fever yesterday we'll repeat blood cultures again today. Creatinine improved from 1.48 to 1.16. 05/24/2019 Patient's fevers resolved but blood cell count is improving. But patient remains bacteremic. Echocardiogram did not show any valvular lesions 9 DT astemizole which was replaced I had a lengthy discussion with the patient regarding her overall goals of care patient is agreeable for DO NOT RESUSCITATE but unsure whether he can make his own duration I'll discuss with the family regarding this. Patient prognosis is extremely poor because of possible endo carditis, bladder cancer, systolic heart failure patient is more appropriate for hospice and comfort care same thing was discussed the patient will also discuss with the family. Patient is quite a bit fatigued and he believes he is not in a 10 out of the hospital. 05/25/2019 patient is not doing well patient the blood cultures were positive from will repeat blood cultures tomorrow creatinine started going up patient blood pressure is still unstable patient is back on Levophed is still getting IV fluids patient does have pulmonary edema prognosis is extremely poor, will discuss with the family regarding hospice. Was unable to reach family yesterday 05/26/2019 Patient looks bit better today off levothyroid, patient today appears to able to my dictation because of which I had lengthy discussion with him regarding DO NOT RESUSCITATE patient wants to be full code because of which I do not believe it's reasonable to discuss regarding comfort care and hospice at this time. Although I did discuss with his regarding comfort care and hospice yesterday and patient's wanted to talk to me today in person as patient now wants everything to be done at believe that discussion is inappropriate and the patient will be continued on present treatment. Pulmonology believes patient may have an empyema. Patient most probably has an otitis and will need a JOSE cardiology was consulted for that. Repeat blood cultures will be obtained for today and tomorrow patient can use to have persistent bacteremia his prognosis although remains extremely poor. 05/27/2019 Patient is very lethargic but arousable. Currently on Levophed. Otherwise patient is being continued on antibiotics in the form of nafcillin for MSSA bacteremia. Repeat cultures have been negative so far. No fever no chills. Cardiology is following for possible JOSE to rule out vegetations. Chest x-ray showed persistent right greater than left bibasilar infiltrates/atelectasis and bilateral pleural effusions right greater than left. Patient otherwise saturating well on 4 L nausea cannula oxygen. WBC count improved to 9.4 from 12.7. BUN 74 and creatinine 2.65. Patient does have [place] catheter and fecal m anagement system. C. diff negative. Pt. still wants to be full code. Constitutional: Looks less fatigued and looks bit better Cardio vascular: denied any chest pain, palpitations Gastrointestinal denied any nausea vomiting Pulmonary: Does have shortness of breath Neurologic denied any new focal deficits All inpatient medications were reviewed and appropriate changes in these medications as dictated in the interval history and assessment and plan. Objective - Vital Signs Vital signs: Vital Signs Temp 98.2 F 05/27/19 08:00 Pulse 93 05/27/19 09:00 Resp 12 05/27/19 09:15 BP 122/50 05/27/19 09:15 Pulse Ox 98 05/27/19 09:15 Intake & Output 05/26/19 05/27/19 05/27/19 18:59 06:59 18:59 Intake Total 8405.453 7933.305 313.134 Output Total 387 407 125 Balance 0003.966 6974.305 188.134 Weight 79.8 kg Intake: IV 1120 950 310 0.9 870 700 210 Nafcillin 2 gm In 250 250 100 Dextrose 5% in Water 100 ml @ 50 mls/hr IVPB Q4HR LOUIE Rx#:[id number] Intake, IV Titration 191.507 211.305 3.134 Amount Norepinephrine 4 mg In 191.507 211.305 3.134 Sodium Chloride 0.9% 250 ml @ 0.05 MCG/KG/MIN 13. 826 mls/hr IV .[id number] LOUIE Rx#:[id number] Oral 250 270 Output: Urine 387 405 125 Stool 2 Other: Voiding Method Indwelling Catheter Indwelling Catheter # Bowel Movements 2 - Exam GENERAL: The patient is alert and oriented x3, much less fatigued today looks bit better. Well developed, well nourished. HEENT: Pupils are round and equally reacting to light. EOMI. No scleral icterus. No conjunctival pallor. Normocephalic, atraumatic. No pharyngeal erythema. No thyromegaly. CARDIOVASCULAR: S1 and S2 present. No murmurs, rubs, or gallops. Does have elevated JVD PULMONARY: Clear to auscultation today no wheezing ABDOMEN: Soft, nontender, nondistended, normoactive bowel sounds. No palpable organomegaly. MUSCULOSKELETAL: No joint swelling or deformity. EXTREMITIES: No cyanosis, clubbing, or pedal edema. NEUROLOGICAL: Gross neurological examination did not reveal any focal deficits. SKIN: No rashes. - Labs CBC & Chem 7: 05/28/19 04:14 05/28/19 04:14 Labs: Abnormal Lab Results - Last 24 Hours (Table) 05/26/19 05/27/19 05/27/19 Range/Units 18:45 04:37 04:46 RBC 3.10 L (4.30-5.90) m/uL Hgb 9.1 L (13.0-17.5) gm/dL Hct 28.4 L (39.0-53.0) % RDW 16.4 H (11.5-15.5) % Plt Count 88 L (150-450) k/uL Neutrophils # 8.0 H (1.3-7.7) k/uL Lymphocytes # 0.8 L (1.0-4.8) k/uL Sodium 131 L (137-145) mmol/L Chloride 97 L (98-107) mmol/L Carbon Dioxide 20 L (22-30) mmol/L BUN 75 H (9-20) mg/dL Creatinine 2.65 H (0.66-1.25) mg/dL Glucose 132 H (74-99) mg/dL Calcium 7.2 L (8.4-10.2) mg/dL U Random Total Protein 99 H (<12) mg/dL Microbiology - Last 24 Hours (Table) 05/25/19 05:56 Blood Culture - Preliminary Blood No Growth after 48 hours 05/26/19 05:53 Blood Culture Gram Stain - Preliminary Blood 05/26/19 05:53 Blood Culture - Final Blood 05/24/19 04:55 Blood Culture Gram Stain - Final Blood Blood Culture - Final Staphylococcus aureus Assessment and Plan Assessment: -Sepsis, septic shock: shock improved patient is still septic and bacteremic with staph aureus possible source being endocarditis which cannot be ruled out echocardiac gram did not show any endocarditis but will require JOSE for that, UTI or pneumonia doesn't appear to be source of infection. Patient will be started on nafcillin patient has MSSA actively anemia which is persistent b acteremia. Because of his recurrent recent intercurrent hospitalizations patient may have had bacteremia from IV lines. Patient is presently on nafcillin remains to have persistent bacteremia. Patient is on norepinephrine and receiving IV fluids per does have pulmonary edema. Pulmonary believes patient may have right-sided empyema. -Acute hypoxic respiratory failure secondary to congestive heart failure exacerbation, patient blood pressure is low because of which patient received IV fluids patient does have significant crackles on exam receiving Lasix on as- needed basis whenever he can tolerate. -Lactic acidosis secondary to sepsis resolved now patient is presently receiving Lasix -Acute renal failure secondary to prerenal azotemia as well as acute tubular necrosis creatinine improved started going up again because of hypotension, sepsis and congestive heart failure -Hypervolemic hyponatremia secondary to congestive heart failure improving with Lasix. -Congestive heart failure chronic systolic dysfunction ejection fraction of 30- 35% with acute exacerbation, patient has ischemic cardiomyopathy -COPD chronic hypercapnic respiratory failure on oxygen at home. -Possibility of bladder cancer bladder cancer, following follows up with urology and a recent TURP which was incomplete and aborted secondary to hypotension -Coronary artery disease with previous CABG patient has recent cardiac catheterization which did not show any atherosclerotic occlusive disease that need intervention. -Hypertension -Hypothyroidism: Continue with levothyroxine -Benign prostatic hypertrophiy. -DVT prophylaxis with subcutaneous heparin twice a day Time with Patient: Greater than 30
--- NOTE | 2019-05-28 11:41 | P.PN ---
Subjective Patient is seen in follow-up for acute kidney injury. Renal function continues to worsen. Creatinine 2.88 today. He is nonoliguric. Currently maintained on normal saline at 40 mL an hour. Patient has systolic CHF with ejection fraction of 30-35%. Does have edema in the lower extremities. No vomiting or diarrhea. He did receive 1 dose of Lasix 40 mg IV yesterday. He is currently undergoing a JOSE. Vital signs are stable. General: The patient appeared well nourished and normally developed. HEENT: Head exam is unremarkable. Neck is without jugular venous distension. LUNGS: Breath sounds decreased. HEART: Rate and Rhythm are regular. First and second heart sounds normal. No murmurs, rubs or gallops. ABDOMEN: Abdominal exam reveals normal bowel sounds. Non-tender and non- distended. No evidence of peritonitis. EXTREMITITES: 1+ edema. Objective - Vital Signs Vital signs: Vital Signs Temp 97.8 F 05/28/19 04:00 Pulse 79 05/28/19 09:09 Resp 20 05/28/19 07:00 BP 89/62 05/28/19 07:00 Pulse Ox 100 05/28/19 07:00 Intake & Output 05/27/19 05/28/19 05/28/19 18:59 06:59 18:59 Intake Total 921.660 780 Output Total 930 500 Balance -8.340 280 Weight 79.8 kg 81.4 kg Intake: IV 890 780 0.9 640 480 Nafcillin 2 gm In 250 300 Dextrose 5% in Water 100 ml @ 50 mls/hr IVPB Q4HR LOUIE Rx#:[id number] Intake, IV Titration 31.660 Amount Norepinephrine 4 mg In 31.660 Sodium Chloride 0.9% 250 ml @ 0.05 MCG/KG/MIN 13. 826 mls/hr IV .[id number] LOUIE Rx#:[id number] Output: Urine 730 500 Stool 200 Other: Voiding Method Indwelling Catheter Indwelling Catheter - Labs CBC & Chem 7: 05/28/19 04:14 05/28/19 04:14 Labs: Abnormal Lab Results - Last 24 Hours (Table) 05/28/19 05/28/19 Range/Units 04:14 04:14 RBC 2.92 L (4.30-5.90) m/uL Hgb 8.6 L (13.0-17.5) gm/dL Hct 26.0 L (39.0-53.0) % RDW 16.4 H (11.5-15.5) % Plt Count 75 L (150-450) k/uL Lymphocytes # 0.9 L (1.0-4.8) k/uL Sodium 131 L (137-145) mmol/L Chloride 97 L (98-107) mmol/L Carbon Dioxide 21 L (22-30) mmol/L BUN 77 H (9-20) mg/dL Creatinine 2.88 H (0.66-1.25) mg/dL Glucose 109 H (74-99) mg/dL Calcium 6.7 L (8.4-10.2) mg/dL Microbiology - Last 24 Hours (Table) 05/25/19 05:56 Blood Culture - Preliminary Blood No Growth after 72 hours 05/27/19 04:46 Blood Culture - Preliminary Blood No Growth after 24 hours 05/26/19 05:53 Blood Culture Gram Stain - Preliminary Blood Blood Culture - Preliminary Coagulase Negative Staph Coagulase Negative Staph#2 Assessment and Plan Plan: Assessment: 1. Acute kidney injury secondary to ATN secondary to sepsis. Creatinine 2.88 today. Baseline creatinine is near 1. Rule out GN. UPC 2.47 g. urine eosinophils negative. Serologies negative so far. 2. Hyponatremia secondary to acute kidney injury. Patient is hypervolemic. Stable. 3. Lower extremity edema. 4. Staph aureus bacteremia maintained on IV antibiotics. Endocarditis being rule out. JOSE pending. 5. Metabolic acidosis secondary to acute kidney injury. 6. Systolic CHF with ejection fraction of 30-35%. 7. Hypocalcemia due to acute kidney injury and hypoalbuminemia. Plan: Repeat Lasix 40 mg IV once today. Follow-up pending serologies. Maintain oral sodium bicarbonate. Avoid nephrotoxins. Continue to monitor renal function and urine output. Follow-up JOSE. Check albumin level.
[2019-05-28] MEDS: ASPIRIN 81 MG PO SCH (12:31)
[2019-05-28] MEDS: OXYBUTYNIN XL 5 MG TAB.ER.24 PO SCH (12:31)
[2019-05-28] MEDS: NOREPINEPHRINE 4 MG in SODIUM CHLORIDE 0.9% 250 ML IV SCH ×2 (12:32→14:09)
[2019-05-28] MEDS: POTASSIUM CHLORIDE ER 20 MEQ TAB.ER PO SCH ×2 (12:32→14:10)
[2019-05-28 13:18] LABS: Complement C3 88.2 mg/dL (80.0-207.0)
[2019-05-28 14:11] LABS: C-ANCA <1:20 Titer (<1:20)
--- NOTE | 2019-05-28 14:39 | P.TEE ---
Indications for Procedure(s): Rule out endocarditis Date of Procedure: 05/28/19 Preoperative Diagnosis: Sepsis and a positive blood cultures with staph bacteremia. Rule out endocarditis Postoperative Diagnosis: Presentation she noted on the mitral valve and possible vegetation on the aortic valve highly suggestive of endocarditis Description of Procedure(s): Patient is in the intensive care unit and the JOSE examination was performed bedside. Patient has been nothing by mouth since morning for more than 6 hours. Patient was given IV Versed boluses about 1 mg and 25 g of fentanyl. The throat was sprayed with Cetacaine. A lubricated Omni probe was introduced into the oropharynx and was advanced into the stomach and also into the esophagus. Multiple views were obtained. He patient tolerated the procedure well without any immediate complications. The findings. This study is technically difficult. The aortic valve appeared to be tricuspid with calcification and thickening, without any significant restriction to opening excursion. There are calcified leaflets and possible mobile mass suggestive of endocarditis is noted. However, the findings are not as a definitive. The mitral valve structure appears to be normal. There is a sessile, circumferential mass on the posterior mitral leaflet suggestive of vegetation. This is about 1 cm in diameter. There is another mobile mass on the anterior leaflet on the atrial side which is definitely suggestive of vegetation and also measures close to 1 cm in diameter. There is mild mitral regurgitation. The tricuspid valve is not well visualized. The interatrial septum shows excessive mobility. But again not well visualized. The left at appendage is small and free of any clot. There appears to this might smoke in in both atria. LV function is not well visualized but appears to moderate to severely impaired. Final impression #1. A mobile about 1 cm circumferential mobile mass on the anterior leaflet on the atrial side suggestive of vegetation. In addition, there is a sessile mass in the posterior leaflet of the mitral valve again suggestive of vegetation. There is questionable mobile lesion in the highly calcified aortic valve and a vegetation cannot be completely excluded. Tricuspid valve is not well visualized. Plan. 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 Patient is a high risk candidate for surgery. However, patient may not be cured with antibiotic therapy. I will continue current medical therapy and get a surgical consult. Prognosis is poor
[2019-05-28] MEDS ORDERED: FUROSEMIDE 10 MG/ML 4 ML VIAL IV ONE (16:00)
--- NOTE | 2019-05-28 16:15 | P.GSCN ---
History of Present Illness Consult date: 05/28/19 Reason for Consult: Bacterial endocarditis, surgical recommendations Requesting physician: Hany Kilpatrick History of present illness: This is an 79-year-old gentleman who follows on an outpatient basis with Dr. Christine Braxton. He has a previous medical history of coronary artery disease with myocardial infarction status post coronary artery bypass graft surgery, chronic systolic congestive heart failure with EF 30-35%, chronic renal failure, COPD on home oxygen at 4 L/m, obstructive sleep apnea on home CPAP, hypothyroidism, bladder cancer, prostate disorder, previous Heller myotomy, and previous tobacco dependence. He was recently admitted to the hospital for acute systolic heart failure and acute on chronic renal failure. He was discharged May 16 to [facility] for rehabilitation. He began to develop increased shortness of breath, fever, chills, and had increase sputum production. On May 20 he was brought back to [facility] emergency room and diagnosed with septic shock secondary to pneumonia. His lactic acid at that time was 4.8, BNP was 10,500, white blood cell count was 31.3 with 23% bands, he was febrile with temperature 102.2 Fahrenheit, tachycardic, and hypotensive. He was given fluid boluses and initiated on broad-spectrum antibiotics per sepsis protocol, and admitted to the intensive care unit with consultation placed for infectious disease, pulmonology, and nephrology. Blood cultures have been drawn daily and were positive for MSSA from May 20-, blood cultures on May 26 were positive for coag-negative staph. Cardiology was consulted for transesophageal echocardiogram to evaluate for possible endocarditis. Transesophageal echocardiogram was completed today by Dr. Kilpatrick and demonstrated tricuspid aortic valve with calcification and thickening and with possible mobile mass suggestive of endocarditis, mild mitral regurgitation with sessile mass on the posterior leaflet as well as mobile mass on the anterior leaflet suggestive of infective endocarditis. Consultation was placed to Dr. Beltran from cardiothoracic surgery for surgical recommendations. ( Review of Systems Review of systems was completed and was negative except as noted - Constitutional Reports chills, Reports fever - Cardiovascular Reports shortness of breath - Respiratory Reports cough with sputum, Reports home oxygen, Reports sleep apnea Past Medical History Past Medical History: Coronary Artery Disease (CAD), Cancer, Chest Pain / Angina, Heart Failure, COPD, GERD/Reflux, Hyperlipidemia, Myocardial Infarction ([place]), Osteoarthritis (OA), Pneumonia, Prostate Disorder, Sleep Apnea/CPAP/BIPAP, Thyroid Disorder Additional Past Medical History / Comment(s): BACK PAIN,herniated disc, pinched nerves,emphysema, hemorrhoids,skin cancer, walt cataracts-had sx, thin skin prone to bruises/skin tears. Last Myocardial Infarction Date:: unk History of Any Multi-Drug Resistant Organisms: None Reported Past Surgical History: Coronary Bypass/CABG Additional Past Surgical History / Comment(s): cataracts, 3 vessel cabg, past peg tube since removed." lizbet in penis", hemorrhoids, ?egd. pmh : lap heller myotomy Past Anesthesia/Blood Transfusion Reactions: No Reported Reaction Past Psychological History: No Psychological Hx Reported Smoking Status: Former smoker Past Alcohol Use History: None Reported Past Drug Use History: None Reported - Past Family History Mother Family Medical History: Cancer Additional Family Medical History / Comment(s): breast cancer Sister(s) Family Medical History: Cancer Additional Family Medical History / Comment(s): colon cancer Father History Unknown: Yes Additional Family Medical History / Comment(s): pt's father when pt was 3 years old. Medications and Allergies Home Medications Medication Instructions Recorded Confirmed Type Atorvastatin [Lipitor] 20 mg PO HS@199905/09/17 05/20/19 History Isosorbide Mononitrate ER [Imdur] 30 mg PO DAILY 05/09/17 05/20/19 History Levothyroxine Sodium [Synthroid] 112 mcg PO DAILY 05/09/17 05/20/19 History Sertraline [Zoloft] 50 mg PO HS 05/09/17 05/20/19 History Tolterodine ER [Detrol LA] 2 mg PO DAILY 02/20/19 05/20/19 History Ipratropium-Albuterol Nebulize 3 ml INHALATION RT-TID 03/29/19 05/20/19 History [Duoneb 0.5 mg-3 mg/3 ml Soln] Montelukast [Singulair] 10 mg PO HS 03/29/19 05/20/19 History Budesonide-Formot 160-4.5 Mcg 2 puff INHALATION RT-BID 04/08/19 05/20/19 History [Symbicort 160-4.5 Mcg Inhaler] Cranberry Fruit Concentrate [Azo 250 mg PO DAILY 04/08/19 05/20/19 History Cranberry] Acetaminophen Tab [Tylenol] 650 mg PO Q4HR PRN tab 04/17/19 05/20/19 Rx Aspirin 81 mg PO DAILY #30 chew 04/17/19 05/20/19 Rx Pantoprazole [Protonix] 40 mg PO DAILY #30 tablet. 04/17/19 05/20/19 Rx Fludrocortisone [Florinef] 0.1 mg PO DAILY #30 tab 05/16/19 05/20/19 Rx Fluticasone Nasal [place] [Flonase 1 spray EA NOSTRIL DAILY 30 Days 05/16/19 05/20/19 Rx Nasal [place]] #1 bottle Losartan [Cozaar] 12.5 mg PO DAILY #30 tab 05/16/19 05/20/19 Rx Potassium Chloride ER [K-Dur 20] 20 meq PO DAILY 30 Days #30 tab 05/16/19 05/20/19 Rx Amoxic-Pot Clav 875-125Mg 1 tab PO BID@0700,1900 05/20/19 05/20/19 History [Augmentin 875-125] Ensure 1 can PO DAILY 05/20/19 05/20/19 History Fluconazole [Diflucan] 150 mg PO ONCE 05/20/19 05/20/19 History Furosemide [Lasix] 40 mg PO BID 05/20/19 05/20/19 History Midodrine HCl [ProAmatine] 10 mg PO TID@0700,1100,1600 05/20/19 05/20/19 History Nystatin 100,000 Unit/ml Susp 500,000 unit PO QID 05/20/19 05/20/19 History [Mycostatin Oral Susp] Phenazopyridine [Pyridium] 200 mg PO ONCE 05/20/19 05/20/19 History Potassium Chloride ER [K-Dur 20] 40 meq PO DAILY 05/20/19 05/20/19 History cefTRIAXone [Rocephin] 1 gm IVPB ONCE 05/20/19 05/20/19 History predniSONE See Taper PO DIRECTED 05/20/19 05/20/19 History Allergies Allergy/AdvReac Type Severity Reaction Status Date / Time iodine Allergy Rash/Hives Verified 05/20/19 21:39 Surgical - Exam Vital Signs Temp Pulse Resp Pulse Ox 100.3 F H 115 H 36 H 93 L 05/20/19 21:19 05/20/19 21:19 05/20/19 21:19 05/20/19 21:19 - General well developed, well nourished, no distress, no pain, chronically ill - ENT decreased hearing, dentures - Neck no masses, no bruits, trachea midline - Respiratory Lungs sounds diminished bilaterally with coarse breath sounds at the bases. Re spirations even, nonlabored. Currently on 3 L nasal cannula with oxygen saturation 100%. No clubbing or cyanosis present. - Cardiovascular S1, S2 present. Regular rate and rhythm, sinus rhythm on telemetry. Palpable peripheral pulses bilaterally. Generalized edema present. No calf pain or tenderness noted. SCDs present. - Abdomen Abdomen: soft, non tender, bowel sounds - Genitourinary [place] present draining clear, yellow urine. - Rectum Fecal management system present with light brown liquid stool - Integumentary no rash, no growths - Neurologic normal coordination - Musculoskeletal Generalized weakness normal posture - Psychiatric oriented to person, oriented to place, speech is normal Results - Labs 05/28/19 04:14 05/28/19 04:14 Abnormal Lab Results - Last 24 Hours (Table) 05/28/19 05/28/19 Range/Units 04:14 04:14 RBC 2.92 L (4.30-5.90) m/uL Hgb 8.6 L (13.0-17.5) gm/dL Hct 26.0 L (39.0-53.0) % RDW 16.4 H (11.5-15.5) % Plt Count 75 L (150-450) k/uL Lymphocytes # 0.9 L (1.0-4.8) k/uL Sodium 131 L (137-145) mmol/L Chloride 97 L (98-107) mmol/L Carbon Dioxide 21 L (22-30) mmol/L BUN 77 H (9-20) mg/dL Creatinine 2.88 H (0.66-1.25) mg/dL Glucose 109 H (74-99) mg/dL Calcium 6.7 L (8.4-10.2) mg/dL Microbiology - Last 24 Hours (Table) 05/26/19 05:53 Blood Culture Gram Stain - Final Blood Blood Culture - Final Coagulase Negative Staph Coagulase Negative Staph#2 05/25/19 05:56 Blood Culture - Preliminary Blood No Growth after 72 hours 05/27/19 04:46 Blood Culture - Preliminary Blood No Growth after 24 hours Diabetes panel 05/28/19 Range/Units 04:14 Sodium 131 L (137-145) mmol/L Potassium 3.5 (3.5-5.1) mmol/L Chloride 97 L (98-107) mmol/L Carbon Dioxide 21 L (22-30) mmol/L BUN 77 H (9-20) mg/dL Creatinine 2.88 H (0.66-1.25) mg/dL Glucose 109 H (74-99) mg/dL Calcium 6.7 L (8.4-10.2) mg/dL Calcium panel 05/28/19 Range/Units 04:14 Calcium 6.7 L (8.4-10.2) mg/dL Pituitary panel 05/28/19 Range/Units 04:14 Sodium 131 L (137-145) mmol/L Potassium 3.5 (3.5-5.1) mmol/L Chloride 97 L (98-107) mmol/L Carbon Dioxide 21 L (22-30) mmol/L BUN 77 H (9-20) mg/dL Creatinine 2.88 H (0.66-1.25) mg/dL Glucose 109 H (74-99) mg/dL Calcium 6.7 L (8.4-10.2) mg/dL Adrenal panel 05/28/19 Range/Units 04:14 Sodium 131 L (137-145) mmol/L Potassium 3.5 (3.5-5.1) mmol/L Chloride 97 L (98-107) mmol/L Carbon Dioxide 21 L (22-30) mmol/L BUN 77 H (9-20) mg/dL Creatinine 2.88 H (0.66-1.25) mg/dL Glucose 109 H (74-99) mg/dL Calcium 6.7 L (8.4-10.2) mg/dL - Imaging Chest x-ray: report reviewed, image reviewed EKG: image reviewed Additional studies: Transesophageal echocardiogram results reviewed Assessment and Plan Assessment: 1. Bacterial endocarditis. 2. Septic shock with pneumonia this admission. Lactic acidosis on admission. 3. History of coronary artery disease with previous myocardial infarction status post coronary artery bypass graft surgery 4. Acute on chronic systolic heart failure with EF 30-35% 5. Acute on chronic renal failure 6. COPD with home oxygen 4 L/m 7. Obstructive sleep apnea with home CPAP 8. Hypothyroidism 9. History of bladder cancer 10. Prostate disorder 11. Previous Heller myotomy 12. Previous tobacco dependence Plan: The patient was seen and examined at the bedside. Chart/diagnostics were reviewed. The case was discussed in detail with Dr. Beltran. At this time we recommend continuing medical management including continuing antibiotic therapy to sterilize the blood, await negative blood cultures. The patient would be extremely high risk for repeat open heart surgery to repair or replace the mitral and/or the aortic valve. This was discussed in detail with the patient and his family. We'll continue to monitor the patient for continued clinical improvement. Medical management per primary care and multiple consultants. More recommendations to follow. Thank you Dr. Kilpatrick for this consult. We will continue to follow with you. Time with Patient: Greater than 30
--- NOTE | 2019-05-28 19:03 | PN ---
PROGRESS NOTE DATE OF SERVICE: 05/28/2019. REASON FOR FOLLOWUP: MSSA mitral valve endocarditis. INTERVAL HISTORY: The patient is currently afebrile. Patient is hemodynamically stable. He has been breathing comfortably. No nausea or vomiting has been noticed or any diarrhea. The patient did have JOSE completed this morning which the patient tolerated with evidence of mitral valve endocarditis. PHYSICAL EXAMINATION: Blood pressure 91/59 with a pulse of 80, temperature 98.4. He is 97% on 2 L nasal cannula. General description is an elderly male lying in bed in no distress. Respiratory system: Unlabored breathing. Clear to auscultation anteriorly. Heart S1, S2. Regular rate and rhythm. Abdomen soft. No tenderness. LABS: Blood cultures 05/27 have been negative so far. DIAGNOSTIC IMPRESSION AND PLAN: Patient with MSSA bacteremia secondary to mitral valve endocarditis. CT surgery has been consulted in view of the size of vegetation. The patient is on naficillin, to continue. Will need a PICC line and at least a 6 week course of IV antibiotic therapy. Continue supportive care. MMODL / IJN: [id number] / MTDD
[2019-05-28] MEDS: HYDROCORTISONE 10 MG TAB PO SCH (20:42)
[2019-05-28] MEDS: SERTRALINE 50 MG TAB PO SCH (20:42)
[2019-05-28] MEDS: MONTELUKAST 10 MG TAB PO SCH (20:42)
[2019-05-28] MEDS: ATORVASTATIN 20 MG TAB PO SCH (20:42)
--- NOTE | 2019-05-28 22:02 | P.PN ---
Subjective Progress Note Date: 05/28/19 Principal diagnosis: Septic shock 79-year-old pleasant gentleman came in with the shortness of breath and is being treated for sepsis possible source being pneumonia. Patient to sepsis improved significantly patient is off Levophed patient does have significant pulmonary edema from IV fluids and patient does have congestive heart failure ejection fraction at that to 35% received IV Lasix and this can you IV fluids will closely monitor his blood pressure patient normally has low blood pressure presently on Zosyn at this time. 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 05/23/2019 Patient wishes daily stable patient is receiving IV Lasix because of his pulmonary edema. Patient does have bacteremia with the staph aureus probably th e source of infection rather pneumonia or urinary tract infection patient will be switched to nafcillin discussed with infectious disease. Patient the has blood cultures that are positive second set of blood cultures are positive because of which echocardiogram will be obtained to rule out any endocarditis. Patient had low-grade fever yesterday we'll repeat blood cultures again today. Creatinine improved from 1.48 to 1.16. 05/24/2019 Patient's fevers resolved but blood cell count is improving. But patient remains bacteremic. Echocardiogram did not show any valvular lesions 9 DT astemizole which was replaced I had a lengthy discussion with the patient regarding her overall goals of care patient is agreeable for DO NOT RESUSCITATE but unsure whether he can make his own duration I'll discuss with the family regarding this. Patient prognosis is extremely poor because of possible endo carditis, bladder cancer, systolic heart failure patient is more appropriate for hospice and comfort care same thing was discussed the patient will also discuss with the family. Patient is quite a bit fatigued and he believes he is not in a 10 out of the hospital. 05/25/2019 patient is not doing well patient the blood cultures were positive from will repeat blood cultures tomorrow creatinine started going up patient blood pressure is still unstable patient is back on Levophed is still getting IV fluids patient does have pulmonary edema prognosis is extremely poor, will discuss with the family regarding hospice. Was unable to reach family yesterday 05/26/2019 Patient looks bit better today off levothyroid, patient today appears to able to my dictation because of which I had lengthy discussion with him regarding DO NOT RESUSCITATE patient wants to be full code because of which I do not believe it's reasonable to discuss regarding comfort care and hospice at this time. Although I did discuss with his regarding comfort care and hospice yesterday and patient's wanted to talk to me today in person as patient now wants everything to be done at believe that discussion is inappropriate and the patient will be continued on present treatment. Pulmonology believes patient may have an empyema. Patient most probably has an otitis and will need a JOSE cardiology was consulted for that. Repeat blood cultures will be obtained for today and tomorrow patient can use to have persistent bacteremia his prognosis although remains extremely poor. 05/27/2019 Patient is very lethargic but arousable. Currently on Levophed. Otherwise patient is being continued on antibiotics in the form of nafcillin for MSSA bacteremia. Repeat cultures have been negative so far. No fever no chills. Cardiology is following for possible JOSE to rule out vegetations. Chest x-ray showed persistent right greater than left bibasilar infiltrates/atelectasis and bilateral pleural effusions right greater than left. Patient otherwise saturating well on 4 L nausea cannula oxygen. WBC count improved to 9.4 from 12.7. BUN 74 and creatinine 2.65. Patient does have [place] catheter and fecal m anagement system. C. diff negative. Pt. still wants to be full code. 05/28/2019 Patient is lethargic but awake alert oriented 3 and is able to communicate. Patient had a JOSE done today showed circumferential mobile mass on the left anterior leaflet on the atrial side suggestive of vegetation. There is a sessile mass in the posterior leaflet of the mitral valve is again suggestive of vegetation. I aortic valve vegetation cannot be completely excluded. Patient is being continued on nafcillin. Cultures for the last 24-36 hours have been negative. Chest x-ray showed stable small to medium right effusion with adjacent atelectasis and/or consolidation. Patient was up Levophed this morning were was started back again later today. No fever no chills. WBC 6.9, sodium 131 and creatinine 2.88 Constitutional: Looks less fatigued and looks bit better Cardio vascular: denied any chest pain, palpitations Gastrointestinal denied any nausea vomiting Pulmonary: Does have shortness of breath Neurologic denied any new focal deficits All inpatient medications were reviewed and appropriate changes in these medications as dictated in the interval history and assessment and plan. Objective - Vital Signs Vital signs: Vital Signs Temp 97.4 F L 05/28/19 16:00 Pulse 83 05/28/19 19:46 Resp 20 05/28/19 19:00 BP 90/48 05/28/19 19:00 Pulse Ox 97 05/28/19 19:00 Intake & Output 05/28/19 05/28/19 05/29/19 06:59 18:59 06:59 Intake Total 780 1450 40 Output Total 500 372 35 Balance 280 1078 5 Weight 81.4 kg Intake: IV 780 850 40 0.9 480 550 40 Nafcillin 2 gm In 300 300 Dextrose 5% in Water 100 ml @ 50 mls/hr IVPB Q4HR LOUIE Rx#:[id number] Intake, IV Titration 0 Amount Norepinephrine 4 mg In 0 Sodium Chloride 0.9% 250 ml @ 0.05 MCG/KG/MIN 13. 826 mls/hr IV .[id number] LOUIE Rx#:[id number] Oral 600 Output: Urine 500 372 35 Other: Voiding Method Indwelling Catheter Indwelling Catheter - Exam GENERAL: The patient is alert and oriented x3, much less fatigued today looks bit better. Well developed, well nourished. HEENT: Pupils are round and equally reacting to light. EOMI. No scleral icterus. No conjunctival pallor. Normocephalic, atraumatic. No pharyngeal erythema. No thyromegaly. CARDIOVASCULAR: S1 and S2 present. No murmurs, rubs, or gallops. Does have elevated JVD PULMONARY: Clear to auscultation today no wheezing ABDOMEN: Soft, nontender, nondistended, normoactive bowel sounds. No palpable organomegaly. MUSCULOSKELETAL: No joint swelling or deformity. EXTREMITIES: No cyanosis, clubbing, or pedal edema. NEUROLOGICAL: Gross neurological examination did not reveal any focal deficits. SKIN: No rashes. - Labs CBC & Chem 7: 05/28/19 04:14 05/28/19 04:14 Labs: Abnormal Lab Results - Last 24 Hours (Table) 05/28/19 05/28/19 Range/Units 04:14 04:14 RBC 2.92 L (4.30-5.90) m/uL Hgb 8.6 L (13.0-17.5) gm/dL Hct 26.0 L (39.0-53.0) % RDW 16.4 H (11.5-15.5) % Plt Count 75 L (150-450) k/uL Lymphocytes # 0.9 L (1.0-4.8) k/uL Sodium 131 L (137-145) mmol/L Chloride 97 L (98-107) mmol/L Carbon Dioxide 21 L (22-30) mmol/L BUN 77 H (9-20) mg/dL Creatinine 2.88 H (0.66-1.25) mg/dL Glucose 109 H (74-99) mg/dL Calcium 6.7 L (8.4-10.2) mg/dL Microbiology - Last 24 Hours (Table) 05/26/19 05:53 Blood Culture Gram Stain - Final Blood Blood Culture - Final Coagulase Negative Staph Coagulase Negative Staph#2 05/25/19 05:56 Blood Culture - Preliminary Blood No Growth after 72 hours 05/27/19 04:46 Blood Culture - Preliminary Blood No Growth after 24 hours Assessment and Plan Assessment: -Sepsis, septic shock: shock improved. patient is still septic and bacteremic with associated to mitral valve vegetation/ infective endocarditis. Status post JOSE on 05/28/2019. Patient is presently on nafcillin remains to have persistent bacteremia. Patient is on norepinephrine and receiving IV fluids per does have pulmonary edema. -Acute hypoxic respiratory failure secondary to congestive heart failure exacerbation, patient blood pressure is low because of which patient received IV fluids patient does have significant crackles on exam receiving Lasix on as- needed basis whenever he can tolerate. -Lactic acidosis secondary to sepsis resolved now patient is presently receiving Lasix -Acute renal failure secondary to prerenal azotemia as well as acute tubular necrosis creatinine improved started going up again because of hypotension, sepsis and congestive heart failure -Hypervolemic hyponatremia secondary to congestive heart failure improving with Lasix. -Congestive heart failure chronic systolic dysfunction ejection fraction of 30- 35% with acute exacerbation, patient has ischemic cardiomyopathy -COPD chronic hypercapnic respiratory failure on oxygen at home. -Possibility of bladder cancer bladder cancer, following follows up with urology and a recent TURP which was incomplete and aborted secondary to hypotension -Coronary artery disease with previous CABG patient has recent cardiac catheterization which did not show any atherosclerotic occlusive disease that need intervention. -Hypertension -Hypothyroidism: Continue with levothyroxine -Benign prostatic hypertrophiy. -DVT prophylaxis with subcutaneous heparin twice a day Time with Patient: Greater than 30
[2019-05-29] MEDS: NAFCILLIN 2 GM in DEXTROSE 5% IN WATER 100 ML IVPB SCH ×10 (04:17→20:45)
[2019-05-29 05:04] LABS: Basophils % (A) 0 %; Eosinophils % (A) 1 %; HGB 7.7 gm/dL (13.0-17.5); Hypochromasia Slight; Lymphocytes # (A) 0.9 k/uL (1.0-4.8); Lymphocytes % (A) 14 %; MCH 29.1 pg (25.0-35.0); MCHC 32.2 g/dL (31.0-37.0); MCV 90.2 fL (80.0-100.0); Mean Platelet Volume 9.2; Monocytes # (A) 0.2 k/uL (0-1.0); Monocytes % (A) 3 %; Neutrophils # (A) 5.1 k/uL (1.3-7.7); Neutrophils % (A) 81 %; RBC 2.66 m/uL (4.30-5.90); RDW 15.9 % (11.5-15.5); WBC 6.2 k/uL (3.8-10.6)
[2019-05-29 05:19] LABS: Platelet Count 76 k/uL (150-450)
[2019-05-29 05:20] LABS: Magnesium 2.2 mg/dL (1.6-2.3); Potassium 3.4 mmol/L (3.5-5.1); Total Bilirubin 4.4 mg/dL (0.2-1.3); Total Protein 5.1 g/dL (6.3-8.2)
[2019-05-29 06:13] LABS: C Reactive Protein 172.2 mg/L (<10.0); Calcium 4.2 mg/dL (8.4-10.2)
[2019-05-29 06:21] LABS: Erythrocyte Sedimentation Rate 29 mm/hr (0-15)
[2019-05-29] MEDS ORDERED: POTASSIUM CHLORIDE ER 20 MEQ TAB.ER PO STA (06:27)
[2019-05-29] MEDS: PANTOPRAZOLE 40 MG TABLET PO SCH (06:35)
[2019-05-29] MEDS: MIDODRINE 5 MG TAB PO SCH ×3 (06:35→16:00)
[2019-05-29] MEDS: LEVOTHYROXINE 112 MCG TAB PO SCH (06:36)
[2019-05-29] MEDS ORDERED: CALCIUM GLUCONATE 2 GM in SODIUM CHLORIDE 0.9% 100 ML IVPB ONE (07:00)
[2019-05-29] MEDS ORDERED: POTASSIUM CHLORIDE ER 20 MEQ TAB.ER PO SCH (07:30)
--- NOTE | 2019-05-29 08:08 | XR ---
EXAMINATION TYPE: XR chest 1V portable DATE OF EXAM: 05/29/2019 CLINICAL HISTORY: Difficulty breathing progress study. TECHNIQUE: Single AP portable semiupright view of the chest is obtained. COMPARISON: Chest x-ray from one day earlier and older studies. FINDINGS: Overlying sternal wires and mediastinal clips are seen. [id number] right greater th an left pleural effusions with right greater than left bibasilar opacities redemonstrated. Upper lung s are clear without pneumothorax. Cardiac silhouette size is stable within normal limits. Osseous str uctures are intact. IMPRESSION: Overall stable findings, small to moderate size right greater than left pleural effusio ns with right greater than left bibasilar acute infiltrate and/or atelectasis are all redemonstrated.
[2019-05-29] MEDS: SYMBICORT 160-4.5 MCG INHALER INHALATION SCH ×2 (08:09→20:27)
[2019-05-29] MEDS: IPRATROPIUM-ALBUTEROL 3 ML NEB INHALATION SCH ×3 (08:09→20:27)
[2019-05-29] MEDS: HYDROPHILIC CREAM 180 GM TUBE TOPICAL SCH ×2 (08:45→20:46)
[2019-05-29] MEDS: OXYBUTYNIN XL 5 MG TAB.ER.24 PO SCH (08:45)
[2019-05-29] MEDS: NYSTATIN 100,000 UNIT/ML SUSP 500,000 UNIT/5 ML CUP PO SCH ×4 (08:45→21:05)
[2019-05-29] MEDS: HYDROCORTISONE 20 MG TAB PO SCH (08:45)
[2019-05-29] MEDS: POTASSIUM BICARBONATE/CIT AC 20 MEQ TABLET.EFF PO SCH ×2 (08:45→10:06)
[2019-05-29] MEDS: ASPIRIN 81 MG PO SCH (08:45)
[2019-05-29] MEDS: SODIUM BICARBONATE TAB 650 MG TAB PO SCH ×2 (08:46→20:45)
--- NOTE | 2019-05-29 10:28 | P.PN ---
Subjective Progress Note Date: 05/29/19 Principal diagnosis: Bacterial endocarditis of the mitral valve. Previous medical history of coronary artery disease with myocardial infarction status post coronary artery bypass graft surgery, chronic systolic congestive heart failure with EF 30-35%, chronic renal failure, COPD on home oxygen at 4 L/m, obstructive sleep apnea on home CPAP, hypothyroidism, bladder cancer, prostate disorder, previous Heller myotomy, and previous tobacco dependence. The patient is currently sitting up in bed in no acute distress. Denies chest pain, shortness of breath. Has remained off IV levo for 48 hours, blood pressure marginal but mean pressure stable. No new concerns. Objective - Vital Signs Vital signs: Vital Signs Temp 97.7 F 05/29/19 08:00 Pulse 92 05/29/19 10:00 Resp 12 05/29/19 10:00 BP 86/54 05/29/19 10:00 Pulse Ox 93 L 05/29/19 10:00 Intake & Output 05/28/19 05/29/19 05/29/19 18:59 06:59 18:59 Intake Total 1450 620 580 Output Total 372 507 115 Balance 1078 113 465 Weight 80.2 kg Intake: IV 850 620 220 0.9 550 520 120 Nafcillin 2 gm In 300 100 100 Dextrose 5% in Water 100 ml @ 50 mls/hr IVPB Q4HR [facility] Rx#:[id number] Intake, IV Titration 0 Amount Norepinephrine 4 mg In 0 Sodium Chloride 0.9% 250 ml @ 0.05 MCG/KG/MIN 13. 826 mls/hr IV .[id number] LOU[facility] Rx#:[id number] Oral 600 360 Output: Urine 372 507 115 Other: Voiding Method Indwelling Catheter Indwelling Catheter Indwelling Catheter - Constitutional General appearance: Present: cooperative, no acute distress - Respiratory Details: Lungs sounds diminished bilaterally. Respirations even, nonlabored. Currently on 2 L nasal cannula with oxygen saturation 99%. No clubbing or cyanosis present. - Cardiovascular Details: S1, S2 present. Regular rate and rhythm, sinus rhythm on telemetry. Palpable peripheral pulses bilaterally. Generalized edema present. No calf pain or tenderness noted. SCDs present. - Gastrointestinal Gastrointestinal Comment(s): Abdomen soft, nontender, nondistended. Active bowel sounds 4 quadrants. Tolerating diet. - Genitourinary Genitourinary Comment(s): [place] present draining clear, yellow urine. Output 35-50 mL per hour overnight. - Integumentary Integumentary Comment(s): Skin is warm and dry. - Neurologic Neurologic: Present: CNII-XII intact - Musculoskeletal Musculoskeletal: Present: generalized weakness, strength equal bilaterally - Psychiatric Psychiatric Comment(s): Alert and oriented 2. Pleasant and cooperative. - Allied health notes Allied health notes reviewed: nursing - Labs CBC & Chem 7: 05/29/19 04:31 05/29/19 04:31 Labs: Abnormal Lab Results - Last 24 Hours (Table) 05/29/19 05/29/19 Range/Units 04:31 04:31 RBC 2.66 L (4.30-5.90) m/uL Hgb 7.7 L (13.0-17.5) gm/dL Hct 24.0 L (39.0-53.0) % RDW 15.9 H (11.5-15.5) % Plt Count 76 L (150-450) k/uL Lymphocytes # 0.9 L (1.0-4.8) k/uL ESR 29 H (0-15) mm/hr Potassium 3.4 L (3.5-5.1) mmol/L Chloride 89 L (98-107) mmol/L Carbon Dioxide 16 L (22-30) mmol/L BUN 69 H (9-20) mg/dL Creatinine 2.83 H (0.66-1.25) mg/dL Glucose 102 H (74-99) mg/dL Calcium 4.2 L* (8.4-10.2) mg/dL Total Bilirubin 4.4 H (0.2-1.3) mg/dL C-Reactive Protein 172.2 H (<10.0) mg/L Total Protein 5.1 L (6.3-8.2) g/dL Albumin 2.0 L (3.5-5.0) g/dL Microbiology - Last 24 Hours (Table) 05/25/19 05:56 Blood Culture - Preliminary Blood No Growth after 96 hours 05/26/19 05:53 Blood Culture Gram Stain - Final Blood Blood Culture - Final Coagulase Negative Staph Coagulase Negative Staph#2 05/27/19 04:46 Blood Culture - Preliminary Blood No Growth after 48 hours - Imaging and Cardiology Chest x-ray: report reviewed, image reviewed Assessment and Plan Assessment: 1. Bacterial endocarditis. 2. Septic shock with pneumonia this admission. Lactic acidosis on admission. 3. History of coronary artery disease with previous myocardial infarction status post coronary artery bypass graft surgery 4. Acute on chronic systolic heart failure with EF 30-35% 5. Acute on chronic renal failure 6. COPD with home oxygen 4 L/m 7. Obstructive sleep apnea with home CPAP 8. Hypothyroidism 9. History of bladder cancer 10. Prostate disorder 11. Previous Heller myotomy 12. Previous tobacco dependence Plan: 1. Recommend completing 6 weeks of IV antibiotics to attempt to clear bacteremia. Blood cultures from 05/27/2019 preliminarily negative 48 hours. 2. Wean O2 as tolerated. Encourage incentive spirometry use. 3. Increase activity as tolerated. 4. The patient would be extremely high risk for repeat open heart surgery to repair/replacement mitral valve. Will revisit the case for surgery once patient has completed IV antibiotics. 5. Medical management per primary care and multiple consultants 6. More recommendations to follow Time with Patient: Greater than 30
--- NOTE | 2019-05-29 12:34 | PN ---
PROGRESS NOTE This is an 79-year-old patient with septic shock secondary to right lower lobe pneumonia. The patient had positive cultures for gram-positive cocci consistent with methicillin-sensitive Staph aureus. The patient also had a Klebsiella pneumoniae urinary tract infection. A transesophageal echocardiogram did reveal evidence of endocarditis. Surgery was consulted. The patient also has a history of acute on chronic hypoxemic respiratory failure, lactic acidosis, acute kidney injury and ATN, acute congestive heart failure exacerbation secondary to systolic dysfunction and a recent admission to the hospital for an episode of systolic CHF. Currently, the patient is doing reasonably well. Awaiting Thoracic input. Because of his age and his poor overall condition, he may not be a surgical candidate. The patient also has a history of bladder cancer, CAD, status post bypass grafting, hypertension, previous myocardial infarction, ischemic cardiomyopathy, chronic anemia and BPH. PHYSICAL EXAMINATION: VITAL SIGNS: Current vital signs are reviewed. His temperature is 97.7, heart rate 80, respiratory rate 19, blood pressure 113/71, mean 85, saturations are 95% on room air. GENERAL: Appears in no acute distress. HEENT: Examination is grossly unremarkable. Mucous membranes are moist. No supplemental oxygen. NECK: Supple. Full range of motion. No adenopathy or thyromegaly. Neck veins are flat. CARDIOVASCULAR: Examination reveals regular rhythm and rate. S1, S2 normal. No S3, S4. No distinct murmur noted. LUNGS: Reveal a few scattered rhonchi. No wheezes or crackles. Breath sounds are diminished throughout. ABDOMEN: Soft. Bowel sounds are heard. EXTREMITIES: Are intact. No edema. Pulses are intact. SKIN: Without rash. NEUROLOGIC: Examination is difficult to evaluate. He appears to move all 4 extremities well. Exam is nonfocal. LABS: Labs are reviewed. White count 6.2, hemoglobin 7.7, hematocrit 24, platelet count 76,000. Sodium 137, potassium 3.4, chloride 89, CO2 of 16. Anion gap is 32. BUN and creatinine were 69 and 2.83. His calcium is 4.2. His albumin is 2. The rest of his labs are reviewed. A chest x-ray that was done on the continues to show stable findings with a right greater than left pleural effusion. There is also some infiltrate or atelectasis at the bases. MEDICATIONS: Medications are reviewed. ASSESSMENT: 1. Acute septic shock secondary to right lower lobe pneumonia, healthcare acquired, secondary to methicillin sensitive Staphylococcus aureus with methicillin sensitive Staphylococcus aureus bacteremia. 2. Klebsiella pneumoniae urinary tract infection/urosepsis. 3. Acute on chronic hypoxemic respiratory failure. 4. Lactic acidosis, improved. 5. Acute kidney injury/acute tubular necrosis. 6. Anion gap metabolic acidosis. 7. Chronic congestive heart failure, with systolic dysfunction and ejection fraction of 30% to 35%. 8. Rule out non ST-segment elevation myocardial infarction. 9. History of chronic obstructive pulmonary disease, currently on oxygen. 10.History of chronic obstructive pulmonary disease. 11.Previous tobacco use. 12.History of bladder cancer, status post the TURP. 13.Status post bypass grafting. 14.Hypertension. 15.Previous myocardial infarction. 16.Chronic anemia. 17.History of benign prostatic hypertrophy. 18.Transesophageal echocardiogram evidence of endocarditis. PLAN: Currently the patient is being seen by Infectious Diseases and Cardiothoracic Surgery. He may not be a surgical candidate given his age and his multitude of medical problems. We will continue to follow. His respiratory status remains stable. Chest x-ray shows bilateral right greater than left pleural effusions and bibasilar infiltrates/atelectasis, right greater than left. No additional recommendations are made. Prognosis is guarded. MMODL / IJN: [id number] /
--- NOTE | 2019-05-29 13:34 | P.PN ---
Subjective Patient is seen in follow-up for acute kidney injury. Renal function is stable. Creatinine 2.83 today. He is nonoliguric. Patient has systolic CHF with ejection fraction of 30-35%. Does have edema in the lower extremities. No vomiting or diarrhea. He has received 40 mg IV Lasix the last 2 days. Underwent JOSE yesterday which was suggestive of endocarditis of the mitral valve. Vital signs are stable. General: The patient appeared well nourished and normally developed. HEENT: Head exam is unremarkable. Neck is without jugular venous distension. LUNGS: Breath sounds decreased. HEART: Rate and Rhythm are regular. First and second heart sounds normal. No murmurs, rubs or gallops. ABDOMEN: Abdominal exam reveals normal bowel sounds. Non-tender and non- distended. No evidence of peritonitis. EXTREMITITES: 1+ edema. Objective - Vital Signs Vital signs: Vital Signs Temp 97.7 F 05/29/19 12:00 Pulse 82 05/29/19 12:00 Resp 18 05/29/19 12:00 BP 107/69 05/29/19 12:00 Pulse Ox 95 05/29/19 12:00 Intake & Output 05/28/19 05/29/19 05/29/19 18:59 06:59 18:59 Intake Total 1450 620 620 Output Total 372 507 145 Balance 1078 113 475 Weight 80.2 kg 80.2 kg Intake: IV 850 620 260 0.9 550 520 160 Nafcillin 2 gm In 300 100 100 Dextrose 5% in Water 100 ml @ 50 mls/hr IVPB Q4HR [facility] Rx#:[id number] Intake, IV Titration 0 Amount Norepinephrine 4 mg In 0 Sodium Chloride 0.9% 250 ml @ 0.05 MCG/KG/MIN 13. 826 mls/hr IV .[id number] [facility] Rx#:[id number] Oral 600 360 Output: Urine 372 507 145 Other: Voiding Method Indwelling Catheter Indwelling Catheter Indwelling Catheter - Labs CBC & Chem 7: 05/29/19 04:31 05/29/19 12:16 Labs: Abnormal Lab Results - Last 24 Hours (Table) 05/29/19 05/29/19 05/29/19 Range/Units 04:31 04:31 12:16 RBC 2.66 L (4.30-5.90) m/uL Hgb 7.7 L (13.0-17.5) gm/dL Hct 24.0 L (39.0-53.0) % RDW 15.9 H (11.5-15.5) % Plt Count 76 L (150-450) k/uL Lymphocytes # 0.9 L (1.0-4.8) k/uL ESR 29 H (0-15) mm/hr Potassium 3.4 L 5.2 H (3.5-5.1) mmol/L Chloride 89 L (98-107) mmol/L Carbon Dioxide 16 L (22-30) mmol/L BUN 69 H (9-20) mg/dL Creatinine 2.83 H (0.66-1.25) mg/dL Glucose 102 H (74-99) mg/dL Calcium 4.2 L* (8.4-10.2) mg/dL Total Bilirubin 4.4 H (0.2-1.3) mg/dL C-Reactive Protein 172.2 H (<10.0) mg/L Total Protein 5.1 L (6.3-8.2) g/dL Albumin 2.0 L (3.5-5.0) g/dL Microbiology - Last 24 Hours (Table) 05/25/19 05:56 Blood Culture - Preliminary Blood No Growth after 96 hours 05/26/19 05:53 Blood Culture Gram Stain - Final Blood Blood Culture - Final Coagulase Negative Staph Coagulase Negative Staph#2 05/27/19 04:46 Blood Culture - Preliminary Blood No Growth after 48 hours Assessment and Plan Plan: Assessment: 1. Acute kidney injury secondary to ATN secondary to sepsis. Creatinine stable at 2.83 today. Baseline creatinine is near 1. Rule out GN - serologies negative. UPC 2.47 g. urine eosinophils negative. 2. Hyponatremia secondary to acute kidney injury. Patient is hypervolemic. Improved. 3. Lower extremity edema. 4. Staph aureus bacteremia maintained on IV antibiotics. Etiology is endocarditis with vegetation on the mitral valve. Cardiothoracic surgery follow ing. 5. Metabolic acidosis secondary to acute kidney injury. 6. Systolic CHF with ejection fraction of 30-35%. 7. Hypocalcemia due to acute kidney injury and hypoalbuminemia. Corrected calcium 5.8. Status post 2 g IV calcium this morning. Plan: Start Lasix 40 mg IV daily. Increase dose of oral sodium bicarbonate. Avoid nephrotoxins. Continue to monitor renal function and urine output.
[2019-05-29] MEDS: FUROSEMIDE 10 MG/ML 4 ML VIAL IV SCH (14:12)
--- NOTE | 2019-05-29 15:04 | P.PN ---
Subjective Progress Note Date: 05/29/19 This is a 79-year-old gentleman who has been in this hospital since 05/21/2019. Patient is admitted with the diagnosis of cardiac myopathy, dyslipidemia, hypothyroidism, coronary artery disease and also with complaints of fever or chills. His blood cultures are positive for staph aureus. A JOSE examination is requested because of bacteremia. Patient was seen by Dr. Gayle and felt that patient was confused yesterday. He would consider and patient is more stable. Patient is alert and doesn't appear to be in acute distress at this time. Still seemed to be somewhat confused. His last blood culture apparently was negative. I will discuss with Dr. Gayle about timing of the JOSE. Meanwhile continue with antibiotic therapy. 05/28/2019: This 79-year-old gentleman is being treated for sepsis, renal failure, cardiomyopathy and probably some element of congestive heart failure. Patient is not feeling well. He complaints of back pain. His also complains of shortness of breath. He is oliguric. His chest x-ray shows a right-sided infiltrates and effusion. Patient's IV fluids were cut back and was given IV Lasix by nephrology, yesterday. ID specialist once JOSE. Discussed with patient and also his and we plan to the JOSE around 11:00. Meanwhile continue with antibiotic therapy. Prognosis is guarded. His creatinine has gone up, and prior patient may need dialysis if the renal function doesn't improve. Prognosis is poor. 05/29/2019: This patient remains relatively stable. No fevers. Patient is eating poorly. Denies any chest pain but complains of shortness of breath. His creatinine is about 2.83. He remains nonoliguric. Patient was seen by cardiac surgery. [place] to be a high risk candidate for surgery. Advised continued antibiotic therapy. His lungs show diminished breath sounds. Heart sounds are distant and difficult to appreciate any murmurs. We'll continue current medical therapy. Prognosis is guarded Objective - Vital Signs Vital signs: Vital Signs Temp 97.7 F 05/29/19 12:00 Pulse 82 05/29/19 12:00 Resp 18 05/29/19 12:00 BP 107/69 05/29/19 12:00 Pulse Ox 95 05/29/19 12:00 Intake & Output 05/28/19 05/29/19 05/29/19 18:59 06:59 18:59 Intake Total 1450 620 620 Output Total 372 507 145 Balance 1078 113 475 Weight 80.2 kg 80.2 kg Intake: IV 850 620 260 0.9 550 520 160 Nafcillin 2 gm In 300 100 100 Dextrose 5% in Water 100 ml @ 50 mls/hr IVPB Q4HR [facility] Rx#:[id number] Intake, IV Titration 0 Amount Norepinephrine 4 mg In 0 Sodium Chloride 0.9% 250 ml @ 0.05 MCG/KG/MIN 13. 826 mls/hr IV .[id number] [facility] Rx#:[id number] Oral 600 360 Output: Urine 372 507 145 Other: Voiding Method Indwelling Catheter Indwelling Catheter Indwelling Catheter - Exam GENERAL EXAM: Patient is alert and somewhat confused HEENT: Normocephalic. Normal reaction of pupils, equal size, normal range of extraocular motion. No erythema or exudates in the throat. NECK: No masses, no nuchal rigidity. CHEST: No chest wall deformity. LUNGS: Decreased air entry, especially on the left side HEART: S1 and S2 normal with no audible mumurs or gallops. Regular rhythm, femorals equal on both sides.. ABDOMEN: No hepatosplenomegaly, normal bowel sounds, no guarding or rigidity. SKIN: No rashes CENTRAL NERVOUS SYSTEM: No gross deficits EXTREMITIES: No cyanosis, clubbing or edema. - Labs CBC & Chem 7: 05/29/19 04:31 05/29/19 12:16 Labs: Abnormal Lab Results - Last 24 Hours (Table) 05/29/19 05/29/19 05/29/19 Range/Units 04:31 04:31 12:16 RBC 2.66 L (4.30-5.90) m/uL Hgb 7.7 L (13.0-17.5) gm/dL Hct 24.0 L (39.0-53.0) % RDW 15.9 H (11.5-15.5) % Plt Count 76 L (150-450) k/uL Lymphocytes # 0.9 L (1.0-4.8) k/uL ESR 29 H (0-15) mm/hr Potassium 3.4 L 5.2 H (3.5-5.1) mmol/L Chloride 89 L (98-107) mmol/L Carbon Dioxide 16 L (22-30) mmol/L BUN 69 H (9-20) mg/dL Creatinine 2.83 H (0.66-1.25) mg/dL Glucose 102 H (74-99) mg/dL Calcium 4.2 L* (8.4-10.2) mg/dL Total Bilirubin 4.4 H (0.2-1.3) mg/dL C-Reactive Protein 172.2 H (<10.0) mg/L Total Protein 5.1 L (6.3-8.2) g/dL Albumin 2.0 L (3.5-5.0) g/dL Microbiology - Last 24 Hours (Table) 05/25/19 05:56 Blood Culture - Preliminary Blood No Growth after 96 hours 05/26/19 05:53 Blood Culture Gram Stain - Final Blood Blood Culture - Final Coagulase Negative Staph Coagulase Negative Staph#2 05/27/19 04:46 Blood Culture - Preliminary Blood No Growth after 48 hours Assessment and Plan (1) Staphylococcus aureus bacteremia Current Visit: Yes Status: Acute Code(s): R78.81 - BACTEREMIA SNOMED Code(s): 431732413 (2) Cardiomyopathy Current Visit: Yes Status: Acute Code(s): I42.9 - CARDIOMYOPATHY, UNSPECIFIED SNOMED Code(s): 44847766 (3) Congestive heart failure Current Visit: Yes Status: Acute Code(s): I50.9 - HEART FAILURE, UNSPECIFIED SNOMED Code(s): 43245136 (4) Pleural effusion Current Visit: Yes Status: Acute Code(s): J90 - PLEURAL EFFUSION, NOT ELSEWHERE CLASSIFIED SNOMED Code(s): 08138180 (5) Pneumonia Current Visit: Yes Status: Acute Code(s): J18.9 - PNEUMONIA, UNSPECIFIED ORGANISM SNOMED Code(s): 191382985 (6) Sepsis Current Visit: Yes Status: Acute Code(s): A41.9 - SEPSIS, UNSPECIFIED ORGANISM SNOMED Code(s): 94338756 Plan: Continue current medical therapy including antibiotics. Patient is not eating well. Doesn't appear to be in acute distress. Renal functions remain stable. We'll continue current management and follow closely
[2019-05-29] MEDS: SODIUM CHLORIDE 0.9% 1,000 ML IV SCH (16:01)
[2019-05-29] MEDS: CHOLESTYRAMINE (WITH SUGAR) 4 GM PACKET PO SCH (18:00)
--- NOTE | 2019-05-29 19:42 | PN ---
PROGRESS NOTE DATE OF SERVICE: 05/29/2019. REASON FOR FOLLOWUP: MSSA bacteremia secondary to mitral valve endocarditis. INTERVAL HISTORY: The patient is currently afebrile. He is hemodynamically stable, breathing comfortably. No chest pain. Occasional cough. No abdominal pain. He still has some diarrhea with fecal management system, RN mentioned. No worsening stool output, though. PHYSICAL EXAMINATION: Blood pressure 102/62 with a pulse of 89, temperature 97.7. He is 96% on room air. General description is an elderly male lying in bed in no distress. RESPIRATORY SYSTEM: Unlabored breathing. Clear to auscultation anteriorly. HEART: S1, S2. Regular rate and rhythm. ABDOMEN: Soft. No tenderness. LABS: Blood cultures from 05/27 as well as 05/26 have been negative. DIAGNOSTIC IMPRESSION AND PLAN: 1. Patient with methicillin-susceptible Staphylococcus aeruginosa bacteremia secondary to mitral valve endocarditis. CT Surgery has seen the patient and recommended continued antibiotic therapy and no surgical intervention. The patient at this time is nafcillin 2 grams q.4 hours; to continue. He is clear to get a PICC line for outpatient IV antibiotic therapy. 2. Diarrhea, antibiotic-associated. Stool for C difficile is negative. Will add Questran for symptomatic relief. MMODL / IJN: [id number] /
[2019-05-29] MEDS: ATORVASTATIN 20 MG TAB PO SCH (20:45)
[2019-05-29] MEDS: SERTRALINE 50 MG TAB PO SCH (20:45)
[2019-05-29] MEDS: MONTELUKAST 10 MG TAB PO SCH (20:45)
[2019-05-29] MEDS: HYDROCORTISONE 10 MG TAB PO SCH (20:45)
[2019-05-30] MEDS: NAFCILLIN 2 GM in DEXTROSE 5% IN WATER 100 ML IVPB SCH ×14 (00:48→23:28)
[2019-05-30 06:12] LABS: Anisocytosis Slight; HCT 26.1 % (39.0-53.0); HGB 8.4 gm/dL (13.0-17.5); MCH 28.8 pg (25.0-35.0); Mean Platelet Volume 8.1; Platelet Count 105 k/uL (150-450); RDW 16.1 % (11.5-15.5); WBC 7.6 k/uL (3.8-10.6)
[2019-05-30 06:22] LABS: Potassium 4.6 mmol/L (3.5-5.1)
[2019-05-30 06:56] LABS: Calcium 6.7 mg/dL (8.4-10.2)
[2019-05-30] MEDS: LEVOTHYROXINE 112 MCG TAB PO SCH (06:58)
[2019-05-30] MEDS: PANTOPRAZOLE 40 MG TABLET PO SCH (06:58)
[2019-05-30] MEDS: MIDODRINE 5 MG TAB PO SCH ×3 (06:58→17:07)
[2019-05-30] MEDS: SYMBICORT 160-4.5 MCG INHALER INHALATION SCH ×2 (07:24→19:18)
[2019-05-30] MEDS: IPRATROPIUM-ALBUTEROL 3 ML NEB INHALATION SCH ×3 (07:24→19:18)
[2019-05-30] MEDS: ASPIRIN 81 MG PO SCH (08:08)
[2019-05-30] MEDS: SODIUM BICARBONATE TAB 650 MG TAB PO SCH ×2 (08:08→21:02)
[2019-05-30] MEDS: HYDROCORTISONE 20 MG TAB PO SCH (08:09)
[2019-05-30] MEDS: FUROSEMIDE 10 MG/ML 4 ML VIAL IV SCH ×3 (08:09→23:28)
[2019-05-30] MEDS: OXYBUTYNIN XL 5 MG TAB.ER.24 PO SCH (08:09)
[2019-05-30] MEDS: HYDROPHILIC CREAM 180 GM TUBE TOPICAL SCH ×2 (08:09→21:04)
[2019-05-30] MEDS: CHOLESTYRAMINE (WITH SUGAR) 4 GM PACKET PO SCH ×2 (08:10→17:08)
[2019-05-30] MEDS: NYSTATIN 100,000 UNIT/ML SUSP 500,000 UNIT/5 ML CUP PO SCH ×4 (08:10→21:02)
--- NOTE | 2019-05-30 09:33 | P.PN ---
Subjective Progress Note Date: 05/30/19 This is a 79-year-old gentleman who has been in this hospital since 05/21/2019. Patient is admitted with the diagnosis of cardiac myopathy, dyslipidemia, hypothyroidism, coronary artery disease and also with complaints of fever or chills. His blood cultures are positive for staph aureus. A JOSE examination is requested because of bacteremia. Patient was seen by Dr. Gayle and felt that patient was confused yesterday. He would consider and patient is more stable. Patient is alert and doesn't appear to be in acute distress at this time. Still seemed to be somewhat confused. His last blood culture apparently was negative. I will discuss with Dr. Gayle about timing of the JOSE. Meanwhile continue with antibiotic therapy. 05/28/2019: This 79-year-old gentleman is being treated for sepsis, renal failure, cardiomyopathy and probably some element of congestive heart failure. Patient is not feeling well. He complaints of back pain. His also complains of shortness of breath. He is oliguric. His chest x-ray shows a right-sided infiltrates and effusion. Patient's IV fluids were cut back and was given IV Lasix by nephrology, yesterday. ID specialist once JOSE. Discussed with patient and also his and we plan to the JOSE around 11:00. Meanwhile continue with antibiotic therapy. Prognosis is guarded. His creatinine has gone up, and prior patient may need dialysis if the renal function doesn't improve. Prognosis is poor. 05/29/2019: This patient remains relatively stable. No fevers. Patient is eating poorly. Denies any chest pain but complains of shortness of breath. His creatinine is about 2.83. He remains nonoliguric. Patient was seen by cardiac surgery. [place] to be a high risk candidate for surgery. Advised continued antibiotic therapy. His lungs show diminished breath sounds. Heart sounds are distant and difficult to appreciate any murmurs. We'll continue current medical therapy. Prognosis is guarded. 05/30/2019: The patient is still intensive care unit. He remains frail. Denies any acute distress. No complaints of any chest pain. Patient is not eating well. His blood pressure is maintaining about 100 systolic. Patient is on Midodrin. Patient is nonoliguric. His creatinine has gone up. His Lasix is being held. Patient is seen by cardiac surgeon felt to be at high risk candidate for surgery. Advised continuation of antibiotic therapy. Prognosis is guarded Objective - Vital Signs Vital signs: Vital Signs Temp 97.3 F L 05/30/19 08:00 Pulse 89 05/30/19 08:00 Resp 24 05/30/19 08:00 BP 95/74 05/30/19 08:00 Pulse Ox 95 05/30/19 08:00 Intake & Output 05/29/19 05/30/19 05/30/19 18:59 06:59 18:59 Intake Total 1260 1020 Output Total 295 380 Balance 965 640 Weight 80.2 kg 80.2 kg Intake: IV 660 780 0.9 360 480 Nafcillin 2 gm In 300 300 Dextrose 5% in Water 100 ml @ 50 mls/hr IVPB Q4HR [facility] Rx#:[id number] Oral 600 240 Output: Urine 295 380 Other: Voiding Method Indwelling Catheter Urinal Urinal - Exam GENERAL EXAM: Patient is alert and somewhat confused HEENT: Normocephalic. Normal reaction of pupils, equal size, normal range of extraocular motion. No erythema or exudates in the throat. NECK: No masses, no nuchal rigidity. CHEST: No chest wall deformity. LUNGS: Decreased air entry, especially on the left side HEART: S1 and S2 normal with no audible mumurs or gallops. Regular rhythm, femorals equal on both sides.. ABDOMEN: No hepatosplenomegaly, normal bowel sounds, no guarding or rigidity. SKIN: No rashes CENTRAL NERVOUS SYSTEM: No gross deficits EXTREMITIES: Swelling of the left leg - Labs CBC & Chem 7: 05/30/19 05:05 05/30/19 05:05 Labs: Abnormal Lab Results - Last 24 Hours (Table) 05/29/19 05/30/19 05/30/19 Range/Units 12:16 05:05 05:05 RBC 2.90 L (4.30-5.90) m/uL Hgb 8.4 L (13.0-17.5) gm/dL Hct 26.1 L (39.0-53.0) % RDW 16.1 H (11.5-15.5) % Plt Count 105 L (150-450) k/uL Sodium 132 L (137-145) mmol/L Potassium 5.2 H (3.5-5.1) mmol/L Chloride 97 L (98-107) mmol/L Carbon Dioxide 21 L (22-30) mmol/L BUN 76 H (9-20) mg/dL Creatinine 3.35 H (0.66-1.25) mg/dL Glucose 110 H (74-99) mg/dL Calcium 6.7 L (8.4-10.2) mg/dL Ionized Calcium Heaven 4.0 L (4.5-5.3) mg/dL Microbiology - Last 24 Hours (Table) 05/25/19 05:56 Blood Culture - Preliminary Blood No Growth after 120 hours 05/27/19 04:46 Blood Culture - Preliminary Blood No Growth after 72 hours 05/26/19 05:53 Blood Culture Gram Stain - Final Blood Blood Culture - Final Coagulase Negative Staph Coagulase Negative Staph#2 Assessment and Plan (1) Staphylococcus aureus bacteremia Current Visit: Yes Status: Acute Code(s): R78.81 - BACTEREMIA SNOMED Code(s): 220497451 (2) Cardiomyopathy Current Visit: Yes Status: Acute Code(s): I42.9 - CARDIOMYOPATHY, UNSPECIFIED SNOMED Code(s): 61786133 (3) Congestive heart failure Current Visit: Yes Status: Acute Code(s): I50.9 - HEART FAILURE, UNSPECIFIED SNOMED Code(s): 66367884 (4) Pleural effusion Current Visit: Yes Status: Acute Code(s): J90 - PLEURAL EFFUSION, NOT ELSEWH ERE CLASSIFIED SNOMED Code(s): 78946273 (5) Pneumonia Current Visit: Yes Status: Acute Code(s): J18.9 - PNEUMONIA, UNSPECIFIED ORGANISM SNOMED Code(s): 228062500 (6) Sepsis Current Visit: Yes Status: Acute Code(s): A41.9 - SEPSIS, UNSPECIFIED ORGANISM SNOMED Code(s): 43927923 Plan: Patient is being treated for endocarditis and sepsis and also renal failure. He is known to have cardiomyopathy and chronic CHF. Patient is also has acute renal failure. Overall his prognosis is guarded. [place] to be high risk candidate for surgery and antibiotic therapy is recommended for 6 weeks. Prognosis poor
--- NOTE | 2019-05-30 09:58 | P.PN ---
Subjective Progress Note Date: 05/30/19 Principal diagnosis: Acute septic shock secondary to right lower lobe pneumonia, this is likely healthcare acquired pneumonia and gram-positive bacteremia. MSSA. This is a 79-year-old white male patient of Dr. Wallace, with extensive medical history, was recently hospitalized for acute exacerbation of systolic congestive heart failure with an EF of 30-35%, acute hypoxic failure related to CHF, acute on chronic renal failure. Following his discharge on 05/16/2019 patient went to [facility] for rehab. On 05/20/2019 patient was brought into the hospital for evaluation of worsening shortness of breath, fever chills, increased sputum production. Denied any nausea or vomiting, patient also complained of penile pain, and dysuria. Patient does have a history of COPD on home oxygen at 4 L. Other medical history includes CAD with history of bypass grafting, bladder c ancer, patient follows with Dr. Calvert from urology, hyperlipidemia, previous myocardial infarction, osteoarthritis, sleep apnea on CPAP therapy, prostate disorder, hypothyroidism, chronic back pain, and previous history of smoking. Chest x-ray was completed showing small bilateral pleural effusions, bibasilar atelectasis and diffuse interstitial and hazy opacities with the possibility of interstitial pneumonia, and fluid overload. Lab work was positive for leukocytosis, white blood cell count is 31.3, hemoglobin is 7.4, patient had 23% bandemia, correlation profile was within normal limits, serum sodium was 133, potassium 3.4, chloride was 92, CO2 is 31, BUN was 61, creatinine is 2.42. La ctic acid was 4.8 patient was given 2 L of IV fluids, this morning his lactic acid is 2.8, troponins were positive at 0.173, and 0.121. [place] [address], urinalysis showed large amount of blood, 1+ protein, large amount of leuk trase, rare white blood cell and rare bacteria, doubt underlying urinary tract infection. Influenza screen was negative. Patient was initially admitted to stepdown floor, this morning his febrile, with a temp of 102.2, patient is tachycardic the heart rate up to 120 BPM, blood pressures are marginal, 99/71, and subsequent one was systolic in the 80s. Patient was given additional liter bolus, broad-spectrum antibiotics were started in the form of Zosyn. Blood cul tures were sent on admission, we will obtain additional set of blood cultures, urinalysis, sputum culture. Patient is being transferred to the intensive care unit. Reevaluated today on 05/22/2019, patient remains in the ICU, I saw him yesterday, and arrange for the transferred to the ICU. During my evaluation, the patient was noted to be septic, he was transferred to the ICU and received a total of 3 L of fluids, and he was placed on a short. This time on norepinephrine for low blood pressure. Patient was on norepinephrine for few hours, today he is hemodynamically stable, feeling a bit better, chest x-ray clearly shows evidence of right lower lobe pneumonia and interstitial edema bilaterally. Hence the patient will be given a dose of Lasix, and his IV fluids will be cut down to 50 mL per hour. Blood cultures are positive for gram-positive cocci, hence vancomycin was added. In the meantime we will continue Zosyn until the final identification and sensitivity noted from the blood cultures. WBC count today is down to 23.8 hemoglobin is 8.6 electrolytes are normal BUN is 53 creatinine is 1.48, improving compared to 2.42 on admission. Troponin was noted to be 0.069. Potassium is 3.5 be corrected as per protocol. Reevaluated today on 05/23/2019, patient remains in the ICU, off norepinephrine, hemodynamically stable, urine output is marginal but improving with diuretics, and he was given a dose of Lasix earlier today. Overall the patient is slightly better compared to his presentation. Chest x-ray continues to showsome component of congestive heart failure, and some component of patchy infiltrates in the right lower lobe. Small pleural effusion is noted right greater than left.WBC count remains elevated at 25.2 hemoglobin is 10.3. Electrodes are normal BUN is improving creatinine is also improving down to 1.16.patient is off norepinephrine today. Troponin level is slightly elevated at 0.069, Patient was reevaluated today on 05/24/2019, remains in the ICU, off norepinephrine, feeling better, breathing easier, however his chest x-ray continues to show some interstitial edema Lasix was given 40 mg IV push times one. Cut down his fluid down to 50 mL per hour. Clinically the patient is feeling better, breathing a lot easier, chest x-ray is still concerning, and his blood pressure remains marginal but he normally runs a low blood pressure. WBC down to 20.9 his electrolytes are normal except for low potassium being corrected. BUN is 48 creatinine 1.18. His blood cultures came back positive for MSSA. Patient is now on nafcillin as per infectious disease on the case. Other antibiotics have been discontinued. Reevaluated today on 05/25/2019, patient remains off norepinephrine, blood pressure remains low marginal. Responds well to IV Lasix given on a daily basis as needed. IV fluids remains at 50 mL per hour. Continues to have positive blood cultures, and a transesophageal echocardiogram should be done by cardiology. His blood cultures remain positive since admission. Patient remains on antibiotics as per infectious disease on the case. Chest x-ray showed right lower lobe consolidation, and possibly a small right-sided pleural effusion. Minimal effusion noted on the left. WBC count is coming down to 15.9 it was quite elevated on admission. It was 20.9 yesterday and a 25.22 days ago. His electrolytes are normal BUN however is up to 59, and creatinine is up to 1.35, we'll continue cautious hydration and hold on diuretics. Patient does have poor LV function and the findings on his renal status could be related to diuretics as well as cardiorenal in nature. Reevaluated today on 05/26/2019, patient is back on norepinephrine today at 0.06 mcg/kg/m. Patient had low blood pressure last night, low urine output, hence he is now back on norepinephrine, and he is receiving IV fluid at 70 mL per hour. Will hold on any diuretics today. Patient continues to have positive blood cultures, initiated a cardiology consultation yesterday, not seen yet by cardiology, patient will definitely require transesophageal echocardiogram to document endocarditis and to explain his persistent positive blood cultures. Ultrasound of the chest did not show enough pleural effusion on the right side to consider safe thoracentesis. Hence no thoracentesis will be done. His transthoracic echocardiogram did show evidence of poor LV function with ejection fraction of 30-35 percent. And hopefully a transesophageal echo could be done tomorrow. Clinically the patient is slightly confused, he is not in any form of respiratory distress. Chest x-ray continues to show air space disease in the right lower lobe and small tiny right-sided pleural effusion. Also there is evidence of mild pulmonary edema. On 05/27/2019 patient seen in follow-up in the intensive care unit. He is lethargic, but easily arousable, denies any acute distress, currently on 4 L of oxygen per nasal cannula, pulse ox of 98%, afebrile, he remains on small dose of levothyroid at 2 mics per minute, and maintenance IV fluids 0.9 normal saline at a rate of 75 ML per hour, Currently on nafcillin for MSSA bacteremia, was also treated with a combination of Zosyn, Levaquin and later with cefepime which have all been discontinued now for evidence of Klebsiella pneumonia in the urine culture. No fever or chills, no signs of respiratory distress, follow-up blood cultures starting on 05/25, 05/26 have been negative. Cardiology is following and will decide on the timing of the JOSE. His chest x-ray has been reviewed showing persistent right greater than left bibasilar infiltrates and/or atelectasis and bilateral pleural effusions right greater than left. Patient is maintaining stable oxygenation, he normally wears 3 L of oxygen at home, he is currently on 4 which can actually be titrated down, today's labs have been reviewed, showing white blood cell count is trending, down to 9.4 on today's labs from 12.7, hemoglobin is 9.1, serum sodium is 131, potassium is 4.0, chloride is 97, CO2 is 20, BUN is 75, creatinine is 2.65. [place] catheter is in, draining clear urine, ranging 35-50 ML per hour. Patient has a fecal management system as in with liquid output and C. diff was negative. On 05/28/2019 patient seen in follow-up in the intensive care unit, she is resting in bed, appears fatigued, but no acute distress, is on 4 L of oxygen, his pulse ox is 98-100%. Denies any specific complaints, no shortness of breath, no component of chest pain, levo fed has been on hold since 12:00 yesterday on 05/27/2019. Today's labs have been reviewed, showing a white blood cell count is 6.9, hemoglobin of 8.6, sodium of 131, potassium is 3.5, chloride is 97, CO2 is 21, BUN 77, and creatinine is 2.8. Ration is on nafcillin for evidence of Staphylococcus aureus, susceptible to oxacillin. Urine culture on the was positive for Klebsiella pneumonia patient has been treated with Zosyn, Levaquin and later cefepime. No fever or chills, sinus rhythm on the monitor, follow-up cultures are pending, patient has been having daily repeat blood cultures, JOSE is pending sometime today. On 05/29/2019 she seen again in follow-up in the intensive care unit, seems very fatigued and worn out, but no acute distress, he denies any shortness of breath, his lung sounds are clear to auscultation, no rales, no rhonchi, room air pulse ox is 95%, maintenance IV 0.9 normal saline at a rate of 50 ML per hour, patient is receiving daily Lasix IV 40 mg. On today's labs patient's renal profile was noted to be worsening, with BUN up to 76 and creatinine 3.35. Blood cell, 7.6, hemoglobin of 8.4, serum sodium is 132, chloride is 97, CO2 is 21, calcium is 6.7, yesterday we received a call from the dietitian who stated that patient's oral intake has been extremely poor, patient is consuming less than 25% of his meals and he is not consuming any supplementation in the form of ensure. Patient's serum albumin is low at 2.0, he is developing third spacing, gen eralized edema. Yesterday his chest x-ray showed a small to moderate-sized right greater than left pleural effusions. From pulmonary perspective patient is not complaining of any shortness of breath, no cough or congestion, occasional production of clear colored sputum. No fever or chills, follow-up blood cultures positive for coagulase-negative staph, and culture from 05/27/2019 has shown no growth at the 72 hour bonifacio. ID service is following, and patient is being treated with IV antibiotic therapy JOSE was completed showing questionable mobile lesion in the highly calcified aortic valve and a vegetation could not be completely excluded, in addition there was a 1 cm circumferential mobile mass on the anterior leaflet on the atrial side suggestive of vegetation and a mobile circumferential mass on the posterior mitral leaflet suggestive of vegetation. LV function. To be moderately to severely impaired. In view of endocarditis patient was referred to CT surgery for evaluation for possibility of surgical intervention, who has recommended completing 6 weeks of antibiotics, and patient is an extremely high risk for surgical intervention, and medical treatment was recommended at this time. Objective - Vital Signs Vital signs: Vital Signs Temp 97.3 F L 05/30/19 08:00 Pulse 89 05/30/19 08:00 Resp 24 05/30/19 08:00 BP 95/74 05/30/19 08:00 Pulse Ox 95 05/30/19 08:00 Intake & Output 05/29/19 05/30/19 05/30/19 18:59 06:59 18:59 Intake Total 1260 1020 Output Total 295 380 Balance 965 640 Weight 80.2 kg 80.2 kg Intake: IV 660 780 0.9 360 480 Nafcillin 2 gm In 300 300 Dextrose 5% in Water 100 ml @ 50 mls/hr IVPB Q4HR [facility] Rx#:[id number] Oral 600 240 Output: Urine 295 380 Other: Voiding Method Indwelling Catheter Urinal Urinal - Exam GENERAL EXAM: Somnolent, but easily arousable, 79-year-old white male, fatigue, weak currently on 4L of oxygen with a pulse ox of 99%, no signs of distress HEAD: Normocephalic/atraumatic. EYES: Normal reaction of pupils, equal size. Conjunctiva pink, sclera white. NOSE: Clear with pink turbinates. THROAT: No erythema or exudates. NECK: No masses, no JVD, no thyroid enlargement, no adenopathy. CHEST: No chest wall deformity. Symmetrical expansion. LUNGS: There breath sounds bilaterally, no rhonchi, no wheezing, no rales CVS: Regular rate and rhythm, normal S1 and S2, no gallops, no murmurs, no rubs ABDOMEN: Soft, nontender. No hepatosplenomegaly, normal bowel sounds, no guarding or rigidity. EXTREMITIES: No clubbing, 2+ pedal edema, 1+ lower extremity edema bilaterally no cyanosis, 2+ pulses and upper and lower extremities. MUSCULOSKELETAL: Muscle strength and tone normal. SPINE: No scoliosis or deformity SKIN: No rashes CENTRAL NERVOUS SYSTEM: Alert and oriented -2. No focal deficits, tone is normal in all 4 extremities. PSYCHIATRIC: Alert and oriented -2. Appropriate affect. Intact judgment and insight. - Labs CBC & Chem 7: 05/30/19 05:05 05/30/19 05:05 Labs: Abnormal Lab Results - Last 24 Hours (Table) 05/29/19 05/30/19 05/30/19 Range/Units 12:16 05:05 05:05 RBC 2.90 L (4.30-5.90) m/uL Hgb 8.4 L (13.0-17.5) gm/dL Hct 26.1 L (39.0-53.0) % RDW 16.1 H (11.5-15.5) % Plt Count 105 L (150-450) k/uL Sodium 132 L (137-145) mmol/L Potassium 5.2 H (3.5-5.1) mmol/L Chloride 97 L (98-107) mmol/L Carbon Dioxide 21 L (22-30) mmol/L BUN 76 H (9-20) mg/dL Creatinine 3.35 H (0.66-1.25) mg/dL Glucose 110 H (74-99) mg/dL Calcium 6.7 L (8.4-10.2) mg/dL Ionized Calcium Heaven 4.0 L (4.5-5.3) mg/dL Microbiology - Last 24 Hours (Table) 05/25/19 05:56 Blood Culture - Preliminary Blood No Growth after 120 hours 05/27/19 04:46 Blood Culture - Preliminary Blood No Growth after 72 hours 05/26/19 05:53 Blood Culture Gram Stain - Final Blood Blood Culture - Final Coagulase Negative Staph Coagulase Negative Staph#2 Assessment and Plan Plan: Assessment: #1. Acute septic shock secondary to right lower lobe pneumonia, likely hea lthcare acquired pneumonia and gram-positive bacteremia secondary to MSSA. There is also evidence of urinary tract infection with urine cultures positive for Klebsiella pneumonia #2. 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 Acute on chronic hypoxemic respiratory failure related to the above #4. Lactic acidosis improving with IV hydration #5. Acute kidney injury likely related to ATN #6. Acute exacerbation of chronic congestive heart failure with systolic dysfunction with a known impaired left ventricular systolic function with an EF of 30-35% #7. Elevated troponins rule out non-ST elevated myocardial infarction #8. Recent admission for acute exacerbation of systolic CHF, acute kidney injury #9. History of COPD on chronic oxygen #10. Former smoker #11. History of bladder cancer, patient's TURBT in March 2019 had to be aborted related to hypotension. Follows with Dr. Calvert #12. History of coronary artery disease with previous bypass grafting #13. Hypertension #14. Previous myocardial infarction #15. Ischemic cardiomyopathy with the EF of 30-35% #16. Chronic anemia #17. History of benign prostatic hypertrophy #18. Persistent positive blood cultures with evidence of endocarditis #19. Severe medical debility related to multiple comorbidities, and critical care illness as described above #20. Generalized swelling, interstitial edema, hypoalbuminemia related to poor nutritional status Plan: Continue current medical treatment, antibiotics per ID service recommendation, continue aspiration precautions, provide supervision and assistance with meals, we'll proceed with the insertion of a Dobbhoff feeding tube to meet patient's nutritional goals, we will start him on a 25% albumin twice daily, followed by IV Lasix. We will repeat a chest x-ray tomorrow, did incentive spirometry, encouraged to deep breathe and cough, apply lower extremity compression stockings, GI and DVT prophylaxis. We'll obtain lower extremity Dopplers to rule out DVT. We'll continue to follow I performed a history & physical examination of the patient and discussed their management with my nurse practitioner, Taisha Saldaña. I reviewed the nurse practitioner's note and agree with the documented findings and plan of care. Lung sounds are positive for diminished with rales. The findings and the impression was discussed with the patient. I attest to the documentation by the nurse practitioner. Time with Patient: Less than 30
--- NOTE | 2019-05-30 10:52 | P.PN ---
Subjective Progress Note Date: 05/30/19 Principal diagnosis: Bacterial endocarditis of the mitral valve. 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 The patient is currently laying in bed in the intensive care unit. He is in no acute distress. The patient is alert and oriented [address] He states that the year is 2000. He denies any complaints of pain or shortness of breath. Oxygen saturations are 96% on room air. He remains hemodynamically stable and is currently on no inotropic or pressor support. The patient has generalized edema although his left lower extremity has +2 edema present. The patient underwent a transesophageal echocardiogram completed on 05/28/2019 which demonstrated a mobile 1 cm circumferential mass on the anterior leaflet of the mitral valve suggestive of vegetation. It also demonstrated a mass to the posterior leaflet of the mitral valve as well. The patient has had positive blood cultures growing staphylococcus aureus and is currently on nafcillin managed by infectious disease. Objective - Vital Signs Vital signs: Vital Signs Temp 97.3 F L 05/30/19 08:00 Pulse 89 05/30/19 08:00 Resp 24 05/30/19 08:00 BP 95/74 05/30/19 08:00 Pulse Ox 95 05/30/19 08:00 Intake & Output 05/29/19 05/30/19 05/30/19 18:59 06:59 18:59 Intake Total 1260 1020 Output Total 295 380 Balance 965 640 Weight 80.2 kg 80.2 kg Intake: IV 660 780 0.9 360 480 Nafcillin 2 gm In 300 300 Dextrose 5% in Water 100 ml @ 50 mls/hr IVPB Q4HR [facility] Rx#:[id number] Oral 600 240 Output: Urine 295 380 Other: Voiding Method Indwelling Catheter Urinal Urinal - Constitutional General appearance: Present: cooperative, no acute distress, obese - Respiratory Details: Lung sounds with scattered expiratory wheezes. Diminished to his bilateral bases. Respirations are symmetrical and nonlabored. Oxygen saturation is 96% on room air. - Cardiovascular Details: Regular rhythm and rate. S1 and S2 present, negative for S3, gallop or murmur. Bedside telemetry showing normal sinus rhythm heart rate 93. Generalized +1 edema, +2 edema to his left lower extremity. Sequential compression devices in place to his bilateral lower extremities. - Gastrointestinal Gastrointestinal Comment(s): Abdomen soft, nontender and nondistended. Active bowel sounds present in all 4 abdominal quadrants. No organomegaly appreciated. - Genitourinary Genitourinary Comment(s): Voiding clear tony urine. - Integumentary Integumentary Comment(s): Skin is warm and dry. No clubbing or cyanosis is present. No rash or abnormal pigmentation is present. - Neurologic Neurologic: Present: CNII-XII intact - Musculoskeletal Musculoskeletal: Present: generalized weakness, strength equal bilaterally - Psychiatric Psychiatric Comment(s): Alert and oriented [address] Psychiatric: Present: appropriate affect, intact judgment & insight - Allied health notes Allied health notes reviewed: nursing - Labs CBC & Chem 7: 05/30/19 05:05 05/30/19 05:05 Labs: Abnormal Lab Results - Last 24 Hours (Table) 05/29/19 05/30/19 05/30/19 Range/Units 12:16 05:05 05:05 RBC 2.90 L (4.30-5.90) m/uL Hgb 8.4 L (13.0-17.5) gm/dL Hct 26.1 L (39.0-53.0) % RDW 16.1 H (11.5-15.5) % Plt Count 105 L (150-450) k/uL Sodium 132 L (137-145) mmol/L Potassium 5.2 H (3.5-5.1) mmol/L Chloride 97 L (98-107) mmol/L Carbon Dioxide 21 L (22-30) mmol/L BUN 76 H (9-20) mg/dL Creatinine 3.35 H (0.66-1.25) mg/dL Glucose 110 H (74-99) mg/dL Calcium 6.7 L (8.4-10.2) mg/dL Ionized Calcium Heaven 4.0 L (4.5-5.3) mg/dL Microbiology - Last 24 Hours (Table) 05/25/19 05:56 Blood Culture - Preliminary Blood No Growth after 120 hours 05/27/19 04:46 Blood Culture - Preliminary Blood No Growth after 72 hours 05/26/19 05:53 Blood Culture Gram Stain - Final Blood Blood Culture - Final Coagulase Negative Staph Coagulase Negative Staph#2 Assessment and Plan Assessment: 1. Bacterial endocarditis. 2. Septic shock with pneumonia this admission. Lactic acidosis on admission. 3. History of coronary artery disease with previous myocardial infarction status post coronary artery bypass graft surgery 4. Acute on chronic systolic heart failure with EF 30-35% 5. Acute on chronic renal failure 6. COPD with home oxygen 4 L/m 7. Obstructive sleep apnea with home CPAP 8. Hypothyroidism 9. History of bladder cancer 10. Prostate disorder 11. Previous Heller myotomy 12. Previous tobacco dependence Plan: 1. Recommend completing 6 weeks of IV antibiotics to attempt to clear bacteremia. Blood cultures from 05/27/2019 preliminarily negative 48 hours. 2. Encourage incentive spirometry use every hour while awake. 3. Increase activity as tolerated. 4. The patient would be extremely high risk for repeat open heart surgery to repair/replacement mitral valve. Will revisit the case for surgery once patient has completed IV antibiotic course. 5. Medical management per primary care and multiple consultants 6. Venous duplex study of his lower extremities rule out DVT, ordered per critical care medicine. 7. Continue GI and DVT prophylaxis. 8. More recommendations to follow based on patient's clinical course. Time with Patient: Greater than 30
--- NOTE | 2019-05-30 10:58 | XR ---
EXAMINATION TYPE: XR chest 1V portable DATE OF EXAM: 05/30/2019 Comparison: 06/28/2019 Clinical History: 79-year-old male Dobbhoff placement Findings: Dobbhoff tube is not visualized. It may be looped in the neck. Otherwise, stable borderline cardiomegaly with interstitial and vascular densities and right greater than left bibasilar opacities. Aeration minimally improved at the right lower lung. Median sternotomy wires and post-CABG clips. Impression: 1. Dobbhoff tube not visualized. It may be looped in the neck. 2. Otherwise, overall stable exam, suspect pulmonary vascular congestion with right greater than left pleural effusions and adjacent atelectasis and/or consolidation. Aeration may be minimally improved at the right lower lung.
[2019-05-30] MEDS: ALBUMIN HUMAN 25% 50 ML in EMPTY BAG 1 BAG IVPB SCH ×2 (11:47→21:02)
[2019-05-30] MEDS: HEPARIN SODIUM,PORCINE 5,000 UNIT/ML 1 ML VIAL SQ SCH ×3 (11:49→23:37)
[2019-05-30] MEDS ORDERED: IV FLUID CONTINUATION 1,000 ML IV ONE (13:13)
--- NOTE | 2019-05-30 14:01 | US ---
EXAMINATION TYPE: US venous doppler duplex LE BI DATE OF EXAM: 05/30/2019 11:12 AM COMPARISON: NONE CLINICAL HISTORY: 79-year-old male swelling of both legs. Bilateral leg swelling, exam done portable in ICU. SIDE PERFORMED: Bilateral TECHNIQUE: The lower extremity deep venous system is examined utilizing real time linear array sonog mckinley with graded compression, doppler sonography and color-flow sonography. FINDINGS: VESSELS IMAGED: External Iliac Vein (EIV) Common Femoral Vein Deep Femoral Vein Greater Saphenous Vein * Femoral Vein Popliteal Vein Small Saphenous Vein * Proximal Calf Veins (* superficial vessels) CRYPTOGRAPHIC VULNERABILITY ANALYST NOTES: Difficult and limited study due to bilateral leg swelling and edema Right Leg: Appears negative for DVT Left Leg: Appears negative for DVT IMPRESSION: Technically difficult exam due to generalized soft tissue swelling. No visualized DVT within the bila teral lower extremities imaged from the groin to the upper calves.
--- NOTE | 2019-05-30 14:10 | XR ---
EXAMINATION TYPE: XR chest 1V confirm line plcmt DATE OF EXAM: 05/30/2019 COMPARISON: 05/30/2019 HISTORY: 79-year-old male PICC line placement with shortness of breath TECHNIQUE: Single frontal view of the chest is obtained. FINDINGS: Increasing interstitial densities as compared to prior exam. Bibasilar opacities persist. Left PICC t ip is at the mid to lower SVC level. IMPRESSION: 1. Left PICC tip at the mid to lower SVC level. 2. Slight worsening in interstitial edema with continued right greater than left effusions with adjac ent atelectasis and or consolidation.
--- NOTE | 2019-05-30 14:16 | IR ---
EXAMINATION TYPE: IR cvc insert >=5 years DATE OF EXAM: 05/30/2019 COMPARISON: NONE HISTORY: Infection, endocarditis FINDINGS: Maximal barrier technique was utilized. The skin overlying the left basilic vein was local ized with ultrasound and noted to be compressible and patent by ultrasound. An ultrasound image was obtained and submitted on patient's chart. Sterile technique utilized with the ultrasound machine. Th e skin overlying was prepped and draped and Lidocaine used for local anesthesia. A skin joaquim was mad e with a scalpel. Access was gained to the vein under direct ultrasound guidance with a 21-gauge nee dle and a 0.018 inch wire was advanced. Access site was dilated with a peel-away sheath and the cath eter tailored to length. Catheter advanced centrally and a post procedure chest x-ray verified place ment with the tip in the superior vena cava. Catheter was fixed to the skin and a sterile dressing p laced. Hemostasis achieved and the catheter was aspirated and flushed with sterile saline. The madi ent remained in stable condition. IMPRESSION: STATUS POST ULTRASOUND GUIDED PICC LINE PLACEMENT, READY FOR USE. THIS PROCEDURE WAS PER FORMED BY THE UNDERSIGNED.
--- NOTE | 2019-05-30 15:49 | XR ---
Abdomen HISTORY: Dobbhoff tube placement Frontal view of the abdomen submitted. Dobbhoff tube is coiled within the left upper quadrant. Patient is post median sternotomy. Patchy bas ilar increased density persists. There are overlying cardiac leads. Gas-filled loops of bowel are not ed. IMPRESSION: Dobbhoff tube as described
[2019-05-30] MEDS: SODIUM CHLORIDE 0.9% 1,000 ML IV SCH (17:09)
--- NOTE | 2019-05-30 18:35 | PN ---
PROGRESS NOTE Patient is seen for followup for acute kidney injury. His creatinine has gone up to 3.35 today. Patient's urine output has been about 300 mL for the last 8 hours. Over 24 hours he has had about 1.4 L. Patient is scheduled to get albumin followed by Damaso today. He is currently having Dopplers of his lower extremities. There is no evidence of DVT noted so far. Patient is also maintained on Cortef, as his blood pressure remains marginal. On physical examination this morning, blood pressure was 112/57, heart rate 80 per minute. Patient is afebrile. EXAMINATION OF THE HEART: S1 and S2. EXAMINATION OF LUNGS: Bilateral breath sounds are heard. Decreased breath sounds at bases. ABDOMEN: Soft, non-tender. Examination of lower extremities shows edema 1+ bilaterally. Labs show sodium 132, potassium 4.6, BUN of 76, serum creatinine 3.35. Magnesium is 2.2. Hemoglobin 8.4 g/dL. ASSESSMENT: 1. Acute kidney injury, acute tubular necrosis. Renal function is worse from yesterday. Currently patient is being diuresed. His overall general condition has deteriorated. Chest x-ray continues to show interstitial edema and vascular congestion. Continue with the Lasix for now. Repeat labs in a.m. There are no nephrotoxic agents on board. Urine eosinophils were zero. Patient is maintained on nafcillin. 2. Metabolic acidosis; maintained on sodium bicarb. 3. Hypocalcemia. Rule out nutritional vitamin D deficiency. Status post supplementation. 4. Coagulase-negative Staphylococcus bacteremia, initially with Staphylococcus aureus bacteremia. There is consideration for possible mitral valve endocarditis. PLAN: Continue with the 2 doses of Lasix today. Repeat labs in a.m. Overall prognosis is guarded. MMODL / IJN: [id number] /
[2019-05-30] MEDS: SERTRALINE 50 MG TAB PO SCH (21:02)
[2019-05-30] MEDS: HYDROCORTISONE 10 MG TAB PO SCH (21:02)
[2019-05-30] MEDS: ATORVASTATIN 20 MG TAB PO SCH (21:02)
[2019-05-30] MEDS: MONTELUKAST 10 MG TAB PO SCH (21:02)
--- NOTE | 2019-05-30 22:17 | CONS ---
CONSULTATION DATE OF DICTATION: 05/30/2019. REASON FOR CONSULTATION: Decreased appetite, for Dobbhoff tube placement. HISTORY OF PRESENT ILLNESS: The patient is an 79-year-old pleasant white male who was admitted to the hospital with infective endocarditis and presently on broad-spectrum antibiotics. Since being in the hospital for the last 5 days, he has decreased appetite, poor oral intake, and hence we are requested to see him in consultation for a Dobbhoff tube placement for nutritional purposes. The patient denies any dysphagia. He reports no odynophagia. He denies any abdominal pain. No nausea or vomiting. He states that he has a significantly decreased appetite and does not want to eat anything. PAST MEDICAL HISTORY: His past medical history is significant for: 1. Hypertension. 2. Hyperlipidemia. 3. History of coronary artery disease. 4. Congestive heart failure. 5. Gastroesophageal reflux disease. 6. Degenerative joint disease. 7. Thyroid disorder. PAST SURGICAL HISTORY: 1. Bilateral cataract surgery. 2. Skin cancer. 3. CABG in the past. 4. History of PEG tube placement in the past. 5. Heller myotomy. FAMILY HISTORY: Mother had some breast cancer. Sister had colon cancer. Father did when the patient was 3 years old. REVIEW OF SYSTEMS: CARDIOPULMONARY: No chest pain or shortness of breath. GENITOURINARY: No dysuria or hematuria. MUSCULOSKELETAL: Unremarkable. SKIN: Unremarkable. ENDOCRINE: Unremarkable. PSYCHIATRIC: Unremarkable. NEUROLOGY: Unremarkable other than mild dementia. ENT/VISION: Unremarkable. CONSTITUTIONAL: No recent weight loss. No fever, chills, night sweats. CURRENT MEDICATIONS WHILE IN THE HOSPITAL: 1. Tylenol p.r.n. 2. Albuterol. 3. Aspirin. 4. Lipitor. 5. Questran. 6. Heparin. 7. Cortef. 8. Synthroid. 9. Singulair. 10.Ditropan. 11.Protonix. 12.Zoloft. 13.Tramadol. 14.Nafcillin. PHYSICAL EXAMINATION: He appears comfortable. No apparent distress. VITAL SIGNS: Stable. Blood pressure is 112/57, pulse rate 92, temperature 98.2. HEENT examination unremarkable. Conjunctivae pink. Sclerae anicteric. Oral cavity no lesions. NECK: No JVD or lymph node enlargement. CHEST: Clear to auscultation. HEART: Regular rate and rhythm. ABDOMEN: Soft. It was non-tender, non-distended. Bowel sounds are positive. No organomegaly. EXTREMITIES: No pedal edema. SKIN: No rashes. NEUROLOGIC: Alert and oriented x3. No focal deficits. LABS: Labs done today show WBC 7.6, hemoglobin 8.4, platelets 105. Basic metabolic panel is within normal limits. BUN is 76, creatinine 3.35. IMPRESSION: 1. Infective endocarditis, presently on IV nafcillin. Blood cultures grew methicillin- susceptible Staphylococcus aureus. Dr. Brooks is following the patient closely. 2. Decreased oral intake. Attempted Dobbhoff tube placement by mgmt specialist but was not successful. RECOMMENDATIONS: I discussed with the patient importance of oral nutrition at this time. After getting consent from him, I placed the Dobbhoff from the right external nostril. It was gently advanced into the throat and further advanced without any resistance. Following the placement, the stylet was removed and abdominal x-ray was obtained. The tip of the Dobbhoff tube was located in the body of the stomach. At this time we will start Ensure through the Dobbhoff tube and see how he tolerates it. For now we will sign off. Please call us if needed. Thank you for this consultation. MMODL / IJN: [id number] /
--- NOTE | 2019-05-30 22:18 | P.PN ---
Subjective Progress Note Date: 05/29/19 Principal diagnosis: Septic shock 79-year-old pleasant gentleman came in with the shortness of breath and is being treated for sepsis possible source being pneumonia. Patient to sepsis improved significantly patient is off Levophed patient does have significant pulmonary edema from IV fluids and patient does have congestive heart failure ejection fraction at that to 35% received IV Lasix and this can you IV fluids will closely monitor his blood pressure patient normally has low blood pressure presently on Zosyn at this time. Being followed by multiple consultants andrew galicia infectious disease bank analyst. 05/23/2019 Patient wishes daily stable patient is receiving IV Lasix because of his pulmonary edema. Patient does have bacteremia with the staph aureus probably th e source of infection rather pneumonia or urinary tract infection patient will be switched to nafcillin discussed with infectious disease. Patient the has blood cultures that are positive second set of blood cultures are positive because of which echocardiogram will be obtained to rule out any endocarditis. Patient had low-grade fever yesterday we'll repeat blood cultures again today. Creatinine improved from 1.48 to 1.16. 05/24/2019 Patient's fevers resolved but blood cell count is improving. But patient remains bacteremic. Echocardiogram did not show any valvular lesions 9 DT astemizole which was replaced I had a lengthy discussion with the patient regarding her overall goals of care patient is agreeable for DO NOT RESUSCITATE but unsure whether he can make his own duration I'll discuss with the family regarding this. Patient prognosis is extremely poor because of possible endo carditis, bladder cancer, systolic heart failure patient is more appropriate for hospice and comfort care same thing was discussed the patient will also discuss with the family. Patient is quite a bit fatigued and he believes he is not in a 10 out of the hospital. 05/25/2019 patient is not doing well patient the blood cultures were positive from will repeat blood cultures tomorrow creatinine started going up patient blood pressure is still unstable patient is back on Levophed is still getting IV fluids patient does have pulmonary edema prognosis is extremely poor, will discuss with the family regarding hospice. Was unable to reach family yesterday 05/26/2019 Patient looks bit better today off levothyroid, patient today appears to able to my dictation because of which I had lengthy discussion with him regarding DO NOT RESUSCITATE patient wants to be full code because of which I do not believe it's reasonable to discuss regarding comfort care and hospice at this time. Although I did discuss with his regarding comfort care and hospice yesterday and patient's wanted to talk to me today in person as patient now wants everything to be done at believe that discussion is inappropriate and the patient will be continued on present treatment. Pulmonology believes patient may have an empyema. Patient most probably has an otitis and will need a JOSE cardiology was consulted for that. Repeat blood cultures will be obtained for today and tomorrow patient can use to have persistent bacteremia his prognosis although remains extremely poor. 05/27/2019 Patient is very lethargic but arousable. Currently on Levophed. Otherwise patient is being continued on antibiotics in the form of nafcillin for MSSA bacteremia. Repeat cultures have been negative so far. No fever no chills. Cardiology is following for possible JOSE to rule out vegetations. Chest x-ray showed persistent right greater than left bibasilar infiltrates/atelectasis and bilateral pleural effusions right greater than left. Patient otherwise saturating well on 4 L nausea cannula oxygen. WBC count improved to 9.4 from 12.7. BUN 74 and creatinine 2.65. Patient does have [place] catheter and fecal m anagement system. C. diff negative. Pt. still wants to be full code. 05/28/2019 Patient is lethargic but awake alert oriented 3 and is able to communicate. Patient had a JOSE done today showed circumferential mobile mass on the left anterior leaflet on the atrial side suggestive of vegetation. There is a sessile mass in the posterior leaflet of the mitral valve is again suggestive of vegetation. I aortic valve vegetation cannot be completely excluded. Patient is being continued on nafcillin. Cultures for the last 24-36 hours have been negative. Chest x-ray showed stable small to medium right effusion with adjacent atelectasis and/or consolidation. Patient was up Levophed this morning were was started back again later today. No fever no chills. WBC 6.9, sodium 131 and creatinine 2.88 05/29/2018 Patient is awake, alert and oriented 3.. Currently off you forwarded. Blood pressure is fairly stable. Patient is being continued on antibiotics in the form of nafcillin for MSSA bacteremia and infected endocarditis. CT surgery course medical management at this time. Patient is high risk for cardiac surgery. Patient is able to sit in the chair comfortably today. Otherwise patient is only completing 25% of his meal. Considering Dobbhoff tube placement. Plan patient has been afebrile. Blood cultures from 05/26 showed coagulase-negative staph. Patient has been afebrile. Creatinine level II.83 today. Constitutional: Looks less fatigued and looks bit better Cardio vascular: denied any chest pain, palpitations Gastrointestinal denied any nausea vomiting Pulmonary: Does have shortness of breath Neurologic denied any new focal deficits All inpatient medications were reviewed and appropriate changes in these medications as dictated in the interval history and assessment and plan. Objective - Vital Signs Vital signs: Vital Signs Temp 97.7 F 05/29/19 12:00 Pulse 82 05/29/19 12:00 Resp 18 05/29/19 12:00 BP 107/69 05/29/19 12:00 Pulse Ox 95 05/29/19 12:00 Intake & Output 05/28/19 05/29/19 05/29/19 18:59 06:59 18:59 Intake Total 1450 620 620 Output Total 372 507 145 Balance 1078 113 475 Weight 80.2 kg 80.2 kg Intake: IV 850 620 260 0.9 550 520 160 Nafcillin 2 gm In 300 100 100 Dextrose 5% in Water 100 ml @ 50 mls/hr IVPB Q4HR [facility] Rx#:[id number] Intake, IV Titration 0 Amount Norepinephrine 4 mg In 0 Sodium Chloride 0.9% 250 ml @ 0.05 MCG/KG/MIN 13. 826 mls/hr IV .[id number] [facility] Rx#:[id number] Oral 600 360 Output: Urine 372 507 145 Other: Voiding Method Indwelling Catheter Indwelling Catheter Indwelling Catheter - Exam GENERAL: The patient is alert and oriented x3, much less fatigued today looks bit better. Well developed, well nourished. HEENT: Pupils are round and equally reacting to light. EOMI. No scleral icterus. No conjunctival pallor. Normocephalic, atraumatic. No pharyngeal erythema. No thyromegaly. CARDIOVASCULAR: S1 and S2 present. No murmurs, rubs, or gallops. Does have elevated JVD PULMONARY: Bibasilar diminished air entry. Otherwise Clear to auscultation today no wheezing ABDOMEN: Soft, nontender, nondistended, normoactive bowel sounds. No palpable organomegaly. MUSCULOSKELETAL: No joint swelling or deformity. EXTREMITIES: No cyanosis, clubbing, or pedal edema. NEUROLOGICAL: Gross neurological examination did not reveal any focal deficits. SKIN: No rashes. - Labs CBC & Chem 7: 05/30/19 05:05 05/30/19 05:05 Labs: Abnormal Lab Results - Last 24 Hours (Table) 05/29/19 05/29/19 05/29/19 Range/Units 04:31 04:31 12:16 RBC 2.66 L (4.30-5.90) m/uL Hgb 7.7 L (13.0-17.5) gm/dL Hct 24.0 L (39.0-53.0) % RDW 15.9 H (11.5-15.5) % Plt Count 76 L (150-450) k/uL Lymphocytes # 0.9 L (1.0-4.8) k/uL ESR 29 H (0-15) mm/hr Potassium 3.4 L 5.2 H (3.5-5.1) mmol/L Chloride 89 L (98-107) mmol/L Carbon Dioxide 16 L (22-30) mmol/L BUN 69 H (9-20) mg/dL Creatinine 2.83 H (0.66-1.25) mg/dL Glucose 102 H (74-99) mg/dL Calcium 4.2 L* (8.4-10.2) mg/dL Total Bilirubin 4.4 H (0.2-1.3) mg/dL C-Reactive Protein 172.2 H (<10.0) mg/L Total Protein 5.1 L (6.3-8.2) g/dL Albumin 2.0 L (3.5-5.0) g/dL Microbiology - Last 24 Hours (Table) 05/25/19 05:56 Blood Culture - Preliminary Blood No Growth after 96 hours 05/26/19 05:53 Blood Culture Gram Stain - Final Blood Blood Culture - Final Coagulase Negative Staph Coagulase Negative Staph#2 05/27/19 04:46 Blood Culture - Preliminary Blood No Growth after 48 hours Assessment and Plan Assessment: -Sepsis, septic shock: shock improved. due to to mitral valve vegetation/ infective endocarditis. Status post JOSE on 05/28/2019. Patient is presently on nafcillin, pt. had persistent bacteremia. Patient was on norepinephrine and receiving IV fluids per does have pulmonary edema. Blood cultures have been negative since 05/27/2019 -Acute hypoxic respiratory failure secondary to congestive heart failure exacerbation. -Lactic acidosis secondary to sepsis resolved now. patient is presently receiving Lasix -Acute renal failure secondary to prerenal azotemia as well as acute tubular necrosis creatinine improved started going up again because of hypotension, sepsis and congestive heart failure -Hypervolemic hyponatremia secondary to congestive heart failure improving with Lasix. -Congestive heart failure chronic systolic dysfunction ejection fraction of 30- 35% with acute exacerbation, patient has ischemic cardiomyopathy -COPD chronic hypercapnic respiratory failure on oxygen at home. -Possibility of bladder cancer bladder cancer, following follows up with urology and a recent TURP which was incomplete and aborted secondary to hypotension -Coronary artery disease with previous CABG patient has recent cardiac catheterization which did not show any atherosclerotic occlusive disease that need intervention. -Hypertension -Hypothyroidism: Continue with levothyroxine -Benign prostatic hypertrophiy. -DVT prophylaxis with subcutaneous heparin twice a day Time with Patient: Greater than 30
--- NOTE | 2019-05-30 22:34 | P.PN ---
Subjective Progress Note Date: 05/30/19 Principal diagnosis: Septic shock 79-year-old pleasant gentleman came in with the shortness of breath and is being treated for sepsis possible source being pneumonia. Patient to sepsis improved significantly patient is off Levophed patient does have significant pulmonary edema from IV fluids and patient does have congestive heart failure ejection fraction at that to 35% received IV Lasix and this can you IV fluids will closely monitor his blood pressure patient normally has low blood pressure presently on Zosyn at this time. Being followed by multiple consultants andrew galicia infectious disease entry level finance. 05/23/2019 Patient wishes daily stable patient is receiving IV Lasix because of his pulmonary edema. Patient does have bacteremia with the staph aureus probably th e source of infection rather pneumonia or urinary tract infection patient will be switched to nafcillin discussed with infectious disease. Patient the has blood cultures that are positive second set of blood cultures are positive because of which echocardiogram will be obtained to rule out any endocarditis. Patient had low-grade fever yesterday we'll repeat blood cultures again today. Creatinine improved from 1.48 to 1.16. 05/24/2019 Patient's fevers resolved but blood cell count is improving. But patient remains bacteremic. Echocardiogram did not show any valvular lesions 9 DT astemizole which was replaced I had a lengthy discussion with the patient regarding her overall goals of care patient is agreeable for DO NOT RESUSCITATE but unsure whether he can make his own duration I'll discuss with the family regarding this. Patient prognosis is extremely poor because of possible endo carditis, bladder cancer, systolic heart failure patient is more appropriate for hospice and comfort care same thing was discussed the patient will also discuss with the family. Patient is quite a bit fatigued and he believes he is not in a 10 out of the hospital. 05/25/2019 patient is not doing well patient the blood cultures were positive from will repeat blood cultures tomorrow creatinine started going up patient blood pressure is still unstable patient is back on Levophed is still getting IV fluids patient does have pulmonary edema prognosis is extremely poor, will discuss with the family regarding hospice. Was unable to reach family yesterday 05/26/2019 Patient looks bit better today off levothyroid, patient today appears to able to my dictation because of which I had lengthy discussion with him regarding DO NOT RESUSCITATE patient wants to be full code because of which I do not believe it's reasonable to discuss regarding comfort care and hospice at this time. Although I did discuss with his regarding comfort care and hospice yesterday and patient's wanted to talk to me today in person as patient now wants everything to be done at believe that discussion is inappropriate and the patient will be continued on present treatment. Pulmonology believes patient may have an empyema. Patient most probably has an otitis and will need a JOSE cardiology was consulted for that. Repeat blood cultures will be obtained for today and tomorrow patient can use to have persistent bacteremia his prognosis although remains extremely poor. 05/27/2019 Patient is very lethargic but arousable. Currently on Levophed. Otherwise patient is being continued on antibiotics in the form of nafcillin for MSSA bacteremia. Repeat cultures have been negative so far. No fever no chills. Cardiology is following for possible JOSE to rule out vegetations. Chest x-ray showed persistent right greater than left bibasilar infiltrates/atelectasis and bilateral pleural effusions right greater than left. Patient otherwise saturating well on 4 L nausea cannula oxygen. WBC count improved to 9.4 from 12.7. BUN 74 and creatinine 2.65. Patient does have [place] catheter and fecal m anagement system. C. diff negative. Pt. still wants to be full code. 05/28/2019 Patient is lethargic but awake alert oriented 3 and is able to communicate. Patient had a JOSE done today showed circumferential mobile mass on the left anterior leaflet on the atrial side suggestive of vegetation. There is a sessile mass in the posterior leaflet of the mitral valve is again suggestive of vegetation. I aortic valve vegetation cannot be completely excluded. Patient is being continued on nafcillin. Cultures for the last 24-36 hours have been negative. Chest x-ray showed stable small to medium right effusion with adjacent atelectasis and/or consolidation. Patient was up Levophed this morning were was started back again later today. No fever no chills. WBC 6.9, sodium 131 and creatinine 2.88 05/29/2018 Patient is awake, alert and oriented 3.. Currently off you forwarded. Blood pressure is fairly stable. Patient is being continued on antibiotics in the form of nafcillin for MSSA bacteremia and infected endocarditis. CT surgery course medical management at this time. Patient is high risk for cardiac surgery. Patient is able to sit in the chair comfortably today. Otherwise patient is only completing 25% of his meal. Considering Dobbhoff tube placement. Plan patient has been afebrile. Blood cultures from 05/26 showed coagulase-negative staph. Patient has been afebrile. Creatinine level II.83 today. 05/30/2019 Patient remained in the MICU. Blood pressure is fairly stable with SBP around 100. Currently on Midodrin. Levophed is on hold currently. Patient is comfortable and lying in the bed without any distress. No fever no chills. Otherwise patient does not have much appetite. Currently being continued on nafcillin. PICC line was placed today. Chest x-ray showed slight worsening interstitial edema and IV Lasix 2 doses was ordered. Renal function slightly worsened with creatinine level III.35. Repeat cultures have been negative so far. Patient is being placed on Dobbhoff tube due to poor nutrition. Constitutional: Looks less fatigued and looks bit better Cardio vascular: denied any chest pain, palpitations Gastrointestinal denied any nausea vomiting Pulmonary: Does have shortness of breath Neurologic denied any new focal deficits All inpatient medications were reviewed and appropriate changes in these medications as dictated in the interval history and assessment and plan. Objective - Vital Signs Vital signs: Vital Signs Temp 98.4 F 05/30/19 20:00 Pulse 102 H 05/30/19 20:00 Resp 22 05/30/19 20:00 BP 104/62 05/30/19 20:00 Pulse Ox 93 L 05/30/19 20:00 Intake & Output 05/30/19 05/30/19 05/31/19 06:59 18:59 06:59 Intake Total 1020 40 140 Output Total 380 50 Balance 640 40 90 Weight 80.2 kg Intake: IV 780 40 140 0.9 480 40 40 Nafcillin 2 gm In 300 100 Dextrose 5% in Water 100 ml @ 50 mls/hr IVPB Q4HR [facility] Rx#:[id number] Oral 240 Output: Urine 380 50 Other: Voiding Method Urinal Urinal Urinal # Voids 100 - Exam GENERAL: The patient is alert and oriented x3, much less fatigued today looks bit better. Well developed, well nourished. HEENT: Pupils are round and equally reacting to light. EOMI. No scleral icterus. No conjunctival pallor. Normocephalic, atraumatic. No pharyngeal erythema. No thyromegaly. CARDIOVASCULAR: S1 and S2 present. No murmurs, rubs, or gallops. Does have elevated JVD PULMONARY: Bibasilar diminished air entry. Otherwise Clear to auscultation today no wheezing ABDOMEN: Soft, nontender, nondistended, normoactive bowel sounds. No palpable organomegaly. MUSCULOSKELETAL: No joint swelling or deformity. EXTREMITIES: No cyanosis, clubbing, or pedal edema. NEUROLOGICAL: Gross neurological examination did not reveal any focal deficits. SKIN: No rashes. - Labs CBC & Chem 7: 05/30/19 05:05 05/30/19 05:05 Labs: Abnormal Lab Results - Last 24 Hours (Table) 05/30/19 05/30/19 Range/Units 05:05 05:05 RBC 2.90 L (4.30-5.90) m/uL Hgb 8.4 L (13.0-17.5) gm/dL Hct 26.1 L (39.0-53.0) % RDW 16.1 H (11.5-15.5) % Plt Count 105 L (150-450) k/uL Sodium 132 L (137-145) mmol/L Chloride 97 L (98-107) mmol/L Carbon Dioxide 21 L (22-30) mmol/L BUN 76 H (9-20) mg/dL Creatinine 3.35 H (0.66-1.25) mg/dL Glucose 110 H (74-99) mg/dL Calcium 6.7 L (8.4-10.2) mg/dL Ionized Calcium [place] 4.0 L (4.5-5.3) mg/dL Microbiology - Last 24 Hours (Table) 05/25/19 05:56 Blood Culture - Preliminary Blood No Growth after 120 hours 05/27/19 04:46 Blood Culture - Preliminary Blood No Growth after 72 hours Assessment and Plan Assessment: -Sepsis, septic shock: shock improved. due to to mitral valve vegetation/ infective endocarditis. Status post JOSE on 05/28/2019. Patient is presently on nafcillin, pt. had persistent bacteremia. Patient was on norepinephrine and r eceiving IV fluids per does have pulmonary edema. Blood cultures have been negative since 05/27/2019 -Acute hypoxic respiratory failure secondary to congestive heart failure exacerbation. -Lactic acidosis secondary to sepsis resolved now. patient is presently receiving Lasix -Acute renal failure secondary to prerenal azotemia as well as acute tubular necrosis creatinine improved started going up again because of hypotension, sepsis and congestive heart failure -Hypervolemic hyponatremia secondary to congestive heart failure improving with Lasix. -Congestive heart failure chronic systolic dysfunction ejection fraction of 30- 35% with acute exacerbation, patient has ischemic cardiomyopathy -COPD chronic hypercapnic respiratory failure on oxygen at home. -Possibility of bladder cancer bladder cancer, following follows up with urology and a recent TURP which was incomplete and aborted secondary to hypotension -Coronary artery disease with previous CABG patient has recent cardiac catheterization which did not show any atherosclerotic occlusive disease that need intervention. -Hypertension -Hypothyroidism: Continue with levothyroxine -Benign prostatic hypertrophiy. -DVT prophylaxis with subcutaneous heparin twice a day Time with Patient: Greater than 30
--- NOTE | 2019-05-30 23:14 | PN ---
PROGRESS NOTE DATE OF SERVICE: 05/30/2019. REASON FOR FOLLOWUP: MSSA bacteremia secondary to mitral valve endocarditis. INTERVAL HISTORY: The patient is currently afebrile. The patient has been breathing comfortably, pleasantly confused though. No nausea, vomiting. No abdominal pain. Still has a fecal management system for the diarrhea but overall output has decreased per the RN. PHYSICAL EXAMINATION: Blood pressure 104/62 with a pulse of 102, temperature 98.4. He is 93% on room air. General description is an elderly male lying in bed in no distress. Respiratory system: Unlabored breathing. Decreased breath sounds in the bases. No wheeze. Heart S1, S2. Regular rate and rhythm. ABDOMEN: Soft, nontender. LABS: The patient did have worsening of his kidney function with a hematocrit of 3.38. Blood culture repeat has been negative. 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 Follow up blood culture has been negative. Patient is currently maintained on Naficillin to continue while monitoring his clinical course closely. His current PICC line today and continue supportive care. MMODL / IJN: [id number] /
[2019-05-31] MEDS: NAFCILLIN 2 GM in DEXTROSE 5% IN WATER 100 ML IVPB SCH ×12 (05:12→23:47)
[2019-05-31 05:41] LABS: Anisocytosis Slight; HCT 24.9 % (39.0-53.0); HGB 8.2 gm/dL (13.0-17.5); MCH 29.1 pg (25.0-35.0); MCHC 32.9 g/dL (31.0-37.0); MCV 88.5 fL (80.0-100.0); Mean Platelet Volume 8.8; Platelet Count 115 k/uL (150-450); RBC 2.81 m/uL (4.30-5.90); RDW 16.5 % (11.5-15.5); WBC 6.9 k/uL (3.8-10.6)
[2019-05-31 05:56] LABS: Calcium 6.9 mg/dL (8.4-10.2); Potassium 4.3 mmol/L (3.5-5.1)
[2019-05-31] MEDS: PANTOPRAZOLE 40 MG TABLET PO SCH ×2 (06:50→06:51)
[2019-05-31] MEDS: MIDODRINE 5 MG TAB PO SCH ×3 (06:50→15:22)
[2019-05-31] MEDS: LEVOTHYROXINE 112 MCG TAB PO SCH (06:51)
[2019-05-31] MEDS: SYMBICORT 160-4.5 MCG INHALER INHALATION SCH ×2 (07:22→19:29)
[2019-05-31] MEDS: IPRATROPIUM-ALBUTEROL 3 ML NEB INHALATION SCH ×3 (07:22→19:29)
[2019-05-31] MEDS: ASPIRIN 81 MG PO SCH (07:48)
[2019-05-31] MEDS: SODIUM BICARBONATE TAB 650 MG TAB PO SCH ×2 (07:48→20:28)
[2019-05-31] MEDS: NYSTATIN 100,000 UNIT/ML SUSP 500,000 UNIT/5 ML CUP PO SCH ×4 (07:48→20:28)
[2019-05-31] MEDS: HYDROCORTISONE 20 MG TAB PO SCH (07:48)
[2019-05-31] MEDS: OXYBUTYNIN XL 5 MG TAB.ER.24 PO SCH (07:48)
[2019-05-31] MEDS: HYDROPHILIC CREAM 180 GM TUBE TOPICAL SCH ×2 (07:49→20:35)
[2019-05-31] MEDS: HEPARIN SODIUM,PORCINE 5,000 UNIT/ML 1 ML VIAL SQ SCH ×3 (07:49→23:47)
[2019-05-31] MEDS: CHOLESTYRAMINE (WITH SUGAR) 4 GM PACKET PO SCH ×2 (07:49→18:09)
--- NOTE | 2019-05-31 09:25 | P.PN ---
Subjective Progress Note Date: 05/31/19 Principal diagnosis: Acute septic shock secondary to right lower lobe pneumonia, this is likely healthcare acquired pneumonia and gram-positive bacteremia. MSSA. This is a 79-year-old white male patient of Dr. Wallace, with extensive medical history, was recently hospitalized for acute exacerbation of systolic congestive heart failure with an EF of 30-35%, acute hypoxic failure related to CHF, acute on chronic renal failure. Following his discharge on 05/16/2019 patient went to [facility] for rehab. On 05/20/2019 patient was brought into the hospital for evaluation of worsening shortness of breath, fever chills, increased sputum production. Denied any nausea or vomiting, patient also complained of penile pain, and dysuria. Patient does have a history of COPD on home oxygen at 4 L. Other medical history includes CAD with history of bypass grafting, bladder c ancer, patient follows with Dr. Calvert from urology, hyperlipidemia, previous myocardial infarction, osteoarthritis, sleep apnea on CPAP therapy, prostate disorder, hypothyroidism, chronic back pain, and previous history of smoking. Chest x-ray was completed showing small bilateral pleural effusions, bibasilar atelectasis and diffuse interstitial and hazy opacities with the possibility of interstitial pneumonia, and fluid overload. Lab work was positive for leukocytosis, white blood cell count is 31.3, hemoglobin is 7.4, patient had 23% bandemia, correlation profile was within normal limits, serum sodium was 133, potassium 3.4, chloride was 92, CO2 is 31, BUN was 61, creatinine is 2.42. La ctic acid was 4.8 patient was given 2 L of IV fluids, this morning his lactic acid is 2.8, troponins were positive at 0.173, and 0.121. ProBNP was [address], urinalysis showed large amount of blood, 1+ protein, large amount of leuk trase, rare white blood cell and rare bacteria, doubt underlying urinary tract infection. Influenza screen was negative. Patient was initially admitted to stepdown floor, this morning his febrile, with a temp of 102.2, patient is tachycardic the heart rate up to 120 BPM, blood pressures are marginal, 99/71, and subsequent one was systolic in the 80s. Patient was given additional liter bolus, broad-spectrum antibiotics were started in the form of Zosyn. Blood cul tures were sent on admission, we will obtain additional set of blood cultures, urinalysis, sputum culture. Patient is being transferred to the intensive care unit. Reevaluated today on 05/22/2019, patient remains in the ICU, I saw him yesterday, and arrange for the transferred to the ICU. During my evaluation, the patient was noted to be septic, he was transferred to the ICU and received a total of 3 L of fluids, and he was placed on a short. This time on norepinephrine for low blood pressure. Patient was on norepinephrine for few hours, today he is hemodynamically stable, feeling a bit better, chest x-ray clearly shows evidence of right lower lobe pneumonia and interstitial edema bilaterally. Hence the patient will be given a dose of Lasix, and his IV fluids will be cut down to 50 mL per hour. Blood cultures are positive for gram-positive cocci, hence vancomycin was added. In the meantime we will continue Zosyn until the final identification and sensitivity noted from the blood cultures. WBC count today is down to 23.8 hemoglobin is 8.6 electrolytes are normal BUN is 53 creatinine is 1.48, improving compared to 2.42 on admission. Troponin was noted to be 0.069. Potassium is 3.5 be corrected as per protocol. Reevaluated today on 05/23/2019, patient remains in the ICU, off norepinephrine, hemodynamically stable, urine output is marginal but improving with diuretics, and he was given a dose of Lasix earlier today. Overall the patient is slightly better compared to his presentation. Chest x-ray continues to showsome component of congestive heart failure, and some component of patchy infiltrates in the right lower lobe. Small pleural effusion is noted right greater than left.WBC count remains elevated at 25.2 hemoglobin is 10.3. Electrodes are normal BUN is improving creatinine is also improving down to 1.16.patient is off norepinephrine today. Troponin level is slightly elevated at 0.069, Patient was reevaluated today on 05/24/2019, remains in the ICU, off norepinephrine, feeling better, breathing easier, however his chest x-ray continues to show some interstitial edema Lasix was given 40 mg IV push times one. Cut down his fluid down to 50 mL per hour. Clinically the patient is feeling better, breathing a lot easier, chest x-ray is still concerning, and his blood pressure remains marginal but he normally runs a low blood pressure. WBC down to 20.9 his electrolytes are normal except for low potassium being corrected. BUN is 48 creatinine 1.18. His blood cultures came back positive for MSSA. Patient is now on nafcillin as per infectious disease on the case. Other antibiotics have been discontinued. Reevaluated today on 05/25/2019, patient remains off norepinephrine, blood pressure remains low marginal. Responds well to IV Lasix given on a daily basis as needed. IV fluids remains at 50 mL per hour. Continues to have positive blood cultures, and a transesophageal echocardiogram should be done by cardiology. His blood cultures remain positive since admission. Patient remains on antibiotics as per infectious disease on the case. Chest x-ray showed right lower lobe consolidation, and possibly a small right-sided pleural effusion. Minimal effusion noted on the left. WBC count is coming down to 15.9 it was quite elevated on admission. It was 20.9 yesterday and a 25.22 days ago. His electrolytes are normal BUN however is up to 59, and creatinine is up to 1.35, we'll continue cautious hydration and hold on diuretics. Patient does have poor LV function and the findings on his renal status could be related to diuretics as well as cardiorenal in nature. Reevaluated today on 05/26/2019, patient is back on norepinephrine today at 0.06 mcg/kg/m. Patient had low blood pressure last night, low urine output, hence he is now back on norepinephrine, and he is receiving IV fluid at 70 mL per hour. Will hold on any diuretics today. Patient continues to have positive blood cultures, initiated a cardiology consultation yesterday, not seen yet by cardiology, patient will definitely require transesophageal echocardiogram to document endocarditis and to explain his persistent positive blood cultures. Ultrasound of the chest did not show enough pleural effusion on the right side to consider safe thoracentesis. Hence no thoracentesis will be done. His transthoracic echocardiogram did show evidence of poor LV function with ejection fraction of 30-35 percent. And hopefully a transesophageal echo could be done tomorrow. Clinically the patient is slightly confused, he is not in any form of respiratory distress. Chest x-ray continues to show air space disease in the right lower lobe and small tiny right-sided pleural effusion. Also there is evidence of mild pulmonary edema. On 05/27/2019 patient seen in follow-up in the intensive care unit. He is lethargic, but easily arousable, denies any acute distress, currently on 4 L of oxygen per nasal cannula, pulse ox of 98%, afebrile, he remains on small dose of levothyroid at 2 mics per minute, and maintenance IV fluids 0.9 normal saline at a rate of 75 ML per hour, Currently on nafcillin for MSSA bacteremia, was also treated with a combination of Zosyn, Levaquin and later with cefepime which have all been discontinued now for evidence of Klebsiella pneumonia in the urine culture. No fever or chills, no signs of respiratory distress, follow-up blood cultures starting on 05/25, 05/26 have been negative. Cardiology is following and will decide on the timing of the JOSE. His chest x-ray has been reviewed showing persistent right greater than left bibasilar infiltrates and/or atelectasis and bilateral pleural effusions right greater than left. Patient is maintaining stable oxygenation, he normally wears 3 L of oxygen at home, he is currently on 4 which can actually be titrated down, today's labs have been reviewed, showing white blood cell count is trending, down to 9.4 on today's labs from 12.7, hemoglobin is 9.1, serum sodium is 131, potassium is 4.0, chloride is 97, CO2 is 20, BUN is 75, creatinine is 2.65. Magaña catheter is in, draining clear urine, ranging 35-50 ML per hour. Patient has a fecal management system as in with liquid output and C. diff was negative. On 05/28/2019 patient seen in follow-up in the intensive care unit, she is resting in bed, appears fatigued, but no acute distress, is on 4 L of oxygen, his pulse ox is 98-100%. Denies any specific complaints, no shortness of breath, no component of chest pain, levo fed has been on hold since 12:00 yesterday on 05/27/2019. Today's labs have been reviewed, showing a white blood cell count is 6.9, hemoglobin of 8.6, sodium of 131, potassium is 3.5, chloride is 97, CO2 is 21, BUN 77, and creatinine is 2.8. Ration is on nafcillin for evidence of Staphylococcus aureus, susceptible to oxacillin. Urine culture on the was positive for Klebsiella pneumonia patient has been treated with Zosyn, Levaquin and later cefepime. No fever or chills, sinus rhythm on the monitor, follow-up cultures are pending, patient has been having daily repeat blood cultures, JOSE is pending sometime today. On 05/29/2019 she seen again in follow-up in the intensive care unit, seems very fatigued and worn out, but no acute distress, he denies any shortness of breath, his lung sounds are clear to auscultation, no rales, no rhonchi, room air pulse ox is 95%, maintenance IV 0.9 normal saline at a rate of 50 ML per hour, patient is receiving daily Lasix IV 40 mg. On today's labs patient's renal profile was noted to be worsening, with BUN up to 76 and creatinine 3.35. Blood cell, 7.6, hemoglobin of 8.4, serum sodium is 132, chloride is 97, CO2 is 21, calcium is 6.7, yesterday we received a call from the dietitian who stated that patient's oral intake has been extremely poor, patient is consuming less than 25% of his meals and he is not consuming any supplementation in the form of ensure. Patient's serum albumin is low at 2.0, he is developing third spacing, gen eralized edema. Yesterday his chest x-ray showed a small to moderate-sized right greater than left pleural effusions. From pulmonary perspective patient is not complaining of any shortness of breath, no cough or congestion, occasional production of clear colored sputum. No fever or chills, follow-up blood cultures positive for coagulase-negative staph, and culture from 05/27/2019 has shown no growth at the 72 hour bonifacio. ID service is following, and patient is being treated with IV antibiotic therapy JOSE was completed showing questionable mobile lesion in the highly calcified aortic valve and a vegetation could not be completely excluded, in addition there was a 1 cm circumferential mobile mass on the anterior leaflet on the atrial side suggestive of vegetation and a mobile circumferential mass on the posterior mitral leaflet suggestive of vegetation. LV function. To be moderately to severely impaired. In view of endocarditis patient was referred to CT surgery for evaluation for possibility of surgical intervention, who has recommended completing 6 weeks of antibiotics, and patient is an extremely high risk for surgical intervention, and medical treatment was recommended at this time. On 05/31/2019 patient seen in follow-up in the intensive care unit, yesterday GI service inserted Dobhoff tube and feedings have been started, with vital HP at a rate of 20 ML per hour, his goal is 80, patient at this point is eating very minimally orally. Appetite is extremely poor. No difficulty breathing, however sounds more congested on today's exam, weak congestive cough, nonproductive. Patient was placed on a couple liters of supplemental oxygen, his pulse ox this morning is 94, hemodynamically stable, his 0.9 normal saline is infusing at a rate of 10 ML per hour, in addition to the tube feedings. Today we did give the patient is a 5% albumin followed by Lasix, apparently the patient is oliguric, he only produced 400 mL in the last 24 hours, if ALLERGIES following, today's labs have been reviewed, showing white blood cell count of 6.9, hemoglobin of 8.2, serum sodium of 1:30, potassium is 4.3, chloride is 97, CO2 17, BUN is 80, and creatinine of 3.47. He is on nafcillin for MSSA bacteremia, and JOSE also revealed a vegetation on his mitral and aortic valves. Patient is not a surgical candidate, IV antibiotics and medical treatment was recommended, overall he has severe generalized weakness, poor appetite, and although there has been no acute events overnight, he is steadily declining. At this time he remains a full code and his overall prognosis is extremely guarded. Extremity Dopplers are negative for DVT Objective - Vital Signs Vital signs: Vital Signs Temp 9.5 F L 05/31/19 08:00 Pulse 91 05/31/19 08:00 Resp 24 05/31/19 08:00 BP 104/62 05/31/19 08:00 Pulse Ox 94 L 05/31/19 08:00 Intake & Output 05/30/19 05/31/19 05/31/19 18:59 06:59 18:59 Intake Total 40 380 Output Total 400 Balance 40 -20 Weight 82.1 kg Intake: IV 40 380 0.9 40 80 Nafcillin 2 gm In 300 Dextrose 5% in Water 100 ml @ 50 mls/hr IVPB Q4HR LOUIE Rx#:[id number] Output: Urine 400 Other: Voiding Method Urinal Urinal Urinal # Voids 100 - Exam GENERAL EXAM: Somnolent, but easily arousable, 79-year-old white male, fatigue, weak currently on 2L of oxygen with a pulse ox of 94%, no signs of distress HEAD: Normocephalic/atraumatic. EYES: Normal reaction of pupils, equal size. Conjunctiva pink, sclera white. NOSE: Clear with pink turbinates. THROAT: No erythema or exudates. NECK: No masses, no JVD, no thyroid enlargement, no adenopathy. CHEST: No chest wall deformity. Symmetrical expansion. LUNGS: diminished breath sounds bilaterally, he entered rhonchi, no wheezing, no rales CVS: Regular rate and rhythm, normal S1 and S2, no gallops, no murmurs, no rubs ABDOMEN: Soft, nontender. No hepatosplenomegaly, normal bowel sounds, no guarding or rigidity. EXTREMITIES: No clubbing, 2+ pedal edema, 1+ lower extremity edema bilaterally no cyanosis, 2+ pulses and upper and lower extremities. MUSCULOSKELETAL: Muscle strength and tone normal. SPINE: No scoliosis or deformity SKIN: No rashes CENTRAL NERVOUS SYSTEM: Not, extreme fatigued and oriented -2. No focal deficits, tone is normal in all 4 extremities. - Labs CBC & Chem 7: 05/31/19 05:10 05/31/19 05:10 Labs: Abnormal Lab Results - Last 24 Hours (Table) 05/31/19 05/31/19 Range/Units 05:10 05:10 RBC 2.81 L (4.30-5.90) m/uL Hgb 8.2 L (13.0-17.5) gm/dL Hct 24.9 L (39.0-53.0) % RDW 16.5 H (11.5-15.5) % Plt Count 115 L (150-450) k/uL Sodium 130 L (137-145) mmol/L Chloride 97 L (98-107) mmol/L Carbon Dioxide 17 L (22-30) mmol/L BUN 80 H (9-20) mg/dL Creatinine 3.47 H (0.66-1.25) mg/dL Calcium 6.9 L (8.4-10.2) mg/dL Microbiology - Last 24 Hours (Table) 05/25/19 05:56 Blood Culture - Final Blood No Growth after 144 hours 05/27/19 04:46 Blood Culture - Preliminary Blood No Growth after 96 hours Assessment and Plan Plan: Assessment: #1. Acute septic shock secondary to right lower lobe pneumonia, likely healthcare acquired pneumonia and gram-positive bacteremia secondary to MSSA. There is also evidence of urinary tract infection with urine cultures positive for Klebsiella pneumonia #2. 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 Acute on chronic hypoxemic respiratory failure related to the above #4. Lactic acidosis improved with IV hydration #5. Acute kidney injury likely related to ATN #6. Acute exacerbation of chronic congestive heart failure with systolic dysfunction with a known impaired left ventricular systolic function with an EF of 30-35% #7. Elevated troponins rule out non-ST elevated myocardial infarction #8. Recent admission for acute exacerbation of systolic CHF, acute kidney injury #9. History of COPD on chronic oxygen #10. Former smoker #11. History of bladder cancer, patient's TURBT in March 2019 had to be aborted related to hypotension. Follows with Dr. Calvert #12. History of coronary artery disease with previous bypass grafting #13. Hypertension #14. Previous myocardial infarction #15. Ischemic cardiomyopathy with the EF of 30-35% #16. Chronic anemia #17. History of benign prostatic hypertrophy #18. Persistent positive blood cultures with evidence of endocarditis #19. Severe medical debility related to multiple comorbidities, and critical care illness as described above #20. Generalized swelling, interstitial edema, hypoalbuminemia related to poor nutritional status Plan: Increase the tube feedings to goal, patient's appetite continues to decline, and at this point he is hardly consuming anything by mouth at all. Has severe generalized weakness, severe medical debility. He continues on nafcillin, no fever or chills, his PICC line is in place. Vital signs remain stable, encourage deep breathing and coughing, physical therapy to work with the patient. Urine output is declining, his renal profile continues to worsen, nephrology is following. Overall prognosis is extremely poor, she remains a full code, and his family may have to readdress his CODE STATUS. He remains a overflow for selective care unit. I performed a history & physical examination of the patient and discussed their management with my nurse practitioner, Taisha Saldaña. I reviewed the nurse practitioner's note and agree with the documented findings and plan of care. Lung sounds are positive for diminished with rales. The findings and the impression was discussed with the patient. I attest to the documentation by the nurse practitioner. Time with Patient: Less than 30
--- NOTE | 2019-05-31 10:44 | P.PN ---
Subjective Progress Note Date: 05/31/19 This is a 79-year-old gentleman who has been in this hospital since 05/21/2019. Patient is admitted with the diagnosis of cardiac myopathy, dyslipidemia, hypothyroidism, coronary artery disease and also with complaints of fever or chills. His blood cultures are positive for staph aureus. A JOSE examination is requested because of bacteremia. Patient was seen by Dr. Gayle and felt that patient was confused yesterday. He would consider and patient is more stable. Patient is alert and doesn't appear to be in acute distress at this time. Still seemed to be somewhat confused. His last blood culture apparently was negative. I will discuss with Dr. Gayle about timing of the JOSE. Meanwhile continue with antibiotic therapy. 05/28/2019: This 79-year-old gentleman is being treated for sepsis, renal failure, cardiomyopathy and probably some element of congestive heart failure. Patient is not feeling well. He complaints of back pain. His also complains of shortness of breath. He is oliguric. His chest x-ray shows a right-sided infiltrates and effusion. Patient's IV fluids were cut back and was given IV Lasix by nephrology, yesterday. ID specialist once JOSE. Discussed with patient and also his and we plan to the JOSE around 11:00. Meanwhile continue with antibiotic therapy. Prognosis is guarded. His creatinine has gone up, and prior patient may need dialysis if the renal function doesn't improve. Prognosis is poor. 05/29/2019: This patient remains relatively stable. No fevers. Patient is eating poorly. Denies any chest pain but complains of shortness of breath. His creatinine is about 2.83. He remains nonoliguric. Patient was seen by cardiac surgery. [place] to be a high risk candidate for surgery. Advised continued antibiotic therapy. His lungs show diminished breath sounds. Heart sounds are distant and difficult to appreciate any murmurs. We'll continue current medical therapy. Prognosis is guarded. 05/30/2019: The patient is still intensive care unit. He remains frail. Denies any acute distress. No complaints of any chest pain. Patient is not eating well. His blood pressure is maintaining about 100 systolic. Patient is on Midodrin. Patient is nonoliguric. His creatinine has gone up. His Lasix is being held. Patient is seen by cardiac surgeon felt to be at high risk candidate for surgery. Advised continuation of antibiotic therapy. Prognosis is guarded 05/31/2019: Patient condition hasn't changed. He remains weak. He doesn't have any fever. He is not eating well. His creatinine is going up. It appears that patient may be intravascularly volume depleted. Lasix is discontinued. Denies any chest pain or shortness of breath. Remains alert. His blood cultures have been negative. He is getting IV antibiotics. Lungs show diminished breath sounds. Heart is regular. We will continue current medical therapy except discontinue Lasix. Objective - Vital Signs Vital signs: Vital Signs Temp 9.5 F L 05/31/19 08:00 Pulse 91 05/31/19 08:00 Resp 24 05/31/19 08:00 BP 104/62 05/31/19 08:00 Pulse Ox 94 L 05/31/19 08:00 Intake & Output 05/30/19 05/31/19 05/31/19 18:59 06:59 18:59 Intake Total 40 380 Output Total 400 Balance 40 -20 Weight 82.1 kg Intake: IV 40 380 0.9 40 80 Nafcillin 2 gm In 300 Dextrose 5% in Water 100 ml @ 50 mls/hr IVPB Q4HR LOUIE Rx#:[id number] Output: Urine 400 Other: Voiding Method Urinal Urinal Urinal # Voids 100 - Exam GENERAL EXAM: Patient is alert and somewhat confused HEENT: Normocephalic. Normal reaction of pupils, equal size, normal range of extraocular motion. No erythema or exudates in the throat. NECK: No masses, no nuchal rigidity. CHEST: No chest wall deformity. LUNGS: Decreased air entry, especially on the left side HEART: S1 and S2 normal with no audible mumurs or gallops. Regular rhythm, femorals equal on both sides.. ABDOMEN: No hepatosplenomegaly, normal bowel sounds, no guarding or rigidity. SKIN: No rashes CENTRAL NERVOUS SYSTEM: No gross deficits EXTREMITIES: Swelling of the left leg - Labs CBC & Chem 7: 05/31/19 05:10 05/31/19 05:10 Labs: Abnormal Lab Results - Last 24 Hours (Table) 05/31/19 05/31/19 Range/Units 05:10 05:10 RBC 2.81 L (4.30-5.90) m/uL Hgb 8.2 L (13.0-17.5) gm/dL Hct 24.9 L (39.0-53.0) % RDW 16.5 H (11.5-15.5) % Plt Count 115 L (150-450) k/uL Sodium 130 L (137-145) mmol/L Chloride 97 L (98-107) mmol/L Carbon Dioxide 17 L (22-30) mmol/L BUN 80 H (9-20) mg/dL Creatinine 3.47 H (0.66-1.25) mg/dL Calcium 6.9 L (8.4-10.2) mg/dL Microbiology - Last 24 Hours (Table) 05/25/19 05:56 Blood Culture - Final Blood No Growth after 144 hours 05/27/19 04:46 Blood Culture - Preliminary Blood No Growth after 96 hours Assessment and Plan (1) Staphylococcus aureus bacteremia Current Visit: Yes Status: Acute Code(s): R78.81 - BACTEREMIA SNOMED Code(s): 867675722 (2) Cardiomyopathy Current Visit: Yes Status: Acute Code(s): I42.9 - CARDIOMYOPATHY, UNSPECIFIED SNOMED Code(s): 21894238 (3) Congestive heart failure Current Visit: Yes Status: Acute Code(s): I50.9 - HEART FAILURE, UNSPECIFIED SNOMED Code(s): 93764516 (4) Pleural effusion Current Visit: Yes Status: Acute Code(s): J90 - PLEURAL EFFUSION, NOT ELSEWHERE CLASSIFIED SNOMED Code(s): 35721528 (5) Pneumonia Current Visit: Yes Status: Acute Code(s): J18.9 - PNEUMONIA, UNSPECIFIED ORGANISM SNOMED Code(s): 139105588 (6) Sepsis Current Visit: Yes Status: Acute Code(s): A41.9 - SEPSIS, UNSPECIFIED ORGANISM SNOMED Code(s): 46064852 Plan: patient is remaining afebrile. Blood cultures are negative. Is receiving IV antibiotics. IV Lasix is discontinued. The rest of the medication be cont inued. Oral feeding is also to be considered. Prognosis guarded
[2019-05-31] MEDS ORDERED: FUROSEMIDE 10 MG/ML 10 ML VIAL IV STA (11:00)
--- NOTE | 2019-05-31 14:35 | P.PN ---
Subjective Progress Note Date: 05/31/19 Principal diagnosis: Bacterial endocarditis of the mitral valve. 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 The patient is currently laying in bed in the intensive care unit. He is in no acute distress. The patient is alert and oriented [address] He denies any complaints of pain or shortness of breath. Oxygen saturations are 94% on 2 L nasal cannula. He remains hemodynamically stable and is currently on no inotropic or pressor support. The patient has generalized +2 edema. Patient underwent a venous duplex study of his bilateral lower extremities yesterday which was negative for DVT. Blood cultures from 05/27/2019 showed no growth after 96 hours. He remains on nafcillin managed by infectious disease. He had a Dobbhoff tube placed yesterday for nutritional support. He is complaining of generalized weakness. Objective - Vital Signs Vital signs: Vital Signs Temp 98.2 F 05/31/19 12:00 Pulse 94 05/31/19 12:00 Resp 22 05/31/19 12:00 BP 96/74 05/31/19 12:00 Pulse Ox 94 L 05/31/19 12:00 Intake & Output 05/30/19 05/31/19 05/31/19 18:59 06:59 18:59 Intake Total 40 380 280 Output Total 400 75 Balance 40 -20 205 Weight 82.1 kg 82.1 kg Intake: IV 40 380 280 0.9 40 80 80 Nafcillin 2 gm In 300 200 Dextrose 5% in Water 100 ml @ 50 mls/hr IVPB Q4HR [facility] Rx#:[id number] Output: Urine 400 75 Other: Voiding Method Urinal Urinal Urinal # Voids 100 - Constitutional General appearance: Present: cooperative, no acute distress, obese - Respiratory Details: Lung sounds with expiratory wheezes throughout. Respirations are symmetrical and nonlabored. No crackles or rhonchi. Oxygen saturation is 94% on 2 L nasal cannula. - Cardiovascular Details: Regular rhythm and rate. S1 and S2 present. Negative for S3, gallop or murmur. +2 generalized edema. Knee-high sequential compression stockings in place to his bilateral lower extremities. - Gastrointestinal Gastrointestinal Comment(s): Abdomen is soft, slightly distended and nontender. Hypoactive bowel sounds present all 4 abdominal quadrants. No organomegaly appreciated. No guarding or rigidity. - Genitourinary Genitourinary Comment(s): Voiding clear tony urine. - Integumentary Integumentary Comment(s): Skin is warm and dry. No clubbing or cyanosis is present. No rash or abnormal pigmentation is present. - Neurologic Neurologic: Present: CNII-XII intact - Musculoskeletal Musculoskeletal: Present: generalized weakness, strength equal bilaterally - Psychiatric Psychiatric: Present: A&O x's 3, appropriate affect, intact judgment & insight - Allied health notes Allied health notes reviewed: nursing - Labs CBC & Chem 7: 05/31/19 05:10 05/31/19 05:10 Labs: Abnormal Lab Results - Last 24 Hours (Table) 05/31/19 05/31/19 Range/Units 05:10 05:10 RBC 2.81 L (4.30-5.90) m/uL Hgb 8.2 L (13.0-17.5) gm/dL Hct 24.9 L (39.0-53.0) % RDW 16.5 H (11.5-15.5) % Plt Count 115 L (150-450) k/uL Sodium 130 L (137-145) mmol/L Chloride 97 L (98-107) mmol/L Carbon Dioxide 17 L (22-30) mmol/L BUN 80 H (9-20) mg/dL Creatinine 3.47 H (0.66-1.25) mg/dL Calcium 6.9 L (8.4-10.2) mg/dL Microbiology - Last 24 Hours (Table) 05/25/19 05:56 Blood Culture - Final Blood No Growth after 144 hours 05/27/19 04:46 Blood Culture - Preliminary Blood No Growth after 96 hours Assessment and Plan Assessment: 1. Bacterial endocarditis. 2. Septic shock with pneumonia this admission. Lactic acidosis on admission. 3. History of coronary artery disease with previous myocardial infarction status post coronary artery bypass graft surgery 4. Acute on chronic systolic heart failure with EF 30-35% 5. Acute on chronic renal failure 6. COPD with home oxygen 4 L/m 7. Obstructive sleep apnea with home CPAP 8. Hypothyroidism 9. History of bladder cancer 10. Prostate disorder 11. Previous Heller myotomy 12. Previous tobacco dependence Plan: 1. Recommend completing 6 weeks of IV antibiotics to attempt to clear bacteremia. Blood cultures from 05/27/2019 negative 96 hours. 2. Encourage incentive spirometry use every hour while awake. 3. Increase activity as tolerated. 4. The patient would be extremely high risk for repeat open heart surgery to repair/replacement mitral valve. Will revisit the case for surgery once patient has completed IV antibiotic course. 5. Medical management per primary care and multiple consultants 6. Venous duplex study of his lower extremities rule out DVT, ordered per critical care medicine. 7. Continue GI and DVT prophylaxis. 8. We will continue to follow the patient on an as-needed basis. Time with Patient: Greater than 30
--- NOTE | 2019-05-31 18:18 | PN ---
PROGRESS NOTE DATE OF SERVICE: 05/31/2019 REASON FOR FOLLOWUP: MSSA bacteremia secondary to mitral valve endocarditis. INTERVAL HISTORY: The patient is currently afebrile. The patient is hemodynamically stable, breathing comfortably. Denies having any chest pain. Occasional cough. No nausea, no vomiting, no abdominal pain. Still has the fecal management system for the diarrhea. PHYSICAL EXAMINATION: Blood pressure 96/74 with a pulse of 94, temperature 98.2. He is 94% on 2 L nasal cannula. General description is an elderly male lying in bed in no distress. RESPIRATORY SYSTEM: Unlabored breathing. Clear to auscultation anteriorly. HEART: S1, S2. Regular rate and rhythm. ABDOMEN: Soft. No tenderness. EXTREMITIES: Some trace edema of the feet. LABS: Hemoglobin 8.1, white count 6.9, BUN of 80, creatinine 3.47. Blood cultures from 05/26 and 05/27 have been negative. DIAGNOSTIC IMPRESSION AND PLAN: 1. Patient with methicillin-susceptible Staphylococcus aeruginosa bacteremia secondary to mitral valve endocarditis. The patient is currently on nafcillin. Follow-up blood culture has been negative. To continue with Nafcillin at this point to finish his course of therapy. Gentamicin could not be added because of his kidney function. 2. Diarrhea, antibiotic-associated. Questran has been added. If diarrhea persists, will add imodium. Continue supportive care. MMODL / IJN: [id number] / MTDD
--- NOTE | 2019-05-31 20:06 | PN ---
PROGRESS NOTE Patient is seen for followup for acute kidney injury. Patient's urine output has been on the lower side the last 2 to 3 days. His creatinine continues to increase slowly. He was given albumin and Lasix yesterday, with no significant improvement in urine output. Patient's chest x-ray continues to show pulmonary vascular congestion. This morning he is resting. He is fairly comfortable. He is not in any acute distress. Blood pressure is 104/62, heart rate 91 per minute. Patient is afebrile. EXAMINATION OF THE HEART: S1 and S2. EXAMINATION OF LUNGS: Bilateral breath sounds are heard. ABDOMEN: Soft, non-tender. Examination of lower extremities shows edema 1+ bilaterally. [employer] exam is grossly intact. Patient moving all 4 extremities. Labs show hemoglobin 8.2, sodium 130, potassium 4.3, CO2 17, BUN 80, serum creatinine 3.47. ASSESSMENT: 1. Acute kidney injury, acute tubular necrosis, currently nonoliguric. However, urine output is on the lower side. Patient is also hypervolemic. I will give him a dose of 60 mg of IV push Lasix x1 now. If his renal function continues to deteriorate and volume status worsens, patient will need to be dialyzed. 2. Metabolic acidosis secondary to renal failure, maintained on oral sodium bicarb. 3. Hypervolemic hyponatremia. 4. Hypotension, currently maintained on midodrine. Patient is also on Cortef. The cortisol level was not significantly low. 5. Hypothyroidism. 6. Sepsis with Staphylococcus aureus bacteremia and mitral valve endocarditis. Repeat blood cultures on 05/27 show no growth so far. The patient is maintained on nafcillin. PLAN: Lasix 60 mg IV push x1 now. Continue with oral sodium bicarb. Continue midodrine. If volume status worsens and patient's renal function also worsens, he will need renal replacement therapy. Overall prognosis is guarded. MMODL / IJN: [id number] /
[2019-05-31] MEDS: MONTELUKAST 10 MG TAB PO SCH (20:28)
[2019-05-31] MEDS: ATORVASTATIN 20 MG TAB PO SCH (20:28)
[2019-05-31] MEDS: HYDROCORTISONE 10 MG TAB PO SCH (20:28)
[2019-05-31] MEDS: SERTRALINE 50 MG TAB PO SCH (20:37)
[2019-05-31] MEDS: SODIUM CHLORIDE 0.9% 1,000 ML IV SCH (20:37)
[2019-06-01] MEDS: NAFCILLIN 2 GM in DEXTROSE 5% IN WATER 100 ML IVPB SCH ×12 (04:27→23:16)
[2019-06-01 04:55] LABS: Anisocytosis Slight; HCT 22.8 % (39.0-53.0); HGB 7.2 gm/dL (13.0-17.5); MCH 27.4 pg (25.0-35.0); MCHC 31.4 g/dL (31.0-37.0); MCV 87.1 fL (80.0-100.0); Platelet Count 131 k/uL (150-450); RBC 2.62 m/uL (4.30-5.90); RDW 16.3 % (11.5-15.5); WBC 9.3 k/uL (3.8-10.6)
[2019-06-01 05:15] LABS: Calcium 6.9 mg/dL (8.4-10.2); Potassium 3.7 mmol/L (3.5-5.1)
[2019-06-01] MEDS: MIDODRINE 5 MG TAB PO SCH ×3 (06:04→16:47)
[2019-06-01] MEDS: LEVOTHYROXINE 112 MCG TAB PO SCH (06:04)
--- NOTE | 2019-06-01 06:33 | XR ---
EXAMINATION TYPE: XR chest 1V portable DATE OF EXAM: 06/01/2019 HISTORY: SOB. REFERENCE: Previous study dated 05/30/2019. FINDINGS: There has been a midline sternotomy. A left basilic PICC line has been inserted. Its tip is in the superior vena cava. An enteral tube has been placed. Its tip is in the stomach. Heart size upper limits of normal. There is vascular congestion and pulmonary edema. There are small, bilateral effusions. IMPRESSION: WORSENING CHANGES OF CONGESTIVE HEART FAILURE.
[2019-06-01 06:40] LABS: Band Neutrophils % 1 %; Lymphocytes # (M) 2.33 k/uL (1.0-4.8); Monocytes # (M) 0.37 k/uL (0-1.0); Neutrophils % (M) 70 %; Nucleated Red Blood Cells 0 /100 WBC (0-0); Total Cells Counted 100
[2019-06-01] MEDS ORDERED: DEXTROSE 50% SYRINGE 50 ML IVP STA (06:57)
[2019-06-01] MEDS ORDERED: DEXTROSE 10 % IN WATER 250 ML IV STA (06:59)
[2019-06-01] MEDS: SYMBICORT 160-4.5 MCG INHALER INHALATION SCH ×2 (07:19→19:37)
[2019-06-01] MEDS: IPRATROPIUM-ALBUTEROL 3 ML NEB INHALATION SCH ×3 (07:19→19:37)
[2019-06-01] MEDS: CHOLESTYRAMINE (WITH SUGAR) 4 GM PACKET PO SCH ×2 (09:03→17:09)
[2019-06-01] MEDS: HEPARIN SODIUM,PORCINE 5,000 UNIT/ML 1 ML VIAL SQ SCH ×3 (09:03→23:16)
[2019-06-01] MEDS: HYDROCORTISONE 20 MG TAB PO SCH (09:03)
[2019-06-01] MEDS: ASPIRIN 81 MG PO SCH (09:04)
[2019-06-01] MEDS: HYDROPHILIC CREAM 180 GM TUBE TOPICAL SCH ×2 (09:04→20:13)
[2019-06-01] MEDS: SODIUM BICARBONATE TAB 650 MG TAB PO SCH ×2 (09:04→20:12)
[2019-06-01] MEDS: NYSTATIN 100,000 UNIT/ML SUSP 500,000 UNIT/5 ML CUP PO SCH ×4 (09:04→20:12)
[2019-06-01] MEDS: OXYBUTYNIN XL 5 MG TAB.ER.24 PO SCH (09:04)
--- NOTE | 2019-06-01 11:46 | P.PN ---
Subjective Progress Note Date: 06/01/19 Principal diagnosis: This is a 79-year-old male followed off because of acute kidney injury secondary to sepsis and persistent staph bacteremia with blood cultures being positive m ultiple times and the last one positive is dated 05/26/2019 but then 1 after that is reportedly negative dated 05/27/2019. His creatinine continues to worsen. Urine output is minimal He remains somewhat weak and tired on oxygen nasal cannula. He is in normal sinus rhythm. Blood pressure is somewhat low. An echocardiogram ejection fraction of 30-35%, no vegetation was noted. A JOSE has not been performed Currently he is confused and feeling unwell. He is on nasal cannula oxygen. He is known with coronary artery disease, congestive heart failure, sleep apnea and COPD. Objective - Vital Signs Vital signs: Vital Signs Temp 97.9 F 06/01/19 08:00 Pulse 97 06/01/19 08:00 Resp 26 H 06/01/19 08:00 BP 101/73 06/01/19 08:00 Pulse Ox 91 L 06/01/19 08:00 Intake & Output 05/31/19 06/01/19 06/01/19 18:59 06:59 18:59 Intake Total 280 1660 440 Output Total 75 80 Balance 205 1580 440 Weight 82.1 kg 86.4 kg Intake: IV 280 720 160 0.9 80 320 60 Nafcillin 2 gm In 200 400 100 Dextrose 5% in Water 100 ml @ 50 mls/hr IVPB Q4HR [facility] Rx#:[id number] Intake, IV Titration 180 Amount Sodium Chloride 0.9% 1, 180 000 ml @ 20 mls/hr IV . Q24H [facility] Rx#:[id number] Oral 120 Tube Feeding 640 190 Other 90 Output: Urine 75 80 Other: Voiding Method Urinal Urinal Urinal On exam he is weak tired ill-looking male. HEENT exam no JVP neck is supple no facial asymmetry Lungs are clear to auscultation with air entry less than optimal Heart sounds are unremarkable for any murmur rub gallop in atrial fibrillation Abdomen is soft nontender slightly protuberant Extremity examination reveals 1+ edema on the right and 2+ on the left. Neurologically awake alert but confused disoriented - Labs CBC & Chem 7: 06/01/19 04:46 06/01/19 04:46 Labs: Abnormal Lab Results - Last 24 Hours (Table) 06/01/19 06/01/19 Range/Units 04:46 04:46 RBC 2.62 L (4.30-5.90) m/uL Hgb 7.2 L (13.0-17.5) gm/dL Hct 22.8 L (39.0-53.0) % RDW 16.3 H (11.5-15.5) % Plt Count 131 L (150-450) k/uL Sodium 130 L (137-145) mmol/L Chloride 95 L (98-107) mmol/L Carbon Dioxide 18 L (22-30) mmol/L BUN 83 H (9-20) mg/dL Creatinine 3.57 H (0.66-1.25) mg/dL Glucose 126 H (74-99) mg/dL Calcium 6.9 L (8.4-10.2) mg/dL Microbiology - Last 24 Hours (Table) 05/27/19 04:46 Blood Culture - Preliminary Blood No Growth after 120 hours 05/25/19 05:56 Blood Culture - Final Blood No Growth after 144 hours Assessment and Plan Assessment: Impression 1. Acute kidney injury secondary to sepsis. Creatinine slowly going up to 3.57 as of this morning, oliguric, this is from ongoing septic syndrome from bacteremia 2. Mild hyponatremia with sodium 130. Etiology is acute kidney injury. 3. Persistent bacteremia with staph source unclear echocardiogram shows poor ejection fraction at 35% but no vegetation 4. anemia of acute illness with hemoglobin 7.2 worse. 5. Congestive heart failure, no changes radiologically 6. Combination of gap and non-gap acidosis from acute kidney injury 7. Significant thrombocytopenia with platelet count the 50,000 range, improved to 131,000 Recommendation. 1. will aggressively diuresed and see if his creatinine will improve. We'll try Lasix 80 every 12 hours 2. May be worth trying glucosamine because of systolic dysfunction with poor ejection fraction in the 30% range . 3. Expect sodium to improve if his renal function improves. 4. He might end up on dialysis
[2019-06-01] MEDS ORDERED: FUROSEMIDE 10 MG/ML 10 ML VIAL IV STA (17:02)
[2019-06-01] MEDS: SODIUM CHLORIDE 0.9% 1,000 ML IV SCH (17:13)
[2019-06-01] MEDS: ATORVASTATIN 20 MG TAB PO SCH (20:12)
[2019-06-01] MEDS: FUROSEMIDE 10 MG/ML 10 ML VIAL IV SCH (20:12)
[2019-06-01] MEDS: SERTRALINE 50 MG TAB PO SCH (20:12)
[2019-06-01] MEDS: MONTELUKAST 10 MG TAB PO SCH (20:12)
[2019-06-01] MEDS: HYDROCORTISONE 10 MG TAB PO SCH (22:01)
--- NOTE | 2019-06-02 01:15 | P.PN ---
Subjective Progress Note Date: 05/31/19 Principal diagnosis: Septic shock 79-year-old pleasant gentleman came in with the shortness of breath and is being treated for sepsis possible source being pneumonia. Patient to sepsis improved significantly patient is off Levophed patient does have significant pulmonary edema from IV fluids and patient does have congestive heart failure ejection fraction at that to 35% received IV Lasix and this can you IV fluids will closely monitor his blood pressure patient normally has low blood pressure presently on Zosyn at this time. Being followed by multiple consultants andrew galicia infectious disease chief crew scheduler. 05/23/2019 Patient wishes daily stable patient is receiving IV Lasix because of his pulmonary edema. Patient does have bacteremia with the staph aureus probably th e source of infection rather pneumonia or urinary tract infection patient will be switched to nafcillin discussed with infectious disease. Patient the has blood cultures that are positive second set of blood cultures are positive because of which echocardiogram will be obtained to rule out any endocarditis. Patient had low-grade fever yesterday we'll repeat blood cultures again today. Creatinine improved from 1.48 to 1.16. 05/24/2019 Patient's fevers resolved but blood cell count is improving. But patient remains bacteremic. Echocardiogram did not show any valvular lesions 9 DT astemizole which was replaced I had a lengthy discussion with the patient regarding her overall goals of care patient is agreeable for DO NOT RESUSCITATE but unsure whether he can make his own duration I'll discuss with the family regarding this. Patient prognosis is extremely poor because of possible endo carditis, bladder cancer, systolic heart failure patient is more appropriate for hospice and comfort care same thing was discussed the patient will also discuss with the family. Patient is quite a bit fatigued and he believes he is not in a 10 out of the hospital. 05/25/2019 patient is not doing well patient the blood cultures were positive from will repeat blood cultures tomorrow creatinine started going up patient blood pressure is still unstable patient is back on Levophed is still getting IV fluids patient does have pulmonary edema prognosis is extremely poor, will discuss with the family regarding hospice. Was unable to reach family yesterday 05/26/2019 Patient looks bit better today off levothyroid, patient today appears to able to my dictation because of which I had lengthy discussion with him regarding DO NOT RESUSCITATE patient wants to be full code because of which I do not believe it's reasonable to discuss regarding comfort care and hospice at this time. Although I did discuss with his regarding comfort care and hospice yesterday and patient's wanted to talk to me today in person as patient now wants everything to be done at believe that discussion is inappropriate and the patient will be continued on present treatment. Pulmonology believes patient may have an empyema. Patient most probably has an otitis and will need a JOSE cardiology was consulted for that. Repeat blood cultures will be obtained for today and tomorrow patient can use to have persistent bacteremia his prognosis although remains extremely poor. 05/27/2019 Patient is very lethargic but arousable. Currently on Levophed. Otherwise patient is being continued on antibiotics in the form of nafcillin for MSSA bacteremia. Repeat cultures have been negative so far. No fever no chills. Cardiology is following for possible JOSE to rule out vegetations. Chest x-ray showed persistent right greater than left bibasilar infiltrates/atelectasis and bilateral pleural effusions right greater than left. Patient otherwise saturating well on 4 L nausea cannula oxygen. WBC count improved to 9.4 from 12.7. BUN 74 and creatinine 2.65. Patient does have [place] catheter and fecal m anagement system. C. diff negative. Pt. still wants to be full code. 05/28/2019 Patient is lethargic but awake alert oriented 3 and is able to communicate. Patient had a JOSE done today showed circumferential mobile mass on the left anterior leaflet on the atrial side suggestive of vegetation. There is a sessile mass in the posterior leaflet of the mitral valve is again suggestive of vegetation. I aortic valve vegetation cannot be completely excluded. Patient is being continued on nafcillin. Cultures for the last 24-36 hours have been negative. Chest x-ray showed stable small to medium right effusion with adjacent atelectasis and/or consolidation. Patient was up Levophed this morning were was started back again later today. No fever no chills. WBC 6.9, sodium 131 and creatinine 2.88 05/29/2018 Patient is awake, alert and oriented 3.. Currently off you forwarded. Blood pressure is fairly stable. Patient is being continued on antibiotics in the form of nafcillin for MSSA bacteremia and infected endocarditis. CT surgery course medical management at this time. Patient is high risk for cardiac surgery. Patient is able to sit in the chair comfortably today. Otherwise patient is only completing 25% of his meal. Considering Dobbhoff tube placement. Plan patient has been afebrile. Blood cultures from 05/26 showed coagulase-negative staph. Patient has been afebrile. Creatinine level II.83 today. 05/30/2019 Patient remained in the MICU. Blood pressure is fairly stable with SBP around 100. Currently on Midodrin. Levophed is on hold currently. Patient is comfortable and lying in the bed without any distress. No fever no chills. Otherwise patient does not have much appetite. Currently being continued on nafcillin. PICC line was placed today. Chest x-ray showed slight worsening interstitial edema and IV Lasix 2 doses was ordered. Renal function slightly worsened with creatinine level III.35. Repeat cultures have been negative so far. Patient is being placed on Dobbhoff tube due to poor nutrition. 05/31/2019 Patient is awake alert and oriented but looks very congested. Patient was started on tube feeding via Dobbhoff tube not tolerating very well. Otherwise very minimal oral intake. Blood pressures to in the lower side. Patient was given a dose of albumin followed by IV Lasix. Still having leg swelling and congestion the chest x-ray. Otherwise patient is being continued on antibiotics in the office nafcillin for infected endocarditis. WBC count 6.9. Patient is not a surgical candidate at this time. Nephrology cardiology and pulmonary is following. Prognosis is guarded. Constitutional: Looks less fatigued Cardio vascular: denied any chest pain, palpitations Gastrointestinal denied any nausea vomiting Pulmonary: Does have shortness of breath Neurologic denied any new focal deficits All inpatient medications were reviewed and appropriate changes in these medications as dictated in the interval history and assessment and plan. Objective - Vital Signs Vital signs: Vital Signs Temp 97.7 F 05/31/19 20:00 Pulse 101 H 05/31/19 20:00 Resp 24 05/31/19 20:00 BP 118/77 05/31/19 20:00 Pulse Ox 92 L 05/31/19 20:00 Intake & Output 05/31/19 05/31/19 06/01/19 06:59 18:59 06:59 Intake Total 380 280 520 Output Total 400 75 50 Balance -20 205 470 Weight 82.1 kg 82.1 kg Intake: IV 380 280 300 0.9 80 80 100 Nafcillin 2 gm In 300 200 200 Dextrose 5% in Water 100 ml @ 50 mls/hr IVPB Q4HR [facility] Rx#:[id number] Intake, IV Titration 100 Amount Sodium Chloride 0.9% 1, 100 000 ml @ 20 mls/hr IV . Q24H [facility] Rx#:[id number] Oral 120 Output: Urine 400 75 50 Other: Voiding Method Urinal Urinal - Exam GENERAL: The patient is alert and oriented x3, much less fatigued today looks bit better. Well developed, well nourished. HEENT: Pupils are round and equally reacting to light. EOMI. No scleral icterus. No conjunctival pallor. Normocephalic, atraumatic. No pharyngeal erythema. No thyromegaly. CARDIOVASCULAR: S1 and S2 present. No murmurs, rubs, or gallops. Does have elevated JVD PULMONARY: Bibasilar diminished air entry. Diffuse rhonchi and coarse breath sounds. no wheezing ABDOMEN: Soft, nontender, nondistended, normoactive bowel sounds. No palpable organomegaly. MUSCULOSKELETAL: No joint swelling or deformity. EXTREMITIES: No cyanosis, clubbing, 2+ pedal edema. NEUROLOGICAL: Gross neurological examination did not reveal any focal deficits. SKIN: No rashes. - Labs CBC & Chem 7: 06/01/19 04:46 06/01/19 04:46 Labs: Abnormal Lab Results - Last 24 Hours (Table) 05/31/19 05/31/19 Range/Units 05:10 05:10 RBC 2.81 L (4.30-5.90) m/uL Hgb 8.2 L (13.0-17.5) gm/dL Hct 24.9 L (39.0-53.0) % RDW 16.5 H (11.5-15.5) % Plt Count 115 L (150-450) k/uL Sodium 130 L (137-145) mmol/L Chloride 97 L (98-107) mmol/L Carbon Dioxide 17 L (22-30) mmol/L BUN 80 H (9-20) mg/dL Creatinine 3.47 H (0.66-1.25) mg/dL Calcium 6.9 L (8.4-10.2) mg/dL Microbiology - Last 24 Hours (Table) 05/25/19 05:56 Blood Culture - Final Blood No Growth after 144 hours 05/27/19 04:46 Blood Culture - Preliminary Blood No Growth after 96 hours Assessment and Plan Assessment: -Sepsis, septic shock: shock improved. due to to mitral valve vegetation/ infective endocarditis. Status post JOSE on 05/28/2019. Patient is presently on nafcillin, pt. had persistent bacteremia. Patient was on norepinephrine and receiving IV fluids per does have pulmonary edema. Blood cultures have been negative since 05/27/2019 -Acute hypoxic respiratory failure secondary to congestive heart failure exa cerbation. -Lactic acidosis secondary to sepsis resolved now. patient is presently receiving Lasix -Acute renal failure secondary to prerenal azotemia as well as acute tubular necrosis creatinine improved started going up again because of hypotension, sepsis and congestive heart failure -Hypervolemic hyponatremia secondary to congestive heart failure improving with Lasix. -Congestive heart failure chronic systolic dysfunction ejection fraction of 30- 35% with acute exacerbation, patient has ischemic cardiomyopathy -COPD chronic hypercapnic respiratory failure on oxygen at home. -Possibility of bladder cancer bladder cancer, following follows up with urology and a recent TURP which was incomplete and aborted secondary to hypotension -Coronary artery disease with previous CABG patient has recent cardiac catheterization which did not show any atherosclerotic occlusive disease that need intervention. -Hypertension -Hypothyroidism: Continue with levothyroxine -Benign prostatic hypertrophiy. -DVT prophylaxis with subcutaneous heparin twice a day Time with Patient: Greater than 30
--- NOTE | 2019-06-02 01:17 | P.PN ---
Subjective Progress Note Date: 06/01/19 Principal diagnosis: Septic shock 79-year-old pleasant gentleman came in with the shortness of breath and is being treated for sepsis possible source being pneumonia. Patient to sepsis improved significantly patient is off Levophed patient does have significant pulmonary edema from IV fluids and patient does have congestive heart failure ejection fraction at that to 35% received IV Lasix and this can you IV fluids will closely monitor his blood pressure patient normally has low blood pressure presently on Zosyn at this time. 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 05/23/2019 Patient wishes daily stable patient is receiving IV Lasix because of his pulmonary edema. Patient does have bacteremia with the staph aureus probably th e source of infection rather pneumonia or urinary tract infection patient will be switched to nafcillin discussed with infectious disease. Patient the has blood cultures that are positive second set of blood cultures are positive because of which echocardiogram will be obtained to rule out any endocarditis. Patient had low-grade fever yesterday we'll repeat blood cultures again today. Creatinine improved from 1.48 to 1.16. 05/24/2019 Patient's fevers resolved but blood cell count is improving. But patient remains bacteremic. Echocardiogram did not show any valvular lesions 9 DT astemizole which was replaced I had a lengthy discussion with the patient regarding her overall goals of care patient is agreeable for DO NOT RESUSCITATE but unsure whether he can make his own duration I'll discuss with the family regarding this. Patient prognosis is extremely poor because of possible endo carditis, bladder cancer, systolic heart failure patient is more appropriate for hospice and comfort care same thing was discussed the patient will also discuss with the family. Patient is quite a bit fatigued and he believes he is not in a 10 out of the hospital. 05/25/2019 patient is not doing well patient the blood cultures were positive from will repeat blood cultures tomorrow creatinine started going up patient blood pressure is still unstable patient is back on Levophed is still getting IV fluids patient does have pulmonary edema prognosis is extremely poor, will discuss with the family regarding hospice. Was unable to reach family yesterday 05/26/2019 Patient looks bit better today off levothyroid, patient today appears to able to my dictation because of which I had lengthy discussion with him regarding DO NOT RESUSCITATE patient wants to be full code because of which I do not believe it's reasonable to discuss regarding comfort care and hospice at this time. Although I did discuss with his regarding comfort care and hospice yesterday and patient's wanted to talk to me today in person as patient now wants everything to be done at believe that discussion is inappropriate and the patient will be continued on present treatment. Pulmonology believes patient may have an empyema. Patient most probably has an otitis and will need a JOSE cardiology was consulted for that. Repeat blood cultures will be obtained for today and tomorrow patient can use to have persistent bacteremia his prognosis although remains extremely poor. 05/27/2019 Patient is very lethargic but arousable. Currently on Levophed. Otherwise patient is being continued on antibiotics in the form of nafcillin for MSSA bacteremia. Repeat cultures have been negative so far. No fever no chills. Cardiology is following for possible JOSE to rule out vegetations. Chest x-ray showed persistent right greater than left bibasilar infiltrates/atelectasis and bilateral pleural effusions right greater than left. Patient otherwise saturating well on 4 L nausea cannula oxygen. WBC count improved to 9.4 from 12.7. BUN 74 and creatinine 2.65. Patient does have [place] catheter and fecal m anagement system. C. diff negative. Pt. still wants to be full code. 05/28/2019 Patient is lethargic but awake alert oriented 3 and is able to communicate. Patient had a JOSE done today showed circumferential mobile mass on the left anterior leaflet on the atrial side suggestive of vegetation. There is a sessile mass in the posterior leaflet of the mitral valve is again suggestive of vegetation. I aortic valve vegetation cannot be completely excluded. Patient is being continued on nafcillin. Cultures for the last 24-36 hours have been negative. Chest x-ray showed stable small to medium right effusion with adjacent atelectasis and/or consolidation. Patient was up Levophed this morning were was started back again later today. No fever no chills. WBC 6.9, sodium 131 and creatinine 2.88 05/29/2018 Patient is awake, alert and oriented 3.. Currently off you forwarded. Blood pressure is fairly stable. Patient is being continued on antibiotics in the form of nafcillin for MSSA bacteremia and infected endocarditis. CT surgery course medical management at this time. Patient is high risk for cardiac surgery. Patient is able to sit in the chair comfortably today. Otherwise patient is only completing 25% of his meal. Considering Dobbhoff tube placement. Plan patient has been afebrile. Blood cultures from 05/26 showed coagulase-negative staph. Patient has been afebrile. Creatinine level II.83 today. 05/30/2019 Patient remained in the MICU. Blood pressure is fairly stable with SBP around 100. Currently on Midodrin. Levophed is on hold currently. Patient is comfortable and lying in the bed without any distress. No fever no chills. Otherwise patient does not have much appetite. Currently being continued on nafcillin. PICC line was placed today. Chest x-ray showed slight worsening interstitial edema and IV Lasix 2 doses was ordered. Renal function slightly worsened with creatinine level III.35. Repeat cultures have been negative so far. Patient is being placed on Dobbhoff tube due to poor nutrition. 05/31/2019 Patient is awake alert and oriented but looks very congested. Patient was started on tube feeding via Dobbhoff tube not tolerating very well. Otherwise very minimal oral intake. Blood pressures to in the lower side. Patient was given a dose of albumin followed by IV Lasix. Still having leg swelling and congestion the chest x-ray. Otherwise patient is being continued on antibiotics in the office nafcillin for infected endocarditis. WBC count 6.9. Patient is not a surgical candidate at this time. Nephrology cardiology and pulmonary is following. Prognosis is guarded. 06/01/2019 Patient is awake alert but lethargic and very congested. Chest x-ray showed CHF versus pulmonary edema. Patient was started on IV Lasix as per nephrology recommendations. Patient is being continued on midodrine. Blood pressure is on the lower side with SBP 90s. Otherwise patient is being continued on nafcillin for infected endocarditis. Patient is having worsening leg swelling and edema. No leukocytosis. Nephrology and cardiology is following. Prognosis guarded with this time. Constitutional: Looks less fatigued Cardio vascular: denied any chest pain, palpitations Gastrointestinal denied any nausea vomiting Pulmonary: Does have shortness of breath Neurologic denied any new focal deficits All inpatient medications were reviewed and appropriate changes in these medications as dictated in the interval history and assessment and plan. Objective - Vital Signs Vital signs: Vital Signs Temp 97.7 F 06/01/19 16:00 Pulse 93 06/01/19 18:00 Resp 28 H 06/01/19 18:00 BP 96/58 06/01/19 18:00 Pulse Ox 92 L 06/01/19 18:00 Intake & Output 05/31/19 06/01/19 06/01/19 18:59 06:59 18:59 Intake Total 280 1660 1505 Output Total 75 80 Balance 205 1580 1505 Weight 82.1 kg 86.4 kg Intake: IV 280 720 520 0.9 80 320 220 Nafcillin 2 gm In 200 400 300 Dextrose 5% in Water 100 ml @ 50 mls/hr IVPB Q4HR [facility] Rx#:[id number] Intake, IV Titration 180 Amount Sodium Chloride 0.9% 1, 180 000 ml @ 20 mls/hr IV . Q24H [facility] Rx#:[id number] Oral 120 Tube Feeding 640 775 Other 210 Output: Urine 75 80 Other: Voiding Method Urinal Urinal Urinal # Voids 1 - Exam GENERAL: The patient is alert and oriented x3, much less fatigued today looks bit better. Well developed, well nourished. HEENT: Pupils are round and equally reacting to light. EOMI. No scleral icterus. No conjunctival pallor. Normocephalic, atraumatic. No pharyngeal erythema. No thyromegaly. CARDIOVASCULAR: S1 and S2 present. No murmurs, rubs, or gallops. Does have elevated JVD PULMONARY: Bibasilar diminished air entry. Diffuse rhonchi and coarse breath sounds. no wheezing ABDOMEN: Soft, nontender, nondistended, normoactive bowel sounds. No palpable organomegaly. MUSCULOSKELETAL: No joint swelling or deformity. EXTREMITIES: No cyanosis, clubbing, 2+ pedal edema. NEUROLOGICAL: Gross neurological examination did not reveal any focal deficits. SKIN: No rashes. - Labs CBC & Chem 7: 06/01/19 04:46 06/01/19 04:46 Labs: Abnormal Lab Results - Last 24 Hours (Table) 06/01/19 06/01/19 Range/Units 04:46 04:46 RBC 2.62 L (4.30-5.90) m/uL Hgb 7.2 L (13.0-17.5) gm/dL Hct 22.8 L (39.0-53.0) % RDW 16.3 H (11.5-15.5) % Plt Count 131 L (150-450) k/uL Sodium 130 L (137-145) mmol/L Chloride 95 L (98-107) mmol/L Carbon Dioxide 18 L (22-30) mmol/L BUN 83 H (9-20) mg/dL Creatinine 3.57 H (0.66-1.25) mg/dL Glucose 126 H (74-99) mg/dL Calcium 6.9 L (8.4-10.2) mg/dL Microbiology - Last 24 Hours (Table) 05/27/19 04:46 Blood Culture - Preliminary Blood No Growth after 120 hours Assessment and Plan Assessment: -Sepsis, septic shock: shock improved. due to to mitral valve vegetation/ infective endocarditis. Status post JOSE on 05/28/2019. Patient is presently on nafcillin, pt. had persistent bacteremia. Patient was on norepinephrine.. Blood cultures have been negative since 05/27/2019 -Acute hypoxic respiratory failure secondary to congestive heart failure exacerbation. -Lactic acidosis secondary to sepsis resolved now. patient is presently receiving Lasix -Acute renal failure secondary to prerenal azotemia as well as acute tubular necrosis creatinine improved started going up again because of hypotension, sepsis and congestive heart failure -Hypervolemic hyponatremia secondary to congestive heart failure improving with Lasix. -Congestive heart failure chronic systolic dysfunction ejection fraction of 30- 35% with acute exacerbation, patient has ischemic cardiomyopathy -COPD chronic hypercapnic respiratory failure on oxygen at home. -Possibility of bladder cancer bladder cancer, following follows up with urology and a recent TURP which was incomplete and aborted secondary to hypotension -Coronary artery disease with previous CABG patient has recent cardiac catheterization which did not show any atherosclerotic occlusive disease that need intervention. -Hypertension -Hypothyroidism: Continue with levothyroxine -Benign prostatic hypertrophiy. -DVT prophylaxis with subcutaneous heparin twice a day Time with Patient: Greater than 30
[2019-06-02] MEDS: NAFCILLIN 2 GM in DEXTROSE 5% IN WATER 100 ML IVPB SCH ×10 (03:40→20:23)
[2019-06-02 04:46] LABS: Anisocytosis Slight; Basophils # (A) 0.1 k/uL (0-0.2); Basophils % (A) 1 %; Eosinophils % (A) 0 %; HCT 20.6 % (39.0-53.0); Hypochromasia Moderate; Lymphocytes # (A) 0.9 k/uL (1.0-4.8); Lymphocytes % (A) 10 %; MCH 28.4 pg (25.0-35.0); MCHC 31.3 g/dL (31.0-37.0); MCV 90.6 fL (80.0-100.0); Mean Platelet Volume 8.7; Monocytes # (A) 0.3 k/uL (0-1.0); Monocytes % (A) 3 %; Neutrophils # (A) 7.5 k/uL (1.3-7.7); Neutrophils % (A) 85 %; Platelet Count 122 k/uL (150-450); RBC 2.28 m/uL (4.30-5.90); RDW 16.4 % (11.5-15.5); WBC 8.9 k/uL (3.8-10.6)
[2019-06-02 04:56] LABS: Calcium 7.2 mg/dL (8.4-10.2)
[2019-06-02 05:44] LABS: HGB 6.5 gm/dL (13.0-17.5)
--- NOTE | 2019-06-02 06:31 | XR ---
EXAMINATION TYPE: XR chest 1V portable DATE OF EXAM: 06/02/2019 HISTORY: SOB. REFERENCE: Previous study dated 06/01/2019. FINDINGS: There has been a midline sternotomy. A left basilic PICC line remains in place. Its tip is in the superior vena cava. The heart is mildly enlarged. There is vascular congestion and pulmonary edema. This may have worsene d slightly from the previous exam. I could not exclude tiny, bilateral effusions. IMPRESSION: THERE IS, PERHAPS, SLIGHT WORSENING IN THE PATIENT'S PULMONARY EDEMA.
[2019-06-02] MEDS: PANTOPRAZOLE 40 MG TABLET PO SCH (06:48)
[2019-06-02] MEDS: LEVOTHYROXINE 112 MCG TAB PO SCH (06:48)
[2019-06-02] MEDS: MIDODRINE 5 MG TAB PO SCH ×3 (06:48→16:45)
[2019-06-02] MEDS: FUROSEMIDE 10 MG/ML 10 ML VIAL IV SCH (08:09)
[2019-06-02] MEDS: HEPARIN SODIUM,PORCINE 5,000 UNIT/ML 1 ML VIAL SQ SCH ×2 (08:12→16:45)
[2019-06-02] MEDS: HYDROCORTISONE 20 MG TAB PO SCH (08:12)
[2019-06-02] MEDS: SODIUM BICARBONATE TAB 650 MG TAB PO SCH ×2 (08:12→20:25)
[2019-06-02] MEDS: OXYBUTYNIN XL 5 MG TAB.ER.24 PO SCH (08:12)
[2019-06-02] MEDS: NYSTATIN 100,000 UNIT/ML SUSP 500,000 UNIT/5 ML CUP PO SCH ×4 (08:12→21:24)
[2019-06-02] MEDS: ASPIRIN 81 MG PO SCH (08:12)
[2019-06-02] MEDS: HYDROPHILIC CREAM 180 GM TUBE TOPICAL SCH ×2 (08:13→21:23)
[2019-06-02] MEDS: SYMBICORT 160-4.5 MCG INHALER INHALATION SCH ×2 (09:27→19:27)
[2019-06-02] MEDS: IPRATROPIUM-ALBUTEROL 3 ML NEB INHALATION SCH ×3 (09:27→19:34)
--- NOTE | 2019-06-02 09:40 | P.PN ---
Subjective Progress Note Date: 06/02/19 This is a 79-year-old gentleman who has been in this hospital since 05/21/2019. Patient is admitted with the diagnosis of cardiac myopathy, dyslipidemia, hypothyroidism, coronary artery disease and also with complaints of fever or chills. His blood cultures are positive for staph aureus. A JOSE examination is requested because of bacteremia. Patient was seen by Dr. Gayle and felt that patient was confused yesterday. He would consider and patient is more stable. Patient is alert and doesn't appear to be in acute distress at this time. Still seemed to be somewhat confused. His last blood culture apparently was negative. I will discuss with Dr. Gayle about timing of the JOSE. Meanwhile continue with antibiotic therapy. 05/28/2019: This 79-year-old gentleman is being treated for sepsis, renal failure, cardiomyopathy and probably some element of congestive heart failure. Patient is not feeling well. He complaints of back pain. His also complains of shortness of breath. He is oliguric. His chest x-ray shows a right-sided infiltrates and effusion. Patient's IV fluids were cut back and was given IV Lasix by nephrology, yesterday. ID specialist once JOSE. Discussed with patient and also his and we plan to the JOSE around 11:00. Meanwhile continue with antibiotic therapy. Prognosis is guarded. His creatinine has gone up, and prior patient may need dialysis if the renal function doesn't improve. Prognosis is poor. 05/29/2019: This patient remains relatively stable. No fevers. Patient is eating poorly. Denies any chest pain but complains of shortness of breath. His creatinine is about 2.83. He remains nonoliguric. Patient was seen by cardiac surgery. [place] to be a high risk candidate for surgery. Advised continued antibiotic therapy. His lungs show diminished breath sounds. Heart sounds are distant and difficult to appreciate any murmurs. We'll continue current medical therapy. Prognosis is guarded. 05/30/2019: The patient is still intensive care unit. He remains frail. Denies any acute distress. No complaints of any chest pain. Patient is not eating well. His blood pressure is maintaining about 100 systolic. Patient is on Midodrin. Patient is nonoliguric. His creatinine has gone up. His Lasix is being held. Patient is seen by cardiac surgeon felt to be at high risk candidate for surgery. Advised continuation of antibiotic therapy. Prognosis is guarded 05/31/2019: Patient condition hasn't changed. He remains weak. He doesn't have any fever. He is not eating well. His creatinine is going up. It appears that patient may be intravascularly volume depleted. Lasix is discontinued. Denies any chest pain or shortness of breath. Remains alert. His blood cultures have been negative. He is getting IV antibiotics. Lungs show diminished breath sounds. Heart is regular. We will continue current medical therapy except discontinue Lasix. 06/02/2019: This patient is alert but weak and frail and seemed to be at times confused. Patient was given IV Lasix and had some urine output, but oliguric. His creatinine has gone up. His hemoglobin dropped. He is not febrile. Overall his clinical condition seemed to be deteriorating. He is getting antibiotics. We will try IV dobutamine. Chest x-ray shows some worsening of CHF. Discussed with family about CODE STATUS. We'll also wait for the input from motion pictures cartoonist regarding renal failure. Patient may need dialysis Objective - Vital Signs Vital signs: Vital Signs Temp 97 F L 06/02/19 08:00 Pulse 88 06/02/19 08:00 Resp 25 H 06/02/19 08:00 BP 100/62 06/02/19 08:00 Pulse Ox 91 L 06/02/19 08:00 Intake & Output 06/01/19 06/02/19 06/02/19 18:59 06:59 18:59 Intake Total 1505 600 280 Balance 1505 600 280 Weight 88.5 kg Intake: IV 520 540 160 0.9 220 240 60 Nafcillin 2 gm In 300 300 100 Dextrose 5% in Water 100 ml @ 50 mls/hr IVPB Q4HR [facility] Rx#:[id number] Oral 60 120 Tube Feeding 775 Other 210 Other: Voiding Method Urinal Urinal Urinal # Voids 1 1 1 - Exam GENERAL EXAM: Patient is alert and somewhat confused HEENT: Normocephalic. Normal reaction of pupils, equal size, normal range of extraocular motion. No erythema or exudates in the throat. NECK: No masses, no nuchal rigidity. CHEST: No chest wall deformity. LUNGS: Decreased air entry, especially on the left side HEART: S1 and S2 normal with no audible mumurs or gallops. Regular rhythm, femorals equal on both sides.. ABDOMEN: No hepatosplenomegaly, normal bowel sounds, no guarding or rigidity. SKIN: No rashes CENTRAL NERVOUS SYSTEM: No gross deficits EXTREMITIES: Swelling of the left leg - Labs CBC & Chem 7: 06/02/19 04:01 06/02/19 04:01 Labs: Abnormal Lab Results - Last 24 Hours (Table) 06/02/19 06/02/19 06/02/19 Range/Units 04:01 04:01 06:52 RBC 2.28 L (4.30-5.90) m/uL Hgb 6.5 L* (13.0-17.5) gm/dL Hct 20.6 L (39.0-53.0) % RDW 16.4 H (11.5-15.5) % Plt Count 122 L (150-450) k/uL Lymphocytes # 0.9 L (1.0-4.8) k/uL Sodium 131 L (137-145) mmol/L Carbon Dioxide 19 L (22-30) mmol/L BUN 88 H (9-20) mg/dL Creatinine 3.72 H (0.66-1.25) mg/dL Calcium 7.2 L (8.4-10.2) mg/dL Crossmatch See Detail Microbiology - Last 24 Hours (Table) 05/27/19 04:46 Blood Culture - Final Blood No Growth after 144 hours Assessment and Plan (1) Staphylococcus aureus bacteremia Current Visit: Yes Status: Acute Code(s): R78.81 - BACTEREMIA SNOMED Code(s): 008754806 (2) Cardiomyopathy Current Visit: Yes Status: Acute Code(s): I42.9 - CARDIOMYOPATHY, UNSPECIFIED SNOMED Code(s): 11668743 (3) Congestive heart failure Current Visit: Yes Status: Acute Code(s): I50.9 - HEART FAILURE, UNSPECIFIED SNOMED Code(s): 13254249 (4) Pleural effusion Current Visit: Yes Status: Acute Code(s): J90 - PLEURAL EFFUSION, NOT ELSEWH ERE CLASSIFIED SNOMED Code(s): 46375243 (5) Pneumonia Current Visit: Yes Status: Acute Code(s): J18.9 - PNEUMONIA, UNSPECIFIED ORGANISM SNOMED Code(s): 022366792 (6) Sepsis Current Visit: Yes Status: Acute Code(s): A41.9 - SEPSIS, UNSPECIFIED ORGANISM SNOMED Code(s): 84106620 Plan: Patient's clinical condition seemed to worsening with worsening renal failure and CHF. We'll start him on IV dobutamine. Continue the rest of the medication. Patient may need dialysis. Also discuss with family regarding CODE STATUS
[2019-06-02] MEDS: DOBUTamine DRIP 500 MG in DEXTROSE/WATER 1 250ML.BAG IV SCH (10:23)
[2019-06-02] MEDS: CHOLESTYRAMINE (WITH SUGAR) 4 GM PACKET PO SCH ×2 (10:24→16:46)
--- NOTE | 2019-06-02 12:48 | P.PN ---
Subjective Progress Note Date: 06/02/19 Principal diagnosis: This is a 79-year-old male followed off because of acute kidney injury secondary to sepsis and persistent staph bacteremia with blood cultures being positive m ultiple times and the last one positive is dated 05/26/2019 but then 1 after that is reportedly negative dated 05/27/2019. She is deemed to have bacterial endocarditis of the mitral valve mild JOSE on 05/28/2019. His creatinine continues to worsen. Urine output is minimal him a record 155 mL for the last 24 hours. His blood pressure remains in the 80s to 100 He remains somewhat weak and tired on oxygen nasal cannula. He is in normal sinus rhythm. Blood pressure is low and he is started on dobutamine. An echocardiogram ejection fraction of 30-35%, no vegetation was noted. Currently he is confused and feeling unwell. He is on nasal cannula oxygen. He is known with coronary artery disease, congestive heart failure, sleep apnea and COPD. Objective - Vital Signs Vital signs: Vital Signs Temp 97.6 F 06/02/19 12:00 Pulse 98 06/02/19 12:00 Resp 25 H 06/02/19 12:00 BP 82/50 06/02/19 12:00 Pulse Ox 96 06/02/19 12:00 Intake & Output 06/01/19 06/02/19 06/02/19 18:59 06:59 18:59 Intake Total 1505 600 479.745 Balance 1505 600 479.745 Weight 88.5 kg Intake: IV 520 540 320 0.9 220 240 120 Nafcillin 2 gm In 300 300 200 Dextrose 5% in Water 100 ml @ 50 mls/hr IVPB Q4HR [facility] Rx#:[id number] Intake, IV Titration 39.745 Amount DOBUTamine DRIP 500 mg In 39.745 Dextrose/Water 1 250ml. bag @ 5 MCG/KG/MIN 13.275 mls/hr IV .[id number] [facility] Rx#:[id number] Oral 60 120 Tube Feeding 775 Blood Product 0 Rc As-3 Unit 0 [id number] Other 210 Other: Voiding Method Urinal Urinal Urinal # Voids 1 1 1 Examination is obtunded but arousable opens eyes. He looks weak and tired and tachypneic. HEENT exam no JVP neck is supple no facial asymmetry Lungs are clear to auscultation but air entry is less than optimal. A chest x- ray shows significant worsening in pulmonary edema. Heart sounds are unremarkable for any murmur rub gallop seems to be normal sinus rhythm Abdomen is soft nontender Extremity exam was mild edema Neurologically obtunded but arousable. - Labs CBC & Chem 7: 06/02/19 04:01 06/02/19 04:01 Labs: Abnormal Lab Results - Last 24 Hours (Table) 06/02/19 06/02/19 06/02/19 Range/Units 04:01 04:01 06:52 RBC 2.28 L (4.30-5.90) m/uL Hgb 6.5 L* (13.0-17.5) gm/dL Hct 20.6 L (39.0-53.0) % RDW 16.4 H (11.5-15.5) % Plt Count 122 L (150-450) k/uL Lymphocytes # 0.9 L (1.0-4.8) k/uL Sodium 131 L (137-145) mmol/L Carbon Dioxide 19 L (22-30) mmol/L BUN 88 H (9-20) mg/dL Creatinine 3.72 H (0.66-1.25) mg/dL Calcium 7.2 L (8.4-10.2) mg/dL Crossmatch See Detail Microbiology - Last 24 Hours (Table) 05/27/19 04:46 Blood Culture - Final Blood No Growth after 144 hours Assessment and Plan Assessment: Impression 1. Acute kidney injury secondary to sepsis. Creatinine slowly going up to 3.57 and further to 3.72 as of this morning, oliguric, this is from ongoing septic syndrome from bacteremia. 2. Mild hyponatremia with sodium 131. Etiology is acute kidney injury. 3. Bacterial endocarditis, Persistent bacteremia with staph echocardiogram shows poor ejection fraction at 35% and a mitral valve vegetation on JOSE 4. anemia of acute illness with hemoglobin 7.2 > 6.5 worse. 5. Congestive heart failure, worse radiologically 6. Combination of gap and non-gap acidosis from acute kidney injury 7. Significant thrombocytopenia with platelet count the 50,000 range, as of this morning 122,000. Recommendation. 1. Agree with dobutamine. 2. Increase Lasix to start a drip at 10 mg an hour 3. Start levo fed if necessary to keep the mean arterial pressure of 65 4. Poor candidate for dialysis because of low blood pressure and poor prognosis considering recent hospitalizations and [facility] admission over the last few weeks Extensive discussion with and son and grandson regarding prognosis, difficulty of dialysis. Explained to them the choices of aggressive care versus known DO NOT RESUSCITATE or hospice and palliative measures We will discuss among themselves and let us know.
[2019-06-02] MEDS: NOREPINEPHRINE 8 MG in SODIUM CHLORIDE 0.9% 250 ML IV SCH (13:28)
[2019-06-02] MEDS: FUROSEMIDE 100 MG in SODIUM CHLORIDE 0.9% 90 ML IV SCH ×2 (13:28→21:29)
[2019-06-02] MEDS: SODIUM CHLORIDE 0.9% 1,000 ML IV SCH (16:50)
--- NOTE | 2019-06-02 18:11 | PN ---
PROGRESS NOTE DATE OF SERVICE: June 02, 2019 This is an 79-year-old gentleman who was initially admitted back on May 20. He was admitted with a diagnosis of septic shock secondary to right lower lobe pneumonia and he had gram-positive bacteremia secondary to methicillin sensitive Staph aureus. In addition, he had a Klebsiella pneumoniae urinary tract infection. Echocardiogram revealed evidence of endocarditis secondary to methicillin sensitive Staph aureus. We stopped seeing the patient a couple days ago when he was doing a bit better, but more recently, over the last 24 hours, his condition has worsened. I was asked to re- see the patient. Anyway, the patient has had poor mental status. His respiratory status has declined. In addition, he became hypotensive. Urine output was poor. He is currently on 6 L nasal cannula. He is getting a saline IV at 20 mL an hour, norepinephrine at 5 mcg/minute, dobutamine at 5 mcg/kg per minute, and Lasix drip at 10 mg an hour. He also received 1 unit of PRBCs. In addition to all this, he has a history of acute kidney injury/ATN, chronic systolic heart failure with ejection fraction of about 30-35 percent, recent CHF admission, COPD, previous tobacco history, bladder cancer, CAD with previous bypass grafting, hypertension, previous myocardial infarction, chronic anemia, BPH, persistent positive blood cultures, general medical debility, and profound anasarca and edema. I did have a long discussion with the family. Initially, the patient was a FULL CODE. Both Cardiology and Nephrology talked to the family as well about code status. After a bit of discussion, the family agreed to make the patient DNR. We are going to continue with full support short of intubation and mechanical ventilation and cardiopulmonary resuscitation. PHYSICAL EXAMINATION: VITAL SIGNS: Current vital signs are reviewed. His temperature is 97, heart rate is about 100. Respiratory rate about 26-30 breaths per minute. Blood pressure 95/57 with mean of 69 and saturations are in the mid 90s on 6 L high-flow cannula. GENERAL: He is poorly responsive. He is barely able to speak. His eyes are closed. He is tachypneic and appears to be dyspneic as well. HEENT examination is grossly unremarkable. Mucous membranes are dry. Nasal O2 in place. He is pale. NECK is supple. Full range of motion. No adenopathy. Neck veins are flat. CARDIOVASCULAR examination reveals regular rhythm and rate. Heart rate about 93 beats per minute. S1, S2 normal. Heart sounds are distant. No distinct murmurs noted. LUNGS: Reveal coarse inspiratory and expiratory rhonchi. They partially obscure heart sounds. Breath sounds are equal bilaterally. ABDOMEN is soft. No bowel sounds are heard. EXTREMITIES reveal significant edema and anasarca. SKIN: Without rash. NEUROLOGIC examination is difficult to assess. Blood cultures have been persistently positive for Coag-negative staph. Also a urine sample from May 21 was positive for Klebsiella pneumoniae. LABORATORY DATA: Includes a white count of 8.9, hemoglobin of only 6.5, hematocrit 20.6, and platelet count 122,000. Sodium 131, potassium 4, chloride 98, CO2 19. Anion gap is 14. BUN and creatinine are 88 and 3.72. They were 83 and 3.57 yesterday. A chest x-ray from today shows diffuse bilateral infiltrates. Looks like worsening pulmonary edema. It could also be infection. There appears to be bilateral effusions as well. Medications are reviewed. In addition to the aforementioned medications, the patient is getting nafcillin. ASSESSMENT: 1. Septic shock, with multiorgan system failure secondary to methicillin sensitive Staph aureus pneumonia as well as Klebsiella pneumoniae urinary tract infection. 2. 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 3. Acute on chronic hypoxemic respiratory failure with worsening respiratory status and impending krissy respiratory failure. 4. Acute kidney injury/acute tubular necrosis. 5. Acute exacerbation of chronic systolic heart failure, with ejection fraction of 30- [address]-segment elevation myocardial infarction. 7. History of chronic obstructive pulmonary disease from chronic tobacco use. 8. History of bladder cancer. 9. History of coronary artery disease with previous bypass grafting. 10.Benign essential hypertension. 11.History of previous myocardial infarction. 12.Ischemic cardiomyopathy. 13.Chronic anemia. 14.Benign prostatic hypertrophy. 15.General medical debility. 16.Profound peripheral edema and anasarca secondary to hypoalbuminemia. PLAN: Currently, the patient is on O2 at 6 L by high-flow cannula. He remains on Levophed or norepinephrine at 5 mcg/minute, dobutamine at 5 mcg/kg per minute and Lasix at 10 mg an hour. He received 1 unit of PRBCs today for hemoglobin of 6.5. His overall prognosis remains poor. Chest x-ray is worsening. I did have a long discussion with the family. The family agrees to full support short of intubation and mechanical ventilation and cardiopulmonary resuscitation. Additional recommendations and suggestions are forthcoming. Will DC some of the oral medications in favor of IV medications. Prognosis is very poor. Critical care time 34 minutes. PETER / KALYN: [id number] / MTDD
[2019-06-02] MEDS: ATORVASTATIN 20 MG TAB PO SCH (20:23)
[2019-06-02] MEDS: MONTELUKAST 10 MG TAB PO SCH (20:25)
[2019-06-02] MEDS: HYDROCORTISONE 10 MG TAB PO SCH (20:41)
[2019-06-02] MEDS: SERTRALINE 50 MG TAB PO SCH (21:23)
--- NOTE | 2019-06-03 00:09 | PN ---
PROGRESS NOTE DATE OF SERVICE: 06/02/2019. REASON FOR FOLLOWUP: MSSA mitral valve endocarditis. INTERVAL HISTORY: The patient is currently afebrile. The patient remains to be weak and lethargic with marginal blood pressure. Denies any chest pain. Some shortness of breath. No nausea or vomiting. No abdominal pain. No diarrhea. Did have diarrhea with fecal management system in but no worsening. PHYSICAL EXAMINATION: Blood pressure is 86/58 with a pulse of 90, temperature 98. He is 92% on 6 L high-flow oxygen. General description is an elderly male lying in bed in no distress. Respiratory system: Unlabored breathing with decreased breath sounds in the bases. No wheeze. Heart S1, S2. Regular rate and rhythm. Abdomen: Soft. No tenderness. Extremities 1+ edema of the feet. LABS: Hemoglobin 6.5, white count 8.9 with a BUN of 88, creatinine 3.72. Blood cultures 05/26 and 05/27 has been negative. DIAGNOSTIC IMPRESSION AND PLAN: Patient with MSSA mitral valve endocarditis. The patient has cleared his bacteremia and is currently covered with Nafcillin. Unfortunately, the patient did have evidence of multiorgan failure especially with kidney failure with progressive downward course. Family made the patient NO CODE. To continue with Nafcillin. Monitor clinical course closely. Overall prognosis remains to be poor. Family at the bedside, questions answered. MMODL / IJN: [id number] /
[2019-06-03] MEDS: NAFCILLIN 2 GM in DEXTROSE 5% IN WATER 100 ML IVPB SCH ×14 (00:50→23:12)
[2019-06-03] MEDS: HEPARIN SODIUM,PORCINE 5,000 UNIT/ML 1 ML VIAL SQ SCH ×4 (00:51→23:12)
--- NOTE | 2019-06-03 03:24 | P.PN ---
Subjective Progress Note Date: 06/02/19 Principal diagnosis: Septic shock 79-year-old pleasant gentleman came in with the shortness of breath and is being treated for sepsis possible source being pneumonia. Patient to sepsis improved significantly patient is off Levophed patient does have significant pulmonary edema from IV fluids and patient does have congestive heart failure ejection fraction at that to 35% received IV Lasix and this can you IV fluids will closely monitor his blood pressure patient normally has low blood pressure presently on Zosyn at this time. Being followed by multiple consultants andrew galicia infectious disease inspector technician. 05/23/2019 Patient wishes daily stable patient is receiving IV Lasix because of his pulmonary edema. Patient does have bacteremia with the staph aureus probably th e source of infection rather pneumonia or urinary tract infection patient will be switched to nafcillin discussed with infectious disease. Patient the has blood cultures that are positive second set of blood cultures are positive because of which echocardiogram will be obtained to rule out any endocarditis. Patient had low-grade fever yesterday we'll repeat blood cultures again today. Creatinine improved from 1.48 to 1.16. 05/24/2019 Patient's fevers resolved but blood cell count is improving. But patient remains bacteremic. Echocardiogram did not show any valvular lesions 9 DT astemizole which was replaced I had a lengthy discussion with the patient regarding her overall goals of care patient is agreeable for DO NOT RESUSCITATE but unsure whether he can make his own duration I'll discuss with the family regarding this. Patient prognosis is extremely poor because of possible endo carditis, bladder cancer, systolic heart failure patient is more appropriate for hospice and comfort care same thing was discussed the patient will also discuss with the family. Patient is quite a bit fatigued and he believes he is not in a 10 out of the hospital. 05/25/2019 patient is not doing well patient the blood cultures were positive from will repeat blood cultures tomorrow creatinine started going up patient blood pressure is still unstable patient is back on Levophed is still getting IV fluids patient does have pulmonary edema prognosis is extremely poor, will discuss with the family regarding hospice. Was unable to reach family yesterday 05/26/2019 Patient looks bit better today off levothyroid, patient today appears to able to my dictation because of which I had lengthy discussion with him regarding DO NOT RESUSCITATE patient wants to be full code because of which I do not believe it's reasonable to discuss regarding comfort care and hospice at this time. Although I did discuss with his regarding comfort care and hospice yesterday and patient's wanted to talk to me today in person as patient now wants everything to be done at believe that discussion is inappropriate and the patient will be continued on present treatment. Pulmonology believes patient may have an empyema. Patient most probably has an otitis and will need a JOSE cardiology was consulted for that. Repeat blood cultures will be obtained for today and tomorrow patient can use to have persistent bacteremia his prognosis although remains extremely poor. 05/27/2019 Patient is very lethargic but arousable. Currently on Levophed. Otherwise patient is being continued on antibiotics in the form of nafcillin for MSSA bacteremia. Repeat cultures have been negative so far. No fever no chills. Cardiology is following for possible JOSE to rule out vegetations. Chest x-ray showed persistent right greater than left bibasilar infiltrates/atelectasis and bilateral pleural effusions right greater than left. Patient otherwise saturating well on 4 L nausea cannula oxygen. WBC count improved to 9.4 from 12.7. BUN 74 and creatinine 2.65. Patient does have [place] catheter and fecal m anagement system. C. diff negative. Pt. still wants to be full code. 05/28/2019 Patient is lethargic but awake alert oriented 3 and is able to communicate. Patient had a JOSE done today showed circumferential mobile mass on the left anterior leaflet on the atrial side suggestive of vegetation. There is a sessile mass in the posterior leaflet of the mitral valve is again suggestive of vegetation. I aortic valve vegetation cannot be completely excluded. Patient is being continued on nafcillin. Cultures for the last 24-36 hours have been negative. Chest x-ray showed stable small to medium right effusion with adjacent atelectasis and/or consolidation. Patient was up Levophed this morning were was started back again later today. No fever no chills. WBC 6.9, sodium 131 and creatinine 2.88 05/29/2018 Patient is awake, alert and oriented 3.. Currently off you forwarded. Blood pressure is fairly stable. Patient is being continued on antibiotics in the form of nafcillin for MSSA bacteremia and infected endocarditis. CT surgery course medical management at this time. Patient is high risk for cardiac surgery. Patient is able to sit in the chair comfortably today. Otherwise patient is only completing 25% of his meal. Considering Dobbhoff tube placement. Plan patient has been afebrile. Blood cultures from 05/26 showed coagulase-negative staph. Patient has been afebrile. Creatinine level II.83 today. 05/30/2019 Patient remained in the MICU. Blood pressure is fairly stable with SBP around 100. Currently on Midodrin. Levophed is on hold currently. Patient is comfortable and lying in the bed without any distress. No fever no chills. Otherwise patient does not have much appetite. Currently being continued on nafcillin. PICC line was placed today. Chest x-ray showed slight worsening interstitial edema and IV Lasix 2 doses was ordered. Renal function slightly worsened with creatinine level III.35. Repeat cultures have been negative so far. Patient is being placed on Dobbhoff tube due to poor nutrition. 05/31/2019 Patient is awake alert and oriented but looks very congested. Patient was started on tube feeding via Dobbhoff tube not tolerating very well. Otherwise very minimal oral intake. Blood pressures to in the lower side. Patient was given a dose of albumin followed by IV Lasix. Still having leg swelling and congestion the chest x-ray. Otherwise patient is being continued on antibiotics in the office nafcillin for infected endocarditis. WBC count 6.9. Patient is not a surgical candidate at this time. Nephrology cardiology and pulmonary is following. Prognosis is guarded. 06/01/2019 Patient is awake alert but lethargic and very congested. Chest x-ray showed CHF versus pulmonary edema. Patient was started on IV Lasix as per nephrology recommendations. Patient is being continued on midodrine. Blood pressure is on the lower side with SBP 90s. Otherwise patient is being continued on nafcillin for infected endocarditis. Patient is having worsening leg swelling and edema. No leukocytosis. Nephrology and cardiology is following. Prognosis guarded with this time. 06/02/2019 Patient seems more lethargic and confused today. Patient is still fluid overloaded otherwise. Currently continued on IV Lasix. Also on pressor support with Levophed and dobutamine. Renal function is worsening. Hemoglobin is 6.4). Patient is still hypotensive and required pressor support. And also fluid overloaded. Prognosis poor at this time. Nephrology and cardiology is on board. Currently being continued on antibiotics in the form of nafcillin. Constitutional: Looks less fatigued Cardio vascular: denied any chest pain, palpitations Gastrointestinal denied any nausea vomiting Pulmonary: Does have shortness of breath Neurologic no new focal deficits All inpatient medications were reviewed and appropriate changes in these medications as dictated in the interval history and assessment and plan. Objective - Vital Signs Vital signs: Vital Signs Temp 97.6 F 06/02/19 16:00 Pulse 98 06/02/19 17:00 Resp 22 06/02/19 17:00 BP 68/52 06/02/19 17:00 Pulse Ox 90 L 06/02/19 17:00 Intake & Output 06/01/19 06/02/19 06/02/19 18:59 06:59 18:59 Intake Total 5289 865 9959.327 Output Total 220 Balance 1505 600 931.327 Weight 88.5 kg Intake: IV 520 540 520 0.9 220 240 220 Nafcillin 2 gm In 300 300 300 Dextrose 5% in Water 100 ml @ 50 mls/hr IVPB Q4HR LOUIE Rx#:[id number] Intake, IV Titration 201.327 Amount DOBUTamine DRIP 500 mg In 105.745 Dextrose/Water 1 250ml. bag @ 5 MCG/KG/MIN 13.275 mls/hr IV .[id number] LOUIE Rx#:[id number] Furosemide 100 mg In 40 Sodium Chloride 0.9% 90 ml @ 10 MG/HR 10 mls/hr IV .Q10H LOUIE Rx#: [id number] Norepinephrine 8 mg In 55.582 Sodium Chloride 0.9% 250 ml @ 0.05 MCG/KG/MIN 8. 562 mls/hr IV .Q24H LOUIE Rx#:[id number] Oral 60 120 Tube Feeding 775 Blood Product 310 Rc As-3 Unit 310 [id number] Other 210 Output: Urine 220 Other: Voiding Method Urinal Urinal Urinal # Voids 1 1 1 - Exam GENERAL: The patient is alert and oriented x3, lethargic and fatigued.. Well developed, well nourished. HEENT: Pupils are round and equally reacting to light. EOMI. No scleral icterus. No conjunctival pallor. Normocephalic, atraumatic. No pharyngeal erythema. No thyromegaly. CARDIOVASCULAR: S1 and S2 present. No murmurs, rubs, or gallops. Does have elevated JVD PULMONARY: Bibasilar diminished air entry. Diffuse rhonchi and coarse breath sounds. no wheezing ABDOMEN: Soft, nontender, nondistended, normoactive bowel sounds. No palpable o rganomegaly. MUSCULOSKELETAL: No joint swelling or deformity. EXTREMITIES: No cyanosis, clubbing, 2+ pedal edema. NEUROLOGICAL: Gross neurological examination did not reveal any focal deficits. SKIN: No rashes. - Labs CBC & Chem 7: 06/02/19 04:01 06/02/19 04:01 Labs: Abnormal Lab Results - Last 24 Hours (Table) 06/02/19 06/02/19 06/02/19 Range/Units 04:01 04:01 06:52 RBC 2.28 L (4.30-5.90) m/uL Hgb 6.5 L* (13.0-17.5) gm/dL Hct 20.6 L (39.0-53.0) % RDW 16.4 H (11.5-15.5) % Plt Count 122 L (150-450) k/uL Lymphocytes # 0.9 L (1.0-4.8) k/uL Sodium 131 L (137-145) mmol/L Carbon Dioxide 19 L (22-30) mmol/L BUN 88 H (9-20) mg/dL Creatinine 3.72 H (0.66-1.25) mg/dL Calcium 7.2 L (8.4-10.2) mg/dL Crossmatch See Detail Microbiology - Last 24 Hours (Table) 06/02/19 13:15 Urine Culture - Preliminary Urine,Catheterized 05/27/19 04:46 Blood Culture - Final Blood No Growth after 144 hours Assessment and Plan Assessment: -Sepsis, septic shock: shock improved. due to to mitral valve vegetation/ infective endocarditis. Status post JOSE on 05/28/2019. Patient is presently on nafcillin, pt. had persistent bacteremia. Patient was on norepinephrine.. Blood cultures have been negative since 05/27/2019 -Acute hypoxic respiratory failure secondary to congestive heart failure exacerbation. -Lactic acidosis secondary to sepsis resolved now. patient is presently receiving Lasix -Acute renal failure secondary to prerenal azotemia as well as acute tubular necrosis creatinine improved started going up again because of hypotension, sepsis and congestive heart failure -Hypervolemic hyponatremia secondary to congestive heart failure improving with Lasix. -Congestive heart failure chronic systolic dysfunction ejection fraction of 30- 35% with acute exacerbation, patient has ischemic cardiomyopathy -COPD chronic hypercapnic respiratory failure on oxygen at home. -Possibility of bladder cancer bladder cancer, following follows up with urology and a recent TURP which was incomplete and aborted secondary to hypotension -Coronary artery disease with previous CABG patient has recent cardiac catheterization which did not show any atherosclerotic occlusive disease that need intervention. -Hypertension -Hypothyroidism: Continue with levothyroxine -Benign prostatic hypertrophiy. -DVT prophylaxis with subcutaneous heparin twice a day Time with Patient: Greater than 30
[2019-06-03] MEDS: FUROSEMIDE 100 MG in SODIUM CHLORIDE 0.9% 90 ML IV SCH ×2 (06:09→15:15)
[2019-06-03 06:35] LABS: HCT 22.4 % (39.0-53.0); HGB 7.8 gm/dL (13.0-17.5); Hypochromasia Slight; MCH 31.1 pg (25.0-35.0); MCHC 34.8 g/dL (31.0-37.0); MCV 89.3 fL (80.0-100.0); Mean Platelet Volume 7.8; Platelet Count 100 k/uL (150-450); Poikilocytosis Slight; RBC 2.51 m/uL (4.30-5.90); RDW 15.9 % (11.5-15.5); WBC 6.7 k/uL (3.8-10.6)
[2019-06-03 07:39] LABS: Calcium 7.1 mg/dL (8.4-10.2); Magnesium 1.8 mg/dL (1.6-2.3); Potassium 2.8 mmol/L (3.5-5.1)
[2019-06-03] MEDS: SYMBICORT 160-4.5 MCG INHALER INHALATION SCH ×2 (07:50→19:34)
[2019-06-03] MEDS: IPRATROPIUM-ALBUTEROL 3 ML NEB INHALATION SCH ×3 (07:50→19:34)
[2019-06-03] MEDS: DOBUTamine DRIP 500 MG in DEXTROSE/WATER 1 250ML.BAG IV SCH (08:21)
[2019-06-03] MEDS: NOREPINEPHRINE 8 MG in SODIUM CHLORIDE 0.9% 250 ML IV SCH (08:22)
[2019-06-03] MEDS: MIDODRINE 5 MG TAB PO SCH ×3 (08:32→17:52)
[2019-06-03] MEDS: ASPIRIN 81 MG PO SCH (08:39)
[2019-06-03] MEDS: SODIUM BICARBONATE TAB 650 MG TAB PO SCH ×2 (08:40→20:02)
[2019-06-03] MEDS: LEVOTHYROXINE 112 MCG TAB PO SCH (08:45)
[2019-06-03] MEDS: POTASSIUM CHLORIDE 20 MEQ in WATER FOR INJECTION 1 100ML.BAG IVPB SCH ×2 (09:18→11:27)
[2019-06-03] MEDS: HYDROCORTISONE 20 MG TAB PO SCH (10:50)
[2019-06-03] MEDS: HYDROPHILIC CREAM 180 GM TUBE TOPICAL SCH ×2 (10:51→20:03)
[2019-06-03] MEDS: OXYBUTYNIN XL 5 MG TAB.ER.24 PO SCH (10:51)
[2019-06-03] MEDS: MAGNESIUM SULFATE-D5W PMX 1 GM in DEXTROSE/WATER 1 100ML.BAG IVPB SCH ×2 (11:30→13:17)
[2019-06-03 11:58] LABS: ABG HCO3 20 mmol/L (21-25); ABG Oxygen Saturation 98.7 % (94-97); ABG PCO2 22 mmHg (35-45); ABG PO2 171 mmHg (83-108); ABG TCO2 21 mmol/L (19-24); Allen Test Performed? Yes
[2019-06-03 12:03] LABS: ABG PH 7.56 (7.35-7.45)
--- NOTE | 2019-06-03 16:20 | P.PN ---
Subjective Progress Note Date: 06/03/19 On 06/03/2019, I'm seeing this patient for a follow-up. Unfortunately, this patient is doing poorly. The patient was septic secondary to underlying endocarditis. The patient had an MSSA mitral valve endocarditis there was possible involvement of the aortic valve also. The patient is covered and IV na fcillin. The patient is hemodynamically stable. Repeated cultures of been negative. The patient however is still hemodynamically unstable. Is requiring pressors for blood pressure control. Earlier this morning, was on a combination of dobutamine at 5 mcg/kg per minute and norepinephrine which was running at 0.05 mcg/kg per minute. Norepinephrine was being used for regulating blood pressure as the patient was getting hypotensive while being on dobutamine. Also, the patient was in heart failure. The patient was in pulmonary edema. The patient was started on Lasix therapy at 10 mg an hour and the patient remains in a positive fluid balance. Chest x-ray from yesterday shows pulmonary edema with worsening in interstitial edema compared to the chest x-rays done earlier. As for the renal function, the patient has progressive worsening in acute kidney injury. His creatinine is at 3.9 with a mean of 86. On today's blood work, her blood gases was done as the patient wasn't 100% nonrebreather facemasks. The blood gas showed acute respiratory acidosis with a pH of 7.56 and pO2 of 22 and pO2 171 while being on the FiO2 100%. He is lethargic. He is unable to communicate effectively. Denies having any chest pain. Seems to be shortness of breath even at rest. That fluid balance over the past 24 hours has been +2.1 L and the patient has developed another 1.5 L positive fluid balance over the past 12 hours. The patient family had a lengthy discussion with us and his CODE STATUS is been switched to the EMR DO NOT INTUBATE. Objective - Vital Signs Vital signs: Vital Signs Temp 96.3 F L 06/03/19 12:00 Pulse 96 06/03/19 15:45 Resp 16 06/03/19 15:45 BP 88/59 06/03/19 15:45 Pulse Ox 97 06/03/19 15:45 Intake & Output 06/02/19 06/03/19 06/03/19 18:59 06:59 18:59 Intake Total 8711.165 6389.053 1046.808 Output Total 250 635 625 Balance 944.527 652.053 421.808 Weight 89.3 kg 89.3 kg Intake: IV 540 680 410 0.9 240 260 160 Furosemide 100 mg In 120 50 Sodium Chloride 0.9% 90 ml @ 10 MG/HR 10 mls/hr IV .Q10H LOUIE Rx#: [id number] Nafcillin 2 gm In 300 300 200 Dextrose 5% in Water 100 ml @ 50 mls/hr IVPB Q4HR LOUIE Rx#:[id number] Intake, IV Titration 224.527 607.053 636.808 Amount DOBUTamine DRIP 500 mg In 118.945 263.2 Dextrose/Water 1 250ml. bag @ 5 MCG/KG/MIN 13.275 mls/hr IV .[id number] LOUIE Rx#:[id number] Furosemide 100 mg In 50 176.834 91 Sodium Chloride 0.9% 90 ml @ 10 MG/HR 10 mls/hr IV .Q10H LOUIE Rx#: [id number] Magnesium Sulfate-D5w Pmx 200 1 gm In Dextrose/Water 1 100ml.bag @ 100 mls/hr IVPB Q1H LOUIE Rx#: [id number] Norepinephrine 8 mg In 55.582 167.019 45.808 Sodium Chloride 0.9% 250 ml @ 0.05 MCG/KG/MIN 8. 562 mls/hr IV .Q24H LOUIE Rx#:[id number] Potassium Chloride 20 meq 300 In Water For Injection 1 100ml.bag @ 50 mls/hr IVPB Q2H LOUIE Rx#: [id number] Oral 120 Blood Product 310 Rc As-3 Unit 310 [id number] Output: Urine 250 635 625 Other: Voiding Method Urinal Indwelling Catheter Indwelling Catheter # Voids 1 - Exam Gen. appearance fatigued or lethargic and hard to communicate currently on her percent on a beta facemask with some degree of shortness of breath even at rest. Head exam was generally normal. There was no scleral icterus or corneal arcus. Mucous membranes were moist. Examination of the neck shows positive JVDs. No goiter or neck masses. No neck stiffness pain and oropharyngeal candidiasis or thrush. Lungs sounds are diminished bilaterally along with some bibasilar crackles. Heart sounds are regular with a systolic ejection murmur grade 2/6 systolic the precordium. No right ventricular heave or thrill. Abdominal exam revealed normal bowel sounds. The abdomen was soft, non-tender, and without masses, organomegaly, or appreciable enlargement of the abdominal aorta. Extremities reveal + edema there is no cyanosis or clubbing. Neurologic exam is nonfocal and the patient has no focal neurological deficits. Pupils are equal and reactive to light. Examination of the skin revealed no evidence of significant rashes, suspicious appearing nevi or other concerning lesions. - Labs CBC & Chem 7: 06/03/19 06:11 06/03/19 15:04 Labs: Abnormal Lab Results - Last 24 Hours (Table) 06/03/19 06/03/19 06/03/19 Range/Units 06:11 06:11 11:56 RBC 2.51 L (4.30-5.90) m/uL Hgb 7.8 L (13.0-17.5) gm/dL Hct 22.4 L (39.0-53.0) % RDW 15.9 H (11.5-15.5) % Plt Count 100 L (150-450) k/uL ABG pH 7.56 H* (7.35-7.45) ABG pCO2 22 L (35-45) mmHg ABG pO2 171 H (83-108) mmHg ABG HCO3 20 L (21-25) mmol/L ABG O2 Saturation 98.7 H (94-97) % Sodium 134 L (137-145) mmol/L Potassium 2.8 L (3.5-5.1) mmol/L Carbon Dioxide 19 L (22-30) mmol/L BUN 86 H (9-20) mg/dL Creatinine 3.98 H (0.66-1.25) mg/dL Glucose 102 H (74-99) mg/dL Calcium 7.1 L (8.4-10.2) mg/dL Phosphorus 8.0 H (2.5-4.5) mg/dL 06/03/19 Range/Units 15:04 RBC (4.30-5.90) m/uL Hgb (13.0-17.5) gm/dL Hct (39.0-53.0) % RDW (11.5-15.5) % Plt Count (150-450) k/uL ABG pH (7.35-7.45) ABG pCO2 (35-45) mmHg ABG pO2 (83-108) mmHg ABG HCO3 (21-25) mmol/L ABG O2 Saturation (94-97) % Sodium (137-145) mmol/L Potassium 3.2 L (3.5-5.1) mmol/L Carbon Dioxide (22-30) mmol/L BUN (9-20) mg/dL Creatinine (0.66-1.25) mg/dL Glucose (74-99) mg/dL Calcium (8.4-10.2) mg/dL Phosphorus (2.5-4.5) mg/dL Microbiology - Last 24 Hours (Table) 06/02/19 13:15 Urine Culture - Final Urine,Catheterized Assessment and Plan Plan: 1 septic shock secondary to MSSA infective endocarditis. The patient has been on IV nafcillin. The patient's most recent blood cultures of been negative as the patient is being treated with IV antibiotics. Not surgical candidate. He was having persistent bacteremia which is improved. Nevertheless, the patient is still requiring pressors for hemodynamic support 2 CHF with systolic heart failure and ejection fraction of 30% 3 acute pulmonary edema secondary decompensated heart failure 4 hypotension secondary to above, a combination of cardiogenic and septic shock and the patient is on a combination of antibiotics, and pressors. 5 lactic acidosis improved 6 acute kidney injury secondary to prerenal azotemia/ATN. Noted the patient was quite hypotensive related to sepsis and cardiogenic shock. The patient is curre ntly on Lasix drip. 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 Continue IV nafcillin. Continue dobutamine. Continue norepinephrine. Monitor fluid balance. Continued IV Lasix drip. Monitor electrolytes. Monitor renal function. Utilizes dose hydrocortisone. Discontinue the oral. Prognosis poor. We'll continue to follow make further recommendations based on his progress.
[2019-06-03] MEDS ORDERED: POTASSIUM CHLORIDE 20 MEQ in WATER FOR INJECTION 1 100ML.BAG IVPB STA (16:54)
--- NOTE | 2019-06-03 17:16 | P.PN ---
Subjective Progress Note Date: 06/03/19 This is a 79-year-old gentleman who has been in this hospital since 05/21/2019. Patient is admitted with the diagnosis of cardiac myopathy, dyslipidemia, hypothyroidism, coronary artery disease and also with complaints of fever or chills. His blood cultures are positive for staph aureus. A JOSE examination is requested because of bacteremia. Patient was seen by Dr. Gayle and felt that patient was confused yesterday. He would consider and patient is more stable. Patient is alert and doesn't appear to be in acute distress at this time. Still seemed to be somewhat confused. His last blood culture apparently was negative. I will discuss with Dr. Gayle about timing of the JOSE. Meanwhile continue with antibiotic therapy. 05/28/2019: This 79-year-old gentleman is being treated for sepsis, renal failure, cardiomyopathy and probably some element of congestive heart failure. Patient is not feeling well. He complaints of back pain. His also complains of shortness of breath. He is oliguric. His chest x-ray shows a right-sided infiltrates and effusion. Patient's IV fluids were cut back and was given IV Lasix by nephrology, yesterday. ID specialist once JOSE. Discussed with patient and also his and we plan to the JOSE around 11:00. Meanwhile continue with antibiotic therapy. Prognosis is guarded. His creatinine has gone up, and prior patient may need dialysis if the renal function doesn't improve. Prognosis is poor. 05/29/2019: This patient remains relatively stable. No fevers. Patient is eating poorly. Denies any chest pain but complains of shortness of breath. His creatinine is about 2.83. He remains nonoliguric. Patient was seen by cardiac surgery. [place] to be a high risk candidate for surgery. Advised continued antibiotic therapy. His lungs show diminished breath sounds. Heart sounds are distant and difficult to appreciate any murmurs. We'll continue current medical therapy. Prognosis is guarded. 05/30/2019: The patient is still intensive care unit. He remains frail. Denies any acute distress. No complaints of any chest pain. Patient is not eating well. His blood pressure is maintaining about 100 systolic. Patient is on Midodrin. Patient is nonoliguric. His creatinine has gone up. His Lasix is being held. Patient is seen by cardiac surgeon felt to be at high risk candidate for surgery. Advised continuation of antibiotic therapy. Prognosis is guarded 05/31/2019: Patient condition hasn't changed. He remains weak. He doesn't have any fever. He is not eating well. His creatinine is going up. It appears that patient may be intravascularly volume depleted. Lasix is discontinued. Denies any chest pain or shortness of breath. Remains alert. His blood cultures have been negative. He is getting IV antibiotics. Lungs show diminished breath sounds. Heart is regular. We will continue current medical therapy except discontinue Lasix. 06/02/2019: This patient is alert but weak and frail and seemed to be at times confused. Patient was given IV Lasix and had some urine output, but oliguric. His creatinine has gone up. His hemoglobin dropped. He is not febrile. Overall his clinical condition seemed to be deteriorating. He is getting antibiotics. We will try IV dobutamine. Chest x-ray shows some worsening of CHF. Discussed with family about CODE STATUS. We'll also wait for the input from bilingual legal assistant regarding renal failure. Patient may need dialysis. 06/03/2019: This patient continues to do poorly. He remains confused, weak and frail. His urine output is still poor. He is on IV Lasix drip along with a dobutamine. This seemed some improvement in the urine output. Remains relative ly hypotensive. His continues to be on antibiotics. His no CODE STATUS was changed to no intubation. We'll continue current medical therapy. He is being treated for infected endocarditis. Prognosis is poor Objective - Vital Signs Vital signs: Vital Signs Temp 96.3 F L 06/03/19 12:00 Pulse 96 06/03/19 15:45 Resp 16 06/03/19 15:45 BP 88/59 06/03/19 15:45 Pulse Ox 97 06/03/19 15:45 Intake & Output 06/02/19 06/03/19 06/03/19 18:59 06:59 18:59 Intake Total 5601.567 3387.053 1076.808 Output Total 250 635 685 Balance 944.527 652.053 391.808 Weight 89.3 kg 89.3 kg Intake: IV 540 680 440 0.9 240 260 180 Furosemide 100 mg In 120 60 Sodium Chloride 0.9% 90 ml @ 10 MG/HR 10 mls/hr IV .Q10H LOUIE Rx#: [id number] Nafcillin 2 gm In 300 300 200 Dextrose 5% in Water 100 ml @ 50 mls/hr IVPB Q4HR LOUIE Rx#:[id number] Intake, IV Titration 224.527 607.053 636.808 Amount DOBUTamine DRIP 500 mg In 118.945 263.2 Dextrose/Water 1 250ml. bag @ 5 MCG/KG/MIN 13.275 mls/hr IV .[id number] LOUIE Rx#:[id number] Furosemide 100 mg In 50 176.834 91 Sodium Chloride 0.9% 90 ml @ 10 MG/HR 10 mls/hr IV .Q10H LOUIE Rx#: [id number] Magnesium Sulfate-D5w Pmx 200 1 gm In Dextrose/Water 1 100ml.bag @ 100 mls/hr IVPB Q1H LOUIE Rx#: [id number] Norepinephrine 8 mg In 55.582 167.019 45.808 Sodium Chloride 0.9% 250 ml @ 0.05 MCG/KG/MIN 8. 562 mls/hr IV .Q24H LOUIE Rx#:[id number] Potassium Chloride 20 meq 300 In Water For Injection 1 100ml.bag @ 50 mls/hr IVPB Q2H LOUIE Rx#: [id number] Oral 120 Blood Product 310 Rc As-3 Unit 310 [id number] Output: Urine 250 635 685 Other: Voiding Method Urinal Indwelling Catheter Indwelling Catheter # Voids 1 - Exam GENERAL EXAM: Patient is alert and somewhat confused HEENT: Normocephalic. Normal reaction of pupils, equal size, normal range of extraocular motion. No erythema or exudates in the throat. NECK: No masses, no nuchal rigidity. CHEST: No chest wall deformity. LUNGS: Decreased air entry, especially on the left side HEART: S1 and S2 normal with no audible mumurs or gallops. Regular rhythm, femorals equal on both sides.. ABDOMEN: No hepatosplenomegaly, normal bowel sounds, no guarding or rigidity. SKIN: No rashes CENTRAL NERVOUS SYSTEM: No gross deficits EXTREMITIES: Swelling of the left leg - Labs CBC & Chem 7: 06/03/19 06:11 06/03/19 15:04 Labs: Abnormal Lab Results - Last 24 Hours (Table) 09/06/03/19 06/03/19 Range/Units 06:11 06:11 11:56 RBC 2.51 L (4.30-5.90) m/uL Hgb 7.8 L (13.0-17.5) gm/dL Hct 22.4 L (39.0-53.0) % RDW 15.9 H (11.5-15.5) % Plt Count 100 L (150-450) k/uL ABG pH 7.56 H* (7.35-7.45) ABG pCO2 22 L (35-45) mmHg ABG pO2 171 H (83-108) mmHg ABG HCO3 20 L (21-25) mmol/L ABG O2 Saturation 98.7 H (94-97) % Sodium 134 L (137-145) mmol/L Potassium 2.8 L (3.5-5.1) mmol/L Carbon Dioxide 19 L (22-30) mmol/L BUN 86 H (9-20) mg/dL Creatinine 3.98 H (0.66-1.25) mg/dL Glucose 102 H (74-99) mg/dL Calcium 7.1 L (8.4-10.2) mg/dL Phosphorus 8.0 H (2.5-4.5) mg/dL 06/03/19 Range/Units 15:04 RBC (4.30-5.90) m/uL Hgb (13.0-17.5) gm/dL Hct (39.0-53.0) % RDW (11.5-15.5) % Plt Count (150-450) k/uL ABG pH (7.35-7.45) ABG pCO2 (35-45) mmHg ABG pO2 (83-108) mmHg ABG HCO3 (21-25) mmol/L ABG O2 Saturation (94-97) % Sodium (137-145) mmol/L Potassium 3.2 L (3.5-5.1) mmol/L Carbon Dioxide (22-30) mmol/L BUN (9-20) mg/dL Creatinine (0.66-1.25) mg/dL Glucose (74-99) mg/dL Calcium (8.4-10.2) mg/dL Phosphorus (2.5-4.5) mg/dL Microbiology - Last 24 Hours (Table) 06/02/19 13:15 Urine Culture - Final Urine,Catheterized Assessment and Plan (1) Staphylococcus aureus bacteremia Current Visit: Yes Status: Acute Code(s): R78.81 - BACTEREMIA SNOMED Code(s): 033861877 (2) Cardiomyopathy Current Visit: Yes Status: Acute Code(s): I42.9 - CARDIOMYOPATHY, UNSPECIFIED SNOMED Code(s): 23928256 (3) Congestive heart failure Current Visit: Yes Status: Acute Code(s): I50.9 - HEART FAILURE, UNSPECIFIED SNOMED Code(s): 26480708 (4) Pleural effusion Current Visit: Yes Status: Acute Code(s): J90 - PLEURAL EFFUSION, NOT ELSEWHERE CLASSIFIED SNOMED Code(s): 74591740 (5) Pneumonia Current Visit: Yes Status: Acute Code(s): J18.9 - PNEUMONIA, UNSPECIFIED ORGANISM SNOMED Code(s): 959958174 (6) Sepsis Current Visit: Yes Status: Acute Code(s): A41.9 - SEPSIS, UNSPECIFIED ORGANISM SNOMED Code(s): 09855537 Plan: Patient continues to do poorly. His creatinine is going up. Urine output seemed to be somewhat better. It continues to be IV Lasix and dobutamine drips along with antibiotic antibiotics. Prognosis is poor
[2019-06-03] MEDS: CHOLESTYRAMINE (WITH SUGAR) 4 GM PACKET PO SCH ×2 (17:57→19:30)
[2019-06-03] MEDS: NYSTATIN 100,000 UNIT/ML SUSP 500,000 UNIT/5 ML CUP PO SCH ×2 (17:57→20:03)
[2019-06-03] MEDS: SODIUM CHLORIDE 0.9% 1,000 ML IV SCH (17:58)
--- NOTE | 2019-06-03 18:52 | PN ---
PROGRESS NOTE DATE OF SERVICE: 06/03/2019. REASON FOR FOLLOWUP: MSSA bacteremia secondary to mitral valve endocarditis. INTERVAL HISTORY: The patient is currently afebrile. Patient mentioned he is feeling lousy though denies having any chest pain, some shortness of breath. Minimal cough. No nausea, no vomiting. No abdominal pain. Still has some diarrhea, but no worsening output in his fecal management system. PHYSICAL EXAMINATION: Blood pressure 91/54 with a pulse of 90, temperature 98. He is 96% on 6LNC. General description is an elderly male lying in bed in no distress. Respiratory system: Unlabored breathing with decreased breath sounds in the bases. No wheeze. Heart S1, S2. Regular rate and rhythm. ABDOMEN: Soft, no tenderness. LABS: The patient did have further worsening of his kidney function with creatinine up to 3.98, BUN of 86, hemoglobin 7.1, white count 6.7. Blood culture has been negative. Urine is negative. DIAGNOSTIC IMPRESSION AND PLAN: Patient with MSSA bacteremia secondary to mitral valve endocarditis in this patient who did have evidence of worsening renal failure. Nephrology is following the patient. Patient blood culture has been negative. To continue with nafcillin. We will monitor his clinical course closely. Multiple family members at the bedside. Their questions were answered. MMODL / IJN: [id number] / IRENE
--- NOTE | 2019-06-03 19:07 | PN ---
PROGRESS NOTE The patient is seen for followup for acute kidney injury. The patient has been started on dobutamine drip and Lasix drip. His urine output is slightly better, although overall he still remains quite weak. He has not been eating. Code status is currently no code, no CPR or intubation. The patient is also not a good candidate for renal replacement therapy in case his renal function worsens or volume status continues to worsen. PHYSICAL EXAMINATION: On examination today, blood pressure 91/54, heart rate 98 per minute. He is afebrile. Examination of the heart S1, S2. Examination of the lungs, bilateral breath sounds are heard. Abdomen is soft, nontender. Examination lower extremities shows edema 2+ bilaterally. LABS: Show hemoglobin 7.8, sodium of 134, potassium 2.8, BUN 86, serum creatinine 3.98. ASSESSMENT: 1. Acute kidney injury, acute tubular necrosis and cardiorenal. Currently maintained on dobutamine drip and Lasix drip which we will continue. 2. Volume overload. Continue with the Lasix drip. The patient is not a good candidate for dialysis. 3. Mitral valve endocarditis, maintained on nafcillin. 4. Cardiomyopathy, ejection fraction of about 30%. PLAN: Can continue with the dobutamine drip and Lasix drip. Patient is not a candidate for renal replacement therapy given his ongoing hypotension. MMODL / IJN: [id number] /
[2019-06-03] MEDS: ATORVASTATIN 20 MG TAB PO SCH (20:02)
[2019-06-03] MEDS: MONTELUKAST 10 MG TAB PO SCH (20:02)
[2019-06-03] MEDS: SERTRALINE 50 MG TAB PO SCH (20:03)
[2019-06-03] MEDS: HYDROCORTISONE SUCCINATE 100 MG/2 ML VIAL IV SCH (23:11)
[2019-06-04] MEDS: POTASSIUM CHLORIDE 20 MEQ in WATER FOR INJECTION 1 100ML.BAG IVPB SCH ×3 (00:16→04:23)
[2019-06-04] MEDS: FUROSEMIDE 100 MG in SODIUM CHLORIDE 0.9% 90 ML IV SCH ×3 (00:51→19:32)
[2019-06-04] MEDS: NAFCILLIN 2 GM in DEXTROSE 5% IN WATER 100 ML IVPB SCH ×10 (04:23→20:40)
[2019-06-04 05:20] LABS: Anisocytosis Slight; HCT 21.1 % (39.0-53.0); Hypochromasia Slight; MCH 29.2 pg (25.0-35.0); MCHC 32.7 g/dL (31.0-37.0); MCV 89.1 fL (80.0-100.0); Mean Platelet Volume 7.7; Platelet Count 114 k/uL (150-450); RBC 2.36 m/uL (4.30-5.90); RDW 16.2 % (11.5-15.5); WBC 8.1 k/uL (3.8-10.6)
[2019-06-04 05:24] LABS: HGB 6.9 gm/dL (13.0-17.5)
[2019-06-04 05:38] LABS: Calcium 7.4 mg/dL (8.4-10.2); Magnesium 2.2 mg/dL (1.6-2.3); Potassium 3.6 mmol/L (3.5-5.1)
[2019-06-04] MEDS: LEVOTHYROXINE 112 MCG TAB PO SCH (06:03)
[2019-06-04] MEDS: MIDODRINE 5 MG TAB PO SCH ×3 (06:03→16:16)
[2019-06-04] MEDS: DOBUTamine DRIP 500 MG in DEXTROSE/WATER 1 250ML.BAG IV SCH (06:04)
[2019-06-04] MEDS: IPRATROPIUM-ALBUTEROL 3 ML NEB INHALATION SCH ×3 (07:27→20:33)
[2019-06-04] MEDS: SYMBICORT 160-4.5 MCG INHALER INHALATION SCH ×2 (07:27→20:33)
--- NOTE | 2019-06-04 08:10 | XR ---
EXAMINATION TYPE: XR chest 1V portable DATE OF EXAM: 06/04/2019 Comparison: 06/02/2019 Clinical History: 79-year-old male adventitial lung sounds Findings: Left PICC tip at the cavoatrial junction. Median sternotomy wires are post-CABG clips in the mediasti num. Heart upper limits of normal in size. Diffuse interstitial opacities with more confluent opacity right lower lung, increased from prior. Suspect a small right pleural effusion. Impression: Diffuse interstitial opacities now with more confluent right lower lung patchy consolidation. Correla te for possible worsening pulmonary edema. Small right effusion.
[2019-06-04] MEDS: HEPARIN SODIUM,PORCINE 5,000 UNIT/ML 1 ML VIAL SQ SCH ×2 (08:51→16:15)
[2019-06-04] MEDS: HYDROCORTISONE SUCCINATE 100 MG/2 ML VIAL IV SCH ×2 (08:51→16:15)
[2019-06-04] MEDS: ASPIRIN 81 MG PO SCH (08:53)
[2019-06-04] MEDS: HYDROPHILIC CREAM 180 GM TUBE TOPICAL SCH ×2 (08:53→21:53)
[2019-06-04] MEDS: OXYBUTYNIN XL 5 MG TAB.ER.24 PO SCH (08:56)
[2019-06-04] MEDS ORDERED: PANTOPRAZOLE 40 MG/10 ML VIAL IVP SCH (09:00)
[2019-06-04] MEDS: SODIUM BICARBONATE TAB 650 MG TAB PO SCH ×2 (09:00→21:51)
[2019-06-04] MEDS: NOREPINEPHRINE 8 MG in SODIUM CHLORIDE 0.9% 250 ML IV SCH (09:32)
[2019-06-04] MEDS: NYSTATIN 100,000 UNIT/ML SUSP 500,000 UNIT/5 ML CUP PO SCH ×4 (10:31→21:52)
[2019-06-04] MEDS: CHOLESTYRAMINE (WITH SUGAR) 4 GM PACKET PO SCH ×2 (10:31→19:26)
--- NOTE | 2019-06-04 11:24 | PN ---
PROGRESS NOTE Patient is seen for followup for acute kidney injury. Patient has mitral valve endocarditis. His blood cultures remain positive as of 05/26. Blood cultures from 05/27 are negative thus far. Patient is maintained on dobutamine drip and Lasix drip. Urine output is at about 80-100 mL/hour. Overall, patient is awake, comfortable. He is not in any acute distress. Blood pressure is 90/51, heart rate 93 per minute. He is afebrile. Examination of the heart S1, S2. Examination of the lungs, decreased breath sounds at the bases. Abdomen is soft, nontender. Examination of the lower extremities shows edema 2+ bilaterally. ATTENDING AMBULATORY CARE exam cannot be assessed. LABS: Show sodium 133, potassium 3.6, BUN 85, serum creatinine 3.89, hemoglobin 6.9 g/dL. ASSESSMENT: 1. Acute kidney injury, cardiorenal and ATN. Maintained on dobutamine drip and Lasix drip. Serum creatinine staying at about 3.9-3.8 mg/dL. Urine output has improved. I will continue with the dobutamine and Lasix drip for now. 2. Hypokalemia secondary to diuretics, currently being replaced. 3. Anemia with significant drop in hemoglobin to 6.9 g/dL. No active bleeding noted at this time. I will start the patient on Aranesp since he has had renal failure for some time. 4. Metabolic acidosis. Maintained on oral sodium bicarb. 5. Infective endocarditis, methicillin-susceptible Staphylococcus aureus. 6. Congestive heart failure, systolic, acute on top of chronic. 7. Cardiomyopathy, ejection fraction 30%, maintained on dobutamine and Lasix drip. PLAN: Continue with the dobutamine and Lasix for now. Discussed with regarding poor prognosis. Continue to replace potassium. Monitor magnesium as well. MMODL / IJN: [id number] /
--- NOTE | 2019-06-04 12:24 | P.PN ---
Subjective Progress Note Date: 06/04/19 On 06/03/2019, I'm seeing this patient for a follow-up. Unfortunately, this patient is doing poorly. The patient was septic secondary to underlying endocarditis. The patient had an MSSA mitral valve endocarditis there was possible involvement of the aortic valve also. The patient is covered and IV na fcillin. The patient is hemodynamically stable. Repeated cultures of been negative. The patient however is still hemodynamically unstable. Is requiring pressors for blood pressure control. Earlier this morning, was on a combination of dobutamine at 5 mcg/kg per minute and norepinephrine which was running at 0.05 mcg/kg per minute. Norepinephrine was being used for regulating blood pressure as the patient was getting hypotensive while being on dobutamine. Also, the patient was in heart failure. The patient was in pulmonary edema. The patient was started on Lasix therapy at 10 mg an hour and the patient remains in a positive fluid balance. Chest x-ray from yesterday shows pulmonary edema with worsening in interstitial edema compared to the chest x-rays done earlier. As for the renal function, the patient has progressive worsening in acute kidney injury. His creatinine is at 3.9 with a mean of 86. On today's blood work, her blood gases was done as the patient wasn't 100% nonrebreather facemasks. The blood gas showed acute respiratory acidosis with a pH of 7.56 and pO2 of 22 and pO2 171 while being on the FiO2 100%. He is lethargic. He is unable to communicate effectively. Denies having any chest pain. Seems to be shortness of breath even at rest. That fluid balance over the past 24 hours has been +2.1 L and the patient has developed another 1.5 L positive fluid balance over the past 12 hours. The patient family had a lengthy discussion with us and his CODE STATUS is been switched to the EMR DO NOT INTUBATE. On 06/04/2019, the patient is essentially the same condition. Is awake and alert. He follows commands and communicates. Nevertheless, he is still on a Ventimask and attempts to wean him to high flow oxygen and has failure the patient became hypoxic and drop his pulse ox in the low 80s. The patient remains on a combination of dobutamine at 5 mcg/kg per minute and the patient is also on norepinephrine infusion for blood pressure support which is currently running at 0.05 mcg/kg per minute. The patient's urine output is in the order of 30-40 disease an hour. Her net fluid balance is positive for 187 mL over the past 24 hours. The patient had a follow-up chest x-ray today that showed pulmonary edema and heart failure. No fever. No chills. The renal function continues to be impaired with a creatinine is stable at 3.89 with a BUN of 85. The serum bicarb is 19. The patient's blood work showed a hemoglobin of 6.9 which is slightly lower compared to yesterday without evidence of any GI bleeding and the patient will be given a unit of packed RBC. Platelet counts remain low he is stable at 114. Objective - Vital Signs Vital signs: Vital Signs Temp 96.0 F L 06/04/19 08:01 Pulse 98 06/04/19 11:15 Resp 26 H 06/04/19 11:15 BP 72/36 06/04/19 11:15 Pulse Ox 99 06/04/19 11:15 Intake & Output 06/03/19 06/04/19 06/04/19 18:59 06:59 18:59 Intake Total 1582.975 917.833 336.167 Output Total 755 630 455 Balance 827.975 287.833 -118.833 Weight 89.3 kg 94.1 kg Intake: IV 600 460 250 0.9 220 240 100 Furosemide 100 mg In 80 120 50 Sodium Chloride 0.9% 90 ml @ 10 MG/HR 10 mls/hr IV .Q10H LOUIE Rx#: [id number] Nafcillin 2 gm In 300 100 100 Dextrose 5% in Water 100 ml @ 50 mls/hr IVPB Q4HR LOUIE Rx#:[id number] Intake, IV Titration 982.975 457.833 86.167 Amount DOBUTamine DRIP 500 mg In 250 Dextrose/Water 1 250ml. bag @ 5 MCG/KG/MIN 13.275 mls/hr IV .[id number] LOUIE Rx#:[id number] Furosemide 100 mg In 91 96 86.167 Sodium Chloride 0.9% 90 ml @ 10 MG/HR 10 mls/hr IV .Q10H LOUIE Rx#: [id number] Magnesium Sulfate-D5w Pmx 200 1 gm In Dextrose/Water 1 100ml.bag @ 100 mls/hr IVPB Q1H LOUIE Rx#: [id number] Norepinephrine 8 mg In 291.975 11.833 Sodium Chloride 0.9% 250 ml @ 0.05 MCG/KG/MIN 8. 562 mls/hr IV .Q24H LOUIE Rx#:[id number] Potassium Chloride 20 meq 100 In Water For Injection 1 100ml.bag @ 50 mls/hr IVPB ONCE STA Rx#: [id number] Potassium Chloride 20 meq 300 In Water For Injection 1 100ml.bag @ 50 mls/hr IVPB Q2H LOUIE Rx#: [id number] Potassium Chloride 20 meq 100 In Water For Injection 1 100ml.bag @ 50 mls/hr IVPB Q2H LOUIE Rx#: [id number] Output: Urine 755 630 455 Other: Voiding Method Indwelling Catheter Indwelling Catheter Indwelling Catheter # Voids 1 - Exam Gen. appearance fatigued or lethargic and hard to communicate currently on her percent on a facemask with some degree of shortness of breath even at rest. Head exam was generally normal. There was no scleral icterus or corneal arcus. Mucous membranes were moist. Examination of the neck shows positive JVDs. No goiter or neck masses. No neck stiffness pain and oropharyngeal candidiasis or thrush. Lungs sounds are diminished bilaterally along with some bibasilar crackles. The patient is currently on a Ventimask Heart sounds are regular with a systolic ejection murmur grade 2/6 systolic the precordium. No right ventricular heave or thrill. Abdominal exam revealed normal bowel sounds. The abdomen was soft, non-tender, and without masses, organomegaly, or appreciable enlargement of the abdominal aorta. Extremities reveal + edema there is no cyanosis or clubbing. Neurologic exam is nonfocal and the patient has no focal neurological deficits. Pupils are equal and reactive to light. Examination of the skin revealed no evidence of significant rashes, suspicious appearing nevi or other concerning lesions. - Labs CBC & Chem 7: 06/04/19 04:36 06/04/19 08:34 Labs: Abnormal Lab Results - Last 24 Hours (Table) 06/02/19 06/03/19 06/03/19 Range/Units 06:52 15:04 22:30 RBC (4.30-5.90) m/uL Hgb (13.0-17.5) gm/dL Hct (39.0-53.0) % RDW (11.5-15.5) % Plt Count (150-450) k/uL Sodium (137-145) mmol/L Potassium 3.2 L 3.3 L (3.5-5.1) mmol/L Carbon Dioxide (22-30) mmol/L BUN (9-20) mg/dL Creatinine (0.66-1.25) mg/dL Glucose (74-99) mg/dL Calcium (8.4-10.2) mg/dL Crossmatch See Detail 06/04/19 06/04/19 Range/Units 04:36 04:36 RBC 2.36 L (4.30-5.90) m/uL Hgb 6.9 L* (13.0-17.5) gm/dL Hct 21.1 L (39.0-53.0) % RDW 16.2 H (11.5-15.5) % Plt Count 114 L (150-450) k/uL Sodium 133 L (137-145) mmol/L Potassium (3.5-5.1) mmol/L Carbon Dioxide 19 L (22-30) mmol/L BUN 85 H (9-20) mg/dL Creatinine 3.89 H (0.66-1.25) mg/dL Glucose 122 H (74-99) mg/dL Calcium 7.4 L (8.4-10.2) mg/dL Crossmatch Microbiology - Last 24 Hours (Table) 06/02/19 13:15 Urine Culture - Final Urine,Catheterized Assessment and Plan Plan: 1 septic shock secondary to MSSA infective endocarditis. The patient has been on IV nafcillin. The patient's most recent blood cultures of been negative as the patient is being treated with IV antibiotics. Not surgical candidate. He was having persistent bacteremia which is improved. Nevertheless, the patient is still requiring pressors for hemodynamic support. The patient continues to be in pulmonary edema. Hemodynamically stable requiring pressors for blood pressure support. Antibiotics are still unchanged. The subsequent blood cultures of been negative. Most recent blood cultures shown gram-negative negative staph which is probably contaminant. 2 CHF with systolic heart failure and ejection fraction of 30%, with secondary pulmonary edema 3 acute pulmonary edema secondary decompensated heart failure 4 hypotension secondary to above, a combination of cardiogenic and septic shock and the patient is on a combination of antibiotics, and pressors. The pressor requirements have remained unchanged over the past 24 hours. 5 lactic acidosis improved 6 acute kidney injury secondary to prerenal azotemia/ATN. Noted the patient was quite hypotensive related to sepsis and cardiogenic shock. The patient is currently on Lasix drip. 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 Continue IV nafcillin. Continue dobutamine. Continue norepinephrine. Monitor fluid balance. Continued IV Lasix drip. Monitor electrolytes. Monitor renal function. I have elected discussion with the son yesterday and I also talked about other son today. Unfortunately the patient is doing poorly. His condition is still very critical. He carries a very high mortality baseline above-mentioned comorbidities. He remains to be in pulmonary edema based on today's chest x-ray. We can try to use high flow oxygen through [employer] As long as the patient is able to maintain a pulse ox above 90%. unfortunately, he carries a very poor prognosis. We'll continue to follow. DNR/DNI CODE STATUS. Family was understanding
--- NOTE | 2019-06-04 17:29 | P.PN ---
Subjective Progress Note Date: 06/04/19 This is a 79-year-old gentleman who has been in this hospital since 05/21/2019. Patient is admitted with the diagnosis of cardiac myopathy, dyslipidemia, hypothyroidism, coronary artery disease and also with complaints of fever or chills. His blood cultures are positive for staph aureus. A JOSE examination is requested because of bacteremia. Patient was seen by Dr. Gayle and felt that patient was confused yesterday. He would consider and patient is more stable. Patient is alert and doesn't appear to be in acute distress at this time. Still seemed to be somewhat confused. His last blood culture apparently was negative. I will discuss with Dr. Gayle about timing of the JOSE. Meanwhile continue with antibiotic therapy. 05/28/2019: This 79-year-old gentleman is being treated for sepsis, renal failure, cardiomyopathy and probably some element of congestive heart failure. Patient is not feeling well. He complaints of back pain. His also complains of shortness of breath. He is oliguric. His chest x-ray shows a right-sided infiltrates and effusion. Patient's IV fluids were cut back and was given IV Lasix by nephrology, yesterday. ID specialist once JOSE. Discussed with patient and also his and we plan to the JOSE around 11:00. Meanwhile continue with antibiotic therapy. Prognosis is guarded. His creatinine has gone up, and prior patient may need dialysis if the renal function doesn't improve. Prognosis is poor. 05/29/2019: This patient remains relatively stable. No fevers. Patient is eating poorly. Denies any chest pain but complains of shortness of breath. His creatinine is about 2.83. He remains nonoliguric. Patient was seen by cardiac surgery. Yulee to be a high risk candidate for surgery. Advised continued antibiotic therapy. His lungs show diminished breath sounds. Heart sounds are distant and difficult to appreciate any murmurs. We'll continue current medical therapy. Prognosis is guarded. 05/30/2019: The patient is still intensive care unit. He remains frail. Denies any acute distress. No complaints of any chest pain. Patient is not eating well. His blood pressure is maintaining about 100 systolic. Patient is on Midodrin. Patient is nonoliguric. His creatinine has gone up. His Lasix is being held. Patient is seen by cardiac surgeon felt to be at high risk candidate for surgery. Advised continuation of antibiotic therapy. Prognosis is guarded 05/31/2019: Patient condition hasn't changed. He remains weak. He doesn't have any fever. He is not eating well. His creatinine is going up. It appears that patient may be intravascularly volume depleted. Lasix is discontinued. Denies any chest pain or shortness of breath. Remains alert. His blood cultures have been negative. He is getting IV antibiotics. Lungs show diminished breath sounds. Heart is regular. We will continue current medical therapy except discontinue Lasix. 06/02/2019: This patient is alert but weak and frail and seemed to be at times confused. Patient was given IV Lasix and had some urine output, but oliguric. His creatinine has gone up. His hemoglobin dropped. He is not febrile. Overall his clinical condition seemed to be deteriorating. He is getting antibiotics. We will try IV dobutamine. Chest x-ray shows some worsening of CHF. Discussed with family about CODE STATUS. We'll also wait for the input from framing specialist regarding renal failure. Patient may need dialysis. 06/03/2019: This patient continues to do poorly. He remains confused, weak and frail. His urine output is still poor. He is on IV Lasix drip along with a dobutamine. This seemed some improvement in the urine output. Remains relative ly hypotensive. His continues to be on antibiotics. His no CODE STATUS was changed to no intubation. We'll continue current medical therapy. He is being treated for infected endocarditis. Prognosis is poor. 06/04/2019: Patient continues to do poorly. He is alert and able to follow commands. Remains weak and frail. Patient is on IV dobutamine and also IV Lasix along with Levophed. Maintaining a blood pressure below 9200. No fever or chills. Renal function remains poor. Patient is urine output is about 30-40 mL. Creatinine is in the range of 3.8. Seen by both framing specialist and also graphic design specialist. Discussed with family about poor prognosis which they understand. His no CODE STATUS. Continue with current management Objective - Vital Signs Vital signs: Vital Signs Temp 98.1 F 06/04/19 12:00 Pulse 53 L 06/04/19 14:30 Resp 20 06/04/19 14:30 BP 77/61 06/04/19 14:30 Pulse Ox 98 06/04/19 14:30 Intake & Output 06/03/19 06/04/19 06/04/19 18:59 06:59 18:59 Intake Total 1582.975 917.833 526.167 Output Total 755 630 655 Balance 827.975 287.833 -128.833 Weight 89.3 kg 94.1 kg Intake: IV 600 460 440 0.9 220 240 160 Furosemide 100 mg In 80 120 80 Sodium Chloride 0.9% 90 ml @ 10 MG/HR 10 mls/hr IV .Q10H LOUIE Rx#: [id number] Nafcillin 2 gm In 300 100 200 Dextrose 5% in Water 100 ml @ 50 mls/hr IVPB Q4HR LOUIE Rx#:[id number] Intake, IV Titration 982.975 457.833 86.167 Amount DOBUTamine DRIP 500 mg In 250 Dextrose/Water 1 250ml. bag @ 5 MCG/KG/MIN 13.275 mls/hr IV .[id number] LOUIE Rx#:[id number] Furosemide 100 mg In 91 96 86.167 Sodium Chloride 0.9% 90 ml @ 10 MG/HR 10 mls/hr IV .Q10H LOUIE Rx#: [id number] Magnesium Sulfate-D5w Pmx 200 1 gm In Dextrose/Water 1 100ml.bag @ 100 mls/hr IVPB Q1H LOUIE Rx#: [id number] Norepinephrine 8 mg In 291.975 11.833 Sodium Chloride 0.9% 250 ml @ 0.05 MCG/KG/MIN 8. 562 mls/hr IV .Q24H LOUIE Rx#:[id number] Potassium Chloride 20 meq 100 In Water For Injection 1 100ml.bag @ 50 mls/hr IVPB ONCE STA Rx#: [id number] Potassium Chloride 20 meq 300 In Water For Injection 1 100ml.bag @ 50 mls/hr IVPB Q2H LOUIE Rx#: [id number] Potassium Chloride 20 meq 100 In Water For Injection 1 100ml.bag @ 50 mls/hr IVPB Q2H LOUIE Rx#: [id number] Output: Urine 755 945 655 Other: Voiding Method Indwelling Catheter Indwelling Catheter Indwelling Catheter # Voids 1 - Exam GENERAL EXAM: Patient is alert and somewhat confused HEENT: Normocephalic. Normal reaction of pupils, equal size, normal range of extraocular motion. No erythema or exudates in the throat. NECK: No masses, no nuchal rigidity. CHEST: No chest wall deformity. LUNGS: Decreased air entry, especially on the left side HEART: S1 and S2 normal with no audible mumurs or gallops. Regular rhythm, femorals equal on both sides.. ABDOMEN: No hepatosplenomegaly, normal bowel sounds, no guarding or rigidity. SKIN: No rashes CENTRAL NERVOUS SYSTEM: No gross deficits EXTREMITIES: Swelling of the left leg - Labs CBC & Chem 7: 06/04/19 04:36 06/04/19 08:34 Labs: Abnormal Lab Results - Last 24 Hours (Table) 06/02/19 06/03/19 06/04/19 Range/Units 06:52 22:30 04:36 RBC 2.36 L (4.30-5.90) m/uL Hgb 6.9 L* (13.0-17.5) gm/dL Hct 21.1 L (39.0-53.0) % RDW 16.2 H (11.5-15.5) % Plt Count 114 L (150-450) k/uL Sodium (137-145) mmol/L Potassium 3.3 L (3.5-5.1) mmol/L Carbon Dioxide (22-30) mmol/L BUN (9-20) mg/dL Creatinine (0.66-1.25) mg/dL Glucose (74-99) mg/dL Calcium (8.4-10.2) mg/dL Crossmatch See Detail 06/04/19 Range/Units 04:36 RBC (4.30-5.90) m/uL Hgb (13.0-17.5) gm/dL Hct (39.0-53.0) % RDW (11.5-15.5) % Plt Count (150-450) k/uL Sodium 133 L (137-145) mmol/L Potassium (3.5-5.1) mmol/L Carbon Dioxide 19 L (22-30) mmol/L BUN 85 H (9-20) mg/dL Creatinine 3.89 H (0.66-1.25) mg/dL Glucose 122 H (74-99) mg/dL Calcium 7.4 L (8.4-10.2) mg/dL Crossmatch Assessment and Plan (1) Staphylococcus aureus bacteremia Current Visit: Yes Status: Acute Code(s): R78.81 - BACTEREMIA SNOMED Code(s): 705277564 (2) Cardiomyopathy Current Visit: Yes Status: Acute Code(s): I42.9 - CARDIOMYOPATHY, UNSPECIFIED SNOMED Code(s): 99184526 (3) Congestive heart failure Current Visit: Yes Status: Acute Code(s): I50.9 - HEART FAILURE, UNSPECIFIED SNOMED Code(s): 27717573 (4) Pleural effusion Current Visit: Yes Status: Acute Code(s): J90 - PLEURAL EFFUSION, NOT ELSEWHERE CLASSIFIED SNOMED Code(s): 21625107 (5) Pneumonia Current Visit: Yes Status: Acute Code(s): J18.9 - PNEUMONIA, UNSPECIFIED ORGANISM SNOMED Code(s): 450960583 (6) Sepsis Current Visit: Yes Status: Acute Code(s): A41.9 - SEPSIS, UNSPECIFIED ORGANISM SNOMED Code(s): 46197856 Plan: Patient is doing poorly. Continue current management. Prognosis is poor. Family is aware
--- NOTE | 2019-06-04 18:33 | PN ---
PROGRESS NOTE DATE OF SERVICE: 06/04/2019. REASON FOR FOLLOWUP: MSSA mitral valve endocarditis. INTERVAL HISTORY: The patient is currently afebrile. The patient has been slightly weak and lethargic. Denies having any chest pain. Occasional cough. No nausea or vomiting. No abdominal pain or worsening diarrhea per the nursing staff. PHYSICAL EXAMINATION: Blood pressure 100/58 with a pulse of 97, temperature 98. He is 99% on 6 L nasal cannula. General description is an elderly male lying in bed in no distress. RESPIRATORY SYSTEM: Unlabored breathing with decreased breath sounds at the base. No wheeze. HEART: S1, S2. Regular rate and rhythm. ABDOMEN: Soft. Mildly distended. No guarding or rigidity. LABS: Hemoglobin 6.0, white count of 8.1 with BUN of 85, creatinine 3.89. DIAGNOSTIC IMPRESSION AND PLAN: Patient with mitral valve endocarditis in this patient whose blood cultures are positive for methicillin-susceptible Staphylococcus aereus. Follow-up blood culture has been negative. Patient is currently covered with nafcillin. However, he continues to have problems with worsening of his kidney function, for which the patient is currently being monitored by Nephrology. Continue with nafcillin and monitor his clinical course closely. MMODL / IJN: [id number] / IRENE
[2019-06-04] MEDS: SODIUM CHLORIDE 0.9% 1,000 ML IV SCH (19:25)
[2019-06-04] MEDS: MONTELUKAST 10 MG TAB PO SCH (21:52)
[2019-06-04] MEDS: ATORVASTATIN 20 MG TAB PO SCH (21:52)
[2019-06-04] MEDS: SERTRALINE 50 MG TAB PO SCH (21:52)
--- NOTE | 2019-06-04 22:21 | P.PN ---
Subjective Progress Note Date: 06/03/19 Principal diagnosis: Septic shock 79-year-old pleasant gentleman came in with the shortness of breath and is being treated for sepsis possible source being pneumonia. Patient to sepsis improved significantly patient is off Levophed patient does have significant pulmonary edema from IV fluids and patient does have congestive heart failure ejection fraction at that to 35% received IV Lasix and this can you IV fluids will closely monitor his blood pressure patient normally has low blood pressure presently on Zosyn at this time. Being followed by multiple consultants andrew galicia infectious disease double backer. 05/23/2019 Patient wishes daily stable patient is receiving IV Lasix because of his pulmonary edema. Patient does have bacteremia with the staph aureus probably th e source of infection rather pneumonia or urinary tract infection patient will be switched to nafcillin discussed with infectious disease. Patient the has blood cultures that are positive second set of blood cultures are positive because of which echocardiogram will be obtained to rule out any endocarditis. Patient had low-grade fever yesterday we'll repeat blood cultures again today. Creatinine improved from 1.48 to 1.16. 05/24/2019 Patient's fevers resolved but blood cell count is improving. But patient remains bacteremic. Echocardiogram did not show any valvular lesions 9 DT astemizole which was replaced I had a lengthy discussion with the patient regarding her overall goals of care patient is agreeable for DO NOT RESUSCITATE but unsure whether he can make his own duration I'll discuss with the family regarding this. Patient prognosis is extremely poor because of possible endo carditis, bladder cancer, systolic heart failure patient is more appropriate for hospice and comfort care same thing was discussed the patient will also discuss with the family. Patient is quite a bit fatigued and he believes he is not in a 10 out of the hospital. 05/25/2019 patient is not doing well patient the blood cultures were positive from will repeat blood cultures tomorrow creatinine started going up patient blood pressure is still unstable patient is back on Levophed is still getting IV fluids patient does have pulmonary edema prognosis is extremely poor, will discuss with the family regarding hospice. Was unable to reach family yesterday 05/26/2019 Patient looks bit better today off levothyroid, patient today appears to able to my dictation because of which I had lengthy discussion with him regarding DO NOT RESUSCITATE patient wants to be full code because of which I do not believe it's reasonable to discuss regarding comfort care and hospice at this time. Although I did discuss with his regarding comfort care and hospice yesterday and patient's wanted to talk to me today in person as patient now wants everything to be done at believe that discussion is inappropriate and the patient will be continued on present treatment. Pulmonology believes patient may have an empyema. Patient most probably has an otitis and will need a JOSE cardiology was consulted for that. Repeat blood cultures will be obtained for today and tomorrow patient can use to have persistent bacteremia his prognosis although remains extremely poor. 05/27/2019 Patient is very lethargic but arousable. Currently on Levophed. Otherwise patient is being continued on antibiotics in the form of nafcillin for MSSA bacteremia. Repeat cultures have been negative so far. No fever no chills. Cardiology is following for possible JOSE to rule out vegetations. Chest x-ray showed persistent right greater than left bibasilar infiltrates/atelectasis and bilateral pleural effusions right greater than left. Patient otherwise saturating well on 4 L nausea cannula oxygen. WBC count improved to 9.4 from 12.7. BUN 74 and creatinine 2.65. Patient does have [place] catheter and fecal m anagement system. C. diff negative. Pt. still wants to be full code. 05/28/2019 Patient is lethargic but awake alert oriented 3 and is able to communicate. Patient had a JOSE done today showed circumferential mobile mass on the left anterior leaflet on the atrial side suggestive of vegetation. There is a sessile mass in the posterior leaflet of the mitral valve is again suggestive of vegetation. I aortic valve vegetation cannot be completely excluded. Patient is being continued on nafcillin. Cultures for the last 24-36 hours have been negative. Chest x-ray showed stable small to medium right effusion with adjacent atelectasis and/or consolidation. Patient was up Levophed this morning were was started back again later today. No fever no chills. WBC 6.9, sodium 131 and creatinine 2.88 05/29/2018 Patient is awake, alert and oriented 3.. Currently off you forwarded. Blood pressure is fairly stable. Patient is being continued on antibiotics in the form of nafcillin for MSSA bacteremia and infected endocarditis. CT surgery course medical management at this time. Patient is high risk for cardiac surgery. Patient is able to sit in the chair comfortably today. Otherwise patient is only completing 25% of his meal. Considering Dobbhoff tube placement. Plan patient has been afebrile. Blood cultures from 05/26 showed coagulase-negative staph. Patient has been afebrile. Creatinine level II.83 today. 05/30/2019 Patient remained in the MICU. Blood pressure is fairly stable with SBP around 100. Currently on Midodrin. Levophed is on hold currently. Patient is comfortable and lying in the bed without any distress. No fever no chills. Otherwise patient does not have much appetite. Currently being continued on nafcillin. PICC line was placed today. Chest x-ray showed slight worsening interstitial edema and IV Lasix 2 doses was ordered. Renal function slightly worsened with creatinine level III.35. Repeat cultures have been negative so far. Patient is being placed on Dobbhoff tube due to poor nutrition. 05/31/2019 Patient is awake alert and oriented but looks very congested. Patient was started on tube feeding via Dobbhoff tube not tolerating very well. Otherwise very minimal oral intake. Blood pressures to in the lower side. Patient was given a dose of albumin followed by IV Lasix. Still having leg swelling and congestion the chest x-ray. Otherwise patient is being continued on antibiotics in the office nafcillin for infected endocarditis. WBC count 6.9. Patient is not a surgical candidate at this time. Nephrology cardiology and pulmonary is following. Prognosis is guarded. 06/01/2019 Patient is awake alert but lethargic and very congested. Chest x-ray showed CHF versus pulmonary edema. Patient was started on IV Lasix as per nephrology recommendations. Patient is being continued on midodrine. Blood pressure is on the lower side with SBP 90s. Otherwise patient is being continued on nafcillin for infected endocarditis. Patient is having worsening leg swelling and edema. No leukocytosis. Nephrology and cardiology is following. Prognosis guarded with this time. 06/02/2019 Patient seems more lethargic and confused today. Patient is still fluid overloaded otherwise. Currently continued on IV Lasix. Also on pressor support with Levophed and dobutamine. Renal function is worsening. Hemoglobin is 6.4). Patient is still hypotensive and required pressor support. And also fluid overloaded. Prognosis poor at this time. Nephrology and cardiology is on board. Currently being continued on antibiotics in the form of nafcillin. 06/03/2090 Patient is confused and lethargic but awake and oriented. Currently on Lasix d rip. Pressor support with norepinephrine and dobutamine. Being continued on Naprosyn for infected endocarditis. Creatinine 3.98, hemoglobin improved with blood transfusion to 7.8 Constitutional: fatigued Cardio vascular: denied any chest pain, palpitations Gastrointestinal denied any nausea vomiting Pulmonary: Does have shortness of breath Neurologic no new focal deficits All inpatient medications were reviewed and appropriate changes in these medications as dictated in the interval history and assessment and plan. Objective - Vital Signs Vital signs: Vital Signs Temp 97.7 F 06/03/19 20:00 Pulse 102 H 06/03/19 21:30 Resp 24 06/03/19 21:30 BP 88/59 06/03/19 21:30 Pulse Ox 99 06/03/19 21:30 Intake & Output 06/03/19 06/03/19 06/04/19 06:59 18:59 06:59 Intake Total 3856.675 4849.975 190 Output Total 635 755 155 Balance 652.053 827.975 35 Weight 89.3 kg 89.3 kg Intake: IV 680 600 190 0.9 260 220 60 Furosemide 100 mg In 120 80 30 Sodium Chloride 0.9% 90 ml @ 10 MG/HR 10 mls/hr IV .Q10H [facility] Rx#: [id number] Nafcillin 2 gm In 300 300 100 Dextrose 5% in Water 100 ml @ 50 mls/hr IVPB Q4HR [facility] Rx#:[id number] Intake, IV Titration 607.053 982.975 Amount DOBUTamine DRIP 500 mg In 263.2 Dextrose/Water 1 250ml. bag @ 5 MCG/KG/MIN 13.275 mls/hr IV .[id number] [facility] Rx#:[id number] Furosemide 100 mg In 176.834 91 Sodium Chloride 0.9% 90 ml @ 10 MG/HR 10 mls/hr IV .Q10H [facility] Rx#: [id number] Magnesium Sulfate-D5w Pmx 200 1 gm In Dextrose/Water 1 100ml.bag @ 100 mls/hr IVPB Q1H [facility] Rx#: [id number] Norepinephrine 8 mg In 167.019 291.975 Sodium Chloride 0.9% 250 ml @ 0.05 MCG/KG/MIN 8. 562 mls/hr IV .Q24H [facility] Rx#:[id number] Potassium Chloride 20 meq 100 In Water For Injection 1 100ml.bag @ 50 mls/hr IVPB ONCE [facility] Rx#: [id number] Potassium Chloride 20 meq 300 In Water For Injection 1 100ml.bag @ 50 mls/hr IVPB Q2H [facility] Rx#: [id number] Output: Urine 635 755 155 Other: Voiding Method Indwelling Catheter Indwelling Catheter - Exam GENERAL: The patient is alert and oriented x3, lethargic and fatigued.. Well developed, well nourished. HEENT: Pupils are round and equally reacting to light. EOMI. No scleral icterus. No conjunctival pallor. Normocephalic, atraumatic. No pharyngeal erythema. No thyromegaly. CARDIOVASCULAR: S1 and S2 present. No murmurs, rubs, or gallops. Does have elevated JVD PULMONARY: Bibasilar diminished air entry. Diffuse rhonchi and coarse breath sounds. no wheezing ABDOMEN: Soft, nontender, nondistended, normoactive bowel sounds. No palpable organomegaly. MUSCULOSKELETAL: No joint swelling or deformity. EXTREMITIES: No cyanosis, clubbing, 2+ pedal edema. NEUROLOGICAL: Gross neurological examination did not reveal any focal deficits. SKIN: No rashes. - Labs CBC & Chem 7: 06/04/19 04:36 06/04/19 08:34 Labs: Abnormal Lab Results - Last 24 Hours (Table) 06/03/19 06/03/19 06/03/19 Range/Units 06:11 06:11 11:56 RBC 2.51 L (4.30-5.90) m/uL Hgb 7.8 L (13.0-17.5) gm/dL Hct 22.4 L (39.0-53.0) % RDW 15.9 H (11.5-15.5) % Plt Count 100 L (150-450) k/uL ABG pH 7.56 H* (7.35-7.45) ABG pCO2 22 L (35-45) mmHg ABG pO2 171 H (83-108) mmHg ABG HCO3 20 L (21-25) mmol/L ABG O2 Saturation 98.7 H (94-97) % Sodium 134 L (137-145) mmol/L Potassium 2.8 L (3.5-5.1) mmol/L Carbon Dioxide 19 L (22-30) mmol/L BUN 86 H (9-20) mg/dL Creatinine 3.98 H (0.66-1.25) mg/dL Glucose 102 H (74-99) mg/dL Calcium 7.1 L (8.4-10.2) mg/dL Phosphorus 8.0 H (2.5-4.5) mg/dL 06/03/19 Range/Units 15:04 RBC (4.30-5.90) m/uL Hgb (13.0-17.5) gm/dL Hct (39.0-53.0) % RDW (11.5-15.5) % Plt Count (150-450) k/uL ABG pH (7.35-7.45) ABG pCO2 (35-45) mmHg ABG pO2 (83-108) mmHg ABG HCO3 (21-25) mmol/L ABG O2 Saturation (94-97) % Sodium (137-145) mmol/L Potassium 3.2 L (3.5-5.1) mmol/L Carbon Dioxide (22-30) mmol/L BUN (9-20) mg/dL Creatinine (0.66-1.25) mg/dL Glucose (74-99) mg/dL Calcium (8.4-10.2) mg/dL Phosphorus (2.5-4.5) mg/dL Microbiology - Last 24 Hours (Table) 06/02/19 13:15 Urine Culture - Final Urine,Catheterized Assessment and Plan Assessment: -Sepsis, septic shock: shock improved. due to to mitral valve vegetation/ infective endocarditis. Status post JOSE on 05/28/2019. Patient is presently on nafcillin, pt. had persistent bacteremia. Patient was on norepinephrine.. Blood cultures have been negative since 05/27/2019 -Acute hypoxic respiratory failure secondary to congestive heart failure exacerbation. -Lactic acidosis secondary to sepsis resolved now. patient is presently receiving Lasix -Acute renal failure secondary to prerenal azotemia and acute tubular necrosis creatinine improved started going up again because of hypotension, sepsis and congestive heart failure -Hypervolemic hyponatremia secondary to congestive heart failure improving with Lasix. -Congestive heart failure chronic systolic dysfunction ejection fraction of 30- 35% with acute exacerbation, patient has ischemic cardiomyopathy -COPD chronic hypercapnic respiratory failure on oxygen at home. -Possibility of bladder cancer bladder cancer, following follows up with urology and a recent TURP which was incomplete and aborted secondary to hypotension -Coronary artery disease with previous CABG patient has recent cardiac cat heterization which did not show any atherosclerotic occlusive disease that need intervention. -Hypertension -Hypothyroidism: Continue with levothyroxine -Benign prostatic hypertrophiy. -DVT prophylaxis with subcutaneous heparin twice a day Time with Patient: Greater than 30
--- NOTE | 2019-06-04 22:24 | P.PN ---
Subjective Progress Note Date: 06/04/19 Principal diagnosis: Septic shock 79-year-old pleasant gentleman came in with the shortness of breath and is being treated for sepsis possible source being pneumonia. Patient to sepsis improved significantly patient is off Levophed patient does have significant pulmonary edema from IV fluids and patient does have congestive heart failure ejection fraction at that to 35% received IV Lasix and this can you IV fluids will closely monitor his blood pressure patient normally has low blood pressure presently on Zosyn at this time. Being followed by multiple consultants andrew galicia infectious disease investor relations manager. 05/23/2019 Patient wishes daily stable patient is receiving IV Lasix because of his pulmonary edema. Patient does have bacteremia with the staph aureus probably th e source of infection rather pneumonia or urinary tract infection patient will be switched to nafcillin discussed with infectious disease. Patient the has blood cultures that are positive second set of blood cultures are positive because of which echocardiogram will be obtained to rule out any endocarditis. Patient had low-grade fever yesterday we'll repeat blood cultures again today. Creatinine improved from 1.48 to 1.16. 05/24/2019 Patient's fevers resolved but blood cell count is improving. But patient remains bacteremic. Echocardiogram did not show any valvular lesions 9 DT astemizole which was replaced I had a lengthy discussion with the patient regarding her overall goals of care patient is agreeable for DO NOT RESUSCITATE but unsure whether he can make his own duration I'll discuss with the family regarding this. Patient prognosis is extremely poor because of possible endo carditis, bladder cancer, systolic heart failure patient is more appropriate for hospice and comfort care same thing was discussed the patient will also discuss with the family. Patient is quite a bit fatigued and he believes he is not in a 10 out of the hospital. 05/25/2019 patient is not doing well patient the blood cultures were positive from will repeat blood cultures tomorrow creatinine started going up patient blood pressure is still unstable patient is back on Levophed is still getting IV fluids patient does have pulmonary edema prognosis is extremely poor, will discuss with the family regarding hospice. Was unable to reach family yesterday 05/26/2019 Patient looks bit better today off levothyroid, patient today appears to able to my dictation because of which I had lengthy discussion with him regarding DO NOT RESUSCITATE patient wants to be full code because of which I do not believe it's reasonable to discuss regarding comfort care and hospice at this time. Although I did discuss with his regarding comfort care and hospice yesterday and patient's wanted to talk to me today in person as patient now wants everything to be done at believe that discussion is inappropriate and the patient will be continued on present treatment. Pulmonology believes patient may have an empyema. Patient most probably has an otitis and will need a JOSE cardiology was consulted for that. Repeat blood cultures will be obtained for today and tomorrow patient can use to have persistent bacteremia his prognosis although remains extremely poor. 05/27/2019 Patient is very lethargic but arousable. Currently on Levophed. Otherwise patient is being continued on antibiotics in the form of nafcillin for MSSA bacteremia. Repeat cultures have been negative so far. No fever no chills. Cardiology is following for possible JOSE to rule out vegetations. Chest x-ray showed persistent right greater than left bibasilar infiltrates/atelectasis and bilateral pleural effusions right greater than left. Patient otherwise saturating well on 4 L nausea cannula oxygen. WBC count improved to 9.4 from 12.7. BUN 74 and creatinine 2.65. Patient does have [place] catheter and fecal m anagement system. C. diff negative. Pt. still wants to be full code. 05/28/2019 Patient is lethargic but awake alert oriented 3 and is able to communicate. Patient had a JOSE done today showed circumferential mobile mass on the left anterior leaflet on the atrial side suggestive of vegetation. There is a sessile mass in the posterior leaflet of the mitral valve is again suggestive of vegetation. I aortic valve vegetation cannot be completely excluded. Patient is being continued on nafcillin. Cultures for the last 24-36 hours have been negative. Chest x-ray showed stable small to medium right effusion with adjacent atelectasis and/or consolidation. Patient was up Levophed this morning were was started back again later today. No fever no chills. WBC 6.9, sodium 131 and creatinine 2.88 05/29/2018 Patient is awake, alert and oriented 3.. Currently off you forwarded. Blood pressure is fairly stable. Patient is being continued on antibiotics in the form of nafcillin for MSSA bacteremia and infected endocarditis. CT surgery course medical management at this time. Patient is high risk for cardiac surgery. Patient is able to sit in the chair comfortably today. Otherwise patient is only completing 25% of his meal. Considering Dobbhoff tube placement. Plan patient has been afebrile. Blood cultures from 05/26 showed coagulase-negative staph. Patient has been afebrile. Creatinine level II.83 today. 05/30/2019 Patient remained in the MICU. Blood pressure is fairly stable with SBP around 100. Currently on Midodrin. Levophed is on hold currently. Patient is comfortable and lying in the bed without any distress. No fever no chills. Otherwise patient does not have much appetite. Currently being continued on nafcillin. PICC line was placed today. Chest x-ray showed slight worsening interstitial edema and IV Lasix 2 doses was ordered. Renal function slightly worsened with creatinine level III.35. Repeat cultures have been negative so far. Patient is being placed on Dobbhoff tube due to poor nutrition. 05/31/2019 Patient is awake alert and oriented but looks very congested. Patient was started on tube feeding via Dobbhoff tube not tolerating very well. Otherwise very minimal oral intake. Blood pressures to in the lower side. Patient was given a dose of albumin followed by IV Lasix. Still having leg swelling and congestion the chest x-ray. Otherwise patient is being continued on antibiotics in the office nafcillin for infected endocarditis. WBC count 6.9. Patient is not a surgical candidate at this time. Nephrology cardiology and pulmonary is following. Prognosis is guarded. 06/01/2019 Patient is awake alert but lethargic and very congested. Chest x-ray showed CHF versus pulmonary edema. Patient was started on IV Lasix as per nephrology recommendations. Patient is being continued on midodrine. Blood pressure is on the lower side with SBP 90s. Otherwise patient is being continued on nafcillin for infected endocarditis. Patient is having worsening leg swelling and edema. No leukocytosis. Nephrology and cardiology is following. Prognosis guarded with this time. 06/02/2019 Patient seems more lethargic and confused today. Patient is still fluid overloaded otherwise. Currently continued on IV Lasix. Also on pressor support with Levophed and dobutamine. Renal function is worsening. Hemoglobin is 6.4). Patient is still hypotensive and required pressor support. And also fluid overloaded. Prognosis poor at this time. Nephrology and cardiology is on board. Currently being continued on antibiotics in the form of nafcillin. 06/03/2019 Patient is confused and lethargic but awake and oriented. Currently on Lasix d rip. Pressor support with norepinephrine and dobutamine. Being continued on Naprosyn for infected endocarditis. Creatinine 3.98, hemoglobin improved with blood transfusion to 7.8 06/04/2019 Patient is currently lying in the bed. Lethargic but awake alert. Continued on dopamine and norepinephrine. Continued on Lasix drip. Chest x-ray showed pulmonary edema and heart failure. Renal function remain the same at 3.98. Hemoglobin level again dropped down to 6.9 today. No fever no chills. Continued antibiotics in the form of nafcillin. Nephrology and pulmonary is following. Constitutional: fatigued Cardio vascular: denied any chest pain, palpitations Gastrointestinal denied any nausea vomiting Pulmonary: Does have shortness of breath Neurologic no new focal deficits All inpatient medications were reviewed and appropriate changes in these medications as dictated in the interval history and assessment and plan. Objective - Vital Signs Vital signs: Vital Signs Temp 96 F L 06/04/19 20:00 Pulse 95 06/04/19 20:53 Resp 21 06/04/19 20:00 BP 91/65 06/04/19 20:00 Pulse Ox 100 06/04/19 20:36 Intake & Output 06/04/19 06/04/19 06/05/19 06:59 18:59 06:59 Intake Total 917.833 796.167 300 Output Total 630 975 350 Balance 287.833 -178.833 -50 Weight 94.1 kg Intake: IV 460 660 200 0.9 240 240 80 Furosemide 100 mg In 120 120 20 Sodium Chloride 0.9% 90 ml @ 10 MG/HR 10 mls/hr IV .Q10H LOUIE Rx#: [id number] Nafcillin 2 gm In 100 300 100 Dextrose 5% in Water 100 ml @ 50 mls/hr IVPB Q4HR LOUIE Rx#:[id number] Intake, IV Titration 457.833 86.167 100 Amount DOBUTamine DRIP 500 mg In 250 Dextrose/Water 1 250ml. bag @ 5 MCG/KG/MIN 13.275 mls/hr IV .[id number] LOUIE Rx#:[id number] Furosemide 100 mg In 96 86.167 100 Sodium Chloride 0.9% 90 ml @ 10 MG/HR 10 mls/hr IV .Q10H LOUIE Rx#: [id number] Norepinephrine 8 mg In 11.833 Sodium Chloride 0.9% 250 ml @ 0.05 MCG/KG/MIN 8. 562 mls/hr IV .Q24H LOUIE Rx#:[id number] Potassium Chloride 20 meq 100 In Water For Injection 1 100ml.bag @ 50 mls/hr IVPB Q2H LOUIE Rx#: [id number] Oral 50 Output: Urine 630 875 350 Stool 100 Other: Voiding Method Indwelling Catheter Indwelling Catheter Indwelling Catheter # Voids 1 - Exam GENERAL: The patient is alert and oriented x3, lethargic and fatigued.. Well developed, well nourished. HEENT: Pupils are round and equally reacting to light. EOMI. No scleral icterus. No conjunctival pallor. Normocephalic, atraumatic. No pharyngeal erythema. No thyromegaly. CARDIOVASCULAR: S1 and S2 present. No murmurs, rubs, or gallops. Does have elevated JVD PULMONARY: Bibasilar diminished air entry. Diffuse rhonchi and coarse breath sounds. no wheezing ABDOMEN: Soft, nontender, nondistended, normoactive bowel sounds. No palpable organomegaly. MUSCULOSKELETAL: No joint swelling or deformity. EXTREMITIES: No cyanosis, clubbing, 2+ pedal edema. NEUROLOGICAL: Gross neurological examination did not reveal any focal deficits. SKIN: No rashes. - Labs CBC & Chem 7: 06/04/19 04:36 06/04/19 08:34 Labs: Abnormal Lab Results - Last 24 Hours (Table) 06/02/19 06/03/19 06/04/19 Range/Units 06:52 22:30 04:36 RBC 2.36 L (4.30-5.90) m/uL Hgb 6.9 L* (13.0-17.5) gm/dL Hct 21.1 L (39.0-53.0) % RDW 16.2 H (11.5-15.5) % Plt Count 114 L (150-450) k/uL Sodium (137-145) mmol/L Potassium 3.3 L (3.5-5.1) mmol/L Carbon Dioxide (22-30) mmol/L BUN (9-20) mg/dL Creatinine (0.66-1.25) mg/dL Glucose (74-99) mg/dL Calcium (8.4-10.2) mg/dL Crossmatch See Detail 06/04/19 Range/Units 04:36 RBC (4.30-5.90) m/uL Hgb (13.0-17.5) gm/dL Hct (39.0-53.0) % RDW (11.5-15.5) % Plt Count (150-450) k/uL Sodium 133 L (137-145) mmol/L Potassium (3.5-5.1) mmol/L Carbon Dioxide 19 L (22-30) mmol/L BUN 85 H (9-20) mg/dL Creatinine 3.89 H (0.66-1.25) mg/dL Glucose 122 H (74-99) mg/dL Calcium 7.4 L (8.4-10.2) mg/dL Crossmatch Assessment and Plan Assessment: -Sepsis, septic shock: shock improved. due to to mitral valve vegetation/ infective endocarditis. Status post JOSE on 05/28/2019. Patient is presently on nafcillin, pt. had persistent bacteremia. Patient was on norepinephrine.. Blood cultures have been negative since 05/27/2019 -Acute hypoxic respiratory failure secondary to congestive heart failure exacerbation. -Lactic acidosis secondary to sepsis resolved now. patient is presently receiving Lasix -Acute renal failure secondary to prerenal azotemia and acute tubular necrosis creatinine improved started going up again because of hypotension, sepsis and congestive heart failure -Hypervolemic hyponatremia secondary to congestive heart failure improving with Lasix. -Congestive heart failure chronic systolic dysfunction ejection fraction of 30- 35% with acute exacerbation, patient has ischemic cardiomyopathy -COPD chronic hypercapnic respiratory failure on oxygen at home. -Possibility of bladder cancer bladder cancer, following follows up with urology and a recent TURP which was incomplete and aborted secondary to hypotension -Coronary artery disease with previous CABG patient has recent cardiac catheterization which did not show any atherosclerotic occlusive disease that need intervention. -Hypertension -Hypothyroidism: Continue with levothyroxine -Benign prostatic hypertrophiy. -DVT prophylaxis with subcutaneous heparin twice a day Time with Patient: Greater than 30
[2019-06-05] MEDS: NAFCILLIN 2 GM in DEXTROSE 5% IN WATER 100 ML IVPB SCH ×12 (00:18→20:58)
[2019-06-05] MEDS: NOREPINEPHRINE 8 MG in SODIUM CHLORIDE 0.9% 250 ML IV SCH ×2 (00:21→23:40)
[2019-06-05] MEDS: DOBUTamine DRIP 500 MG in DEXTROSE/WATER 1 250ML.BAG IV SCH ×2 (00:52→19:14)
[2019-06-05] MEDS: HYDROCORTISONE SUCCINATE 100 MG/2 ML VIAL IV SCH ×3 (00:52→16:11)
[2019-06-05] MEDS: HEPARIN SODIUM,PORCINE 5,000 UNIT/ML 1 ML VIAL SQ SCH ×3 (00:52→16:11)
[2019-06-05] MEDS: FUROSEMIDE 100 MG in SODIUM CHLORIDE 0.9% 90 ML IV SCH (05:42)
[2019-06-05 05:52] LABS: Anisocytosis Slight; Hypochromasia Moderate; MCH 29.5 pg (25.0-35.0); MCHC 32.7 g/dL (31.0-37.0); MCV 90.4 fL (80.0-100.0); Platelet Count 100 k/uL (150-450); Poikilocytosis Slight; RBC 2.14 m/uL (4.30-5.90); WBC 8.9 k/uL (3.8-10.6)
[2019-06-05 05:55] LABS: HGB 6.3 gm/dL (13.0-17.5)
[2019-06-05 05:56] LABS: HCT 19.3 % (39.0-53.0)
[2019-06-05 06:09] LABS: Calcium 7.2 mg/dL (8.4-10.2); Potassium 3.4 mmol/L (3.5-5.1)
[2019-06-05] MEDS: LEVOTHYROXINE 112 MCG TAB PO SCH (06:20)
[2019-06-05] MEDS: MIDODRINE 5 MG TAB PO SCH ×3 (06:20→16:10)
[2019-06-05] MEDS: IPRATROPIUM-ALBUTEROL 3 ML NEB INHALATION SCH ×3 (07:23→19:20)
[2019-06-05] MEDS: SYMBICORT 160-4.5 MCG INHALER INHALATION SCH ×2 (07:24→19:18)
[2019-06-05] MEDS: SODIUM BICARBONATE TAB 650 MG TAB PO SCH ×2 (08:44→20:58)
[2019-06-05] MEDS: PANTOPRAZOLE 40 MG TABLET PO SCH (08:44)
[2019-06-05] MEDS: ASPIRIN 81 MG PO SCH (08:45)
--- NOTE | 2019-06-05 09:29 | P.PN ---
Subjective Progress Note Date: 06/05/19 This is a 79-year-old gentleman who has been in this hospital since 05/21/2019. Patient is admitted with the diagnosis of cardiac myopathy, dyslipidemia, hypothyroidism, coronary artery disease and also with complaints of fever or chills. His blood cultures are positive for staph aureus. A JOSE examination is requested because of bacteremia. Patient was seen by Dr. Gayle and felt that patient was confused yesterday. He would consider and patient is more stable. Patient is alert and doesn't appear to be in acute distress at this time. Still seemed to be somewhat confused. His last blood culture apparently was negative. I will discuss with Dr. Gayle about timing of the JOSE. Meanwhile continue with antibiotic therapy. 05/28/2019: This 79-year-old gentleman is being treated for sepsis, renal failure, cardiomyopathy and probably some element of congestive heart failure. Patient is not feeling well. He complaints of back pain. His also complains of shortness of breath. He is oliguric. His chest x-ray shows a right-sided infiltrates and effusion. Patient's IV fluids were cut back and was given IV Lasix by nephrology, yesterday. ID specialist once JOSE. Discussed with patient and also his and we plan to the JOSE around 11:00. Meanwhile continue with antibiotic therapy. Prognosis is guarded. His creatinine has gone up, and prior patient may need dialysis if the renal function doesn't improve. Prognosis is poor. 05/29/2019: This patient remains relatively stable. No fevers. Patient is eating poorly. Denies any chest pain but complains of shortness of breath. His creatinine is about 2.83. He remains nonoliguric. Patient was seen by cardiac surgery. [place] to be a high risk candidate for surgery. Advised continued antibiotic therapy. His lungs show diminished breath sounds. Heart sounds are distant and difficult to appreciate any murmurs. We'll continue current medical therapy. Prognosis is guarded. 05/30/2019: The patient is still intensive care unit. He remains frail. Denies any acute distress. No complaints of any chest pain. Patient is not eating well. His blood pressure is maintaining about 100 systolic. Patient is on Midodrin. Patient is nonoliguric. His creatinine has gone up. His Lasix is being held. Patient is seen by cardiac surgeon felt to be at high risk candidate for surgery. Advised continuation of antibiotic therapy. Prognosis is guarded 05/31/2019: Patient condition hasn't changed. He remains weak. He doesn't have any fever. He is not eating well. His creatinine is going up. It appears that patient may be intravascularly volume depleted. Lasix is discontinued. Denies any chest pain or shortness of breath. Remains alert. His blood cultures have been negative. He is getting IV antibiotics. Lungs show diminished breath sounds. Heart is regular. We will continue current medical therapy except discontinue Lasix. 06/02/2019: This patient is alert but weak and frail and seemed to be at times confused. Patient was given IV Lasix and had some urine output, but oliguric. His creatinine has gone up. His hemoglobin dropped. He is not febrile. Overall his clinical condition seemed to be deteriorating. He is getting antibiotics. We will try IV dobutamine. Chest x-ray shows some worsening of CHF. Discussed with family about CODE STATUS. We'll also wait for the input from manager proposal regarding renal failure. Patient may need dialysis. 06/03/2019: This patient continues to do poorly. He remains confused, weak and frail. His urine output is still poor. He is on IV Lasix drip along with a dobutamine. This seemed some improvement in the urine output. Remains relative ly hypotensive. His continues to be on antibiotics. His no CODE STATUS was changed to no intubation. We'll continue current medical therapy. He is being treated for infected endocarditis. Prognosis is poor. 06/04/2019: Patient continues to do poorly. He is alert and able to follow commands. Remains weak and frail. Patient is on IV dobutamine and also IV Lasix along with Levophed. Maintaining a blood pressure below 9200. No fever or chills. Renal function remains poor. Patient is urine output is about 30-40 mL. Creatinine is in the range of 3.8. Seen by both manager proposal and also hoisting laborer. Discussed with family about poor prognosis which they understand. His no CODE STATUS. Continue with current management. 06/05/2019: Patient is alert but seemed to be confused. Patient's hemoglobin showed a further drop. He is receiving 1 unit of blood transfusion. Irregular urine output is steady at 30-40 mL. His crit oumar remained stable. He maintained sinus rhythm. No fever chills. Overall the patient's condition is stable without much improvement. Prognosis is guarded Objective - Vital Signs Vital signs: Vital Signs Temp 95.9 F L 06/05/19 07:13 Pulse 108 H 06/05/19 07:37 Resp 22 06/05/19 07:13 BP 96/62 06/05/19 07:13 Pulse Ox 97 06/05/19 07:24 Intake & Output 06/04/19 06/05/19 06/05/19 18:59 06:59 18:59 Intake Total 404.410 6686.462 20 Output Total 975 1125 150 Balance -178.833 388.462 -130 Weight 94 kg Intake: IV 660 650 20 0.9 240 240 20 Furosemide 100 mg In 120 110 0 Sodium Chloride 0.9% 90 ml @ 10 MG/HR 10 mls/hr IV .Q10H LOUIE Rx#: [id number] Nafcillin 2 gm In 300 300 Dextrose 5% in Water 100 ml @ 50 mls/hr IVPB Q4HR LOUIE Rx#:[id number] Intake, IV Titration 86.167 863.462 Amount DOBUTamine DRIP 500 mg In 249.57 Dextrose/Water 1 250ml. bag @ 5 MCG/KG/MIN 13.275 mls/hr IV .[id number] LOUIE Rx#:[id number] Furosemide 100 mg In 86.167 200 Sodium Chloride 0.9% 90 ml @ 10 MG/HR 10 mls/hr IV .Q10H LOUIE Rx#: [id number] Norepinephrine 8 mg In 413.892 Sodium Chloride 0.9% 250 ml @ 0.05 MCG/KG/MIN 8. 562 mls/hr IV .Q24H LOUIE Rx#:[id number] Oral 50 Blood Product 0 Rc As-3 Unit 0 [id number] Output: Urine 875 1125 150 Stool 100 Other: Voiding Method Indwelling Catheter Indwelling Catheter # Voids 1 - Exam GENERAL EXAM: Patient is alert and somewhat confused HEENT: Normocephalic. Normal reaction of pupils, equal size, normal range of extraocular motion. No erythema or exudates in the throat. NECK: No masses, no nuchal rigidity. CHEST: No chest wall deformity. LUNGS: Decreased air entry, especially on the left side HEART: S1 and S2 normal with no audible mumurs or gallops. Regular rhythm, femorals equal on both sides.. ABDOMEN: No hepatosplenomegaly, normal bowel sounds, no guarding or rigidity. SKIN: No rashes CENTRAL NERVOUS SYSTEM: No gross deficits EXTREMITIES: Edema present - Labs CBC & Chem 7: 06/05/19 05:17 06/05/19 05:17 Labs: Abnormal Lab Results - Last 24 Hours (Table) 06/02/19 06/05/19 06/05/19 Range/Units 06:52 05:17 05:17 RBC 2.14 L (4.30-5.90) m/uL Hgb 6.3 L* (13.0-17.5) gm/dL Hct 19.3 L* (39.0-53.0) % RDW 18.0 H (11.5-15.5) % Plt Count 100 L (150-450) k/uL Sodium 131 L (137-145) mmol/L Potassium 3.4 L (3.5-5.1) mmol/L Carbon Dioxide 19 L (22-30) mmol/L BUN 85 H (9-20) mg/dL Creatinine 3.74 H (0.66-1.25) mg/dL Glucose 112 H (74-99) mg/dL Calcium 7.2 L (8.4-10.2) mg/dL Crossmatch See Detail Assessment and Plan (1) Staphylococcus aureus bacteremia Current Visit: Yes Status: Acute Code(s): R78.81 - BACTEREMIA SNOMED Code( s): 408068999 (2) Cardiomyopathy Current Visit: Yes Status: Acute Code(s): I42.9 - CARDIOMYOPATHY, UNSPECIFIED SNOMED Code(s): 22994453 (3) Congestive heart failure Current Visit: Yes Status: Acute Code(s): I50.9 - HEART FAILURE, UNSPECIFIED SNOMED Code(s): 29158467 (4) Pleural effusion Current Visit: Yes Status: Acute Code(s): J90 - PLEURAL EFFUSION, NOT ELSEWHERE CLASSIFIED SNOMED Code(s): 97214584 (5) Pneumonia Current Visit: Yes Status: Acute Code(s): J18.9 - PNEUMONIA, UNSPECIFIED ORGANISM SNOMED Code(s): 712749495 (6) Sepsis Current Visit: Yes Status: Acute Code(s): A41.9 - SEPSIS, UNSPECIFIED ORGANISM SNOMED Code(s): 26136886 Plan: Continue current medical therapy with aggressive pressors, dobutamine, IV Lasix and antibiotics. Patient is also receiving blood transfusion. Prognosis is poor
[2019-06-05] MEDS: HYDROPHILIC CREAM 180 GM TUBE TOPICAL SCH ×2 (10:53→21:00)
[2019-06-05] MEDS: OXYBUTYNIN XL 5 MG TAB.ER.24 PO SCH (11:01)
--- NOTE | 2019-06-05 11:44 | PN ---
PROGRESS NOTE The patient is seen for followup for acute kidney injury. Renal function is staying fairly stable. Patient is maintained on dobutamine drip and Lasix drip. His hemoglobin is low at 6.3 g/dL today. Urine output staying at about 50 to 100 mL an hour. Currently patient is getting a unit of packed RBCs. Oral intake remains poor. The patient also has a large aortic aneurysm, which is up to 7 cm now. Overall general condition has not changed much over the past 3 days. PHYSICAL EXAMINATION: On examination, blood pressure 102/59, heart rate 98 per minute. Patient is afebrile. EXAMINATION OF THE HEART: S1 and S2. EXAMINATION OF THE LUNGS: Decreased breath sounds at bases. Abdomen is soft, nontender. Examination of the lower extremities shows edema 2+ bilaterally upper and lower extremities. COOLER WORKER EXAM: Grossly intact. Patient is moving all 4 extremities. LABS: Labs show sodium 131, potassium 3.4, BUN 85, serum creatinine 3.74, hemoglobin 6.3. ASSESSMENT: 1. Acute kidney injury, cardiorenal and component of acute tubular necrosis secondary to hypotension hypoperfusion initially. Renal function fairly stable with creatinine staying at about 3.9 to 3.8 mg/dL. 2. Congestive heart failure, volume overload, maintained on Lasix and dobutamine drip. We can switch the Lasix to Bumex drip for now. 3. Hypokalemia secondary to diuresis. We will replace. 4. Anemia. No active bleeding noted. The patient is being transfused packed RBCs. 5. Bacteremia from endocarditis with blood cultures growing Staphylococcus aureus. Last blood cultures on 05/27 were negative. 6. Urinary tract infection with Klebsiella pneumonia, status post antibiotics. Repeat blood cultures were negative. PLAN: Okay to switch to Bumex drip. Agree with packed RBCs transfusion. Discontinue Lipitor for now and repeat labs in a.m. Overall prognosis remains poor. MMODL / IJN: [id number] /
[2019-06-05] MEDS: CHOLESTYRAMINE (WITH SUGAR) 4 GM PACKET PO SCH ×2 (11:48→19:04)
[2019-06-05] MEDS: NYSTATIN 100,000 UNIT/ML SUSP 500,000 UNIT/5 ML CUP PO SCH ×4 (11:48→21:00)
[2019-06-05] MEDS: POTASSIUM CHLORIDE 20 MEQ in WATER FOR INJECTION 1 100ML.BAG IVPB SCH ×2 (11:58→14:07)
[2019-06-05] MEDS: BUMETANIDE 10 MG in DEXTROSE 5% IN WATER 60 ML IV SCH ×4 (12:27→17:42)
[2019-06-05] MEDS: METOLAZONE 5 MG TAB PO SCH ×2 (12:28→20:59)
--- NOTE | 2019-06-05 15:17 | PN ---
PROGRESS NOTE DATE OF SERVICE: 06/05/2019 REASON FOR FOLLOWUP: MSSA mitral endocarditis. INTERVAL HISTORY: The patient is currently afebrile. The patient seemed to be slightly upset and he says he wants to go home, though denies having any chest pain. Breathing is still labored, but no worsening. No nausea, no vomiting, no abdominal pain, diarrhea has improved. The fecal management system has been discontinued by the nursing staff. PHYSICAL EXAMINATION: Blood pressure 97/57, pulse of 104, temperature 98, he is 97% on 2 L nasal cannula. General description is an elderly male lying in bed in no distress. RESPIRATORY SYSTEM: Unlabored breathing with decreased breath sounds at the bases, no wheeze. HEART: S1, S2. Regular rate and rhythm. ABDOMEN: Soft, no tenderness. LABS: Hemoglobin is 6.8 with white count of 8.9, BUN of 85, creatinine is 3.74. Blood cultures 06/02 and 05/27 have been negative. DIAGNOSTIC IMPRESSION AND PLAN: Patient with MSSA mitral valve endocarditis. Patient's blood cultures from 05/27 as well as 06/02 have been negative. Patient is currently on nafcillin to continue. Already has a PICC line with the plan to continue with the current antibiotics for a total of 6 weeks. Family at the bedside, their questions were answered. MMODL / IJN: [id number] /
--- NOTE | 2019-06-05 16:15 | P.PN ---
Subjective Progress Note Date: 06/05/19 On 06/03/2019, I'm seeing this patient for a follow-up. Unfortunately, this patient is doing poorly. The patient was septic secondary to underlying endocarditis. The patient had an MSSA mitral valve endocarditis there was possible involvement of the aortic valve also. The patient is covered and IV na fcillin. The patient is hemodynamically stable. Repeated cultures of been negative. The patient however is still hemodynamically unstable. Is requiring pressors for blood pressure control. Earlier this morning, was on a combination of dobutamine at 5 mcg/kg per minute and norepinephrine which was running at 0.05 mcg/kg per minute. Norepinephrine was being used for regulating blood pressure as the patient was getting hypotensive while being on dobutamine. Also, the patient was in heart failure. The patient was in pulmonary edema. The patient was started on Lasix therapy at 10 mg an hour and the patient remains in a positive fluid balance. Chest x-ray from yesterday shows pulmonary edema with worsening in interstitial edema compared to the chest x-rays done earlier. As for the renal function, the patient has progressive worsening in acute kidney injury. His creatinine is at 3.9 with a mean of 86. On today's blood work, her blood gases was done as the patient wasn't 100% nonrebreather facemasks. The blood gas showed acute respiratory acidosis with a pH of 7.56 and pO2 of 22 and pO2 171 while being on the FiO2 100%. He is lethargic. He is unable to communicate effectively. Denies having any chest pain. Seems to be shortness of breath even at rest. That fluid balance over the past 24 hours has been +2.1 L and the patient has developed another 1.5 L positive fluid balance over the past 12 hours. The patient family had a lengthy discussion with us and his CODE STATUS is been switched to the EMR DO NOT INTUBATE. On 06/04/2019, the patient is essentially the same condition. Is awake and alert. He follows commands and communicates. Nevertheless, he is still on a Ventimask and attempts to wean him to high flow oxygen and has failure the patient became hypoxic and drop his pulse ox in the low 80s. The patient remains on a combination of dobutamine at 5 mcg/kg per minute and the patient is also on norepinephrine infusion for blood pressure support which is currently running at 0.05 mcg/kg per minute. The patient's urine output is in the order of 30-40 disease an hour. Her net fluid balance is positive for 187 mL over the past 24 hours. The patient had a follow-up chest x-ray today that showed pulmonary edema and heart failure. No fever. No chills. The renal function continues to be impaired with a creatinine is stable at 3.89 with a BUN of 85. The serum bicarb is 19. The patient's blood work showed a hemoglobin of 6.9 which is slightly lower compared to yesterday without evidence of any GI bleeding and the patient will be given a unit of packed RBC. Platelet counts remain low he is stable at 114. On 06/05/2019, the patient has being seen for a follow-up. He is currently on 80s about 2 by nasal cannula. His pulse ox is around 97-98%. He is awake and alert. I do not think he is confused. He is hard of hearing. He can commu nicate. His oral intake is minimal. He is still on Lasix drip for extensive fluid overload and third spacing. The patient is also on norepinephrine for blood pressure support and this is running at a dose of 13 g in conjunction with dobutamine which is running at 5 mcg/kg per minute. The net fluid balance is still positive and the patient is not making much of an improvement in terms of fluid balance which remains quite positive. Meanwhile, the patient's BUN is at 85 with a creatinine of 2.7 which is comparable compared to yesterday. Hemoglobin is up to 6.3 and the patient was receiving a unit of packed RBC. No fever. No chills. No chest pain. No altered mentation. The antibiotic coverage remains in the form of IV nafcillin. Objective - Vital Signs Vital signs: Vital Signs Temp 96.7 F L 06/05/19 12:30 Pulse 98 06/05/19 15:00 Resp 17 06/05/19 15:00 BP 75/48 06/05/19 15:00 Pulse Ox 99 06/05/19 15:00 Intake & Output 06/04/19 06/05/19 06/05/19 18:59 06:59 18:59 Intake Total 975.805 0175.462 980 Output Total 975 1125 645 Balance -178.833 388.462 335 Weight 94 kg 94 kg Intake: IV 660 650 380 0.9 240 240 180 Furosemide 100 mg In 120 110 0 Sodium Chloride 0.9% 90 ml @ 10 MG/HR 10 mls/hr IV .Q10H [facility] Rx#: [id number] Nafcillin 2 gm In 300 300 200 Dextrose 5% in Water 100 ml @ 50 mls/hr IVPB Q4HR [facility] Rx#:[id number] Intake, IV Titration 86.167 863.462 240 Amount Bumetanide 10 mg In 40 Dextrose 5% in Water 60 ml @ 1 MG/HR 10 mls/hr IV .Q10H [facility] Rx#:[id number] DOBUTamine DRIP 500 mg In 249.57 Dextrose/Water 1 250ml. bag @ 5 MCG/KG/MIN 13.275 mls/hr IV .[id number] [facility] Rx#:[id number] Furosemide 100 mg In 86.167 200 Sodium Chloride 0.9% 90 ml @ 10 MG/HR 10 mls/hr IV .Q10H [facility] Rx#: [id number] Norepinephrine 8 mg In 413.892 Sodium Chloride 0.9% 250 ml @ 0.05 MCG/KG/MIN 8. 562 mls/hr IV .Q24H [facility] Rx#:[id number] Potassium Chloride 20 meq 200 In Water For Injection 1 100ml.bag @ 50 mls/hr IVPB Q2H [facility] Rx#: [id number] Oral 50 50 Blood Product 0 310 Rc As-3 Unit 0 310 [id number] Output: Urine 875 1125 645 Stool 100 Other: Voiding Method Indwelling Catheter Indwelling Catheter Indwelling Catheter # Voids 1 - Exam Gen. appearance fatigued or lethargic and hard to communicate currently on oxygen at 8 L per minute nasal cannula Head exam was generally normal. There was no scleral icterus or corneal arcus. Mucous membranes were moist. Examination of the neck shows positive JVDs. No goiter or neck masses. No neck stiffness pain and oropharyngeal candidiasis or thrush. Lungs sounds are diminished bilaterally along with some bibasilar crackles. The patient is currently on a Ventimask Heart sounds are regular with a systolic ejection murmur grade 2/6 systolic the precordium. No right ventricular heave or thrill. Abdominal exam revealed normal bowel sounds. The abdomen was soft, non-tender, and without masses, organomegaly, or appreciable enlargement of the abdominal aorta. Extremities reveal + edema there is no cyanosis or clubbing. The patient has significant amount of edema in lower extremities bilaterally. Neurologic exam is nonfocal and the patient has no focal neurological deficits. Pupils are equal and reactive to light. Examination of the skin revealed no evidence of significant rashes, suspicious appearing nevi or other concerning lesions. - Labs CBC & Chem 7: 06/05/19 05:17 06/05/19 05:17 Labs: Abnormal Lab Results - Last 24 Hours (Table) 06/02/19 06/05/19 06/05/19 Range/Units 06:52 05:17 05:17 RBC 2.14 L (4.30-5.90) m/uL Hgb 6.3 L* (13.0-17.5) gm/dL Hct 19.3 L* (39.0-53.0) % RDW 18.0 H (11.5-15.5) % Plt Count 100 L (150-450) k/uL Sodium 131 L (137-145) mmol/L Potassium 3.4 L (3.5-5.1) mmol/L Carbon Dioxide 19 L (22-30) mmol/L BUN 85 H (9-20) mg/dL Creatinine 3.74 H (0.66-1.25) mg/dL Glucose 112 H (74-99) mg/dL Calcium 7.2 L (8.4-10.2) mg/dL Crossmatch See Detail Assessment and Plan Plan: 1 septic shock secondary to MSSA infective endocarditis. The patient has been on IV nafcillin. Patient is still requiring pressors for hemodynamic support. He has underlying cardiomyopathy addition sepsis which contributing to his lower blood pressure. He is on dobutamine for hemodynamic support. 2 CHF with systolic heart failure and ejection fraction of 30%, with secondary pulmonary edema and bilateral pleural effusions 3 acute hypoxic respiratory failure secondary to acute pulmonary edema secondary decompensated heart failure 4 hypotension secondary to above, a combination of cardiogenic and septic shock and the patient is on a combination of antibiotics, and pressors. The pressor requirements have remained unchanged over the past 24 hours. 5 lactic acidosis improved 6 acute kidney injury secondary to prerenal azotemia/ATN. Noted the patient was quite hypotensive related to sepsis and cardiogenic shock. The patient is currently on Lasix drip. The patient is a positive fluid balance. The renal function remains stable for now. 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 Switch this patient to Bumex 1 mg an hour to concentrate and given less volume while using a more potent diuretic in conjunction with Zaroxolyn. With that the patient Zaroxolyn 5 mg by mouth twice a day. Monitor fluid illness in urine output. Continue nafcillin. Continue the low-fat for hemodynamic support. Continue dobutamine. Encourage increasing oral intake. Stress dose hydrocortisone. Oral Synthroid. Rest of the supportive care will be kept unchanged and the patient will be reevaluated. Waiter/Waitress Room Service on the case. Cardiology is also on the case. Prognosis poor baseline above-mentioned comorbidities.
[2019-06-05] MEDS: SODIUM CHLORIDE 0.9% 1,000 ML IV SCH (19:15)
[2019-06-05] MEDS: MONTELUKAST 10 MG TAB PO SCH (20:58)
[2019-06-05] MEDS: SERTRALINE 50 MG TAB PO SCH (21:00)
[2019-06-06] MEDS: HEPARIN SODIUM,PORCINE 5,000 UNIT/ML 1 ML VIAL SQ SCH ×3 (00:41→16:38)
[2019-06-06] MEDS: HYDROCORTISONE SUCCINATE 100 MG/2 ML VIAL IV SCH ×3 (00:41→16:36)
[2019-06-06] MEDS: NAFCILLIN 2 GM in DEXTROSE 5% IN WATER 100 ML IVPB SCH ×14 (00:42→23:59)
[2019-06-06] MEDS: DOBUTamine DRIP 500 MG in DEXTROSE/WATER 1 250ML.BAG IV SCH ×2 (03:38→09:35)
[2019-06-06] MEDS: BUMETANIDE 10 MG in DEXTROSE 5% IN WATER 60 ML IV SCH ×6 (04:25→17:23)
[2019-06-06 06:09] LABS: Anisocytosis Slight; HCT 22.4 % (39.0-53.0); HGB 7.2 gm/dL (13.0-17.5); MCH 28.2 pg (25.0-35.0); MCHC 32.2 g/dL (31.0-37.0); MCV 87.6 fL (80.0-100.0); Mean Platelet Volume 8.2; Poikilocytosis Slight; RBC 2.56 m/uL (4.30-5.90); RDW 16.6 % (11.5-15.5); WBC 7.6 k/uL (3.8-10.6)
[2019-06-06 06:10] LABS: INR 1.2 (<1.2); Prothrombin Time 12.4 sec (9.0-12.0)
[2019-06-06 06:14] LABS: Calcium 7.3 mg/dL (8.4-10.2)
[2019-06-06] MEDS: MIDODRINE 5 MG TAB PO SCH ×3 (06:36→16:39)
[2019-06-06] MEDS: LEVOTHYROXINE 112 MCG TAB PO SCH (06:36)
[2019-06-06 06:39] LABS: Lymphocytes # (M) 0.68 k/uL (1.0-4.8); Myelocytes # (M) 0.08 k/uL (0); Myelocytes % 1 %; Neutrophils # (M) 6.54 k/uL (1.3-7.7); Neutrophils % (M) 86 %; Nucleated Red Blood Cells 0 /100 WBC (0-0); Platelet Count 80 k/uL (150-450); Total Cells Counted 200
[2019-06-06 06:52] LABS: Potassium 2.6 mmol/L (3.5-5.1)
[2019-06-06] MEDS: SYMBICORT 160-4.5 MCG INHALER INHALATION SCH ×2 (07:34→19:24)
[2019-06-06] MEDS: IPRATROPIUM-ALBUTEROL 3 ML NEB INHALATION SCH ×3 (07:34→19:24)
[2019-06-06] MEDS ORDERED: POTASSIUM CHLORIDE 20 MEQ in WATER FOR INJECTION 1 100ML.BAG IVPB ONE (08:00)
[2019-06-06] MEDS: SODIUM BICARBONATE TAB 650 MG TAB PO SCH ×2 (08:02→21:07)
[2019-06-06] MEDS: ASPIRIN 81 MG PO SCH (08:02)
[2019-06-06] MEDS: PANTOPRAZOLE 40 MG TABLET PO SCH (08:02)
[2019-06-06] MEDS: OXYBUTYNIN XL 5 MG TAB.ER.24 PO SCH (08:02)
[2019-06-06] MEDS: NYSTATIN 100,000 UNIT/ML SUSP 500,000 UNIT/5 ML CUP PO SCH ×4 (08:02→21:07)
[2019-06-06] MEDS: METOLAZONE 5 MG TAB PO SCH ×2 (08:02→21:07)
[2019-06-06] MEDS: HYDROPHILIC CREAM 180 GM TUBE TOPICAL SCH ×2 (08:03→21:07)
--- NOTE | 2019-06-06 09:30 | XR ---
EXAMINATION TYPE: XR chest 1V portable DATE OF EXAM: 06/06/2019 COMPARISON: 06/04/2019 INDICATION: CHF TECHNIQUE: Single frontal view of the chest is obtained. FINDINGS: The heart size is normal. The pulmonary vasculature is prominent. Diffuse increased lung markings are present compatible with diffuse pulmonary edema. This may be wors ening in the left lower lobe but stable elsewhere. Small right pleural effusion is developing. IMPRESSION: 1. Diffuse pulmonary edema slightly worsening over the interval. Continued follow-up is recommended.
[2019-06-06] MEDS: NOREPINEPHRINE 8 MG in SODIUM CHLORIDE 0.9% 250 ML IV SCH ×2 (09:36→17:24)
[2019-06-06] MEDS: SODIUM CHLORIDE 0.9% 1,000 ML IV SCH (09:36)
[2019-06-06] MEDS: CHOLESTYRAMINE (WITH SUGAR) 4 GM PACKET PO SCH ×2 (09:38→17:23)
[2019-06-06] MEDS: POTASSIUM CHLORIDE 20 MEQ in WATER FOR INJECTION 1 100ML.BAG IVPB SCH ×3 (09:42→14:23)
--- NOTE | 2019-06-06 10:00 | P.PN ---
Subjective Progress Note Date: 06/06/19 This is a 79-year-old gentleman who has been in this hospital since 05/21/2019. Patient is admitted with the diagnosis of cardiac myopathy, dyslipidemia, hypothyroidism, coronary artery disease and also with complaints of fever or chills. His blood cultures are positive for staph aureus. A JOSE examination is requested because of bacteremia. Patient was seen by Dr. Gayle and felt that patient was confused yesterday. He would consider and patient is more stable. Patient is alert and doesn't appear to be in acute distress at this time. Still seemed to be somewhat confused. His last blood culture apparently was negative. I will discuss with Dr. Gayle about timing of the JOSE. Meanwhile continue with antibiotic therapy. 05/28/2019: This 79-year-old gentleman is being treated for sepsis, renal failure, cardiomyopathy and probably some element of congestive heart failure. Patient is not feeling well. He complaints of back pain. His also complains of shortness of breath. He is oliguric. His chest x-ray shows a right-sided infiltrates and effusion. Patient's IV fluids were cut back and was given IV Lasix by nephrology, yesterday. ID specialist once JOSE. Discussed with patient and also his and we plan to the JOSE around 11:00. Meanwhile continue with antibiotic therapy. Prognosis is guarded. His creatinine has gone up, and prior patient may need dialysis if the renal function doesn't improve. Prognosis is poor. 05/29/2019: This patient remains relatively stable. No fevers. Patient is eating poorly. Denies any chest pain but complains of shortness of breath. His creatinine is about 2.83. He remains nonoliguric. Patient was seen by cardiac surgery. [place] to be a high risk candidate for surgery. Advised continued antibiotic therapy. His lungs show diminished breath sounds. Heart sounds are distant and difficult to appreciate any murmurs. We'll continue current medical therapy. Prognosis is guarded. 05/30/2019: The patient is still intensive care unit. He remains frail. Denies any acute distress. No complaints of any chest pain. Patient is not eating well. His blood pressure is maintaining about 100 systolic. Patient is on Midodrin. Patient is nonoliguric. His creatinine has gone up. His Lasix is being held. Patient is seen by cardiac surgeon felt to be at high risk candidate for surgery. Advised continuation of antibiotic therapy. Prognosis is guarded 05/31/2019: Patient condition hasn't changed. He remains weak. He doesn't have any fever. He is not eating well. His creatinine is going up. It appears that patient may be intravascularly volume depleted. Lasix is discontinued. Denies any chest pain or shortness of breath. Remains alert. His blood cultures have been negative. He is getting IV antibiotics. Lungs show diminished breath sounds. Heart is regular. We will continue current medical therapy except discontinue Lasix. 06/02/2019: This patient is alert but weak and frail and seemed to be at times confused. Patient was given IV Lasix and had some urine output, but oliguric. His creatinine has gone up. His hemoglobin dropped. He is not febrile. Overall his clinical condition seemed to be deteriorating. He is getting antibiotics. We will try IV dobutamine. Chest x-ray shows some worsening of CHF. Discussed with family about CODE STATUS. We'll also wait for the input from staffing program manager regarding renal failure. Patient may need dialysis. 06/03/2019: This patient continues to do poorly. He remains confused, weak and frail. His urine output is still poor. He is on IV Lasix drip along with a dobutamine. This seemed some improvement in the urine output. Remains relative ly hypotensive. His continues to be on antibiotics. His no CODE STATUS was changed to no intubation. We'll continue current medical therapy. He is being treated for infected endocarditis. Prognosis is poor. 06/04/2019: Patient continues to do poorly. He is alert and able to follow commands. Remains weak and frail. Patient is on IV dobutamine and also IV Lasix along with Levophed. Maintaining a blood pressure below 9200. No fever or chills. Renal function remains poor. Patient is urine output is about 30-40 mL. Creatinine is in the range of 3.8. Seen by both staffing program manager and also gear machinist. Discussed with family about poor prognosis which they understand. His no CODE STATUS. Continue with current management. 06/05/2019: Patient is alert but seemed to be confused. Patient's hemoglobin showed a further drop. He is receiving 1 unit of blood transfusion. Irregular urine output is steady at 30-40 mL. His crit oumar remained stable. He maintained sinus rhythm. No fever chills. Overall the patient's condition is stable without much improvement. Prognosis is guarded. 06/06/2019: This patient's condition hasn't changed much. He is diuresing better. Chest x-ray, however, states was bilateral infiltrates and evidence of pulmonary edema. Patient is in mild to moderate respiratory distress. Doesn't complain of any chest pains. His continues to be IV dobutamine and IV Lasix and also Levophed along with antibiotics. Creatinine is slightly high. Patient di dn't receive blood transfusion and hemoglobin is about 7 g. Prognosis is poor Objective - Vital Signs Vital signs: Vital Signs Temp 97.8 F 06/06/19 08:00 Pulse 98 06/06/19 09:30 Resp 16 06/06/19 09:30 BP 91/63 06/06/19 09:30 Pulse Ox 99 06/06/19 09:30 Intake & Output 06/05/19 06/06/19 06/06/19 18:59 06:59 18:59 Intake Total 1202.5 1168.923 471.838 Output Total 865 2250 575 Balance 337.5 -1081.077 -103.162 Weight 94 kg 90.1 kg Intake: IV 540 540 160 0.9 240 240 60 Furosemide 100 mg In 0 Sodium Chloride 0.9% 90 ml @ 10 MG/HR 10 mls/hr IV .Q10H [facility] Rx#: [id number] Nafcillin 2 gm In 300 300 100 Dextrose 5% in Water 100 ml @ 50 mls/hr IVPB Q4HR [facility] Rx#:[id number] Intake, IV Titration 302.5 628.923 311.838 Amount Bumetanide 10 mg In 102.5 100 51.667 Dextrose 5% in Water 60 ml @ 1 MG/HR 10 mls/hr IV .Q10H [facility] Rx#:[id number] DOBUTamine DRIP 500 mg In 250 78.986 Dextrose/Water 1 250ml. bag @ 5 MCG/KG/MIN 13.275 mls/hr IV .[id number] [facility] Rx#:[id number] Norepinephrine 8 mg In 278.923 81.185 Sodium Chloride 0.9% 250 ml @ 0.05 MCG/KG/MIN 8. 562 mls/hr IV .Q24H [facility] Rx#:[id number] Potassium Chloride 20 meq 100 In Water For Injection 1 100ml.bag @ 50 mls/hr IVPB ONCE ONE Rx#: [id number] Potassium Chloride 20 meq 200 In Water For Injection 1 100ml.bag @ 50 mls/hr IVPB Q2H [facility] Rx#: [id number] Oral 50 Blood Product 310 Rc As-3 Unit 310 [id number] Output: Urine 865 2150 575 Stool 100 Other: Voiding Method Indwelling Catheter Indwelling Catheter Indwelling Catheter - Exam GENERAL EXAM: Patient is alert and somewhat confused HEENT: Normocephalic. Normal reaction of pupils, equal size, normal range of extraocular motion. No erythema or exudates in the throat. NECK: No masses, no nuchal rigidity. CHEST: No chest wall deformity. LUNGS: Decreased air entry, especially on the left side HEART: S1 and S2 normal with no audible mumurs or gallops. Regular rhythm, femorals equal on both sides.. ABDOMEN: No hepatosplenomegaly, normal bowel sounds, no guarding or rigidity. SKIN: No rashes CENTRAL NERVOUS SYSTEM: No gross deficits EXTREMITIES: Edema present - Labs CBC & Chem 7: 06/06/19 05:42 06/06/19 05:42 Labs: Abnormal Lab Results - Last 24 Hours (Table) 06/02/19 06/06/19 06/06/19 Range/Units 06:52 05:42 05:42 RBC 2.56 L (4.30-5.90) m/uL Hgb 7.2 L (13.0-17.5) gm/dL Hct 22.4 L (39.0-53.0) % RDW 16.6 H (11.5-15.5) % Plt Count 80 L (150-450) k/uL Lymphocytes # (Manual) 0.68 L (1.0-4.8) k/uL Myelocytes # (Manual) 0.08 H (0) k/uL PT 12.4 H (9.0-12.0) sec INR 1.2 H (<1.2) Sodium (137-145) mmol/L Potassium (3.5-5.1) mmol/L Chloride (98-107) mmol/L BUN (9-20) mg/dL Creatinine (0.66-1.25) mg/dL Glucose (74-99) mg/dL Calcium (8.4-10.2) mg/dL Crossmatch See Detail 06/06/19 Range/Units 05:42 RBC (4.30-5.90) m/uL Hgb (13.0-17.5) gm/dL Hct (39.0-53.0) % RDW (11.5-15.5) % Plt Count (150-450) k/uL Lymphocytes # (Manual) (1.0-4.8) k/uL Myelocytes # (Manual) (0) k/uL PT (9.0-12.0) sec INR (<1.2) Sodium 134 L (137-145) mmol/L Potassium 2.6 L* (3.5-5.1) mmol/L Chloride 95 L (98-107) mmol/L BUN 82 H (9-20) mg/dL Creatinine 3.92 H (0.66-1.25) mg/dL Glucose 126 H (74-99) mg/dL Calcium 7.3 L (8.4-10.2) mg/dL Crossmatch Assessment and Plan (1) Staphylococcus aureus bacteremia Current Visit: Yes Status: Acute Code(s): R78.81 - BACTEREMIA SNOMED Code(s): 258967491 (2) Cardiomyopathy Current Visit: Yes Status: Acute Code(s): I42.9 - CARDIOMYOPATHY, UNSPECIFIED SNOMED Code(s): 00686730 (3) Congestive heart failure Current Visit: Yes Status: Acute Code(s): I50.9 - HEART FAILURE, UNSPECIFIED SNOMED Code(s): 76490627 (4) Pleural effusion Current Visit: Yes Status: Acute Code(s): J90 - PLEURAL EFFUSION, NOT ELSEWHERE CLASSIFIED SNOMED Code(s): 86486511 (5) Pneumonia Current Visit: Yes Status: Acute Code(s): J18.9 - PNEUMONIA, UNSPECIFIED ORGANISM SNOMED Code(s): 053936886 (6) Sepsis Current Visit: Yes Status: Acute Code(s): A41.9 - SEPSIS, UNSPECIFIED ORGANISM SNOMED Code(s): 82642626 Plan: Continue current medical therapy. Poor prognosis
--- NOTE | 2019-06-06 12:39 | P.PN ---
Subjective Progress Note Date: 06/06/19 Principal diagnosis: Acute septic shock secondary to right lower lobe pneumonia, this is likely healthcare acquired pneumonia and gram-positive bacteremia. MSSA. This is a 79-year-old white male patient of Dr. Wallace, with extensive medical history, was recently hospitalized for acute exacerbation of systolic congestive heart failure with an EF of 30-35%, acute hypoxic failure related to CHF, acute on chronic renal failure. Following his discharge on 05/16/2019 patient went to [facility] for rehab. On 05/20/2019 patient was brought into the hospital for evaluation of worsening shortness of breath, fever chills, increased sputum production. Denied any nausea or vomiting, patient also complained of penile pain, and dysuria. Patient does have a history of COPD on home oxygen at 4 L. Other medical history includes CAD with history of bypass grafting, bladder c ancer, patient follows with Dr. Calvert from urology, hyperlipidemia, previous myocardial infarction, osteoarthritis, sleep apnea on CPAP therapy, prostate disorder, hypothyroidism, chronic back pain, and previous history of smoking. Chest x-ray was completed showing small bilateral pleural effusions, bibasilar atelectasis and diffuse interstitial and hazy opacities with the possibility of interstitial pneumonia, and fluid overload. Lab work was positive for leukocytosis, white blood cell count is 31.3, hemoglobin is 7.4, patient had 23% bandemia, correlation profile was within normal limits, serum sodium was 133, potassium 3.4, chloride was 92, CO2 is 31, BUN was 61, creatinine is 2.42. La ctic acid was 4.8 patient was given 2 L of IV fluids, this morning his lactic acid is 2.8, troponins were positive at 0.173, and 0.121. ProBNP was 66188, urinalysis showed large amount of blood, 1+ protein, large amount of leuk trase, rare white blood cell and rare bacteria, doubt underlying urinary tract infection. Influenza screen was negative. Patient was initially admitted to stepdown floor, this morning his febrile, with a temp of 102.2, patient is tachycardic the heart rate up to 120 BPM, blood pressures are marginal, 99/71, and subsequent one was systolic in the 80s. Patient was given additional liter bolus, broad-spectrum antibiotics were started in the form of Zosyn. Blood cul tures were sent on admission, we will obtain additional set of blood cultures, urinalysis, sputum culture. Patient is being transferred to the intensive care unit. Reevaluated today on 05/22/2019, patient remains in the ICU, I saw him yesterday, and arrange for the transferred to the ICU. During my evaluation, the patient was noted to be septic, he was transferred to the ICU and received a total of 3 L of fluids, and he was placed on a short. This time on norepinephrine for low blood pressure. Patient was on norepinephrine for few hours, today he is hemodynamically stable, feeling a bit better, chest x-ray clearly shows evidence of right lower lobe pneumonia and interstitial edema bilaterally. Hence the patient will be given a dose of Lasix, and his IV fluids will be cut down to 50 mL per hour. Blood cultures are positive for gram-positive cocci, hence vancomycin was added. In the meantime we will continue Zosyn until the final identification and sensitivity noted from the blood cultures. WBC count today is down to 23.8 hemoglobin is 8.6 electrolytes are normal BUN is 53 creatinine is 1.48, improving compared to 2.42 on admission. Troponin was noted to be 0.069. Potassium is 3.5 be corrected as per protocol. Reevaluated today on 05/23/2019, patient remains in the ICU, off norepinephrine, hemodynamically stable, urine output is marginal but improving with diuretics, and he was given a dose of Lasix earlier today. Overall the patient is slightly better compared to his presentation. Chest x-ray continues to showsome component of congestive heart failure, and some component of patchy infiltrates in the right lower lobe. Small pleural effusion is noted right greater than left.WBC count remains elevated at 25.2 hemoglobin is 10.3. Electrodes are normal BUN is improving creatinine is also improving down to 1.16.patient is off norepinephrine today. Troponin level is slightly elevated at 0.069, Patient was reevaluated today on 05/24/2019, remains in the ICU, off norepinephrine, feeling better, breathing easier, however his chest x-ray continues to show some interstitial edema Lasix was given 40 mg IV push times one. Cut down his fluid down to 50 mL per hour. Clinically the patient is feeling better, breathing a lot easier, chest x-ray is still concerning, and his blood pressure remains marginal but he normally runs a low blood pressure. WBC down to 20.9 his electrolytes are normal except for low potassium being corrected. BUN is 48 creatinine 1.18. His blood cultures came back positive for MSSA. Patient is now on nafcillin as per infectious disease on the case. Other antibiotics have been discontinued. Reevaluated today on 05/25/2019, patient remains off norepinephrine, blood pressure remains low marginal. Responds well to IV Lasix given on a daily basis as needed. IV fluids remains at 50 mL per hour. Continues to have positive blood cultures, and a transesophageal echocardiogram should be done by cardiology. His blood cultures remain positive since admission. Patient remains on antibiotics as per infectious disease on the case. Chest x-ray showed right lower lobe consolidation, and possibly a small right-sided pleural effusion. Minimal effusion noted on the left. WBC count is coming down to 15.9 it was quite elevated on admission. It was 20.9 yesterday and a 25.22 days ago. His electrolytes are normal BUN however is up to 59, and creatinine is up to 1.35, we'll continue cautious hydration and hold on diuretics. Patient does have poor LV function and the findings on his renal status could be related to diuretics as well as cardiorenal in nature. Reevaluated today on 05/26/2019, patient is back on norepinephrine today at 0.06 mcg/kg/m. Patient had low blood pressure last night, low urine output, hence he is now back on norepinephrine, and he is receiving IV fluid at 70 mL per hour. Will hold on any diuretics today. Patient continues to have positive blood cultures, initiated a cardiology consultation yesterday, not seen yet by cardiology, patient will definitely require transesophageal echocardiogram to document endocarditis and to explain his persistent positive blood cultures. Ultrasound of the chest did not show enough pleural effusion on the right side to consider safe thoracentesis. Hence no thoracentesis will be done. His transthoracic echocardiogram did show evidence of poor LV function with ejection fraction of 30-35 percent. And hopefully a transesophageal echo could be done tomorrow. Clinically the patient is slightly confused, he is not in any form of respiratory distress. Chest x-ray continues to show air space disease in the right lower lobe and small tiny right-sided pleural effusion. Also there is evidence of mild pulmonary edema. On 05/27/2019 patient seen in follow-up in the intensive care unit. He is lethargic, but easily arousable, denies any acute distress, currently on 4 L of oxygen per nasal cannula, pulse ox of 98%, afebrile, he remains on small dose of levothyroid at 2 mics per minute, and maintenance IV fluids 0.9 normal saline at a rate of 75 ML per hour, Currently on nafcillin for MSSA bacteremia, was also treated with a combination of Zosyn, Levaquin and later with cefepime which have all been discontinued now for evidence of Klebsiella pneumonia in the urine culture. No fever or chills, no signs of respiratory distress, follow-up blood cultures starting on 05/25, 05/26 have been negative. Cardiology is following and will decide on the timing of the JOSE. His chest x-ray has been reviewed showing persistent right greater than left bibasilar infiltrates and/or atelectasis and bilateral pleural effusions right greater than left. Patient is maintaining stable oxygenation, he normally wears 3 L of oxygen at home, he is currently on 4 which can actually be titrated down, today's labs have been reviewed, showing white blood cell count is trending, down to 9.4 on today's labs from 12.7, hemoglobin is 9.1, serum sodium is 131, potassium is 4.0, chloride is 97, CO2 is 20, BUN is 75, creatinine is 2.65. Magaña catheter is in, draining clear urine, ranging 35-50 ML per hour. Patient has a fecal management system as in with liquid output and C. diff was negative. On 05/28/2019 patient seen in follow-up in the intensive care unit, she is resting in bed, appears fatigued, but no acute distress, is on 4 L of oxygen, his pulse ox is 98-100%. Denies any specific complaints, no shortness of breath, no component of chest pain, levo fed has been on hold since 12:00 yesterday on 05/27/2019. Today's labs have been reviewed, showing a white blood cell count is 6.9, hemoglobin of 8.6, sodium of 131, potassium is 3.5, chloride is 97, CO2 is 21, BUN 77, and creatinine is 2.8. Ration is on nafcillin for evidence of Staphylococcus aureus, susceptible to oxacillin. Urine culture on the was positive for Klebsiella pneumonia patient has been treated with Zosyn, Levaquin and later cefepime. No fever or chills, sinus rhythm on the monitor, follow-up cultures are pending, patient has been having daily repeat blood cultures, JOSE is pending sometime today. On 05/29/2019 she seen again in follow-up in the intensive care unit, seems very fatigued and worn out, but no acute distress, he denies any shortness of breath, his lung sounds are clear to auscultation, no rales, no rhonchi, room air pulse ox is 95%, maintenance IV 0.9 normal saline at a rate of 50 ML per hour, patient is receiving daily Lasix IV 40 mg. On today's labs patient's renal profile was noted to be worsening, with BUN up to 76 and creatinine 3.35. Blood cell, 7.6, hemoglobin of 8.4, serum sodium is 132, chloride is 97, CO2 is 21, calcium is 6.7, yesterday we received a call from the dietitian who stated that patient's oral intake has been extremely poor, patient is consuming less than 25% of his meals and he is not consuming any supplementation in the form of ensure. Patient's serum albumin is low at 2.0, he is developing third spacing, gen eralized edema. Yesterday his chest x-ray showed a small to moderate-sized right greater than left pleural effusions. From pulmonary perspective patient is not complaining of any shortness of breath, no cough or congestion, occasional production of clear colored sputum. No fever or chills, follow-up blood cultures positive for coagulase-negative staph, and culture from 05/27/2019 has shown no growth at the 72 hour bonifacio. ID service is following, and patient is being treated with IV antibiotic therapy JOSE was completed showing questionable mobile lesion in the highly calcified aortic valve and a vegetation could not be completely excluded, in addition there was a 1 cm circumferential mobile mass on the anterior leaflet on the atrial side suggestive of vegetation and a mobile circumferential mass on the posterior mitral leaflet suggestive of vegetation. LV function. To be moderately to severely impaired. In view of endocarditis patient was referred to CT surgery for evaluation for possibility of surgical intervention, who has recommended completing 6 weeks of antibiotics, and patient is an extremely high risk for surgical intervention, and medical treatment was recommended at this time. On 05/31/2019 patient seen in follow-up in the intensive care unit, yesterday GI service inserted Dobhoff tube and feedings have been started, with vital HP at a rate of 20 ML per hour, his goal is 80, patient at this point is eating very minimally orally. Appetite is extremely poor. No difficulty breathing, however sounds more congested on today's exam, weak congestive cough, nonproductive. Patient was placed on a couple liters of supplemental oxygen, his pulse ox this morning is 94, hemodynamically stable, his 0.9 normal saline is infusing at a rate of 10 ML per hour, in addition to the tube feedings. Today we did give the patient is a 5% albumin followed by Lasix, apparently the patient is oliguric, he only produced 400 mL in the last 24 hours, if ALLERGIES following, today's labs have been reviewed, showing white blood cell count of 6.9, hemoglobin of 8.2, serum sodium of 1:30, potassium is 4.3, chloride is 97, CO2 17, BUN is 80, and creatinine of 3.47. He is on nafcillin for MSSA bacteremia, and JOSE also revealed a vegetation on his mitral and aortic valves. Patient is not a surgical candidate, IV antibiotics and medical treatment was recommended, overall he has severe generalized weakness, poor appetite, and although there has been no acute events overnight, he is steadily declining. At this time he remains a full code and his overall prognosis is extremely guarded. Extremity Dopplers are negative for DVT On 06/06/2019 patient seen in follow-up in the intensive care unit. More awake and conversant on today's exam, FiO2 down to 6 L, and in his oxygen saturations are around 99-100%, his been afebrile, hemodynamically patient remains vasopressor dependent, we have not been very successful on weaning that down, remains on norepinephrine currently at 15 mics per minute, Bumex drip is at 1 mg per hour, and Zaroxolyn has been added to enhance diuresis, patient is in negative fluid balance, and he has made 3100 mL and urine output, and he is in - 700 mL fluid balance over the last 24 hours. His appetite remains extremely poor, he is only eaten a couple of bites at his meals, he states he has no appetite, but denies any significant shortness of breath, lung sounds are positive for diffuse wheezes, image breath sounds at the bases, chest x-ray has been reviewed showing diffuse pulmonary edema with the possibility of ARDS. Follow-up blood culture showed no growth, urine culture was negative, she remains on nafcillin for MSSA bacteremia and evidence of endocarditis. Yesterday patient received a unit of packed red blood cells for hemoglobin of 6.3, this morning's labs show a hemoglobin of 7.2, with no obvious sign of bleeding. No complaints of fever, no complaint of chills, patient seems to be appropriate. Objective - Vital Signs Vital signs: Vital Signs Temp 97.5 F L 06/06/19 12:00 Pulse 109 H 06/06/19 12:15 Resp 23 06/06/19 12:15 BP 111/78 06/06/19 12:15 Pulse Ox 99 06/06/19 12:15 Intake & Output 06/05/19 06/06/19 06/06/19 18:59 06:59 18:59 Intake Total 1202.5 1168.923 997.034 Output Total 865 2250 1080 Balance 337.5 -1081.077 -82.966 Weight 94 kg 90.1 kg Intake: IV 540 540 300 0.9 240 240 100 Furosemide 100 mg In 0 Sodium Chloride 0.9% 90 ml @ 10 MG/HR 10 mls/hr IV .Q10H LOUIE Rx#: [id number] Nafcillin 2 gm In 300 300 200 Dextrose 5% in Water 100 ml @ 50 mls/hr IVPB Q4HR LOUIE Rx#:[id number] Intake, IV Titration 302.5 628.923 597.034 Amount Bumetanide 10 mg In 102.5 100 51.667 Dextrose 5% in Water 60 ml @ 1 MG/HR 10 mls/hr IV .Q10H LOUIE Rx#:[id number] DOBUTamine DRIP 500 mg In 250 78.986 Dextrose/Water 1 250ml. bag @ 5 MCG/KG/MIN 13.275 mls/hr IV .[id number] LOUIE Rx#:[id number] Norepinephrine 8 mg In 278.923 166.381 Sodium Chloride 0.9% 250 ml @ 0.05 MCG/KG/MIN 8. 562 mls/hr IV .Q24H LOUIE Rx#:[id number] Potassium Chloride 20 meq 300 In Water For Injection 1 100ml.bag @ 50 mls/hr IVPB ONCE ONE Rx#: [id number] Potassium Chloride 20 meq 200 In Water For Injection 1 100ml.bag @ 50 mls/hr IVPB Q2H [facility] Rx#: [id number] Oral 50 100 Blood Product 310 Rc As-3 Unit 310 [id number] Output: Urine 865 2150 1080 Stool 100 Other: Voiding Method Indwelling Catheter Indwelling Catheter Indwelling Catheter - Exam GENERAL EXAM: Awake, more arousable on today's exam, 79-year-old white male, currently on 6L of oxygen with a pulse ox of 99%, no signs of distress HEAD: Normocephalic/atraumatic. EYES: Normal reaction of pupils, equal size. Conjunctiva pink, sclera white. NOSE: Clear with pink turbinates. THROAT: No erythema or exudates. NECK: No masses, no JVD, no thyroid enlargement, no adenopathy. CHEST: No chest wall deformity. Symmetrical expansion. LUNGS: diminished breath sounds bilaterally, diffuse wheezes CVS: Regular rate and rhythm, normal S1 and S2, no gallops, no murmurs, no rubs ABDOMEN: Soft, nontender. No hepatosplenomegaly, normal bowel sounds, no guarding or rigidity. EXTREMITIES: No clubbing, 3+ pedal edema, 2+ lower extremity edema bilaterally no cyanosis, 2+ pulses and upper and lower extremities. MUSCULOSKELETAL: Muscle strength and tone normal. SPINE: No scoliosis or deformity SKIN: No rashes CENTRAL NERVOUS SYSTEM: Not, extreme fatigued and oriented -2. No focal deficits, tone is normal in all 4 extremities. - Labs CBC & Chem 7: 06/06/19 05:42 06/06/19 05:42 Labs: Abnormal Lab Results - Last 24 Hours (Table) 06/06/19 06/06/19 06/06/19 Range/Units 05:42 05:42 05:42 RBC 2.56 L (4.30-5.90) m/uL Hgb 7.2 L (13.0-17.5) gm/dL Hct 22.4 L (39.0-53.0) % RDW 16.6 H (11.5-15.5) % Plt Count 80 L (150-450) k/uL Lymphocytes # (Manual) 0.68 L (1.0-4.8) k/uL Myelocytes # (Manual) 0.08 H (0) k/uL PT 12.4 H (9.0-12.0) sec INR 1.2 H (<1.2) Sodium 134 L (137-145) mmol/L Potassium 2.6 L* (3.5-5.1) mmol/L Chloride 95 L (98-107) mmol/L BUN 82 H (9-20) mg/dL Creatinine 3.92 H (0.66-1.25) mg/dL Glucose 126 H (74-99) mg/dL Calcium 7.3 L (8.4-10.2) mg/dL Assessment and Plan Plan: Assessment: 1 septic shock secondary to MSSA infective endocarditis. The patient has been on IV nafcillin. Patient is still requiring pressors for hemodynamic support. He has underlying cardiomyopathy addition sepsis which contributing to his lower blood pressure. He is on dobutamine for hemodynamic support. 2 CHF with systolic heart failure and ejection fraction of 30%, with secondary pulmonary edema and bilateral pleural effusions 3 acute hypoxic respiratory failure secondary to acute pulmonary edema secondary decompensated heart failure 4 hypotension secondary to above, a combination of cardiogenic and septic shock and the patient is on a combination of antibiotics, and pressors. The pressor requirements have remained unchanged over the past 24 hours. 5 lactic acidosis improved 6 acute kidney injury secondary to prerenal azotemia/ATN. Noted the patient was quite hypotensive related to sepsis and cardiogenic shock. The patient is currently on Lasix drip. The patient is a positive fluid balance. The renal function remains stable for now. 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 Replace serum potassium per protocol, nephrology is following. Chest x-ray today reviewed, showing pulmonary edema and possibility of superimposed ARDS. But clinically patient has any acute distress, FiO2 is down to 6 L, and can probably be wean down further. He is on appropriate antibiotics for MSSA bacteremia and endocarditis, ID service is following no fever or chills, follow blood culture was negative, repeat urine culture was negative. Remains vasopressor dependent, but clinically patient is more awake today. Long-term prognosis is extremely poor, although on today's exam patient is feeling and looking better, his appetite remains extremely poor, he has severe general medical debility. CODE STATUS is DO NOT RESUSCITATE, we have addressed with the family possibility of transition to palliative care but at this point we will continue supportive care as the family is not ready for palliative care. I performed a history & physical examination of the patient and discussed their management with my nurse practitioner, Taisha Saldaña. I reviewed the nurse practitioner's note and agree with the documented findings and plan of care. Lung sounds are positive for diminished with rales. The findings and the impression was discussed with the patient. I attest to the documentation by the nurse practitioner. Time with Patient: Less than 30
--- NOTE | 2019-06-06 18:51 | PN ---
PROGRESS NOTE DATE OF SERVICE: 06/06/2019. REASON FOR FOLLOWUP: MSSA mitral valve endocarditis. INTERVAL HISTORY: The patient is currently afebrile. The patient seemed to be hemodynamically slightly better with a blood pressure up to 108 systolic. The patient denies having any chest pain, some shortness of breath. No cough. No abdominal pain and no worsening diarrhea. PHYSICAL EXAMINATION: Blood pressure 108/63 with a pulse of 101, temperature 98. He is 93% on 6 L high-flow oxygen. General description is an elderly male lying in bed in no distress. Respiratory system: Unlabored breathing. Decreased breath sounds in the bases. No wheeze. Heart is S1, S2. Regular rate and rhythm. ABDOMEN: Soft, no tenderness. No guarding. No rigidity. LABS: Hemoglobin 7.1, white count 10.6, BUN of 82, creatinine 3.92. DIAGNOSTIC IMPRESSION AND PLAN: Patient with MSSA mitral valve endocarditis. Patient's follow up blood pressure has been negative. The patient seemed to have a problem with renal failure with worsening of his kidney function. Currently patient is covered with Nafcillin. Blood culture repeat has been negative so far. Continue supportive care. MMODL / IJN: [id number] /
--- NOTE | 2019-06-06 20:18 | PN ---
PROGRESS NOTE Patient is seen for followup for acute kidney injury, ATN and from cardiorenal syndrome. Patient was switched to Bumex drip yesterday. He seems to have responded better with an increase in urine output. Overall general condition is about the same. This morning blood pressure was 91/63, heart rate about 100 per minute. Patient is afebrile. He is awake. He is not in any acute distress. He answers simple questions. EXAMINATION OF THE HEART: S1 and S2. EXAMINATION OF LUNGS: Bilateral breath sounds are heard. Decreased breath sounds at bases. ABDOMEN: Soft, non-tender. Examination of lower extremities shows edema 3+ bilaterally. [employer] exam is grossly intact. Labs show hemoglobin 7.2, white cell count 7.6, sodium 134, potassium 2.6, chloride 95, BUN 82, serum creatinine 3.92. ASSESSMENT: 1. Acute kidney injury, cardiorenal and acute tubular necrosis, nonoliguric; renal function about the same. Serum creatinine is slightly higher today as compared to yesterday. However, patient is responding better with the Bumex drip, which I will continue for now. His weight is down by about 4 kg. [id number] urine output of about 3 L. 2. Mitral valve endocarditis. Repeat blood cultures negative thus far from 05/27/2019. 3. Chronic hypotension. 4. Sepsis with methicillin-susceptible Staphylococcus aeruginosa bacteremia and endocarditis, maintained on antibiotics. 5. Congestive heart failure, systolic, acute on top of chronic. 6. Cardiomyopathy; ejection fraction of about 30%. 7. Lactic acidosis, currently improved. 8. History of bladder cancer. PLAN: Continue with the Bumex drip. Replace potassium. Follow up on magnesium levels as well. MMODL / IJN: [id number] /
[2019-06-06] MEDS: MONTELUKAST 10 MG TAB PO SCH (21:06)
[2019-06-06] MEDS: SERTRALINE 50 MG TAB PO SCH (21:07)
--- NOTE | 2019-06-06 21:56 | P.PN ---
Subjective Progress Note Date: 06/05/19 Principal diagnosis: Septic shock 79-year-old pleasant gentleman came in with the shortness of breath and is being treated for sepsis possible source being pneumonia. Patient to sepsis improved significantly patient is off Levophed patient does have significant pulmonary edema from IV fluids and patient does have congestive heart failure ejection fraction at that to 35% received IV Lasix and this can you IV fluids will closely monitor his blood pressure patient normally has low blood pressure presently on Zosyn at this time. 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 05/23/2019 Patient wishes daily stable patient is receiving IV Lasix because of his pulmonary edema. Patient does have bacteremia with the staph aureus probably th e source of infection rather pneumonia or urinary tract infection patient will be switched to nafcillin discussed with infectious disease. Patient the has blood cultures that are positive second set of blood cultures are positive because of which echocardiogram will be obtained to rule out any endocarditis. Patient had low-grade fever yesterday we'll repeat blood cultures again today. Creatinine improved from 1.48 to 1.16. 05/24/2019 Patient's fevers resolved but blood cell count is improving. But patient remains bacteremic. Echocardiogram did not show any valvular lesions 9 DT astemizole which was replaced I had a lengthy discussion with the patient regarding her overall goals of care patient is agreeable for DO NOT RESUSCITATE but unsure whether he can make his own duration I'll discuss with the family regarding this. Patient prognosis is extremely poor because of possible endo carditis, bladder cancer, systolic heart failure patient is more appropriate for hospice and comfort care same thing was discussed the patient will also discuss with the family. Patient is quite a bit fatigued and he believes he is not in a 10 out of the hospital. 05/25/2019 patient is not doing well patient the blood cultures were positive from will repeat blood cultures tomorrow creatinine started going up patient blood pressure is still unstable patient is back on Levophed is still getting IV fluids patient does have pulmonary edema prognosis is extremely poor, will discuss with the family regarding hospice. Was unable to reach family yesterday 05/26/2019 Patient looks bit better today off levothyroid, patient today appears to able to my dictation because of which I had lengthy discussion with him regarding DO NOT RESUSCITATE patient wants to be full code because of which I do not believe it's reasonable to discuss regarding comfort care and hospice at this time. Although I did discuss with his regarding comfort care and hospice yesterday and patient's wanted to talk to me today in person as patient now wants everything to be done at believe that discussion is inappropriate and the patient will be continued on present treatment. Pulmonology believes patient may have an empyema. Patient most probably has an otitis and will need a JOSE cardiology was consulted for that. Repeat blood cultures will be obtained for today and tomorrow patient can use to have persistent bacteremia his prognosis although remains extremely poor. 05/27/2019 Patient is very lethargic but arousable. Currently on Levophed. Otherwise patient is being continued on antibiotics in the form of nafcillin for MSSA bacteremia. Repeat cultures have been negative so far. No fever no chills. Cardiology is following for possible JOSE to rule out vegetations. Chest x-ray showed persistent right greater than left bibasilar infiltrates/atelectasis and bilateral pleural effusions right greater than left. Patient otherwise saturating well on 4 L nausea cannula oxygen. WBC count improved to 9.4 from 12.7. BUN 74 and creatinine 2.65. Patient does have [place] catheter and fecal m anagement system. C. diff negative. Pt. still wants to be full code. 05/28/2019 Patient is lethargic but awake alert oriented 3 and is able to communicate. Patient had a JOSE done today showed circumferential mobile mass on the left anterior leaflet on the atrial side suggestive of vegetation. There is a sessile mass in the posterior leaflet of the mitral valve is again suggestive of vegetation. I aortic valve vegetation cannot be completely excluded. Patient is being continued on nafcillin. Cultures for the last 24-36 hours have been negative. Chest x-ray showed stable small to medium right effusion with adjacent atelectasis and/or consolidation. Patient was up Levophed this morning were was started back again later today. No fever no chills. WBC 6.9, sodium 131 and creatinine 2.88 05/29/2018 Patient is awake, alert and oriented 3.. Currently off you forwarded. Blood pressure is fairly stable. Patient is being continued on antibiotics in the form of nafcillin for MSSA bacteremia and infected endocarditis. CT surgery course medical management at this time. Patient is high risk for cardiac surgery. Patient is able to sit in the chair comfortably today. Otherwise patient is only completing 25% of his meal. Considering Dobbhoff tube placement. Plan patient has been afebrile. Blood cultures from 05/26 showed coagulase-negative staph. Patient has been afebrile. Creatinine level II.83 today. 05/30/2019 Patient remained in the MICU. Blood pressure is fairly stable with SBP around 100. Currently on Midodrin. Levophed is on hold currently. Patient is comfortable and lying in the bed without any distress. No fever no chills. Otherwise patient does not have much appetite. Currently being continued on nafcillin. PICC line was placed today. Chest x-ray showed slight worsening interstitial edema and IV Lasix 2 doses was ordered. Renal function slightly worsened with creatinine level III.35. Repeat cultures have been negative so far. Patient is being placed on Dobbhoff tube due to poor nutrition. 05/31/2019 Patient is awake alert and oriented but looks very congested. Patient was started on tube feeding via Dobbhoff tube not tolerating very well. Otherwise very minimal oral intake. Blood pressures to in the lower side. Patient was given a dose of albumin followed by IV Lasix. Still having leg swelling and congestion the chest x-ray. Otherwise patient is being continued on antibiotics in the office nafcillin for infected endocarditis. WBC count 6.9. Patient is not a surgical candidate at this time. Nephrology cardiology and pulmonary is following. Prognosis is guarded. 06/01/2019 Patient is awake alert but lethargic and very congested. Chest x-ray showed CHF versus pulmonary edema. Patient was started on IV Lasix as per nephrology recommendations. Patient is being continued on midodrine. Blood pressure is on the lower side with SBP 90s. Otherwise patient is being continued on nafcillin for infected endocarditis. Patient is having worsening leg swelling and edema. No leukocytosis. Nephrology and cardiology is following. Prognosis guarded with this time. 06/02/2019 Patient seems more lethargic and confused today. Patient is still fluid overloaded otherwise. Currently continued on IV Lasix. Also on pressor support with Levophed and dobutamine. Renal function is worsening. Hemoglobin is 6.4). Patient is still hypotensive and required pressor support. And also fluid overloaded. Prognosis poor at this time. Nephrology and cardiology is on board. Currently being continued on antibiotics in the form of nafcillin. 06/03/2019 Patient is confused and lethargic but awake and oriented. Currently on Lasix d rip. Pressor support with norepinephrine and dobutamine. Being continued on Naprosyn for infected endocarditis. Creatinine 3.98, hemoglobin improved with blood transfusion to 7.8 06/04/2019 Patient is currently lying in the bed. Lethargic but awake alert. Continued on dopamine and norepinephrine. Continued on Lasix drip. Chest x-ray showed pulmonary edema and heart failure. Renal function remain the same at 3.98. Hemoglobin level again dropped down to 6.9 today. No fever no chills. Continued antibiotics in the form of nafcillin. Nephrology and pulmonary is following. 06/05/2019 Patient is currently lying in the bed comfortably. Awake alert oriented but lethargic. Patient is being continued on Lasix drip. Currently on 2 pressors. BUN and 85 and creatinine 2.7. Hemoglobin level is 6.3 today. Patient is being transferred with 1 unit of PRBC. Denied a complaints of chest pain. Saturating well on nasal cannula oxygen. Patient is also on nafcillin due to infected endocarditis. Patient is on [place] catheter. Constitutional: fatigued. Awake alert and oriented. Cardio vascular: denied any chest pain, palpitations Gastrointestinal denied any nausea vomiting Pulmonary: Does have shortness of breath Neurologic no new focal deficits All inpatient medications were reviewed and appropriate changes in these medications as dictated in the interval history and assessment and plan. Objective - Vital Signs Vital signs: Vital Signs Temp 96.1 F L 06/05/19 10:00 Pulse 96 06/05/19 12:56 Resp 18 06/05/19 11:30 BP 91/81 06/05/19 11:30 Pulse Ox 98 06/05/19 11:30 Intake & Output 06/04/19 06/05/19 06/05/19 18:59 06:59 18:59 Intake Total 976.371 5220.462 510 Output Total 975 1125 350 Balance -178.833 388.462 160 Weight 94 kg 94 kg Intake: IV 660 650 200 0.9 240 240 100 Furosemide 100 mg In 120 110 0 Sodium Chloride 0.9% 90 ml @ 10 MG/HR 10 mls/hr IV .Q10H LOUIE Rx#: [id number] Nafcillin 2 gm In 300 300 100 Dextrose 5% in Water 100 ml @ 50 mls/hr IVPB Q4HR LOUIE Rx#:[id number] Intake, IV Titration 86.167 863.462 Amount DOBUTamine DRIP 500 mg In 249.57 Dextrose/Water 1 250ml. bag @ 5 MCG/KG/MIN 13.275 mls/hr IV .[id number] LOUIE Rx#:[id number] Furosemide 100 mg In 86.167 200 Sodium Chloride 0.9% 90 ml @ 10 MG/HR 10 mls/hr IV .Q10H LOUIE Rx#: [id number] Norepinephrine 8 mg In 413.892 Sodium Chloride 0.9% 250 ml @ 0.05 MCG/KG/MIN 8. 562 mls/hr IV .Q24H LOUIE Rx#:[id number] Oral 50 Blood Product 0 310 Rc As-3 Unit 0 310 [id number] Output: Urine 875 1125 350 Stool 100 Other: Voiding Method Indwelling Catheter Indwelling Catheter Indwelling Catheter # Voids 1 - Exam GENERAL: The patient is alert and oriented x3, lethargic and fatigued.. Well developed, well nourished. HEENT: Pupils are round and equally reacting to light. EOMI. No scleral icterus. No conjunctival pallor. Normocephalic, atraumatic. No pharyngeal erythema. No thyromegaly. CARDIOVASCULAR: S1 and S2 present. No murmurs, rubs, or gallops. Does have elevated JVD PULMONARY: Bibasilar diminished air entry. Diffuse rhonchi and coarse breath sounds. no wheezing ABDOMEN: Soft, nontender, nondistended, normoactive bowel sounds. No palpable organomegaly. MUSCULOSKELETAL: No joint swelling or deformity. EXTREMITIES: No cyanosis, clubbing, 2+ pedal edema. NEUROLOGICAL: Gross neurological examination did not reveal any focal deficits. SKIN: No rashes. - Labs CBC & Chem 7: 06/06/19 05:42 06/06/19 05:42 Labs: Abnormal Lab Results - Last 24 Hours (Table) 06/02/19 06/05/19 06/05/19 Range/Units 06:52 05:17 05:17 RBC 2.14 L (4.30-5.90) m/uL Hgb 6.3 L* (13.0-17.5) gm/dL Hct 19.3 L* (39.0-53.0) % RDW 18.0 H (11.5-15.5) % Plt Count 100 L (150-450) k/uL Sodium 131 L (137-145) mmol/L Potassium 3.4 L (3.5-5.1) mmol/L Carbon Dioxide 19 L (22-30) mmol/L BUN 85 H (9-20) mg/dL Creatinine 3.74 H (0.66-1.25) mg/dL Glucose 112 H (74-99) mg/dL Calcium 7.2 L (8.4-10.2) mg/dL Crossmatch See Detail Assessment and Plan Assessment: -Sepsis, septic shock: shock improved. due to to mitral valve vegetation/ infective endocarditis. Status post JOSE on 05/28/2019. Patient is presently on nafcillin, pt. had persistent bacteremia. Patient was on norepinephrine.. Blood cultures have been negative since 05/27/2019 -Acute hypoxic respiratory failure secondary to congestive heart failure exacerbation. -Lactic acidosis secondary to sepsis resolved now. patient is presently receiving Lasix -Acute renal failure secondary to prerenal azotemia and acute tubular necrosis creatinine improved started going up again because of hypotension, sepsis and congestive heart failure -Hypervolemic hyponatremia secondary to congestive heart failure improving with Lasix. -Congestive heart failure chronic systolic dysfunction ejection fraction of 30- 35% with acute exacerbation, patient has ischemic cardiomyopathy -COPD chronic hypercapnic respiratory failure on oxygen at home. -Possibility of bladder cancer bladder cancer, following follows up with urology and a recent TURP which was incomplete and aborted secondary to hypotension -Coronary artery disease with previous CABG patient has recent cardiac c atheterization which did not show any atherosclerotic occlusive disease that need intervention. -Hypertension -Hypothyroidism: Continue with levothyroxine -Benign prostatic hypertrophiy. -DVT prophylaxis with subcutaneous heparin twice a day Time with Patient: Greater than 30
--- NOTE | 2019-06-06 22:01 | P.PN ---
Subjective Progress Note Date: 06/06/19 Principal diagnosis: Septic shock 79-year-old pleasant gentleman came in with the shortness of breath and is being treated for sepsis possible source being pneumonia. Patient to sepsis improved significantly patient is off Levophed patient does have significant pulmonary edema from IV fluids and patient does have congestive heart failure ejection fraction at that to 35% received IV Lasix and this can you IV fluids will closely monitor his blood pressure patient normally has low blood pressure presently on Zosyn at this time. Being followed by multiple consultants andrew galicia infectious disease can sealer. 05/23/2019 Patient wishes daily stable patient is receiving IV Lasix because of his pulmonary edema. Patient does have bacteremia with the staph aureus probably th e source of infection rather pneumonia or urinary tract infection patient will be switched to nafcillin discussed with infectious disease. Patient the has blood cultures that are positive second set of blood cultures are positive because of which echocardiogram will be obtained to rule out any endocarditis. Patient had low-grade fever yesterday we'll repeat blood cultures again today. Creatinine improved from 1.48 to 1.16. 05/24/2019 Patient's fevers resolved but blood cell count is improving. But patient remains bacteremic. Echocardiogram did not show any valvular lesions 9 DT astemizole which was replaced I had a lengthy discussion with the patient regarding her overall goals of care patient is agreeable for DO NOT RESUSCITATE but unsure whether he can make his own duration I'll discuss with the family regarding this. Patient prognosis is extremely poor because of possible endo carditis, bladder cancer, systolic heart failure patient is more appropriate for hospice and comfort care same thing was discussed the patient will also discuss with the family. Patient is quite a bit fatigued and he believes he is not in a 10 out of the hospital. 05/25/2019 patient is not doing well patient the blood cultures were positive from will repeat blood cultures tomorrow creatinine started going up patient blood pressure is still unstable patient is back on Levophed is still getting IV fluids patient does have pulmonary edema prognosis is extremely poor, will discuss with the family regarding hospice. Was unable to reach family yesterday 05/26/2019 Patient looks bit better today off levothyroid, patient today appears to able to my dictation because of which I had lengthy discussion with him regarding DO NOT RESUSCITATE patient wants to be full code because of which I do not believe it's reasonable to discuss regarding comfort care and hospice at this time. Although I did discuss with his regarding comfort care and hospice yesterday and patient's wanted to talk to me today in person as patient now wants everything to be done at believe that discussion is inappropriate and the patient will be continued on present treatment. Pulmonology believes patient may have an empyema. Patient most probably has an otitis and will need a JOSE cardiology was consulted for that. Repeat blood cultures will be obtained for today and tomorrow patient can use to have persistent bacteremia his prognosis although remains extremely poor. 05/27/2019 Patient is very lethargic but arousable. Currently on Levophed. Otherwise patient is being continued on antibiotics in the form of nafcillin for MSSA bacteremia. Repeat cultures have been negative so far. No fever no chills. Cardiology is following for possible JOSE to rule out vegetations. Chest x-ray showed persistent right greater than left bibasilar infiltrates/atelectasis and bilateral pleural effusions right greater than left. Patient otherwise saturating well on 4 L nausea cannula oxygen. WBC count improved to 9.4 from 12.7. BUN 74 and creatinine 2.65. Patient does have [place] catheter and fecal m anagement system. C. diff negative. Pt. still wants to be full code. 05/28/2019 Patient is lethargic but awake alert oriented 3 and is able to communicate. Patient had a JOSE done today showed circumferential mobile mass on the left anterior leaflet on the atrial side suggestive of vegetation. There is a sessile mass in the posterior leaflet of the mitral valve is again suggestive of vegetation. I aortic valve vegetation cannot be completely excluded. Patient is being continued on nafcillin. Cultures for the last 24-36 hours have been negative. Chest x-ray showed stable small to medium right effusion with adjacent atelectasis and/or consolidation. Patient was up Levophed this morning were was started back again later today. No fever no chills. WBC 6.9, sodium 131 and creatinine 2.88 05/29/2018 Patient is awake, alert and oriented 3.. Currently off you forwarded. Blood pressure is fairly stable. Patient is being continued on antibiotics in the form of nafcillin for MSSA bacteremia and infected endocarditis. CT surgery course medical management at this time. Patient is high risk for cardiac surgery. Patient is able to sit in the chair comfortably today. Otherwise patient is only completing 25% of his meal. Considering Dobbhoff tube placement. Plan patient has been afebrile. Blood cultures from 05/26 showed coagulase-negative staph. Patient has been afebrile. Creatinine level II.83 today. 05/30/2019 Patient remained in the MICU. Blood pressure is fairly stable with SBP around 100. Currently on Midodrin. Levophed is on hold currently. Patient is comfortable and lying in the bed without any distress. No fever no chills. Otherwise patient does not have much appetite. Currently being continued on nafcillin. PICC line was placed today. Chest x-ray showed slight worsening interstitial edema and IV Lasix 2 doses was ordered. Renal function slightly worsened with creatinine level III.35. Repeat cultures have been negative so far. Patient is being placed on Dobbhoff tube due to poor nutrition. 05/31/2019 Patient is awake alert and oriented but looks very congested. Patient was started on tube feeding via Dobbhoff tube not tolerating very well. Otherwise very minimal oral intake. Blood pressures to in the lower side. Patient was given a dose of albumin followed by IV Lasix. Still having leg swelling and congestion the chest x-ray. Otherwise patient is being continued on antibiotics in the office nafcillin for infected endocarditis. WBC count 6.9. Patient is not a surgical candidate at this time. Nephrology cardiology and pulmonary is following. Prognosis is guarded. 06/01/2019 Patient is awake alert but lethargic and very congested. Chest x-ray showed CHF versus pulmonary edema. Patient was started on IV Lasix as per nephrology recommendations. Patient is being continued on midodrine. Blood pressure is on the lower side with SBP 90s. Otherwise patient is being continued on nafcillin for infected endocarditis. Patient is having worsening leg swelling and edema. No leukocytosis. Nephrology and cardiology is following. Prognosis guarded with this time. 06/02/2019 Patient seems more lethargic and confused today. Patient is still fluid overloaded otherwise. Currently continued on IV Lasix. Also on pressor support with Levophed and dobutamine. Renal function is worsening. Hemoglobin is 6.4). Patient is still hypotensive and required pressor support. And also fluid overloaded. Prognosis poor at this time. Nephrology and cardiology is on board. Currently being continued on antibiotics in the form of nafcillin. 06/03/2019 Patient is confused and lethargic but awake and oriented. Currently on Lasix d rip. Pressor support with norepinephrine and dobutamine. Being continued on Naprosyn for infected endocarditis. Creatinine 3.98, hemoglobin improved with blood transfusion to 7.8 06/04/2019 Patient is currently lying in the bed. Lethargic but awake alert. Continued on dopamine and norepinephrine. Continued on Lasix drip. Chest x-ray showed pulmonary edema and heart failure. Renal function remain the same at 3.98. Hemoglobin level again dropped down to 6.9 today. No fever no chills. Continued antibiotics in the form of nafcillin. Nephrology and pulmonary is following. 06/05/2019 Patient is currently lying in the bed comfortably. Awake alert oriented but lethargic. Patient is being continued on Lasix drip. Currently on 2 pressors. BUN and 85 and creatinine 3.72. Hemoglobin level is 6.3 today. Patient is being transferred with 1 unit of PRBC. Denied a complaints of chest pain. Saturating well on nasal cannula oxygen. Patient is also on nafcillin due to infected endocarditis. Patient is on [place] catheter. 06/06/2019 Patient is more awake and is able to communicate at this time. Still lethargic. Currently patient remained on pressor support with Levophed and dobutamine. Zaroxolyn has been added along with Lasix drip. Patient is otherwise diuresing well. Denied any complaints of chest pain or worsening shortness of breath. Chest x- ray showed diffuse pulmonary edema with possibility of ARDS. Repeat cultures have been negative so far. Patient is currently on nafcillin for MSSA bacteremia and infected endocarditis. Hemoglobin level improved from 6.3-7.2 with 1 unit of PRBC transfusion. Creatinine level increased to 3.9 today. No fever no chills. No nausea vomiting or abdominal pain. No diarrhea. Constitutional: fatigued. Awake alert and oriented. Cardio vascular: denied any chest pain, palpitations Gastrointestinal denied any nausea vomiting Pulmonary: Does have shortness of breath Neurologic no new focal deficits All inpatient medications were reviewed and appropriate changes in these medications as dictated in the interval history and assessment and plan. Objective - Vital Signs Vital signs: Vital Signs Temp 97.1 F L 06/06/19 20:00 Pulse 112 H 06/06/19 21:15 Resp 12 06/06/19 21:15 BP 97/66 06/06/19 21:15 Pulse Ox 100 06/06/19 21:15 Intake & Output 06/06/19 06/06/19 06/07/19 06:59 18:59 06:59 Intake Total 9406.959 0085.797 260 Output Total 2250 2160 450 Balance -1081.077 -521.203 -190 Weight 90.1 kg Intake: IV 540 520 160 0.9 240 220 60 Nafcillin 2 gm In 300 300 100 Dextrose 5% in Water 100 ml @ 50 mls/hr IVPB Q4HR [facility] Rx#:[id number] Intake, IV Titration 628.923 918.797 Amount Bumetanide 10 mg In 100 129.667 Dextrose 5% in Water 60 ml @ 1 MG/HR 10 mls/hr IV .Q10H [facility] Rx#:[id number] DOBUTamine DRIP 500 mg In 250 78.986 Dextrose/Water 1 250ml. bag @ 5 MCG/KG/MIN 13.275 mls/hr IV .[id number] [facility] Rx#:[id number] Norepinephrine 8 mg In 278.923 310.144 Sodium Chloride 0.9% 250 ml @ 0.05 MCG/KG/MIN 8. 562 mls/hr IV .Q24H [facility] Rx#:[id number] Potassium Chloride 20 meq 400 In Water For Injection 1 100ml.bag @ 50 mls/hr IVPB ONCE ONE Rx#: [id number] Oral 200 100 Output: Urine 2150 2160 450 Stool 100 Other: Voiding Method Indwelling Catheter Indwelling Catheter Indwelling Catheter # Bowel Movements 1 - Exam GENERAL: The patient is alert and oriented x3, lethargic and fatigued.. Well developed, well nourished. HEENT: Pupils are round and equally reacting to light. EOMI. No scleral icterus. No conjunctival pallor. Normocephalic, atraumatic. No pharyngeal erythema. No thyromegaly. CARDIOVASCULAR: S1 and S2 present. No murmurs, rubs, or gallops. Does have elevated JVD PULMONARY: Bibasilar diminished air entry. Diffuse rhonchi and coarse breath sounds. no wheezing ABDOMEN: Soft, nontender, nondistended, normoactive bowel sounds. No palpable organomegaly. MUSCULOSKELETAL: No joint swelling or deformity. EXTREMITIES: No cyanosis, clubbing, 2+ pedal edema. NEUROLOGICAL: Gross neurological examination did not reveal any focal deficits. SKIN: No rashes. - Labs CBC & Chem 7: 06/06/19 05:42 06/06/19 05:42 Labs: Abnormal Lab Results - Last 24 Hours (Table) 06/06/19 06/06/19 06/06/19 Range/Units 05:42 05:42 05:42 RBC 2.56 L (4.30-5.90) m/uL Hgb 7.2 L (13.0-17.5) gm/dL Hct 22.4 L (39.0-53.0) % RDW 16.6 H (11.5-15.5) % Plt Count 80 L (150-450) k/uL Lymphocytes # (Manual) 0.68 L (1.0-4.8) k/uL Myelocytes # (Manual) 0.08 H (0) k/uL PT 12.4 H (9.0-12.0) sec INR 1.2 H (<1.2) Sodium 134 L (137-145) mmol/L Potassium 2.6 L* (3.5-5.1) mmol/L Chloride 95 L (98-107) mmol/L BUN 82 H (9-20) mg/dL Creatinine 3.92 H (0.66-1.25) mg/dL Glucose 126 H (74-99) mg/dL Calcium 7.3 L (8.4-10.2) mg/dL Assessment and Plan Assessment: -Sepsis, septic shock: shock improved. due to to mitral valve vegetation/ infective endocarditis. Status post JOSE on 05/28/2019. Patient is presently on nafcillin, pt. had persistent bacteremia. Patient was on norepinephrine.. Blood cultures have been negative since 05/27/2019 -Acute hypoxic respiratory failure secondary to congestive heart failure exacerbation. -Hypertension due to cardiogenic and septic shock. Currently on 2 pressors support. -Lactic acidosis secondary to sepsis resolved now. patient is presently on Lasix drip -Acute renal failure secondary to prerenal azotemia and acute tubular necrosis creatinine improved started going up again because of hypotension, sepsis and congestive heart failure -Hypervolemic hyponatremia secondary to congestive heart failure improving with Lasix. -Congestive heart failure chronic systolic dysfunction ejection fraction of 30-3 5% with acute exacerbation, patient has ischemic cardiomyopathy -COPD chronic hypercapnic respiratory failure on oxygen at home. -Possibility of bladder cancer bladder cancer, following follows up with urology and a recent TURP which was incomplete and aborted secondary to hypotension -Coronary artery disease with previous CABG patient has recent cardiac catheterization which did not show any atherosclerotic occlusive disease that need intervention. -Hypertension -Hypothyroidism: Continue with levothyroxine -Benign prostatic hypertrophiy. -DVT prophylaxis with subcutaneous heparin twice a day Time with Patient: Greater than 30
[2019-06-07] MEDS: BUMETANIDE 10 MG in DEXTROSE 5% IN WATER 60 ML IV SCH ×6 (03:39→22:32)
[2019-06-07] MEDS: NAFCILLIN 2 GM in DEXTROSE 5% IN WATER 100 ML IVPB SCH ×10 (03:39→20:13)
[2019-06-07 04:18] LABS: Anisocytosis Slight; Basophils # (A) 0.1 k/uL (0-0.2); Basophils % (A) 1 %; Eosinophils % (A) 0 %; HCT 20.1 % (39.0-53.0); Hypochromasia Slight; Lymphocytes # (A) 0.5 k/uL (1.0-4.8); Lymphocytes % (A) 6 %; MCH 30.1 pg (25.0-35.0); MCHC 33.9 g/dL (31.0-37.0); MCV 88.8 fL (80.0-100.0); Monocytes # (A) 0.2 k/uL (0-1.0); Monocytes % (A) 2 %; Neutrophils # (A) 8.7 k/uL (1.3-7.7); Neutrophils % (A) 90 %; Poikilocytosis Slight; RBC 2.26 m/uL (4.30-5.90); WBC 9.6 k/uL (3.8-10.6)
[2019-06-07 04:42] LABS: HGB 6.8 gm/dL (13.0-17.5); Platelet Count 74 k/uL (150-450)
[2019-06-07 04:49] LABS: Calcium 7.3 mg/dL (8.4-10.2); Magnesium 1.9 mg/dL (1.6-2.3); Potassium 2.8 mmol/L (3.5-5.1)
[2019-06-07] MEDS: NOREPINEPHRINE 8 MG in SODIUM CHLORIDE 0.9% 250 ML IV SCH ×2 (04:52→20:00)
[2019-06-07] MEDS ORDERED: POTASSIUM CHLORIDE 10 MEQ in WATER FOR INJECTION 1 100ML.BAG IVPB STA ×2 (05:22→05:50)
[2019-06-07] MEDS: POTASSIUM CHLORIDE ER 20 MEQ TAB.ER PO SCH ×6 (05:44→22:27)
[2019-06-07] MEDS: DOBUTamine DRIP 500 MG in DEXTROSE/WATER 1 250ML.BAG IV SCH (05:53)
[2019-06-07] MEDS: MIDODRINE 5 MG TAB PO SCH ×3 (06:46→16:30)
[2019-06-07] MEDS: LEVOTHYROXINE 112 MCG TAB PO SCH (06:46)
[2019-06-07] MEDS: IPRATROPIUM-ALBUTEROL 3 ML NEB INHALATION SCH ×3 (07:33→19:41)
[2019-06-07] MEDS: SYMBICORT 160-4.5 MCG INHALER INHALATION SCH ×2 (07:33→19:41)
[2019-06-07] MEDS: HYDROCORTISONE SUCCINATE 100 MG/2 ML VIAL IV SCH ×3 (08:24→16:30)
[2019-06-07] MEDS: HEPARIN SODIUM,PORCINE 5,000 UNIT/ML 1 ML VIAL SQ SCH ×3 (08:27→16:30)
[2019-06-07] MEDS: PANTOPRAZOLE 40 MG TABLET PO SCH (09:26)
[2019-06-07] MEDS: SODIUM BICARBONATE TAB 650 MG TAB PO SCH (09:26)
[2019-06-07] MEDS: ASPIRIN 81 MG PO SCH (09:26)
[2019-06-07] MEDS: NYSTATIN 100,000 UNIT/ML SUSP 500,000 UNIT/5 ML CUP PO SCH ×4 (09:26→20:41)
[2019-06-07] MEDS: CHOLESTYRAMINE (WITH SUGAR) 4 GM PACKET PO SCH ×2 (09:27→18:20)
[2019-06-07] MEDS: METOLAZONE 5 MG TAB PO SCH ×2 (09:27→20:40)
[2019-06-07] MEDS: OXYBUTYNIN XL 5 MG TAB.ER.24 PO SCH (09:27)
[2019-06-07] MEDS: HYDROPHILIC CREAM 180 GM TUBE TOPICAL SCH ×2 (09:28→20:40)
--- NOTE | 2019-06-07 09:37 | XR ---
EXAMINATION TYPE: XR chest 1V portable DATE OF EXAM: 06/07/2019 COMPARISON: Chest x-ray 06/06/2019 HISTORY: Congestive heart failure TECHNIQUE: Single frontal view of the chest is obtained. FINDINGS: There is some improvement in aeration as compared to prior exam. Left-sided PICC line, pos t median sternotomy changes are again noted. Heart size not significantly changed. No evident pneumot horax or sizable pleural effusion IMPRESSION: Some improvement in aeration, volume status. Additional follow-up recommended.
--- NOTE | 2019-06-07 11:02 | P.PN ---
Subjective Progress Note Date: 06/07/19 This is a 79-year-old gentleman who has been in this hospital since 05/21/2019. Patient is admitted with the diagnosis of cardiac myopathy, dyslipidemia, hypothyroidism, coronary artery disease and also with complaints of fever or chills. His blood cultures are positive for staph aureus. A JOSE examination is requested because of bacteremia. Patient was seen by Dr. Gayle and felt that patient was confused yesterday. He would consider and patient is more stable. Patient is alert and doesn't appear to be in acute distress at this time. Still seemed to be somewhat confused. His last blood culture apparently was negative. I will discuss with Dr. Gayle about timing of the JOSE. Meanwhile continue with antibiotic therapy. 05/28/2019: This 79-year-old gentleman is being treated for sepsis, renal failure, cardiomyopathy and probably some element of congestive heart failure. Patient is not feeling well. He complaints of back pain. His also complains of shortness of breath. He is oliguric. His chest x-ray shows a right-sided infiltrates and effusion. Patient's IV fluids were cut back and was given IV Lasix by nephrology, yesterday. ID specialist once JOSE. Discussed with patient and also his and we plan to the JOSE around 11:00. Meanwhile continue with antibiotic therapy. Prognosis is guarded. His creatinine has gone up, and prior patient may need dialysis if the renal function doesn't improve. Prognosis is poor. 05/29/2019: This patient remains relatively stable. No fevers. Patient is eating poorly. Denies any chest pain but complains of shortness of breath. His creatinine is about 2.83. He remains nonoliguric. Patient was seen by cardiac surgery. [place] to be a high risk candidate for surgery. Advised continued antibiotic therapy. His lungs show diminished breath sounds. Heart sounds are distant and difficult to appreciate any murmurs. We'll continue current medical therapy. Prognosis is guarded. 05/30/2019: The patient is still intensive care unit. He remains frail. Denies any acute distress. No complaints of any chest pain. Patient is not eating well. His blood pressure is maintaining about 100 systolic. Patient is on Midodrin. Patient is nonoliguric. His creatinine has gone up. His Lasix is being held. Patient is seen by cardiac surgeon felt to be at high risk candidate for surgery. Advised continuation of antibiotic therapy. Prognosis is guarded 05/31/2019: Patient condition hasn't changed. He remains weak. He doesn't have any fever. He is not eating well. His creatinine is going up. It appears that patient may be intravascularly volume depleted. Lasix is discontinued. Denies any chest pain or shortness of breath. Remains alert. His blood cultures have been negative. He is getting IV antibiotics. Lungs show diminished breath sounds. Heart is regular. We will continue current medical therapy except discontinue Lasix. 06/02/2019: This patient is alert but weak and frail and seemed to be at times confused. Patient was given IV Lasix and had some urine output, but oliguric. His creatinine has gone up. His hemoglobin dropped. He is not febrile. Overall his clinical condition seemed to be deteriorating. He is getting antibiotics. We will try IV dobutamine. Chest x-ray shows some worsening of CHF. Discussed with family about CODE STATUS. We'll also wait for the input from scallop cutter machine regarding renal failure. Patient may need dialysis. 06/03/2019: This patient continues to do poorly. He remains confused, weak and frail. His urine output is still poor. He is on IV Lasix drip along with a dobutamine. This seemed some improvement in the urine output. Remains relative ly hypotensive. His continues to be on antibiotics. His no CODE STATUS was changed to no intubation. We'll continue current medical therapy. He is being treated for infected endocarditis. Prognosis is poor. 06/04/2019: Patient continues to do poorly. He is alert and able to follow commands. Remains weak and frail. Patient is on IV dobutamine and also IV Lasix along with Levophed. Maintaining a blood pressure below 9200. No fever or chills. Renal function remains poor. Patient is urine output is about 30-40 mL. Creatinine is in the range of 3.8. Seen by both scallop cutter machine and also beef ribber. Discussed with family about poor prognosis which they understand. His no CODE STATUS. Continue with current management. 06/05/2019: Patient is alert but seemed to be confused. Patient's hemoglobin showed a further drop. He is receiving 1 unit of blood transfusion. Irregular urine output is steady at 30-40 mL. His crit oumar remained stable. He maintained sinus rhythm. No fever chills. Overall the patient's condition is stable without much improvement. Prognosis is guarded. 06/06/2019: This patient's condition hasn't changed much. He is diuresing better. Chest x-ray, however, states was bilateral infiltrates and evidence of pulmonary edema. Patient is in mild to moderate respiratory distress. Doesn't complain of any chest pains. His continues to be IV dobutamine and IV Lasix and also Levophed along with antibiotics. Creatinine is slightly high. Patient di dn't receive blood transfusion and hemoglobin is about 7 g. Prognosis is poor. 06/07/2019: Patient condition seemed to show some improvement. Since patient was started on Bumex drip. It appears that patient started having more urine output. Chest x-ray shows improvement. His creatinine also shows improvement. Patient is still confused and doesn't appear to be in any acute distress. Patient is still on IV dobutamine and also Levophed drips along with Bumex. Urine output is good. We'll continue current medical therapy. Patient remains afebrile. We'll repeat the echocardiogram to assess mitral valve function. Prognosis still guarded Objective - Vital Signs Vital signs: Vital Signs Temp 97.2 F L 06/07/19 10:24 Pulse 98 06/07/19 10:24 Resp 18 06/07/19 10:24 BP 104/56 06/07/19 10:24 Pulse Ox 100 06/07/19 10:24 Intake & Output 06/06/19 06/07/19 06/07/19 18:59 06:59 18:59 Intake Total 6321.192 5973 1112.627 Output Total 2160 2375 1340 Balance -521.203 -1077 -227.373 Weight 88.3 kg Intake: IV 520 540 260 0.9 220 240 210 Nafcillin 2 gm In 300 300 50 Dextrose 5% in Water 100 ml @ 50 mls/hr IVPB Q4HR [facility] Rx#:[id number] Intake, IV Titration 918.797 658 232.627 Amount Bumetanide 10 mg In 129.667 100 Dextrose 5% in Water 60 ml @ 1 MG/HR 10 mls/hr IV .Q10H [facility] Rx#:[id number] DOBUTamine DRIP 500 mg In 78.986 250 Dextrose/Water 1 250ml. bag @ 5 MCG/KG/MIN 13.275 mls/hr IV .[id number] [facility] Rx#:[id number] Norepinephrine 8 mg In 310.144 258 82.627 Sodium Chloride 0.9% 250 ml @ 0.05 MCG/KG/MIN 8. 562 mls/hr IV .Q24H [facility] Rx#:[id number] Potassium Chloride 10 meq 50 150 In Water For Injection 1 100ml.bag @ 100 mls/hr IVPB ONCE STA Rx#: [id number] Potassium Chloride 20 meq 400 In Water For Injection 1 100ml.bag @ 50 mls/hr IVPB ONCE ONE Rx#: [id number] Oral 200 100 Blood Product 620 Rc Cpda-1 Unit 310 [id number] Output: Urine 2160 2375 1340 Other: Voiding Method Indwelling Catheter Indwelling Catheter # Bowel Movements 1 - Exam GENERAL EXAM: Patient is alert and somewhat confused HEENT: Normocephalic. Normal reaction of pupils, equal size, normal range of extraocular motion. No erythema or exudates in the throat. NECK: No masses, no nuchal rigidity. CHEST: No chest wall deformity. LUNGS: Decreased air entry, especially on the left side HEART: S1 and S2 normal with no audible mumurs or gallops. Regular rhythm, femorals equal on both sides.. ABDOMEN: No hepatosplenomegaly, normal bowel sounds, no guarding or rigidity. SKIN: No rashes CENTRAL NERVOUS SYSTEM: No gross deficits EXTREMITIES: Edema present - Labs CBC & Chem 7: 06/07/19 03:44 06/07/19 10:30 Labs: Abnormal Lab Results - Last 24 Hours (Table) 06/07/19 06/07/19 06/07/19 Range/Units 03:44 03:44 06:06 RBC 2.26 L (4.30-5.90) m/uL Hgb 6.8 L* (13.0-17.5) gm/dL Hct 20.1 L (39.0-53.0) % RDW 17.0 H (11.5-15.5) % Plt Count 74 L (150-450) k/uL Neutrophils # 8.7 H (1.3-7.7) k/uL Lymphocytes # 0.5 L (1.0-4.8) k/uL Sodium 133 L (137-145) mmol/L Potassium 2.8 L (3.5-5.1) mmol/L Chloride 95 L (98-107) mmol/L BUN 86 H (9-20) mg/dL Creatinine 3.47 H (0.66-1.25) mg/dL Glucose 130 H (74-99) mg/dL Calcium 7.3 L (8.4-10.2) mg/dL Crossmatch See Detail 06/07/19 Range/Units 10:30 RBC (4.30-5.90) m/uL Hgb (13.0-17.5) gm/dL Hct (39.0-53.0) % RDW (11.5-15.5) % Plt Count (150-450) k/uL Neutrophils # (1.3-7.7) k/uL Lymphocytes # (1.0-4.8) k/uL Sodium (137-145) mmol/L Potassium 3.2 L (3.5-5.1) mmol/L Chloride (98-107) mmol/L BUN (9-20) mg/dL Creatinine (0.66-1.25) mg/dL Glucose (74-99) mg/dL Calcium (8.4-10.2) mg/dL Crossmatch Assessment and Plan (1) Staphylococcus aureus bacteremia Current Visit: Yes Status: Acute Code(s): R78.81 - BACTEREMIA SNOMED Code(s): 055437598 (2) Cardiomyopathy Current Visit: Yes Status: Acute Code(s): I42.9 - CARDIOMYOPATHY, UNSPECIFIED SNOMED Code(s): 53055395 (3) Congestive heart failure Current Visit: Yes Status: Acute Code(s): I50.9 - HEART FAILURE, UNSPECIFIED SNOMED Code(s): 41159837 (4) Pleural effusion Current Visit: Yes Status: Acute Code(s): J90 - PLEURAL EFFUSION, NOT ELSEWHERE CLASSIFIED SNOMED Code(s): 43192303 (5) Pneumonia Current Visit: Yes Status: Acute Code(s): J18.9 - PNEUMONIA, UNSPECIFIED ORGANISM SNOMED Code(s): 537102121 (6) Sepsis Current Visit: Yes Status: Acute Code(s): A41.9 - SEPSIS, UNSPECIFIED ORGANISM SNOMED Code(s): 63484289 Plan: Continue current medical therapy. I will repeat the echocardiogram to assess mitral valve function
--- NOTE | 2019-06-07 11:20 | P.PN ---
Subjective This is a pleasant 79 years old male with past medical history of coronary artery disease, heart failure, COPD, GERD, hyperlipidemia, osteoarthritis, benign prostatic hypertrophy, hypothyroidism, sleep apnea on CPAP/BiPAP, chronic back pain with herniated disc. Patient has been in the ICU for several days for septic shock secondary to endocarditis with MSSA, complicated by acute congestive heart failure with ejection fraction 30%. Also patient has worsening creatinine up to 3.4, baseline creatinine is 1.1 Patient is tachycardic and hypotensive, he is on pressors. Potassium is low at 2.8, being replaced, creatinine is elevated at 3.4, baseline is around 1.2. Sugar is controlled. WBC is 9.6, hemoglobin 6.8 which is been going on for a f ew days. Objective - Vital Signs Vital signs: Vital Signs Temp 97.2 F L 06/07/19 10:24 Pulse 98 06/07/19 10:24 Resp 18 06/07/19 10:24 BP 104/56 06/07/19 10:24 Pulse Ox 100 06/07/19 10:24 Intake & Output 06/06/19 06/07/19 06/07/19 18:59 06:59 18:59 Intake Total 3744.441 7412 1112.627 Output Total 2160 2375 1340 Balance -521.203 -1077 -227.373 Weight 88.3 kg Intake: IV 520 540 260 0.9 220 240 210 Nafcillin 2 gm In 300 300 50 Dextrose 5% in Water 100 ml @ 50 mls/hr IVPB Q4HR [facility] Rx#:[id number] Intake, IV Titration 918.797 658 232.627 Amount Bumetanide 10 mg In 129.667 100 Dextrose 5% in Water 60 ml @ 1 MG/HR 10 mls/hr IV .Q10H [facility] Rx#:[id number] DOBUTamine DRIP 500 mg In 78.986 250 Dextrose/Water 1 250ml. bag @ 5 MCG/KG/MIN 13.275 mls/hr IV .[id number] [facility] Rx#:[id number] Norepinephrine 8 mg In 310.144 258 82.627 Sodium Chloride 0.9% 250 ml @ 0.05 MCG/KG/MIN 8. 562 mls/hr IV .Q24H [facility] Rx#:[id number] Potassium Chloride 10 meq 50 150 In Water For Injection 1 100ml.bag @ 100 mls/hr IVPB ONCE STA Rx#: [id number] Potassium Chloride 20 meq 400 In Water For Injection 1 100ml.bag @ 50 mls/hr IVPB ONCE ONE Rx#: [id number] Oral 200 100 Blood Product 620 Rc Cpda-1 Unit 310 [id number] Output: Urine 2160 2375 1340 Other: Voiding Method Indwelling Catheter Indwelling Catheter # Bowel Movements 1 - Exam -GENERAL: The patient is drowsy, answers simple questions, not in any acute distress. Thin built and generally weak HEENT: Pupils are round and equally reacting to light. EOMI. No scleral icterus. No conjunctival pallor. Normocephalic, atraumatic. No pharyngeal erythema. No thyromegaly. CARDIOVASCULAR: S1 and S2 present. No murmurs, rubs, or gallops. PULMONARY: Chest is clear to auscultation, no wheezing or crackles. ABDOMEN: Soft, nontender, nondistended, normoactive bowel sounds. No palpable organomegaly. MUSCULOSKELETAL: No joint swelling or deformity. EXTREMITIES: No cyanosis, clubbing, or pedal edema. NEUROLOGICAL: Gross neurological examination did not reveal any focal deficits. SKIN: No rashes. no petechiae. - Labs CBC & Chem 7: 06/07/19 03:44 06/07/19 10:30 Labs: Abnormal Lab Results - Last 24 Hours (Table) 06/07/19 06/07/19 06/07/19 Range/Units 03:44 03:44 06:06 RBC 2.26 L (4.30-5.90) m/uL Hgb 6.8 L* (13.0-17.5) gm/dL Hct 20.1 L (39.0-53.0) % RDW 17.0 H (11.5-15.5) % Plt Count 74 L (150-450) k/uL Neutrophils # 8.7 H (1.3-7.7) k/uL Lymphocytes # 0.5 L (1.0-4.8) k/uL Sodium 133 L (137-145) mmol/L Potassium 2.8 L (3.5-5.1) mmol/L Chloride 95 L (98-107) mmol/L BUN 86 H (9-20) mg/dL Creatinine 3.47 H (0.66-1.25) mg/dL Glucose 130 H (74-99) mg/dL Calcium 7.3 L (8.4-10.2) mg/dL Crossmatch See Detail 06/07/19 Range/Units 10:30 RBC (4.30-5.90) m/uL Hgb (13.0-17.5) gm/dL Hct (39.0-53.0) % RDW (11.5-15.5) % Plt Count (150-450) k/uL Neutrophils # (1.3-7.7) k/uL Lymphocytes # (1.0-4.8) k/uL Sodium (137-145) mmol/L Potassium 3.2 L (3.5-5.1) mmol/L Chloride (98-107) mmol/L BUN (9-20) mg/dL Creatinine (0.66-1.25) mg/dL Glucose (74-99) mg/dL Calcium (8.4-10.2) mg/dL Crossmatch Assessment and Plan Assessment: Infective endocarditis, continue with antibiotics Acute on chronic congestive heart failure Combined Septic and cardiogenic shock secondary to above, continue with pressors as needed Acute kidney injury History of coronary artery disease COPD, not in acute exacerbation GERD Bicytopenia with anemia and thrombocytopenia History of bladder cancer, status post TURP Hyperlipidemia Osteoarthritis Benign prostatic hypertrophy Hypothyroidism Sleep apnea Chronic back pain with herniated disc Generalized weakness Plan: This is a pleasant 79 years old male who presents with septic and cardiogenic shock, he has infective endocarditis. Continue with the current antibiotics. Continue with diuretic. Continue on a pressors as per critical care team recommendations. Follow-up recommendations of nephrology and infectious disease team as well as software manager.Labs and medication were reviewed.. Continue same treatment. Continue with symptomatic treatment. Resume home medication. Monitor lytes and vitals. DVT and GI prophylaxis. Further recommendations of the clinical course of the patient DVT prophylaxis: Subcutaneous heparin GI Prophylaxis: PPI Prognosis is guarded CODE STATUS: DO NOT RESUSCITATE
--- NOTE | 2019-06-07 13:18 | P.PN ---
Subjective Progress Note Date: 06/07/19 On 06/07/2019, the patient is awake and alert and following commands. I that he is already taking is improved. He is currently on 6 L of oxygen by nasal cannula. His breathing comfortably. I'm actually impressed by his response. He is currently on a Bumex drip and is also taking Zaroxolyn. He is producing good amount of urine output. Resume all in status is still positive although it's improved as the patient continues to have diffuse edema and anasarca in lower extremities bilaterally. Nevertheless, he is diuresing well and he is achieving a negative fluid balance. No fever. No chills. Remain on same antibiotic coverage with IV nafcillin. No significant cardiac arrhythmias. No nausea. No vomiting. No abdominal pain. No chest pain. No altered mentation. The patient is dropped hemoglobin again down to 6.8 and the patient will be taken unit of packed RBC. Platelet dropped down to 74. Hemoglobin is going to be repeated after being transferred to the intensive packed RBC. As for the blood work, the BUN is at 86 and the creatinine is improved and is down to 3.47. Potassium level was low at 2.8 and this was replaced and a follow-up levels are still pending for now. Sodium is at 133. Magnesium is at 1.9. The patient is still on norepinephrine infusion at 0.13 g per KG per minute. An outlying catheter will be inserted for aggressive hemodynamic monitoring. He remains on dobutamine at 5 mcg/kg per minute. Rest of the medication remains unchanged. Objective - Vital Signs Vital signs: Vital Signs Temp 96.3 F L 06/07/19 12:00 Pulse 101 H 06/07/19 12:00 Resp 21 06/07/19 12:00 BP 90/63 06/07/19 12:00 Pulse Ox 96 06/07/19 12:00 Intake & Output 06/06/19 06/07/19 06/07/19 18:59 06:59 18:59 Intake Total 9118.572 0072 1202.627 Output Total 2160 2375 1675 Balance -521.203 -1077 -472.373 Weight 88.3 kg 88.3 kg Intake: IV 520 540 350 0.9 220 240 250 Nafcillin 2 gm In 300 300 100 Dextrose 5% in Water 100 ml @ 50 mls/hr IVPB Q4HR [facility] Rx#:[id number] Intake, IV Titration 918.797 658 232.627 Amount Bumetanide 10 mg In 129.667 100 Dextrose 5% in Water 60 ml @ 1 MG/HR 10 mls/hr IV .Q10H [facility] Rx#:[id number] DOBUTamine DRIP 500 mg In 78.986 250 Dextrose/Water 1 250ml. bag @ 5 MCG/KG/MIN 13.275 mls/hr IV .[id number] [facility] Rx#:[id number] Norepinephrine 8 mg In 310.144 258 82.627 Sodium Chloride 0.9% 250 ml @ 0.05 MCG/KG/MIN 8. 562 mls/hr IV .Q24H [facility] Rx#:[id number] Potassium Chloride 10 meq 50 150 In Water For Injection 1 100ml.bag @ 100 mls/hr IVPB ONCE STA Rx#: [id number] Potassium Chloride 20 meq 400 In Water For Injection 1 100ml.bag @ 50 mls/hr IVPB ONCE ONE Rx#: [id number] Oral 200 100 Blood Product 620 Rc Cpda-1 Unit 310 [id number] Output: Urine 2160 2375 1675 Other: Voiding Method Indwelling Catheter Indwelling Catheter # Bowel Movements 1 1 - Exam Gen. appearance fatigued or lethargic and hard to communicate currently on oxy gen at 6 L per minute nasal cannula Head exam was generally normal. There was no scleral icterus or corneal arcus. Mucous membranes were moist. Examination of the neck shows positive JVDs. No goiter or neck masses. No neck stiffness pain and oropharyngeal candidiasis or thrush. Lungs sounds are diminished bilaterally along with some bibasilar crackles. The patient is currently on a Ventimask Heart sounds are regular with a systolic ejection murmur grade 2/6 systolic the precordium. No right ventricular heave or thrill. Abdominal exam revealed normal bowel sounds. The abdomen was soft, non-tender, and without masses, organomegaly, or appreciable enlargement of the abdominal aorta. Extremities reveal +3 edema there is no cyanosis or clubbing. The patient has significant amount of edema in lower extremities bilaterally. Neurologic exam is nonfocal and the patient has no focal neurological deficits. Pupils are equal and reactive to light. Examination of the skin revealed no evidence of significant rashes, suspicious appearing nevi or other concerning lesions. - Labs CBC & Chem 7: 06/07/19 03:44 06/07/19 10:30 Labs: Abnormal Lab Results - Last 24 Hours (Table) 06/07/19 06/07/19 06/07/19 Range/Units 03:44 03:44 06:06 RBC 2.26 L (4.30-5.90) m/uL Hgb 6.8 L* (13.0-17.5) gm/dL Hct 20.1 L (39.0-53.0) % RDW 17.0 H (11.5-15.5) % Plt Count 74 L (150-450) k/uL Neutrophils # 8.7 H (1.3-7.7) k/uL Lymphocytes # 0.5 L (1.0-4.8) k/uL Sodium 133 L (137-145) mmol/L Potassium 2.8 L (3.5-5.1) mmol/L Chloride 95 L (98-107) mmol/L BUN 86 H (9-20) mg/dL Creatinine 3.47 H (0.66-1.25) mg/dL Glucose 130 H (74-99) mg/dL Calcium 7.3 L (8.4-10.2) mg/dL Crossmatch See Detail 06/07/19 Range/Units 10:30 RBC (4.30-5.90) m/uL Hgb (13.0-17.5) gm/dL Hct (39.0-53.0) % RDW (11.5-15.5) % Plt Count (150-450) k/uL Neutrophils # (1.3-7.7) k/uL Lymphocytes # (1.0-4.8) k/uL Sodium (137-145) mmol/L Potassium 3.2 L (3.5-5.1) mmol/L Chloride (98-107) mmol/L BUN (9-20) mg/dL Creatinine (0.66-1.25) mg/dL Glucose (74-99) mg/dL Calcium (8.4-10.2) mg/dL Crossmatch Assessment and Plan Plan: 1 septic shock secondary to MSSA infective endocarditis. The patient has been on IV nafcillin. Patient is still pressor dependent. 2 CHF with systolic heart failure and ejection fraction of 30%, with secondary pulmonary edema and bilateral pleural effusions. The patient is on dobutamine and Bumex drip in addition to Zaroxolyn for improving the fluid overload and volume status. 3 acute hypoxic respiratory failure secondary to acute pulmonary edema secondary decompensated heart failure, clinically improved and the patient is currently down to 6 L about 2 by nasal cannula. 4 hypotension secondary to above, a combination of cardiogenic and septic shock and the patient is on a combination of antibiotics, and pressors. T 5 lactic acidosis improved 6 acute kidney injury secondary to prerenal azotemia/ATN. She is producing adequate amount of urine output in the creatinine is also improved down to 3.47. 7 CHF with systolic heart failure and an ejection fraction of 30-35%, consider underlying ischemic cardiomyopathy 8 COPD with chronic hypoxic and hypercapnic respiratory failure and the patient is demented on oxygen on outpatient basis 9 bladder cancer post-TURB 10 coronary artery disease with previous bypass surgery 11 hypertension 12 hypothyroidism 13 BPH 14 debilitated condition and the patient has a DNR/DNI CODE STATUS 15 anemia, multifactorial and there is a drop in hemoglobin down to 6.8 without any evidence of bleeding Plan Continue supportive care. Continue Bumex drip. Continue Zaroxolyn. Continue dobutamine infusion. Continue on norepinephrine infusion and attempt to wean down the dose. Insert an outlying catheter progressively hemodynamic monitoring to titrate the norepinephrine infusion. Give the patient unit of packed RBC. Monitor hemoglobin. Replace potassium. Advance diet. We'll continue to follow. Prognosis poor baseline above-mentioned comorbidities.
[2019-06-07] MEDS ORDERED: POTASSIUM CHLORIDE 20 MEQ in WATER FOR INJECTION 1 100ML.BAG IVPB STA (14:47)
--- NOTE | 2019-06-07 16:24 | PN ---
PROGRESS NOTE Patient is seen for followup for acute kidney injury, mainly cardiorenal and secondary to sepsis, hypotension, hypoperfusion. Patient remains on Bumex drip and dobutamine drip. He has cardiomyopathy, EF about 25%. Patient also has mitral valve endocarditis. Repeat blood cultures have now been negative. Overall general condition is slightly improved. Renal function is also improved with creatinine down to 3.4 from 3.9 mg/dL yesterday. On examination, blood pressure this morning was 96/59, heart rate of about 101 per minute. Patient is afebrile. EXAMINATION OF THE HEART: S1 and S2. EXAMINATION OF LUNGS: Bilateral breath sounds are heard. ABDOMEN: Soft, non-tender. Examination of lower extremities shows edema 3+ bilaterally. 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 Labs show hemoglobin 6.8, sodium 133, potassium 2.8, BUN 86, serum creatinine 3.47. ASSESSMENT: 1. Acute kidney injury, cardiorenal, previously also secondary to hypotension, sepsis. Renal function is slightly improved from yesterday. Continue with the Bumex drip. Patient is also maintained on dobutamine, which we can continue for now. 2. Chronic hypotension, mostly cardiac. Cortisol was not low. 3. Severe volume overload, slowly improving. 4. Mitral valve endocarditis. Repeat blood cultures negative. It has been MSSA bacteremia. 5. Urinary tract infection. Urine culture growing Klebsiella pneumoniae. Repeat culture was negative. 6. Generalized debility. 7. Anemia with repeated packed RBC transfusions. No active bleeding noted at this time. Patient will be maintained on Aranesp as well. 8. Metabolic acidosis, currently improved. I will discontinue the sodium bicarb, as currently patient is being diuresed and may develop metabolic alkalosis secondary to diuresis. MMODL / IJN: [id number] /
[2019-06-07] MEDS ORDERED: DARBEPOETIN ALFA 60 MCG/0.3 ML SYRINGE SQ SCH (17:00)
--- NOTE | 2019-06-07 17:40 | PN ---
PROGRESS NOTE DATE OF SERVICE: 06/07/2019 REASON FOR FOLLOWUP: MSSA bacteremia secondary to mitral valve endocarditis. INTERVAL HISTORY: The patient is currently afebrile. The patient has been breathing comfortably. He was sitting up in the chair, eating his lunch. Appetite remains poor. No nausea, no vomiting, no abdominal pain or any worsening diarrhea. PHYSICAL EXAMINATION: Blood pressure 111/51 with pulse of 100, temperature 98. He is 98% on 3 L nasal cannula. General description is an elderly male up in the bed in no distress. RESPIRATORY SYSTEM: Unlabored breathing with decreased breath sounds at the base. No wheeze. HEART: S1, S2. Regular rate and rhythm. ABDOMEN: Soft. No tenderness. No guarding or rigidity. LABS: Hemoglobin is 6.8, white count 9.6, BUN of 86, creatinine 3.47. DIAGNOSTIC IMPRESSION AND PLAN: Patient with methicillin-susceptible Staphylococcus aeruginosa bacteremia secondary to mitral valve endocarditis. Patient's follow-up blood culture has been negative. Patient is currently covered with nafcillin; to continue. He did have a PICC line. He will be transitioned to cefazolin on discharge to finish a total of 6-week course of therapy and continue with supportive care. MMODL / IJN: [id number] /
[2019-06-07] MEDS ORDERED: Potassium Replacement Protocol 1 EACH MISC MISCELLANE PRN (20:02)
[2019-06-07] MEDS: SODIUM CHLORIDE 0.9% 1,000 ML IV SCH (20:13)
[2019-06-07] MEDS: MONTELUKAST 10 MG TAB PO SCH (20:40)
[2019-06-07] MEDS: SERTRALINE 50 MG TAB PO SCH (20:40)
[2019-06-08] MEDS: NAFCILLIN 2 GM in DEXTROSE 5% IN WATER 100 ML IVPB SCH ×14 (00:05→23:57)
[2019-06-08] MEDS: POTASSIUM CHLORIDE ER 20 MEQ TAB.ER PO SCH ×3 (00:06→22:06)
[2019-06-08] MEDS: HYDROCORTISONE SUCCINATE 100 MG/2 ML VIAL IV SCH ×3 (00:06→16:55)
[2019-06-08] MEDS: HEPARIN SODIUM,PORCINE 5,000 UNIT/ML 1 ML VIAL SQ SCH ×3 (01:41→15:24)
[2019-06-08 05:50] LABS: Anisocytosis Slight; Basophils % (A) 0 %; Eosinophils % (A) 0 %; HCT 20.5 % (39.0-53.0); HGB 7.1 gm/dL (13.0-17.5); Hypochromasia Slight; Lymphocytes # (A) 0.6 k/uL (1.0-4.8); Lymphocytes % (A) 7 %; MCH 30.4 pg (25.0-35.0); MCHC 34.5 g/dL (31.0-37.0); Mean Platelet Volume 8.2; Monocytes # (A) 0.2 k/uL (0-1.0); Monocytes % (A) 2 %; Neutrophils # (A) 8.3 k/uL (1.3-7.7); Neutrophils % (A) 90 %; Poikilocytosis Slight; RBC 2.33 m/uL (4.30-5.90); WBC 9.2 k/uL (3.8-10.6)
[2019-06-08 05:51] LABS: Platelet Count 48 k/uL (150-450)
[2019-06-08 05:52] LABS: Calcium 7.6 mg/dL (8.4-10.2); Magnesium 1.8 mg/dL (1.6-2.3); Potassium 3.2 mmol/L (3.5-5.1)
[2019-06-08] MEDS: DOBUTamine DRIP 500 MG in DEXTROSE/WATER 1 250ML.BAG IV SCH (06:31)
[2019-06-08] MEDS: LEVOTHYROXINE 112 MCG TAB PO SCH (06:37)
[2019-06-08] MEDS: MIDODRINE 5 MG TAB PO SCH ×3 (06:37→16:55)
[2019-06-08] MEDS: OXYBUTYNIN XL 5 MG TAB.ER.24 PO SCH (08:17)
[2019-06-08] MEDS: METOLAZONE 5 MG TAB PO SCH ×2 (08:17→21:04)
[2019-06-08] MEDS: PANTOPRAZOLE 40 MG TABLET PO SCH (08:18)
[2019-06-08] MEDS: NYSTATIN 100,000 UNIT/ML SUSP 500,000 UNIT/5 ML CUP PO SCH ×4 (08:18→21:03)
[2019-06-08] MEDS: ASPIRIN 81 MG PO SCH (08:18)
[2019-06-08] MEDS: HYDROPHILIC CREAM 180 GM TUBE TOPICAL SCH ×2 (08:18→21:03)
[2019-06-08] MEDS: SODIUM CHLORIDE 0.9% 1,000 ML IV SCH ×2 (08:22→14:38)
[2019-06-08] MEDS: SYMBICORT 160-4.5 MCG INHALER INHALATION SCH ×2 (08:28→20:17)
[2019-06-08] MEDS: IPRATROPIUM-ALBUTEROL 3 ML NEB INHALATION SCH ×3 (08:28→20:17)
[2019-06-08] MEDS: BUMETANIDE 10 MG in DEXTROSE 5% IN WATER 60 ML IV SCH ×4 (09:06→18:37)
[2019-06-08] MEDS: POTASSIUM CHLORIDE 20 MEQ in WATER FOR INJECTION 1 100ML.BAG IVPB SCH ×2 (09:20→11:21)
[2019-06-08] MEDS: CHOLESTYRAMINE (WITH SUGAR) 4 GM PACKET PO SCH ×2 (11:04→17:23)
--- NOTE | 2019-06-08 11:08 | P.PN ---
Subjective Progress Note Date: 06/08/19 Seen and examined for the follow-up of acute kidney injury. 4.5 L of urine output in the last 24 hours. On levophed. No nausea vomiting diarrhea. Very weak to get in and out of the bed. Objective - Vital Signs Vital signs: Vital Signs Temp 97.5 F L 06/08/19 08:00 Pulse 104 H 06/08/19 10:00 Resp 18 06/08/19 10:00 BP 91/50 06/08/19 10:00 Pulse Ox 92 L 06/08/19 10:00 Intake & Output 06/07/19 06/08/19 06/08/19 18:59 06:59 18:59 Intake Total 1634.585 8034.856 190 Output Total 2625 1900 725 Balance -868.167 -799.144 -535 Weight 88.3 kg 85.4 kg Intake: IV 460 540 90 0.9 360 240 40 Nafcillin 2 gm In 100 300 50 Dextrose 5% in Water 100 ml @ 50 mls/hr IVPB Q4HR [facility] Rx#:[id number] Intake, IV Titration 556.833 340.856 100 Amount Bumetanide 10 mg In 98.833 90 100 Dextrose 5% in Water 60 ml @ 1 MG/HR 10 mls/hr IV .Q10H [facility] Rx#:[id number] DOBUTamine DRIP 500 mg In 250 Dextrose/Water 1 250ml. bag @ 5 MCG/KG/MIN 13.275 mls/hr IV .[id number] [facility] Rx#:[id number] Norepinephrine 8 mg In 258.000 0.856 Sodium Chloride 0.9% 250 ml @ 0.05 MCG/KG/MIN 8. 562 mls/hr IV .Q24H [facility] Rx#:[id number] Potassium Chloride 10 meq 150 In Water For Injection 1 100ml.bag @ 100 mls/hr IVPB ONCE STA Rx#: [id number] Potassium Chloride 20 meq 50 In Water For Injection 1 100ml.bag @ 50 mls/hr IVPB ONCE STA Rx#: [id number] Oral 120 220 Blood Product 620 Rc Cpda-1 Unit 310 [id number] Output: Urine 2625 1900 725 Other: Voiding Method Indwelling Catheter Indwelling Catheter Indwelling Catheter # Voids 250 # Bowel Movements 1 - Exam No acute distress S1-S2 heard Decreased breath sounds Edema Magaña - Labs CBC & Chem 7: 06/08/19 05:23 06/08/19 05:23 Labs: Abnormal Lab Results - Last 24 Hours (Table) 06/07/19 06/08/19 06/08/19 Range/Units 18:45 05:23 05:23 RBC 2.33 L (4.30-5.90) m/uL Hgb 7.1 L (13.0-17.5) gm/dL Hct 20.5 L (39.0-53.0) % RDW 17.0 H (11.5-15.5) % Plt Count 48 L (150-450) k/uL Neutrophils # 8.3 H (1.3-7.7) k/uL Lymphocytes # 0.6 L (1.0-4.8) k/uL Sodium 135 L (137-145) mmol/L Potassium 3.1 L 3.2 L (3.5-5.1) mmol/L Chloride 96 L (98-107) mmol/L BUN 87 H (9-20) mg/dL Creatinine 3.56 H (0.66-1.25) mg/dL Glucose 111 H (74-99) mg/dL Calcium 7.6 L (8.4-10.2) mg/dL Albumin (3.5-5.0) g/dL 06/08/19 Range/Units 05:23 RBC (4.30-5.90) m/uL Hgb (13.0-17.5) gm/dL Hct (39.0-53.0) % RDW (11.5-15.5) % Plt Count (150-450) k/uL Neutrophils # (1.3-7.7) k/uL Lymphocytes # (1.0-4.8) k/uL Sodium (137-145) mmol/L Potassium (3.5-5.1) mmol/L Chloride (98-107) mmol/L BUN (9-20) mg/dL Creatinine (0.66-1.25) mg/dL Glucose (74-99) mg/dL Calcium (8.4-10.2) mg/dL Albumin 2.5 L (3.5-5.0) g/dL Assessment and Plan Assessment: #1 nonoliguric acute kidney injury multifactorial secondary to hypotension and cardiorenal syndrome. #2 chronic hypotension most likely underlying cardiomyopathy. #3 volume overload #4 MSSA bacteremia with mitral valve endocarditis. Cultures negative #5 anemia with thrombocytopenia #6 hypokalemia secondary to diuretics. Plan: 1 renal function stable with slight creeping creatinine today. #2 maintain hemodynamic support with pressors and midodrine. #3 continue diuretics with Bumex drip. If renal function continued to worsen de crease metolazone to once daily. 4 avoid nephrotoxic agents and hypotensive episodes.
[2019-06-08] MEDS: MAGNESIUM SULFATE-D5W PMX 1 GM in DEXTROSE/WATER 1 100ML.BAG IVPB SCH ×2 (11:19→12:40)
--- NOTE | 2019-06-08 11:40 | PN ---
PROGRESS NOTE Mr. Pedersen is an 79-year-old male who was diagnosed with multivalvular endocarditis. He presented with septic shock and evidence of congestive heart failure, has evidence of cardiomyopathy. He was hypotensive. He is status post coronary artery bypass grafting. He is requiring vasopressor. He is starting to have good urinary output. He remains awake but quite weak. He denies any chest pain. He continues to be at this time on aspirin 81 mg daily, IV Bumex, IV dobutamine at 5 mcg/kg per minute, metolazone 5 mg twice a day, midodrine. PHYSICAL EXAMINATION: Blood pressure running in the high 80s, low 90s. Heart rate in the 100s. LUNGS: Decreased breath sounds. No wheezes. HEART: S1, S2 with a systolic murmur at the base. No rub. ABDOMEN: Soft, nontender. Positive bowel sounds. No organomegaly. EXTREMITIES: Plus 2 to 3 edema bilaterally. LAB DATA: Lab data revealed a hemoglobin of 7.1, BUN and creatinine of 87 and 3.56, potassium 3.2, sodium 135. IMPRESSION: 1. Staphylococcal sepsis with endocarditis affecting the mitral and the aortic valve. 2. Cardiomyopathy. 3. Status post coronary artery bypass grafting. 4. Chronic kidney disease. 5. Debilitation. 6. Anemia. 7. History of chronic obstructive lung disease. RECOMMENDATIONS: From the cardiac standpoint, will continue supportive care. Unfortunately the prognosis remains quite poor in view of the multi-organ failure. Patient was felt not to be a candidate for any surgical intervention. Will continue supportive care. MMODL / IJN: [id number] /
--- NOTE | 2019-06-08 13:18 | P.PN ---
Subjective This is a pleasant 79 years old male with past medical history of coronary artery disease, heart failure, COPD, GERD, hyperlipidemia, osteoarthritis, benign prostatic hypertrophy, hypothyroidism, sleep apnea on CPAP/BiPAP, chronic back pain with herniated disc. Patient has been in the ICU for several days for septic shock secondary to endocarditis with MSSA, complicated by acute congestive heart failure with ejection fraction 30%. Also patient has worsening creatinine up to 3.4, baseline creatinine is 1.1 Patient is tachycardic and hypotensive, he is on pressors. Potassium is low at 2.8, being replaced, creatinine is elevated at 3.4, baseline is around 1.2. Sugar is controlled. WBC is 9.6, hemoglobin 6.8 which is been going on for a f ew days. 06/08/2019 Patient is with cup and sitting in the chair, he still feels generally weak, his hematocrit was stopped today and his blood pressure is holding up, current blood pressure is 84/66 and biopsies 69, distal and dobutamine drip at 5, he has left- sided PICC line. His hemoglobin is up today to 7.1, creatinine 3.5. Teleprinter Installer evaluation is appreciated Objective - Vital Signs Vital signs: Vital Signs Temp 96.6 F L 06/08/19 12:00 Pulse 102 H 06/08/19 12:00 Resp 21 06/08/19 12:00 BP 75/45 06/08/19 12:00 Pulse Ox 94 L 06/08/19 11:00 Intake & Output 06/07/19 06/08/19 06/08/19 18:59 06:59 18:59 Intake Total 0214.075 7022.856 570 Output Total 2625 1900 1040 Balance -868.167 -799.144 -470 Weight 88.3 kg 85.4 kg Intake: IV 460 540 110 0.9 360 240 60 Nafcillin 2 gm In 100 300 50 Dextrose 5% in Water 100 ml @ 50 mls/hr IVPB Q4HR [facility] Rx#:[id number] Intake, IV Titration 556.833 340.856 400 Amount Bumetanide 10 mg In 98.833 90 100 Dextrose 5% in Water 60 ml @ 1 MG/HR 10 mls/hr IV .Q10H [facility] Rx#:[id number] DOBUTamine DRIP 500 mg In 250 Dextrose/Water 1 250ml. bag @ 5 MCG/KG/MIN 13.275 mls/hr IV .[id number] [facility] Rx#:[id number] Magnesium Sulfate-D5w Pmx 100 1 gm In Dextrose/Water 1 100ml.bag @ 100 mls/hr IVPB Q1H [facility] Rx#: [id number] Norepinephrine 8 mg In 258.000 0.856 Sodium Chloride 0.9% 250 ml @ 0.05 MCG/KG/MIN 8. 562 mls/hr IV .Q24H [facility] Rx#:[id number] Potassium Chloride 10 meq 150 In Water For Injection 1 100ml.bag @ 100 mls/hr IVPB ONCE [facility] Rx#: [id number] Potassium Chloride 20 meq 50 In Water For Injection 1 100ml.bag @ 50 mls/hr IVPB ONCE [facility] Rx#: [id number] Potassium Chloride 20 meq 200 In Water For Injection 1 100ml.bag @ 50 mls/hr IVPB Q2H [facility] Rx#: [id number] Oral 120 220 60 Blood Product 620 Rc Cpda-1 Unit 310 [id number] Output: Urine 2625 1900 1040 Other: Voiding Method Indwelling Catheter Indwelling Catheter Indwelling Catheter # Voids 250 250 # Bowel Movements 1 - Exam -GENERAL: The patient is drowsy, answers simple questions, not in any acute distress. Thin built and generally weak HEENT: Pupils are round and equally reacting to light. EOMI. No scleral icterus. No conjunctival pallor. Normocephalic, atraumatic. No pharyngeal erythema. No thyromegaly. CARDIOVASCULAR: S1 and S2 present. No murmurs, rubs, or gallops. PULMONARY: Chest is clear to auscultation, no wheezing or crackles. ABDOMEN: Soft, nontender, nondistended, normoactive bowel sounds. No palpable organomegaly. MUSCULOSKELETAL: No joint swelling or deformity. EXTREMITIES: No cyanosis, clubbing, or pedal edema. NEUROLOGICAL: Gross neurological examination did not reveal any focal deficits. SKIN: No rashes. no petechiae. - Labs CBC & Chem 7: 06/08/19 05:23 06/08/19 05:23 Labs: Abnormal Lab Results - Last 24 Hours (Table) 06/07/19 06/08/19 06/08/19 Range/Units 18:45 05:23 05:23 RBC 2.33 L (4.30-5.90) m/uL Hgb 7.1 L (13.0-17.5) gm/dL Hct 20.5 L (39.0-53.0) % RDW 17.0 H (11.5-15.5) % Plt Count 48 L (150-450) k/uL Neutrophils # 8.3 H (1.3-7.7) k/uL Lymphocytes # 0.6 L (1.0-4.8) k/uL Sodium 135 L (137-145) mmol/L Potassium 3.1 L 3.2 L (3.5-5.1) mmol/L Chloride 96 L (98-107) mmol/L BUN 87 H (9-20) mg/dL Creatinine 3.56 H (0.66-1.25) mg/dL Glucose 111 H (74-99) mg/dL Calcium 7.6 L (8.4-10.2) mg/dL Albumin (3.5-5.0) g/dL 06/08/19 Range/Units 05:23 RBC (4.30-5.90) m/uL Hgb (13.0-17.5) gm/dL Hct (39.0-53.0) % RDW (11.5-15.5) % Plt Count (150-450) k/uL Neutrophils # (1.3-7.7) k/uL Lymphocytes # (1.0-4.8) k/uL Sodium (137-145) mmol/L Potassium (3.5-5.1) mmol/L Chloride (98-107) mmol/L BUN (9-20) mg/dL Creatinine (0.66-1.25) mg/dL Glucose (74-99) mg/dL Calcium (8.4-10.2) mg/dL Albumin 2.5 L (3.5-5.0) g/dL Assessment and Plan Assessment: Infective endocarditis, continue with antibiotics Acute on chronic congestive heart failure Combined Septic and cardiogenic shock secondary to above, continue with pressors as needed Acute kidney injury History of coronary artery disease COPD, not in acute exacerbation GERD Bicytopenia with anemia and thrombocytopenia History of bladder cancer, status post TURP Hyperlipidemia Osteoarthritis Benign prostatic hypertrophy Hypothyroidism Sleep apnea Chronic back pain with herniated disc Generalized weakness Plan: This is a pleasant 79 years old male who presents with septic and cardiogenic shock, he has infective endocarditis. Continue with the current antibiotics. Continue with diuretic. Continue on a pressors as per critical care team rec ommendations. Follow-up recommendations of nephrology and infectious disease team as well as spool fixer.Labs and medication were reviewed.. Continue same treatment. Continue with symptomatic treatment. Resume home medication. Monitor lytes and vitals. DVT and GI prophylaxis. Further recommendations of the clinical course of the patient DVT prophylaxis: Subcutaneous heparin GI Prophylaxis: PPI Prognosis is guarded CODE STATUS: DO NOT RESUSCITATE
--- NOTE | 2019-06-08 13:51 | P.PN ---
Subjective Progress Note Date: 06/08/19 this morning of 06/08/2019, the patient is still on 6 L of Oxymizer by nasal cannula. Afebrile. No significant tachycardia and a heart rate is in the low 100s. The patient is still on dobutamine and the patient is currently off norepinephrine infusion. He is receiving IV nafcillin regarding his endoc arditis. He is on a Bumex drip at 1 mg an hour addition to Zaroxolyn. His urine output is improved and the patient is producing extra urine output and he is at least 1/2 L of negative fluid balance over the past 24 hours. As the patient was wean off the norepinephrine infusion,he was maintaining his blood pressure until this morning when he acutely dropped his blood pressure down to 75/45. He'll be given IV albumin. His hemoglobin level is at2.5. His BUN is at 87.the creatinine is at 3.5. His hemoglobin is at 7.1. Note that he received 1 units of packed RBC yesterday and hemoglobin remains stable him up from 6.8 up to 7.1. He is otherwise awake and alert. I have seen some improvement in his oral intake compared to yesterday and today before.the platelet count has been fluctuating. He has had thrombocytopenia earlier. 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 Objective - Vital Signs Vital signs: Vital Signs Temp 96.6 F L 06/08/19 12:00 Pulse 99 06/08/19 13:41 Resp 21 06/08/19 12:00 BP 75/45 06/08/19 12:00 Pulse Ox 94 L 06/08/19 11:00 Intake & Output 06/07/19 06/08/19 06/08/19 18:59 06:59 18:59 Intake Total 1254.424 9990.856 680 Output Total 2625 1900 1150 Balance -868.167 -799.144 -470 Weight 88.3 kg 85.4 kg Intake: IV 460 540 120 0.9 360 240 70 Nafcillin 2 gm In 100 300 50 Dextrose 5% in Water 100 ml @ 50 mls/hr IVPB Q4HR [facility] Rx#:[id number] Intake, IV Titration 556.833 340.856 500 Amount Bumetanide 10 mg In 98.833 90 100 Dextrose 5% in Water 60 ml @ 1 MG/HR 10 mls/hr IV .Q10H [facility] Rx#:[id number] DOBUTamine DRIP 500 mg In 250 Dextrose/Water 1 250ml. bag @ 5 MCG/KG/MIN 13.275 mls/hr IV .[id number] [facility] Rx#:[id number] Magnesium Sulfate-D5w Pmx 200 1 gm In Dextrose/Water 1 100ml.bag @ 100 mls/hr IVPB Q1H [facility] Rx#: [id number] Norepinephrine 8 mg In 258.000 0.856 Sodium Chloride 0.9% 250 ml @ 0.05 MCG/KG/MIN 8. 562 mls/hr IV .Q24H [facility] Rx#:[id number] Potassium Chloride 10 meq 150 In Water For Injection 1 100ml.bag @ 100 mls/hr IVPB ONCE [facility] Rx#: [id number] Potassium Chloride 20 meq 50 In Water For Injection 1 100ml.bag @ 50 mls/hr IVPB ONCE [facility] Rx#: [id number] Potassium Chloride 20 meq 200 In Water For Injection 1 100ml.bag @ 50 mls/hr IVPB Q2H [facility] Rx#: [id number] Oral 120 220 60 Blood Product 620 Rc Cpda-1 Unit 310 [id number] Output: Urine 2625 1900 1150 Other: Voiding Method Indwelling Catheter Indwelling Catheter Indwelling Catheter # Voids 250 250 # Bowel Movements 1 - Exam Gen. appearance fatigued or lethargic and hard to communicate currently on oxygen at 6 L per minute nasal cannula Head exam was generally normal. There was no scleral icterus or corneal arcus. Mucous membranes were moist. Examination of the neck shows positive JVDs. No goiter or neck masses. No neck stiffness pain and oropharyngeal candidiasis or thrush. Lungs sounds are diminished bilaterally along with some bibasilar crackles. The patient is currently on a Ventimask Heart sounds are regular with a systolic ejection murmur grade 2/6 systolic the precordium. No right ventricular heave or thrill. Abdominal exam revealed normal bowel sounds. The abdomen was soft, non-tender, and without masses, organomegaly, or appreciable enlargement of the abdominal aorta. Extremities reveal +3 edema there is no cyanosis or clubbing. The patient has significant amount of edema in lower extremities bilaterally. Neurologic exam is nonfocal and the patient has no focal neurological deficits. Pupils are equal and reactive to light. Examination of the skin revealed no evidence of significant rashes, suspicious appearing nevi or other concerning lesions. - Labs CBC & Chem 7: 06/08/19 05:23 06/08/19 05:23 Labs: Abnormal Lab Results - Last 24 Hours (Table) 06/07/19 06/08/19 06/08/19 Range/Units 18:45 05:23 05:23 RBC 2.33 L (4.30-5.90) m/uL Hgb 7.1 L (13.0-17.5) gm/dL Hct 20.5 L (39.0-53.0) % RDW 17.0 H (11.5-15.5) % Plt Count 48 L (150-450) k/uL Neutrophils # 8.3 H (1.3-7.7) k/uL Lymphocytes # 0.6 L (1.0-4.8) k/uL Sodium 135 L (137-145) mmol/L Potassium 3.1 L 3.2 L (3.5-5.1) mmol/L Chloride 96 L (98-107) mmol/L BUN 87 H (9-20) mg/dL Creatinine 3.56 H (0.66-1.25) mg/dL Glucose 111 H (74-99) mg/dL Calcium 7.6 L (8.4-10.2) mg/dL Albumin (3.5-5.0) g/dL 06/08/19 Range/Units 05:23 RBC (4.30-5.90) m/uL Hgb (13.0-17.5) gm/dL Hct (39.0-53.0) % RDW (11.5-15.5) % Plt Count (150-450) k/uL Neutrophils # (1.3-7.7) k/uL Lymphocytes # (1.0-4.8) k/uL Sodium (137-145) mmol/L Potassium (3.5-5.1) mmol/L Chloride (98-107) mmol/L BUN (9-20) mg/dL Creatinine (0.66-1.25) mg/dL Glucose (74-99) mg/dL Calcium (8.4-10.2) mg/dL Albumin 2.5 L (3.5-5.0) g/dL Assessment and Plan Plan: 1 septic shock secondary to MSSA infective endocarditis. The patient has been on IV nafcillin. Pthe patient was weaned off pressors. Earlier this morning he was on no inotropes other than dobutamine. He was started receiving Bumex drip with excellent urine output and mobilizing his excessive fluid as the patient continues to have significant amount of edema in lower extremity is bilaterally. Nevertheless, he acutely dropped his blood pressure. He'll be given IV albumin and he'll be also utilizing norepinephrine infusion after blood pressure continues to be low. He remains on IV nafcillin regarding his endocarditis. 2 CHF with systolic heart failure and ejection fraction of 30%, with secondary pulmonary edema and bilateral pleural effusions. The patient is on dobutamine and Bumex drip in addition to Zaroxolyn for improving the fluid overload and volume status. 3 acute hypoxic respiratory failure secondary to acute pulmonary edema secondary decompensated heart failure, clinically improved and the patient is currently down to 6 L about 2 by nasal cannula. 4 hypotension secondary to above, a combination of cardiogenic and septic shock and the patient is on a combination of antibiotics, and pressors. 5 lactic acidosis improved 6 acute kidney injury secondary to prerenal azotemia/ATN. She is producing adequate amount of urine output iAnd the patient remains in negative fluid balance. Creatinine is stable compared to yesterday. 7 CHF with systolic heart failure and an ejection fraction of 30-35%, consider underlying ischemic cardiomyopathy 8 COPD with chronic hypoxic and hypercapnic respiratory failure and the patient is demented on oxygen on outpatient basis 9 bladder cancer post-TURB 10 coronary artery disease with previous bypass surgery 11 hypertension 12 hypothyroidism 13 BPH 14 debilitated condition and the patient has a DNR/DNI CODE STATUS 15 anemia, multifactorial received a unit of packed RBC yesterday and hemoglobin is up to 7.1. Plan Continue supportive care. Continue Bumex drip. Continue Zaroxolyn. Continue dobutamine infusion. IV albumin. May need norepinephrine infusion if the blood pressure continues to be low. We'll like to give this patient some colloids to improve.cardiac pressure and the blood pressure in general. This may also help with the diuresis. Continue the Bumex drip. Continue Zaroxolyn. Continue dobutamine. We'll continue to follow. we'll continue to monitor and make further recommendations based on his progress. Long-term prognosis poor despite some limited improvement is worsening in this patient. Repeat chest x-ray in the morning. Wean down the FiO2 as tolerated to maintain a saturation above 90%. Continue the IV nafcillin. Monitor the platelet count. We'll follow.
[2019-06-08] MEDS: ALBUMIN HUMAN 5% 250 ML in EMPTY BAG 1 BAG IVPB SCH ×2 (13:54→23:57)
--- NOTE | 2019-06-08 15:04 | PN ---
PROGRESS NOTE DATE OF SERVICE: 06/08/2019 REASON FOR FOLLOWUP: MSSA mitral valve endocarditis. INTERVAL HISTORY: The patient is currently afebrile. The patient is breathing comfortably. Denies having any chest pain or cough. No nausea, no vomiting and no worsening diarrhea reported by nursing staff. PHYSICAL EXAMINATION: Blood pressure is 80/59 with a pulse of 101, temperature 96.6. He is 94% on 6 L high- flow oxygen. General description is an elderly male up in the chair in no distress. RESPIRATORY SYSTEM: Unlabored breathing with decreased breath sounds at the base. No wheeze. HEART: S1, S2. Regular rate and rhythm. ABDOMEN: Soft. No tenderness. LABS: Hemoglobin 7.1, white count 9.2, BUN of 37, creatinine 3.56. 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 The patient is currently covered with nafcillin. He did have multi- organ failure. Overall poor prognosis. Monitor his clinical course closely. Continue with supportive care. MMODL / IJN: [id number] /
[2019-06-08 15:07] LABS: Magnesium 2.4 mg/dL (1.6-2.3); Potassium 3.2 mmol/L (3.5-5.1)
[2019-06-08] MEDS ORDERED: HEPARIN SODIUM,PORCINE 5,000 UNIT/ML 1 ML VIAL SQ SCH (21:00)
[2019-06-08] MEDS: MONTELUKAST 10 MG TAB PO SCH (21:04)
[2019-06-08] MEDS: SERTRALINE 50 MG TAB PO SCH (21:04)
[2019-06-09] MEDS: HYDROCORTISONE SUCCINATE 100 MG/2 ML VIAL IV SCH ×4 (00:05→23:46)
[2019-06-09] MEDS: POTASSIUM CHLORIDE ER 20 MEQ TAB.ER PO SCH ×2 (01:56→04:05)
[2019-06-09] MEDS: NAFCILLIN 2 GM in DEXTROSE 5% IN WATER 100 ML IVPB SCH ×12 (04:05→23:46)
[2019-06-09] MEDS: BUMETANIDE 10 MG in DEXTROSE 5% IN WATER 60 ML IV SCH ×4 (04:43→15:16)
[2019-06-09 05:32] LABS: Calcium 7.9 mg/dL (8.4-10.2); Magnesium 2.2 mg/dL (1.6-2.3); Potassium 2.9 mmol/L (3.5-5.1)
[2019-06-09 05:43] LABS: Anisocytosis Slight; Basophils % (A) 0 %; Eosinophils % (A) 0 %; Hypochromasia Slight; Lymphocytes # (A) 0.4 k/uL (1.0-4.8); Lymphocytes % (A) 6 %; MCH 29.2 pg (25.0-35.0); MCHC 34.2 g/dL (31.0-37.0); MCV 85.5 fL (80.0-100.0); Mean Platelet Volume 7.8; Monocytes # (A) 0.1 k/uL (0-1.0); Monocytes % (A) 2 %; Neutrophils # (A) 7.1 k/uL (1.3-7.7); Neutrophils % (A) 92 %; Poikilocytosis Slight; RBC 1.92 m/uL (4.30-5.90); RDW 17.7 % (11.5-15.5); WBC 7.7 k/uL (3.8-10.6)
[2019-06-09 05:49] LABS: HGB 5.6 gm/dL (13.0-17.5); Platelet Count 40 k/uL (150-450)
[2019-06-09 05:50] LABS: HCT 16.4 % (39.0-53.0)
[2019-06-09] MEDS: MIDODRINE 5 MG TAB PO SCH ×3 (06:29→15:51)
[2019-06-09] MEDS: LEVOTHYROXINE 112 MCG TAB PO SCH (06:29)
[2019-06-09] MEDS: POTASSIUM CHLORIDE 20 MEQ in WATER FOR INJECTION 1 100ML.BAG IVPB SCH ×2 (06:37→11:28)
[2019-06-09] MEDS ORDERED: POTASSIUM CHLORIDE ER 20 MEQ TAB.ER PO SCH (07:00)
[2019-06-09] MEDS: DOBUTamine DRIP 500 MG in DEXTROSE/WATER 1 250ML.BAG IV SCH (07:23)
[2019-06-09] MEDS: IPRATROPIUM-ALBUTEROL 3 ML NEB INHALATION SCH ×3 (08:19→19:04)
[2019-06-09] MEDS: SYMBICORT 160-4.5 MCG INHALER INHALATION SCH ×2 (08:19→19:04)
--- NOTE | 2019-06-09 08:28 | P.PN ---
Subjective Progress Note Date: 06/09/19 On 06/09/2019, I'm seeing this patient for a follow-up. The patient is still struggling as the patient is being treated for infective endocarditis, a bibasilar infection with staph and the patient is currently on IV nafcillin. The patient is on 6 L of oxygen by nasal cannula. He was in full-blown dec ompensated heart failure. He was treated with a combination of dobutamine and he was given pressors in the form of norepinephrine infusion, IV Bumex. He improved. Pressors have been discontinued for now with exception of dobutamine still being used for augmentation of the cardiac output. The patient is still a Bumex drip at 1 mg an hour. I have noticed considerable amount of improvement in his urine output over the past 48 hours and the patient's lower extremity edema is improving and the renal function is slowly improving also. He is also on Zaroxolyn. Nevertheless, this morning, the patient developed a drop in hemoglobin down to 5.6. He did also have a melanotic stool. Suspect upper GI bleeding. Note that hemoglobin are not was dropping throughout the past week. The patient received 2 units of packed RBC for hemoglobin of less than 7. For now, the patient will receive a total of 2 units of RBC. His platelet counts have been dropping and this has been a multifactorial event. The patient is on aspirin. Subcu heparin has been discontinued. He is on nafcillin. The thro mbocytopenia could be also consumptive. Nevertheless, despite this all events, he is holding his own blood pressure and there has been no significant hypotension. No chest pain. No nausea vomiting. Mental status is gradually improving. He was able to follow commands and answering questions appropriately on today's evaluation. No previous history of GI bleed. His most recent platelet count is at 40,000 slightly lower compared to yesterday. Objective - Vital Signs Vital signs: Vital Signs Temp 97.5 F L 06/09/19 07:42 Pulse 96 06/09/19 07:42 Resp 17 06/09/19 07:42 BP 92/61 06/09/19 07:42 Pulse Ox 95 06/09/19 07:42 Intake & Output 06/08/19 06/09/19 06/09/19 18:59 06:59 18:59 Intake Total 7835.733 9628 60 Output Total 2185 2360 250 Balance -899.833 -1150 -190 Weight 80.6 kg Intake: IV 380 460 10 0.9 130 160 10 Nafcillin 2 gm In 250 300 Dextrose 5% in Water 100 ml @ 50 mls/hr IVPB Q4HR [facility] Rx#:[id number] Intake, IV Titration 845.167 600 50 Amount Albumin Human 5% 250 ml 250 250 In Empty Bag 1 bag @ 250 mls/hr IVPB Q8HR [facility] Rx#: [id number] Bumetanide 10 mg In 195.167 100 Dextrose 5% in Water 60 ml @ 1 MG/HR 10 mls/hr IV .Q10H [facility] Rx#:[id number] DOBUTamine DRIP 500 mg In 250 Dextrose/Water 1 250ml. bag @ 5 MCG/KG/MIN 13.275 mls/hr IV .[id number] [facility] Rx#:[id number] Magnesium Sulfate-D5w Pmx 200 1 gm In Dextrose/Water 1 100ml.bag @ 100 mls/hr IVPB Q1H [facility] Rx#: [id number] Potassium Chloride 20 meq 200 50 In Water For Injection 1 100ml.bag @ 50 mls/hr IVPB Q2H [facility] Rx#: [id number] Oral 60 150 Blood Product 0 Rc As-1 Unit 0 [id number] Output: Urine 2185 2260 250 Stool 100 Other: Voiding Method Indwelling Catheter Indwelling Catheter # Voids 250 # Bowel Movements 1 - Exam Gen. appearance fatigued or lethargic and hard to communicate currently on oxygen at 6 L per minute nasal cannula Head exam was generally normal. There was no scleral icterus or corneal arcus. Mucous membranes were moist. Examination of the neck shows positive JVDs. No goiter or neck masses. No neck stiffness pain and oropharyngeal candidiasis or thrush. Lungs sounds are diminished bilaterally along with some bibasilar crackles. The patient is currently on a Ventimask Heart sounds are regular with a systolic ejection murmur grade 2/6 systolic the precordium. No right ventricular heave or thrill. Abdominal exam revealed normal bowel sounds. The abdomen was soft, non-tender, and without masses, organomegaly, or appreciable enlargement of the abdominal aorta. Extremities reveal +3 edema there is no cyanosis or clubbing. The patient has significant amount of edema in lower extremities bilaterally. Neurologic exam is nonfocal and the patient has no focal neurological deficits. Pupils are equal and reactive to light. Examination of the skin revealed no evidence of significant rashes, suspicious appearing nevi or other concerning lesions. - Labs CBC & Chem 7: 06/09/19 05:15 06/09/19 05:15 Labs: Abnormal Lab Results - Last 24 Hours (Table) 06/07/19 06/08/19 06/08/19 Range/Units 06:06 05:23 14:45 RBC (4.30-5.90) m/uL Hgb (13.0-17.5) gm/dL Hct (39.0-53.0) % RDW (11.5-15.5) % Plt Count (150-450) k/uL Lymphocytes # (1.0-4.8) k/uL Sodium (137-145) mmol/L Potassium 3.2 L (3.5-5.1) mmol/L Chloride (98-107) mmol/L BUN (9-20) mg/dL Creatinine (0.66-1.25) mg/dL Glucose (74-99) mg/dL Calcium (8.4-10.2) mg/dL Magnesium 2.4 H (1.6-2.3) mg/dL Albumin 2.5 L (3.5-5.0) g/dL Crossmatch See Detail 06/08/19 06/09/19 06/09/19 Range/Units 23:35 05:15 05:15 RBC 1.92 L (4.30-5.90) m/uL Hgb 5.6 L* D (13.0-17.5) gm/dL Hct 16.4 L* (39.0-53.0) % RDW 17.7 H (11.5-15.5) % Plt Count 40 L (150-450) k/uL Lymphocytes # 0.4 L (1.0-4.8) k/uL Sodium 135 L (137-145) mmol/L Potassium 2.8 L 2.9 L (3.5-5.1) mmol/L Chloride 93 L (98-107) mmol/L BUN 84 H (9-20) mg/dL Creatinine 3.50 H (0.66-1.25) mg/dL Glucose 141 H (74-99) mg/dL Calcium 7.9 L (8.4-10.2) mg/dL Magnesium (1.6-2.3) mg/dL Albumin (3.5-5.0) g/dL Crossmatch Assessment and Plan Plan: 1 septic shock secondary to MSSA infective endocarditis. The patient has been on IV nafcillin. The patient has bi valvular endocarditis 2 CHF with systolic heart failure and ejection fraction of 30%, with secondary pulmonary edema and bilateral pleural effusions. The patient is on dobutamine and Bumex drip in addition to Zaroxolyn for improving the fluid overload and volume status. 3 acute hypoxic respiratory failure secondary to acute pulmonary edema secondary decompensated heart failure, clinically improved and the patient is currently down to 6 L by nasal cannula. 4 hypotension secondary to above, a combination of cardiogenic and septic shock and improved and the patient has been weaned off the pressors. 5 acute blood loss anemia secondary to GI bleed. Hemoglobin is down to 5.6 and the patient receiving packed RBC transfusion. 6 acute kidney injury secondary to prerenal azotemia/ATN. She is producing adequate amount of urine output the urine output has picked up and the patient is a negative fluid balance. He continues to produce good urine output.. Creatinine is stable compared to yesterday.The patient's urine output has picked up with a combination of Zaroxolyn and Bumex and this will be continued. This will be continued in conjunction with a dobutamine. 7 CHF with systolic heart failure and an ejection fraction of 30-35%, consider underlying ischemic cardiomyopathy 8 COPD with chronic hypoxic and hypercapnic respiratory failure and the patient is demented on oxygen on outpatient basis 9 bladder cancer post-TURB 10 coronary artery disease with previous bypass surgery 11 hypertension 12 hypothyroidism 13 BPH 14 debilitated condition and the patient has a DNR/DNI CODE STATUS 15 anemia, multifactorial received a unit of packed RBC yesterday and hemoglobin is up to 7.1. 16 thrombocytopenia, consumptive versus drug induced. Plan Continue supportive care. Continue Bumex drip. Continue Zaroxolyn. Continue dobutamine infusion. The patient had total of 2 units of packed RBC. Stop the aspirin. Stop subcu heparin. Monitor platelet count. GI consultation. CBC every 6 hours. Continue the Bumex. Continue the rest of the supportive care. Long-term prognosis poor baseline above-mentioned comorbidities.
[2019-06-09] MEDS: HYDROPHILIC CREAM 180 GM TUBE TOPICAL SCH ×2 (08:43→20:33)
[2019-06-09] MEDS: PANTOPRAZOLE 40 MG/10 ML VIAL IVP SCH ×2 (08:44→20:32)
[2019-06-09] MEDS: OXYBUTYNIN XL 5 MG TAB.ER.24 PO SCH (08:45)
[2019-06-09] MEDS: METOLAZONE 5 MG TAB PO SCH ×2 (08:45→20:33)
[2019-06-09] MEDS: NYSTATIN 100,000 UNIT/ML SUSP 500,000 UNIT/5 ML CUP PO SCH ×4 (08:45→20:33)
[2019-06-09] MEDS ORDERED: PANTOPRAZOLE 40 MG/10 ML VIAL IVP SCH (09:00)
[2019-06-09] MEDS: ALBUMIN HUMAN 5% 250 ML in EMPTY BAG 1 BAG IVPB SCH (09:48)
--- NOTE | 2019-06-09 10:06 | P.PN ---
Subjective Progress Note Date: 06/09/19 Seen and examined for the follow-up of acute kidney injury. 4.5 L of urine output in the last 24 hours. No nausea vomiting or diarrhea. Persistent low hemoglobin with thrombocytopenia, no active bleeding. Objective - Vital Signs Vital signs: Vital Signs Temp 96.9 F L 06/09/19 09:45 Pulse 90 06/09/19 09:45 Resp 15 06/09/19 09:45 BP 89/70 06/09/19 09:45 Pulse Ox 97 06/09/19 09:45 Intake & Output 06/08/19 06/09/19 06/09/19 18:59 06:59 18:59 Intake Total 9790.429 8266 530 Output Total 2185 2360 750 Balance -899.833 -1150 -220 Weight 80.6 kg Intake: IV 380 460 170 0.9 130 160 20 Nafcillin 2 gm In 250 300 50 Dextrose 5% in Water 100 ml @ 50 mls/hr IVPB Q4HR [facility] Rx#:[id number] Potassium Chloride 20 meq 100 In Water For Injection 1 100ml.bag @ 50 mls/hr IVPB Q2H [facility] Rx#: [id number] Intake, IV Titration 845.167 600 50 Amount Albumin Human 5% 250 ml 250 250 In Empty Bag 1 bag @ 250 mls/hr IVPB Q8HR [facility] Rx#: [id number] Bumetanide 10 mg In 195.167 100 Dextrose 5% in Water 60 ml @ 1 MG/HR 10 mls/hr IV .Q10H [facility] Rx#:[id number] DOBUTamine DRIP 500 mg In 250 Dextrose/Water 1 250ml. bag @ 5 MCG/KG/MIN 13.275 mls/hr IV .[id number] [facility] Rx#:[id number] Magnesium Sulfate-D5w Pmx 200 1 gm In Dextrose/Water 1 100ml.bag @ 100 mls/hr IVPB Q1H [facility] Rx#: [id number] Potassium Chloride 20 meq 200 50 In Water For Injection 1 100ml.bag @ 50 mls/hr IVPB Q2H [facility] Rx#: [id number] Oral 60 150 Blood Product 0 310 Rc As-1 Unit 0 310 [id number] Output: Urine 2185 2260 750 Stool 100 Other: Voiding Method Indwelling Catheter Indwelling Catheter # Voids 250 # Bowel Movements 1 - Exam No acute distress S1-S2 heard Decreased breath sounds Edema Magaña - Labs CBC & Chem 7: 06/09/19 05:15 06/09/19 05:15 Labs: Abnormal Lab Results - Last 24 Hours (Table) 06/07/19 06/08/19 06/08/19 Range/Units 06:06 05:23 14:45 RBC (4.30-5.90) m/uL Hgb (13.0-17.5) gm/dL Hct (39.0-53.0) % RDW (11.5-15.5) % Plt Count (150-450) k/uL Lymphocytes # (1.0-4.8) k/uL Sodium (137-145) mmol/L Potassium 3.2 L (3.5-5.1) mmol/L Chloride (98-107) mmol/L BUN (9-20) mg/dL Creatinine (0.66-1.25) mg/dL Glucose (74-99) mg/dL Calcium (8.4-10.2) mg/dL Magnesium 2.4 H (1.6-2.3) mg/dL Albumin 2.5 L (3.5-5.0) g/dL Crossmatch See Detail 06/08/19 06/09/19 06/09/19 Range/Units 23:35 05:15 05:15 RBC 1.92 L (4.30-5.90) m/uL Hgb 5.6 L* D (13.0-17.5) gm/dL Hct 16.4 L* (39.0-53.0) % RDW 17.7 H (11.5-15.5) % Plt Count 40 L (150-450) k/uL Lymphocytes # 0.4 L (1.0-4.8) k/uL Sodium 135 L (137-145) mmol/L Potassium 2.8 L 2.9 L (3.5-5.1) mmol/L Chloride 93 L (98-107) mmol/L BUN 84 H (9-20) mg/dL Creatinine 3.50 H (0.66-1.25) mg/dL Glucose 141 H (74-99) mg/dL Calcium 7.9 L (8.4-10.2) mg/dL Magnesium (1.6-2.3) mg/dL Albumin (3.5-5.0) g/dL Crossmatch Assessment and Plan Assessment: #1 nonoliguric acute kidney injury multifactorial secondary to hypotension and cardiorenal syndrome. -With anemia and thrombocytopenia there is a possibility of TTP. But this is going on for 20 days. Doubt it is. #2 chronic hypotension most likely underlying cardiomyopathy. #3 volume overload #4 MSSA bacteremia with mitral valve endocarditis. Cultures negative #5 anemia with thrombocytopenia #6 hypokalemia secondary to diuretics. Plan: 1 renal function stable. #2 maintain hemodynamic support with pressors and midodrine. #3 continue diuretics with Bumex drip. If renal function continued to worsen decrease metolazone to once daily. 4 avoid nephrotoxic agents and hypotensive episodes.
--- NOTE | 2019-06-09 10:33 | PN ---
PROGRESS NOTE Mr. 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 He is awake, confused at times. Hemodynamically, he continues to be on vasopressor. He has no evidence of malignant arrhythmia. His urine output has been stable. He continues to be on IV dobutamine as well as IV Bumex. He has a known history of cardiomyopathy. He was felt not to be a candidate for surgical intervention. He was noted to have significant anemia today with no clear source, most likely GI. He continues to be on 5 mics per kg per minute of IV dobutamine, IV Bumex at 20 mg an hour and metolazone 5 mg twice a day. PHYSICAL EXAMINATION: Blood pressure running in the 100s with a heart rate in the 90s. LUNGS: Clear anteriorly. HEART S1-S2 with a systolic murmur at the base and a systolic murmur at the apex. No rub. ABDOMEN: Soft, nontender. Positive bowel sounds. No organomegaly. EXTREMITIES: +2 edema bilaterally. LAB DATA: Lab data revealed a hemoglobin down to 5.6, white blood cell of 7.7, platelet count of 40,000. BUN and creatinine of 84 and 3.5, potassium 2.9, sodium 135. He is heme positive. IMPRESSION: 1. Multivalvular endocarditis. 2. Anemia, severe, being transfused. 3. History of coronary artery bypass grafting. 4. Severe cardiomyopathy. 5. Chronic kidney disease. 6. Chronic obstructive lung disease. 7. Evidence of thrombocytopenia. RECOMMENDATIONS: From the cardiac standpoint, we will continue supportive care. The patient is receiving transfusion. We will continue IV dobutamine for now. Unfortunately prognosis remains quite guarded. His oral intake has been limited but the patient has pulled his Dobbhoff feeding tube in the past. MMODL / IJN: [id number] /
[2019-06-09] MEDS: CHOLESTYRAMINE (WITH SUGAR) 4 GM PACKET PO SCH ×2 (11:28→18:03)
[2019-06-09] MEDS: ACETAMINOPHEN TAB 325 MG TAB PO PRN (11:47)
--- NOTE | 2019-06-09 13:43 | P.PN ---
Subjective This is a pleasant 79 years old male with past medical history of coronary artery disease, heart failure, COPD, GERD, hyperlipidemia, osteoarthritis, benign prostatic hypertrophy, hypothyroidism, sleep apnea on CPAP/BiPAP, chronic back pain with herniated disc. Patient has been in the ICU for several days for septic shock secondary to endocarditis with MSSA, complicated by acute congestive heart failure with ejection fraction 30%. Also patient has worsening creatinine up to 3.4, baseline creatinine is 1.1 Patient is tachycardic and hypotensive, he is on pressors. Potassium is low at 2.8, being replaced, creatinine is elevated at 3.4, baseline is around 1.2. Sugar is controlled. WBC is 9.6, hemoglobin 6.8 which is been going on for a f ew days. 06/08/2019 Patient is with cup and sitting in the chair, he still feels generally weak, his hematocrit was stopped today and his blood pressure is holding up, current blood pressure is 84/66 and biopsies 69, distal and dobutamine drip at 5, he has left- sided PICC line. His hemoglobin is up today to 7.1, creatinine 3.5. Boiler Erector evaluation is appreciated 06/09/2019 Patient is resting in bed not in distress however he looks more lethargic today. He is afebrile however his blood pressure is 120/72 and slightly tachycardic at 100 bpm, patient today has adequate a drop in his hemoglobin down from 7.10 to 5.6, patient remains in the ICU because of his physical conditions and they get into units of blood transfusion. Potassium is also on the low side with 2.9 was coming to be replaced, low sodium at 135. Creatinine is still elevated at 3.5. Albumin was started yesterday and today he was started on Protonix twice daily. Review of systems CONSTITUTIONAL: No fever, no malaise, no fatigue. HEENT: No recent visual problems or hearing problems. Denied any sore throat. CARDIOVASCULAR: No orthopnea, PND, no palpitations, no syncope. PULMONARY: no cough, no hemoptysis. GASTROINTESTINAL: No diarrhea, no nausea, no vomiting, no abdominal pain. Normoactive bowel sounds. NEUROLOGICAL: No headaches, no weakness, no numbness. HEMATOLOGICAL: Denies any bleeding or petechiae. GENITOURINARY: Denies any burning micturition, frequency, or urgency. MUSCULOSKELETAL/RHEUMATOLOGICAL: Denies any joint pain, swelling, or any muscle pain. ENDOCRINE: Denies any polyuria or polydipsia. Active Medications Acetaminophen (Tylenol Tab) 650 mg PO Q4HR PRN PRN Reason: Fever and/or Mild Pain Last Admin: 06/09/19 11:47 Dose: 650 mg Documented by: Albuterol/Ipratropium (Duoneb 0.5 Mg-3 Mg/3 Ml Soln) 3 ml INHALATION RT-TID [facility] Last Admin: 06/09/19 13:33 Dose: 3 ml Documented by: Budesonide/Formoterol Fumarate (Symbicort 160-4.5 Mcg Inhaler) 2 puff INHALATION RT-BID [facility] Last Admin: 06/09/19 08:19 Dose: 2 puff Documented by: Cholestyramine Resin (Questran) 4 gm PO BID@1000,1800 [facility] Last Admin: 06/09/19 11:28 Dose: 4 gm Documented by: Darbepoetin Cyrus (Aranesp) 60 mcg SQ Q7D [facility] Last Admin: 06/07/19 18:19 Dose: 60 mcg Documented by: Hydrocortisone Sodium Succinate (Solu-Cortef) 50 mg IV Q8HR [facility] Last Admin: 06/09/19 08:43 Dose: 50 mg Documented by: Nafcillin Sodium 2 gm/ (Dextrose/Water) 100 mls @ 50 mls/hr IVPB Q4HR [facility] Last Admin: 06/09/19 12:41 Dose: 50 mls/hr Documented by: Sodium Chloride (Saline 0.9%) 1,000 mls @ 20 mls/hr IV .Q24H [facility] Last Admin: 06/08/19 14:38 Dose: 20 mls/hr Documented by: Dobutamine HCl/Dextrose 500 mg (/ IV Solution) 250 mls @ 13.275 mls/hr IV .[id number] [facility] Last Admin: 06/09/19 07:23 Dose: 5 mcg/kg/min, 13.275 mls/hr Documented by: Norepinephrine Bitartrate 8 mg (/ Sodium Chloride) 258 mls @ 8.562 mls/hr IV .Q24H [facility]; Protocol Last Titration: 06/07/19 20:15 Dose: 0 mcg/kg/min, 0 mls/hr Documented by: Bumetanide 10 mg/ Dextrose/ (Water) 100 mls @ 10 mls/hr IV .Q10H [facility] Last Admin: 06/09/19 04:43 Dose: 1 mg/hr, 10 mls/hr Documented by: Albumin Human 250 ml/ IV (Solution) 250 mls @ 250 mls/hr IVPB Q8HR [facility] Last Admin: 06/09/19 09:48 Dose: 250 mls/hr Documented by: Levothyroxine Sodium (Synthroid) 112 mcg PO DAILY@0630 [facility] Last Admin: 06/09/19 06:29 Dose: 112 mcg Documented by: Metolazone (Zaroxolyn) 5 mg PO BID [facility] Last Admin: 06/09/19 08:45 Dose: 5 mg Documented by: Midodrine (Proamatine) 10 mg PO TID@0700,1100,1600 [facility] Last Admin: 06/09/19 11:30 Dose: 10 mg Documented by: Miscellaneous Information (Magnesium Per Protocol) 1 each MISCELLANE DAILY PRN; Protocol PRN Reason: Per Protocol Miscellaneous Information (Potassium Per Protocol) 1 each MISCELLANE DAILY PRN; Protocol PRN Reason: Per Protocol Montelukast Sodium (Singulair) 10 mg PO [facility] Last Admin: 06/08/19 21:04 Dose: 10 mg Documented by: Multi-Ingred Cream/Lotion/Oil/Oint (Triad Cream) 1 applic TOPICAL Q12HR [facility] Last Admin: 06/09/19 08:43 Dose: 1 applic Documented by: Nystatin (Mycostatin Oral Susp) 500,000 unit PO QID [facility] Last Admin: 06/09/19 12:41 Dose: 500,000 unit Documented by: Oxybutynin Chloride (Ditropan Xl) 5 mg PO DAILY [facility] Last Admin: 06/09/19 08:45 Dose: 5 mg Documented by: Pantoprazole Sodium (Protonix) 40 mg IVP BID [facility] Last Admin: 06/09/19 08:44 Dose: 40 mg Documented by: Sertraline HCl (Zoloft) 50 mg PO [facility] Last Admin: 06/08/19 21:04 Dose: 50 mg Documented by: Sodium Chloride ([place] Nasal Gel) 1 applic TOPICAL Q4HR PRN PRN Reason: Dry Nasal Passages Sodium Chloride (Saline Flush) 10 ml IV Q4HR PRN PRN Reason: PICC Line Sodium Chloride (Saline Flush) 10 ml IV WEEKLY [facility] Last Admin: 06/04/19 08:58 Dose: 10 ml Documented by: Sodium Chloride (Saline Flush) 20 ml IV Q4HR PRN PRN Reason: PICC Line Objective - Vital Signs Vital signs: Vital Signs Temp 97.5 F L 06/09/19 12:05 Pulse 96 06/09/19 13:34 Resp 17 06/09/19 12:05 BP 120/72 06/09/19 12:05 Pulse Ox 96 06/09/19 12:05 Intake & Output 06/08/19 06/09/19 06/09/19 18:59 06:59 18:59 Intake Total 5744.447 8009 1330 Output Total 2185 2360 1625 Balance -899.833 -1150 -295 Weight 80.6 kg Intake: IV 380 460 540 0.9 130 160 40 Albumin Human 5% 250 ml 250 In Empty Bag 1 bag @ 250 mls/hr IVPB Q8HR [facility] Rx#: [id number] Nafcillin 2 gm In 250 300 100 Dextrose 5% in Water 100 ml @ 50 mls/hr IVPB Q4HR [facility] Rx#:[id number] Potassium Chloride 20 meq 150 In Water For Injection 1 100ml.bag @ 50 mls/hr IVPB Q2H [facility] Rx#: [id number] Intake, IV Titration 845.167 600 50 Amount Albumin Human 5% 250 ml 250 250 In Empty Bag 1 bag @ 250 mls/hr IVPB Q8HR [facility] Rx#: [id number] Bumetanide 10 mg In 195.167 100 Dextrose 5% in Water 60 ml @ 1 MG/HR 10 mls/hr IV .Q10H [facility] Rx#:[id number] DOBUTamine DRIP 500 mg In 250 Dextrose/Water 1 250ml. bag @ 5 MCG/KG/MIN 13.275 mls/hr IV .[id number] [facility] Rx#:[id number] Magnesium Sulfate-D5w Pmx 200 1 gm In Dextrose/Water 1 100ml.bag @ 100 mls/hr IVPB Q1H [facility] Rx#: [id number] Potassium Chloride 20 meq 200 50 In Water For Injection 1 100ml.bag @ 50 mls/hr IVPB Q2H [facility] Rx#: [id number] Oral 60 150 430 Blood Product 0 310 Rc As-1 Unit 0 310 [id number] Rc Pheresis 2 As3 Unit 0 [id number] Output: Urine 2185 2260 1625 Stool 100 Other: Voiding Method Indwelling Catheter Indwelling Catheter Indwelling Catheter # Voids 250 # Bowel Movements 1 - Exam -GENERAL: The patient is drowsy, answers simple questions, not in any acute distress. Thin built and generally weak HEENT: Pupils are round and equally reacting to light. EOMI. No scleral icterus. No conjunctival pallor. Normocephalic, atraumatic. No pharyngeal erythema. No thyromegaly. CARDIOVASCULAR: S1 and S2 present. No murmurs, rubs, or gallops. PULMONARY: Chest is clear to auscultation, no wheezing or crackles. ABDOMEN: Soft, nontender, nondistended, normoactive bowel sounds. No palpable organomegaly. MUSCULOSKELETAL: No joint swelling or deformity. EXTREMITIES: No cyanosis, clubbing, or pedal edema. NEUROLOGICAL: Gross neurological examination did not reveal any focal deficits. SKIN: No rashes. no petechiae. - Labs CBC & Chem 7: 06/09/19 05:15 06/09/19 05:15 Labs: Abnormal Lab Results - Last 24 Hours (Table) 06/07/19 06/08/19 06/08/19 Range/Units 06:06 14:45 23:35 RBC (4.30-5.90) m/uL Hgb (13.0-17.5) gm/dL Hct (39.0-53.0) % RDW (11.5-15.5) % Plt Count (150-450) k/uL Lymphocytes # (1.0-4.8) k/uL Sodium (137-145) mmol/L Potassium 3.2 L 2.8 L (3.5-5.1) mmol/L Chloride (98-107) mmol/L BUN (9-20) mg/dL Creatinine (0.66-1.25) mg/dL Glucose (74-99) mg/dL Calcium (8.4-10.2) mg/dL Magnesium 2.4 H (1.6-2.3) mg/dL Crossmatch See Detail 06/09/19 06/09/19 Range/Units 05:15 05:15 RBC 1.92 L (4.30-5.90) m/uL Hgb 5.6 L* D (13.0-17.5) gm/dL Hct 16.4 L* (39.0-53.0) % RDW 17.7 H (11.5-15.5) % Plt Count 40 L (150-450) k/uL Lymphocytes # 0.4 L (1.0-4.8) k/uL Sodium 135 L (137-145) mmol/L Potassium 2.9 L (3.5-5.1) mmol/L Chloride 93 L (98-107) mmol/L BUN 84 H (9-20) mg/dL Creatinine 3.50 H (0.66-1.25) mg/dL Glucose 141 H (74-99) mg/dL Calcium 7.9 L (8.4-10.2) mg/dL Magnesium (1.6-2.3) mg/dL Crossmatch Assessment and Plan Assessment: Infective endocarditis, continue with antibiotics Acute blood loss anemia, status post several units of blood transfusion Acute on chronic congestive heart failure Combined Septic and cardiogenic shock secondary to above, continue with pressors as needed Acute kidney injury History of coronary artery disease COPD, not in acute exacerbation GERD Bicytopenia with anemia and thrombocytopenia History of bladder cancer, status post TURP Hyperlipidemia Osteoarthritis Benign prostatic hypertrophy Hypothyroidism Sleep apnea Chronic back pain with herniated disc Generalized weakness Plan: This is a pleasant 79 years old male who presents with septic and cardiogenic shock, he has infective endocarditis. Continue with the current antibiotics. Continue with diuretic. Blood transfusion to keep hemoglobin above 7. Continue on a pressors as per critical care team recommendations. Follow-up recommendations of nephrology and infectious disease team as well as color consultant.Labs and medication were reviewed.. Continue same treatment. Continue with symptomatic treatment. Resume home medication. Monitor lytes and vitals. DVT and GI prophylaxis. Further recommendations of the clinical course of the patient DVT prophylaxis: Subcutaneous heparin GI Prophylaxis: PPI Prognosis is guarded CODE STATUS: DO NOT RESUSCITATE
[2019-06-09 15:22] LABS: Anisocytosis Slight; Basophils % (A) 0 %; Eosinophils % (A) 0 %; HCT 22.5 % (39.0-53.0); Lymphocytes # (A) 0.5 k/uL (1.0-4.8); Lymphocytes % (A) 5 %; MCHC 33.4 g/dL (31.0-37.0); MCV 86.7 fL (80.0-100.0); Mean Platelet Volume 9.6; Monocytes # (A) 0.2 k/uL (0-1.0); Monocytes % (A) 2 %; Neutrophils # (A) 8.4 k/uL (1.3-7.7); Neutrophils % (A) 92 %; RDW 16.3 % (11.5-15.5); WBC 9.2 k/uL (3.8-10.6)
[2019-06-09 15:28] LABS: HGB 7.5 gm/dL (13.0-17.5); Platelet Count 32 k/uL (150-450)
[2019-06-09] MEDS: POTASSIUM BICARBONATE/CIT AC 20 MEQ TABLET.EFF NG-TUBE SCH ×3 (18:03→23:46)
--- NOTE | 2019-06-09 18:50 | CONS ---
CONSULTATION DATE OF DICTATION: June 09, 2019 REQUESTING PHYSICIAN: Dr. Luis. REASON FOR CONSULTATION: Anemia. HISTORY OF PRESENT ILLNESS: The patient is an 79-year-old pleasant white male who remains in the intensive care unit for the last 2 weeks duration. He was admitted to the hospital with infective endocarditis and decompensated heart failure. He is presently on IV nafcillin for methicillin sensitive Staph aureus infective endocarditis. In has been in the Intensive Care Unit for the last 2 weeks. During the last 2 weeks, on review of labs, the patient has been having intermittent anemia, dropping hemoglobin less than 7 periodically for the last 1 week and had received total of 5 units of blood transfusion. Last night he dropped his hemoglobin to 5.6 requiring another 2 units of blood transfusion. As per the nursing staff, there is no history of active bleeding. The patient had some dark brown stool, but no melena. He denies any abdominal pain reports no nausea, vomiting. Tolerating diet well. PAST MEDICAL HISTORY: Significant for hypertension, hyperlipidemia, congestive heart failure, coronary artery disease, sleep apnea. PAST SURGICAL HISTORY: Bilateral cataract surgeries, hemorrhoid surgery, myotomy, PEG tube placement in the past that was removed subsequently. FAMILY HISTORY: Mother had breast cancer. Sister had colon cancer. HOME MEDICATIONS: Current medications in the hospital include DuoNeb, Symbicort, Bumetanide, Questran, Solu-Cortef, Synthroid, Zaroxolyn, magnesium, Singulair, nafcillin, Levophed, Nystatin, Ditropan, Protonix, Zoloft. SOCIAL HISTORY: No smoking or alcohol use. FAMILY HISTORY: Unremarkable. REVIEW OF SYSTEMS: The patient is a very weak and tired and not able to answer all the questions, but overall review of systems were all negative. PHYSICAL EXAMINATION: He appears comfortable. VITAL SIGNS: Stable. Blood pressure is 130/72, pulse rate 78, temperature 97.5. HEENT examination unremarkable. Conjunctivae pink. Sclerae anicteric. Oral cavity no lesions. Neck: No JVD or lymph node enlargement. Chest was clear to auscultation. HEART: Regular rate and rhythm. ABDOMEN: Soft, it was nontender, nondistended. Bowel sounds are positive. No organomegaly. EXTREMITIES: No pedal edema. NEUROLOGICAL: He is alert to name but not in place and time. EXTREMITIES: No pedal edema. SKIN: No rashes. LABS: Done today WBC 7.7, hemoglobin 5.6, platelets are 40,000. BUN is 84, creatinine 3.5. Stool occult blood was positive. Hemoglobin yesterday was 7.1. IMPRESSION: 1. Normocytic anemia with gradual drop in hemoglobin in the last 1 week of his hospitalization. Hemoglobin today was 5.6 g/dL. On review of the records in the last one week, he received 5 units of blood transfusion. Clinically no evidence of active bleeding. However, there was some question of dark-colored stool that was seen yesterday and today. 2. History of infective endocarditis secondary to methicillin sensitive Staph aureus on IV nafcillin. 3. Decompensated heart failure gradually improving. 4. Acute kidney injury. Nephrology following the patient closely. 5. Chronic obstructive pulmonary disease. RECOMMENDATIONS: 1. Continue with symptomatic and supportive care. 2. Continue IV antibiotics. 3. In regards to the anemia, most likely we are dealing with anemia of chronic disease. He may have a component of blood loss anemia, but clinically he has no evidence of active bleeding. He is status post a total of 5 units of PRBC transfusion in the last 1 week and today he is receiving 2 units. We will repeat CBC tomorrow and will monitor him closely. At this time, I have no plans for any endoscopic intervention. However, he continues to have active bleeding. I will consider this over the course of next few days. PLAN: He will be continued on Protonix 40 mg twice daily and repeat CBC in the morning. We will follow him closely during his hospital stay. Thank you for this consultation. PETER / KALYN: [id number] /
[2019-06-09] MEDS: MONTELUKAST 10 MG TAB PO SCH (20:33)
[2019-06-09] MEDS: SERTRALINE 50 MG TAB PO SCH (20:33)
[2019-06-10] MEDS: POTASSIUM BICARBONATE/CIT AC 20 MEQ TABLET.EFF NG-TUBE SCH ×4 (01:06→08:24)
[2019-06-10] MEDS: NAFCILLIN 2 GM in DEXTROSE 5% IN WATER 100 ML IVPB SCH ×10 (04:14→19:33)
[2019-06-10 05:03] LABS: Anisocytosis Slight; Basophils # (A) 0.1 k/uL (0-0.2); Basophils % (A) 1 %; Eosinophils % (A) 0 %; HCT 25.2 % (39.0-53.0); Lymphocytes # (A) 0.5 k/uL (1.0-4.8); Lymphocytes % (A) 5 %; MCH 29.6 pg (25.0-35.0); MCHC 35.6 g/dL (31.0-37.0); MCV 83.1 fL (80.0-100.0); Mean Platelet Volume 7.9; Monocytes # (A) 0.2 k/uL (0-1.0); Monocytes % (A) 2 %; Neutrophils # (A) 8.5 k/uL (1.3-7.7); Neutrophils % (A) 91 %; Poikilocytosis Slight; RBC 3.03 m/uL (4.30-5.90); WBC 9.4 k/uL (3.8-10.6)
[2019-06-10 05:07] LABS: Platelet Count 40 k/uL (150-450)
[2019-06-10 05:18] LABS: Calcium 8.2 mg/dL (8.4-10.2); Potassium 3.4 mmol/L (3.5-5.1)
[2019-06-10 05:39] LABS: Anisocytosis Slight; HGB 8.2 gm/dL (13.0-17.5); MCH 30.2 pg (25.0-35.0); MCHC 35.8 g/dL (31.0-37.0); MCV 84.4 fL (80.0-100.0); Mean Platelet Volume 7.4; Poikilocytosis Slight; RBC 2.73 m/uL (4.30-5.90); RDW 16.9 % (11.5-15.5); WBC 9.5 k/uL (3.8-10.6)
[2019-06-10 05:42] LABS: Platelet Count 40 k/uL (150-450)
[2019-06-10] MEDS: DOBUTamine DRIP 500 MG in DEXTROSE/WATER 1 250ML.BAG IV SCH (05:48)
[2019-06-10 05:58] LABS: Albumin 2.9 g/dL (3.5-5.0); Calcium 8.2 mg/dL (8.4-10.2); Potassium 3.5 mmol/L (3.5-5.1); Total Bilirubin 5.2 mg/dL (0.2-1.3); Total Protein 6.4 g/dL (6.3-8.2)
[2019-06-10] MEDS: LEVOTHYROXINE 112 MCG TAB PO SCH (06:29)
[2019-06-10] MEDS: MIDODRINE 5 MG TAB PO SCH ×3 (06:29→16:07)
--- NOTE | 2019-06-10 07:07 | PN ---
PROGRESS NOTE DATE OF SERVICE: 06/09/2019 REASON FOR FOLLOWUP: MSSA mitral valve endocarditis. INTERVAL HISTORY: The patient is currently afebrile. The patient has been breathing comfortably. He seems to be getting more stable. Denies any chest pain. Did have a cough. No nausea, no vomiting. No abdominal pain. Still has diarrhea with about 4 stools today per the RN. PHYSICAL EXAMINATION: Blood pressure 110/63, pulse of 98, temperature 98, he is 96% on 4 L high-flow oxygen. General description is an elderly male, lying in bed in no distress. RESPIRATORY SYSTEM: Unlabored breathing. Decreased breath sounds in the bases. HEART: S1, S2. Regular rate and rhythm. ABDOMEN: Soft, no tenderness. LABS: Hemoglobin 7.5, white count of 9.2, BUN of 34, creatinine is 3.50. DIAGNOSTIC IMPRESSION AND PLAN: 1. Patient with MSSA bacteremia with mitral valve endocarditis, did have multiorgan failure. Patient with worsening of his kidney function. Did have some improvement and urine output has improved. Blood pressure has stabilized. The patient to continue with nafcillin with a plan to transition to cefazolin on discharge to finish a 6-week course of therapy. 2. Diarrhea, possible antibiotic-associated; stool for Clostridium difficile was negative. Continue with the Questran, had symptomatic relief. MMODL / IJN: [id number] /
[2019-06-10] MEDS: HYDROCORTISONE SUCCINATE 100 MG/2 ML VIAL IV SCH ×2 (08:20→16:07)
[2019-06-10] MEDS: PANTOPRAZOLE 40 MG/10 ML VIAL IVP SCH ×2 (08:20→21:09)
[2019-06-10] MEDS: OXYBUTYNIN XL 5 MG TAB.ER.24 PO SCH (08:24)
[2019-06-10] MEDS: METOLAZONE 5 MG TAB PO SCH (08:24)
[2019-06-10] MEDS: NYSTATIN 100,000 UNIT/ML SUSP 500,000 UNIT/5 ML CUP PO SCH ×4 (08:24→21:09)
[2019-06-10] MEDS: IPRATROPIUM-ALBUTEROL 3 ML NEB INHALATION SCH ×3 (08:43→20:18)
[2019-06-10] MEDS: SYMBICORT 160-4.5 MCG INHALER INHALATION SCH ×2 (08:47→20:18)
[2019-06-10] MEDS: BUMETANIDE 10 MG in DEXTROSE 5% IN WATER 60 ML IV SCH ×4 (09:10→19:49)
[2019-06-10] MEDS: HYDROPHILIC CREAM 180 GM TUBE TOPICAL SCH ×2 (09:10→21:10)
--- NOTE | 2019-06-10 10:27 | P.PN ---
Subjective This is a pleasant 79 years old male with past medical history of coronary artery disease, heart failure, COPD, GERD, hyperlipidemia, osteoarthritis, benign prostatic hypertrophy, hypothyroidism, sleep apnea on CPAP/BiPAP, chronic back pain with herniated disc. Patient has been in the ICU for several days for septic shock secondary to endocarditis with MSSA, complicated by acute congestive heart failure with ejection fraction 30%. Also patient has worsening creatinine up to 3.4, baseline creatinine is 1.1 Patient is tachycardic and hypotensive, he is on pressors. Potassium is low at 2.8, being replaced, creatinine is elevated at 3.4, baseline is around 1.2. Sugar is controlled. WBC is 9.6, hemoglobin 6.8 which is been going on for a f ew days. 06/08/2019 Patient is with cup and sitting in the chair, he still feels generally weak, his hematocrit was stopped today and his blood pressure is holding up, current blood pressure is 84/66 and biopsies 69, distal and dobutamine drip at 5, he has left- sided PICC line. His hemoglobin is up today to 7.1, creatinine 3.5. [employer]arer evaluation is appreciated 06/09/2019 Patient is resting in bed not in distress however he looks more lethargic today. He is afebrile however his blood pressure is 120/72 and slightly tachycardic at 100 bpm, patient today has adequate a drop in his hemoglobin down from 7.10 to 5.6, patient remains in the ICU because of his physical conditions and they get into units of blood transfusion. Potassium is also on the low side with 2.9 was coming to be replaced, low sodium at 135. Creatinine is still elevated at 3.5. Albumin was started yesterday and today he was started on Protonix twice daily. 06/10/2019 Patient in the ICU, distal and critical condition. However he is awake and answers some questions appropriately and follow command however remains confused and weak. He is hemodynamically stable and he is saturating 91% on 6 L oxygen by high flow cannula. Patient remains afebrile. Labs reviewed today showing hemoglobin of 8.2, his platelets today is 40, after receiving several units of blood transfusion, no leukocytosis and WBC is 9.5K, sodium 135, creatinine 2.8 slightly lower than yesterday. He has bilateral leg edema. Patient remains on Bumex and dobutamine drips however quit. His blood pressure this morning was 101/61. His heparin and aspirin will discontinue it and patient was placed on Protonix 40 mg twice daily Review of systems CONSTITUTIONAL: No fever, no malaise, no fatigue. HEENT: No recent visual problems or hearing problems. Denied any sore throat. CARDIOVASCULAR: No orthopnea, PND, no palpitations, no syncope. PULMONARY: no cough, no hemoptysis. GASTROINTESTINAL: No diarrhea, no nausea, no vomiting, no abdominal pain. Normoactive bowel sounds. NEUROLOGICAL: No headaches, no weakness, no numbness. HEMATOLOGICAL: Denies any bleeding or petechiae. GENITOURINARY: Denies any burning micturition, frequency, or urgency. MUSCULOSKELETAL/RHEUMATOLOGICAL: Denies any joint pain, swelling, or any muscle pain. ENDOCRINE: Denies any polyuria or polydipsia. Active Medications Acetaminophen (Tylenol Tab) 650 mg PO Q4HR PRN PRN Reason: Fever and/or Mild Pain Last Admin: 06/09/19 11:47 Dose: 650 mg Documented by: Albuterol/Ipratropium (Duoneb 0.5 Mg-3 Mg/3 Ml Soln) 3 ml INHALATION RT-TID [facility] Last Admin: 06/10/19 08:43 Dose: 3 ml Documented by: Budesonide/Formoterol Fumarate (Symbicort 160-4.5 Mcg Inhaler) 2 puff INHALATION RT-BID [facility] Last Admin: 06/10/19 08:47 Dose: 2 puff Documented by: Cholestyramine Resin (Questran) 4 gm PO BID@1000,1800 [facility] Last Admin: 06/09/19 18:03 Dose: 4 gm Documented by: Darbepoetin Cyrus (Aranesp) 60 mcg SQ Q7D [facility] Last Admin: 06/07/19 18:19 Dose: 60 mcg Documented by: Hydrocortisone Sodium Succinate (Solu-Cortef) 50 mg IV Q8HR [facility] Last Admin: 06/10/19 08:20 Dose: 50 mg Documented by: Nafcillin Sodium 2 gm/ (Dextrose/Water) 100 mls @ 50 mls/hr IVPB Q4HR [facility] Last Admin: 06/10/19 08:20 Dose: 50 mls/hr Documented by: Sodium Chloride (Saline 0.9%) 1,000 mls @ 20 mls/hr IV .Q24H [facility] Last Admin: 06/08/19 14:38 Dose: 20 mls/hr Documented by: Dobutamine HCl/Dextrose 500 mg (/ IV Solution) 250 mls @ 13.275 mls/hr IV .[id number] [facility] Last Admin: 06/10/19 05:48 Dose: 5 mcg/kg/min, 13.275 mls/hr Documented by: Norepinephrine Bitartrate 8 mg (/ Sodium Chloride) 258 mls @ 8.562 mls/hr IV .Q24H [facility]; Protocol Last Titration: 06/07/19 20:15 Dose: 0 mcg/kg/min, 0 mls/hr Documented by: Bumetanide 10 mg/ Dextrose/ (Water) 100 mls @ 10 mls/hr IV .Q10H [facility] Last Admin: 06/10/19 09:10 Dose: 1 mg/hr, 10 mls/hr Documented by: Levothyroxine Sodium (Synthroid) 112 mcg PO DAILY@0630 [facility] Last Admin: 06/10/19 06:29 Dose: 112 mcg Documented by: Metolazone (Zaroxolyn) 5 mg PO BID [facility] Last Admin: 06/10/19 08:24 Dose: 5 mg Documented by: Midodrine (Proamatine) 10 mg PO TID@0700,1100,1600 [facility] Last Admin: 06/10/19 06:29 Dose: 10 mg Documented by: Miscellaneous Information (Magnesium Per Protocol) 1 each MISCELLANE DAILY PRN; Protocol PRN Reason: Per Protocol Miscellaneous Information (Potassium Per Protocol) 1 each MISCELLANE DAILY PRN; Protocol PRN Reason: Per Protocol Montelukast Sodium (Singulair) 10 mg PO HS [facility] Last Admin: 06/09/19 20:33 Dose: 10 mg Documented by: Multi-Ingred Cream/Lotion/Oil/Oint (Triad Cream) 1 applic TOPICAL Q12HR [facility] Last Admin: 06/10/19 09:10 Dose: 1 applic Documented by: Nystatin (Mycostatin Oral Susp) 500,000 unit PO QID [facility] Last Admin: 06/10/19 08:24 Dose: 500,000 unit Documented by: Oxybutynin Chloride (Ditropan Xl) 5 mg PO DAILY [facility] Last Admin: 06/10/19 08:24 Dose: 5 mg Documented by: Pantoprazole Sodium (Protonix) 40 mg IVP BID [facility] Last Admin: 06/10/19 08:20 Dose: 40 mg Documented by: Sertraline HCl (Zoloft) 50 mg PO HS [facility] Last Admin: 06/09/19 20:33 Dose: 50 mg Documented by: Sodium Chloride (Keenes Nasal Gel) 1 applic TOPICAL Q4HR PRN PRN Reason: Dry Nasal Passages Sodium Chloride (Saline Flush) 10 ml IV Q4HR PRN PRN Reason: PICC Line Sodium Chloride (Saline Flush) 10 ml IV WEEKLY [facility] Last Admin: 06/04/19 08:58 Dose: 10 ml Documented by: Sodium Chloride (Saline Flush) 20 ml IV Q4HR PRN PRN Reason: PICC Line Sodium Chloride (Saline Flush) 20 ml IV Q4HR PRN PRN Reason: PICC Line Objective - Vital Signs Vital signs: Vital Signs Temp 98.1 F 06/10/19 08:00 Pulse 92 06/10/19 10:00 Resp 16 06/10/19 10:00 BP 110/69 06/10/19 10:00 Pulse Ox 91 L 06/10/19 10:00 Intake & Output 06/09/19 06/10/19 06/10/19 18:59 06:59 18:59 Intake Total 2750 1110 300 Output Total 3140 2800 810 Balance -390 -1620 -510 Weight 75.5 kg Intake: IV 880 480 140 0.9 130 180 40 Albumin Human 5% 250 ml 250 In Empty Bag 1 bag @ 250 mls/hr IVPB Q8HR [facility] Rx#: [id number] Nafcillin 2 gm In 300 300 100 Dextrose 5% in Water 100 ml @ 50 mls/hr IVPB Q4HR [facility] Rx#:[id number] Potassium Chloride 20 meq 200 In Water For Injection 1 100ml.bag @ 50 mls/hr IVPB Q2H [facility] Rx#: [id number] Intake, IV Titration 150 350 Amount Bumetanide 10 mg In 100 100 Dextrose 5% in Water 60 ml @ 1 MG/HR 10 mls/hr IV .Q10H [facility] Rx#:[id number] DOBUTamine DRIP 500 mg In 250 Dextrose/Water 1 250ml. bag @ 5 MCG/KG/MIN 13.275 mls/hr IV .[id number] [facility] Rx#:[id number] Potassium Chloride 20 meq 50 In Water For Injection 1 100ml.bag @ 50 mls/hr IVPB Q2H [facility] Rx#: [id number] Oral 480 160 160 Tube Feeding 120 Blood Product 1240 Rc As-1 Unit 310 [id number] Rc Pheresis 2 As3 Unit 310 [id number] Output: Urine 3140 2700 810 Stool 100 Other: Voiding Method Indwelling Catheter Indwelling Catheter Indwelling Catheter # Bowel Movements 1 1 1 - Exam -GENERAL: The patient is drowsy, answers simple questions, not in any acute distress. Thin built and generally weak HEENT: Pupils are round and equally reacting to light. EOMI. No scleral icterus. No conjunctival pallor. Normocephalic, atraumatic. No pharyngeal erythema. No thyromegaly. CARDIOVASCULAR: S1 and S2 present. No murmurs, rubs, or gallops. PULMONARY: Chest is clear to auscultation, no wheezing or crackles. ABDOMEN: Soft, nontender, nondistended, normoactive bowel sounds. No palpable organomegaly. MUSCULOSKELETAL: No joint swelling or deformity. EXTREMITIES: No cyanosis, clubbing, or pedal edema. NEUROLOGICAL: Gross neurological examination did not reveal any focal deficits. SKIN: No rashes. no petechiae. - Labs CBC & Chem 7: 06/10/19 05:20 06/10/19 05:20 Labs: Abnormal Lab Results - Last 24 Hours (Table) 06/07/19 06/09/19 06/09/19 Range/Units 06:06 15:15 15:15 RBC 2.60 L (4.30-5.90) m/uL Hgb 7.5 L D (13.0-17.5) gm/dL Hct 22.5 L (39.0-53.0) % RDW 16.3 H (11.5-15.5) % Plt Count 32 L (150-450) k/uL Neutrophils # 8.4 H (1.3-7.7) k/uL Lymphocytes # 0.5 L (1.0-4.8) k/uL Sodium (137-145) mmol/L Potassium 3.0 L (3.5-5.1) mmol/L Chloride (98-107) mmol/L Carbon Dioxide (22-30) mmol/L BUN (9-20) mg/dL Creatinine (0.66-1.25) mg/dL Glucose (74-99) mg/dL Calcium (8.4-10.2) mg/dL Total Bilirubin (0.2-1.3) mg/dL Albumin (3.5-5.0) g/dL Crossmatch See Detail 06/09/19 06/10/19 06/10/19 Range/Units 20:25 04:39 04:39 RBC 3.03 L (4.30-5.90) m/uL Hgb 9.0 L D (13.0-17.5) gm/dL Hct 25.2 L (39.0-53.0) % RDW 17.0 H (11.5-15.5) % Plt Count 40 L (150-450) k/uL Neutrophils # 8.5 H (1.3-7.7) k/uL Lymphocytes # 0.5 L (1.0-4.8) k/uL Sodium 136 L (137-145) mmol/L Potassium 3.3 L 3.4 L (3.5-5.1) mmol/L Chloride 92 L (98-107) mmol/L Carbon Dioxide (22-30) mmol/L BUN 86 H (9-20) mg/dL Creatinine 2.94 H (0.66-1.25) mg/dL Glucose 132 H (74-99) mg/dL Calcium 8.2 L (8.4-10.2) mg/dL Total Bilirubin (0.2-1.3) mg/dL Albumin (3.5-5.0) g/dL Crossmatch 06/10/19 06/10/19 Range/Units 05:20 05:20 RBC 2.73 L (4.30-5.90) m/uL Hgb 8.2 L (13.0-17.5) gm/dL Hct 23.0 L (39.0-53.0) % RDW 16.9 H (11.5-15.5) % Plt Count 40 L (150-450) k/uL Neutrophils # (1.3-7.7) k/uL Lymphocytes # (1.0-4.8) k/uL Sodium 135 L (137-145) mmol/L Potassium (3.5-5.1) mmol/L Chloride 90 L (98-107) mmol/L Carbon Dioxide 34 H (22-30) mmol/L BUN 88 H (9-20) mg/dL Creatinine 2.89 H (0.66-1.25) mg/dL Glucose 126 H (74-99) mg/dL Calcium 8.2 L (8.4-10.2) mg/dL Total Bilirubin 5.2 H (0.2-1.3) mg/dL Albumin 2.9 L (3.5-5.0) g/dL Crossmatch Assessment and Plan Assessment: Infective endocarditis, continue with antibiotics Acute blood loss anemia, status post several units of blood transfusion Acute on chronic congestive heart failure Combined Septic and cardiogenic shock secondary to above, continue with pressors as needed Acute kidney injury History of coronary artery disease COPD, not in acute exacerbation GERD Bicytopenia with anemia and thrombocytopenia History of bladder cancer, status post TURP Hyperlipidemia Osteoarthritis Benign prostatic hypertrophy Hypothyroidism Sleep apnea Chronic back pain with herniated disc Generalized weakness Plan: This is a pleasant 79 years old male who presents with septic and cardiogenic shock, he has infective endocarditis. Continue with the current antibiotics. Continue with diuretic. Blood transfusion to keep hemoglobin above 7. Continue on a pressors as per critical care team recommendations. Follow-up recommendations of nephrology and infectious disease team as well as staff consultant.Labs and medication were reviewed.. Continue same treatment. Continue with symptomatic treatment. Resume home medication. Monitor lytes and vitals. DVT and GI prophylaxis. Further recommendations of the clinical course of the patient DVT prophylaxis: Discontinue Subcutaneous heparin in view of possible GI bleed and thrombocytopenia GI Prophylaxis: PPI Prognosis is guarded CODE STATUS: DO NOT RESUSCITATE
--- NOTE | 2019-06-10 10:34 | PN ---
PROGRESS NOTE This is 79-year-old gentleman with multivalve endocarditis who is on antibiotics. Apparently, he is not a good surgical candidate and patient is currently on antibiotics. He is growing coag-negative Staph in the blood. He also has severe anemia, has been transfused. He has history of prior aortocoronary bypass surgery. He has also some renal failure with a creatinine in the range of 3.0 also. At the time of my evaluation, patient is not very communicative. He denies any chest discomfort. He is currently on IV dobutamine. He is not on any pressors at this time. Vital signs are stable with a blood pressure of about 108/60, pulse rate is about 80 per minute sinus. S1-S2 heard normally, ejection systolic murmur is audible. Lungs reveal diminished air entry. Abdomen and lower extremity exam is unchanged. From a cardiac standpoint, I would continue current medical regimen and overall prognosis appears to be quite poor for this patient. MMODL / IJN: [id number] /
[2019-06-10] MEDS: CHOLESTYRAMINE (WITH SUGAR) 4 GM PACKET PO SCH ×2 (10:57→17:36)
--- NOTE | 2019-06-10 11:30 | P.PN ---
Subjective Patient is seen in follow-up for acute kidney injury. Renal function gradually improving. Currently maintained on dobutamine and Bumex drip. Urine output about 200 mL an hour. Edema improving. Patient did receive total of 7 units of blood transfusion this admission. Hemoglobin today is 8.2. No active bleeding noted. Vital signs are stable. General: The patient appeared well nourished and normally developed. HEENT: Head exam is unremarkable. Neck is without jugular venous distension. LUNGS: Breath sounds decreased. HEART: Rate and Rhythm are regular. First and second heart sounds normal. No murmurs, rubs or gallops. ABDOMEN: Abdominal exam reveals normal bowel sounds. Non-tender and non- distended. No evidence of peritonitis. EXTREMITITES: 1+ edema. Objective - Vital Signs Vital signs: Vital Signs Temp 98.1 F 06/10/19 08:00 Pulse 93 06/10/19 11:00 Resp 15 06/10/19 11:00 BP 108/67 06/10/19 11:00 Pulse Ox 91 L 06/10/19 11:00 Intake & Output 06/09/19 06/10/19 06/10/19 18:59 06:59 18:59 Intake Total 2750 1110 310 Output Total 3140 2800 1080 Balance 390 -1690 -770 Weight 75.5 kg 75.5 kg Intake: IV 880 480 150 0.9 130 180 50 Albumin Human 5% 250 ml 250 In Empty Bag 1 bag @ 250 mls/hr IVPB Q8HR [facility] Rx#: [id number] Nafcillin 2 gm In 300 300 100 Dextrose 5% in Water 100 ml @ 50 mls/hr IVPB Q4HR [facility] Rx#:[id number] Potassium Chloride 20 meq 200 In Water For Injection 1 100ml.bag @ 50 mls/hr IVPB Q2H [facility] Rx#: [id number] Intake, IV Titration 150 350 Amount Bumetanide 10 mg In 100 100 Dextrose 5% in Water 60 ml @ 1 MG/HR 10 mls/hr IV .Q10H [facility] Rx#:[id number] DOBUTamine DRIP 500 mg In 250 Dextrose/Water 1 250ml. bag @ 5 MCG/KG/MIN 13.275 mls/hr IV .[id number] [facility] Rx#:[id number] Potassium Chloride 20 meq 50 In Water For Injection 1 100ml.bag @ 50 mls/hr IVPB Q2H [facility] Rx#: [id number] Oral 480 160 160 Tube Feeding 120 Blood Product 1240 Rc As-1 Unit 310 [id number] Rc Pheresis 2 As3 Unit 310 [id number] Output: Urine 3140 2700 1080 Stool 100 Other: Voiding Method Indwelling Catheter Indwelling Catheter Indwelling Catheter # Bowel Movements 1 1 1 - Labs CBC & Chem 7: 06/10/19 05:20 06/10/19 05:20 Labs: Abnormal Lab Results - Last 24 Hours (Table) 06/07/19 06/09/19 06/09/19 Range/Units 06:06 15:15 15:15 RBC 2.60 L (4.30-5.90) m/uL Hgb 7.5 L D (13.0-17.5) gm/dL Hct 22.5 L (39.0-53.0) % RDW 16.3 H (11.5-15.5) % Plt Count 32 L (150-450) k/uL Neutrophils # 8.4 H (1.3-7.7) k/uL Lymphocytes # 0.5 L (1.0-4.8) k/uL Sodium (137-145) mmol/L Potassium 3.0 L (3.5-5.1) mmol/L Chloride (98-107) mmol/L Carbon Dioxide (22-30) mmol/L BUN (9-20) mg/dL Creatinine (0.66-1.25) mg/dL Glucose (74-99) mg/dL Calcium (8.4-10.2) mg/dL Total Bilirubin (0.2-1.3) mg/dL Albumin (3.5-5.0) g/dL Crossmatch See Detail 06/09/19 06/10/19 06/10/19 Range/Units 20:25 04:39 04:39 RBC 3.03 L (4.30-5.90) m/uL Hgb 9.0 L D (13.0-17.5) gm/dL Hct 25.2 L (39.0-53.0) % RDW 17.0 H (11.5-15.5) % Plt Count 40 L (150-450) k/uL Neutrophils # 8.5 H (1.3-7.7) k/uL Lymphocytes # 0.5 L (1.0-4.8) k/uL Sodium 136 L (137-145) mmol/L Potassium 3.3 L 3.4 L (3.5-5.1) mmol/L Chloride 92 L (98-107) mmol/L Carbon Dioxide (22-30) mmol/L BUN 86 H (9-20) mg/dL Creatinine 2.94 H (0.66-1.25) mg/dL Glucose 132 H (74-99) mg/dL Calcium 8.2 L (8.4-10.2) mg/dL Total Bilirubin (0.2-1.3) mg/dL Albumin (3.5-5.0) g/dL Crossmatch 06/10/19 06/10/19 Range/Units 05:20 05:20 RBC 2.73 L (4.30-5.90) m/uL Hgb 8.2 L (13.0-17.5) gm/dL Hct 23.0 L (39.0-53.0) % RDW 16.9 H (11.5-15.5) % Plt Count 40 L (150-450) k/uL Neutrophils # (1.3-7.7) k/uL Lymphocytes # (1.0-4.8) k/uL Sodium 135 L (137-145) mmol/L Potassium (3.5-5.1) mmol/L Chloride 90 L (98-107) mmol/L Carbon Dioxide 34 H (22-30) mmol/L BUN 88 H (9-20) mg/dL Creatinine 2.89 H (0.66-1.25) mg/dL Glucose 126 H (74-99) mg/dL Calcium 8.2 L (8.4-10.2) mg/dL Total Bilirubin 5.2 H (0.2-1.3) mg/dL Albumin 2.9 L (3.5-5.0) g/dL Crossmatch Assessment and Plan Plan: Assessment: 1. Acute kidney injury secondary to ATN secondary to cardiorenal syndrome. Creatinine slightly better at 2.89 today. Baseline creatinine is near 1. 2. Hyponatremia secondary to acute kidney injury. Patient is hypervolemic. Improved. 3. Volume overload improving with diuresis. 4. MSSA endocarditis maintained on IV antibiotics. 5. Metabolic acidosis secondary to acute kidney injury. Resolved. 6. Acute on chronic systolic CHF with ejection fraction of 30-35%. 7. Hypokalemia secondary to diuresis.. 8. Anemia and thrombocytopenia. No schistocytes noted. Plan: Maintain dobutamine and Bumex drip. Decrease metolazone to 5 mg once daily. Avoid nephrotoxins. Continue to monitor renal function and urine output. Check LDH and haptoglobin. Potassium being replaced.
--- NOTE | 2019-06-10 13:51 | P.PN ---
Subjective Progress Note Date: 06/10/19 Principal diagnosis: Sepsis, gram-positive bacteremia , and endocarditis. On 06/09/2019, I'm seeing this patient for a follow-up. The patient is still struggling as the patient is being treated for infective endocarditis, a bibasilar infection with staph and the patient is currently on IV nafcillin. The patient is on 6 L of oxygen by nasal cannula. He was in full-blown decom pensated heart failure. He was treated with a combination of dobutamine and he was given pressors in the form of norepinephrine infusion, IV Bumex. He improved. Pressors have been discontinued for now with exception of dobutamine still being used for augmentation of the cardiac output. The patient is still a Bumex drip at 1 mg an hour. I have noticed considerable amount of improvement in his urine output over the past 48 hours and the patient's lower extremity edema is improving and the renal function is slowly improving also. He is also on Zaroxolyn. Nevertheless, this morning, the patient developed a drop in hemoglobin down to 5.6. He did also have a melanotic stool. Suspect upper GI bleeding. Note that hemoglobin are not was dropping throughout the past week. The patient received 2 units of packed RBC for hemoglobin of less than 7. For now, the patient will receive a total of 2 units of RBC. His platelet counts have been dropping and this has been a multifactorial event. The patient is on aspirin. Subcu heparin has been discontinued. He is on nafcillin. The thromb ocytopenia could be also consumptive. Nevertheless, despite this all events, he is holding his own blood pressure and there has been no significant hypotension. No chest pain. No nausea vomiting. Mental status is gradually improving. He was able to follow commands and answering questions appropriately on today's evaluation. No previous history of GI bleed. His most recent platelet count is at 40,000 slightly lower compared to yesterday. On 05/31/2019, patient is still in the ICU, receiving treatment for endocarditis, patient remains on IV nafcillin. He is on few liters nasal cannula, and remains on dobutamine, is also on IV Bumex, not requiring norepinephrine at this point. His urine output seems to be excellent. Chest x-ray continues to show evidence of mild interstitial edema. CBC is relatively normal hemoglobin is 8.2 WBC count is 9.5 left lites are normal renal profile is abnormal with BUN of 88 creatinine 2.89. Objective - Vital Signs Vital signs: Vital Signs Temp 97.9 F 06/10/19 12:00 Pulse 98 06/10/19 13:00 Resp 16 06/10/19 13:00 BP 99/69 06/10/19 13:00 Pulse Ox 92 L 06/10/19 13:00 Intake & Output 06/09/19 06/10/19 06/10/19 18:59 06:59 18:59 Intake Total 2750 1110 530 Output Total 3140 2800 1580 Balance -390 -1690 -1050 Weight 75.5 kg 75.5 kg Intake: IV 880 480 270 0.9 130 180 70 Albumin Human 5% 250 ml 250 In Empty Bag 1 bag @ 250 mls/hr IVPB Q8HR [facility] Rx#: [id number] Nafcillin 2 gm In 300 300 200 Dextrose 5% in Water 100 ml @ 50 mls/hr IVPB Q4HR [facility] Rx#:[id number] Potassium Chloride 20 meq 200 In Water For Injection 1 100ml.bag @ 50 mls/hr IVPB Q2H [facility] Rx#: [id number] Intake, IV Titration 150 350 Amount Bumetanide 10 mg In 100 100 Dextrose 5% in Water 60 ml @ 1 MG/HR 10 mls/hr IV .Q10H [facility] Rx#:[id number] DOBUTamine DRIP 500 mg In 250 Dextrose/Water 1 250ml. bag @ 5 MCG/KG/MIN 13.275 mls/hr IV .[id number] [facility] Rx#:[id number] Potassium Chloride 20 meq 50 In Water For Injection 1 100ml.bag @ 50 mls/hr IVPB Q2H [facility] Rx#: [id number] Oral 480 160 260 Tube Feeding 120 Blood Product 1240 Rc As-1 Unit 310 [id number] Rc Pheresis 2 As3 Unit 310 [id number] Output: Urine 3140 2700 1580 Stool 100 Other: Voiding Method Indwelling Catheter Indwelling Catheter Indwelling Catheter # Bowel Movements 1 1 1 - Exam Physical Exam: Revealed 79-year-old white male confused, on 6 L nasal cannula. In no distress. Head: Atraumatic, normocephalic. HEENT:[Neck is supple.] [No neck masses.] [No thyromegaly.] [No JVD.] PERRLA, EOMI, dry mucous membranes, no thrush. Chest: [Symmetrical chest expansion, fine crackles bilaterally no rhonchi and no wheezes. Cardiac Exam: [Normal S1 and S2, no S3 gallop, 2/6 systolic murmur thought the precordium. Abdomen: [Soft, nontender, no megaly, no rebound, no guarding, normal bowel sounds.] Extremities: [No clubbing, 1+ bipedal edema, no cyanosis.] Neurological Exam: [No focal neurologic deficit.] Alert and oriented 3. Psychiatric: Normal mood, affect and normal mental status examination. Skin: No rashes. Musculoskeletal: Muscle strength and tone are normal. Lymphatics: No lymphadenopathy. - Labs CBC & Chem 7: 06/10/19 05:20 06/10/19 05:20 Labs: Abnormal Lab Results - Last 24 Hours (Table) 06/07/19 06/09/19 06/09/19 Range/Units 06:06 15:15 15:15 RBC 2.60 L (4.30-5.90) m/uL Hgb 7.5 L D (13.0-17.5) gm/dL Hct 22.5 L (39.0-53.0) % RDW 16.3 H (11.5-15.5) % Plt Count 32 L (150-450) k/uL Neutrophils # 8.4 H (1.3-7.7) k/uL Lymphocytes # 0.5 L (1.0-4.8) k/uL Sodium (137-145) mmol/L Potassium 3.0 L (3.5-5.1) mmol/L Chloride (98-107) mmol/L Carbon Dioxide (22-30) mmol/L BUN (9-20) mg/dL Creatinine (0.66-1.25) mg/dL Glucose (74-99) mg/dL Calcium (8.4-10.2) mg/dL Total Bilirubin (0.2-1.3) mg/dL Lactate Dehydrogenase (313-618) U/L Albumin (3.5-5.0) g/dL Crossmatch See Detail 06/09/19 06/10/19 06/10/19 Range/Units 20:25 04:39 04:39 RBC 3.03 L (4.30-5.90) m/uL Hgb 9.0 L D (13.0-17.5) gm/dL Hct 25.2 L (39.0-53.0) % RDW 17.0 H (11.5-15.5) % Plt Count 40 L (150-450) k/uL Neutrophils # 8.5 H (1.3-7.7) k/uL Lymphocytes # 0.5 L (1.0-4.8) k/uL Sodium 136 L (137-145) mmol/L Potassium 3.3 L 3.4 L (3.5-5.1) mmol/L Chloride 92 L (98-107) mmol/L Carbon Dioxide (22-30) mmol/L BUN 86 H (9-20) mg/dL Creatinine 2.94 H (0.66-1.25) mg/dL Glucose 132 H (74-99) mg/dL Calcium 8.2 L (8.4-10.2) mg/dL Total Bilirubin (0.2-1.3) mg/dL Lactate Dehydrogenase (313-618) U/L Albumin (3.5-5.0) g/dL Crossmatch 06/10/19 06/10/19 06/10/19 Range/Units 05:20 05:20 05:20 RBC 2.73 L (4.30-5.90) m/uL Hgb 8.2 L (13.0-17.5) gm/dL Hct 23.0 L (39.0-53.0) % RDW 16.9 H (11.5-15.5) % Plt Count 40 L (150-450) k/uL Neutrophils # (1.3-7.7) k/uL Lymphocytes # (1.0-4.8) k/uL Sodium 135 L (137-145) mmol/L Potassium (3.5-5.1) mmol/L Chloride 90 L (98-107) mmol/L Carbon Dioxide 34 H (22-30) mmol/L BUN 88 H (9-20) mg/dL Creatinine 2.89 H (0.66-1.25) mg/dL Glucose 126 H (74-99) mg/dL Calcium 8.2 L (8.4-10.2) mg/dL Total Bilirubin 5.2 H (0.2-1.3) mg/dL Lactate Dehydrogenase 1284 H (313-618) U/L Albumin 2.9 L (3.5-5.0) g/dL Crossmatch Assessment and Plan Plan: Impression: 1 septic shock secondary to MSSA infective endocarditis, remains on nafcillin 2 acute on chronic systolic congestive heart failure ejection fraction of 50% remains on dobutamine and Bumex. 3 acute hypoxic respiratory failure secondary to pulmonary edema presently on 6 L nasal cannula 4 acute kidney injury, secondary to acute tubular necrosis and hypotension 5 chronic obstructive pulmonary disease with chronic hypoxia and hypercapnia 6 history of bladder cancer post-TURB 7 hypertension 8 hypothyroidism 9 chronic anemia, multifactorial 10 thrombocytopenia, consumptive in nature possibly drug induced 11 medical debility, and CODE STATUS remains DO NOT RESUSCITATE. Recommendation: Continue present supportive care measures, continue diuretics, continue dobutamine for his LV dysfunction transfuse blood as needed for hemoglobin below 7 stop subcu heparin monitor platelets, continue to monitor CBC, long-term prognosis is extremely poor and guarded. We'll continue to follow Time with Patient: Less than 30
--- NOTE | 2019-06-10 14:06 | XR ---
EXAMINATION TYPE: XR chest 1V portable DATE OF EXAM: 06/10/2019 Comparison: 06/07/2019 Clinical History: 79-year-old male shortness of breath, Findings: Left PICC tip at the caval atrial junction. Median sternotomy wires with post-CABG clips. Heart upper limits of normal in size. Diffuse interstitial and vascular densities and patchy right basilar opaci ty persist. Impression: Overall similar interstitial changes and patchy right basilar density. Correlate for interstitial pul monary edema and either more confluent edema versus infiltrate at the right base.
[2019-06-10] MEDS: POTASSIUM CHLORIDE 20 MEQ in WATER FOR INJECTION 1 100ML.BAG IVPB SCH ×3 (16:18→19:33)
[2019-06-10] MEDS: SODIUM CHLORIDE 0.9% 1,000 ML IV SCH (17:36)
--- NOTE | 2019-06-10 18:28 | PN ---
PROGRESS NOTE DATE OF DICTATION: 06/10/2019 Patient is an 79-year-old pleasant white male who was admitted to the hospital with methicillin-sensitive infective endocarditis/congestive heart failure and presently has been in the hospital for 3 weeks on antibiotic therapy. He denies any new symptoms. He was seen in consultation yesterday because of intermittent anemia with drop in hemoglobin over the last one week requiring a total of 5 units of PRBC transfusion. Yesterday hemoglobin was 5.6. He received 2 more units. Today hemoglobin is 9.2 g/dL. As per the nursing staff, he had 2 black stools early this morning, small quantity. He denies any abdominal pain. No nausea, vomiting. Able to tolerate diet reasonably well. He complains of fatigue and weakness. PHYSICAL EXAMINATION: He appears comfortable. No apparent distress. VITAL SIGNS: Stable. Blood pressure is 97/58, pulse rate 96, temperature 98.7. HEENT examination unremarkable. Conjunctivae pink. Sclerae anicteric. Oral cavity no lesions. NECK: No JVD or lymph node enlargement. CHEST: Clear to auscultation. HEART: Regular rate and rhythm. Murmur noted. ABDOMEN: Benign. Bowel sounds are positive. No organomegaly. EXTREMITIES: No pedal edema. NEUROLOGIC: He is awake, oriented to name; not to place and time. LABS FROM TODAY: Hemoglobin 8.2, WBC 9.4, platelets 40,000. BUN 88, creatinine 2.84. IMPRESSION: 1. Normocytic anemia with gradual drop in hemoglobin in the last one week requiring total of 5 units of PRBC transfusion, but clinically he does not have any evidence of active bleeding. He did have 2 episodes of black tarry stools, but hemodynamically he remains stable. Anemia could be multifactorial. Part of it could be GI blood loss, possibly upper GI source. Today hemoglobin is stable at 8.2 g/dL. 2. Decompensated heart disease, decompensated congestive heart failure. 3. Infective endocarditis with methicillin-sensitive Staphylococcus aureus, on IV nafcillin. ID following the patient closely. RECOMMENDATIONS: 1. Continue Protonix 40 mg q.12 hours. 2. CBC on a daily basis. 3. Transfuse as needed. 4. At this time, given his overall medical condition, I do not plan on any endoscopic intervention unless he has further active bleeding that necessitates endoscopic intervention. I will follow him closely during his hospital stay. Thank you for this consultation. MMODL / IJN: [id number] /
[2019-06-10] MEDS: MONTELUKAST 10 MG TAB PO SCH (21:09)
[2019-06-10] MEDS: SERTRALINE 50 MG TAB PO SCH (21:09)
--- NOTE | 2019-06-10 22:03 | PN ---
PROGRESS NOTE DATE OF SERVICE: 06/10/2019 REASON FOR FOLLOWUP: MSSA mitral valve endocarditis. INTERVAL HISTORY: The patient was seen on rounds this afternoon. The patient has been afebrile. He has been breathing comfortably. Denies having any chest pain. No cough. No nausea, vomiting or any worsening diarrhea reported. PHYSICAL EXAMINATION: Blood pressure 101/64 with a pulse of 96, temperature 97.2. He is 93% on 6 L nasal cannula. General description is an elderly male lying in bed in no distress. RESPIRATORY SYSTEM: Unlabored breathing with decreased breath sounds at the base. No wheeze. HEART: S1, S2. Regular rate and rhythm. ABDOMEN: Soft. No tenderness. LABS: Hemoglobin 8.2, white count 9.5. BUN of 88, creatinine 2.89. DIAGNOSTIC IMPRESSION AND PLAN: Patient with methicillin-susceptible Staphylococcus aerus mitral valve endocarditis. Follow-up blood culture has been negative for more than 2 weeks now. The patient is currently with nafcillin with the plan for a total of 6 weeks of antibiotic, which can be transitioned to cefazolin on discharge. Overall prognosis remains guarded. Continue with supportive care. MMODL / IJN: [id number] / IRENE
[2019-06-11] MEDS: HYDROCORTISONE SUCCINATE 100 MG/2 ML VIAL IV SCH ×4 (00:41→23:47)
[2019-06-11] MEDS: NAFCILLIN 2 GM in DEXTROSE 5% IN WATER 100 ML IVPB SCH ×14 (00:52→23:47)
[2019-06-11] MEDS: POTASSIUM CHLORIDE 20 MEQ in WATER FOR INJECTION 1 100ML.BAG IVPB SCH ×6 (00:52→18:46)
[2019-06-11] MEDS: DOBUTamine DRIP 500 MG in DEXTROSE/WATER 1 250ML.BAG IV SCH ×2 (00:53→23:42)
[2019-06-11] MEDS: BUMETANIDE 10 MG in DEXTROSE 5% IN WATER 60 ML IV SCH ×4 (05:05→16:02)
[2019-06-11 05:31] LABS: Anisocytosis Slight; Basophils % (A) 0 %; Eosinophils % (A) 0 %; HCT 23.5 % (39.0-53.0); HGB 8.4 gm/dL (13.0-17.5); Lymphocytes # (A) 0.7 k/uL (1.0-4.8); Lymphocytes % (A) 7 %; MCH 30.5 pg (25.0-35.0); MCHC 35.6 g/dL (31.0-37.0); MCV 85.8 fL (80.0-100.0); Mean Platelet Volume 7.6; Monocytes # (A) 0.3 k/uL (0-1.0); Monocytes % (A) 3 %; Neutrophils # (A) 8.9 k/uL (1.3-7.7); Neutrophils % (A) 89 %; RBC 2.74 m/uL (4.30-5.90); RDW 17.8 % (11.5-15.5); WBC 9.9 k/uL (3.8-10.6)
[2019-06-11 05:34] LABS: Platelet Count 39 k/uL (150-450)
[2019-06-11 05:43] LABS: Calcium 8.1 mg/dL (8.4-10.2); Potassium 3.4 mmol/L (3.5-5.1)
[2019-06-11] MEDS ORDERED: POTASSIUM CHLORIDE 10 MEQ in WATER FOR INJECTION 1 100ML.BAG IVPB SCH (06:00)
[2019-06-11] MEDS ORDERED: Potassium Replacement Protocol 1 EACH MISC MISCELLANE PRN (06:33)
[2019-06-11] MEDS: LEVOTHYROXINE 112 MCG TAB PO SCH (06:34)
[2019-06-11] MEDS: MIDODRINE 5 MG TAB PO SCH ×3 (06:34→16:11)
[2019-06-11] MEDS: METOLAZONE 5 MG TAB PO SCH (08:05)
[2019-06-11] MEDS: NYSTATIN 100,000 UNIT/ML SUSP 500,000 UNIT/5 ML CUP PO SCH ×4 (08:05→23:46)
[2019-06-11] MEDS: OXYBUTYNIN XL 5 MG TAB.ER.24 PO SCH (08:05)
[2019-06-11] MEDS: PANTOPRAZOLE 40 MG/10 ML VIAL IVP SCH ×2 (08:05→23:47)
[2019-06-11] MEDS: HYDROPHILIC CREAM 180 GM TUBE TOPICAL SCH ×2 (08:05→23:48)
[2019-06-11] MEDS: SYMBICORT 160-4.5 MCG INHALER INHALATION SCH ×2 (09:25→19:53)
[2019-06-11] MEDS: IPRATROPIUM-ALBUTEROL 3 ML NEB INHALATION SCH ×3 (09:25→19:53)
--- NOTE | 2019-06-11 10:03 | P.PN ---
Subjective This is a pleasant 79 years old male with past medical history of coronary artery disease, heart failure, COPD, GERD, hyperlipidemia, osteoarthritis, benign prostatic hypertrophy, hypothyroidism, sleep apnea on CPAP/BiPAP, chronic back pain with herniated disc. Patient has been in the ICU for several days for septic shock secondary to endocarditis with MSSA, complicated by acute congestive heart failure with ejection fraction 30%. Also patient has worsening creatinine up to 3.4, baseline creatinine is 1.1 Patient is tachycardic and hypotensive, he is on pressors. Potassium is low at 2.8, being replaced, creatinine is elevated at 3.4, baseline is around 1.2. Sugar is controlled. WBC is 9.6, hemoglobin 6.8 which is been going on for a f ew days. 06/08/2019 Patient is with cup and sitting in the chair, he still feels generally weak, his hematocrit was stopped today and his blood pressure is holding up, current blood pressure is 84/66 and biopsies 69, distal and dobutamine drip at 5, he has left- sided PICC line. His hemoglobin is up today to 7.1, creatinine 3.5. Retail Key Holder evaluation is appreciated 06/09/2019 Patient is resting in bed not in distress however he looks more lethargic today. He is afebrile however his blood pressure is 120/72 and slightly tachycardic at 100 bpm, patient today has adequate a drop in his hemoglobin down from 7.10 to 5.6, patient remains in the ICU because of his physical conditions and they get into units of blood transfusion. Potassium is also on the low side with 2.9 was coming to be replaced, low sodium at 135. Creatinine is still elevated at 3.5. Albumin was started yesterday and today he was started on Protonix twice daily. 06/10/2019 Patient in the ICU, distal and critical condition. However he is awake and answers some questions appropriately and follow command however remains confused and weak. He is hemodynamically stable and he is saturating 91% on 6 L oxygen by high flow cannula. Patient remains afebrile. Labs reviewed today showing hemoglobin of 8.2, his platelets today is 40, after receiving several units of blood transfusion, no leukocytosis and WBC is 9.5K, sodium 135, creatinine 2.8 slightly lower than yesterday. He has bilateral leg edema. Patient remains on Bumex and dobutamine drips however quit. His blood pressure this morning was 101/61. His heparin and aspirin will discontinue it and patient was placed on Protonix 40 mg twice daily 06/11/2019 06/11/2019 Patient remains in the ICU, clinically looks the same is still confused and gene rally weak. On exam he has bilateral leg edema about 2+. He remains in the Bumex at 1 and dobutamine at 5, his vitals are stable history old and respiratory failure needed for liters of oxygen, blood pressure is more stable, chest x-ray were suspicious for developing pneumonia in the right lung base. However has no leukocytosis. His creatinine 3.0 which is around the same. Hemoglobin stable at 8.4 and platelets stable at 39, potassium 3.4 which is been replaced. He is having brown stools with some little black however his hemoglobin is stable, discussed with the staff Review of systems CONSTITUTIONAL: No fever, no malaise, no fatigue. HEENT: No recent visual problems or hearing problems. Denied any sore throat. CARDIOVASCULAR: No orthopnea, PND, no palpitations, no syncope. PULMONARY: no cough, no hemoptysis. GASTROINTESTINAL: No diarrhea, no nausea, no vomiting, no abdominal pain. Normoactive bowel sounds. NEUROLOGICAL: No headaches, no weakness, no numbness. HEMATOLOGICAL: Denies any bleeding or petechiae. GENITOURINARY: Denies any burning micturition, frequency, or urgency. MUSCULOSKELETAL/RHEUMATOLOGICAL: Denies any joint pain, swelling, or any muscle pain. ENDOCRINE: Denies any polyuria or polydipsia. Active Medications Acetaminophen (Tylenol Tab) 650 mg PO Q4HR PRN PRN Reason: Fever and/or Mild Pain Last Admin: 06/09/19 11:47 Dose: 650 mg Documented by: Albuterol/Ipratropium (Duoneb 0.5 Mg-3 Mg/3 Ml Soln) 3 ml INHALATION RT-TID [facility] Last Admin: 06/11/19 09:25 Dose: 3 ml Documented by: Budesonide/Formoterol Fumarate (Symbicort 160-4.5 Mcg Inhaler) 2 puff INHALATION RT-BID [facility] Last Admin: 06/11/19 09:25 Dose: 2 puff Documented by: Cholestyramine Resin (Questran) 4 gm PO BID@1000,1800 [facility] Last Admin: 06/10/19 17:36 Dose: 4 gm Documented by: Darbepoetin Cyrus (Aranesp) 60 mcg SQ Q7D [facility] Last Admin: 06/07/19 18:19 Dose: 60 mcg Documented by: Hydrocortisone Sodium Succinate (Solu-Cortef) 50 mg IV Q8HR [facility] Last Admin: 06/11/19 08:04 Dose: 50 mg Documented by: Nafcillin Sodium 2 gm/ (Dextrose/Water) 100 mls @ 50 mls/hr IVPB Q4HR [facility] Last Admin: 06/11/19 08:04 Dose: 50 mls/hr Documented by: Sodium Chloride (Saline 0.9%) 1,000 mls @ 20 mls/hr IV .Q24H [facility] Last Admin: 06/10/19 17:36 Dose: Not Given Documented by: Dobutamine HCl/Dextrose 500 mg (/ IV Solution) 250 mls @ 13.275 mls/hr IV .[id number] [facility] Last Admin: 06/11/19 00:53 Dose: 5 mcg/kg/min, 13.275 mls/hr Documented by: Norepinephrine Bitartrate 8 mg (/ Sodium Chloride) 258 mls @ 8.562 mls/hr IV .Q24H [facility]IE; Protocol Last Titration: 06/07/19 20:15 Dose: 0 mcg/kg/min, 0 mls/hr Documented by: Bumetanide 10 mg/ Dextrose/ (Water) 100 mls @ 10 mls/hr IV .Q10H [facility] Last Admin: 06/11/19 05:05 Dose: 1 mg/hr, 10 mls/hr Documented by: Potassium Chloride 20 meq/ IV (Solution) 100 mls @ 50 mls/hr IVPB Q2H [facility]; Pr otocol Stop: 06/11/19 10:59 Last Admin: 06/11/19 09:08 Dose: 50 mls/hr Documented by: Levothyroxine Sodium (Synthroid) 112 mcg PO DAILY@0630 [facility] Last Admin: 06/11/19 06:34 Dose: 112 mcg Documented by: Metolazone (Zaroxolyn) 5 mg PO DAILY [facility] Last Admin: 06/11/19 08:05 Dose: 5 mg Documented by: Midodrine (Proamatine) 10 mg PO TID@0700,1100,1600 [facility] Last Admin: 06/11/19 06:34 Dose: 10 mg Documented by: Miscellaneous Information (Magnesium Per Protocol) 1 each MISCELLANE DAILY PRN; Protocol PRN Reason: Per Protocol Miscellaneous Information (Potassium Per Protocol) 1 each MISCELLANE DAILY PRN; Protocol PRN Reason: Per Protocol Montelukast Sodium (Singulair) 10 mg PO [facility] Last Admin: 06/10/19 21:09 Dose: 10 mg Documented by: Multi-Ingred Cream/Lotion/Oil/Oint (Triad Cream) 1 applic TOPICAL Q12HR [facility] Last Admin: 06/11/19 08:05 Dose: 1 applic Documented by: Nystatin (Mycostatin Oral Susp) 500,000 unit PO QID [facility] Last Admin: 06/11/19 08:05 Dose: 500,000 unit Documented by: Oxybutynin Chloride (Ditropan Xl) 5 mg PO DAILY [facility] Last Admin: 06/11/19 08:05 Dose: 5 mg Documented by: Pantoprazole Sodium (Protonix) 40 mg IVP BID [facility] Last Admin: 06/11/19 08:05 Dose: 40 mg Documented by: Sertraline HCl (Zoloft) 50 mg PO [facility] Last Admin: 06/10/19 21:09 Dose: 50 mg Documented by: Sodium Chloride (Mary Esther Nasal Gel) 1 applic TOPICAL Q4HR PRN PRN Reason: Dry Nasal Passages Sodium Chloride (Saline Flush) 10 ml IV Q4HR PRN PRN Reason: PICC Line Sodium Chloride (Saline Flush) 10 ml IV WEEKLY [facility] Last Admin: 06/04/19 08:58 Dose: 10 ml Documented by: Sodium Chloride (Saline Flush) 20 ml IV Q4HR PRN PRN Reason: PICC Line Objective - Vital Signs Vital signs: Vital Signs Temp 97.7 F 06/11/19 08:00 Pulse 93 06/11/19 09:43 Resp 20 06/11/19 09:00 BP 105/64 06/11/19 09:00 Pulse Ox 94 L 06/11/19 09:00 Intake & Output 06/10/19 06/11/19 06/11/19 18:59 06:59 18:59 Intake Total 980 1022.667 380 Output Total 6170 2575 550 Balance -9620 -1552.333 -170 Weight 75.5 kg 72.2 kg Intake: IV 420 320 130 0.9 120 120 30 Nafcillin 2 gm In 300 200 100 Dextrose 5% in Water 100 ml @ 50 mls/hr IVPB Q4HR [facility] Rx#:[id number] Intake, IV Titration 200 642.667 150 Amount Bumetanide 10 mg In 192.667 Dextrose 5% in Water 60 ml @ 1 MG/HR 10 mls/hr IV .Q10H [facility] Rx#:[id number] DOBUTamine DRIP 500 mg In 250 Dextrose/Water 1 250ml. bag @ 5 MCG/KG/MIN 13.275 mls/hr IV .[id number] [facility] Rx#:[id number] Potassium Chloride 20 meq 200 100 In Water For Injection 1 100ml.bag @ 50 mls/hr IVPB Q2H [facility] Rx#: [id number] Potassium Chloride 20 meq 100 In Water For Injection 1 100ml.bag @ 50 mls/hr IVPB Q2H [facility] Rx#: [id number] Potassium Chloride 20 meq 150 In Water For Injection 1 100ml.bag @ 50 mls/hr IVPB Q2H [facility] Rx#: [id number] Oral 360 60 100 Output: Urine 3030 2575 550 Other: Voiding Method Indwelling Catheter Indwelling Catheter Indwelling Catheter # Bowel Movements 1 1 1 - Exam -GENERAL: The patient is drowsy, answers simple questions, not in any acute distress. Thin built and generally weak HEENT: Pupils are round and equally reacting to light. EOMI. No scleral icterus. No conjunctival pallor. Normocephalic, atraumatic. No pharyngeal erythema. No thyromegaly. CARDIOVASCULAR: S1 and S2 present. No murmurs, rubs, or gallops. PULMONARY: Chest is clear to auscultation, no wheezing or crackles. ABDOMEN: Soft, nontender, nondistended, normoactive bowel sounds. No palpable organomegaly. MUSCULOSKELETAL: No joint swelling or deformity. EXTREMITIES: No cyanosis, clubbing, or pedal edema. NEUROLOGICAL: Gross neurological examination did not reveal any focal deficits. SKIN: No rashes. no petechiae. - Labs CBC & Chem 7: 06/11/19 05:00 06/11/19 05:00 Labs: Abnormal Lab Results - Last 24 Hours (Table) 06/10/19 06/10/19 06/10/19 Range/Units 05:20 15:15 23:00 RBC (4.30-5.90) m/uL Hgb (13.0-17.5) gm/dL Hct (39.0-53.0) % RDW (11.5-15.5) % Plt Count (150-450) k/uL Neutrophils # (1.3-7.7) k/uL Lymphocytes # (1.0-4.8) k/uL Sodium (137-145) mmol/L Potassium 2.9 L 3.2 L (3.5-5.1) mmol/L Chloride (98-107) mmol/L Carbon Dioxide (22-30) mmol/L BUN (9-20) mg/dL Creatinine (0.66-1.25) mg/dL Glucose (74-99) mg/dL Calcium (8.4-10.2) mg/dL Lactate Dehydrogenase 1284 H (313-618) U/L 06/11/19 06/11/19 Range/Units 05:00 05:00 RBC 2.74 L (4.30-5.90) m/uL Hgb 8.4 L (13.0-17.5) gm/dL Hct 23.5 L (39.0-53.0) % RDW 17.8 H (11.5-15.5) % Plt Count 39 L (150-450) k/uL Neutrophils # 8.9 H (1.3-7.7) k/uL Lymphocytes # 0.7 L (1.0-4.8) k/uL Sodium 136 L (137-145) mmol/L Potassium 3.4 L (3.5-5.1) mmol/L Chloride 88 L (98-107) mmol/L Carbon Dioxide 38 H (22-30) mmol/L BUN 80 H (9-20) mg/dL Creatinine 3.08 H (0.66-1.25) mg/dL Glucose 110 H (74-99) mg/dL Calcium 8.1 L (8.4-10.2) mg/dL Lactate Dehydrogenase (313-618) U/L Assessment and Plan Assessment: Infective endocarditis, continue with antibiotics Acute blood loss anemia, status post several units of blood transfusion Acute on chronic congestive heart failure Combined Septic and cardiogenic shock secondary to above, continue with pressors as needed Acute kidney injury History of coronary artery disease COPD, not in acute exacerbation GERD Bicytopenia with anemia and thrombocytopenia History of bladder cancer, status post TURP Hyperlipidemia Osteoarthritis Benign prostatic hypertrophy Hypothyroidism Sleep apnea Chronic back pain with herniated disc Generalized weakness Plan: This is a pleasant 79 years old male who presents with septic and cardiogenic shock, he has infective endocarditis. Continue with the current antibiotics. Continue with diuretic. Blood transfusion to keep hemoglobin above 7. Continue on a pressors as per critical care team recommendations. Follow-up recommendations of nephrology and infectious disease team as well as washer repairman.Labs and medication were reviewed.. Continue same treatment. Continue with symptomatic treatment. Resume home medication. Monitor lytes and vitals. DVT and GI prophylaxis. Further recommendations of the clinical course of the patient DVT prophylaxis: Discontinue Subcutaneous heparin in view of possible GI bleed and thrombocytopenia GI Prophylaxis: PPI Prognosis is guarded CODE STATUS: DO NOT RESUSCITATE
[2019-06-11] MEDS: CHOLESTYRAMINE (WITH SUGAR) 4 GM PACKET PO SCH ×2 (11:18→16:18)
--- NOTE | 2019-06-11 11:23 | PN ---
PROGRESS NOTE Mr. Carolee Pedersen is a gentleman with multivalvular endocarditis, remains hemodynamically stable, making urine and communicates in a limited fashion, but appears not to be in any distress. Vitals are stable. No JVD. S1, S2 heard normally. Systolic murmur is evident. Lungs reveal diminished air entry. Abdomen and lower extremity exam is unchanged. The plan is from a cardiac standpoint, no surgical intervention. He should therefore be able to go to an extended care facility with intravenous antibiotics as advised by Infectious Disease. No other intervention is necessary from a cardiac standpoint. MMODL / IJN: [id number] /
--- NOTE | 2019-06-11 14:48 | P.PN ---
Subjective Progress Note Date: 06/11/19 Principal diagnosis: Sepsis, gram-positive bacteremia , and endocarditis. On 06/09/2019, I'm seeing this patient for a follow-up. The patient is still struggling as the patient is being treated for infective endocarditis, a bibasilar infection with staph and the patient is currently on IV nafcillin. The patient is on 6 L of oxygen by nasal cannula. He was in full-blown decom pensated heart failure. He was treated with a combination of dobutamine and he was given pressors in the form of norepinephrine infusion, IV Bumex. He improved. Pressors have been discontinued for now with exception of dobutamine still being used for augmentation of the cardiac output. The patient is still a Bumex drip at 1 mg an hour. I have noticed considerable amount of improvement in his urine output over the past 48 hours and the patient's lower extremity edema is improving and the renal function is slowly improving also. He is also on Zaroxolyn. Nevertheless, this morning, the patient developed a drop in hemoglobin down to 5.6. He did also have a melanotic stool. Suspect upper GI bleeding. Note that hemoglobin are not was dropping throughout the past week. The patient received 2 units of packed RBC for hemoglobin of less than 7. For now, the patient will receive a total of 2 units of RBC. His platelet counts have been dropping and this has been a multifactorial event. The patient is on aspirin. Subcu heparin has been discontinued. He is on nafcillin. The thromb ocytopenia could be also consumptive. Nevertheless, despite this all events, he is holding his own blood pressure and there has been no significant hypotension. No chest pain. No nausea vomiting. Mental status is gradually improving. He was able to follow commands and answering questions appropriately on today's evaluation. No previous history of GI bleed. His most recent platelet count is at 40,000 slightly lower compared to yesterday. On 06/10/2019, patient is still in the ICU, receiving treatment for endocarditis, patient remains on IV nafcillin. He is on few liters nasal cannula, and remains on dobutamine, is also on IV Bumex, not requiring norepinephrine at this point. His urine output seems to be excellent. Chest x-ray continues to show evidence of mild interstitial edema. CBC is relatively normal hemoglobin is 8.2 WBC count is 9.5 left lites are normal renal profile is abnormal with BUN of 88 creatinine 2.89. Reevaluated today on 06/11/2019, patient is basically about the same, generally weak, continues to have intermittent episodes of confusion oriented to place but not to year. Remains on Bumex at 1 mg/h as well as Dobutrex 5 mcg/kg/m. Patient is hemodynamically stable, denies being short of breath denies any chest pain. His antibiotics have been addressed by infectious disease on the case. Considering the patient is hemodynamically stable, and no major change in the last couple of days, I will transfer the patient to a cardiac floor on telemetry. WBC count is 9.9 hemoglobin 8.4 lites are normal renal profile showed a BUN of 80 creatinine 3.08. This is being addressed and followed by nephrology. Objective - Vital Signs Vital signs: Vital Signs Temp 98 F 06/11/19 12:00 Pulse 96 06/11/19 13:16 Resp 19 06/11/19 12:00 BP 102/63 06/11/19 12:00 Pulse Ox 94 L 06/11/19 12:00 Intake & Output 06/10/19 06/11/19 06/11/19 18:59 06:59 18:59 Intake Total 980 1022.667 640 Output Total 3030 2575 1550 Balance -0 -1552.333 -910 Weight 75.5 kg 72.2 kg Intake: IV 420 320 270 0.9 120 120 70 Nafcillin 2 gm In 300 200 200 Dextrose 5% in Water 100 ml @ 50 mls/hr IVPB Q4HR [facility] Rx#:[id number] Intake, IV Titration 200 642.667 150 Amount Bumetanide 10 mg In 192.667 Dextrose 5% in Water 60 ml @ 1 MG/HR 10 mls/hr IV .Q10H [facility] Rx#:[id number] DOBUTamine DRIP 500 mg In 250 Dextrose/Water 1 250ml. bag @ 5 MCG/KG/MIN 13.275 mls/hr IV .[id number] [facility] Rx#:[id number] Potassium Chloride 20 meq 200 100 In Water For Injection 1 100ml.bag @ 50 mls/hr IVPB Q2H [facility] Rx#: [id number] Potassium Chloride 20 meq 100 In Water For Injection 1 100ml.bag @ 50 mls/hr IVPB Q2H [facility] Rx#: [id number] Potassium Chloride 20 meq 150 In Water For Injection 1 100ml.bag @ 50 mls/hr IVPB Q2H [facility] Rx#: [id number] Oral 360 60 220 Output: Urine 3030 2575 1550 Other: Voiding Method Indwelling Catheter Indwelling Catheter Indwelling Catheter # Bowel Movements 1 1 1 - Exam Physical Exam: Revealed 79-year-old white male confused, on 3 L nasal cannula Head: Atraumatic, normocephalic. HEENT:[Neck is supple.] [No neck masses.] [No thyromegaly.] [No JVD.] PERRLA, EOMI, dry mucous membranes, no thrush. Chest: [Symmetrical chest expansion, fine crackles bilaterally no rhonchi and no wheezes. Cardiac Exam: [Normal S1 and S2, no S3 gallop, 2/6 systolic murmur thought the precordium. Abdomen: [Soft, nontender, no megaly, no rebound, no guarding, normal bowel sounds.] Extremities: [No clubbing, 1+ bipedal edema, no cyanosis.] Neurological Exam: [No focal neurologic deficit.] Alert and oriented 3. Psychiatric: Normal mood, affect and normal mental status examination. Skin: No rashes. Musculoskeletal: Muscle strength and tone are normal. Lymphatics: No lymphadenopathy. - Labs CBC & Chem 7: 06/11/19 05:00 06/11/19 05:00 Labs: Abnormal Lab Results - Last 24 Hours (Table) 06/10/19 06/10/19 06/10/19 Range/Units 05:20 15:15 23:00 RBC (4.30-5.90) m/uL Hgb (13.0-17.5) gm/dL Hct (39.0-53.0) % RDW (11.5-15.5) % Plt Count (150-450) k/uL Neutrophils # (1.3-7.7) k/uL Lymphocytes # (1.0-4.8) k/uL Haptoglobin <8.0 L (31.2-198.0) mg/dL Sodium (137-145) mmol/L Potassium 2.9 L 3.2 L (3.5-5.1) mmol/L Chloride (98-107) mmol/L Carbon Dioxide (22-30) mmol/L BUN (9-20) mg/dL Creatinine (0.66-1.25) mg/dL Glucose (74-99) mg/dL Calcium (8.4-10.2) mg/dL 06/11/19 06/11/19 Range/Units 05:00 05:00 RBC 2.74 L (4.30-5.90) m/uL Hgb 8.4 L (13.0-17.5) gm/dL Hct 23.5 L (39.0-53.0) % RDW 17.8 H (11.5-15.5) % Plt Count 39 L (150-450) k/uL Neutrophils # 8.9 H (1.3-7.7) k/uL Lymphocytes # 0.7 L (1.0-4.8) k/uL Haptoglobin (31.2-198.0) mg/dL Sodium 136 L (137-145) mmol/L Potassium 3.4 L (3.5-5.1) mmol/L Chloride 88 L (98-107) mmol/L Carbon Dioxide 38 H (22-30) mmol/L BUN 80 H (9-20) mg/dL Creatinine 3.08 H (0.66-1.25) mg/dL Glucose 110 H (74-99) mg/dL Calcium 8.1 L (8.4-10.2) mg/dL Assessment and Plan Assessment: 1 septic shock secondary to MSSA infective endocarditis, remains on nafcillin 2 acute on chronic systolic congestive heart failure ejection fraction of 50% remains on dobutamine and Bumex. 3 acute hypoxic respiratory failure secondary to pulmonary edema presently on 6 L nasal cannula 4 acute kidney injury, secondary to acute tubular necrosis and hypotension 5 chronic obstructive pulmonary disease with chronic hypoxia and hypercapnia 6 history of bladder cancer post-TURB 7 hypertension 8 hypothyroidism 9 chronic anemia, multifactorial 10 thrombocytopenia, consumptive in nature possibly drug induced 11 medical debility, and CODE STATUS remains DO NOT RESUSCITATE. Recommendation: Continue present supportive care as up above, continue antibiotics, continue dobutamine and Bumex, and I will transfer the patient today to a monitor bed on selective. We'll continue to follow, long-term prognosis is extremely poor and guarded. Time with Patient: Less than 30
[2019-06-11] MEDS: SODIUM CHLORIDE 0.9% 1,000 ML IV SCH (17:17)
--- NOTE | 2019-06-11 18:25 | PN ---
PROGRESS NOTE The patient is an 79-year-old white male admitted to the hospital with infective endocarditis decompensated heart disease. The patient was transferred from the intensive care unit today. He is resting comfortably. Denies any complaints. Family is at the bedside. No further episodes of black tarry stools. The patient is tolerating diet well. PHYSICAL EXAMINATION: He appears comfortable, quite sleepy. VITAL SIGNS: Blood pressure 107/56, pulse rate 98, temperature 97.5. HEENT examination unremarkable. Conjunctivae pink. Sclerae anicteric. Oral cavity no lesions. NECK: No JVD or lymph node enlargement. CHEST: Clear to auscultation. HEART: Regular rate and rhythm. Heart murmur heard. ABDOMEN: Soft. Bowel sounds are positive. EXTREMITIES: No pedal edema. SKIN: No rashes. NEUROLOGIC: Alert and oriented x3. No focal deficits. LABS FROM TODAY: WBC 9.9, hemoglobin 8.4, platelets 39,000. BUN is 80, creatinine 3.08. Sodium 136, potassium 3.4, chloride 88, CO2 38. IMPRESSION: 1. Anemia requiring 5 units of PRBC transfusion in the last 10 days he had a couple of episodes of black tarry stools while in the intensive care unit; none after he was transferred to the regular floor. He remains hemodynamically stable. Hemoglobin remains stable at 8.4 g/dL. 2. Infective endocarditis, on antibiotics on IV nafcillin for MSSA and Dr. Brooks is following the patient closely. 3. Decompensated heart disease. RECOMMENDATION: 1. Continue with Protonix 40 mg q.12 hours. 2. Monitor CBC on a daily basis. 3. No plans for any endoscopic intervention at the present time. At this time we will sign off. Please call us if needed if he has drop in hemoglobin. Thank you for this consultation. MMODL / IJN: [id number] /
--- NOTE | 2019-06-11 19:40 | PN ---
PROGRESS NOTE Patient is seen for followup for acute kidney injury and volume overload. Patient has been maintained on Bumex drip and Lasix drip. He has had some improvement in his renal function. However, overall general condition has not changed significantly. Patient has not been eating much. Repeat blood cultures have been negative. On examination this morning, patient is comfortable. He denies any significant complaints. Blood pressure this morning was 97/65, heart rate 98 per minute. Patient is afebrile. EXAMINATION OF THE HEART: S1 and S2. EXAMINATION OF LUNGS: Bilateral breath sounds are heard. ABDOMEN: Soft, non-tender. Examination of lower extremities shows edema 2+ bilaterally, mainly in the feet. Lower extremity edema is now improved. DIRECTOR ELECTRICAL ENGINEERING exam cannot be assessed. Labs show sodium 136, potassium 3.4, BUN 80, serum creatinine 3.08. Potassium was 3.2. ASSESSMENT: 1. Acute kidney injury, cardiorenal as well as component of acute tubular necrosis from sepsis and hypotension; renal function fairly stable. Urine output remains at about 300 to 150 mL/hour. 2. Endocarditis, maintained on antibiotics. Repeat blood culture is negative. 3. Severe cardiomyopathy, maintained on dobutamine. 4. Fluid overload with some improvement. However, overall general condition remains poor. PLAN: Continue with current drips. Overall prognosis is poor. Case has been discussed with family previously and they would like to continue with aggressive medical treatment. MMODL / IJN: [id number] /
--- NOTE | 2019-06-11 23:27 | PN ---
PROGRESS NOTE DATE OF SERVICE: 06/11/2019. REASON FOR FOLLOWUP: MSSA mitral valve endocarditis. INTERVAL HISTORY: The patient is currently afebrile. The patient has been out of the ICU on a cardiac floor, hemodynamically stable. No chest pain. No cough. No abdominal pain or any worsening diarrhea reported. PHYSICAL EXAMINATION: Blood pressure 107/56, pulse of 94, temperature 97.5. He is 96% on 3 L nasal cannula. General description is an elderly male lying in bed in no distress. RESPIRATORY SYSTEM: Unlabored breathing. Clear to auscultation anteriorly. HEART: S1, S2. Regular rate and rhythm. ABDOMEN: Soft. No tenderness. LABS: Hemoglobin is 8.4, white count 9.9, BUN of 80, creatinine 3.08. Blood cultures 05/26 and 06/02 have been negative. 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 Follow-up blood cultures have been negative in this patient who did have evidence of multi-organ failure, currently on management of multiple consultants. The patient's repeat culture has been negative and he did have a PICC line. Currently getting nafcillin. Transition to Cefazolin on discharge to finish his 6-week course of therapy and continue with supportive care. MMODL / IJN: [id number] /
[2019-06-11] MEDS: POTASSIUM CHLORIDE 10 MEQ in WATER FOR INJECTION 1 100ML.BAG IVPB SCH (23:41)
[2019-06-11] MEDS: MONTELUKAST 10 MG TAB PO SCH (23:46)
[2019-06-11] MEDS: SERTRALINE 50 MG TAB PO SCH (23:47)
[2019-06-12] MEDS: POTASSIUM CHLORIDE 10 MEQ in WATER FOR INJECTION 1 100ML.BAG IVPB SCH ×2 (02:05→02:57)
[2019-06-12] MEDS: BUMETANIDE 10 MG in DEXTROSE 5% IN WATER 60 ML IV SCH ×2 (02:06)
[2019-06-12] MEDS: NAFCILLIN 2 GM in DEXTROSE 5% IN WATER 100 ML IVPB SCH ×10 (02:58→21:07)
[2019-06-12] MEDS: LEVOTHYROXINE 112 MCG TAB PO SCH (06:05)
[2019-06-12] MEDS: MIDODRINE 5 MG TAB PO SCH ×3 (06:05→16:37)
[2019-06-12 06:59] LABS: Anisocytosis Slight; Basophils % (A) 0 %; Eosinophils % (A) 0 %; HCT 25.2 % (39.0-53.0); HGB 8.4 gm/dL (13.0-17.5); Hypochromasia Slight; Lymphocytes # (A) 0.9 k/uL (1.0-4.8); Lymphocytes % (A) 7 %; MCHC 33.4 g/dL (31.0-37.0); MCV 89.8 fL (80.0-100.0); Mean Platelet Volume 7.9; Monocytes # (A) 0.3 k/uL (0-1.0); Monocytes % (A) 2 %; Neutrophils # (A) 11.9 k/uL (1.3-7.7); Neutrophils % (A) 90 %; RDW 18.7 % (11.5-15.5); WBC 13.2 k/uL (3.8-10.6)
[2019-06-12 07:10] LABS: Platelet Count 45 k/uL (150-450)
[2019-06-12 07:11] LABS: Calcium 8.1 mg/dL (8.4-10.2); Potassium 3.2 mmol/L (3.5-5.1)
[2019-06-12] MEDS: SYMBICORT 160-4.5 MCG INHALER INHALATION SCH ×2 (07:23→20:25)
[2019-06-12] MEDS: IPRATROPIUM-ALBUTEROL 3 ML NEB INHALATION SCH ×3 (07:23→20:25)
--- NOTE | 2019-06-12 08:24 | P.PN ---
Subjective This is a pleasant 79 years old male with past medical history of coronary artery disease, heart failure, COPD, GERD, hyperlipidemia, osteoarthritis, benign prostatic hypertrophy, hypothyroidism, sleep apnea on CPAP/BiPAP, chronic back pain with herniated disc. Patient has been in the ICU for several days for septic shock secondary to endocarditis with MSSA, complicated by acute congestive heart failure with ejection fraction 30%. Also patient has worsening creatinine up to 3.4, baseline creatinine is 1.1 Patient is tachycardic and hypotensive, he is on pressors. Potassium is low at 2.8, being replaced, creatinine is elevated at 3.4, baseline is around 1.2. Sugar is controlled. WBC is 9.6, hemoglobin 6.8 which is been going on for a f ew days. 06/08/2019 Patient is with cup and sitting in the chair, he still feels generally weak, his hematocrit was stopped today and his blood pressure is holding up, current blood pressure is 84/66 and biopsies 69, distal and dobutamine drip at 5, he has left- sided PICC line. His hemoglobin is up today to 7.1, creatinine 3.5. Process Steward evaluation is appreciated 06/09/2019 Patient is resting in bed not in distress however he looks more lethargic today. He is afebrile however his blood pressure is 120/72 and slightly tachycardic at 100 bpm, patient today has adequate a drop in his hemoglobin down from 7.10 to 5.6, patient remains in the ICU because of his physical conditions and they get into units of blood transfusion. Potassium is also on the low side with 2.9 was coming to be replaced, low sodium at 135. Creatinine is still elevated at 3.5. Albumin was started yesterday and today he was started on Protonix twice daily. 06/10/2019 Patient in the ICU, distal and critical condition. However he is awake and answers some questions appropriately and follow command however remains confused and weak. He is hemodynamically stable and he is saturating 91% on 6 L oxygen by high flow cannula. Patient remains afebrile. Labs reviewed today showing hemoglobin of 8.2, his platelets today is 40, after receiving several units of blood transfusion, no leukocytosis and WBC is 9.5K, sodium 135, creatinine 2.8 slightly lower than yesterday. He has bilateral leg edema. Patient remains on Bumex and dobutamine drips however quit. His blood pressure this morning was 101/61. His heparin and aspirin will discontinue it and patient was placed on Protonix 40 mg twice daily 06/11/2019 06/11/2019 Patient remains in the ICU, clinically looks the same is still confused and gene rally weak. On exam he has bilateral leg edema about 2+. He remains in the Bumex at 1 and dobutamine at 5, his vitals are stable history old and respiratory failure needed for liters of oxygen, blood pressure is more stable, chest x-ray were suspicious for developing pneumonia in the right lung base. However has no leukocytosis. His creatinine 3.0 which is around the same. Hemoglobin stable at 8.4 and platelets stable at 39, potassium 3.4 which is been replaced. He is having brown stools with some little black however his hemoglobin is stable, discussed with the staff 06/12/19 Patient is transferred to the general medical floor. His sitting in bed slightly tachypneic, confused which is been the case since I evaluated him. No chest pain or abdominal pain. Tolerating diet well. He looks weak and tired. Patient Anastacio looks stable with blood pressure 126/79, and saturating 94% on room air. He has mild leukocytosis today of 13.2 K, hemoglobin stable at 8.4, platelets 40 5K, sodium 131, potassium 3.2, creatinine is down to 2.7. Patient remains on Bumex drip at 1 and dobutamine drip at 5. Also his on nafcillin for his [facility] office mitral valve with MSSA. Objective - Vital Signs Vital signs: Vital Signs Temp 98.4 F 06/12/19 04:00 Pulse 92 06/12/19 07:35 Resp 20 06/12/19 04:00 BP 126/79 06/12/19 04:00 Pulse Ox 94 L 06/12/19 04:00 Intake & Output 06/11/19 06/12/19 06/12/19 18:59 06:59 18:59 Intake Total 750 850 Output Total 1874 1800 1100 Balance -6152 -211 -1100 Weight 65.5 kg Intake: IV 280 200 0.9 80 Nafcillin 2 gm In 200 200 Dextrose 5% in Water 100 ml @ 50 mls/hr IVPB Q4HR [facility] Rx#:[id number] Intake, IV Titration 250 550 Amount Bumetanide 10 mg In 100 100 Dextrose 5% in Water 60 ml @ 1 MG/HR 10 mls/hr IV .Q10H [facility] Rx#:[id number] DOBUTamine DRIP 500 mg In 250 Dextrose/Water 1 250ml. bag @ 5 MCG/KG/MIN 13.275 mls/hr IV .[id number] [facility] Rx#:[id number] Potassium Chloride 10 meq 200 In Water For Injection 1 100ml.bag @ 100 mls/hr IVPB Q1H [facility] Rx#: [id number] Potassium Chloride 20 meq 150 In Water For Injection 1 100ml.bag @ 50 mls/hr IVPB Q2H [facility] Rx#: [id number] Oral 220 100 Output: Urine 1874 1800 1100 Other: Voiding Method Indwelling Catheter Indwelling Catheter # Voids 0 # Bowel Movements 1 - Exam -GENERAL: The patient is drowsy, answers simple questions, not in any acute distress. Thin built and generally weak HEENT: Pupils are round and equally reacting to light. EOMI. No scleral icterus. No conjunctival pallor. Normocephalic, atraumatic. No pharyngeal erythema. No thyromegaly. CARDIOVASCULAR: S1 and S2 present. No murmurs, rubs, or gallops. PULMONARY: Chest is clear to auscultation, no wheezing or crackles. ABDOMEN: Soft, nontender, nondistended, normoactive bowel sounds. No palpable organomegaly. MUSCULOSKELETAL: No joint swelling or deformity. EXTREMITIES: No cyanosis, clubbing, or pedal edema. NEUROLOGICAL: Gross neurological examination did not reveal any focal deficits. SKIN: No rashes. no petechiae. - Labs CBC & Chem 7: 06/12/19 06:06 06/12/19 06:06 Labs: Abnormal Lab Results - Last 24 Hours (Table) 06/10/19 06/11/19 06/11/19 Range/Units 05:20 14:20 22:04 WBC (3.8-10.6) k/uL RBC (4.30-5.90) m/uL Hgb (13.0-17.5) gm/dL Hct (39.0-53.0) % RDW (11.5-15.5) % Plt Count (150-450) k/uL Neutrophils # (1.3-7.7) k/uL Lymphocytes # (1.0-4.8) k/uL Haptoglobin <8.0 L (31.2-198.0) mg/dL Sodium (137-145) mmol/L Potassium 3.2 L 3.1 L (3.5-5.1) mmol/L Chloride (98-107) mmol/L Carbon Dioxide (22-30) mmol/L BUN (9-20) mg/dL Creatinine (0.66-1.25) mg/dL Glucose (74-99) mg/dL Calcium (8.4-10.2) mg/dL 06/12/19 06/12/19 Range/Units 06:06 06:06 WBC 13.2 H (3.8-10.6) k/uL RBC 2.80 L (4.30-5.90) m/uL Hgb 8.4 L (13.0-17.5) gm/dL Hct 25.2 L (39.0-53.0) % RDW 18.7 H (11.5-15.5) % Plt Count 45 L (150-450) k/uL Neutrophils # 11.9 H (1.3-7.7) k/uL Lymphocytes # 0.9 L (1.0-4.8) k/uL Haptoglobin (31.2-198.0) mg/dL Sodium 131 L (137-145) mmol/L Potassium 3.2 L (3.5-5.1) mmol/L Chloride 86 L (98-107) mmol/L Carbon Dioxide 34 H (22-30) mmol/L BUN 82 H (9-20) mg/dL Creatinine 2.75 H (0.66-1.25) mg/dL Glucose 128 H (74-99) mg/dL Calcium 8.1 L (8.4-10.2) mg/dL Assessment and Plan Assessment: Infective endocarditis, continue with antibiotics Acute blood loss anemia, status post several units of blood transfusion Acute on chronic congestive heart failure Combined Septic and cardiogenic shock secondary to above, continue with pressors as needed Acute kidney injury History of coronary artery disease COPD, not in acute exacerbation GERD Bicytopenia with anemia and thrombocytopenia History of bladder cancer, status post TURP Hyperlipidemia Osteoarthritis Benign prostatic hypertrophy Hypothyroidism Sleep apnea Chronic back pain with herniated disc Generalized weakness Plan: This is a pleasant 79 years old male who presents with septic and cardiogenic shock, he has infective endocarditis. Continue with the current antibiotics. Continue with diuretic. Blood transfusion to keep hemoglobin above 7. Continue on a pressors as per critical care team recommendations. Follow-up recommendations of nephrology and infectious disease team as well as bi developer.Labs and medication were reviewed.. Continue same treatment. Continue with symptomatic treatment. Resume home medication. Monitor lytes and vitals. DVT and GI prophylaxis. Further recommendations of the clinical course of the patient DVT prophylaxis: Discontinue Subcutaneous heparin in view of possible GI bleed and thrombocytopenia GI Prophylaxis: PPI Prognosis is guarded CODE STATUS: DO NOT RESUSCITATE
[2019-06-12] MEDS: HYDROCORTISONE SUCCINATE 100 MG/2 ML VIAL IV SCH ×2 (08:44→16:35)
[2019-06-12] MEDS: PANTOPRAZOLE 40 MG/10 ML VIAL IVP SCH ×2 (08:45→21:11)
[2019-06-12] MEDS: OXYBUTYNIN XL 5 MG TAB.ER.24 PO SCH (08:45)
--- NOTE | 2019-06-12 09:52 | XR ---
EXAMINATION TYPE: XR chest 1V portable DATE OF EXAM: 06/12/2019 CLINICAL HISTORY: Difficulty breathing progress study. TECHNIQUE: Single AP portable upright view of the chest is obtained. COMPARISON: Chest x-ray from 2 days earlier and older studies. FINDINGS: Stable left-sided PICC line. Cardiac silhouette size is stable and within normal limits wi th atherosclerotic and ectatic aorta. Overlying EKG leads are redemonstrated. Chronic parenchymal lashonda nges with bibasilar opacities. Osseous structures remain demineralized with underlying scoliotic curv ature and multilevel spurring. IMPRESSION: Overall stable findings, chronic parenchymal changes with patchy bibasilar acute infilt rate and/or atelectasis and suspected small to tiny bilateral pleural effusions.
[2019-06-12] MEDS: HYDROPHILIC CREAM 180 GM TUBE TOPICAL SCH ×2 (10:31→21:08)
[2019-06-12] MEDS: CHOLESTYRAMINE (WITH SUGAR) 4 GM PACKET PO SCH ×2 (10:31→16:38)
[2019-06-12] MEDS: METOLAZONE 5 MG TAB PO SCH (10:31)
[2019-06-12] MEDS: POTASSIUM CHLORIDE ER 20 MEQ TAB.ER PO SCH ×3 (10:41→19:26)
[2019-06-12] MEDS: NYSTATIN 100,000 UNIT/ML SUSP 500,000 UNIT/5 ML CUP PO SCH ×4 (10:42→21:11)
--- NOTE | 2019-06-12 11:49 | P.PN ---
Subjective Progress Note Date: 06/12/19 Principal diagnosis: Acute septic shock secondary to right lower lobe pneumonia, this is likely healthcare acquired pneumonia and gram-positive bacteremia. MSSA. This is a 79-year-old white male patient of Dr. Wallace, with extensive medical history, was recently hospitalized for acute exacerbation of systolic congestive heart failure with an EF of 30-35%, acute hypoxic failure related to CHF, acute on chronic renal failure. Following his discharge on 05/16/2019 patient went to [facility] for rehab. On 05/20/2019 patient was brought into the hospital for evaluation of worsening shortness of breath, fever chills, increased sputum production. Denied any nausea or vomiting, patient also complained of penile pain, and dysuria. Patient does have a history of COPD on home oxygen at 4 L. Other medical history includes CAD with history of bypass grafting, bladder c ancer, patient follows with Dr. Calvert from urology, hyperlipidemia, previous myocardial infarction, osteoarthritis, sleep apnea on CPAP therapy, prostate disorder, hypothyroidism, chronic back pain, and previous history of smoking. Chest x-ray was completed showing small bilateral pleural effusions, bibasilar atelectasis and diffuse interstitial and hazy opacities with the possibility of interstitial pneumonia, and fluid overload. Lab work was positive for leukocytosis, white blood cell count is 31.3, hemoglobin is 7.4, patient had 23% bandemia, correlation profile was within normal limits, serum sodium was 133, potassium 3.4, chloride was 92, CO2 is 31, BUN was 61, creatinine is 2.42. La ctic acid was 4.8 patient was given 2 L of IV fluids, this morning his lactic acid is 2.8, troponins were positive at 0.173, and 0.121. ProBNP was 86114, urinalysis showed large amount of blood, 1+ protein, large amount of leuk trase, rare white blood cell and rare bacteria, doubt underlying urinary tract infection. Influenza screen was negative. Patient was initially admitted to stepdown floor, this morning his febrile, with a temp of 102.2, patient is tachycardic the heart rate up to 120 BPM, blood pressures are marginal, 99/71, and subsequent one was systolic in the 80s. Patient was given additional liter bolus, broad-spectrum antibiotics were started in the form of Zosyn. Blood cul tures were sent on admission, we will obtain additional set of blood cultures, urinalysis, sputum culture. Patient is being transferred to the intensive care unit. Reevaluated today on 05/22/2019, patient remains in the ICU, I saw him yesterday, and arrange for the transferred to the ICU. During my evaluation, the patient was noted to be septic, he was transferred to the ICU and received a total of 3 L of fluids, and he was placed on a short. This time on norepinephrine for low blood pressure. Patient was on norepinephrine for few hours, today he is hemodynamically stable, feeling a bit better, chest x-ray clearly shows evidence of right lower lobe pneumonia and interstitial edema bilaterally. Hence the patient will be given a dose of Lasix, and his IV fluids will be cut down to 50 mL per hour. Blood cultures are positive for gram-positive cocci, hence vancomycin was added. In the meantime we will continue Zosyn until the final identification and sensitivity noted from the blood cultures. WBC count today is down to 23.8 hemoglobin is 8.6 electrolytes are normal BUN is 53 creatinine is 1.48, improving compared to 2.42 on admission. Troponin was noted to be 0.069. Potassium is 3.5 be corrected as per protocol. Reevaluated today on 05/23/2019, patient remains in the ICU, off norepinephrine, hemodynamically stable, urine output is marginal but improving with diuretics, and he was given a dose of Lasix earlier today. Overall the patient is slightly better compared to his presentation. Chest x-ray continues to showsome component of congestive heart failure, and some component of patchy infiltrates in the right lower lobe. Small pleural effusion is noted right greater than left.WBC count remains elevated at 25.2 hemoglobin is 10.3. Electrodes are normal BUN is improving creatinine is also improving down to 1.16.patient is off norepinephrine today. Troponin level is slightly elevated at 0.069, Patient was reevaluated today on 05/24/2019, remains in the ICU, off norepinephrine, feeling better, breathing easier, however his chest x-ray continues to show some interstitial edema Lasix was given 40 mg IV push times one. Cut down his fluid down to 50 mL per hour. Clinically the patient is feeling better, breathing a lot easier, chest x-ray is still concerning, and his blood pressure remains marginal but he normally runs a low blood pressure. WBC down to 20.9 his electrolytes are normal except for low potassium being corrected. BUN is 48 creatinine 1.18. His blood cultures came back positive for MSSA. Patient is now on nafcillin as per infectious disease on the case. Other antibiotics have been discontinued. Reevaluated today on 05/25/2019, patient remains off norepinephrine, blood pressure remains low marginal. Responds well to IV Lasix given on a daily basis as needed. IV fluids remains at 50 mL per hour. Continues to have positive blood cultures, and a transesophageal echocardiogram should be done by cardiology. His blood cultures remain positive since admission. Patient remains on antibiotics as per infectious disease on the case. Chest x-ray showed right lower lobe consolidation, and possibly a small right-sided pleural effusion. Minimal effusion noted on the left. WBC count is coming down to 15.9 it was quite elevated on admission. It was 20.9 yesterday and a 25.22 days ago. His electrolytes are normal BUN however is up to 59, and creatinine is up to 1.35, we'll continue cautious hydration and hold on diuretics. Patient does have poor LV function and the findings on his renal status could be related to diuretics as well as cardiorenal in nature. Reevaluated today on 05/26/2019, patient is back on norepinephrine today at 0.06 mcg/kg/m. Patient had low blood pressure last night, low urine output, hence he is now back on norepinephrine, and he is receiving IV fluid at 70 mL per hour. Will hold on any diuretics today. Patient continues to have positive blood cultures, initiated a cardiology consultation yesterday, not seen yet by cardiology, patient will definitely require transesophageal echocardiogram to document endocarditis and to explain his persistent positive blood cultures. Ultrasound of the chest did not show enough pleural effusion on the right side to consider safe thoracentesis. Hence no thoracentesis will be done. His transthoracic echocardiogram did show evidence of poor LV function with ejection fraction of 30-35 percent. And hopefully a transesophageal echo could be done tomorrow. Clinically the patient is slightly confused, he is not in any form of respiratory distress. Chest x-ray continues to show air space disease in the right lower lobe and small tiny right-sided pleural effusion. Also there is evidence of mild pulmonary edema. On 05/27/2019 patient seen in follow-up in the intensive care unit. He is lethargic, but easily arousable, denies any acute distress, currently on 4 L of oxygen per nasal cannula, pulse ox of 98%, afebrile, he remains on small dose of levothyroid at 2 mics per minute, and maintenance IV fluids 0.9 normal saline at a rate of 75 ML per hour, Currently on nafcillin for MSSA bacteremia, was also treated with a combination of Zosyn, Levaquin and later with cefepime which have all been discontinued now for evidence of Klebsiella pneumonia in the urine culture. No fever or chills, no signs of respiratory distress, follow-up blood cultures starting on 05/25, 05/26 have been negative. Cardiology is following and will decide on the timing of the JOSE. His chest x-ray has been reviewed showing persistent right greater than left bibasilar infiltrates and/or atelectasis and bilateral pleural effusions right greater than left. Patient is maintaining stable oxygenation, he normally wears 3 L of oxygen at home, he is currently on 4 which can actually be titrated down, today's labs have been reviewed, showing white blood cell count is trending, down to 9.4 on today's labs from 12.7, hemoglobin is 9.1, serum sodium is 131, potassium is 4.0, chloride is 97, CO2 is 20, BUN is 75, creatinine is 2.65. Magaña catheter is in, draining clear urine, ranging 35-50 ML per hour. Patient has a fecal management system as in with liquid output and C. diff was negative. On 05/28/2019 patient seen in follow-up in the intensive care unit, she is resting in bed, appears fatigued, but no acute distress, is on 4 L of oxygen, his pulse ox is 98-100%. Denies any specific complaints, no shortness of breath, no component of chest pain, levo fed has been on hold since 12:00 yesterday on 05/27/2019. Today's labs have been reviewed, showing a white blood cell count is 6.9, hemoglobin of 8.6, sodium of 131, potassium is 3.5, chloride is 97, CO2 is 21, BUN 77, and creatinine is 2.8. Ration is on nafcillin for evidence of Staphylococcus aureus, susceptible to oxacillin. Urine culture on the was positive for Klebsiella pneumonia patient has been treated with Zosyn, Levaquin and later cefepime. No fever or chills, sinus rhythm on the monitor, follow-up cultures are pending, patient has been having daily repeat blood cultures, JOSE is pending sometime today. On 05/29/2019 she seen again in follow-up in the intensive care unit, seems very fatigued and worn out, but no acute distress, he denies any shortness of breath, his lung sounds are clear to auscultation, no rales, no rhonchi, room air pulse ox is 95%, maintenance IV 0.9 normal saline at a rate of 50 ML per hour, patient is receiving daily Lasix IV 40 mg. On today's labs patient's renal profile was noted to be worsening, with BUN up to 76 and creatinine 3.35. Blood cell, 7.6, hemoglobin of 8.4, serum sodium is 132, chloride is 97, CO2 is 21, calcium is 6.7, yesterday we received a call from the dietitian who stated that patient's oral intake has been extremely poor, patient is consuming less than 25% of his meals and he is not consuming any supplementation in the form of ensure. Patient's serum albumin is low at 2.0, he is developing third spacing, gen eralized edema. Yesterday his chest x-ray showed a small to moderate-sized right greater than left pleural effusions. From pulmonary perspective patient is not complaining of any shortness of breath, no cough or congestion, occasional production of clear colored sputum. No fever or chills, follow-up blood cultures positive for coagulase-negative staph, and culture from 05/27/2019 has shown no growth at the 72 hour bonifacio. ID service is following, and patient is being treated with IV antibiotic therapy JOSE was completed showing questionable mobile lesion in the highly calcified aortic valve and a vegetation could not be completely excluded, in addition there was a 1 cm circumferential mobile mass on the anterior leaflet on the atrial side suggestive of vegetation and a mobile circumferential mass on the posterior mitral leaflet suggestive of vegetation. LV function. To be moderately to severely impaired. In view of endocarditis patient was referred to CT surgery for evaluation for possibility of surgical intervention, who has recommended completing 6 weeks of antibiotics, and patient is an extremely high risk for surgical intervention, and medical treatment was recommended at this time. On 05/31/2019 patient seen in follow-up in the intensive care unit, yesterday GI service inserted Dobhoff tube and feedings have been started, with vital HP at a rate of 20 ML per hour, his goal is 80, patient at this point is eating very minimally orally. Appetite is extremely poor. No difficulty breathing, however sounds more congested on today's exam, weak congestive cough, nonproductive. Patient was placed on a couple liters of supplemental oxygen, his pulse ox this morning is 94, hemodynamically stable, his 0.9 normal saline is infusing at a rate of 10 ML per hour, in addition to the tube feedings. Today we did give the patient is a 5% albumin followed by Lasix, apparently the patient is oliguric, he only produced 400 mL in the last 24 hours, if ALLERGIES following, today's labs have been reviewed, showing white blood cell count of 6.9, hemoglobin of 8.2, serum sodium of 1:30, potassium is 4.3, chloride is 97, CO2 17, BUN is 80, and creatinine of 3.47. He is on nafcillin for MSSA bacteremia, and OJSE also revealed a vegetation on his mitral and aortic valves. Patient is not a surgical candidate, IV antibiotics and medical treatment was recommended, overall he has severe generalized weakness, poor appetite, and although there has been no acute events overnight, he is steadily declining. At this time he remains a full code and his overall prognosis is extremely guarded. Extremity Dopplers are negative for DVT On 06/06/2019 patient seen in follow-up in the intensive care unit. More awake and conversant on today's exam, FiO2 down to 6 L, and in his oxygen saturations are around 99-100%, his been afebrile, hemodynamically patient remains vasopressor dependent, we have not been very successful on weaning that down, remains on norepinephrine currently at 15 mics per minute, Bumex drip is at 1 mg per hour, and Zaroxolyn has been added to enhance diuresis, patient is in negative fluid balance, and he has made 3100 mL and urine output, and he is in - 700 mL fluid balance over the last 24 hours. His appetite remains extremely poor, he is only eaten a couple of bites at his meals, he states he has no appetite, but denies any significant shortness of breath, lung sounds are positive for diffuse wheezes, image breath sounds at the bases, chest x-ray has been reviewed showing diffuse pulmonary edema with the possibility of ARDS. Follow-up blood culture showed no growth, urine culture was negative, she remains on nafcillin for MSSA bacteremia and evidence of endocarditis. Yesterday patient received a unit of packed red blood cells for hemoglobin of 6.3, this morning's labs show a hemoglobin of 7.2, with no obvious sign of bleeding. No complaints of fever, no complaint of chills, patient seems to be appropriate. On 06/12/2019 patient seen in follow-up on the [facility] care unit, he is awake and alert, he is oriented 2, to place and time. Really on 4 L of oxygen and his pulse ox is 89-90%. Patient is afebrile, patient apparently didn't become hypotensive this morning, with a blood pressure of 77/50, and his morning dose of Zaroxolyn has been held, he continues on Bumex drip at 1 mg/h, and dobutamine drip at 5 mics/per kilo per minute. He is in -2074 mL fluid balance over the last 24 hours, patient is -6.7 kg in the last 24 hours, however there is a different bed the patient is in this morning as was transferred out of the [facility] care unit yesterday, so there may be a discrepancy in the weight that overall patient's fluid volume status is improving, lower extremity and upper extremity edema have significantly improved, there is only some residual 1+ pedal edema. Follow-up chest x-ray has been obtained showing patchy bibasilar infiltrate and/or atelectasis and small to tiny bilateral pleural effusions. Today's labs have been reviewed, white blood cell count is 13.2, hemoglobin is 8.4, serum sodium is 131, potassium is 3.2, chloride is 86, CO2 34, BUN is 82, creatinine is 2.75. Nephrology is following. Patient apparently also has been having loose stools had 6 episodes yesterday. Receiving Questran. Remains on antibiotics on Nafcillin for bacteremia and endocarditis. ID service is following Objective - Vital Signs Vital signs: Vital Signs Temp 97.6 F 06/12/19 11:22 Pulse 107 H 06/12/19 11:22 Resp 18 06/12/19 11:22 BP 96/57 06/12/19 11:22 Pulse Ox 89 L 06/12/19 11:22 Intake & Output 06/11/19 06/12/19 06/12/19 18:59 06:59 18:59 Intake Total 750 850 250 Output Total 1874 1800 1100 Balance -1124 -950 -850 Weight 65.5 kg Intake: IV 280 200 0.9 80 Nafcillin 2 gm In 200 200 Dextrose 5% in Water 100 ml @ 50 mls/hr IVPB Q4HR LOUIE Rx#:[id number] Intake, IV Titration 250 550 Amount Bumetanide 10 mg In 100 100 Dextrose 5% in Water 60 ml @ 1 MG/HR 10 mls/hr IV .Q10H LOUIE Rx#:[id number] DOBUTamine DRIP 500 mg In 250 Dextrose/Water 1 250ml. bag @ 5 MCG/KG/MIN 13.275 mls/hr IV .[id number] LOUIE Rx#:[id number] Potassium Chloride 10 meq 200 In Water For Injection 1 100ml.bag @ 100 mls/hr IVPB Q1H LOUIE Rx#: [id number] Potassium Chloride 20 meq 150 In Water For Injection 1 100ml.bag @ 50 mls/hr IVPB Q2H LOUIE Rx#: [id number] Oral 220 100 250 Output: Urine 1874 1800 1100 Other: Voiding Method Indwelling Catheter Indwelling Catheter Indwelling Catheter # Voids 0 # Bowel Movements 1 - Exam GENERAL EXAM: Awake, 79-year-old white male, currently on 4L of oxygen with a pulse ox of 99%, no signs of distress HEAD: Normocephalic/atraumatic. EYES: Normal reaction of pupils, equal size. Conjunctiva pink, sclera white. NOSE: Clear with pink turbinates. THROAT: No erythema or exudates. NECK: No masses, no JVD, no thyroid enlargement, no adenopathy. CHEST: No chest wall deformity. Symmetrical expansion. LUNGS: diminished breath sounds bilaterally, scattered rhonchi CVS: Regular rate and rhythm, normal S1 and S2, no gallops, no murmurs, no rubs ABDOMEN: Soft, nontender. No hepatosplenomegaly, normal bowel sounds, no guarding or rigidity. EXTREMITIES: No clubbing,1+ pedal edema, trace pretibial lower extremity edema bilaterally no cyanosis, 2+ pulses and upper and lower extremities. MUSCULOSKELETAL: Muscle strength and tone normal. SPINE: No scoliosis or deformity SKIN: No rashes CENTRAL NERVOUS SYSTEM: fatigued and oriented -2. No focal deficits, tone is normal in all 4 extremities. - Labs CBC & Chem 7: 06/12/19 06:06 06/12/19 06:06 Labs: Abnormal Lab Results - Last 24 Hours (Table) 06/10/19 06/11/19 06/11/19 Range/Units 05:20 14:20 22:04 WBC (3.8-10.6) k/uL RBC (4.30-5.90) m/uL Hgb (13.0-17.5) gm/dL Hct (39.0-53.0) % RDW (11.5-15.5) % Plt Count (150-450) k/uL Neutrophils # (1.3-7.7) k/uL Lymphocytes # (1.0-4.8) k/uL Haptoglobin <8.0 L (31.2-198.0) mg/dL Sodium (137-145) mmol/L Potassium 3.2 L 3.1 L (3.5-5.1) mmol/L Chloride (98-107) mmol/L Carbon Dioxide (22-30) mmol/L BUN (9-20) mg/dL Creatinine (0.66-1.25) mg/dL Glucose (74-99) mg/dL Calcium (8.4-10.2) mg/dL 06/12/19 06/12/19 Range/Units 06:06 06:06 WBC 13.2 H (3.8-10.6) k/uL RBC 2.80 L (4.30-5.90) m/uL Hgb 8.4 L (13.0-17.5) gm/dL Hct 25.2 L (39.0-53.0) % RDW 18.7 H (11.5-15.5) % Plt Count 45 L (150-450) k/uL Neutrophils # 11.9 H (1.3-7.7) k/uL Lymphocytes # 0.9 L (1.0-4.8) k/uL Haptoglobin (31.2-198.0) mg/dL Sodium 131 L (137-145) mmol/L Potassium 3.2 L (3.5-5.1) mmol/L Chloride 86 L (98-107) mmol/L Carbon Dioxide 34 H (22-30) mmol/L BUN 82 H (9-20) mg/dL Creatinine 2.75 H (0.66-1.25) mg/dL Glucose 128 H (74-99) mg/dL Calcium 8.1 L (8.4-10.2) mg/dL Assessment and Plan Plan: Assessment: 1 septic shock secondary to MSSA infective endocarditis, remains on nafcillin 2 acute on chronic systolic congestive heart failure ejection fraction of 50% remains on dobutamine and Bumex. 3 acute hypoxic respiratory failure secondary to pulmonary edema presently on 6 L nasal cannula 4 acute kidney injury, secondary to acute tubular necrosis and hypotension 5 chronic obstructive pulmonary disease with chronic hypoxia and hypercapnia 6 history of bladder cancer post-TURB 7 hypertension 8 hypothyroidism 9 chronic anemia, multifactorial 10 thrombocytopenia, consumptive in nature possibly drug induced 11 medical debility, and CODE STATUS remains DO NOT RESUSCITATE. Plan: Episode of hypotension this morning, patient's Zaroxolyn has been held, patient remains on Bumex drip which will be switched to Lasix 40 mg every 8 hours, and nephrology agrees. Encourage oral intake, patient's appetite remains very poor. Remains on any biotics for infective endocarditis, is having episodes of diarrhea, remains on Questran, overall prognosis is poor, will status is DO NOT RESUSCITATE DO NOT INTUBATE. Continue with supportive treatment, his chest x- ray has been reviewed showing bilateral atelectasis, small pleural effusions. I performed a history & physical examination of the patient and discussed their management with my nurse practitioner, Taisha Saldaña. I reviewed the nurse practitioner's note and agree with the documented findings and plan of care. Lung sounds are positive for diminished with rales. The findings and the impression was discussed with the patient. I attest to the documentation by the nurse practitioner. Time with Patient: Less than 30
[2019-06-12] MEDS ORDERED: FUROSEMIDE 10 MG/ML 4 ML VIAL IV SCH (16:00)
[2019-06-12] MEDS: DOBUTamine DRIP 500 MG in DEXTROSE/WATER 1 250ML.BAG IV SCH (16:36)
[2019-06-12] MEDS: SODIUM CHLORIDE 0.9% 1,000 ML IV SCH (16:38)
[2019-06-12] MEDS ORDERED: BUMETANIDE 10 MG in DEXTROSE 5% IN WATER 60 ML IV SCH ×2 (18:00)
--- NOTE | 2019-06-12 20:23 | PN ---
PROGRESS NOTE Patient is seen for followup for acute kidney injury and volume overload. He is currently being diuresed. Patient is maintained on Bumex drip and dobutamine drip. He has had good urine output. His weight has decreased over the last couple of weeks. This morning patient is lying in bed. He is comfortable. He is not in any acute distress. He has not been eating much. Blood pressure this morning was 77/50, heart rate 107 per minute. EXAMINATION OF THE HEART: S1 and S2. EXAMINATION OF LUNGS: Bilateral breath sounds are heard. Decreased breath sounds at bases. ABDOMEN: Soft, non-tender. Examination of lower extremities shows 2+ edema, mainly in the feet. WEASAND TRIMMER exam is grossly intact. Labs show sodium 131, potassium 3.2, BUN of 82, serum creatinine 2.75, calcium 8.1, hemoglobin 8.4 g/dL. ASSESSMENT: 1. Acute kidney injury, cardiorenal as well as a component of acute tubular necrosis, somewhat improved. We will continue with diuresis. However, I will discontinue the Bumex drip and switch patient to IV Lasix or IV Bumex. Since he responded well to Bumex, we will switch him to IV push Bumex. 2. Hypokalemia secondary to diuretics, currently being replaced. 3. Generalized debility. 4. Sepsis with endocarditis. Repeat blood cultures have been negative. 5. Anemia. No active bleeding noted. Fairly stable. PLAN: Switch Bumex drip to IV push Bumex. Replace potassium. Check magnesium and electrolytes in a.m. May continue with the dobutamine for now. Overall prognosis remains guarded. MMODL / IJN: [id number] /
[2019-06-12] MEDS: SERTRALINE 50 MG TAB PO SCH (21:11)
[2019-06-12] MEDS: MONTELUKAST 10 MG TAB PO SCH (21:11)
--- NOTE | 2019-06-12 22:36 | PN ---
PROGRESS NOTE DATE OF SERVICE: 06/12/2019. REASON FOR FOLLOW UP: MSSA mitral valve endocarditis. INTERVAL HISTORY: The patient is currently afebrile. The patient has been breathing comfortably. He is more awake, alert. Denies any chest pain. No cough. No abdominal pain or worsening diarrhea. PHYSICAL EXAMINATION: Blood pressure is 84/48 with a pulse of 100. Temperature 97.7. He is 98% on 4 L nasal cannula. General description is an elderly male lying in bed in no distress. Respiratory system: Unlabored breathing, decreased breath sounds in the bases. Heart S1, S2. Regular rate and rhythm. Abdomen soft. No tenderness. LABS: Hemoglobin 8.4, white count 13.2, BUN of 82, creatinine is 2.75. DIAGNOSTIC IMPRESSION AND PLAN: Patient with MSSA mitral endocarditis. The patient is currently covered with a nafcillin, transition to cefazolin on discharge to finish a six week course of therapy. Monitor clinical course closely. MMAMARILISL / IJN: [id number] /
--- NOTE | 2019-06-12 23:41 | PN ---
PROGRESS NOTE Mr. Carolee Pedersen is a patient with multivalve endocarditis growing enterococcus. He is being seen by Infectious Disease and antibiotics are being continued. Prognosis for this patient is very poor. He is not an optimal surgical candidate. However, he has improved overall clinically. He has multiple comorbid conditions including his renal dysfunction as well. Plan for now is to continue antibiotics. I will switch him from IV to oral Lasix and continue all his other medications as before. I will continue his other medications as before. Physical exam revealed that his blood pressure today is about 90/60, heart rate is about 100. Rhythm appears to be sinus. S1, S2 heard normally. There is a systolic murmur audible at the base as well as along left sternal border. Lungs reveal diminished air entry, but improved overall. Abdomen is soft, nontender. Lower extremities reveal diminished pulses. Central nervous system is grossly within normal limits. Plan is to continue current medical regimen and antibiotics. Prognosis however remains guarded. 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 Prognosis remains poor. MMODL / IJN: [id number] /
[2019-06-13] MEDS: HYDROCORTISONE SUCCINATE 100 MG/2 ML VIAL IV SCH ×3 (01:48→17:01)
[2019-06-13] MEDS: DOBUTamine DRIP 500 MG in DEXTROSE/WATER 1 250ML.BAG IV SCH (01:49)
[2019-06-13] MEDS: NAFCILLIN 2 GM in DEXTROSE 5% IN WATER 100 ML IVPB SCH ×12 (02:11→20:15)
[2019-06-13] MEDS: MIDODRINE 5 MG TAB PO SCH ×3 (06:46→17:00)
[2019-06-13] MEDS: LEVOTHYROXINE 112 MCG TAB PO SCH (06:46)
[2019-06-13] MEDS: SYMBICORT 160-4.5 MCG INHALER INHALATION SCH ×2 (07:18→20:42)
[2019-06-13] MEDS: IPRATROPIUM-ALBUTEROL 3 ML NEB INHALATION SCH ×3 (07:18→20:42)
[2019-06-13 07:22] LABS: Calcium 8.1 mg/dL (8.4-10.2)
[2019-06-13 07:35] LABS: Anisocytosis Slight; Basophils % (A) 0 %; Eosinophils % (A) 0 %; HGB 8.6 gm/dL (13.0-17.5); Lymphocytes # (A) 1.1 k/uL (1.0-4.8); Lymphocytes % (A) 8 %; MCH 30.5 pg (25.0-35.0); MCHC 34.6 g/dL (31.0-37.0); MCV 88.2 fL (80.0-100.0); Mean Platelet Volume 7.7; Monocytes # (A) 0.3 k/uL (0-1.0); Monocytes % (A) 2 %; Neutrophils # (A) 12.3 k/uL (1.3-7.7); Neutrophils % (A) 88 %; Platelet Count 54 k/uL (150-450); RBC 2.83 m/uL (4.30-5.90); RDW 18.8 % (11.5-15.5)
[2019-06-13] MEDS ORDERED: DOBUTamine DRIP 500 MG in DEXTROSE/WATER 1 250ML.BAG IV SCH (11:30)
[2019-06-13] MEDS: NYSTATIN 100,000 UNIT/ML SUSP 500,000 UNIT/5 ML CUP PO SCH ×4 (11:53→22:22)
[2019-06-13] MEDS: PANTOPRAZOLE 40 MG/10 ML VIAL IVP SCH ×2 (11:53→22:22)
[2019-06-13] MEDS: OXYBUTYNIN XL 5 MG TAB.ER.24 PO SCH (11:54)
[2019-06-13] MEDS: CHOLESTYRAMINE (WITH SUGAR) 4 GM PACKET PO SCH ×2 (11:54→17:01)
[2019-06-13] MEDS: HYDROPHILIC CREAM 180 GM TUBE TOPICAL SCH ×2 (11:55→22:23)
--- NOTE | 2019-06-13 12:11 | P.PN ---
Subjective Progress Note Date: 06/13/19 Principal diagnosis: Acute septic shock secondary to right lower lobe pneumonia, this is likely healthcare acquired pneumonia and gram-positive bacteremia. MSSA. This is a 79-year-old white male patient of Dr. Wallace, with extensive medical history, was recently hospitalized for acute exacerbation of systolic congestive heart failure with an EF of 30-35%, acute hypoxic failure related to CHF, acute on chronic renal failure. Following his discharge on 05/16/2019 patient went to [facility] for rehab. On 05/20/2019 patient was brought into the hospital for evaluation of worsening shortness of breath, fever chills, increased sputum production. Denied any nausea or vomiting, patient also complained of penile pain, and dysuria. Patient does have a history of COPD on home oxygen at 4 L. Other medical history includes CAD with history of bypass grafting, bladder c ancer, patient follows with Dr. Calvert from urology, hyperlipidemia, previous myocardial infarction, osteoarthritis, sleep apnea on CPAP therapy, prostate disorder, hypothyroidism, chronic back pain, and previous history of smoking. Chest x-ray was completed showing small bilateral pleural effusions, bibasilar atelectasis and diffuse interstitial and hazy opacities with the possibility of interstitial pneumonia, and fluid overload. Lab work was positive for leukocytosis, white blood cell count is 31.3, hemoglobin is 7.4, patient had 23% bandemia, correlation profile was within normal limits, serum sodium was 133, potassium 3.4, chloride was 92, CO2 is 31, BUN was 61, creatinine is 2.42. La ctic acid was 4.8 patient was given 2 L of IV fluids, this morning his lactic acid is 2.8, troponins were positive at 0.173, and 0.121. ProB[place] [address], urinalysis showed large amount of blood, 1+ protein, large amount of leuk trase, rare white blood cell and rare bacteria, doubt underlying urinary tract infection. Influenza screen was negative. Patient was initially admitted to stepdown floor, this morning his febrile, with a temp of 102.2, patient is tachycardic the heart rate up to 120 BPM, blood pressures are marginal, 99/71, and subsequent one was systolic in the 80s. Patient was given additional liter bolus, broad-spectrum antibiotics were started in the form of Zosyn. Blood cul tures were sent on admission, we will obtain additional set of blood cultures, urinalysis, sputum culture. Patient is being transferred to the intensive care unit. Reevaluated today on 05/22/2019, patient remains in the ICU, I saw him yesterday, and arrange for the transferred to the ICU. During my evaluation, the patient was noted to be septic, he was transferred to the ICU and received a total of 3 L of fluids, and he was placed on a short. This time on norepinephrine for low blood pressure. Patient was on norepinephrine for few hours, today he is hemodynamically stable, feeling a bit better, chest x-ray clearly shows evidence of right lower lobe pneumonia and interstitial edema bilaterally. Hence the patient will be given a dose of Lasix, and his IV fluids will be cut down to 50 mL per hour. Blood cultures are positive for gram-positive cocci, hence vancomycin was added. In the meantime we will continue Zosyn until the final identification and sensitivity noted from the blood cultures. WBC count today is down to 23.8 hemoglobin is 8.6 electrolytes are normal BUN is 53 creatinine is 1.48, improving compared to 2.42 on admission. Troponin was noted to be 0.069. Potassium is 3.5 be corrected as per protocol. Reevaluated today on 05/23/2019, patient remains in the ICU, off norepinephrine, hemodynamically stable, urine output is marginal but improving with diuretics, and he was given a dose of Lasix earlier today. Overall the patient is slightly better compared to his presentation. Chest x-ray continues to showsome component of congestive heart failure, and some component of patchy infiltrates in the right lower lobe. Small pleural effusion is noted right greater than left.WBC count remains elevated at 25.2 hemoglobin is 10.3. Electrodes are normal BUN is improving creatinine is also improving down to 1.16.patient is off norepinephrine today. Troponin level is slightly elevated at 0.069, Patient was reevaluated today on 05/24/2019, remains in the ICU, off norepinephrine, feeling better, breathing easier, however his chest x-ray continues to show some interstitial edema Lasix was given 40 mg IV push times one. Cut down his fluid down to 50 mL per hour. Clinically the patient is feeling better, breathing a lot easier, chest x-ray is still concerning, and his blood pressure remains marginal but he normally runs a low blood pressure. WBC down to 20.9 his electrolytes are normal except for low potassium being corrected. BUN is 48 creatinine 1.18. His blood cultures came back positive for MSSA. Patient is now on nafcillin as per infectious disease on the case. Other antibiotics have been discontinued. Reevaluated today on 05/25/2019, patient remains off norepinephrine, blood pressure remains low marginal. Responds well to IV Lasix given on a daily basis as needed. IV fluids remains at 50 mL per hour. Continues to have positive blood cultures, and a transesophageal echocardiogram should be done by cardiology. His blood cultures remain positive since admission. Patient remains on antibiotics as per infectious disease on the case. Chest x-ray showed right lower lobe consolidation, and possibly a small right-sided pleural effusion. Minimal effusion noted on the left. WBC count is coming down to 15.9 it was quite elevated on admission. It was 20.9 yesterday and a 25.22 days ago. His electrolytes are normal BUN however is up to 59, and creatinine is up to 1.35, we'll continue cautious hydration and hold on diuretics. Patient does have poor LV function and the findings on his renal status could be related to diuretics as well as cardiorenal in nature. Reevaluated today on 05/26/2019, patient is back on norepinephrine today at 0.06 mcg/kg/m. Patient had low blood pressure last night, low urine output, hence he is now back on norepinephrine, and he is receiving IV fluid at 70 mL per hour. Will hold on any diuretics today. Patient continues to have positive blood cultures, initiated a cardiology consultation yesterday, not seen yet by cardiology, patient will definitely require transesophageal echocardiogram to document endocarditis and to explain his persistent positive blood cultures. Ultrasound of the chest did not show enough pleural effusion on the right side to consider safe thoracentesis. Hence no thoracentesis will be done. His transthoracic echocardiogram did show evidence of poor LV function with ejection fraction of 30-35 percent. And hopefully a transesophageal echo could be done tomorrow. Clinically the patient is slightly confused, he is not in any form of respiratory distress. Chest x-ray continues to show air space disease in the right lower lobe and small tiny right-sided pleural effusion. Also there is evidence of mild pulmonary edema. On 05/27/2019 patient seen in follow-up in the intensive care unit. He is lethargic, but easily arousable, denies any acute distress, currently on 4 L of oxygen per nasal cannula, pulse ox of 98%, afebrile, he remains on small dose of levothyroid at 2 mics per minute, and maintenance IV fluids 0.9 normal saline at a rate of 75 ML per hour, Currently on nafcillin for MSSA bacteremia, was also treated with a combination of Zosyn, Levaquin and later with cefepime which have all been discontinued now for evidence of Klebsiella pneumonia in the urine culture. No fever or chills, no signs of respiratory distress, follow-up blood cultures starting on 05/25, 05/26 have been negative. Cardiology is following and will decide on the timing of the JOSE. His chest x-ray has been reviewed showing persistent right greater than left bibasilar infiltrates and/or atelectasis and bilateral pleural effusions right greater than left. Patient is maintaining stable oxygenation, he normally wears 3 L of oxygen at home, he is currently on 4 which can actually be titrated down, today's labs have been reviewed, showing white blood cell count is trending, down to 9.4 on today's labs from 12.7, hemoglobin is 9.1, serum sodium is 131, potassium is 4.0, chloride is 97, CO2 is 20, BUN is 75, creatinine is 2.65. Magaña catheter is in, draining clear urine, ranging 35-50 ML per hour. Patient has a fecal management system as in with liquid output and C. diff was negative. On 05/28/2019 patient seen in follow-up in the intensive care unit, she is resting in bed, appears fatigued, but no acute distress, is on 4 L of oxygen, his pulse ox is 98-100%. Denies any specific complaints, no shortness of breath, no component of chest pain, levo fed has been on hold since 12:00 yesterday on 05/27/2019. Today's labs have been reviewed, showing a white blood cell count is 6.9, hemoglobin of 8.6, sodium of 131, potassium is 3.5, chloride is 97, CO2 is 21, BUN 77, and creatinine is 2.8. Ration is on nafcillin for evidence of Staphylococcus aureus, susceptible to oxacillin. Urine culture on the was positive for Klebsiella pneumonia patient has been treated with Zosyn, Levaquin and later cefepime. No fever or chills, sinus rhythm on the monitor, follow-up cultures are pending, patient has been having daily repeat blood cultures, JOSE is pending sometime today. On 05/29/2019 she seen again in follow-up in the intensive care unit, seems very fatigued and worn out, but no acute distress, he denies any shortness of breath, his lung sounds are clear to auscultation, no rales, no rhonchi, room air pulse ox is 95%, maintenance IV 0.9 normal saline at a rate of 50 ML per hour, patient is receiving daily Lasix IV 40 mg. On today's labs patient's renal profile was noted to be worsening, with BUN up to 76 and creatinine 3.35. Blood cell, 7.6, hemoglobin of 8.4, serum sodium is 132, chloride is 97, CO2 is 21, calcium is 6.7, yesterday we received a call from the dietitian who stated that patient's oral intake has been extremely poor, patient is consuming less than 25% of his meals and he is not consuming any supplementation in the form of ensure. Patient's serum albumin is low at 2.0, he is developing third spacing, gen eralized edema. Yesterday his chest x-ray showed a small to moderate-sized right greater than left pleural effusions. From pulmonary perspective patient is not complaining of any shortness of breath, no cough or congestion, occasional production of clear colored sputum. No fever or chills, follow-up blood cultures positive for coagulase-negative staph, and culture from 05/27/2019 has shown no growth at the 72 hour bonifacio. ID service is following, and patient is being treated with IV antibiotic therapy JOSE was completed showing questionable mobile lesion in the highly calcified aortic valve and a vegetation could not be completely excluded, in addition there was a 1 cm circumferential mobile mass on the anterior leaflet on the atrial side suggestive of vegetation and a mobile circumferential mass on the posterior mitral leaflet suggestive of vegetation. LV function. To be moderately to severely impaired. In view of endocarditis patient was referred to CT surgery for evaluation for possibility of surgical intervention, who has recommended completing 6 weeks of antibiotics, and patient is an extremely high risk for surgical intervention, and medical treatment was recommended at this time. On 05/31/2019 patient seen in follow-up in the intensive care unit, yesterday GI service inserted Dobhoff tube and feedings have been started, with vital HP at a rate of 20 ML per hour, his goal is 80, patient at this point is eating very minimally orally. Appetite is extremely poor. No difficulty breathing, however sounds more congested on today's exam, weak congestive cough, nonproductive. Patient was placed on a couple liters of supplemental oxygen, his pulse ox this morning is 94, hemodynamically stable, his 0.9 normal saline is infusing at a rate of 10 ML per hour, in addition to the tube feedings. Today we did give the patient is a 5% albumin followed by Lasix, apparently the patient is oliguric, he only produced 400 mL in the last 24 hours, if ALLERGIES following, today's labs have been reviewed, showing white blood cell count of 6.9, hemoglobin of 8.2, serum sodium of 1:30, potassium is 4.3, chloride is 97, CO2 17, BUN is 80, and creatinine of 3.47. He is on nafcillin for MSSA bacteremia, and JOSE also revealed a vegetation on his mitral and aortic valves. Patient is not a surgical candidate, IV antibiotics and medical treatment was recommended, overall he has severe generalized weakness, poor appetite, and although there has been no acute events overnight, he is steadily declining. At this time he remains a full code and his overall prognosis is extremely guarded. Extremity Dopplers are negative for DVT On 06/06/2019 patient seen in follow-up in the intensive care unit. More awake and conversant on today's exam, FiO2 down to 6 L, and in his oxygen saturations are around 99-100%, his been afebrile, hemodynamically patient remains vasopressor dependent, we have not been very successful on weaning that down, remains on norepinephrine currently at 15 mics per minute, Bumex drip is at 1 mg per hour, and Zaroxolyn has been added to enhance diuresis, patient is in negative fluid balance, and he has made 3100 mL and urine output, and he is in - 700 mL fluid balance over the last 24 hours. His appetite remains extremely poor, he is only eaten a couple of bites at his meals, he states he has no appetite, but denies any significant shortness of breath, lung sounds are positive for diffuse wheezes, image breath sounds at the bases, chest x-ray has been reviewed showing diffuse pulmonary edema with the possibility of ARDS. Follow-up blood culture showed no growth, urine culture was negative, she remains on nafcillin for MSSA bacteremia and evidence of endocarditis. Yesterday patient received a unit of packed red blood cells for hemoglobin of 6.3, this morning's labs show a hemoglobin of 7.2, with no obvious sign of bleeding. No complaints of fever, no complaint of chills, patient seems to be appropriate. On 06/12/2019 patient seen in follow[facility]up [facility], he is awake and alert, he is oriented 2, to place and time. Really on 4 L of oxygen and his pulse ox is 89-90%. Patient is afebrile, patient apparently didn't become hypotensive this morning, with a blood pressure of 77/50, and his morning dose of Zaroxolyn has been held, he continues on Bumex drip at 1 mg/h, and dobutamine drip at 5 mics/per kilo per minute. He is in -2074 mL fluid balance over the last 24 hours, patient is -6.7 kg in the last 24 hours, however there is a different bed the patient is in this morning as was transferred out of the [facility] care unit yesterday, so there may be a discrepancy in the weight that overall patient's fluid volume status is improving, lower extremity and upper extremity edema have significantly improved, there is only some residual 1+ pedal edema. Follow-up chest x-ray has been obtained showing patchy bibasilar infiltrate and/or atelectasis and small to tiny bilateral pleural effusions. Today's labs have been reviewed, white blood cell count is 13.2, hemoglobin is 8.4, serum sodium is 131, potassium is 3.2, chloride is 86, CO2 34, BUN is 82, creatinine is 2.75. Nephrology is following. Patient apparently also has been having loose stools had 6 episodes yesterday. Receiving Questran. Remains on antibiotics on Nafcillin for bacteremia and endocarditis. ID service is following On 06/13/2019 [facility], he is awake and alert, denies any acute distress, no complaints of worsening shortness of breath, he is on 3 L of oxygen with a pulse ox of 95%, blood pressure is 93/55, remains on dobutamine drip at 5 mics per kilo per minute, and he is currently being weaned down to 3 mics per kilo per minute, he has been addition from a Bumex drip to Bumex 1 mg every 12 hours, Zaroxolyn has been discontinued, remains on midodrine, and nafcillin for staphylococcal endocarditis. There have been no fever or chills, follow blood cultures have been negative. Clinically seems to have slightly improved, however long-term prognosis is guarded, his labs have been reviewed, white blood cell count of 14.0, hemoglobin of 8.6, serum sodium is 134, potassium is 3.0, chloride is 86, CO2 was 38, BUN is 80 creatinine is 2.75. Objective - Vital Signs Vital signs: Vital Signs Temp 97.9 F 06/13/19 03:12 Pulse 104 H 06/13/19 07:28 Resp 20 06/13/19 03:12 BP 93/55 06/13/19 03:12 Pulse Ox 95 06/13/19 03:12 Intake & Output 06/12/19 06/13/19 06/13/19 18:59 06:59 18:59 Intake Total 774.348 818.351 Output Total 2075 200 500 Balance -1300.652 618.351 -500 Weight 79 kg Intake: IV 450 0.9 50 Nafcillin 2 gm In 400 Dextrose 5% in Water 100 ml @ 50 mls/hr IVPB Q4HR LOUIE Rx#:[id number] Intake, IV Titration 224.348 122.351 Amount DOBUTamine DRIP 500 mg In 224.348 122.351 Dextrose/Water 1 250ml. bag @ 5 MCG/KG/MIN 13.275 mls/hr IV .[id number] LOUIE Rx#:[id number] Oral 550 246 Output: Urine 2075 100 500 Stool 100 Other: Voiding Method Indwelling Catheter Indwelling Catheter # Bowel Movements 1 2 - Exam GENERAL EXAM: Awake, 79-year-old white male, currently on 3L of oxygen with a pulse ox of 95%, no signs of distress HEAD: Normocephalic/atraumatic. EYES: Normal reaction of pupils, equal size. Conjunctiva pink, sclera white. NOSE: Clear with pink turbinates. THROAT: No erythema or exudates. NECK: No masses, no JVD, no thyroid enlargement, no adenopathy. CHEST: No chest wall deformity. Symmetrical expansion. LUNGS: diminished breath sounds bilaterally, scattered rhonchi CVS: Regular rate and rhythm, normal S1 and S2, no gallops, no murmurs, no rubs ABDOMEN: Soft, nontender. No hepatosplenomegaly, normal bowel sounds, no guarding or rigidity. EXTREMITIES: No clubbing,1+ pedal edema, trace pretibial lower extremity edema bilaterally no cyanosis, 2+ pulses and upper and lower extremities. MUSCULOSKELETAL: Muscle strength and tone normal. SPINE: No scoliosis or deformity SKIN: No rashes CENTRAL NERVOUS SYSTEM: fatigued and oriented -2. No focal deficits, tone is normal in all 4 extremities. - Labs CBC & Chem 7: 06/13/19 06:38 06/13/19 06:38 Labs: Abnormal Lab Results - Last 24 Hours (Table) 06/12/19 06/13/19 06/13/19 Range/Units 16:29 06:38 06:38 WBC 14.0 H (3.8-10.6) k/uL RBC 2.83 L (4.30-5.90) m/uL Hgb 8.6 L (13.0-17.5) gm/dL Hct 25.0 L (39.0-53.0) % RDW 18.8 H (11.5-15.5) % Plt Count 54 L (150-450) k/uL Neutrophils # 12.3 H (1.3-7.7) k/uL Sodium 134 L (137-145) mmol/L Potassium 3.3 L 3.0 L (3.5-5.1) mmol/L Chloride 86 L (98-107) mmol/L Carbon Dioxide 38 H (22-30) mmol/L BUN 80 H (9-20) mg/dL Creatinine 2.75 H (0.66-1.25) mg/dL Calcium 8.1 L (8.4-10.2) mg/dL Assessment and Plan Plan: Assessment: 1 septic shock secondary to MSSA infective endocarditis, remains on nafcillin 2 acute on chronic systolic congestive heart failure ejection fraction of 50% remains on dobutamine and Bumex. 3 acute hypoxic respiratory failure secondary to pulmonary edema presently on 6 L nasal cannula 4 acute kidney injury, secondary to acute tubular necrosis and hypotension 5 chronic obstructive pulmonary disease with chronic hypoxia and hypercapnia 6 history of bladder cancer post-TURB 7 hypertension 8 hypothyroidism 9 chronic anemia, multifactorial 10 thrombocytopenia, consumptive in nature possibly drug induced 11 medical debility, and CODE STATUS remains DO NOT RESUSCITATE. Plan: Continue with current plan of treatment, dobutamine is being weaned down, fluid volume status is improving, decreased lower extremity edema, patient is more alert, he did have some clinical improvement, he denies any shortness of breath, but appetite remains poor, and patient has severe generalized weakness. No acute events overnight, no clubbing and chest pain, no fever or chills, follow blood cultures have been negative, remains on IV nafcillin for antibiotic coverage for Staphylococcus endocarditis, continue with Bumex 1 mg every 12 hours, renal profile stable I performed a history & physical examination of the patient and discussed their management with my nurse practitioner, Taisha Saldaña. I reviewed the nurse practitioner's note and agree with the documented findings and plan of care. Lung sounds are positive for diminished with rales. The findings and the impression was discussed with the patient. I attest to the documentation by the nurse practitioner. Time with Patient: Less than 30
[2019-06-13] MEDS ORDERED: ALTEPLASE 2 MG VIAL (CATHFLO) IV STA ×2 (14:11→14:27)
[2019-06-13] MEDS ORDERED: POTASSIUM CHLORIDE ER 20 MEQ TAB.ER PO STA (15:51)
[2019-06-13] MEDS: BUMETANIDE 0.25 MG/ML 4 ML VIAL IV SCH ×2 (16:00→22:14)
--- NOTE | 2019-06-13 17:52 | PN ---
PROGRESS NOTE Patient is seen for followup for acute kidney injury, severe volume overload, sepsis. He is maintained on dobutamine. Patient was on Bumex drip, which was discontinued yesterday. He was switched to IV push Bumex. Volume status has improved significantly. Urine output for 24 hours was 2.2 L. On examination today, blood pressure this morning was 84/40, heart rate of 92 per minute. Patient is afebrile. EXAMINATION OF THE HEART: S1 and S2. EXAMINATION OF LUNGS: Bilateral breath sounds are heard. ABDOMEN: Soft, non-tender. Examination of lower extremities shows edema, mainly in the feet, 2+ bilaterally. This is significantly improved. LIBERAL ARTS DEAN exam: Patient has been moving all 4 extremities. Labs show sodium 134, potassium 3.0, chloride 86, BUN 80, creatinine 2.75. CO2 is 38. ASSESSMENT: 1. Acute kidney injury, acute tubular necrosis and cardiorenal, slightly improved. Serum creatinine is staying at about 2.7 mg/dL. 2. Hypokalemia secondary to diuretics, being replaced. Check magnesium level as well. 3. Severe volume overload, now improved. Continue with IV Bumex q.12 hours. 4. Cardiomyopathy, maintained on dobutamine drip. Consider discontinuation of drip by tomorrow. 5. Chronic hypotension, maintained on Solu-Cortef and midodrine. PLAN: Continue with IV Bumex. Replace potassium. Check magnesium and repeat labs in a.m. Overall prognosis is guarded. MMODL / IJN: [id number] /
--- NOTE | 2019-06-13 20:35 | PN ---
PROGRESS NOTE Mr. Carolee Pedersen has multi-valve endocarditis and is on antibiotics. He is comfortable resting, but blood pressure still seems to be low. He is on 5 mcg of dopamine. I am recommending that we cut it down to 3 mcg of dopamine, continue supportive care and medications, and as soon as he is more stable he can be discharged on IV antibiotics. Vitals are stable today. S1, S2 heard normally. Short systolic murmur noted. Lungs reveal improved air entry. Abdomen and lower extremity exam is unchanged. Prognosis remains poor for this patient. MMODL / IJN: [id number] /
--- NOTE | 2019-06-13 21:32 | P.PN ---
Subjective This is a pleasant 79 years old male with past medical history of coronary artery disease, heart failure, COPD, GERD, hyperlipidemia, osteoarthritis, benign prostatic hypertrophy, hypothyroidism, sleep apnea on CPAP/BiPAP, chronic back pain with herniated disc. Patient has been in the ICU for several days for septic shock secondary to endocarditis with MSSA, complicated by acute congestive heart failure with ejection fraction 30%. Also patient has worsening creatinine up to 3.4, baseline creatinine is 1.1 Patient is tachycardic and hypotensive, he is on pressors. Potassium is low at 2.8, being replaced, creatinine is elevated at 3.4, baseline is around 1.2. Sugar is controlled. WBC is 9.6, hemoglobin 6.8 which is been going on for a f ew days. 06/08/2019 Patient is with cup and sitting in the chair, he still feels generally weak, his hematocrit was stopped today and his blood pressure is holding up, current blood pressure is 84/66 and biopsies 69, distal and dobutamine drip at 5, he has left- sided PICC line. His hemoglobin is up today to 7.1, creatinine 3.5. Freight Manager evaluation is appreciated 06/09/2019 Patient is resting in bed not in distress however he looks more lethargic today. He is afebrile however his blood pressure is 120/72 and slightly tachycardic at 100 bpm, patient today has adequate a drop in his hemoglobin down from 7.10 to 5.6, patient remains in the ICU because of his physical conditions and they get into units of blood transfusion. Potassium is also on the low side with 2.9 was coming to be replaced, low sodium at 135. Creatinine is still elevated at 3.5. Albumin was started yesterday and today he was started on Protonix twice daily. 06/10/2019 Patient in the ICU, distal and critical condition. However he is awake and answers some questions appropriately and follow command however remains confused and weak. He is hemodynamically stable and he is saturating 91% on 6 L oxygen by high flow cannula. Patient remains afebrile. Labs reviewed today showing hemoglobin of 8.2, his platelets today is 40, after receiving several units of blood transfusion, no leukocytosis and WBC is 9.5K, sodium 135, creatinine 2.8 slightly lower than yesterday. He has bilateral leg edema. Patient remains on Bumex and dobutamine drips however quit. His blood pressure this morning was 101/61. His heparin and aspirin will discontinue it and patient was placed on Protonix 40 mg twice daily 06/11/2019 06/11/2019 Patient remains in the ICU, clinically looks the same is still confused and gene rally weak. On exam he has bilateral leg edema about 2+. He remains in the Bumex at 1 and dobutamine at 5, his vitals are stable history old and respiratory failure needed for liters of oxygen, blood pressure is more stable, chest x-ray were suspicious for developing pneumonia in the right lung base. However has no leukocytosis. His creatinine 3.0 which is around the same. Hemoglobin stable at 8.4 and platelets stable at 39, potassium 3.4 which is been replaced. He is having brown stools with some little black however his hemoglobin is stable, discussed with the staff 06/12/19 Patient is transferred to the general medical floor. His sitting in bed slightly tachypneic, confused which is been the case since I evaluated him. No chest pain or abdominal pain. Tolerating diet well. He looks weak and tired. Patient Anastacio looks stable with blood pressure 126/79, and saturating 94% on room air. He has mild leukocytosis today of 13.2 K, hemoglobin stable at 8.4, platelets 40 5K, sodium 131, potassium 3.2, creatinine is down to 2.7. Patient remains on Bumex drip at 1 and dobutamine drip at 5. Also his on nafcillin for his [facility] office mitral valve with MSSA. 06/13/2019 Patient is seen in the general medical floor. He is more awake and more comfortable however he is a still confused. Bumex drip has stopped and is going to be changed to IV Bumex injection however he still on dobutamine drip, his blood pressure is still on the low side, like this morning was 85/53 and 93/55. He saturating in the 90s while he is on 3 L oxygen via nasal cannula. Patient is slightly tachycardic. Labs showed leukocytosis of 14 K. However his and his steroids. Sodium 134, potassium 3.0 which is been replaced. Creatinine is stable at 2.75. Pulmonary and infectious disease R following the case closely. His platelets improved today to 54 however we'll keep the patient off subcutan eous heparin or other anticoagulations in view of his recent episodes of GI bleed that needed blood transfusions Objective - Vital Signs Vital signs: Vital Signs Temp 97.9 F 06/13/19 03:12 Pulse 104 H 06/13/19 07:28 Resp 20 06/13/19 03:12 BP 93/55 06/13/19 03:12 Pulse Ox 95 06/13/19 03:12 Intake & Output 06/12/19 06/13/19 06/13/19 18:59 06:59 18:59 Intake Total 774.348 818.351 Output Total 2075 200 500 Balance -1300.652 618.351 -500 Weight 79 kg Intake: IV 450 0.9 50 Nafcillin 2 gm In 400 Dextrose 5% in Water 100 ml @ 50 mls/hr IVPB Q4HR LOUIE Rx#:[id number] Intake, IV Titration 224.348 122.351 Amount DOBUTamine DRIP 500 mg In 224.348 122.351 Dextrose/Water 1 250ml. bag @ 5 MCG/KG/MIN 13.275 mls/hr IV .[id number] LOUIE Rx#:[id number] Oral 550 246 Output: Urine 2075 100 500 Stool 100 Other: Voiding Method Indwelling Catheter Indwelling Catheter # Bowel Movements 1 2 - Exam -GENERAL: The patient is drowsy, answers simple questions, not in any acute distress. Thin built and generally weak HEENT: Pupils are round and equally reacting to light. EOMI. No scleral icterus. No conjunctival pallor. Normocephalic, atraumatic. No pharyngeal erythema. No thyromegaly. CARDIOVASCULAR: S1 and S2 present. No murmurs, rubs, or gallops. PULMONARY: Chest is clear to auscultation, no wheezing or crackles. ABDOMEN: Soft, nontender, nondistended, normoactive bowel sounds. No palpable organomegaly. MUSCULOSKELETAL: No joint swelling or deformity. EXTREMITIES: No cyanosis, clubbing, or pedal edema. NEUROLOGICAL: Gross neurological examination did not reveal any focal deficits. SKIN: No rashes. no petechiae. - Labs CBC & Chem 7: 06/13/19 06:38 06/13/19 06:38 Labs: Abnormal Lab Results - Last 24 Hours (Table) 06/12/19 06/13/19 06/13/19 Range/Units 16:29 06:38 06:38 WBC 14.0 H (3.8-10.6) k/uL RBC 2.83 L (4.30-5.90) m/uL Hgb 8.6 L (13.0-17.5) gm/dL Hct 25.0 L (39.0-53.0) % RDW 18.8 H (11.5-15.5) % Plt Count 54 L (150-450) k/uL Neutrophils # 12.3 H (1.3-7.7) k/uL Sodium 134 L (137-145) mmol/L Potassium 3.3 L 3.0 L (3.5-5.1) mmol/L Chloride 86 L (98-107) mmol/L Carbon Dioxide 38 H (22-30) mmol/L BUN 80 H (9-20) mg/dL Creatinine 2.75 H (0.66-1.25) mg/dL Calcium 8.1 L (8.4-10.2) mg/dL Assessment and Plan Assessment: Infective endocarditis, continue with antibiotics Acute blood loss anemia, status post several units of blood transfusion Acute on chronic congestive heart failure Combined Septic and cardiogenic shock secondary to above, continue with pressors as needed Acute kidney injury History of coronary artery disease COPD, not in acute exacerbation GERD Bicytopenia with anemia and thrombocytopenia History of bladder cancer, status post TURP Hyperlipidemia Osteoarthritis Benign prostatic hypertrophy Hypothyroidism Sleep apnea Chronic back pain with herniated disc Generalized weakness Plan: This is a pleasant 79 years old male who presents with septic and cardiogenic shock, he has infective endocarditis. Continue with the current antibiotics. Continue with diuretic with Bumex injections. Blood transfusion to keep hemogl obin above 7. Continue on a pressors as per critical care team recommendations. Follow-up recommendations of nephrology and infectious disease team as well as hook and eye machine operator.Labs and medication were reviewed. since pt has some improvement , we will continue with same treatment hoping he will continue to improve. Continue same treatment. Continue with symptomatic treatment. Resume home medication. Monitor lytes and vitals. DVT and GI prophylaxis. Further recommendations of the clinical course of the patient DVT prophylaxis: Discontinue Subcutaneous heparin in view of possible GI bleed and thrombocytopenia GI Prophylaxis: PPI Prognosis is guarded CODE STATUS: DO NOT RESUSCITATE
[2019-06-13] MEDS ORDERED: FLUCONAZOLE 100 MG TAB PO ONE (22:01)
[2019-06-13] MEDS: MONTELUKAST 10 MG TAB PO SCH (22:22)
[2019-06-13] MEDS: SERTRALINE 50 MG TAB PO SCH (22:22)
--- NOTE | 2019-06-13 23:40 | PN ---
PROGRESS NOTE DATE OF SERVICE: 06/13/2019 REASON FOR FOLLOWUP: Mitral valve endocarditis. INTERVAL HISTORY: The patient is currently afebrile. The patient is breathing comfortably. He denies having any chest pain. Occasional cough. No nausea, vomiting and no diarrhea. PHYSICAL EXAMINATION: Blood pressure 84/47 with a pulse of 110, temperature 98. He is 94% on 4 L nasal cannula. General description is an elderly male lying in bed in no distress. RESPIRATORY SYSTEM: Unlabored breathing with decreased breath sounds at the base. No wheeze. HEART: S1, S2. Regular rate and rhythm. ABDOMEN: Soft. No tenderness. LABS: Hemoglobin 8.6, white count 14,000, BUN of 80, creatinine 2.75. DIAGNOSTIC IMPRESSION AND PLAN: 1. Patient with mitral valve endocarditis, currently covered with nafcillin; switch to cefazolin on discharge for a 6-week course of therapy. 2. Patient with slight jump in the white count with possible component of oropharyngeal candidiasis. Will start the patient on Diflucan. Repeat CBC tomorrow. MMODL / IJN: [id number] /
[2019-06-14] MEDS: NAFCILLIN 2 GM in DEXTROSE 5% IN WATER 100 ML IVPB SCH ×6 (00:17→09:23)
[2019-06-14] MEDS: SODIUM CHLORIDE 0.9% 1,000 ML IV SCH (00:26)
[2019-06-14] MEDS: HYDROCORTISONE SUCCINATE 100 MG/2 ML VIAL IV SCH ×2 (01:12→09:23)
[2019-06-14 07:21] LABS: Anisocytosis Slight; Basophils % (A) 0 %; Eosinophils % (A) 0 %; HCT 23.2 % (39.0-53.0); HGB 7.8 gm/dL (13.0-17.5); Lymphocytes # (A) 0.7 k/uL (1.0-4.8); Lymphocytes % (A) 6 %; MCH 31.1 pg (25.0-35.0); MCHC 33.7 g/dL (31.0-37.0); MCV 92.3 fL (80.0-100.0); Macrocytosis Slight; Mean Platelet Volume 7.2; Monocytes # (A) 0.3 k/uL (0-1.0); Monocytes % (A) 3 %; Neutrophils # (A) 10.5 k/uL (1.3-7.7); Neutrophils % (A) 90 %; RBC 2.51 m/uL (4.30-5.90); RDW 19.1 % (11.5-15.5); WBC 11.6 k/uL (3.8-10.6)
[2019-06-14 07:22] LABS: Platelet Count 48 k/uL (150-450)
[2019-06-14 07:52] LABS: Calcium 7.8 mg/dL (8.4-10.2)
[2019-06-14 07:55] LABS: Potassium 2.6 mmol/L (3.5-5.1)
[2019-06-14] MEDS: SYMBICORT 160-4.5 MCG INHALER INHALATION SCH (08:22)
[2019-06-14] MEDS: IPRATROPIUM-ALBUTEROL 3 ML NEB INHALATION SCH ×2 (08:22→11:34)
[2019-06-14] MEDS: OXYBUTYNIN XL 5 MG TAB.ER.24 PO SCH (09:14)
[2019-06-14] MEDS: LEVOTHYROXINE 112 MCG TAB PO SCH (09:22)
[2019-06-14] MEDS: CHOLESTYRAMINE (WITH SUGAR) 4 GM PACKET PO SCH (09:22)
[2019-06-14] MEDS: POTASSIUM CHLORIDE ER 20 MEQ TAB.ER PO SCH (09:22)
[2019-06-14] MEDS: MIDODRINE 5 MG TAB PO SCH (09:22)
[2019-06-14] MEDS: PANTOPRAZOLE 40 MG/10 ML VIAL IVP SCH (09:23)
[2019-06-14 11:19] VITALS: BMI 15.5
[2019-06-14 11:41] VITALS: TEMP 98.2
[2019-06-14 12:32] VITALS: BP 76/36; PULSE 87; RESP 16
[2019-06-14] MEDS ORDERED: FLUCONAZOLE 100 MG TAB PO SCH (13:00)
--- NOTE | 2019-06-14 17:02 | PN ---
PROGRESS NOTE Patient is seen for followup for acute kidney injury. Patient is currently being diuresed for severe volume overload. He was maintained on dobutamine drip and Bumex drip. The Bumex drip has been discontinued. Patient was switched to IV push Bumex. I will discontinue the dobutamine as well today. Renal function has improved to some degree, with creatinine now at 2.59. On examination this morning, blood pressure was low at 84/57, heart rate of 87 per minute. Patient is afebrile. EXAMINATION OF THE HEART: S1 and S2. EXAMINATION OF LUNGS: Decreased breath sounds at bases. ABDOMEN: Soft, non-tender. Examination of lower extremities shows much decreased edema. Labs show hemoglobin 7.8, sodium 136, potassium 2.6, BUN 74, creatinine 2.59. ASSESSMENT: 1. Acute kidney injury, acute tubular necrosis and component of cardiorenal syndrome as well, currently slowly improving. Discontinue the dobutamine drip. Decrease IV Bumex. 2. Hypokalemia secondary to diuretics, being replaced. 3. Sepsis from endocarditis with Staphylococcus aureus which is methicillin- susceptible Staphylococcus aeruginosa. 4. Urinary tract infection. Urine culture grew Klebsiella pneumoniae. Repeat urine culture was negative. 5. Generalized debility. 6. Anemia, with no active bleeding noted; maintained on Aranesp. PLAN: Decrease Bumex to 0.5 mg twice a day. Discontinue dobutamine. Replace potassium and repeat labs in a.m. MMODL / IJN: [id number] /
--- NOTE | 2019-06-14 17:19 | P.DS ---
Providers Date of admission: 05/20/19 23:22 Expected date of discharge: 06/14/19 Attending physician: John Gill Consults: 05/21/19 09:41 Consult Physician Urgent Consulting Provider: Nataliia Brooks Consult Reason/Comments: Sepsis Do you want consulting provider notified?: Yes 05/21/19 09:43 Consult Physician Routine Consulting Provider: Leyla Mtz Consult Reason/Comments: Renal Failure Do you want consulting provider notified?: Yes Consult Physician Urgent Consulting Provider: Deven Sandoval Consult Reason/Comments: ICU managment & sepsis Do you want consulting provider notified?: Yes 05/25/19 13:29 Consult Physician Urgent Consulting Provider: Emanuel Cabezas Consult Reason/Comments: jose/endocarditis Do you want consulting provider notified?: Yes 05/26/19 09:06 Consult Physician Urgent Consulting Provider: Lázaro Gayle Consult Reason/Comments: JOSE/endocarditis Do you want consulting provider notified?: Yes 05/28/19 14:48 Consult Physician Urgent Consulting Provider: Juan J Beltran Consult Reason/Comments: Endocarditis Do you want consulting provider notified?: Yes 06/09/19 08:10 Consult Physician Urgent Consulting Provider: Bre Gayle Consult Reason/Comments: GI Bleed-positive occult and decreased Hbg Do you want consulting provider notified?: Yes Primary care physician: Jess [facility] Course: 79 years old male with past medical history of coronary artery disease, heart failure, COPD, GERD, hyperlipidemia, osteoarthritis, benign prostatic hypertrophy, hypothyroidism, sleep apnea on CPAP/BiPAP, chronic back pain with herniated disc. Patient has been in the ICU for several days for septic shock secondary to endocarditis with MSSA, complicated by acute congestive heart failure with ejection fraction 30%. Also patient has worsening creatinine up to 3.4, baseline creatinine is 1.1 Patient is tachycardic and hypotensive, he is on pressors. Potassium is low at 2.8, being replaced, creatinine is elevated at 3.4, baseline is around 1.2. Sugar is controlled. WBC is 9.6, hemoglobin 6.8 which is been going on for a few days. 06/08/2019 Patient is with cup and sitting in the chair, he still feels generally weak, his hematocrit was stopped today and his blood pressure is holding up, current blood pressure is 84/66 and biopsies 69, distal and dobutamine drip at 5, he has left- sided PICC line. His hemoglobin is up today to 7.1, creatinine 3.5. Regrinder Operator evaluation is appreciated 06/09/2019 Patient is resting in bed not in distress however he looks more lethargic today. He is afebrile however his blood pressure is 120/72 and slightly tachycardic at 100 bpm, patient today has adequate a drop in his hemoglobin down from 7.10 to 5.6, patient remains in the ICU because of his physical conditions and they get into units of blood transfusion. Potassium is also on the low side with 2.9 was coming to be replaced, low sodium at 135. Creatinine is still elevated at 3.5. Albumin was started yesterday and today he was started on Protonix twice daily. 06/10/2019 Patient in the ICU, distal and critical condition. However he is awake and answers some questions appropriately and follow command however remains confused and weak. He is hemodynamically stable and he is saturating 91% on 6 L oxygen by high flow cannula. Patient remains afebrile. Labs reviewed today showing hemoglobin of 8.2, his platelets today is 40, after receiving several units of blood transfusion, no leukocytosis and WBC is 9.5K, sodium 135, creatinine 2.8 slightly lower than yesterday. He has bilateral leg edema. Patient remains on Bumex and dobutamine drips however quit. His blood pressure this morning was 101/61. His heparin and aspirin will discontinue it and patient was placed on Protonix 40 mg twice daily 06/11/2019 06/11/2019 Patient remains in the ICU, clinically looks the same is still confused and generally weak. On exam he has bilateral leg edema about 2+. He remains in the Bumex at 1 and dobutamine at 5, his vitals are stable history old and respiratory failure needed for liters of oxygen, blood pressure is more stable, chest x-ray were suspicious for developing pneumonia in the right lung base. However has no leukocytosis. His creatinine 3.0 which is around the same. Hemoglobin stable at 8.4 and platelets stable at 39, potassium 3.4 which is been replaced. He is having brown stools with some little black however his hemoglobin is stable, discussed with the staff 06/12/19 Patient is transferred to the general medical floor. His sitting in bed slightly tachypneic, confused which is been the case since I evaluated him. No chest pain or abdominal pain. Tolerating diet well. He looks weak and tired. Patient Anastacio looks stable with blood pressure 126/79, and saturating 94% on room air. He has mild leukocytosis today of 13.2 K, hemoglobin stable at 8.4, platelets 40 5K, sodium 131, potassium 3.2, creatinine is down to 2.7. Patient remains on Bumex drip at 1 and dobutamine drip at 5. Also his on nafcillin for his SBE office mitral valve with MSSA. 06/13/2019 Patient is seen in the general medical floor. He is more awake and more comfortable however he is a still confused. Bumex drip has stopped and is going to be changed to IV Bumex injection however he still on dobutamine drip, his blood pressure is still on the low side, like this morning was 85/53 and 93/55. He saturating in the 90s while he is on 3 L oxygen via nasal cannula. Patient is slightly tachycardic. Labs showed leukocytosis of 14 K. However his and his steroids. Sodium 134, potassium 3.0 which is been replaced. Creatinine is stable at 2.75. Pulmonary and infectious disease R following the case closely. His platelets improved today to 54 however we'll keep the patient off subc utaneous heparin or other anticoagulations in view of his recent episodes of GI bleed that needed blood transfusions 06/14/2019; patient and family decided for hospice care Patient Condition at Discharge: Serious Plan - Discharge Summary Discharge Rx Participant: No New Discharge Prescriptions: No Action Sertraline [Zoloft] 50 mg PO HS Levothyroxine Sodium [Synthroid] 112 mcg PO DAILY Isosorbide Mononitrate ER [Imdur] 30 mg PO DAILY Atorvastatin [Lipitor] 20 mg PO HS@2000 Tolterodine ER [Detrol LA] 2 mg PO DAILY Montelukast [Singulair] 10 mg PO HS Ipratropium-Albuterol Nebulize [Duoneb 0.5 mg-3 mg/3 ml Soln] 3 ml INHALATION RT-TID Budesonide-Formot 160-4.5 Mcg [Symbicort 160-4.5 Mcg Inhaler] 2 puff INHALATION RT-BID Cranberry Fruit Concentrate [Azo Cranberry] 250 mg PO DAILY Aspirin 81 mg PO DAILY #30 chew Pantoprazole [Protonix] 40 mg PO DAILY #30 tablet. Acetaminophen Tab [Tylenol] 650 mg PO Q4HR PRN tab PRN Reason: Fever And/Or Mild Pain Losartan [Cozaar] 12.5 mg PO DAILY #30 tab Fluticasone Nasal Greenback [Flonase Nasal Greenback] 1 spray EA NOSTRIL DAILY 30 Days #1 bottle Fludrocortisone [Florinef] 0.1 mg PO DAILY #30 tab Potassium Chloride ER [K-Dur 20] 20 meq PO DAILY 30 Days #30 tab predniSONE See Taper PO DIRECTED Potassium Chloride ER [K-Dur 20] 40 meq PO DAILY Phenazopyridine [Pyridium] 200 mg PO ONCE Nystatin 100,000 Unit/ml Susp [Mycostatin Oral Susp] 500,000 unit PO QID Midodrine HCl [ProAmatine] 10 mg PO TID@0700,1100,1600 Furosemide [Lasix] 40 mg PO BID Fluconazole [Diflucan] 150 mg PO ONCE Ensure 1 can PO DAILY cefTRIAXone [Rocephin] 1 gm IVPB ONCE Amoxic-Pot Clav 875-125Mg [Augmentin 875-125] 1 tab PO BID@0700,1900 Discharge Medication List Atorvastatin [Lipitor] 20 mg PO HS@199905/09/17 [History] Isosorbide Mononitrate ER [Imdur] 30 mg PO DAILY 05/09/17 [History] Levothyroxine Sodium [Synthroid] 112 mcg PO DAILY 05/09/17 [History] Sertraline [Zoloft] 50 mg PO HS 05/09/17 [History] Tolterodine ER [Detrol LA] 2 mg PO DAILY 02/20/19 [History] Ipratropium-Albuterol Nebulize [Duoneb 0.5 mg-3 mg/3 ml Soln] 3 ml INHALATION RT-TID 03/29/19 [History] Montelukast [Singulair] 10 mg PO HS 03/29/19 [History] Budesonide-Formot 160-4.5 Mcg [Symbicort 160-4.5 Mcg Inhaler] 2 puff INHALATION RT-BID 04/08/19 [History] Cranberry Fruit Concentrate [Azo Cranberry] 250 mg PO DAILY 04/08/19 [History] Acetaminophen Tab [Tylenol] 650 mg PO Q4HR PRN tab 04/17/19 [Rx] Aspirin 81 mg PO DAILY #30 chew 04/17/19 [Rx] Pantoprazole [Protonix] 40 mg PO DAILY #30 tablet. 04/17/19 [Rx] Fludrocortisone [Florinef] 0.1 mg PO DAILY #30 tab 05/16/19 [Rx] Fluticasone Nasal Greenback [Flonase Nasal Greenback] 1 spray EA NOSTRIL DAILY 30 Days #1 bottle 05/16/19 [Rx] Losartan [Cozaar] 12.5 mg PO DAILY #30 tab 05/16/19 [Rx] Potassium Chloride ER [K-Dur 20] 20 meq PO DAILY 30 Days #30 tab 05/16/19 [Rx] Amoxic-Pot Clav 875-125Mg [Augmentin 875-125] 1 tab PO BID@0700,1900 05/20/19 [History] Ensure 1 can PO DAILY 05/20/19 [History] Fluconazole [Diflucan] 150 mg PO ONCE 05/20/19 [History] Furosemide [Lasix] 40 mg PO BID 05/20/19 [History] Midodrine HCl [ProAmatine] 10 mg PO TID@0700,1100,1600 05/20/19 [History] Nystatin 100,000 Unit/ml Susp [Mycostatin Oral Susp] 500,000 unit PO QID 05/20/19 [History] Phenazopyridine [Pyridium] 200 mg PO ONCE 05/20/19 [History] Potassium Chloride ER [K-Dur 20] 40 meq PO DAILY 05/20/19 [History] cefTRIAXone [Rocephin] 1 gm IVPB ONCE 05/20/19 [History] predniSONE See Taper PO DIRECTED 05/20/19 [History] Follow up Appointment(s)/Referral(s): Leyla Mtz MD [STAFF PHYSICIAN] - 07/04/19 9:40 am ( Previously scheduled appointment) Jess Singleton DO [Primary Care Provider] - 1-2 days Hany Kilpatrick MD [STAFF PHYSICIAN] - 05/31/19 3:00 pm (Monday -previously scheduled appointment) Activity/Diet/Wound Care/Special Instructions: [facility] Discharge Disposition: DC/TRNS IP HOSP W/[facility] IP READ
[2019-06-14] MEDS ORDERED: BUMETANIDE 0.25 MG/ML 4 ML VIAL IV SCH (21:00)
== END 2019-06-14 15:02 | disposition hospice, inpatient (51) | DRG 871 ==
LOC: EC 21:17 → 3SCARD 23:22 → 2SICU 05-21 10:13 → 3SCARD 06-11 13:38
PROVIDERS: ADMIT Hospitalist; ATTEND Hospitalist
PROC: 30233N1 Transfusion of Nonautologous Red Blood Cells into Peripheral Vein, Percutaneous Approach (ICD-10-PCS; 2019-05-21)
PROC: B24BZZ4 Ultrasonography of Heart with Aorta, Transesophageal (ICD-10-PCS; 2019-05-28)
PROC: 02HV33Z Insertion of Infusion Device into Superior Vena Cava, Percutaneous Approach (ICD-10-PCS; principal; 2019-05-30 13:11)
DX: A41.01 Sepsis due to Methicillin susceptible Staphylococcus aureus (principal); I33.0 Acute and subacute infective endocarditis; I21.4 Non-ST elevation (NSTEMI) myocardial infarction; I50.23 Acute on chronic systolic (congestive) heart failure; J96.21 Acute and chronic respiratory failure with hypoxia; J96.22 Acute and chronic respiratory failure with hypercapnia; N17.0 Acute kidney failure with tubular necrosis; R57.0 Cardiogenic shock; R65.21 Severe sepsis with septic shock; J18.1 Lobar pneumonia, unspecified organism; D62 Acute posthemorrhagic anemia; E87.1 Hypo-osmolality and hyponatremia; E87.2 Acidosis; J98.11 Atelectasis; K92.2 Gastrointestinal hemorrhage, unspecified; I13.0 Hypertensive heart and chronic kidney disease with heart failure and stage 1 through stage 4 chronic kidney disease, or unspecified chronic kidney disease; N39.0 Urinary tract infection, site not specified; B37.0 Candidal stomatitis; Z68.1 Body mass index [BMI] 19.9 or less, adult; Z51.5 Encounter for palliative care; Z66 Do not resuscitate; B95.2 Enterococcus as the cause of diseases classified elsewhere; D69.6 Thrombocytopenia, unspecified; E88.09 Other disorders of plasma-protein metabolism, not elsewhere classified; E86.1 Hypovolemia; G62.9 Polyneuropathy, unspecified; E83.51 Hypocalcemia; I25.5 Ischemic cardiomyopathy; J43.9 Emphysema, unspecified; R54 Age-related physical debility; C67.9 Malignant neoplasm of bladder, unspecified; D64.89 Other specified anemias; R32 Unspecified urinary incontinence; E03.9 Hypothyroidism, unspecified; E78.5 Hyperlipidemia, unspecified; E87.6 Hypokalemia; G47.33 Obstructive sleep apnea (adult) (pediatric); G89.29 Other chronic pain; H91.90 Unspecified hearing loss, unspecified ear; I25.10 Atherosclerotic heart disease of native coronary artery without angina pectoris; I25.2 Old myocardial infarction; I71.9 Aortic aneurysm of unspecified site, without rupture; K21.9 Gastro-esophageal reflux disease without esophagitis; M19.90 Unspecified osteoarthritis, unspecified site; N18.9 Chronic kidney disease, unspecified; N40.0 Benign prostatic hyperplasia without lower urinary tract symptoms; N48.5 Ulcer of penis; T50.2X5A Adverse effect of carbonic-anhydrase inhibitors, benzothiadiazides and other diuretics, initial encounter; K64.9 Unspecified hemorrhoids; M54.9 Dorsalgia, unspecified; R19.7 Diarrhea, unspecified; T36.95XA Adverse effect of unspecified systemic antibiotic, initial encounter; E66.9 Obesity, unspecified; Z79.51 Long term (current) use of inhaled steroids; Z79.52 Long term (current) use of systemic steroids; Z79.82 Long term (current) use of aspirin; Z79.890 Hormone replacement therapy; Z79.899 Other long term (current) drug therapy; Z85.828 Personal history of other malignant neoplasm of skin; Z87.01 Personal history of pneumonia (recurrent); Z95.1 Presence of aortocoronary bypass graft; Z99.81 Dependence on supplemental oxygen; Z91.041 Radiographic dye allergy status; Z87.891 Personal history of nicotine dependence; Z98.42 Cataract extraction status, left eye; Z98.41 Cataract extraction status, right eye; Z96.1 Presence of intraocular lens; Z80.3 Family history of malignant neoplasm of breast; Z80.0 Family history of malignant neoplasm of digestive organs; Y95 Nosocomial condition
CPT/HCPCS: 36410; 36415; 36430; 36573; 36600; 71045; 71046; 74018; 76604; 76937; 80048; 80053; 80074; 81001; 82040; 82272; 82330; 82533; 82570; 82805; 83010; 83540; 83550; 83605; 83615; 83735; 83880; 84100; 84132; 84156; 84484; 85025; 85027; 85610; 85652; 85730; 86038; 86140; 86160; 86162; 86225; 86255; 86334; 86335; 86850; 86900; 86901; 86920; 87040; 87077; 87086; 87186; 87205; 87324; 87502; 93005; 93306; 93312; 93320; 93325; 93970; 94640; 94760; 96360; 96361; 99291

== ENCOUNTER 2019-06-14 11:50 | Inpatient (IN) | payer MEDICAID ==
[2019-06-14] MEDS ORDERED: ONDANSETRON 4 MG/2 ML VIAL IVP PRN (11:53)
[2019-06-14] MEDS ORDERED: ACETAMINOPHEN SUPPOSITORY 650 MG SUPP RECTAL PRN (11:53)
[2019-06-14] MEDS ORDERED: MORPHINE SULFATE 2 MG/ML SYRINGE IV PRN (11:53)
[2019-06-14] MEDS ORDERED: LORazepam 2 MG/ML INJ IV PRN (11:53)
[2019-06-14] MEDS ORDERED: ATROPINE OPHTH SOLN 1% 5ML BTL SUBLINGUAL PRN (11:53)
[2019-06-14] MEDS ORDERED: SCOPOLAMINE 1.5MG/72HR PATCH TRANSDERM SCH (12:00)
--- NOTE | 2019-06-15 00:50 | PN ---
PROGRESS NOTE Mr. Carolee Pedersen is a gentleman with multivalvular endocarditis. He has also hypotension, on dopamine. Renal dysfunction is there, however, supportive care and antibiotics are in place. Vital signs stable. S1/S2 heard normally. Short systolic murmur noted. Lungs reveal diminished air entry. Abdomen and lower extremity exam unchanged. I will supplement potassium, continue dopamine. No other intervention. Prognosis remains poor. MMODL / IJN: [id number] /
[2019-06-15 10:59] VITALS: BMI 15.3
[2019-06-15] MEDS: MORPHINE SULFATE 2 MG/ML SYRINGE IVP SCH ×4 (12:43→22:49)
--- NOTE | 2019-06-15 15:59 | P.HPIM ---
History of Present Illness H&P Date: 06/15/19 Chief Complaint: Sepsis 79-year-old male patient who had a long hospital stay for multiple complications and comorbidities and was decided to be admitted to hospice per patient and family consent; patient is more awake and talkative this morning and does not seem to be in any distress Review of Systems ROS unobtainable: due to mental status Past Medical History Past Medical History: Coronary Artery Disease (CAD), Cancer, Chest Pain / Angina, Heart Failure, COPD, GERD/Reflux, Hyperlipidemia, Myocardial Infarction (ND), Osteoarthritis (OA), Pneumonia, Prostate Disorder, Sleep Apnea/CPAP/BIPAP, Thyroid Disorder Additional Past Medical History / Comment(s): BACK PAIN,herniated disc, pinched nerves,emphysema, hemorrhoids,skin cancer, walt cataracts-had sx, thin skin prone to bruises/skin tears. Last Myocardial Infarction Date:: unk History of Any Multi-Drug Resistant Organisms: None Reported Past Surgical History: Coronary Bypass/CABG Additional Past Surgical History / Comment(s): cataracts, 3 vessel cabg, past peg tube since removed." lizbet in penis", hemorrhoids, ?egd. pmh : lap heller myotomy Past Anesthesia/Blood Transfusion Reactions: No Reported Reaction Past Psychological History: No Psychological Hx Reported Smoking Status: Former smoker Past Alcohol Use History: None Reported Past Drug Use History: None Reported - Past Family History Mother Family Medical History: Cancer Additional Family Medical History / Comment(s): breast cancer Sister(s) Family Medical History: Cancer Additional Family Medical History / Comment(s): colon cancer Father History Unknown: Yes Additional Family Medical History / Comment(s): pt's father when pt was 3 years old. Medications and Allergies Home Medications Medication Instructions Recorded Confirmed Type Atorvastatin [Lipitor] 20 mg PO HS@199905/09/17 06/14/19 History Isosorbide Mononitrate ER [Imdur] 30 mg PO DAILY 05/09/17 06/14/19 History Levothyroxine Sodium [Synthroid] 112 mcg PO DAILY 05/09/17 06/14/19 History Sertraline [Zoloft] 50 mg PO HS 05/09/17 06/14/19 History Tolterodine ER [Detrol LA] 2 mg PO DAILY 02/20/19 06/14/19 History Ipratropium-Albuterol Nebulize 3 ml INHALATION RT-TID 03/29/19 06/14/19 History [Duoneb 0.5 mg-3 mg/3 ml Soln] Montelukast [Singulair] 10 mg PO HS 03/29/19 06/14/19 History Budesonide-Formot 160-4.5 Mcg 2 puff INHALATION RT-BID 04/08/19 06/14/19 History [Symbicort 160-4.5 Mcg Inhaler] Cranberry Fruit Concentrate [Azo 250 mg PO DAILY 04/08/19 06/14/19 History Cranberry] Acetaminophen Tab [Tylenol] 650 mg PO Q4HR PRN tab 04/17/19 06/14/19 Rx Aspirin 81 mg PO DAILY #30 chew 04/17/19 06/14/19 Rx Pantoprazole [Protonix] 40 mg PO DAILY #30 tablet. 04/17/19 06/14/19 Rx Fludrocortisone [Florinef] 0.1 mg PO DAILY #30 tab 05/16/19 06/14/19 Rx Fluticasone Nasal [place] [Flonase 1 spray EA NOSTRIL DAILY 30 Days 05/16/19 06/14/19 Rx Nasal [place]] #1 bottle Losartan [Cozaar] 12.5 mg PO DAILY #30 tab 05/16/19 06/14/19 Rx Potassium Chloride ER [K-Dur 20] 20 meq PO DAILY 30 Days #30 tab 05/16/19 06/14/19 Rx Amoxic-Pot Clav 875-125Mg 1 tab PO BID@0700,1900 05/20/19 06/14/19 History [Augmentin 875-125] Ensure 1 can PO DAILY 05/20/19 06/14/19 History Fluconazole [Diflucan] 150 mg PO ONCE 05/20/19 06/14/19 History Furosemide [Lasix] 40 mg PO BID 05/20/19 06/14/19 History Midodrine HCl [ProAmatine] 10 mg PO TID@0700,1100,1600 05/20/19 06/14/19 History Nystatin 100,000 Unit/ml Susp 500,000 unit PO QID 05/20/19 06/14/19 History [Mycostatin Oral Susp] Phenazopyridine [Pyridium] 200 mg PO ONCE 05/20/19 06/14/19 History Potassium Chloride ER [K-Dur 20] 40 meq PO DAILY 05/20/19 06/14/19 History cefTRIAXone [Rocephin] 1 gm IVPB ONCE 05/20/19 06/14/19 History predniSONE See Taper PO DIRECTED 05/20/19 06/14/19 History Allergies Allergy/AdvReac Type Severity Reaction Status Date / Time iodine Allergy Rash/Hives Verified 06/14/19 15:49 Physical Exam Vitals: Vital Signs Temp Pulse Resp BP Pulse Ox 06/15/19 08:00 98.6 F 72 16 81/49 92 L 06/15/19 04:00 62 20 06/14/19 20:00 99.7 F H 62 18 91/55 99 Intake and Output 06/14/19 06/15/19 06/15/19 22:59 06:59 14:59 Intake Total 210 700 Output Total 400 920 Balance -190 -220 Intake: Oral 210 700 Output: Urine 400 920 Other: Voiding Method Indwelling Catheter Indwelling Catheter Indwelling Catheter Weight 44.5 kg 44.5 kg PHYSICAL EXAMINATION: GENERAL: The patient is alert and oriented x3, not in any acute distress. Well developed, well nourished. HEENT: Pupils are round and equally reacting to light. EOMI. No scleral icterus. No conjunctival pallor. Normocephalic, atraumatic. No pharyngeal erythema. No thyromegaly. CARDIOVASCULAR: S1 and S2 present. No murmurs, rubs, or gallops. PULMONARY: Chest is clear to auscultation, no wheezing or crackles. ABDOMEN: Soft, nontender, nondistended, normoactive bowel sounds. No palpable organomegaly. MUSCULOSKELETAL: No joint swelling or deformity. EXTREMITIES: No cyanosis, clubbing, or pedal edema. NEUROLOGICAL: Gross neurological examination did not reveal any focal deficits. SKIN: No rashes. Assessment and Plan Assessment: Sepsis CAD/CHF COPD Hyperlipidemia Patient remains on comfort care medications in form of morphine sulfate, scop olamine patch, Zofran and IV Ativan; continue with hospice standing orders Time with Patient: Less than 30
[2019-06-15 20:16] VITALS: BP 88/66; PULSE 66; TEMP 97.7
[2019-06-16] MEDS: MORPHINE SULFATE 2 MG/ML SYRINGE IVP SCH ×2 (01:58→05:20)
[2019-06-16 04:30] VITALS: RESP 37
--- NOTE | 2019-06-16 12:43 | P.PN ---
Subjective Progress Note Date: 06/16/19 Principal diagnosis: Hospice care 06/16/2019 Patient is seen and evaluated in room with family members at bedside; patient remains comfortable; hospice comfort measures on board Objective - Vital Signs Vital signs: Vital Signs Temp 97.7 F 06/15/19 20:00 Pulse 66 06/15/19 20:00 Resp 37 H 06/16/19 04:00 BP 88/66 06/15/19 20:00 Pulse Ox 91 L 06/15/19 20:00 Intake & Output 06/15/19 06/16/19 06/16/19 18:59 06:59 18:59 Intake Total 900 Output Total 920 450 Balance -20 -450 Weight 44.5 kg Intake: Oral 900 Output: Urine 920 450 Other: Voiding Method Indwelling Catheter - Exam - Constitutional General appearance: Present: average body habitus, cooperative, no acute distress - EENT Eyes: Present: anicteric sclerae, EOMI, PERRLA, normal appearance ENT: Present: hearing grossly normal, normal oropharynx Ears: bilateral: normal - Neck Neck: Present: normal ROM. Absent: lymphadenopathy, rigidity, thyromegaly Carotids: negative: bruit present Thyroid: bilateral: normal size, negative: enlarged, nodule - Respiratory Respiratory: bilateral: CTA, negative: rales, rhonchi, wheezing - Cardiovascular Rhythm: regular Heart sounds: normal: S1, S2 Abnormal Heart Sounds: Absent: systolic murmur, diastolic murmur - Gastrointestinal General gastrointestinal: Present: normal bowel sounds, soft. Absent: distended, organomegaly, tenderness - Genitourinary Genitourinary Comment(s): deferred - Integumentary Integumentary: Present: normal turgor. Absent: jaundiced, rash, ulcer - Neurologic Neurologic: Present: CNII-XII intact. Absent: focal deficits - Musculoskeletal Musculoskeletal: Present: gait normal, strength equal bilaterally - Psychiatric Psychiatric: Present: A&O x's 3, appropriate affect, intact judgment & insight Assessment and Plan Assessment: Sepsis CAD/CHF COPD Hyperlipidemia Patient remains on comfort care medications in form of morphine sulfate, scopolamine patch, Zofran and IV Ativan; continue with hospice standing orders Time with Patient: Less than 30
== END 2019-06-16 18:19 | disposition expired | DRG 951 ==
LOC: 3SCARD 15:04
PROVIDERS: ADMIT Internal Medicine; ATTEND Internal Medicine
DX: Z51.5 Encounter for palliative care (principal); A41.9 Sepsis, unspecified organism; I38 Endocarditis, valve unspecified; E78.5 Hyperlipidemia, unspecified; Z66 Do not resuscitate; G47.30 Sleep apnea, unspecified; Z99.89 Dependence on other enabling machines and devices; I25.10 Atherosclerotic heart disease of native coronary artery without angina pectoris; I25.2 Old myocardial infarction; I50.9 Heart failure, unspecified; J43.9 Emphysema, unspecified; K21.9 Gastro-esophageal reflux disease without esophagitis; N28.9 Disorder of kidney and ureter, unspecified; Z79.51 Long term (current) use of inhaled steroids; Z79.52 Long term (current) use of systemic steroids; Z79.82 Long term (current) use of aspirin; Z79.890 Hormone replacement therapy; Z79.899 Other long term (current) drug therapy; Z80.0 Family history of malignant neoplasm of digestive organs; Z80.3 Family history of malignant neoplasm of breast; Z85.828 Personal history of other malignant neoplasm of skin; Z87.891 Personal history of nicotine dependence; Z95.1 Presence of aortocoronary bypass graft; E07.9 Disorder of thyroid, unspecified; N42.9 Disorder of prostate, unspecified; M54.9 Dorsalgia, unspecified; Z88.8 Allergy status to other drugs, medicaments and biological substances; Z87.01 Personal history of pneumonia (recurrent)